=== PATIENT | male | born 1960 | race Two or more races ===

== ENCOUNTER 2022-06-19 | Inpatient (IN) | payer OTHER ==
[~2022-06-19] VITALS: Ht 172.7 cm; Wt 72.1 kg
[~2022-06-19] MED LIST: ACET650S26 GT; APIX5TAB GT; ASCO-352 GT; CHLO473M5 MM; DILT30TA14 GT; FURO10VI IV; GLYC2TAB21 GT; HYDR500C2 GT; INSU100V27 SQ; INSU100V7 SQ; IPRA3AMP23 IH; LANS30CA56 GT; LORA2VIA11 IV; METO25TA20 GT; MINE3.5O26 EACHEYE; SODI473S8 TD; ZINC56.713 TP; [UNRECOGNIZED DRUG - CODE] GT
[2022-06-21] MEDS ORDERED: LACTULOSE 10 G/15 ML UDC (PYXIS) GT PRN (07:36)
[2022-06-21] MEDS ORDERED: TUBERCULIN,PURIF.PROT.DERIV. 5 TU/0.1 ML VIAL ID SCH (07:36)
[2022-06-21] MEDS ORDERED: BISACODYL SUPP (10 MG) 10 MG/SUPP.RECT SUPP.RECT RC PRN (07:36)
[2022-06-21 07:44] VITALS: BP 159/79; TEMP 98.2; O2SAT 98
[2022-06-21] MEDS: HYDROGEN PEROXIDE 480 ML BOTTLE TP SCH ×2 (09:00→20:00)
[2022-06-21] MEDS: OMEPRAZOLE 20 MG CAPSULE.DR GT SCH (09:00)
[2022-06-21] MEDS: ASPIRIN 81 MG TAB.CHEW GT SCH (09:55)
[2022-06-21] MEDS: DOCUSATE SODIUM LIQ 100 MG/10 ML UDC GT SCH ×2 (09:55→21:26)
[2022-06-21] MEDS: FUROSEMIDE 20 MG TABLET GT SCH (09:55)
[2022-06-21] MEDS: ALPRAZOLAM 0.5 MG TABLET GT SCH ×2 (09:56→21:26)
[2022-06-21] MEDS: ASCORBIC ACID 500 MG TABLET GT SCH ×2 (09:56→21:26)
[2022-06-21] MEDS: VITAMINS A AND D 56.7 GM TUBE TP SCH ×2 (09:56→21:27)
[2022-06-21] MEDS: APIXABAN 5 MG TABLET PO SCH ×2 (09:56→21:27)
[2022-06-21] MEDS: CHLORHEXIDINE GLUCONATE 15 ML UDC MM SCH ×2 (09:56→21:26)
[2022-06-21] MEDS: PROSTAT (PYXIS) 30 ML UDC GT SCH ×2 (09:58→17:23)
[2022-06-21] MEDS: BACLOFEN (10 MG) 10 MG TABLET PEG SCH ×2 (13:00→21:26)
[2022-06-21] MEDS: METOPROLOL TARTRATE 25 MG TABLET GT SCH ×2 (13:00→21:26)
[2022-06-21] MEDS: ALBUTEROL FS 2.5 MG/0.5 ML VIAL.NEB NEB SCH ×2 (13:30→18:35)
[2022-06-21] MEDS: IPRATROPIUM NEB FS 0.5 MG/2.5 ML AMPUL.NEB NEB SCH ×2 (13:30→18:35)
[2022-06-21 13:49] VITALS: O2SAT 100
[2022-06-21 19:31] VITALS: BP 109/77; TEMP 97.8; O2SAT 100
[2022-06-21 22:37] VITALS: O2SAT 99
[2022-06-21 22:54] VITALS: O2SAT 100
[2022-06-21] MEDS: JEVITY 1.2 CAL 1,000 ML BOTTLE GT PRN (23:43)
[2022-06-22] MEDS: IPRATROPIUM NEB FS 0.5 MG/2.5 ML AMPUL.NEB NEB SCH ×4 (00:55→20:00)
[2022-06-22] MEDS: ALBUTEROL FS 2.5 MG/0.5 ML VIAL.NEB NEB SCH ×4 (00:55→20:00)
[2022-06-22] MEDS: METOPROLOL TARTRATE 25 MG TABLET GT SCH ×3 (05:29→20:57)
[2022-06-22] MEDS: BACLOFEN (10 MG) 10 MG TABLET PEG SCH ×3 (05:29→20:58)
[2022-06-22 07:28] VITALS: BP 98/67; TEMP 97.7; O2SAT 99
[2022-06-22] MEDS: DOCUSATE SODIUM LIQ 100 MG/10 ML UDC GT SCH ×2 (09:13→20:57)
[2022-06-22] MEDS: FUROSEMIDE 20 MG TABLET GT SCH (09:13)
[2022-06-22] MEDS: ASPIRIN 81 MG TAB.CHEW GT SCH (09:13)
[2022-06-22] MEDS: CHLORHEXIDINE GLUCONATE 15 ML UDC MM SCH ×2 (09:14→20:58)
[2022-06-22] MEDS: OMEPRAZOLE 20 MG CAPSULE.DR GT SCH (09:14)
[2022-06-22] MEDS: VITAMINS A AND D 56.7 GM TUBE TP SCH ×2 (09:14→20:58)
[2022-06-22] MEDS: APIXABAN 5 MG TABLET PO SCH ×2 (09:14→20:58)
[2022-06-22] MEDS: ALPRAZOLAM 0.5 MG TABLET GT SCH ×2 (09:14→20:58)
[2022-06-22] MEDS: PROSTAT (PYXIS) 30 ML UDC GT SCH ×2 (09:14→17:00)
[2022-06-22] MEDS: ASCORBIC ACID 500 MG TABLET GT SCH ×2 (09:14→20:58)
[2022-06-22] MEDS: HYDROGEN PEROXIDE 480 ML BOTTLE TP SCH ×2 (09:39→20:01)
[2022-06-22 10:10] VITALS: O2SAT 100
[2022-06-22 12:11] VITALS: BP 108/70; TEMP 97.4; O2SAT 100
[2022-06-22] MEDS: JEVITY 1.2 CAL 1,000 ML BOTTLE GT PRN (18:16)
[2022-06-22 20:28] VITALS: BP 100/59; TEMP 97.7; O2SAT 98
[2022-06-22 22:46] VITALS: O2SAT 100
[2022-06-23 00:11] VITALS: BP 103/61; TEMP 97.7; O2SAT 99
[2022-06-23] MEDS: IPRATROPIUM NEB FS 0.5 MG/2.5 ML AMPUL.NEB NEB SCH ×4 (01:42→20:06)
[2022-06-23] MEDS: ALBUTEROL FS 2.5 MG/0.5 ML VIAL.NEB NEB SCH ×4 (01:42→20:06)
[2022-06-23] MEDS: METOPROLOL TARTRATE 25 MG TABLET GT SCH ×3 (05:00→20:54)
[2022-06-23] MEDS: BACLOFEN (10 MG) 10 MG TABLET PEG SCH ×3 (05:47→20:54)
[2022-06-23 07:39] VITALS: BP 102/59; TEMP 98.4; O2SAT 100
[2022-06-23] MEDS: HYDROGEN PEROXIDE 480 ML BOTTLE TP SCH ×2 (09:00→20:06)
[2022-06-23] MEDS: ASPIRIN 81 MG TAB.CHEW GT SCH (09:43)
[2022-06-23] MEDS: DOCUSATE SODIUM LIQ 100 MG/10 ML UDC GT SCH ×2 (09:43→20:53)
[2022-06-23] MEDS: OMEPRAZOLE 20 MG CAPSULE.DR GT SCH (09:46)
[2022-06-23] MEDS: FUROSEMIDE 20 MG TABLET GT SCH (09:46)
[2022-06-23] MEDS: PROSTAT (PYXIS) 30 ML UDC GT SCH ×2 (09:46→16:47)
[2022-06-23] MEDS: ASCORBIC ACID 500 MG TABLET GT SCH ×2 (09:46→20:54)
[2022-06-23] MEDS: CHLORHEXIDINE GLUCONATE 15 ML UDC MM SCH ×2 (09:46→20:54)
[2022-06-23] MEDS: ALPRAZOLAM 0.5 MG TABLET GT SCH ×2 (09:46→20:54)
[2022-06-23] MEDS: VITAMINS A AND D 56.7 GM TUBE TP SCH ×2 (09:47→20:54)
[2022-06-23] MEDS: APIXABAN 5 MG TABLET PO SCH ×2 (09:47→20:54)
[2022-06-23 12:14] VITALS: BP 115/65; TEMP 98.1; O2SAT 98
[2022-06-23] MEDS: LANOLIN/MIN OIL/PETROLAT,WHT 3.5 GM TUBE EACHEYE PRN (13:42)
[2022-06-23 14:33] VITALS: O2SAT 100
[2022-06-23] MEDS: JEVITY 1.2 CAL 1,000 ML BOTTLE GT PRN (14:37)
[2022-06-23] MEDS: MAGNESIUM HYDROXIDE 30 ML UDC GT PRN (16:48)
[2022-06-23 19:40] VITALS: BP 123/58; TEMP 97.1; O2SAT 100
[2022-06-23 23:21] VITALS: O2SAT 100
[2022-06-24 00:09] VITALS: BP 130/65; TEMP 98.9; O2SAT 100
[2022-06-24] MEDS: ACETAMINOPHEN 650 MG/20 ML UDC- SA PATIENTS-PAIN ONLY GT PRN (01:39)
[2022-06-24] MEDS: IPRATROPIUM NEB FS 0.5 MG/2.5 ML AMPUL.NEB NEB SCH ×4 (01:53→19:07)
[2022-06-24] MEDS: ALBUTEROL FS 2.5 MG/0.5 ML VIAL.NEB NEB SCH ×4 (01:53→19:07)
[2022-06-24] MEDS: METOPROLOL TARTRATE 25 MG TABLET GT SCH ×3 (05:12→21:18)
[2022-06-24] MEDS: BACLOFEN (10 MG) 10 MG TABLET PEG SCH ×3 (05:12→21:19)
[2022-06-24 07:40] VITALS: BP 110/77; TEMP 97.8; O2SAT 100
[2022-06-24] MEDS: HYDROGEN PEROXIDE 480 ML BOTTLE TP SCH ×2 (09:00→21:16)
[2022-06-24] MEDS: ASPIRIN 81 MG TAB.CHEW GT SCH (09:39)
[2022-06-24] MEDS: DOCUSATE SODIUM LIQ 100 MG/10 ML UDC GT SCH ×2 (09:39→21:17)
[2022-06-24] MEDS: OMEPRAZOLE 20 MG CAPSULE.DR GT SCH (09:39)
[2022-06-24] MEDS: FUROSEMIDE 20 MG TABLET GT SCH (09:39)
[2022-06-24] MEDS: PROSTAT (PYXIS) 30 ML UDC GT SCH ×2 (09:40→16:55)
[2022-06-24] MEDS: CHLORHEXIDINE GLUCONATE 15 ML UDC MM SCH ×2 (09:40→21:19)
[2022-06-24] MEDS: ASCORBIC ACID 500 MG TABLET GT SCH ×2 (09:40→21:18)
[2022-06-24] MEDS: ALPRAZOLAM 0.5 MG TABLET GT SCH ×2 (09:40→21:18)
[2022-06-24] MEDS: VITAMINS A AND D 56.7 GM TUBE TP SCH ×2 (09:41→21:19)
[2022-06-24] MEDS: APIXABAN 5 MG TABLET PO SCH ×2 (09:41→21:00)
[2022-06-24] MEDS: JEVITY 1.2 CAL 1,000 ML BOTTLE GT PRN (14:20)
[2022-06-24 14:21] VITALS: O2SAT 100
[2022-06-24 19:06] VITALS: BP 133/72; TEMP 97.9; O2SAT 100
[2022-06-24 23:31] VITALS: O2SAT 100
[2022-06-24 23:50] VITALS: BP 128/65; TEMP 98; O2SAT 100
[2022-06-25] MEDS: ALBUTEROL FS 2.5 MG/0.5 ML VIAL.NEB NEB SCH ×4 (00:43→19:18)
[2022-06-25] MEDS: IPRATROPIUM NEB FS 0.5 MG/2.5 ML AMPUL.NEB NEB SCH ×4 (00:43→19:18)
[2022-06-25] MEDS: BACLOFEN (10 MG) 10 MG TABLET PEG SCH ×3 (05:43→21:04)
[2022-06-25 07:33] VITALS: BP 131/87; TEMP 97.6; O2SAT 97
[2022-06-25] MEDS: DOCUSATE SODIUM LIQ 100 MG/10 ML UDC GT SCH ×2 (08:27→21:04)
[2022-06-25] MEDS: ASPIRIN 81 MG TAB.CHEW GT SCH (08:27)
[2022-06-25] MEDS: FUROSEMIDE 20 MG TABLET GT SCH (08:28)
[2022-06-25] MEDS: METOPROLOL TARTRATE 25 MG TABLET GT SCH ×2 (08:29→21:04)
[2022-06-25] MEDS: ASCORBIC ACID 500 MG TABLET GT SCH ×2 (08:30→21:04)
[2022-06-25] MEDS: OMEPRAZOLE 20 MG CAPSULE.DR GT SCH (08:30)
[2022-06-25] MEDS: PROSTAT (PYXIS) 30 ML UDC GT SCH ×2 (08:30→17:04)
[2022-06-25] MEDS: CHLORHEXIDINE GLUCONATE 15 ML UDC MM SCH ×2 (08:31→21:04)
[2022-06-25] MEDS: ALPRAZOLAM 0.5 MG TABLET GT SCH ×2 (08:31→21:04)
[2022-06-25] MEDS: VITAMINS A AND D 56.7 GM TUBE TP SCH ×2 (09:00→21:07)
[2022-06-25] MEDS: APIXABAN 5 MG TABLET PO SCH ×2 (09:00→21:07)
[2022-06-25] MEDS: HYDROGEN PEROXIDE 480 ML BOTTLE TP SCH ×2 (09:04→20:41)
[2022-06-25 11:36] VITALS: O2SAT 100
[2022-06-25 12:13] VITALS: BP 142/79; TEMP 98; O2SAT 99
[2022-06-25] MEDS: JEVITY 1.2 CAL 1,000 ML BOTTLE GT PRN (13:21)
[2022-06-25 18:55] VITALS: BP 122/76; TEMP 97.7; O2SAT 100
[2022-06-25 23:30] VITALS: O2SAT 100
[2022-06-26 00:02] VITALS: BP 129/77; TEMP 98.6; O2SAT 100
[2022-06-26] MEDS: ACETAMINOPHEN 650 MG/20 ML UDC- SA PATIENTS-PAIN ONLY GT PRN (01:12)
[2022-06-26] MEDS: ALBUTEROL FS 2.5 MG/0.5 ML VIAL.NEB NEB SCH ×4 (01:30→18:48)
[2022-06-26] MEDS: IPRATROPIUM NEB FS 0.5 MG/2.5 ML AMPUL.NEB NEB SCH ×4 (01:30→18:48)
[2022-06-26] MEDS: BACLOFEN (10 MG) 10 MG TABLET PEG SCH ×3 (05:28→21:09)
[2022-06-26 07:41] VITALS: BP 124/70; TEMP 98.2; O2SAT 98
[2022-06-26] MEDS: FUROSEMIDE 20 MG TABLET GT SCH (08:50)
[2022-06-26] MEDS: DOCUSATE SODIUM LIQ 100 MG/10 ML UDC GT SCH ×2 (08:50→21:09)
[2022-06-26] MEDS: ASPIRIN 81 MG TAB.CHEW GT SCH (08:50)
[2022-06-26] MEDS: ASCORBIC ACID 500 MG TABLET GT SCH ×2 (08:51→21:09)
[2022-06-26] MEDS: PROSTAT (PYXIS) 30 ML UDC GT SCH ×2 (08:51→16:31)
[2022-06-26] MEDS: CHLORHEXIDINE GLUCONATE 15 ML UDC MM SCH ×2 (08:51→21:09)
[2022-06-26] MEDS: ALPRAZOLAM 0.5 MG TABLET GT SCH ×2 (08:51→21:09)
[2022-06-26] MEDS: OMEPRAZOLE 20 MG CAPSULE.DR GT SCH (08:51)
[2022-06-26] MEDS: METOPROLOL TARTRATE 25 MG TABLET GT SCH ×2 (08:51→21:00)
[2022-06-26] MEDS: VITAMINS A AND D 56.7 GM TUBE TP SCH ×2 (08:52→21:10)
[2022-06-26] MEDS: JEVITY 1.2 CAL 1,000 ML BOTTLE GT PRN (08:59)
[2022-06-26] MEDS: APIXABAN 5 MG TABLET PO SCH ×2 (09:00→21:00)
[2022-06-26] MEDS: HYDROGEN PEROXIDE 480 ML BOTTLE TP SCH ×2 (09:54→20:44)
[2022-06-26 10:26] VITALS: O2SAT 100
[2022-06-26 19:37] VITALS: BP 104/70; TEMP 98.2; O2SAT 100
[2022-06-26 22:51] VITALS: O2SAT 100
[2022-06-27] MEDS: ALBUTEROL FS 2.5 MG/0.5 ML VIAL.NEB NEB SCH ×4 (00:40→18:47)
[2022-06-27] MEDS: IPRATROPIUM NEB FS 0.5 MG/2.5 ML AMPUL.NEB NEB SCH ×4 (00:40→18:47)
[2022-06-27 01:40] VITALS: BP 115/68; TEMP 97.8; O2SAT 100
[2022-06-27] MEDS: BACLOFEN (10 MG) 10 MG TABLET PEG SCH ×3 (05:28→21:25)
[2022-06-27] MEDS: JEVITY 1.2 CAL 1,000 ML BOTTLE GT PRN ×2 (05:28→06:28)
[2022-06-27 07:06] VITALS: BP 103/71; TEMP 97.3; O2SAT 100
[2022-06-27 07:14] LABS: BASOPHILS % (AUTO) 0.3 % (0.0-2.0); EOSINOPHILS # (AUTO) 0.1 K/uL (0.0-0.7); EOSINOPHILS % (AUTO) 0.8 % (0.0-6.0); HEMATOCRIT 34 % (39-51); HEMOGLOBIN 10.4 g/dL (13.5-17.5); LYMPHOCYTES # (AUTO) 1.1 K/uL (0.8-4.8); LYMPHOCYTES % (AUTO) 11.4 % (20.0-44.0); MEAN CORPUSCULAR HEMOGLOBIN 29 PG (26.0-33.0); MEAN CORPUSCULAR HGB CONC 31 g/dl (31.0-36.0); MEAN CORPUSCULAR VOLUME 93 fL (80-96); MONOCYTES # (AUTO) 1.1 K/uL (0.1-1.30); MONOCYTES % (AUTO) 11.5 % (2.0-12.0); NEUTROPHILS # (AUTO) 7.4 K/uL (1.8-8.9); PLATELET COUNT (AUTO) 449 K/uL (150-450); RED BLOOD CELL COUNT(AUTO) 3.63 MIL/uL (4.5-6.0); RED CELL DISTRIBUTION WIDTH 17.5 % (11.5-15.0); WHITE BLOOD COUNT (AUTO) 9.8 K/uL (4.3-11.0)
[2022-06-27 07:38] LABS: CALCIUM, SERUM 8.4 mg/dL (8.5-10.1); CREATININE 0.9 mg/dL (0.6-1.3); POTASSIUM 4.2 mmol/L (3.5-5.1)
[2022-06-27] MEDS: METOPROLOL TARTRATE 25 MG TABLET GT SCH ×2 (09:00→21:20)
[2022-06-27] MEDS: HYDROGEN PEROXIDE 480 ML BOTTLE TP SCH ×2 (09:29→20:24)
[2022-06-27] MEDS: FUROSEMIDE 20 MG TABLET GT SCH (09:51)
[2022-06-27] MEDS: ASPIRIN 81 MG TAB.CHEW GT SCH (09:51)
[2022-06-27] MEDS: DOCUSATE SODIUM LIQ 100 MG/10 ML UDC GT SCH ×2 (09:51→21:20)
[2022-06-27] MEDS: PROSTAT (PYXIS) 30 ML UDC GT SCH ×2 (09:54→16:53)
[2022-06-27] MEDS: CHLORHEXIDINE GLUCONATE 15 ML UDC MM SCH ×2 (09:54→21:25)
[2022-06-27] MEDS: OMEPRAZOLE 20 MG CAPSULE.DR GT SCH (09:54)
[2022-06-27] MEDS: ASCORBIC ACID 500 MG TABLET GT SCH ×2 (09:54→21:25)
[2022-06-27] MEDS: ALPRAZOLAM 0.5 MG TABLET GT SCH ×2 (09:54→21:25)
[2022-06-27] MEDS: APIXABAN 5 MG TABLET PO SCH ×2 (09:55→21:25)
[2022-06-27] MEDS: VITAMINS A AND D 56.7 GM TUBE TP SCH ×2 (09:55→21:25)
[2022-06-27 11:26] VITALS: BP 114/71; TEMP 97.7; O2SAT 100
[2022-06-27 12:11] VITALS: O2SAT 100
[2022-06-27 20:00] VITALS: BP 141/83; TEMP 97.9; O2SAT 100
[2022-06-27 23:13] VITALS: O2SAT 100
[2022-06-28] MEDS: ALBUTEROL FS 2.5 MG/0.5 ML VIAL.NEB NEB SCH ×4 (00:39→20:20)
[2022-06-28] MEDS: IPRATROPIUM NEB FS 0.5 MG/2.5 ML AMPUL.NEB NEB SCH ×4 (00:39→20:20)
[2022-06-28] MEDS: BACLOFEN (10 MG) 10 MG TABLET PEG SCH ×3 (05:19→21:22)
[2022-06-28] MEDS: JEVITY 1.2 CAL 1,000 ML BOTTLE GT PRN ×2 (05:19→17:19)
[2022-06-28 07:08] VITALS: BP 133/85; TEMP 98.6; O2SAT 100
[2022-06-28] MEDS: PROSTAT (PYXIS) 30 ML UDC GT SCH ×2 (08:58→16:44)
[2022-06-28] MEDS: CHLORHEXIDINE GLUCONATE 15 ML UDC MM SCH ×2 (08:58→21:22)
[2022-06-28] MEDS: FUROSEMIDE 20 MG TABLET GT SCH (08:58)
[2022-06-28] MEDS: ASCORBIC ACID 500 MG TABLET GT SCH ×2 (08:58→21:22)
[2022-06-28] MEDS: ALPRAZOLAM 0.5 MG TABLET GT SCH ×2 (08:58→21:22)
[2022-06-28] MEDS: DOCUSATE SODIUM LIQ 100 MG/10 ML UDC GT SCH ×2 (08:58→21:21)
[2022-06-28] MEDS: ASPIRIN 81 MG TAB.CHEW GT SCH (08:58)
[2022-06-28] MEDS: OMEPRAZOLE 20 MG CAPSULE.DR GT SCH (08:58)
[2022-06-28] MEDS: METOPROLOL TARTRATE 25 MG TABLET GT SCH ×2 (08:58→21:00)
[2022-06-28] MEDS: APIXABAN 5 MG TABLET PO SCH ×2 (08:59→21:00)
[2022-06-28] MEDS: VITAMINS A AND D 56.7 GM TUBE TP SCH ×2 (08:59→21:23)
[2022-06-28] MEDS: HYDROGEN PEROXIDE 480 ML BOTTLE TP SCH ×2 (11:04→21:08)
[2022-06-28 11:40] VITALS: BP 129/80; TEMP 98.8; O2SAT 100
[2022-06-28 14:31] VITALS: O2SAT 100
[2022-06-28 19:41] VITALS: BP 108/77; TEMP 98.7; O2SAT 100
[2022-06-28 22:39] VITALS: O2SAT 100
[2022-06-29] MEDS: ALBUTEROL FS 2.5 MG/0.5 ML VIAL.NEB NEB SCH ×4 (01:20→19:57)
[2022-06-29] MEDS: IPRATROPIUM NEB FS 0.5 MG/2.5 ML AMPUL.NEB NEB SCH ×4 (01:20→19:57)
[2022-06-29] MEDS: BACLOFEN (10 MG) 10 MG TABLET PEG SCH ×3 (05:42→21:07)
[2022-06-29 08:00] VITALS: BP 110/70; TEMP 97.9; O2SAT 100
[2022-06-29] MEDS: HYDROGEN PEROXIDE 480 ML BOTTLE TP SCH ×2 (08:18→19:57)
[2022-06-29] MEDS: METOPROLOL TARTRATE 25 MG TABLET GT SCH ×2 (09:54→21:07)
[2022-06-29] MEDS: PROSTAT (PYXIS) 30 ML UDC GT SCH ×2 (09:54→17:00)
[2022-06-29] MEDS: OMEPRAZOLE 20 MG CAPSULE.DR GT SCH (09:54)
[2022-06-29] MEDS: ASCORBIC ACID 500 MG TABLET GT SCH ×2 (09:54→21:07)
[2022-06-29] MEDS: DOCUSATE SODIUM LIQ 100 MG/10 ML UDC GT SCH ×2 (09:54→21:07)
[2022-06-29] MEDS: ALPRAZOLAM 0.5 MG TABLET GT SCH ×2 (09:54→21:07)
[2022-06-29] MEDS: ASPIRIN 81 MG TAB.CHEW GT SCH (09:54)
[2022-06-29] MEDS: FUROSEMIDE 20 MG TABLET GT SCH (09:54)
[2022-06-29] MEDS: CHLORHEXIDINE GLUCONATE 15 ML UDC MM SCH ×2 (09:54→21:07)
[2022-06-29] MEDS: APIXABAN 5 MG TABLET PO SCH ×2 (09:55→21:08)
[2022-06-29] MEDS: VITAMINS A AND D 56.7 GM TUBE TP SCH ×2 (09:55→21:08)
[2022-06-29 10:47] VITALS: O2SAT 100
[2022-06-29 12:00] VITALS: BP_SYST 100; TEMP 98.5
[2022-06-29] MEDS: JEVITY 1.2 CAL 1,000 ML BOTTLE GT PRN (17:21)
[2022-06-29 21:36] VITALS: BP 128/59; TEMP 97.5; O2SAT 97
[2022-06-29 22:25] VITALS: O2SAT 100
[2022-06-30] VITALS: BP 97/71; TEMP 97.9; O2SAT 98
[2022-06-30] MEDS: IPRATROPIUM NEB FS 0.5 MG/2.5 ML AMPUL.NEB NEB SCH ×4 (01:40→13:10)
[2022-06-30] MEDS: ALBUTEROL FS 2.5 MG/0.5 ML VIAL.NEB NEB SCH ×4 (01:41→13:10)
[2022-06-30] MEDS: BACLOFEN (10 MG) 10 MG TABLET PEG SCH ×3 (05:05→20:01)
[2022-06-30 07:38] VITALS: BP 130/80; TEMP 97.7; O2SAT 99
[2022-06-30] MEDS: HYDROGEN PEROXIDE 480 ML BOTTLE TP SCH ×2 (08:05→08:43)
[2022-06-30] MEDS: ASPIRIN 81 MG TAB.CHEW GT SCH (09:22)
[2022-06-30] MEDS: FUROSEMIDE 20 MG TABLET GT SCH (09:22)
[2022-06-30] MEDS: DOCUSATE SODIUM LIQ 100 MG/10 ML UDC GT SCH ×2 (09:22→20:00)
[2022-06-30] MEDS: VITAMINS A AND D 56.7 GM TUBE TP SCH ×2 (09:23→20:02)
[2022-06-30] MEDS: APIXABAN 5 MG TABLET PO SCH ×2 (09:23→20:01)
[2022-06-30] MEDS: OMEPRAZOLE 20 MG CAPSULE.DR GT SCH (09:23)
[2022-06-30] MEDS: METOPROLOL TARTRATE 25 MG TABLET GT SCH ×2 (09:23→20:01)
[2022-06-30] MEDS: PROSTAT (PYXIS) 30 ML UDC GT SCH ×2 (09:23→17:00)
[2022-06-30] MEDS: ASCORBIC ACID 500 MG TABLET GT SCH ×2 (09:23→20:01)
[2022-06-30] MEDS: ALPRAZOLAM 0.5 MG TABLET GT SCH ×2 (09:23→20:01)
[2022-06-30] MEDS: CHLORHEXIDINE GLUCONATE 15 ML UDC MM SCH ×2 (09:23→20:01)
[2022-06-30 12:31] VITALS: O2SAT 100
[2022-06-30] MEDS: JEVITY 1.2 CAL 1,000 ML BOTTLE GT PRN (13:34)
[2022-06-30 14:20] VITALS: BP 112/72; TEMP 97.8; O2SAT 100
[2022-06-30 18:54] VITALS: BP 135/60; TEMP 98.6; O2SAT 95
[2022-06-30 22:15] VITALS: O2SAT 100
[2022-07-01 00:18] VITALS: BP 96/62; TEMP 98.5; O2SAT 100
[2022-07-01] MEDS: ALBUTEROL FS 2.5 MG/0.5 ML VIAL.NEB NEB SCH ×4 (01:44→19:01)
[2022-07-01] MEDS: IPRATROPIUM NEB FS 0.5 MG/2.5 ML AMPUL.NEB NEB SCH ×4 (01:44→19:01)
[2022-07-01] MEDS: BACLOFEN (10 MG) 10 MG TABLET PEG SCH ×3 (05:29→20:38)
[2022-07-01] MEDS: JEVITY 1.2 CAL 1,000 ML BOTTLE GT PRN (05:29)
[2022-07-01 07:20] VITALS: BP 133/72; TEMP 98.3; O2SAT 100
[2022-07-01] MEDS: ASPIRIN 81 MG TAB.CHEW GT SCH (08:41)
[2022-07-01] MEDS: DOCUSATE SODIUM LIQ 100 MG/10 ML UDC GT SCH ×2 (08:46→20:37)
[2022-07-01] MEDS: FUROSEMIDE 20 MG TABLET GT SCH (08:47)
[2022-07-01] MEDS: OMEPRAZOLE 20 MG CAPSULE.DR GT SCH (08:48)
[2022-07-01] MEDS: METOPROLOL TARTRATE 25 MG TABLET GT SCH ×2 (08:48→20:37)
[2022-07-01] MEDS: PROSTAT (PYXIS) 30 ML UDC GT SCH ×2 (08:48→16:18)
[2022-07-01] MEDS: ALPRAZOLAM 0.5 MG TABLET GT SCH ×2 (08:49→20:38)
[2022-07-01] MEDS: ASCORBIC ACID 500 MG TABLET GT SCH ×2 (08:49→20:38)
[2022-07-01] MEDS: CHLORHEXIDINE GLUCONATE 15 ML UDC MM SCH ×2 (08:50→20:38)
[2022-07-01] MEDS: VITAMINS A AND D 56.7 GM TUBE TP SCH ×2 (08:50→20:38)
[2022-07-01] MEDS: APIXABAN 5 MG TABLET PO SCH ×2 (08:52→20:38)
[2022-07-01] MEDS: HYDROGEN PEROXIDE 480 ML BOTTLE TP SCH ×2 (09:17→20:32)
[2022-07-01 10:16] VITALS: O2SAT 100
[2022-07-01 11:11] VITALS: BP 98/48; TEMP 98.9; O2SAT 100
[2022-07-01 19:16] VITALS: BP 95/57; TEMP 98.5; O2SAT 98
[2022-07-01 22:30] VITALS: O2SAT 100
[2022-07-02] VITALS (8 sets, daily range): BP systolic 95–120; BP diastolic 57–69; TEMP 97.8–102.6; O2SAT 94–100
[2022-07-02] MEDS: ALBUTEROL FS 2.5 MG/0.5 ML VIAL.NEB NEB SCH ×4 (00:41→20:00)
[2022-07-02] MEDS: IPRATROPIUM NEB FS 0.5 MG/2.5 ML AMPUL.NEB NEB SCH ×4 (00:41→20:00)
[2022-07-02] MEDS: JEVITY 1.2 CAL 1,000 ML BOTTLE GT PRN ×2 (05:06→18:33)
[2022-07-02] MEDS: BACLOFEN (10 MG) 10 MG TABLET PEG SCH ×3 (05:06→20:35)
[2022-07-02] MEDS: ASPIRIN 81 MG TAB.CHEW GT SCH (09:08)
[2022-07-02] MEDS: DOCUSATE SODIUM LIQ 100 MG/10 ML UDC GT SCH ×2 (09:08→20:35)
[2022-07-02] MEDS: METOPROLOL TARTRATE 25 MG TABLET GT SCH ×2 (09:09→20:35)
[2022-07-02] MEDS: FUROSEMIDE 20 MG TABLET GT SCH (09:09)
[2022-07-02] MEDS: APIXABAN 5 MG TABLET PO SCH ×2 (09:10→20:35)
[2022-07-02] MEDS: ASCORBIC ACID 500 MG TABLET GT SCH ×2 (09:11→20:35)
[2022-07-02] MEDS: PROSTAT (PYXIS) 30 ML UDC GT SCH ×2 (09:11→16:47)
[2022-07-02] MEDS: OMEPRAZOLE 20 MG CAPSULE.DR GT SCH (09:11)
[2022-07-02] MEDS: ALPRAZOLAM 0.5 MG TABLET GT SCH ×2 (09:12→20:35)
[2022-07-02] MEDS: VITAMINS A AND D 56.7 GM TUBE TP SCH ×2 (09:12→20:35)
[2022-07-02] MEDS: CHLORHEXIDINE GLUCONATE 15 ML UDC MM SCH ×2 (09:12→20:35)
[2022-07-02] MEDS: HYDROGEN PEROXIDE 480 ML BOTTLE TP SCH ×2 (09:26→20:00)
[2022-07-02] MEDS: ACETAMINOPHEN 650 MG/20 ML UDC- SA PATIENTS-FEVER ONLY GT PRN (23:24)
[2022-07-03] MEDS: IPRATROPIUM NEB FS 0.5 MG/2.5 ML AMPUL.NEB NEB SCH ×5 (01:45→19:40)
[2022-07-03] MEDS: ALBUTEROL FS 2.5 MG/0.5 ML VIAL.NEB NEB SCH ×5 (01:45→19:40)
[2022-07-03] MEDS: BACLOFEN (10 MG) 10 MG TABLET PEG SCH ×3 (05:26→20:34)
[2022-07-03 08:03] VITALS: BP 132/82; TEMP 101.6; O2SAT 96
[2022-07-03] MEDS: HYDROGEN PEROXIDE 480 ML BOTTLE TP SCH ×2 (08:06→19:33)
[2022-07-03] MEDS: METOPROLOL TARTRATE 25 MG TABLET GT SCH ×2 (09:06→20:34)
[2022-07-03] MEDS: ASPIRIN 81 MG TAB.CHEW GT SCH (09:06)
[2022-07-03] MEDS: DOCUSATE SODIUM LIQ 100 MG/10 ML UDC GT SCH ×2 (09:06→20:33)
[2022-07-03] MEDS: FUROSEMIDE 20 MG TABLET GT SCH (09:06)
[2022-07-03] MEDS: CHLORHEXIDINE GLUCONATE 15 ML UDC MM SCH ×2 (09:07→20:34)
[2022-07-03] MEDS: ASCORBIC ACID 500 MG TABLET GT SCH ×2 (09:07→20:34)
[2022-07-03] MEDS: PROSTAT (PYXIS) 30 ML UDC GT SCH ×2 (09:07→17:14)
[2022-07-03] MEDS: OMEPRAZOLE 20 MG CAPSULE.DR GT SCH (09:07)
[2022-07-03] MEDS: ALPRAZOLAM 0.5 MG TABLET GT SCH ×2 (09:07→20:34)
[2022-07-03] MEDS: VITAMINS A AND D 56.7 GM TUBE TP SCH ×2 (09:08→20:34)
[2022-07-03] MEDS: APIXABAN 5 MG TABLET PO SCH (09:08)
[2022-07-03] MEDS: ACETAMINOPHEN 650 MG/20 ML UDC- SA PATIENTS-FEVER ONLY GT PRN (09:10)
[2022-07-03 12:58] VITALS: BP 103/63; TEMP 98.9; O2SAT 98
[2022-07-03] MEDS: dexaMETHasone SOD PHOSPHATE 10 MG/ML VIAL IV SCH (14:00)
[2022-07-03] MEDS: PAXLOVID PO SCH (17:59)
[2022-07-03] MEDS: JEVITY 1.2 CAL 1,000 ML BOTTLE GT PRN (18:51)
[2022-07-03 19:15] VITALS: BP 107/66; TEMP 97.5; O2SAT 100
[2022-07-03 22:33] VITALS: O2SAT 100
[2022-07-04] MEDS: ALBUTEROL FS 2.5 MG/0.5 ML VIAL.NEB NEB SCH ×4 (01:35→19:30)
[2022-07-04] MEDS: IPRATROPIUM NEB FS 0.5 MG/2.5 ML AMPUL.NEB NEB SCH ×4 (01:35→19:30)
[2022-07-04] MEDS: BACLOFEN (10 MG) 10 MG TABLET PEG SCH ×3 (05:19→20:33)
[2022-07-04] MEDS: HYDROGEN PEROXIDE 480 ML BOTTLE TP SCH ×2 (07:32→20:20)
[2022-07-04 07:53] VITALS: BP 140/77; TEMP 97.4; O2SAT 100
[2022-07-04] MEDS: CHLORHEXIDINE GLUCONATE 15 ML UDC MM SCH ×2 (09:00→20:33)
[2022-07-04] MEDS: ASCORBIC ACID 500 MG TABLET GT SCH ×2 (09:00→20:33)
[2022-07-04] MEDS: OMEPRAZOLE 20 MG CAPSULE.DR GT SCH (09:00)
[2022-07-04] MEDS: PAXLOVID PO SCH ×2 (09:00→16:57)
[2022-07-04] MEDS: PROSTAT (PYXIS) 30 ML UDC GT SCH ×2 (09:00→16:57)
[2022-07-04] MEDS: METOPROLOL TARTRATE 25 MG TABLET GT SCH ×2 (09:00→20:33)
[2022-07-04] MEDS: ALPRAZOLAM 0.5 MG TABLET GT SCH ×2 (09:00→20:33)
[2022-07-04] MEDS: ASPIRIN 81 MG TAB.CHEW GT SCH (09:00)
[2022-07-04] MEDS: VITAMINS A AND D 56.7 GM TUBE TP SCH ×2 (09:00→20:34)
[2022-07-04] MEDS: DOCUSATE SODIUM LIQ 100 MG/10 ML UDC GT SCH ×2 (09:00→20:32)
[2022-07-04] MEDS: FUROSEMIDE 20 MG TABLET GT SCH (09:00)
[2022-07-04 11:15] VITALS: O2SAT 100
[2022-07-04 12:03] VITALS: BP 142/79; TEMP 97.7; O2SAT 100
[2022-07-04] MEDS: dexaMETHasone SOD PHOSPHATE 10 MG/ML VIAL IV SCH (14:49)
[2022-07-04] MEDS: JEVITY 1.2 CAL 1,000 ML BOTTLE GT PRN (18:58)
[2022-07-04 20:19] VITALS: BP 93/56; TEMP 95.9; O2SAT 100
[2022-07-04 23:24] VITALS: O2SAT 100
[2022-07-05] MEDS: ALBUTEROL FS 2.5 MG/0.5 ML VIAL.NEB NEB SCH ×3 (01:30→13:30)
[2022-07-05] MEDS: IPRATROPIUM NEB FS 0.5 MG/2.5 ML AMPUL.NEB NEB SCH ×4 (01:30→19:30)
[2022-07-05] MEDS: BACLOFEN (10 MG) 10 MG TABLET PEG SCH ×3 (05:20→20:31)
[2022-07-05 07:39] VITALS: BP 116/68; TEMP 97.7; O2SAT 100
[2022-07-05] MEDS: HYDROGEN PEROXIDE 480 ML BOTTLE TP SCH ×2 (08:24→19:53)
[2022-07-05] MEDS: ASPIRIN 81 MG TAB.CHEW GT SCH (09:10)
[2022-07-05] MEDS: DOCUSATE SODIUM LIQ 100 MG/10 ML UDC GT SCH ×2 (09:10→20:31)
[2022-07-05] MEDS: FUROSEMIDE 20 MG TABLET GT SCH (09:10)
[2022-07-05] MEDS: PAXLOVID GT SCH ×2 (09:10→17:20)
[2022-07-05] MEDS: ASCORBIC ACID 500 MG TABLET GT SCH ×2 (09:11→20:31)
[2022-07-05] MEDS: CHLORHEXIDINE GLUCONATE 15 ML UDC MM SCH ×2 (09:11→20:31)
[2022-07-05] MEDS: METOPROLOL TARTRATE 25 MG TABLET GT SCH ×2 (09:11→20:31)
[2022-07-05] MEDS: ALPRAZOLAM 0.5 MG TABLET GT SCH ×2 (09:11→20:31)
[2022-07-05] MEDS: VITAMINS A AND D 56.7 GM TUBE TP SCH ×2 (09:11→20:31)
[2022-07-05] MEDS: PROSTAT (PYXIS) 30 ML UDC GT SCH ×2 (09:11→17:20)
[2022-07-05] MEDS: OMEPRAZOLE 20 MG CAPSULE.DR GT SCH (09:11)
[2022-07-05 11:32] VITALS: BP 126/78; TEMP 97.8; O2SAT 100
[2022-07-05] MEDS: JEVITY 1.2 CAL 1,000 ML BOTTLE GT PRN (12:55)
[2022-07-05] MEDS: dexaMETHasone SOD PHOSPHATE 10 MG/ML VIAL IV SCH (13:06)
[2022-07-05 13:58] VITALS: O2SAT 100
[2022-07-05 20:00] VITALS: BP 132/75; TEMP 98.3; O2SAT 99
[2022-07-06 00:44] VITALS: O2SAT 100
[2022-07-06] MEDS: IPRATROPIUM NEB FS 0.5 MG/2.5 ML AMPUL.NEB NEB SCH ×4 (01:30→19:48)
[2022-07-06] MEDS: BACLOFEN (10 MG) 10 MG TABLET PEG SCH ×3 (05:27→21:08)
[2022-07-06 07:31] VITALS: BP 140/75; TEMP 97.8; O2SAT 98
[2022-07-06] MEDS: METOPROLOL TARTRATE 25 MG TABLET GT SCH ×2 (09:00→21:08)
[2022-07-06] MEDS: CHLORHEXIDINE GLUCONATE 15 ML UDC MM SCH ×2 (09:00→21:08)
[2022-07-06] MEDS: DOCUSATE SODIUM LIQ 100 MG/10 ML UDC GT SCH ×2 (09:00→21:07)
[2022-07-06] MEDS: FUROSEMIDE 20 MG TABLET GT SCH (09:00)
[2022-07-06] MEDS: PROSTAT (PYXIS) 30 ML UDC GT SCH ×2 (09:00→17:00)
[2022-07-06] MEDS: ASCORBIC ACID 500 MG TABLET GT SCH ×2 (09:00→21:08)
[2022-07-06] MEDS: ASPIRIN 81 MG TAB.CHEW GT SCH (09:00)
[2022-07-06] MEDS: ALPRAZOLAM 0.5 MG TABLET GT SCH ×2 (09:00→21:08)
[2022-07-06] MEDS: VITAMINS A AND D 56.7 GM TUBE TP SCH ×2 (09:00→21:08)
[2022-07-06] MEDS: PAXLOVID GT SCH ×2 (09:00→17:00)
[2022-07-06] MEDS: OMEPRAZOLE 20 MG CAPSULE.DR GT SCH (09:00)
[2022-07-06] MEDS: HYDROGEN PEROXIDE 480 ML BOTTLE TP SCH ×2 (09:36→19:48)
[2022-07-06 10:06] VITALS: O2SAT 100
[2022-07-06 11:47] VITALS: BP 136/75; TEMP 97.9; O2SAT 100
[2022-07-06] MEDS: dexaMETHasone SOD PHOSPHATE 10 MG/ML VIAL IV SCH (14:15)
[2022-07-06 20:00] VITALS: BP 132/68; TEMP 98.8; O2SAT 99
[2022-07-06 22:06] VITALS: O2SAT 100
[2022-07-07] MEDS: JEVITY 1.2 CAL 1,000 ML BOTTLE GT PRN ×2 (00:30→18:45)
[2022-07-07] MEDS: IPRATROPIUM NEB FS 0.5 MG/2.5 ML AMPUL.NEB NEB SCH ×4 (01:44→19:39)
[2022-07-07] MEDS: BACLOFEN (10 MG) 10 MG TABLET PEG SCH ×3 (05:30→20:40)
[2022-07-07 08:00] VITALS: BP 120/72; TEMP 98.2; O2SAT 100
[2022-07-07] MEDS: HYDROGEN PEROXIDE 480 ML BOTTLE TP SCH ×2 (09:06→19:39)
[2022-07-07] MEDS: ASPIRIN 81 MG TAB.CHEW GT SCH (09:49)
[2022-07-07] MEDS: DOCUSATE SODIUM LIQ 100 MG/10 ML UDC GT SCH ×2 (09:49→20:40)
[2022-07-07] MEDS: FUROSEMIDE 20 MG TABLET GT SCH (09:51)
[2022-07-07] MEDS: PAXLOVID GT SCH ×2 (09:51→17:54)
[2022-07-07] MEDS: METOPROLOL TARTRATE 25 MG TABLET GT SCH ×2 (09:53→20:40)
[2022-07-07] MEDS: OMEPRAZOLE 20 MG CAPSULE.DR GT SCH (09:53)
[2022-07-07] MEDS: ASCORBIC ACID 500 MG TABLET GT SCH ×2 (09:54→20:40)
[2022-07-07] MEDS: ALPRAZOLAM 0.5 MG TABLET GT SCH ×2 (09:54→20:40)
[2022-07-07] MEDS: VITAMINS A AND D 56.7 GM TUBE TP SCH ×2 (09:54→20:40)
[2022-07-07] MEDS: PROSTAT (PYXIS) 30 ML UDC GT SCH ×2 (09:54→17:54)
[2022-07-07] MEDS: CHLORHEXIDINE GLUCONATE 15 ML UDC MM SCH ×2 (09:54→20:40)
[2022-07-07 10:08] VITALS: O2SAT 100
[2022-07-07 12:00] VITALS: BP 113/57; TEMP 98.5; O2SAT 100
[2022-07-07] MEDS: dexaMETHasone SOD PHOSPHATE 10 MG/ML VIAL IV SCH (14:47)
[2022-07-07 19:28] VITALS: BP 123/74; TEMP 97.5; O2SAT 100
[2022-07-07 22:39] VITALS: O2SAT 100
[2022-07-08 00:16] VITALS: BP 110/69; TEMP 97.9; O2SAT 100
[2022-07-08] MEDS: IPRATROPIUM NEB FS 0.5 MG/2.5 ML AMPUL.NEB NEB SCH ×4 (01:25→20:01)
[2022-07-08] MEDS: ACETAMINOPHEN 650 MG/20 ML UDC- SA PATIENTS-PAIN ONLY GT PRN (05:34)
[2022-07-08] MEDS: BACLOFEN (10 MG) 10 MG TABLET PEG SCH ×3 (05:34→21:07)
[2022-07-08] MEDS: METOPROLOL TARTRATE 25 MG TABLET GT SCH ×2 (09:00→21:07)
[2022-07-08] MEDS: DOCUSATE SODIUM LIQ 100 MG/10 ML UDC GT SCH ×2 (09:00→21:07)
[2022-07-08] MEDS: PROSTAT (PYXIS) 30 ML UDC GT SCH ×2 (09:00→17:47)
[2022-07-08] MEDS: VITAMINS A AND D 56.7 GM TUBE TP SCH ×2 (09:00→21:07)
[2022-07-08] MEDS: CHLORHEXIDINE GLUCONATE 15 ML UDC MM SCH ×2 (09:00→21:07)
[2022-07-08] MEDS: FUROSEMIDE 20 MG TABLET GT SCH (09:00)
[2022-07-08] MEDS: HYDROGEN PEROXIDE 480 ML BOTTLE TP SCH ×2 (09:00→21:39)
[2022-07-08] MEDS: ASCORBIC ACID 500 MG TABLET GT SCH ×2 (09:00→21:07)
[2022-07-08] MEDS: OMEPRAZOLE 20 MG CAPSULE.DR GT SCH (09:00)
[2022-07-08] MEDS: PAXLOVID GT SCH (09:00)
[2022-07-08] MEDS: ASPIRIN 81 MG TAB.CHEW GT SCH (09:00)
[2022-07-08] MEDS: ALPRAZOLAM 0.5 MG TABLET GT SCH ×2 (10:13→21:07)
[2022-07-08 11:08] VITALS: O2SAT 100
[2022-07-08] MEDS: MAGNESIUM HYDROXIDE 30 ML UDC GT PRN (13:34)
[2022-07-08] MEDS: dexaMETHasone SOD PHOSPHATE 10 MG/ML VIAL IV SCH (14:00)
[2022-07-08] MEDS: JEVITY 1.2 CAL 1,000 ML BOTTLE GT PRN (17:48)
[2022-07-08 20:17] VITALS: BP 125/68; TEMP 97.6; O2SAT 100
[2022-07-08 22:09] VITALS: O2SAT 100
[2022-07-09 00:30] VITALS: BP 110/65; TEMP 98; O2SAT 100
[2022-07-09] MEDS: IPRATROPIUM NEB FS 0.5 MG/2.5 ML AMPUL.NEB NEB SCH ×5 (01:30→18:57)
[2022-07-09] MEDS: BACLOFEN (10 MG) 10 MG TABLET PEG SCH ×3 (05:43→21:32)
[2022-07-09] MEDS: ASPIRIN 81 MG TAB.CHEW GT SCH (08:11)
[2022-07-09] MEDS: DOCUSATE SODIUM LIQ 100 MG/10 ML UDC GT SCH ×2 (09:21→21:31)
[2022-07-09] MEDS: FUROSEMIDE 20 MG TABLET GT SCH (09:22)
[2022-07-09] MEDS: METOPROLOL TARTRATE 25 MG TABLET GT SCH ×2 (09:23→21:32)
[2022-07-09] MEDS: PROSTAT (PYXIS) 30 ML UDC GT SCH ×2 (09:25→17:00)
[2022-07-09] MEDS: OMEPRAZOLE 20 MG CAPSULE.DR GT SCH (09:25)
[2022-07-09] MEDS: CHLORHEXIDINE GLUCONATE 15 ML UDC MM SCH ×2 (09:26→21:32)
[2022-07-09] MEDS: VITAMINS A AND D 56.7 GM TUBE TP SCH ×2 (09:26→21:32)
[2022-07-09] MEDS: ALPRAZOLAM 0.5 MG TABLET GT SCH ×2 (09:26→21:32)
[2022-07-09] MEDS: ASCORBIC ACID 500 MG TABLET GT SCH ×2 (09:26→21:32)
[2022-07-09] MEDS: HYDROGEN PEROXIDE 480 ML BOTTLE TP SCH ×2 (09:52→21:05)
[2022-07-09 10:26] VITALS: O2SAT 100
[2022-07-09] MEDS: dexaMETHasone SOD PHOSPHATE 10 MG/ML VIAL IV SCH (13:36)
[2022-07-09] MEDS: JEVITY 1.2 CAL 1,000 ML BOTTLE GT PRN (18:24)
[2022-07-09 19:54] VITALS: BP 116/67; TEMP 98.2; O2SAT 99
[2022-07-09 22:28] VITALS: O2SAT 100
[2022-07-10] MEDS: IPRATROPIUM NEB FS 0.5 MG/2.5 ML AMPUL.NEB NEB SCH ×4 (01:09→19:10)
[2022-07-10] MEDS: BACLOFEN (10 MG) 10 MG TABLET PEG SCH ×3 (05:20→20:25)
[2022-07-10] MEDS: HYDROGEN PEROXIDE 480 ML BOTTLE TP SCH ×2 (08:08→21:16)
[2022-07-10] MEDS: ASPIRIN 81 MG TAB.CHEW GT SCH (09:29)
[2022-07-10] MEDS: DOCUSATE SODIUM LIQ 100 MG/10 ML UDC GT SCH ×2 (09:29→20:25)
[2022-07-10] MEDS: FUROSEMIDE 20 MG TABLET GT SCH (09:29)
[2022-07-10] MEDS: CHLORHEXIDINE GLUCONATE 15 ML UDC MM SCH ×2 (09:30→20:25)
[2022-07-10] MEDS: PROSTAT (PYXIS) 30 ML UDC GT SCH ×2 (09:30→16:53)
[2022-07-10] MEDS: ASCORBIC ACID 500 MG TABLET GT SCH ×2 (09:30→20:25)
[2022-07-10] MEDS: OMEPRAZOLE 20 MG CAPSULE.DR GT SCH (09:30)
[2022-07-10] MEDS: ALPRAZOLAM 0.5 MG TABLET GT SCH ×2 (09:30→20:25)
[2022-07-10] MEDS: METOPROLOL TARTRATE 25 MG TABLET GT SCH ×2 (09:30→20:25)
[2022-07-10] MEDS: VITAMINS A AND D 56.7 GM TUBE TP SCH ×2 (09:30→20:26)
[2022-07-10 10:32] VITALS: O2SAT 100
[2022-07-10] MEDS: dexaMETHasone SOD PHOSPHATE 10 MG/ML VIAL IV SCH (14:00)
[2022-07-10] MEDS: JEVITY 1.2 CAL 1,000 ML BOTTLE GT PRN (15:38)
[2022-07-10 19:55] VITALS: BP 111/63; TEMP 97.8; O2SAT 99
[2022-07-10 22:35] VITALS: O2SAT 100
[2022-07-11] MEDS: IPRATROPIUM NEB FS 0.5 MG/2.5 ML AMPUL.NEB NEB SCH ×4 (01:02→19:30)
[2022-07-11] MEDS: BACLOFEN (10 MG) 10 MG TABLET PEG SCH ×3 (05:41→20:23)
[2022-07-11 07:54] VITALS: BP 118/63; TEMP 97.8; O2SAT 100
[2022-07-11] MEDS: VITAMINS A AND D 56.7 GM TUBE TP SCH ×2 (09:57→20:23)
[2022-07-11] MEDS: DOCUSATE SODIUM LIQ 100 MG/10 ML UDC GT SCH ×2 (09:57→20:14)
[2022-07-11] MEDS: FUROSEMIDE 20 MG TABLET GT SCH (09:57)
[2022-07-11] MEDS: METOPROLOL TARTRATE 25 MG TABLET GT SCH ×2 (09:57→20:15)
[2022-07-11] MEDS: PROSTAT (PYXIS) 30 ML UDC GT SCH ×2 (09:57→17:39)
[2022-07-11] MEDS: ASCORBIC ACID 500 MG TABLET GT SCH ×2 (09:57→20:15)
[2022-07-11] MEDS: ALPRAZOLAM 0.5 MG TABLET GT SCH ×2 (09:57→20:15)
[2022-07-11] MEDS: CHLORHEXIDINE GLUCONATE 15 ML UDC MM SCH ×2 (09:57→20:23)
[2022-07-11] MEDS: OMEPRAZOLE 20 MG CAPSULE.DR GT SCH (09:57)
[2022-07-11] MEDS: ASPIRIN 81 MG TAB.CHEW GT SCH (09:57)
[2022-07-11] MEDS: HYDROGEN PEROXIDE 480 ML BOTTLE TP SCH ×2 (10:10→20:24)
[2022-07-11 10:53] VITALS: O2SAT 100
[2022-07-11 12:38] VITALS: BP 111/65; TEMP 97.8; O2SAT 100
[2022-07-11] MEDS: dexaMETHasone SOD PHOSPHATE 10 MG/ML VIAL IV SCH (14:00)
[2022-07-11] MEDS: JEVITY 1.2 CAL 1,000 ML BOTTLE GT PRN (14:56)
[2022-07-11 19:44] VITALS: BP 96/51; TEMP 98; O2SAT 96
[2022-07-11 23:47] VITALS: O2SAT 97
[2022-07-12] MEDS: IPRATROPIUM NEB FS 0.5 MG/2.5 ML AMPUL.NEB NEB SCH ×4 (01:30→19:30)
[2022-07-12] MEDS: BACLOFEN (10 MG) 10 MG TABLET PEG SCH ×3 (05:07→20:19)
[2022-07-12 07:28] VITALS: BP 112/72; TEMP 97.7; O2SAT 100
[2022-07-12] MEDS: FUROSEMIDE 20 MG TABLET GT SCH (09:26)
[2022-07-12] MEDS: DOCUSATE SODIUM LIQ 100 MG/10 ML UDC GT SCH ×2 (09:26→20:17)
[2022-07-12] MEDS: ASPIRIN 81 MG TAB.CHEW GT SCH (09:26)
[2022-07-12] MEDS: VITAMINS A AND D 56.7 GM TUBE TP SCH ×2 (09:27→21:38)
[2022-07-12] MEDS: CHLORHEXIDINE GLUCONATE 15 ML UDC MM SCH ×2 (09:27→20:19)
[2022-07-12] MEDS: METOPROLOL TARTRATE 25 MG TABLET GT SCH ×2 (09:27→20:18)
[2022-07-12] MEDS: PROSTAT (PYXIS) 30 ML UDC GT SCH ×2 (09:27→16:52)
[2022-07-12] MEDS: ALPRAZOLAM 0.5 MG TABLET GT SCH ×2 (09:27→20:19)
[2022-07-12] MEDS: ASCORBIC ACID 500 MG TABLET GT SCH ×2 (09:27→20:19)
[2022-07-12] MEDS: OMEPRAZOLE 20 MG CAPSULE.DR GT SCH (09:27)
[2022-07-12] MEDS: HYDROGEN PEROXIDE 480 ML BOTTLE TP SCH ×2 (09:52→20:28)
[2022-07-12 10:22] VITALS: O2SAT 100
[2022-07-12 11:56] VITALS: BP 121/76; TEMP 98
[2022-07-12] MEDS: JEVITY 1.2 CAL 1,000 ML BOTTLE GT PRN (12:56)
[2022-07-12] MEDS: dexaMETHasone SOD PHOSPHATE 10 MG/ML VIAL IV SCH (13:07)
[2022-07-12 20:11] VITALS: BP 108/58; TEMP 98.9; O2SAT 97
[2022-07-12 22:54] VITALS: O2SAT 97
[2022-07-13] MEDS: IPRATROPIUM NEB FS 0.5 MG/2.5 ML AMPUL.NEB NEB SCH ×4 (01:30→19:51)
[2022-07-13] MEDS: JEVITY 1.2 CAL 1,000 ML BOTTLE GT PRN ×2 (02:29→14:00)
[2022-07-13] MEDS: BACLOFEN (10 MG) 10 MG TABLET PEG SCH ×3 (04:42→21:34)
[2022-07-13 07:25] VITALS: BP 99/74; TEMP 98.2; O2SAT 100
[2022-07-13] MEDS: HYDROGEN PEROXIDE 480 ML BOTTLE TP SCH ×2 (09:00→19:51)
[2022-07-13] MEDS: ALPRAZOLAM 0.5 MG TABLET GT SCH ×2 (09:00→21:34)
[2022-07-13] MEDS: OMEPRAZOLE 20 MG CAPSULE.DR GT SCH (09:00)
[2022-07-13] MEDS: VITAMINS A AND D 56.7 GM TUBE TP SCH ×2 (09:00→21:34)
[2022-07-13] MEDS: ASPIRIN 81 MG TAB.CHEW GT SCH (09:00)
[2022-07-13] MEDS: PROSTAT (PYXIS) 30 ML UDC GT SCH ×2 (09:00→17:50)
[2022-07-13] MEDS: ASCORBIC ACID 500 MG TABLET GT SCH ×2 (09:00→21:34)
[2022-07-13] MEDS: DOCUSATE SODIUM LIQ 100 MG/10 ML UDC GT SCH ×2 (09:00→21:34)
[2022-07-13] MEDS: FUROSEMIDE 20 MG TABLET GT SCH (09:00)
[2022-07-13] MEDS: CHLORHEXIDINE GLUCONATE 15 ML UDC MM SCH ×2 (09:00→21:34)
[2022-07-13] MEDS: METOPROLOL TARTRATE 25 MG TABLET GT SCH ×2 (09:00→21:34)
[2022-07-13 10:01] VITALS: O2SAT 98
[2022-07-13 13:37] VITALS: BP 116/65; TEMP 98; O2SAT 100
[2022-07-13 20:00] VITALS: BP 128/67; TEMP 98; O2SAT 99
[2022-07-13 22:34] VITALS: O2SAT 100
[2022-07-14] MEDS: IPRATROPIUM NEB FS 0.5 MG/2.5 ML AMPUL.NEB NEB SCH ×4 (01:40→19:43)
[2022-07-14] MEDS: BACLOFEN (10 MG) 10 MG TABLET PEG SCH ×3 (05:27→21:19)
[2022-07-14] MEDS: JEVITY 1.2 CAL 1,000 ML BOTTLE GT PRN (05:27)
[2022-07-14 07:29] VITALS: BP 97/69; TEMP 98.7; O2SAT 97
[2022-07-14] MEDS: METOPROLOL TARTRATE 25 MG TABLET GT SCH ×2 (09:00→21:00)
[2022-07-14] MEDS: HYDROGEN PEROXIDE 480 ML BOTTLE TP SCH ×2 (09:00→19:43)
[2022-07-14] MEDS: FUROSEMIDE 20 MG TABLET GT SCH (09:00)
[2022-07-14] MEDS: ASPIRIN 81 MG TAB.CHEW GT SCH (09:55)
[2022-07-14] MEDS: DOCUSATE SODIUM LIQ 100 MG/10 ML UDC GT SCH ×2 (09:56→21:18)
[2022-07-14] MEDS: PROSTAT (PYXIS) 30 ML UDC GT SCH ×2 (09:57→17:13)
[2022-07-14] MEDS: OMEPRAZOLE 20 MG CAPSULE.DR GT SCH (09:57)
[2022-07-14] MEDS: ASCORBIC ACID 500 MG TABLET GT SCH ×2 (09:57→21:19)
[2022-07-14] MEDS: VITAMINS A AND D 56.7 GM TUBE TP SCH ×2 (09:58→21:19)
[2022-07-14] MEDS: CHLORHEXIDINE GLUCONATE 15 ML UDC MM SCH ×2 (09:58→21:19)
[2022-07-14] MEDS: ALPRAZOLAM 0.5 MG TABLET GT SCH ×2 (09:58→21:19)
[2022-07-14 12:04] VITALS: BP 105/61; TEMP 98.2; O2SAT 100; O2SAT 99
[2022-07-14] MEDS: APIXABAN 5 MG TABLET GT SCH (17:12)
[2022-07-14 19:13] VITALS: BP 96/65; TEMP 98.7; O2SAT 100
[2022-07-14 23:35] VITALS: O2SAT 100
[2022-07-14 23:50] VITALS: BP 107/62; TEMP 98.5; O2SAT 100
[2022-07-15] VITALS (7 sets, daily range): BP systolic 94–109; BP diastolic 46–57; TEMP 99.2–99.9; O2SAT 100
[2022-07-15] MEDS: IPRATROPIUM NEB FS 0.5 MG/2.5 ML AMPUL.NEB NEB SCH ×4 (01:37→18:45)
[2022-07-15] MEDS: BACLOFEN (10 MG) 10 MG TABLET PEG SCH ×3 (05:00→21:44)
[2022-07-15] MEDS: JEVITY 1.2 CAL 1,000 ML BOTTLE GT PRN ×2 (06:08→17:51)
[2022-07-15] MEDS: HYDROGEN PEROXIDE 480 ML BOTTLE TP SCH ×2 (06:50→20:49)
[2022-07-15] MEDS: FUROSEMIDE 20 MG TABLET GT SCH (09:00)
[2022-07-15] MEDS: METOPROLOL TARTRATE 25 MG TABLET GT SCH ×2 (09:00→21:00)
[2022-07-15] MEDS: DOCUSATE SODIUM LIQ 100 MG/10 ML UDC GT SCH ×2 (09:56→21:44)
[2022-07-15] MEDS: ASPIRIN 81 MG TAB.CHEW GT SCH (09:56)
[2022-07-15] MEDS: CHLORHEXIDINE GLUCONATE 15 ML UDC MM SCH ×2 (09:58→21:44)
[2022-07-15] MEDS: PROSTAT (PYXIS) 30 ML UDC GT SCH ×2 (09:58→17:51)
[2022-07-15] MEDS: ASCORBIC ACID 500 MG TABLET GT SCH ×2 (09:58→21:44)
[2022-07-15] MEDS: VITAMINS A AND D 56.7 GM TUBE TP SCH ×2 (09:58→21:44)
[2022-07-15] MEDS: APIXABAN 5 MG TABLET GT SCH ×2 (09:58→17:50)
[2022-07-15] MEDS: OMEPRAZOLE 20 MG CAPSULE.DR GT SCH (09:58)
[2022-07-15] MEDS: ALPRAZOLAM 0.5 MG TABLET GT SCH ×2 (09:58→21:44)
[2022-07-15] MEDS: LANOLIN/MIN OIL/PETROLAT,WHT 3.5 GM TUBE EACHEYE PRN (10:03)
[2022-07-15] MEDS: ACETAMINOPHEN 650 MG/20 ML UDC- SA PATIENTS-PAIN ONLY GT PRN (17:53)
[2022-07-16] MEDS: IPRATROPIUM NEB FS 0.5 MG/2.5 ML AMPUL.NEB NEB SCH ×3 (00:38→13:30)
[2022-07-16] MEDS: ACETAMINOPHEN 650 MG/20 ML UDC- SA PATIENTS-PAIN ONLY GT PRN (02:00)
[2022-07-16] MEDS: BACLOFEN (10 MG) 10 MG TABLET PEG SCH ×3 (05:24→21:36)
[2022-07-16 07:59] VITALS: BP 104/55; TEMP 97.5; O2SAT 100
[2022-07-16] MEDS: METOPROLOL TARTRATE 25 MG TABLET GT SCH ×2 (09:00→21:00)
[2022-07-16] MEDS: ASPIRIN 81 MG TAB.CHEW GT SCH (09:08)
[2022-07-16] MEDS: DOCUSATE SODIUM LIQ 100 MG/10 ML UDC GT SCH ×2 (09:08→21:35)
[2022-07-16] MEDS: APIXABAN 5 MG TABLET GT SCH ×3 (09:10→18:41)
[2022-07-16] MEDS: FUROSEMIDE 20 MG TABLET GT SCH (09:11)
[2022-07-16] MEDS: ASCORBIC ACID 500 MG TABLET GT SCH ×2 (09:17→21:36)
[2022-07-16] MEDS: PROSTAT (PYXIS) 30 ML UDC GT SCH ×2 (09:17→17:30)
[2022-07-16] MEDS: OMEPRAZOLE 20 MG CAPSULE.DR GT SCH (09:17)
[2022-07-16] MEDS: CHLORHEXIDINE GLUCONATE 15 ML UDC MM SCH ×2 (09:18→21:36)
[2022-07-16] MEDS: VITAMINS A AND D 56.7 GM TUBE TP SCH ×2 (09:18→21:36)
[2022-07-16] MEDS: ALPRAZOLAM 0.5 MG TABLET GT SCH ×2 (09:18→21:36)
[2022-07-16] MEDS: HYDROGEN PEROXIDE 480 ML BOTTLE TP SCH ×2 (09:33→19:43)
[2022-07-16 11:07] VITALS: O2SAT 96
[2022-07-16 12:02] VITALS: BP 114/61; TEMP 97.6; O2SAT 100
[2022-07-16 15:28] VITALS: O2SAT 96
[2022-07-16] MEDS: JEVITY 1.2 CAL 1,000 ML BOTTLE GT PRN (17:34)
[2022-07-16 20:05] VITALS: BP 108/75; TEMP 98.9; O2SAT 100
[2022-07-16 22:40] VITALS: O2SAT 100
[2022-07-17] MEDS: BACLOFEN (10 MG) 10 MG TABLET PEG SCH ×3 (05:11→21:13)
[2022-07-17] MEDS: APIXABAN 5 MG TABLET GT SCH ×2 (05:46→17:51)
[2022-07-17 07:19] VITALS: BP 112/68; TEMP 98.2; O2SAT 100
[2022-07-17] MEDS: DOCUSATE SODIUM LIQ 100 MG/10 ML UDC GT SCH ×2 (09:00→21:12)
[2022-07-17] MEDS: ASCORBIC ACID 500 MG TABLET GT SCH ×2 (09:00→21:13)
[2022-07-17] MEDS: METOPROLOL TARTRATE 25 MG TABLET GT SCH ×2 (09:00→21:00)
[2022-07-17] MEDS: ASPIRIN 81 MG TAB.CHEW GT SCH (09:00)
[2022-07-17] MEDS: PROSTAT (PYXIS) 30 ML UDC GT SCH ×2 (09:00→16:30)
[2022-07-17] MEDS: FUROSEMIDE 20 MG TABLET GT SCH (09:00)
[2022-07-17] MEDS: VITAMINS A AND D 56.7 GM TUBE TP SCH ×2 (09:00→21:13)
[2022-07-17] MEDS: CHLORHEXIDINE GLUCONATE 15 ML UDC MM SCH ×2 (09:00→21:13)
[2022-07-17] MEDS: OMEPRAZOLE 20 MG CAPSULE.DR GT SCH (09:00)
[2022-07-17] MEDS: ALPRAZOLAM 0.5 MG TABLET GT SCH ×2 (09:00→21:13)
[2022-07-17] MEDS: HYDROGEN PEROXIDE 480 ML BOTTLE TP SCH ×2 (09:15→19:43)
[2022-07-17 10:24] VITALS: O2SAT 99
[2022-07-17 12:12] VITALS: BP 98/63; TEMP 98.4; O2SAT 100
[2022-07-17 19:54] VITALS: BP 106/57; TEMP 98.8; O2SAT 100
[2022-07-17 21:42] VITALS: O2SAT 100
[2022-07-17 22:05] VITALS: O2SAT 100
[2022-07-18 00:35] VITALS: BP 109/60; TEMP 98.8; O2SAT 100
[2022-07-18] MEDS: BACLOFEN (10 MG) 10 MG TABLET PEG SCH ×3 (05:31→20:07)
[2022-07-18] MEDS: JEVITY 1.2 CAL 1,000 ML BOTTLE GT PRN (05:32)
[2022-07-18] MEDS: APIXABAN 5 MG TABLET GT SCH ×2 (05:32→17:42)
[2022-07-18 07:27] VITALS: BP 109/56; TEMP 98.4; O2SAT 96
[2022-07-18] MEDS: METOPROLOL TARTRATE 25 MG TABLET GT SCH ×2 (09:00→20:07)
[2022-07-18] MEDS: HYDROGEN PEROXIDE 480 ML BOTTLE TP SCH ×2 (09:20→20:22)
[2022-07-18] MEDS: ASPIRIN 81 MG TAB.CHEW GT SCH (09:55)
[2022-07-18] MEDS: FUROSEMIDE 20 MG TABLET GT SCH (09:55)
[2022-07-18] MEDS: OMEPRAZOLE 20 MG CAPSULE.DR GT SCH (09:55)
[2022-07-18] MEDS: DOCUSATE SODIUM LIQ 100 MG/10 ML UDC GT SCH ×2 (09:55→20:07)
[2022-07-18] MEDS: ASCORBIC ACID 500 MG TABLET GT SCH ×2 (09:55→20:07)
[2022-07-18] MEDS: PROSTAT (PYXIS) 30 ML UDC GT SCH ×2 (09:55→17:42)
[2022-07-18] MEDS: VITAMINS A AND D 56.7 GM TUBE TP SCH ×2 (09:56→20:08)
[2022-07-18] MEDS: CHLORHEXIDINE GLUCONATE 15 ML UDC MM SCH ×2 (09:56→20:07)
[2022-07-18] MEDS: ALPRAZOLAM 0.5 MG TABLET GT SCH ×2 (09:56→20:07)
[2022-07-18 10:38] VITALS: O2SAT 100
[2022-07-18 11:52] VITALS: BP 107/73; TEMP 98.4; O2SAT 100
[2022-07-18] MEDS: ACETAMINOPHEN 650 MG/20 ML UDC- SA PATIENTS-FEVER ONLY GT PRN (20:08)
[2022-07-18 20:21] VITALS: BP 102/71; TEMP 102.4; O2SAT 100
[2022-07-18 23:10] VITALS: O2SAT 100
[2022-07-19] MEDS: BACLOFEN (10 MG) 10 MG TABLET PEG SCH ×3 (05:40→21:39)
[2022-07-19] MEDS: APIXABAN 5 MG TABLET GT SCH ×2 (05:40→17:44)
[2022-07-19] MEDS: METOPROLOL TARTRATE 25 MG TABLET GT SCH ×2 (09:00→21:38)
[2022-07-19] MEDS: ASCORBIC ACID 500 MG TABLET GT SCH ×2 (09:13→21:38)
[2022-07-19] MEDS: DOCUSATE SODIUM LIQ 100 MG/10 ML UDC GT SCH ×2 (09:13→21:38)
[2022-07-19] MEDS: ASPIRIN 81 MG TAB.CHEW GT SCH (09:13)
[2022-07-19] MEDS: OMEPRAZOLE 20 MG CAPSULE.DR GT SCH (09:13)
[2022-07-19] MEDS: FUROSEMIDE 20 MG TABLET GT SCH (09:13)
[2022-07-19] MEDS: PROSTAT (PYXIS) 30 ML UDC GT SCH ×2 (09:13→16:04)
[2022-07-19] MEDS: CHLORHEXIDINE GLUCONATE 15 ML UDC MM SCH ×2 (09:14→21:39)
[2022-07-19] MEDS: VITAMINS A AND D 56.7 GM TUBE TP SCH ×2 (09:14→21:39)
[2022-07-19] MEDS: ALPRAZOLAM 0.5 MG TABLET GT SCH ×2 (09:14→21:38)
[2022-07-19] MEDS: HYDROGEN PEROXIDE 480 ML BOTTLE TP SCH ×2 (09:23→20:35)
[2022-07-19 10:32] VITALS: O2SAT 100
[2022-07-19] MEDS: JEVITY 1.2 CAL 1,000 ML BOTTLE GT PRN (12:44)
[2022-07-19] MEDS: LANOLIN/MIN OIL/PETROLAT,WHT 3.5 GM TUBE EACHEYE PRN (12:59)
[2022-07-19 20:00] VITALS: BP 131/68; TEMP 98; O2SAT 99
[2022-07-20 00:15] VITALS: O2SAT 99
[2022-07-20] MEDS: BACLOFEN (10 MG) 10 MG TABLET PEG SCH ×3 (05:21→21:22)
[2022-07-20] MEDS: APIXABAN 5 MG TABLET GT SCH ×2 (05:48→17:49)
[2022-07-20 07:49] VITALS: BP 135/64; TEMP 98.2; O2SAT 99
[2022-07-20] MEDS: HYDROGEN PEROXIDE 480 ML BOTTLE TP SCH ×2 (09:19→19:59)
[2022-07-20] MEDS: OMEPRAZOLE 20 MG CAPSULE.DR GT SCH (09:50)
[2022-07-20] MEDS: DOCUSATE SODIUM LIQ 100 MG/10 ML UDC GT SCH ×2 (09:50→21:20)
[2022-07-20] MEDS: METOPROLOL TARTRATE 25 MG TABLET GT SCH ×2 (09:50→21:00)
[2022-07-20] MEDS: ASCORBIC ACID 500 MG TABLET GT SCH ×2 (09:50→21:21)
[2022-07-20] MEDS: FUROSEMIDE 20 MG TABLET GT SCH (09:50)
[2022-07-20] MEDS: ASPIRIN 81 MG TAB.CHEW GT SCH (09:50)
[2022-07-20] MEDS: PROSTAT (PYXIS) 30 ML UDC GT SCH ×2 (09:50→16:32)
[2022-07-20] MEDS: VITAMINS A AND D 56.7 GM TUBE TP SCH ×2 (09:51→21:22)
[2022-07-20] MEDS: ALPRAZOLAM 0.5 MG TABLET GT SCH ×2 (09:51→21:21)
[2022-07-20] MEDS: CHLORHEXIDINE GLUCONATE 15 ML UDC MM SCH ×2 (09:51→21:21)
[2022-07-20 11:02] VITALS: O2SAT 99
[2022-07-20 12:14] VITALS: BP 137/70; TEMP 98.1; O2SAT 99
[2022-07-20] MEDS: JEVITY 1.2 CAL 1,000 ML BOTTLE GT PRN (17:49)
[2022-07-20 20:09] VITALS: BP 100/46; TEMP 98.4; O2SAT 100
[2022-07-20] MEDS: TOBRAMYCIN/DEXAMETH OPHTH DORPS 2.5 ML BOTTLE EACHEYE SCH (23:10)
[2022-07-20 23:43] VITALS: O2SAT 99
[2022-07-21] MEDS: TOBRAMYCIN/DEXAMETH OPHTH DORPS 2.5 ML BOTTLE EACHEYE SCH ×6 (01:00→20:44)
[2022-07-21] MEDS: BACLOFEN (10 MG) 10 MG TABLET PEG SCH ×3 (05:15→20:45)
[2022-07-21] MEDS: APIXABAN 5 MG TABLET GT SCH ×2 (05:56→17:39)
[2022-07-21 07:44] VITALS: BP 140/78; TEMP 98.8; O2SAT 99
[2022-07-21] MEDS: VITAMINS A AND D 56.7 GM TUBE TP SCH ×2 (09:00→20:45)
[2022-07-21] MEDS: HYDROGEN PEROXIDE 480 ML BOTTLE TP SCH ×2 (09:00→19:44)
[2022-07-21] MEDS: METOPROLOL TARTRATE 25 MG TABLET GT SCH ×2 (09:59→20:45)
[2022-07-21] MEDS: FUROSEMIDE 20 MG TABLET GT SCH (09:59)
[2022-07-21] MEDS: OMEPRAZOLE 20 MG CAPSULE.DR GT SCH (09:59)
[2022-07-21] MEDS: ASCORBIC ACID 500 MG TABLET GT SCH ×2 (09:59→20:45)
[2022-07-21] MEDS: ALPRAZOLAM 0.5 MG TABLET GT SCH ×2 (09:59→20:45)
[2022-07-21] MEDS: ASPIRIN 81 MG TAB.CHEW GT SCH (09:59)
[2022-07-21] MEDS: DOCUSATE SODIUM LIQ 100 MG/10 ML UDC GT SCH ×2 (09:59→20:44)
[2022-07-21] MEDS: PROSTAT (PYXIS) 30 ML UDC GT SCH ×2 (09:59→17:39)
[2022-07-21] MEDS: CHLORHEXIDINE GLUCONATE 15 ML UDC MM SCH ×2 (09:59→20:45)
[2022-07-21 12:12] VITALS: BP 132/76; TEMP 98.6; O2SAT 98
[2022-07-21 14:15] VITALS: O2SAT 100
[2022-07-21 20:07] VITALS: BP 114/64; TEMP 99; O2SAT 100
[2022-07-21 22:45] VITALS: O2SAT 100
[2022-07-22] MEDS: TOBRAMYCIN/DEXAMETH OPHTH DORPS 2.5 ML BOTTLE EACHEYE SCH ×6 (00:57→20:39)
[2022-07-22] MEDS: BACLOFEN (10 MG) 10 MG TABLET PEG SCH ×3 (05:21→20:41)
[2022-07-22] MEDS: APIXABAN 5 MG TABLET GT SCH ×2 (05:38→17:33)
[2022-07-22] MEDS: JEVITY 1.2 CAL 1,000 ML BOTTLE GT PRN ×2 (05:58→19:06)
[2022-07-22 08:26] VITALS: BP 106/86; TEMP 99.5; O2SAT 100
[2022-07-22] MEDS: ASPIRIN 81 MG TAB.CHEW GT SCH (09:24)
[2022-07-22] MEDS: DOCUSATE SODIUM LIQ 100 MG/10 ML UDC GT SCH ×2 (09:24→20:40)
[2022-07-22] MEDS: FUROSEMIDE 20 MG TABLET GT SCH (09:24)
[2022-07-22] MEDS: PROSTAT (PYXIS) 30 ML UDC GT SCH ×2 (09:25→17:31)
[2022-07-22] MEDS: METOPROLOL TARTRATE 25 MG TABLET GT SCH ×2 (09:25→20:40)
[2022-07-22] MEDS: ASCORBIC ACID 500 MG TABLET GT SCH ×2 (09:25→20:41)
[2022-07-22] MEDS: VITAMINS A AND D 56.7 GM TUBE TP SCH ×2 (09:25→20:41)
[2022-07-22] MEDS: ALPRAZOLAM 0.5 MG TABLET GT SCH ×2 (09:25→20:41)
[2022-07-22] MEDS: OMEPRAZOLE 20 MG CAPSULE.DR GT SCH (09:25)
[2022-07-22] MEDS: CHLORHEXIDINE GLUCONATE 15 ML UDC MM SCH ×2 (09:25→20:41)
[2022-07-22] MEDS: HYDROGEN PEROXIDE 480 ML BOTTLE TP SCH ×2 (09:43→20:14)
[2022-07-22 10:02] VITALS: O2SAT 99
[2022-07-22 11:21] VITALS: O2SAT 99
[2022-07-22] MEDS ORDERED: IPRATROPIUM NEB FS 0.5 MG/2.5 ML AMPUL.NEB NEB PRN (15:00)
[2022-07-22] MEDS ORDERED: ALBUTEROL FS 2.5 MG/3 ML VIAL.NEB NEB PRN (15:00)
[2022-07-22 15:05] LABS: BASOPHILS # (AUTO) 0.1 K/uL (0.0-0.2); BASOPHILS % (AUTO) 0.3 % (0.0-2.0); EOSINOPHILS % (AUTO) 0.1 % (0.0-6.0); HEMATOCRIT 29 % (39-51); HEMOGLOBIN 8.8 g/dL (13.5-17.5); LYMPHOCYTES # (AUTO) 1.1 K/uL (0.8-4.8); LYMPHOCYTES % (AUTO) 5.7 % (20.0-44.0); MEAN CORPUSCULAR HEMOGLOBIN 28 PG (26.0-33.0); MEAN CORPUSCULAR HGB CONC 31 g/dl (31.0-36.0); MEAN CORPUSCULAR VOLUME 90 fL (80-96); MONOCYTES # (AUTO) 1.8 K/uL (0.1-1.30); MONOCYTES % (AUTO) 9.7 % (2.0-12.0); NEUTROPHILS # (AUTO) 15.7 K/uL (1.8-8.9); NEUTROPHILS % (AUTO) 84.2 % (43.0-81.0); PLATELET COUNT (AUTO) 299 K/uL (150-450); RED BLOOD CELL COUNT(AUTO) 3.19 MIL/uL (4.5-6.0); RED CELL DISTRIBUTION WIDTH 17.1 % (11.5-15.0); WHITE BLOOD COUNT (AUTO) 18.7 K/uL (4.3-11.0)
[2022-07-22 15:22] VITALS: O2SAT 99
[2022-07-22 19:53] VITALS: BP 93/56; TEMP 99.1; O2SAT 98
[2022-07-22 19:56] LABS: APPEARANCE,URINE SLIGHTLY CLOUDY (CLEAR); BILIRUBIN,URINE 1+ (NEGATIVE); BLOOD, URINE NEGATIVE Ery/uL (NEGATIVE); COLOR,URINE YELLOW (YELLOW); KETONES,URINE NEGATIVE (NEGATIVE); LEUKOCYTE ESTERASE ,URINE 1+ (NEGATIVE); NITRITE, URINE POSITIVE (NEGATIVE); PROTEIN,URINE TRACE mg/dl (NEGATIVE); UGLUCOSE NEGATIVE (NEGATIVE); UROBILINOGEN,URINE >=8.0 EU/dL (0.2)
[2022-07-22] MEDS ORDERED: LEVOFLOXACIN (250MG) 250 MG TABLET GT SCH (20:00)
[2022-07-22 20:02] LABS: ADD URINE CULTURE YES; BACTERIA,URINE 3+ /HPF (None Seen); RBC,URINE 0-2 /HPF (0-2); SQUAMOUS EPITHELIAL CELL,UR 0-2 /HPF (None Seen)
[2022-07-22] MEDS: ALBUTEROL FS 2.5 MG/3 ML VIAL.NEB NEB SCH (20:14)
[2022-07-22] MEDS: IPRATROPIUM NEB FS 0.5 MG/2.5 ML AMPUL.NEB NEB SCH (20:14)
[2022-07-22 23:07] LABS: CALCIUM, SERUM 8.2 mg/dL (8.5-10.1); CREATININE 0.8 mg/dL (0.6-1.3); POTASSIUM 4.2 mmol/L (3.5-5.1)
[2022-07-22 23:56] VITALS: O2SAT 100
[2022-07-23] MEDS ORDERED: PIPERACILLIN /TAZOBACTAM 2.25 G VIAL IV ONE ×4 (00:10→05:48)
[2022-07-23] MEDS: TOBRAMYCIN/DEXAMETH OPHTH DORPS 2.5 ML BOTTLE EACHEYE SCH ×6 (01:00→21:12)
[2022-07-23] MEDS: ALBUTEROL FS 2.5 MG/3 ML VIAL.NEB NEB SCH ×4 (01:22→20:23)
[2022-07-23] MEDS: IPRATROPIUM NEB FS 0.5 MG/2.5 ML AMPUL.NEB NEB SCH ×4 (01:22→20:23)
[2022-07-23] MEDS: BACLOFEN (10 MG) 10 MG TABLET PEG SCH ×3 (05:06→21:13)
[2022-07-23] MEDS: APIXABAN 5 MG TABLET GT SCH ×2 (05:50→17:44)
[2022-07-23 07:41] VITALS: BP 107/67; TEMP 98.3; O2SAT 100
[2022-07-23 07:55] VITALS: BP 107/67; TEMP 98.3; O2SAT 100
[2022-07-23] MEDS: CHLORHEXIDINE GLUCONATE 15 ML UDC MM SCH ×2 (08:29→21:13)
[2022-07-23] MEDS: ASPIRIN 81 MG TAB.CHEW GT SCH (08:29)
[2022-07-23] MEDS: DOCUSATE SODIUM LIQ 100 MG/10 ML UDC GT SCH ×2 (08:29→21:13)
[2022-07-23] MEDS: FUROSEMIDE 20 MG TABLET GT SCH (08:29)
[2022-07-23] MEDS: METOPROLOL TARTRATE 25 MG TABLET GT SCH ×2 (08:29→21:13)
[2022-07-23] MEDS: PROSTAT (PYXIS) 30 ML UDC GT SCH ×2 (08:29→17:41)
[2022-07-23] MEDS: ALPRAZOLAM 0.5 MG TABLET GT SCH ×2 (08:29→21:13)
[2022-07-23] MEDS: ASCORBIC ACID 500 MG TABLET GT SCH ×2 (08:29→21:13)
[2022-07-23] MEDS: OMEPRAZOLE 20 MG CAPSULE.DR GT SCH (08:29)
[2022-07-23] MEDS: VITAMINS A AND D 56.7 GM TUBE TP SCH ×2 (08:30→21:13)
[2022-07-23] MEDS: HYDROGEN PEROXIDE 480 ML BOTTLE TP SCH ×2 (09:40→20:23)
[2022-07-23 10:11] VITALS: O2SAT 100
[2022-07-23] MEDS: ZOSYN IVPB 4.5 G in IV D5W 50ml IV SCH ×3 (12:08→23:34)
[2022-07-23 13:32] VITALS: BP 117/79; TEMP 98; O2SAT 99
[2022-07-23] MEDS: VANCOMYCIN 1 GM in IV D5W 250ml IV SCH (14:54)
[2022-07-23 19:50] VITALS: BP 118/64; TEMP 98.8; O2SAT 100
[2022-07-23 22:05] VITALS: O2SAT 100
[2022-07-24] MEDS: TOBRAMYCIN/DEXAMETH OPHTH DORPS 2.5 ML BOTTLE EACHEYE SCH ×6 (00:25→20:35)
[2022-07-24] MEDS: ALBUTEROL FS 2.5 MG/3 ML VIAL.NEB NEB SCH ×4 (01:19→20:02)
[2022-07-24] MEDS: IPRATROPIUM NEB FS 0.5 MG/2.5 ML AMPUL.NEB NEB SCH ×4 (01:19→20:02)
[2022-07-24] MEDS: VANCOMYCIN 1 GM in IV D5W 250ml IV SCH ×2 (01:21→14:00)
[2022-07-24] MEDS: HYDROCODONE/APAP 5/325MG TABLET GT PRN ×2 (02:42→17:13)
[2022-07-24] MEDS: LORAZEPAM 1 MG TABLET GT PRN (04:49)
[2022-07-24] MEDS: BACLOFEN (10 MG) 10 MG TABLET PEG SCH ×3 (05:04→20:37)
[2022-07-24] MEDS: ZOSYN IVPB 4.5 G in IV D5W 50ml IV SCH ×3 (05:32→18:35)
[2022-07-24] MEDS: APIXABAN 5 MG TABLET GT SCH ×2 (05:59→18:46)
[2022-07-24 07:51] VITALS: BP 108/62; TEMP 99.8; O2SAT 98
[2022-07-24] MEDS: HYDROGEN PEROXIDE 480 ML BOTTLE TP SCH ×2 (08:10→21:45)
[2022-07-24] MEDS: ASPIRIN 81 MG TAB.CHEW GT SCH (09:00)
[2022-07-24] MEDS: PROSTAT (PYXIS) 30 ML UDC GT SCH ×2 (09:00→17:15)
[2022-07-24] MEDS: ALPRAZOLAM 0.5 MG TABLET GT SCH ×2 (09:00→20:36)
[2022-07-24] MEDS: CHLORHEXIDINE GLUCONATE 15 ML UDC MM SCH ×2 (09:00→20:36)
[2022-07-24] MEDS: ASCORBIC ACID 500 MG TABLET GT SCH ×2 (09:00→20:36)
[2022-07-24] MEDS: OMEPRAZOLE 20 MG CAPSULE.DR GT SCH (09:00)
[2022-07-24] MEDS: METOPROLOL TARTRATE 25 MG TABLET GT SCH ×2 (09:00→20:35)
[2022-07-24] MEDS: DOCUSATE SODIUM LIQ 100 MG/10 ML UDC GT SCH ×2 (09:00→20:35)
[2022-07-24] MEDS: VITAMINS A AND D 56.7 GM TUBE TP SCH ×2 (09:00→20:37)
[2022-07-24] MEDS: FUROSEMIDE 20 MG TABLET GT SCH (09:00)
[2022-07-24 10:34] VITALS: O2SAT 100
[2022-07-24 13:13] VITALS: BP 102/68; TEMP 98.7; O2SAT 97
[2022-07-24] MEDS: JEVITY 1.2 CAL 1,000 ML BOTTLE GT PRN (16:18)
[2022-07-24 20:52] VITALS: BP 99/66; TEMP 98.1; O2SAT 98
[2022-07-24 21:12] VITALS: O2SAT 100
[2022-07-24 22:20] VITALS: O2SAT 100
[2022-07-25] MEDS: ZOSYN IVPB 4.5 G in IV D5W 50ml IV SCH ×4 (00:03→18:00)
[2022-07-25] MEDS: TOBRAMYCIN/DEXAMETH OPHTH DORPS 2.5 ML BOTTLE EACHEYE SCH ×5 (00:03→17:17)
[2022-07-25] MEDS: ALBUTEROL FS 2.5 MG/3 ML VIAL.NEB NEB SCH ×4 (01:50→20:12)
[2022-07-25] MEDS: IPRATROPIUM NEB FS 0.5 MG/2.5 ML AMPUL.NEB NEB SCH ×4 (01:50→20:12)
[2022-07-25] MEDS: VANCOMYCIN HCL 0.75 GM in IV D5W 250 ML IV SCH ×2 (02:12→14:42)
[2022-07-25] MEDS: BACLOFEN (10 MG) 10 MG TABLET PEG SCH ×3 (05:20→20:31)
[2022-07-25] MEDS: APIXABAN 5 MG TABLET GT SCH ×2 (06:19→19:27)
[2022-07-25 08:37] VITALS: BP 127/66; TEMP 98.8; O2SAT 100
[2022-07-25] MEDS: CHLORHEXIDINE GLUCONATE 15 ML UDC MM SCH ×2 (09:00→20:31)
[2022-07-25] MEDS: OMEPRAZOLE 20 MG CAPSULE.DR GT SCH (09:00)
[2022-07-25] MEDS: ASCORBIC ACID 500 MG TABLET GT SCH ×2 (09:00→20:31)
[2022-07-25] MEDS: PROSTAT (PYXIS) 30 ML UDC GT SCH ×2 (09:00→17:17)
[2022-07-25] MEDS: FUROSEMIDE 20 MG TABLET GT SCH (09:00)
[2022-07-25] MEDS: ASPIRIN 81 MG TAB.CHEW GT SCH (09:00)
[2022-07-25] MEDS: ALPRAZOLAM 0.5 MG TABLET GT SCH ×2 (09:00→20:31)
[2022-07-25] MEDS: VITAMINS A AND D 56.7 GM TUBE TP SCH ×2 (09:00→20:31)
[2022-07-25] MEDS: METOPROLOL TARTRATE 25 MG TABLET GT SCH ×2 (09:00→20:31)
[2022-07-25] MEDS: DOCUSATE SODIUM LIQ 100 MG/10 ML UDC GT SCH ×2 (09:00→20:29)
[2022-07-25] MEDS: HYDROGEN PEROXIDE 480 ML BOTTLE TP SCH ×2 (12:55→20:12)
[2022-07-25 17:26] VITALS: O2SAT 100
[2022-07-25 20:03] VITALS: BP 138/74; TEMP 98.3; O2SAT 100
[2022-07-25 20:14] VITALS: O2SAT 99
[2022-07-25 22:57] VITALS: O2SAT 100
[2022-07-26] MEDS: VANCOMYCIN HCL 0.75 GM in IV D5W 250 ML IV SCH ×2 (01:14→14:36)
[2022-07-26] MEDS: ALBUTEROL FS 2.5 MG/3 ML VIAL.NEB NEB SCH ×4 (02:02→20:01)
[2022-07-26] MEDS: IPRATROPIUM NEB FS 0.5 MG/2.5 ML AMPUL.NEB NEB SCH ×4 (02:02→20:01)
[2022-07-26] MEDS: ZOSYN IVPB 4.5 G in IV D5W 50ml IV SCH ×5 (05:41→17:38)
[2022-07-26] MEDS: BACLOFEN (10 MG) 10 MG TABLET PEG SCH ×3 (05:41→21:43)
[2022-07-26] MEDS: APIXABAN 5 MG TABLET GT SCH ×2 (05:41→17:40)
[2022-07-26] MEDS: JEVITY 1.2 CAL 1,000 ML BOTTLE GT PRN (05:46)
[2022-07-26 07:12] VITALS: BP 120/73; TEMP 99.5; O2SAT 100
[2022-07-26] MEDS: ASCORBIC ACID 500 MG TABLET GT SCH ×2 (08:55→21:43)
[2022-07-26] MEDS: DOCUSATE SODIUM LIQ 100 MG/10 ML UDC GT SCH ×2 (08:55→21:42)
[2022-07-26] MEDS: CHLORHEXIDINE GLUCONATE 15 ML UDC MM SCH ×2 (08:55→21:43)
[2022-07-26] MEDS: ALPRAZOLAM 0.5 MG TABLET GT SCH ×2 (08:55→21:43)
[2022-07-26] MEDS: VITAMINS A AND D 56.7 GM TUBE TP SCH ×2 (08:55→21:43)
[2022-07-26] MEDS: ASPIRIN 81 MG TAB.CHEW GT SCH (08:55)
[2022-07-26] MEDS: METOPROLOL TARTRATE 25 MG TABLET GT SCH ×2 (08:55→21:00)
[2022-07-26] MEDS: OMEPRAZOLE 20 MG CAPSULE.DR GT SCH (08:55)
[2022-07-26] MEDS: FUROSEMIDE 20 MG TABLET GT SCH (08:55)
[2022-07-26] MEDS: PROSTAT (PYXIS) 30 ML UDC GT SCH ×2 (08:55→17:39)
[2022-07-26] MEDS: HYDROGEN PEROXIDE 480 ML BOTTLE TP SCH ×2 (09:20→20:01)
[2022-07-26] MEDS ORDERED: FUROSEMIDE 20 MG/2 ML VIAL IV SCH (09:30)
[2022-07-26 10:15] VITALS: O2SAT 100
[2022-07-26 10:56] VITALS: BP 125/76; TEMP 99.1; O2SAT 99
[2022-07-26] MEDS ORDERED: JEVITY 1.2 CAL 1,000 ML BOTTLE GT PRN (18:11)
[2022-07-26 20:02] VITALS: O2SAT 100
[2022-07-26 20:12] VITALS: BP 104/66; TEMP 98.8; O2SAT 97
[2022-07-26 23:53] VITALS: O2SAT 100
[2022-07-27] MEDS: ZOSYN IVPB 4.5 G in IV D5W 50ml IV SCH ×4 (00:12→18:36)
[2022-07-27] MEDS: ALBUTEROL FS 2.5 MG/3 ML VIAL.NEB NEB SCH ×4 (01:55→19:43)
[2022-07-27] MEDS: IPRATROPIUM NEB FS 0.5 MG/2.5 ML AMPUL.NEB NEB SCH ×4 (01:55→19:43)
[2022-07-27] MEDS: APIXABAN 5 MG TABLET GT SCH ×2 (05:44→17:30)
[2022-07-27] MEDS: BACLOFEN (10 MG) 10 MG TABLET PEG SCH ×3 (05:44→21:31)
[2022-07-27 07:58] VITALS: BP 101/56; TEMP 98; O2SAT 100
[2022-07-27 07:59] LABS: CALCIUM, SERUM 8.2 mg/dL (8.5-10.1); CREATININE 1.3 mg/dL (0.6-1.3); POTASSIUM 4.2 mmol/L (3.5-5.1)
[2022-07-27] MEDS: DOCUSATE SODIUM LIQ 100 MG/10 ML UDC GT SCH ×2 (08:45→21:30)
[2022-07-27] MEDS: FUROSEMIDE 20 MG TABLET GT SCH (08:45)
[2022-07-27] MEDS: ASPIRIN 81 MG TAB.CHEW GT SCH (08:45)
[2022-07-27] MEDS: OMEPRAZOLE 20 MG CAPSULE.DR GT SCH (08:46)
[2022-07-27] MEDS: ALPRAZOLAM 0.5 MG TABLET GT SCH ×2 (08:46→21:30)
[2022-07-27] MEDS: METOPROLOL TARTRATE 25 MG TABLET GT SCH ×2 (08:46→21:00)
[2022-07-27] MEDS: VITAMINS A AND D 56.7 GM TUBE TP SCH ×2 (08:46→21:31)
[2022-07-27] MEDS: CHLORHEXIDINE GLUCONATE 15 ML UDC MM SCH ×2 (08:46→21:31)
[2022-07-27] MEDS: ASCORBIC ACID 500 MG TABLET GT SCH ×2 (08:46→21:30)
[2022-07-27] MEDS: PROSTAT (PYXIS) 30 ML UDC GT SCH ×2 (08:46→17:02)
[2022-07-27] MEDS: HYDROGEN PEROXIDE 480 ML BOTTLE TP SCH ×2 (09:55→19:43)
[2022-07-27 12:06] VITALS: BP 118/58; TEMP 98.1; O2SAT 99
[2022-07-27 16:16] VITALS: O2SAT 100
[2022-07-27] MEDS: JEVITY 1.2 CAL 1,000 ML BOTTLE GT PRN (16:54)
[2022-07-27 19:33] VITALS: BP 102/66; TEMP 97.4; O2SAT 100
[2022-07-27 22:37] VITALS: O2SAT 100
[2022-07-28] VITALS (8 sets, daily range): BP systolic 98–140; BP diastolic 62–76; TEMP 97.7–99; O2SAT 99–100
[2022-07-28] MEDS: ALBUTEROL FS 2.5 MG/3 ML VIAL.NEB NEB SCH ×4 (01:30→19:47)
[2022-07-28] MEDS: IPRATROPIUM NEB FS 0.5 MG/2.5 ML AMPUL.NEB NEB SCH ×4 (01:30→19:47)
[2022-07-28] MEDS: BACLOFEN (10 MG) 10 MG TABLET PEG SCH ×3 (05:28→21:15)
[2022-07-28] MEDS: APIXABAN 5 MG TABLET GT SCH ×2 (05:32→17:31)
[2022-07-28] MEDS: ZOSYN IVPB 4.5 G in IV D5W 50ml IV SCH ×5 (05:40→18:37)
[2022-07-28] MEDS: FUROSEMIDE 20 MG TABLET GT SCH (08:21)
[2022-07-28] MEDS: DOCUSATE SODIUM LIQ 100 MG/10 ML UDC GT SCH ×2 (08:21→21:14)
[2022-07-28] MEDS: ASPIRIN 81 MG TAB.CHEW GT SCH (08:21)
[2022-07-28] MEDS: PROSTAT (PYXIS) 30 ML UDC GT SCH ×2 (08:22→17:02)
[2022-07-28] MEDS: CHLORHEXIDINE GLUCONATE 15 ML UDC MM SCH ×2 (08:22→21:14)
[2022-07-28] MEDS: VITAMINS A AND D 56.7 GM TUBE TP SCH ×2 (08:22→21:15)
[2022-07-28] MEDS: METOPROLOL TARTRATE 25 MG TABLET GT SCH ×2 (08:22→21:00)
[2022-07-28] MEDS: ALPRAZOLAM 0.5 MG TABLET GT SCH ×2 (08:22→21:14)
[2022-07-28] MEDS: ASCORBIC ACID 500 MG TABLET GT SCH ×2 (08:22→21:14)
[2022-07-28] MEDS: OMEPRAZOLE 20 MG CAPSULE.DR GT SCH (08:22)
[2022-07-28] MEDS: HYDROGEN PEROXIDE 480 ML BOTTLE TP SCH ×2 (08:25→19:47)
[2022-07-28] MEDS: JEVITY 1.2 CAL 1,000 ML BOTTLE GT PRN (11:56)
[2022-07-28] MEDS: VANCOMYCIN 1 GM in IV D5W 250ml IV SCH (21:09)
[2022-07-29] VITALS (7 sets, daily range): BP systolic 84–113; BP diastolic 54–78; TEMP 98.4–99; O2SAT 97–100
[2022-07-29] MEDS: ALBUTEROL FS 2.5 MG/3 ML VIAL.NEB NEB SCH ×4 (01:46→18:58)
[2022-07-29] MEDS: IPRATROPIUM NEB FS 0.5 MG/2.5 ML AMPUL.NEB NEB SCH ×4 (01:46→18:58)
[2022-07-29] MEDS: BACLOFEN (10 MG) 10 MG TABLET PEG SCH ×3 (05:21→20:31)
[2022-07-29] MEDS: JEVITY 1.2 CAL 1,000 ML BOTTLE GT PRN (05:21)
[2022-07-29] MEDS: APIXABAN 5 MG TABLET GT SCH ×2 (05:32→18:04)
[2022-07-29] MEDS: ZOSYN IVPB 4.5 G in IV D5W 50ml IV SCH ×5 (05:41→18:04)
[2022-07-29] MEDS: HYDROGEN PEROXIDE 480 ML BOTTLE TP SCH ×2 (08:07→20:35)
[2022-07-29] MEDS: METOPROLOL TARTRATE 25 MG TABLET GT SCH ×3 (08:53→20:51)
[2022-07-29] MEDS: ASPIRIN 81 MG TAB.CHEW GT SCH (08:53)
[2022-07-29] MEDS: DOCUSATE SODIUM LIQ 100 MG/10 ML UDC GT SCH ×2 (08:53→20:30)
[2022-07-29] MEDS: FUROSEMIDE 20 MG TABLET GT SCH (08:55)
[2022-07-29] MEDS: PROSTAT (PYXIS) 30 ML UDC GT SCH ×2 (08:55→17:00)
[2022-07-29] MEDS: OMEPRAZOLE 20 MG CAPSULE.DR GT SCH (08:55)
[2022-07-29] MEDS: ASCORBIC ACID 500 MG TABLET GT SCH ×2 (08:55→20:30)
[2022-07-29] MEDS: CHLORHEXIDINE GLUCONATE 15 ML UDC MM SCH ×2 (09:00→20:31)
[2022-07-29] MEDS: VITAMINS A AND D 56.7 GM TUBE TP SCH ×2 (09:00→20:31)
[2022-07-29 09:49] LABS: ABG BASE EXCESS 4.4 mmol/L; ABG OXYGEN SATURATION 91.1 % (92.0-98.5); ABG PCO2 37.8 mmHg (35.0-45.0); ABG PH 7.488 (7.350-7.450); ABG PO2 61.8 mmHg (75.0-100.0); ABG TOTAL HEMOGLOBIN 9.5 G/dL (13.5-18.0); AaDO2 107.7 mmHg; MetHb 0.4 % (0.0-1.5); O2Hb 90.7 % (94.0-97.0); SITE, ABG Right Brachial
[2022-07-29] MEDS: ALPRAZOLAM 0.5 MG TABLET GT SCH ×2 (10:00→20:31)
[2022-07-29] MEDS: VANCOMYCIN 1 GM in IV D5W 250ml IV SCH (21:00)
[2022-07-30] VITALS (7 sets, daily range): BP systolic 104–128; BP diastolic 63–93; TEMP 97.9–99.8; O2SAT 97–100
[2022-07-30] MEDS: IPRATROPIUM NEB FS 0.5 MG/2.5 ML AMPUL.NEB NEB SCH ×4 (01:05→18:55)
[2022-07-30] MEDS: ALBUTEROL FS 2.5 MG/3 ML VIAL.NEB NEB SCH ×4 (01:05→18:55)
[2022-07-30] MEDS: BACLOFEN (10 MG) 10 MG TABLET PEG SCH ×3 (05:36→20:41)
[2022-07-30] MEDS: JEVITY 1.2 CAL 1,000 ML BOTTLE GT PRN (05:37)
[2022-07-30] MEDS: APIXABAN 5 MG TABLET GT SCH ×2 (05:37→18:30)
[2022-07-30] MEDS: ASPIRIN 81 MG TAB.CHEW GT SCH (08:51)
[2022-07-30] MEDS: DOCUSATE SODIUM LIQ 100 MG/10 ML UDC GT SCH ×2 (08:51→20:40)
[2022-07-30] MEDS: FUROSEMIDE 20 MG TABLET GT SCH (08:52)
[2022-07-30] MEDS: METOPROLOL TARTRATE 25 MG TABLET GT SCH ×2 (08:53→20:41)
[2022-07-30] MEDS: OMEPRAZOLE 20 MG CAPSULE.DR GT SCH (08:53)
[2022-07-30] MEDS: ASCORBIC ACID 500 MG TABLET GT SCH ×2 (08:54→20:41)
[2022-07-30] MEDS: PROSTAT (PYXIS) 30 ML UDC GT SCH ×2 (08:54→16:49)
[2022-07-30] MEDS: CHLORHEXIDINE GLUCONATE 15 ML UDC MM SCH ×2 (08:55→20:41)
[2022-07-30] MEDS: ALPRAZOLAM 0.5 MG TABLET GT SCH ×2 (08:55→20:41)
[2022-07-30] MEDS: VITAMINS A AND D 56.7 GM TUBE TP SCH ×2 (09:00→20:41)
[2022-07-30] MEDS: HYDROGEN PEROXIDE 480 ML BOTTLE TP SCH ×2 (09:32→21:04)
[2022-07-31] VITALS (7 sets, daily range): BP systolic 107–128; BP diastolic 59–71; TEMP 97.7–98.2; O2SAT 97–100
[2022-07-31] MEDS: IPRATROPIUM NEB FS 0.5 MG/2.5 ML AMPUL.NEB NEB SCH ×4 (00:32→19:02)
[2022-07-31] MEDS: ALBUTEROL FS 2.5 MG/3 ML VIAL.NEB NEB SCH ×4 (00:32→19:02)
[2022-07-31] MEDS: BACLOFEN (10 MG) 10 MG TABLET PEG SCH ×3 (05:26→20:49)
[2022-07-31] MEDS: JEVITY 1.2 CAL 1,000 ML BOTTLE GT PRN (05:27)
[2022-07-31] MEDS: APIXABAN 5 MG TABLET GT SCH ×2 (05:30→17:31)
[2022-07-31] MEDS: HYDROGEN PEROXIDE 480 ML BOTTLE TP SCH ×2 (08:05→19:02)
[2022-07-31] MEDS: FUROSEMIDE 20 MG TABLET GT SCH (09:34)
[2022-07-31] MEDS: DOCUSATE SODIUM LIQ 100 MG/10 ML UDC GT SCH ×2 (09:34→20:44)
[2022-07-31] MEDS: ASPIRIN 81 MG TAB.CHEW GT SCH (09:34)
[2022-07-31] MEDS: ASCORBIC ACID 500 MG TABLET GT SCH ×2 (09:35→20:47)
[2022-07-31] MEDS: OMEPRAZOLE 20 MG CAPSULE.DR GT SCH (09:35)
[2022-07-31] MEDS: ALPRAZOLAM 0.5 MG TABLET GT SCH ×2 (09:35→20:48)
[2022-07-31] MEDS: VITAMINS A AND D 56.7 GM TUBE TP SCH ×2 (09:35→20:49)
[2022-07-31] MEDS: METOPROLOL TARTRATE 25 MG TABLET GT SCH ×2 (09:35→20:47)
[2022-07-31] MEDS: PROSTAT (PYXIS) 30 ML UDC GT SCH ×2 (09:35→16:46)
[2022-07-31] MEDS: CHLORHEXIDINE GLUCONATE 15 ML UDC MM SCH ×2 (09:35→21:00)
[2022-07-31] MEDS: LORAZEPAM 1 MG TABLET GT PRN (15:30)
[2022-07-31] MEDS: HYDROCODONE/APAP 5/325MG TABLET GT PRN (18:20)
[2022-08-01] MEDS: IPRATROPIUM NEB FS 0.5 MG/2.5 ML AMPUL.NEB NEB SCH ×4 (01:49→19:00)
[2022-08-01] MEDS: ALBUTEROL FS 2.5 MG/3 ML VIAL.NEB NEB SCH ×4 (01:50→19:00)
[2022-08-01] MEDS: BACLOFEN (10 MG) 10 MG TABLET PEG SCH ×3 (05:09→21:20)
[2022-08-01] MEDS: APIXABAN 5 MG TABLET GT SCH ×2 (05:09→17:38)
[2022-08-01 07:48] VITALS: BP 100/54; TEMP 98.4; O2SAT 100; O2SAT 99
[2022-08-01] MEDS: FUROSEMIDE 20 MG TABLET GT SCH (09:00)
[2022-08-01] MEDS: METOPROLOL TARTRATE 25 MG TABLET GT SCH ×2 (09:00→21:20)
[2022-08-01] MEDS: HYDROGEN PEROXIDE 480 ML BOTTLE TP SCH ×2 (09:12→20:30)
[2022-08-01] MEDS: DOCUSATE SODIUM LIQ 100 MG/10 ML UDC GT SCH ×2 (09:22→21:19)
[2022-08-01] MEDS: ASPIRIN 81 MG TAB.CHEW GT SCH (09:22)
[2022-08-01] MEDS: PROSTAT (PYXIS) 30 ML UDC GT SCH ×2 (09:23→17:37)
[2022-08-01] MEDS: CHLORHEXIDINE GLUCONATE 15 ML UDC MM SCH ×2 (09:23→21:20)
[2022-08-01] MEDS: VITAMINS A AND D 56.7 GM TUBE TP SCH ×2 (09:23→21:20)
[2022-08-01] MEDS: ALPRAZOLAM 0.5 MG TABLET GT SCH ×2 (09:23→21:20)
[2022-08-01] MEDS: ASCORBIC ACID 500 MG TABLET GT SCH ×2 (09:23→21:20)
[2022-08-01] MEDS: OMEPRAZOLE 20 MG CAPSULE.DR GT SCH (09:23)
[2022-08-01 10:14] VITALS: O2SAT 100
[2022-08-01] MEDS: JEVITY 1.2 CAL 1,000 ML BOTTLE GT PRN (12:07)
[2022-08-01 12:58] VITALS: BP 112/67; TEMP 98.3; O2SAT 100
[2022-08-01 19:46] VITALS: BP 135/67; TEMP 97.6; O2SAT 99
[2022-08-01 23:10] VITALS: O2SAT 98
[2022-08-02] MEDS: IPRATROPIUM NEB FS 0.5 MG/2.5 ML AMPUL.NEB NEB SCH ×4 (01:23→19:51)
[2022-08-02] MEDS: ALBUTEROL FS 2.5 MG/3 ML VIAL.NEB NEB SCH ×4 (01:23→19:51)
[2022-08-02 01:55] VITALS: BP 114/64; TEMP 97.8; O2SAT 100
[2022-08-02] MEDS: BACLOFEN (10 MG) 10 MG TABLET PEG SCH ×3 (05:33→21:15)
[2022-08-02] MEDS: APIXABAN 5 MG TABLET GT SCH ×2 (05:33→18:01)
[2022-08-02 07:47] VITALS: BP 115/77; TEMP 98.2; O2SAT 100
[2022-08-02] MEDS: DOCUSATE SODIUM LIQ 100 MG/10 ML UDC GT SCH ×2 (08:59→21:15)
[2022-08-02] MEDS: FUROSEMIDE 20 MG TABLET GT SCH (08:59)
[2022-08-02] MEDS: METOPROLOL TARTRATE 25 MG TABLET GT SCH ×2 (08:59→21:15)
[2022-08-02] MEDS: ASPIRIN 81 MG TAB.CHEW GT SCH (08:59)
[2022-08-02] MEDS: PROSTAT (PYXIS) 30 ML UDC GT SCH ×2 (08:59→17:00)
[2022-08-02] MEDS: ASCORBIC ACID 500 MG TABLET GT SCH ×2 (08:59→21:15)
[2022-08-02] MEDS: OMEPRAZOLE 20 MG CAPSULE.DR GT SCH (08:59)
[2022-08-02] MEDS: CHLORHEXIDINE GLUCONATE 15 ML UDC MM SCH ×2 (09:00→21:15)
[2022-08-02] MEDS: VITAMINS A AND D 56.7 GM TUBE TP SCH ×2 (09:01→21:15)
[2022-08-02] MEDS: ALPRAZOLAM 0.5 MG TABLET GT SCH ×2 (09:01→21:15)
[2022-08-02] MEDS: HYDROGEN PEROXIDE 480 ML BOTTLE TP SCH ×2 (09:45→19:51)
[2022-08-02 10:08] VITALS: O2SAT 98
[2022-08-02] MEDS: JEVITY 1.2 CAL 1,000 ML BOTTLE GT PRN (18:04)
[2022-08-02 19:40] VITALS: BP 114/64; TEMP 98.3; O2SAT 97
[2022-08-02 22:43] VITALS: O2SAT 97
[2022-08-03] MEDS: LORAZEPAM 1 MG TABLET GT PRN ×3 (01:44→18:47)
[2022-08-03] MEDS: ALBUTEROL FS 2.5 MG/3 ML VIAL.NEB NEB SCH ×4 (02:06→20:02)
[2022-08-03] MEDS: IPRATROPIUM NEB FS 0.5 MG/2.5 ML AMPUL.NEB NEB SCH ×4 (02:06→20:02)
[2022-08-03] MEDS: BACLOFEN (10 MG) 10 MG TABLET PEG SCH ×3 (05:30→20:52)
[2022-08-03] MEDS: APIXABAN 5 MG TABLET GT SCH ×2 (05:31→17:40)
[2022-08-03] MEDS: HYDROGEN PEROXIDE 480 ML BOTTLE TP SCH ×2 (08:30→20:03)
[2022-08-03] MEDS: DOCUSATE SODIUM LIQ 100 MG/10 ML UDC GT SCH ×2 (08:56→20:51)
[2022-08-03] MEDS: ASPIRIN 81 MG TAB.CHEW GT SCH (08:56)
[2022-08-03] MEDS: OMEPRAZOLE 20 MG CAPSULE.DR GT SCH (08:57)
[2022-08-03] MEDS: ASCORBIC ACID 500 MG TABLET GT SCH ×2 (08:57→20:52)
[2022-08-03] MEDS: FUROSEMIDE 20 MG TABLET GT SCH (08:57)
[2022-08-03] MEDS: CHLORHEXIDINE GLUCONATE 15 ML UDC MM SCH ×2 (08:57→20:52)
[2022-08-03] MEDS: METOPROLOL TARTRATE 25 MG TABLET GT SCH ×2 (08:57→20:52)
[2022-08-03] MEDS: PROSTAT (PYXIS) 30 ML UDC GT SCH ×2 (08:57→17:01)
[2022-08-03] MEDS: VITAMINS A AND D 56.7 GM TUBE TP SCH ×2 (08:57→20:52)
[2022-08-03] MEDS: ALPRAZOLAM 0.5 MG TABLET GT SCH ×2 (08:57→20:52)
[2022-08-03 19:33] VITALS: BP 132/95; TEMP 98.9; O2SAT 99
[2022-08-03 20:03] VITALS: O2SAT 100
[2022-08-03 22:30] VITALS: O2SAT 99
[2022-08-04] MEDS: IPRATROPIUM NEB FS 0.5 MG/2.5 ML AMPUL.NEB NEB SCH ×4 (01:38→20:08)
[2022-08-04] MEDS: ALBUTEROL FS 2.5 MG/3 ML VIAL.NEB NEB SCH ×4 (01:38→20:08)
[2022-08-04] MEDS: LORAZEPAM 1 MG TABLET GT PRN (03:07)
[2022-08-04] MEDS: ACETAMINOPHEN 650 MG/20 ML UDC- SA PATIENTS-PAIN ONLY GT PRN ×2 (03:07→18:53)
[2022-08-04] MEDS: JEVITY 1.2 CAL 1,000 ML BOTTLE GT PRN (03:11)
[2022-08-04] MEDS: BACLOFEN (10 MG) 10 MG TABLET PEG SCH ×3 (05:30→20:24)
[2022-08-04] MEDS: APIXABAN 5 MG TABLET GT SCH ×2 (05:31→18:44)
[2022-08-04 07:46] VITALS: BP 103/61; TEMP 98.8; O2SAT 100
[2022-08-04] MEDS: HYDROGEN PEROXIDE 480 ML BOTTLE TP SCH ×2 (08:07→20:08)
[2022-08-04] MEDS: METOPROLOL TARTRATE 25 MG TABLET GT SCH ×2 (09:00→20:26)
[2022-08-04] MEDS: ASPIRIN 81 MG TAB.CHEW GT SCH (09:18)
[2022-08-04] MEDS: DOCUSATE SODIUM LIQ 100 MG/10 ML UDC GT SCH ×2 (09:18→20:24)
[2022-08-04] MEDS: FUROSEMIDE 20 MG TABLET GT SCH (09:19)
[2022-08-04] MEDS: OMEPRAZOLE 20 MG CAPSULE.DR GT SCH (09:21)
[2022-08-04] MEDS: PROSTAT (PYXIS) 30 ML UDC GT SCH ×2 (09:21→17:00)
[2022-08-04] MEDS: ASCORBIC ACID 500 MG TABLET GT SCH ×2 (09:22→20:24)
[2022-08-04] MEDS: ALPRAZOLAM 0.5 MG TABLET GT SCH ×2 (09:28→20:24)
[2022-08-04] MEDS: VITAMINS A AND D 56.7 GM TUBE TP SCH ×2 (09:28→20:24)
[2022-08-04] MEDS: CHLORHEXIDINE GLUCONATE 15 ML UDC MM SCH ×2 (09:28→20:24)
[2022-08-04 11:44] VITALS: O2SAT 100
[2022-08-04 12:02] VITALS: BP 135/74; TEMP 97.5; O2SAT 96
[2022-08-04 19:26] VITALS: BP 135/79; TEMP 97.9; O2SAT 99
[2022-08-04 22:27] VITALS: O2SAT 100
[2022-08-04] MEDS: HYDROCODONE/APAP 5/325MG TABLET GT PRN (22:56)
[2022-08-05] VITALS (8 sets, daily range): BP systolic 104–138; BP diastolic 57–96; TEMP 98–99.3; O2SAT 92–100
[2022-08-05] MEDS: IPRATROPIUM NEB FS 0.5 MG/2.5 ML AMPUL.NEB NEB SCH ×4 (02:01→19:02)
[2022-08-05] MEDS: ALBUTEROL FS 2.5 MG/3 ML VIAL.NEB NEB SCH ×4 (02:01→19:02)
[2022-08-05] MEDS: BACLOFEN (10 MG) 10 MG TABLET PEG SCH ×3 (05:13→20:45)
[2022-08-05] MEDS: JEVITY 1.2 CAL 1,000 ML BOTTLE GT PRN (06:55)
[2022-08-05] MEDS: APIXABAN 5 MG TABLET GT SCH ×2 (06:55→17:53)
[2022-08-05] MEDS: FUROSEMIDE 20 MG TABLET GT SCH (08:10)
[2022-08-05] MEDS: DOCUSATE SODIUM LIQ 100 MG/10 ML UDC GT SCH ×2 (08:10→20:45)
[2022-08-05] MEDS: ASPIRIN 81 MG TAB.CHEW GT SCH (08:10)
[2022-08-05] MEDS: METOPROLOL TARTRATE 25 MG TABLET GT SCH ×2 (08:11→20:45)
[2022-08-05] MEDS: OMEPRAZOLE 20 MG CAPSULE.DR GT SCH (08:16)
[2022-08-05] MEDS: PROSTAT (PYXIS) 30 ML UDC GT SCH ×2 (08:16→17:14)
[2022-08-05] MEDS: ASCORBIC ACID 500 MG TABLET GT SCH ×2 (08:16→20:45)
[2022-08-05] MEDS: ALPRAZOLAM 0.5 MG TABLET GT SCH ×2 (08:17→20:45)
[2022-08-05] MEDS: CHLORHEXIDINE GLUCONATE 15 ML UDC MM SCH ×2 (08:17→20:45)
[2022-08-05] MEDS: VITAMINS A AND D 56.7 GM TUBE TP SCH ×2 (08:17→20:45)
[2022-08-05] MEDS: HYDROGEN PEROXIDE 480 ML BOTTLE TP SCH ×2 (10:05→21:03)
[2022-08-05] MEDS: LORAZEPAM 1 MG TABLET GT PRN (13:42)
[2022-08-06] MEDS: ALBUTEROL FS 2.5 MG/3 ML VIAL.NEB NEB SCH ×4 (01:08→19:20)
[2022-08-06] MEDS: IPRATROPIUM NEB FS 0.5 MG/2.5 ML AMPUL.NEB NEB SCH ×4 (01:08→19:20)
[2022-08-06] MEDS: LORAZEPAM 1 MG TABLET GT PRN (02:30)
[2022-08-06] MEDS: BACLOFEN (10 MG) 10 MG TABLET PEG SCH ×3 (05:44→20:59)
[2022-08-06] MEDS: APIXABAN 5 MG TABLET GT SCH ×2 (05:45→17:53)
[2022-08-06] MEDS: HYDROGEN PEROXIDE 480 ML BOTTLE TP SCH ×2 (08:28→21:26)
[2022-08-06 08:34] VITALS: BP 140/97; TEMP 98.8; O2SAT 99
[2022-08-06] MEDS: ASPIRIN 81 MG TAB.CHEW GT SCH (08:48)
[2022-08-06] MEDS: DOCUSATE SODIUM LIQ 100 MG/10 ML UDC GT SCH ×2 (08:48→20:58)
[2022-08-06] MEDS: ASCORBIC ACID 500 MG TABLET GT SCH ×2 (08:50→20:58)
[2022-08-06] MEDS: OMEPRAZOLE 20 MG CAPSULE.DR GT SCH (08:50)
[2022-08-06] MEDS: PROSTAT (PYXIS) 30 ML UDC GT SCH ×2 (08:50→16:26)
[2022-08-06] MEDS: FUROSEMIDE 20 MG TABLET GT SCH (08:50)
[2022-08-06] MEDS: METOPROLOL TARTRATE 25 MG TABLET GT SCH ×2 (08:50→20:58)
[2022-08-06] MEDS: VITAMINS A AND D 56.7 GM TUBE TP SCH ×2 (08:52→20:59)
[2022-08-06] MEDS: CHLORHEXIDINE GLUCONATE 15 ML UDC MM SCH ×2 (08:52→20:59)
[2022-08-06] MEDS: ALPRAZOLAM 0.5 MG TABLET GT SCH ×2 (08:52→20:58)
[2022-08-06 09:44] VITALS: O2SAT 99
[2022-08-06] MEDS: JEVITY 1.2 CAL 1,000 ML BOTTLE GT PRN (14:45)
[2022-08-06 18:53] VITALS: BP 105/65; TEMP 99.9; O2SAT 99
[2022-08-06 22:21] VITALS: O2SAT 98
[2022-08-07 01:54] VITALS: BP 123/73; TEMP 98.4; O2SAT 100
[2022-08-07] MEDS: ALBUTEROL FS 2.5 MG/3 ML VIAL.NEB NEB SCH ×4 (02:10→18:56)
[2022-08-07] MEDS: IPRATROPIUM NEB FS 0.5 MG/2.5 ML AMPUL.NEB NEB SCH ×4 (02:10→18:56)
[2022-08-07] MEDS: HYDROCODONE/APAP 5/325MG TABLET GT PRN (03:26)
[2022-08-07] MEDS: BACLOFEN (10 MG) 10 MG TABLET PEG SCH ×3 (05:56→21:02)
[2022-08-07] MEDS: APIXABAN 5 MG TABLET GT SCH ×2 (05:57→17:39)
[2022-08-07] MEDS: JEVITY 1.2 CAL 1,000 ML BOTTLE GT PRN (06:17)
[2022-08-07 08:12] VITALS: BP 126/73; TEMP 98; O2SAT 99
[2022-08-07] MEDS: DOCUSATE SODIUM LIQ 100 MG/10 ML UDC GT SCH ×2 (08:49→21:01)
[2022-08-07] MEDS: OMEPRAZOLE 20 MG CAPSULE.DR GT SCH (08:49)
[2022-08-07] MEDS: METOPROLOL TARTRATE 25 MG TABLET GT SCH ×2 (08:49→21:00)
[2022-08-07] MEDS: ASCORBIC ACID 500 MG TABLET GT SCH ×2 (08:49→21:02)
[2022-08-07] MEDS: CHLORHEXIDINE GLUCONATE 15 ML UDC MM SCH ×2 (08:49→21:02)
[2022-08-07] MEDS: FUROSEMIDE 20 MG TABLET GT SCH (08:49)
[2022-08-07] MEDS: ALPRAZOLAM 0.5 MG TABLET GT SCH ×2 (08:49→21:02)
[2022-08-07] MEDS: PROSTAT (PYXIS) 30 ML UDC GT SCH ×2 (08:49→16:40)
[2022-08-07] MEDS: VITAMINS A AND D 56.7 GM TUBE TP SCH ×2 (08:49→21:02)
[2022-08-07] MEDS: ASPIRIN 81 MG TAB.CHEW GT SCH (08:49)
[2022-08-07] MEDS: HYDROGEN PEROXIDE 480 ML BOTTLE TP SCH ×2 (09:22→20:06)
[2022-08-07 10:07] VITALS: O2SAT 99
[2022-08-07 19:46] VITALS: BP 104/58; TEMP 98.4; O2SAT 100
[2022-08-07 22:23] VITALS: O2SAT 100
[2022-08-08 00:13] VITALS: BP 100/62; TEMP 97.8; O2SAT 100
[2022-08-08] MEDS: IPRATROPIUM NEB FS 0.5 MG/2.5 ML AMPUL.NEB NEB SCH ×4 (00:36→19:30)
[2022-08-08] MEDS: ALBUTEROL FS 2.5 MG/3 ML VIAL.NEB NEB SCH ×4 (00:36→19:30)
[2022-08-08] MEDS: BACLOFEN (10 MG) 10 MG TABLET PEG SCH ×3 (04:55→20:51)
[2022-08-08] MEDS: APIXABAN 5 MG TABLET GT SCH ×2 (05:10→17:34)
[2022-08-08] MEDS: JEVITY 1.2 CAL 1,000 ML BOTTLE GT PRN (05:10)
[2022-08-08 07:47] VITALS: BP 107/74; TEMP 98.2; O2SAT 99
[2022-08-08] MEDS: METOPROLOL TARTRATE 25 MG TABLET GT SCH ×2 (09:00→20:51)
[2022-08-08] MEDS: OMEPRAZOLE 20 MG CAPSULE.DR GT SCH (09:09)
[2022-08-08] MEDS: ASPIRIN 81 MG TAB.CHEW GT SCH (09:09)
[2022-08-08] MEDS: PROSTAT (PYXIS) 30 ML UDC GT SCH ×2 (09:09→16:28)
[2022-08-08] MEDS: ASCORBIC ACID 500 MG TABLET GT SCH ×2 (09:09→20:51)
[2022-08-08] MEDS: FUROSEMIDE 20 MG TABLET GT SCH (09:09)
[2022-08-08] MEDS: DOCUSATE SODIUM LIQ 100 MG/10 ML UDC GT SCH ×2 (09:09→20:51)
[2022-08-08] MEDS: CHLORHEXIDINE GLUCONATE 15 ML UDC MM SCH ×2 (09:10→20:51)
[2022-08-08] MEDS: VITAMINS A AND D 56.7 GM TUBE TP SCH ×2 (09:10→20:51)
[2022-08-08] MEDS: ALPRAZOLAM 0.5 MG TABLET GT SCH ×2 (09:10→20:51)
[2022-08-08] MEDS: HYDROGEN PEROXIDE 480 ML BOTTLE TP SCH ×2 (09:51→21:00)
[2022-08-08 10:07] VITALS: O2SAT 100
[2022-08-08 14:00] VITALS: BP 104/60; TEMP 99; O2SAT 99
[2022-08-08 19:11] VITALS: BP 128/77; TEMP 98.7; O2SAT 98
[2022-08-09 01:07] VITALS: O2SAT 100
[2022-08-09] MEDS: IPRATROPIUM NEB FS 0.5 MG/2.5 ML AMPUL.NEB NEB SCH ×4 (01:30→19:30)
[2022-08-09] MEDS: ALBUTEROL FS 2.5 MG/3 ML VIAL.NEB NEB SCH ×4 (01:30→19:30)
[2022-08-09] MEDS: BACLOFEN (10 MG) 10 MG TABLET PEG SCH ×3 (05:00→21:01)
[2022-08-09] MEDS: APIXABAN 5 MG TABLET GT SCH ×2 (06:07→17:35)
[2022-08-09] MEDS: HYDROGEN PEROXIDE 480 ML BOTTLE TP SCH ×2 (08:33→20:51)
[2022-08-09] MEDS: PROSTAT (PYXIS) 30 ML UDC GT SCH ×2 (08:46→16:18)
[2022-08-09] MEDS: ALPRAZOLAM 0.5 MG TABLET GT SCH ×2 (08:46→21:01)
[2022-08-09] MEDS: CHLORHEXIDINE GLUCONATE 15 ML UDC MM SCH ×2 (08:46→21:01)
[2022-08-09] MEDS: ASPIRIN 81 MG TAB.CHEW GT SCH (08:46)
[2022-08-09] MEDS: FUROSEMIDE 20 MG TABLET GT SCH (08:46)
[2022-08-09] MEDS: OMEPRAZOLE 20 MG CAPSULE.DR GT SCH (08:46)
[2022-08-09] MEDS: DOCUSATE SODIUM LIQ 100 MG/10 ML UDC GT SCH ×2 (08:46→21:01)
[2022-08-09] MEDS: ASCORBIC ACID 500 MG TABLET GT SCH ×2 (08:46→21:01)
[2022-08-09] MEDS: METOPROLOL TARTRATE 25 MG TABLET GT SCH ×2 (08:46→21:01)
[2022-08-09] MEDS: VITAMINS A AND D 56.7 GM TUBE TP SCH ×2 (08:47→21:01)
[2022-08-09] MEDS: JEVITY 1.2 CAL 1,000 ML BOTTLE GT PRN (11:43)
[2022-08-09] MEDS: ACETAMINOPHEN 650 MG/20 ML UDC- SA PATIENTS-PAIN ONLY GT PRN (14:29)
[2022-08-09 20:04] VITALS: BP 115/78; TEMP 98.6; O2SAT 100
[2022-08-09 22:37] VITALS: O2SAT 99
[2022-08-10] MEDS: IPRATROPIUM NEB FS 0.5 MG/2.5 ML AMPUL.NEB NEB SCH ×4 (02:01→20:15)
[2022-08-10] MEDS: ALBUTEROL FS 2.5 MG/3 ML VIAL.NEB NEB SCH ×4 (02:01→20:15)
[2022-08-10] MEDS: APIXABAN 5 MG TABLET GT SCH ×2 (05:32→18:02)
[2022-08-10] MEDS: BACLOFEN (10 MG) 10 MG TABLET PEG SCH ×3 (05:32→21:22)
[2022-08-10 07:20] VITALS: BP 98/58; TEMP 98.8; O2SAT 100
[2022-08-10] MEDS: HYDROGEN PEROXIDE 480 ML BOTTLE TP SCH ×2 (09:00→20:15)
[2022-08-10] MEDS: METOPROLOL TARTRATE 25 MG TABLET GT SCH ×2 (09:00→21:21)
[2022-08-10] MEDS: VITAMINS A AND D 56.7 GM TUBE TP SCH ×2 (09:27→21:22)
[2022-08-10] MEDS: DOCUSATE SODIUM LIQ 100 MG/10 ML UDC GT SCH ×2 (09:27→21:21)
[2022-08-10] MEDS: FUROSEMIDE 20 MG TABLET GT SCH (09:27)
[2022-08-10] MEDS: ASPIRIN 81 MG TAB.CHEW GT SCH (09:27)
[2022-08-10] MEDS: ASCORBIC ACID 500 MG TABLET GT SCH ×2 (09:27→21:21)
[2022-08-10] MEDS: PROSTAT (PYXIS) 30 ML UDC GT SCH ×2 (09:27→16:44)
[2022-08-10] MEDS: ALPRAZOLAM 0.5 MG TABLET GT SCH ×2 (09:27→21:21)
[2022-08-10] MEDS: CHLORHEXIDINE GLUCONATE 15 ML UDC MM SCH ×2 (09:27→21:21)
[2022-08-10] MEDS: OMEPRAZOLE 20 MG CAPSULE.DR GT SCH (09:27)
[2022-08-10 10:03] VITALS: O2SAT 99
[2022-08-10 11:50] VITALS: BP 107/54; TEMP 98.4; O2SAT 94
[2022-08-10] MEDS: JEVITY 1.2 CAL 1,000 ML BOTTLE GT PRN (12:13)
[2022-08-10] MEDS: ACETAMINOPHEN 650 MG/20 ML UDC- SA PATIENTS-PAIN ONLY GT PRN (16:45)
[2022-08-10 20:16] VITALS: BP 101/53; TEMP 98.6; O2SAT 100
[2022-08-10 23:38] VITALS: O2SAT 100
[2022-08-11 00:55] VITALS: BP 115/59; TEMP 97.6; O2SAT 100
[2022-08-11] MEDS: ALBUTEROL FS 2.5 MG/3 ML VIAL.NEB NEB SCH ×4 (01:52→20:00)
[2022-08-11] MEDS: IPRATROPIUM NEB FS 0.5 MG/2.5 ML AMPUL.NEB NEB SCH ×4 (01:52→20:00)
[2022-08-11] MEDS: LORAZEPAM 1 MG TABLET GT PRN (02:54)
[2022-08-11] MEDS: APIXABAN 5 MG TABLET GT SCH ×2 (05:55→19:15)
[2022-08-11] MEDS: BACLOFEN (10 MG) 10 MG TABLET PEG SCH ×3 (05:55→21:30)
[2022-08-11 07:12] VITALS: BP 144/95; TEMP 98.2; O2SAT 99
[2022-08-11] MEDS: HYDROGEN PEROXIDE 480 ML BOTTLE TP SCH ×2 (08:37→20:00)
[2022-08-11] MEDS: DOCUSATE SODIUM LIQ 100 MG/10 ML UDC GT SCH ×2 (08:48→21:30)
[2022-08-11] MEDS: ASPIRIN 81 MG TAB.CHEW GT SCH (08:48)
[2022-08-11] MEDS: OMEPRAZOLE 20 MG CAPSULE.DR GT SCH (08:48)
[2022-08-11] MEDS: FUROSEMIDE 20 MG TABLET GT SCH (08:48)
[2022-08-11] MEDS: METOPROLOL TARTRATE 25 MG TABLET GT SCH (08:48)
[2022-08-11] MEDS: ALPRAZOLAM 0.5 MG TABLET GT SCH ×2 (08:49→21:30)
[2022-08-11] MEDS: CHLORHEXIDINE GLUCONATE 15 ML UDC MM SCH ×2 (08:49→21:30)
[2022-08-11] MEDS: VITAMINS A AND D 56.7 GM TUBE TP SCH ×2 (08:49→21:30)
[2022-08-11] MEDS: ASCORBIC ACID 500 MG TABLET GT SCH ×2 (08:49→21:30)
[2022-08-11] MEDS: PROSTAT (PYXIS) 30 ML UDC GT SCH ×2 (08:49→16:48)
[2022-08-11 11:40] VITALS: O2SAT 100
[2022-08-11 13:24] VITALS: BP 91/58; TEMP 98; O2SAT 100
[2022-08-11 18:43] VITALS: BP 98/61; TEMP 98.4; O2SAT 97
[2022-08-11 23:51] VITALS: O2SAT 99
[2022-08-12] VITALS (7 sets, daily range): BP systolic 115–126; BP diastolic 60–66; TEMP 97.9–98.2; O2SAT 99–100
[2022-08-12] MEDS: IPRATROPIUM NEB FS 0.5 MG/2.5 ML AMPUL.NEB NEB SCH ×4 (01:53→20:16)
[2022-08-12] MEDS: ALBUTEROL FS 2.5 MG/3 ML VIAL.NEB NEB SCH ×4 (01:53→20:16)
[2022-08-12] MEDS: ACETAMINOPHEN 650 MG/20 ML UDC- SA PATIENTS-PAIN ONLY GT PRN (03:39)
[2022-08-12] MEDS: BACLOFEN (10 MG) 10 MG TABLET PEG SCH ×3 (05:52→21:49)
[2022-08-12] MEDS: APIXABAN 5 MG TABLET GT SCH ×2 (05:52→17:37)
[2022-08-12] MEDS: ASCORBIC ACID 500 MG TABLET GT SCH ×2 (09:10→21:49)
[2022-08-12] MEDS: DOCUSATE SODIUM LIQ 100 MG/10 ML UDC GT SCH ×2 (09:10→21:49)
[2022-08-12] MEDS: CHLORHEXIDINE GLUCONATE 15 ML UDC MM SCH ×2 (09:10→21:49)
[2022-08-12] MEDS: ASPIRIN 81 MG TAB.CHEW GT SCH (09:10)
[2022-08-12] MEDS: VITAMINS A AND D 56.7 GM TUBE TP SCH ×2 (09:10→21:49)
[2022-08-12] MEDS: PROSTAT (PYXIS) 30 ML UDC GT SCH ×2 (09:10→17:37)
[2022-08-12] MEDS: OMEPRAZOLE 20 MG CAPSULE.DR GT SCH (09:10)
[2022-08-12] MEDS: ALPRAZOLAM 0.5 MG TABLET GT SCH ×2 (09:10→21:49)
[2022-08-12] MEDS: HYDROGEN PEROXIDE 480 ML BOTTLE TP SCH ×2 (09:32→20:16)
[2022-08-12] MEDS: JEVITY 1.2 CAL 1,000 ML BOTTLE GT PRN (18:30)
[2022-08-13 01:32] VITALS: BP 130/68; TEMP 98; O2SAT 100
[2022-08-13] MEDS: IPRATROPIUM NEB FS 0.5 MG/2.5 ML AMPUL.NEB NEB SCH ×4 (01:45→19:56)
[2022-08-13] MEDS: ALBUTEROL FS 2.5 MG/3 ML VIAL.NEB NEB SCH ×4 (01:45→19:56)
[2022-08-13] MEDS: APIXABAN 5 MG TABLET GT SCH ×2 (05:36→18:15)
[2022-08-13] MEDS: BACLOFEN (10 MG) 10 MG TABLET PEG SCH ×3 (05:36→20:32)
[2022-08-13 07:10] VITALS: BP 109/79; TEMP 97.8; O2SAT 100
[2022-08-13] MEDS: VITAMINS A AND D 56.7 GM TUBE TP SCH ×2 (09:03→20:32)
[2022-08-13] MEDS: ASCORBIC ACID 500 MG TABLET GT SCH ×2 (09:03→20:32)
[2022-08-13] MEDS: CHLORHEXIDINE GLUCONATE 15 ML UDC MM SCH ×2 (09:03→20:32)
[2022-08-13] MEDS: PROSTAT (PYXIS) 30 ML UDC GT SCH ×2 (09:03→17:11)
[2022-08-13] MEDS: OMEPRAZOLE 20 MG CAPSULE.DR GT SCH (09:03)
[2022-08-13] MEDS: ALPRAZOLAM 0.5 MG TABLET GT SCH ×2 (09:03→20:32)
[2022-08-13] MEDS: ASPIRIN 81 MG TAB.CHEW GT SCH (09:03)
[2022-08-13] MEDS: DOCUSATE SODIUM LIQ 100 MG/10 ML UDC GT SCH ×2 (09:03→20:32)
[2022-08-13] MEDS: HYDROGEN PEROXIDE 480 ML BOTTLE TP SCH ×2 (09:17→19:56)
[2022-08-13 11:53] VITALS: BP 105/71; TEMP 98; O2SAT 100
[2022-08-13 19:07] VITALS: BP 105/76; TEMP 97.2; O2SAT 100
[2022-08-13 22:25] VITALS: O2SAT 100
[2022-08-14 00:03] VITALS: BP 99/74; TEMP 98.3; O2SAT 100
[2022-08-14] MEDS: IPRATROPIUM NEB FS 0.5 MG/2.5 ML AMPUL.NEB NEB SCH ×4 (01:50→19:57)
[2022-08-14] MEDS: ALBUTEROL FS 2.5 MG/3 ML VIAL.NEB NEB SCH ×4 (01:50→19:57)
[2022-08-14] MEDS: BACLOFEN (10 MG) 10 MG TABLET PEG SCH ×3 (05:24→21:08)
[2022-08-14] MEDS: APIXABAN 5 MG TABLET GT SCH ×2 (06:38→17:36)
[2022-08-14 07:15] VITALS: BP 132/89; TEMP 98.4; O2SAT 100
[2022-08-14] MEDS: HYDROGEN PEROXIDE 480 ML BOTTLE TP SCH ×2 (08:28→19:58)
[2022-08-14] MEDS: VITAMINS A AND D 56.7 GM TUBE TP SCH ×2 (09:25→21:08)
[2022-08-14] MEDS: DOCUSATE SODIUM LIQ 100 MG/10 ML UDC GT SCH ×2 (09:25→21:08)
[2022-08-14] MEDS: ASCORBIC ACID 500 MG TABLET GT SCH ×2 (09:25→21:08)
[2022-08-14] MEDS: ASPIRIN 81 MG TAB.CHEW GT SCH (09:25)
[2022-08-14] MEDS: PROSTAT (PYXIS) 30 ML UDC GT SCH ×2 (09:25→16:20)
[2022-08-14] MEDS: ALPRAZOLAM 0.5 MG TABLET GT SCH ×2 (09:25→21:08)
[2022-08-14] MEDS: CHLORHEXIDINE GLUCONATE 15 ML UDC MM SCH ×2 (09:25→21:08)
[2022-08-14] MEDS: OMEPRAZOLE 20 MG CAPSULE.DR GT SCH (09:25)
[2022-08-14 12:13] VITALS: BP 137/94; TEMP 98.6; O2SAT 100
[2022-08-14 19:30] VITALS: BP 153/73; TEMP 97.9; O2SAT 98
[2022-08-14 22:59] VITALS: O2SAT 100
[2022-08-15 00:11] VITALS: BP 173/60; TEMP 97.9; O2SAT 100
[2022-08-15] MEDS: LORAZEPAM 1 MG TABLET GT PRN (01:06)
[2022-08-15] MEDS: IPRATROPIUM NEB FS 0.5 MG/2.5 ML AMPUL.NEB NEB SCH ×4 (01:56→20:48)
[2022-08-15] MEDS: ALBUTEROL FS 2.5 MG/3 ML VIAL.NEB NEB SCH ×4 (01:56→20:48)
[2022-08-15] MEDS: JEVITY 1.2 CAL 1,000 ML BOTTLE GT PRN (04:19)
[2022-08-15] MEDS: APIXABAN 5 MG TABLET GT SCH ×2 (05:09→17:49)
[2022-08-15] MEDS: BACLOFEN (10 MG) 10 MG TABLET PEG SCH ×3 (05:09→20:54)
[2022-08-15 07:16] VITALS: BP 122/82; TEMP 98.2; O2SAT 100
[2022-08-15] MEDS: CHLORHEXIDINE GLUCONATE 15 ML UDC MM SCH ×2 (08:05→20:54)
[2022-08-15] MEDS: ALPRAZOLAM 0.5 MG TABLET GT SCH ×2 (08:05→20:54)
[2022-08-15] MEDS: DOCUSATE SODIUM LIQ 100 MG/10 ML UDC GT SCH ×2 (08:05→20:53)
[2022-08-15] MEDS: PROSTAT (PYXIS) 30 ML UDC GT SCH ×2 (08:05→17:49)
[2022-08-15] MEDS: ASCORBIC ACID 500 MG TABLET GT SCH ×2 (08:05→20:53)
[2022-08-15] MEDS: ASPIRIN 81 MG TAB.CHEW GT SCH (08:05)
[2022-08-15] MEDS: OMEPRAZOLE 20 MG CAPSULE.DR GT SCH (08:05)
[2022-08-15] MEDS: VITAMINS A AND D 56.7 GM TUBE TP SCH ×2 (08:06→20:54)
[2022-08-15] MEDS: HYDROGEN PEROXIDE 480 ML BOTTLE TP SCH ×2 (09:00→20:59)
[2022-08-15 11:39] VITALS: O2SAT 100
[2022-08-15 12:25] VITALS: BP 104/63; TEMP 97.8; O2SAT 100
[2022-08-15] MEDS: ACETAMINOPHEN 650 MG/20 ML UDC- SA PATIENTS-PAIN ONLY GT PRN (18:46)
[2022-08-15 20:00] VITALS: BP 111/67; TEMP 97.5; O2SAT 99
[2022-08-15 23:53] VITALS: O2SAT 100
[2022-08-16] MEDS: IPRATROPIUM NEB FS 0.5 MG/2.5 ML AMPUL.NEB NEB SCH ×4 (02:22→20:07)
[2022-08-16] MEDS: ALBUTEROL FS 2.5 MG/3 ML VIAL.NEB NEB SCH ×4 (02:22→20:07)
[2022-08-16] MEDS: BACLOFEN (10 MG) 10 MG TABLET PEG SCH ×3 (05:43→21:02)
[2022-08-16] MEDS: APIXABAN 5 MG TABLET GT SCH ×2 (05:43→17:58)
[2022-08-16 07:49] VITALS: BP 117/71; TEMP 98.8; O2SAT 100
[2022-08-16] MEDS: ALPRAZOLAM 0.5 MG TABLET GT SCH ×2 (08:04→21:02)
[2022-08-16] MEDS: ASPIRIN 81 MG TAB.CHEW GT SCH (08:04)
[2022-08-16] MEDS: OMEPRAZOLE 20 MG CAPSULE.DR GT SCH (08:04)
[2022-08-16] MEDS: DOCUSATE SODIUM LIQ 100 MG/10 ML UDC GT SCH ×2 (08:04→21:02)
[2022-08-16] MEDS: PROSTAT (PYXIS) 30 ML UDC GT SCH ×2 (08:04→17:58)
[2022-08-16] MEDS: VITAMINS A AND D 56.7 GM TUBE TP SCH ×2 (08:04→21:02)
[2022-08-16] MEDS: CHLORHEXIDINE GLUCONATE 15 ML UDC MM SCH ×2 (08:04→21:02)
[2022-08-16] MEDS: ASCORBIC ACID 500 MG TABLET GT SCH ×2 (08:04→21:02)
[2022-08-16] MEDS: HYDROGEN PEROXIDE 480 ML BOTTLE TP SCH ×2 (09:35→20:33)
[2022-08-16 10:23] VITALS: O2SAT 100
[2022-08-16] MEDS: JEVITY 1.2 CAL 1,000 ML BOTTLE GT PRN (14:44)
[2022-08-16 20:00] VITALS: BP 132/72; TEMP 98; O2SAT 99
[2022-08-16 22:57] VITALS: O2SAT 100
[2022-08-17] MEDS: IPRATROPIUM NEB FS 0.5 MG/2.5 ML AMPUL.NEB NEB SCH ×4 (01:14→20:07)
[2022-08-17] MEDS: ALBUTEROL FS 2.5 MG/3 ML VIAL.NEB NEB SCH ×4 (01:14→20:07)
[2022-08-17] MEDS: APIXABAN 5 MG TABLET GT SCH ×2 (05:48→18:30)
[2022-08-17] MEDS: BACLOFEN (10 MG) 10 MG TABLET PEG SCH ×3 (05:48→21:03)
[2022-08-17 08:42] VITALS: BP 91/61; TEMP 96; O2SAT 100
[2022-08-17] MEDS: ASPIRIN 81 MG TAB.CHEW GT SCH (09:00)
[2022-08-17] MEDS: CHLORHEXIDINE GLUCONATE 15 ML UDC MM SCH ×2 (09:00→21:03)
[2022-08-17] MEDS: VITAMINS A AND D 56.7 GM TUBE TP SCH ×2 (09:00→21:03)
[2022-08-17] MEDS: ALPRAZOLAM 0.5 MG TABLET GT SCH ×2 (09:00→21:03)
[2022-08-17] MEDS: ASCORBIC ACID 500 MG TABLET GT SCH ×2 (09:00→21:03)
[2022-08-17] MEDS: OMEPRAZOLE 20 MG CAPSULE.DR GT SCH (09:00)
[2022-08-17] MEDS: DOCUSATE SODIUM LIQ 100 MG/10 ML UDC GT SCH ×2 (09:00→21:03)
[2022-08-17] MEDS: PROSTAT (PYXIS) 30 ML UDC GT SCH ×2 (09:00→17:00)
[2022-08-17] MEDS: HYDROGEN PEROXIDE 480 ML BOTTLE TP SCH ×2 (09:08→20:07)
[2022-08-17 11:54] VITALS: O2SAT 100
[2022-08-17 15:29] VITALS: O2SAT 100
[2022-08-17 20:00] VITALS: BP 131/79; TEMP 98.3; O2SAT 99
[2022-08-17 23:23] VITALS: O2SAT 100
[2022-08-18] VITALS (7 sets, daily range): BP systolic 92–122; BP diastolic 52–71; TEMP 97.8–99; O2SAT 98–100
[2022-08-18] MEDS: JEVITY 1.2 CAL 1,000 ML BOTTLE GT PRN (00:19)
[2022-08-18] MEDS: ALBUTEROL FS 2.5 MG/3 ML VIAL.NEB NEB SCH ×4 (01:50→19:21)
[2022-08-18] MEDS: IPRATROPIUM NEB FS 0.5 MG/2.5 ML AMPUL.NEB NEB SCH ×4 (01:50→19:21)
[2022-08-18] MEDS: APIXABAN 5 MG TABLET GT SCH ×2 (05:33→17:31)
[2022-08-18] MEDS: BACLOFEN (10 MG) 10 MG TABLET PEG SCH ×3 (05:33→21:16)
[2022-08-18] MEDS: HYDROGEN PEROXIDE 480 ML BOTTLE TP SCH ×2 (09:24→21:42)
[2022-08-18] MEDS: ALPRAZOLAM 0.5 MG TABLET GT SCH ×2 (09:30→21:16)
[2022-08-18] MEDS: CHLORHEXIDINE GLUCONATE 15 ML UDC MM SCH ×2 (09:30→21:16)
[2022-08-18] MEDS: DOCUSATE SODIUM LIQ 100 MG/10 ML UDC GT SCH ×2 (09:30→21:16)
[2022-08-18] MEDS: OMEPRAZOLE 20 MG CAPSULE.DR GT SCH (09:30)
[2022-08-18] MEDS: ASPIRIN 81 MG TAB.CHEW GT SCH (09:30)
[2022-08-18] MEDS: PROSTAT (PYXIS) 30 ML UDC GT SCH ×2 (09:30→16:33)
[2022-08-18] MEDS: ASCORBIC ACID 500 MG TABLET GT SCH ×2 (09:30→21:16)
[2022-08-18] MEDS: VITAMINS A AND D 56.7 GM TUBE TP SCH ×2 (09:30→21:16)
[2022-08-19] VITALS (8 sets, daily range): BP systolic 109–128; BP diastolic 67–93; TEMP 98.3–98.7; O2SAT 93–100
[2022-08-19] MEDS: IPRATROPIUM NEB FS 0.5 MG/2.5 ML AMPUL.NEB NEB SCH ×4 (01:17→20:10)
[2022-08-19] MEDS: ALBUTEROL FS 2.5 MG/3 ML VIAL.NEB NEB SCH ×4 (01:17→20:10)
[2022-08-19] MEDS: BACLOFEN (10 MG) 10 MG TABLET PEG SCH ×3 (05:56→21:04)
[2022-08-19] MEDS: APIXABAN 5 MG TABLET GT SCH ×2 (05:57→17:31)
[2022-08-19] MEDS: JEVITY 1.2 CAL 1,000 ML BOTTLE GT PRN (05:58)
[2022-08-19] MEDS: VITAMINS A AND D 56.7 GM TUBE TP SCH ×2 (08:04→21:04)
[2022-08-19] MEDS: DOCUSATE SODIUM LIQ 100 MG/10 ML UDC GT SCH ×2 (08:04→21:03)
[2022-08-19] MEDS: PROSTAT (PYXIS) 30 ML UDC GT SCH ×2 (08:04→17:30)
[2022-08-19] MEDS: ASCORBIC ACID 500 MG TABLET GT SCH ×2 (08:04→21:03)
[2022-08-19] MEDS: ALPRAZOLAM 0.5 MG TABLET GT SCH ×2 (08:04→21:03)
[2022-08-19] MEDS: OMEPRAZOLE 20 MG CAPSULE.DR GT SCH (08:04)
[2022-08-19] MEDS: CHLORHEXIDINE GLUCONATE 15 ML UDC MM SCH ×2 (08:04→21:04)
[2022-08-19] MEDS: ASPIRIN 81 MG TAB.CHEW GT SCH (08:04)
[2022-08-19] MEDS: HYDROGEN PEROXIDE 480 ML BOTTLE TP SCH ×2 (09:08→20:10)
[2022-08-20] VITALS (7 sets, daily range): BP systolic 89–142; BP diastolic 52–93; TEMP 98–98.4; O2SAT 97–100
[2022-08-20] MEDS: ALBUTEROL FS 2.5 MG/3 ML VIAL.NEB NEB SCH ×4 (01:14→19:59)
[2022-08-20] MEDS: IPRATROPIUM NEB FS 0.5 MG/2.5 ML AMPUL.NEB NEB SCH ×4 (01:14→19:59)
[2022-08-20] MEDS: BACLOFEN (10 MG) 10 MG TABLET PEG SCH ×3 (05:30→20:12)
[2022-08-20] MEDS: APIXABAN 5 MG TABLET GT SCH ×2 (05:31→18:18)
[2022-08-20] MEDS: ASCORBIC ACID 500 MG TABLET GT SCH ×2 (08:02→20:12)
[2022-08-20] MEDS: PROSTAT (PYXIS) 30 ML UDC GT SCH ×2 (08:02→16:46)
[2022-08-20] MEDS: VITAMINS A AND D 56.7 GM TUBE TP SCH ×2 (08:02→20:12)
[2022-08-20] MEDS: DOCUSATE SODIUM LIQ 100 MG/10 ML UDC GT SCH ×2 (08:02→20:12)
[2022-08-20] MEDS: OMEPRAZOLE 20 MG CAPSULE.DR GT SCH (08:02)
[2022-08-20] MEDS: CHLORHEXIDINE GLUCONATE 15 ML UDC MM SCH ×2 (08:02→20:12)
[2022-08-20] MEDS: ASPIRIN 81 MG TAB.CHEW GT SCH (08:02)
[2022-08-20] MEDS: ALPRAZOLAM 0.5 MG TABLET GT SCH ×2 (08:02→20:12)
[2022-08-20] MEDS: HYDROGEN PEROXIDE 480 ML BOTTLE TP SCH ×2 (09:19→21:05)
[2022-08-20] MEDS: JEVITY 1.2 CAL 1,000 ML BOTTLE GT PRN (12:21)
[2022-08-21] MEDS: ALBUTEROL FS 2.5 MG/3 ML VIAL.NEB NEB SCH ×2 (01:49→07:46)
[2022-08-21] MEDS: IPRATROPIUM NEB FS 0.5 MG/2.5 ML AMPUL.NEB NEB SCH ×2 (01:49→07:46)
[2022-08-21] MEDS: BACLOFEN (10 MG) 10 MG TABLET PEG SCH (05:06)
[2022-08-21] MEDS: APIXABAN 5 MG TABLET GT SCH (06:53)
[2022-08-21 07:25] VITALS: BP 131/72; TEMP 98.8; O2SAT 97
[2022-08-21] MEDS: LORAZEPAM 1 MG TABLET GT PRN (08:23)
[2022-08-21] MEDS: ASCORBIC ACID 500 MG TABLET GT SCH (08:59)
[2022-08-21] MEDS: PROSTAT (PYXIS) 30 ML UDC GT SCH (08:59)
[2022-08-21] MEDS: ALPRAZOLAM 0.5 MG TABLET GT SCH (08:59)
[2022-08-21] MEDS: DOCUSATE SODIUM LIQ 100 MG/10 ML UDC GT SCH (08:59)
[2022-08-21] MEDS: OMEPRAZOLE 20 MG CAPSULE.DR GT SCH (08:59)
[2022-08-21] MEDS: VITAMINS A AND D 56.7 GM TUBE TP SCH (08:59)
[2022-08-21] MEDS: CHLORHEXIDINE GLUCONATE 15 ML UDC MM SCH (08:59)
[2022-08-21] MEDS: ASPIRIN 81 MG TAB.CHEW GT SCH (08:59)
[2022-08-21] MEDS: ACETAMINOPHEN 650 MG/20 ML UDC- SA PATIENTS-PAIN ONLY GT PRN (09:00)
[2022-08-21] MEDS: HYDROGEN PEROXIDE 480 ML BOTTLE TP SCH (09:16)
[2022-08-21] MEDS ORDERED: LORAZEPAM INJ 2 MG/ML VIAL IM ONE (10:30)
[2022-08-21] MEDS ORDERED: HYDR-4303 GT (11:01)
[2022-08-21] MEDS ORDERED: PETR113O TP (11:01)
[2022-08-21] MEDS ORDERED: DOCU-141 GT (11:01)
[2022-08-21] MEDS ORDERED: MAGN400O6 GT (11:01)
[2022-08-21] MEDS ORDERED: IPRA3AMP23 IH (11:01)
[2022-08-21] MEDS ORDERED: OMEP20CA15 GT (11:01)
[2022-08-21] MEDS ORDERED: LACT10SO3 GT (11:01)
[2022-08-21] MEDS ORDERED: BISA10SU11 RC (11:01)
[2022-08-21] MEDS ORDERED: AMIN30LI2 GT (11:01)
[2022-08-21] MEDS ORDERED: LORA-259 GT (11:01)
[2022-08-21] MEDS ORDERED: ASPI-1169 GT (11:01)
[2022-08-21] MEDS ORDERED: HYDR1SOL TD (11:01)
[2022-08-21] MEDS ORDERED: LANO3.5O3 EACHEYE (11:01)
[2022-08-21] MEDS ORDERED: ALPR0.5T8 GT (11:01)
[2022-08-21] MEDS ORDERED: LACT-209 GT (11:01)
[2022-08-21] MEDS ORDERED: BACL20TA GT (11:01)
[2022-08-21 11:17] LABS: ABG BASE EXCESS -3.2 mmol/L; ABG PCO2 38.6 mmHg (35.0-45.0); ABG PH 7.369 (7.350-7.450); ABG PO2 50.8 mmHg (75.0-100.0); ABG TOTAL HEMOGLOBIN 11.9 G/dL (13.5-18.0); COHb 0.7 % (0.5-1.5); MetHb 0.3 % (0.0-1.5); O2Hb 80.7 % (94.0-97.0); SITE, ABG Right Brachial; VENT MODE, BG AC 18 500 +5 100%
[2022-08-24] MEDS ORDERED: MERO500V23 IV (11:21)
[2022-08-24] MEDS: APIXABAN 5 MG TABLET GT SCH (17:57)
[2022-08-24 18:11] VITALS: BP 129/84; TEMP 97.6; O2SAT 99
[2022-08-24] MEDS: ALBUTEROL FS 2.5 MG/3 ML VIAL.NEB NEB SCH (19:55)
[2022-08-24] MEDS: IPRATROPIUM NEB FS 0.5 MG/2.5 ML AMPUL.NEB NEB SCH (19:55)
[2022-08-24 19:56] VITALS: O2SAT 100
[2022-08-24] MEDS: HYDROGEN PEROXIDE 480 ML BOTTLE TP SCH (19:56)
[2022-08-24 20:00] VITALS: BP 107/75; TEMP 97.7; O2SAT 99
[2022-08-24] MEDS: MEROPENEM 500 MG in IV NS 0.9% 50 ML IV SCH (21:00)
[2022-08-24] MEDS: ALPRAZOLAM 0.5 MG TABLET GT SCH (21:05)
[2022-08-24] MEDS: BACLOFEN (10 MG) 10 MG TABLET PEG SCH (21:05)
[2022-08-24] MEDS: ASCORBIC ACID 500 MG TABLET GT SCH (21:05)
[2022-08-24] MEDS: DOCUSATE SODIUM LIQ 100 MG/10 ML UDC GT SCH (21:05)
[2022-08-24] MEDS: CHLORHEXIDINE GLUCONATE 15 ML UDC MM SCH (21:05)
[2022-08-24 22:44] VITALS: O2SAT 98
[2022-08-25] VITALS (9 sets, daily range): BP systolic 98–129; BP diastolic 65–84; TEMP 97.6–98.1; O2SAT 97–100
[2022-08-25] MEDS: IPRATROPIUM NEB FS 0.5 MG/2.5 ML AMPUL.NEB NEB SCH ×4 (01:35→19:55)
[2022-08-25] MEDS: ALBUTEROL FS 2.5 MG/3 ML VIAL.NEB NEB SCH ×4 (01:35→19:55)
[2022-08-25] MEDS: MEROPENEM 500 MG in IV NS 0.9% 50 ML IV SCH ×3 (05:22→21:00)
[2022-08-25] MEDS: BACLOFEN (10 MG) 10 MG TABLET PEG SCH ×3 (05:43→21:07)
[2022-08-25] MEDS: APIXABAN 5 MG TABLET GT SCH ×2 (05:44→17:32)
[2022-08-25] MEDS: ASCORBIC ACID 500 MG TABLET GT SCH ×2 (08:30→21:07)
[2022-08-25] MEDS: ALPRAZOLAM 0.5 MG TABLET GT SCH ×2 (08:30→21:07)
[2022-08-25] MEDS: CHLORHEXIDINE GLUCONATE 15 ML UDC MM SCH ×2 (08:30→21:07)
[2022-08-25] MEDS: DOCUSATE SODIUM LIQ 100 MG/10 ML UDC GT SCH ×2 (08:30→21:07)
[2022-08-25] MEDS: OMEPRAZOLE 20 MG CAPSULE.DR GT SCH (08:30)
[2022-08-25] MEDS: ASPIRIN 81 MG TAB.CHEW GT SCH (08:30)
[2022-08-25] MEDS: PROSTAT (PYXIS) 30 ML UDC GT SCH ×2 (08:30→16:33)
[2022-08-25] MEDS: HYDROGEN PEROXIDE 480 ML BOTTLE TP SCH ×2 (09:05→19:55)
[2022-08-25] MEDS: JEVITY 1.2 CAL 1,000 ML BOTTLE GT PRN (12:54)
[2022-08-25] MEDS: ACETAMINOPHEN 650 MG/20 ML UDC- SA PATIENTS-PAIN ONLY GT PRN (21:18)
[2022-08-26] VITALS (8 sets, daily range): BP systolic 109–124; BP diastolic 58–76; TEMP 97.5–99; O2SAT 95–100
[2022-08-26] MEDS: LORAZEPAM 1 MG TABLET GT PRN ×2 (00:20→23:43)
[2022-08-26] MEDS: ALBUTEROL FS 2.5 MG/3 ML VIAL.NEB NEB SCH ×4 (01:42→19:36)
[2022-08-26] MEDS: IPRATROPIUM NEB FS 0.5 MG/2.5 ML AMPUL.NEB NEB SCH ×4 (01:42→19:36)
[2022-08-26] MEDS: HYDROCODONE/APAP 5/325MG TABLET GT PRN (03:06)
[2022-08-26] MEDS: BACLOFEN (10 MG) 10 MG TABLET PEG SCH ×3 (05:06→20:17)
[2022-08-26] MEDS: MEROPENEM 500 MG in IV NS 0.9% 50 ML IV SCH ×3 (05:27→21:00)
[2022-08-26] MEDS: APIXABAN 5 MG TABLET GT SCH ×2 (05:32→17:30)
[2022-08-26] MEDS: HYDROGEN PEROXIDE 480 ML BOTTLE TP SCH ×2 (08:14→19:36)
[2022-08-26] MEDS: ALPRAZOLAM 0.5 MG TABLET GT SCH ×2 (09:18→20:17)
[2022-08-26] MEDS: OMEPRAZOLE 20 MG CAPSULE.DR GT SCH (09:18)
[2022-08-26] MEDS: ASPIRIN 81 MG TAB.CHEW GT SCH (09:18)
[2022-08-26] MEDS: DOCUSATE SODIUM LIQ 100 MG/10 ML UDC GT SCH ×2 (09:18→20:17)
[2022-08-26] MEDS: PROSTAT (PYXIS) 30 ML UDC GT SCH ×2 (09:18→17:19)
[2022-08-26] MEDS: ASCORBIC ACID 500 MG TABLET GT SCH ×2 (09:18→20:17)
[2022-08-26] MEDS: CHLORHEXIDINE GLUCONATE 15 ML UDC MM SCH ×2 (09:18→20:17)
[2022-08-26] MEDS ORDERED: DOSING PER PHARMACY-TOBRA INHALATION 1 EA XX PRN (15:30)
[2022-08-26] MEDS: JEVITY 1.2 CAL 1,000 ML BOTTLE GT PRN (17:30)
[2022-08-27] VITALS (7 sets, daily range): BP systolic 97–139; BP diastolic 56–81; TEMP 97.8–99; O2SAT 97–100
[2022-08-27] MEDS: IPRATROPIUM NEB FS 0.5 MG/2.5 ML AMPUL.NEB NEB SCH ×4 (01:36→19:24)
[2022-08-27] MEDS: ALBUTEROL FS 2.5 MG/3 ML VIAL.NEB NEB SCH ×4 (01:36→19:24)
[2022-08-27] MEDS: BACLOFEN (10 MG) 10 MG TABLET PEG SCH ×3 (04:10→20:35)
[2022-08-27] MEDS: HYDROCODONE/APAP 5/325MG TABLET GT PRN ×2 (04:11→18:06)
[2022-08-27] MEDS: MEROPENEM 500 MG in IV NS 0.9% 50 ML IV SCH ×3 (05:26→20:42)
[2022-08-27] MEDS: APIXABAN 5 MG TABLET GT SCH ×2 (05:37→17:49)
[2022-08-27] MEDS: DOCUSATE SODIUM LIQ 100 MG/10 ML UDC GT SCH ×2 (08:49→20:35)
[2022-08-27] MEDS: ASCORBIC ACID 500 MG TABLET GT SCH ×2 (08:49→20:35)
[2022-08-27] MEDS: CHLORHEXIDINE GLUCONATE 15 ML UDC MM SCH ×2 (08:49→20:35)
[2022-08-27] MEDS: OMEPRAZOLE 20 MG CAPSULE.DR GT SCH (08:49)
[2022-08-27] MEDS: PROSTAT (PYXIS) 30 ML UDC GT SCH ×2 (08:49→17:03)
[2022-08-27] MEDS: ALPRAZOLAM 0.5 MG TABLET GT SCH ×2 (08:49→20:35)
[2022-08-27] MEDS: ASPIRIN 81 MG TAB.CHEW GT SCH (08:49)
[2022-08-27] MEDS: HYDROGEN PEROXIDE 480 ML BOTTLE TP SCH ×2 (09:04→19:24)
[2022-08-27] MEDS ORDERED: TOBRAMYCIN 80 MG/2 ML VIAL INH SCH (11:00)
[2022-08-27] MEDS: TOBRAMYCIN 80 MG/2 ML VIAL INH SCH ×2 (12:10→20:30)
[2022-08-27] MEDS: LORAZEPAM 1 MG TABLET GT PRN (13:41)
[2022-08-28] MEDS: ALBUTEROL FS 2.5 MG/3 ML VIAL.NEB NEB SCH ×4 (01:40→19:58)
[2022-08-28] MEDS: IPRATROPIUM NEB FS 0.5 MG/2.5 ML AMPUL.NEB NEB SCH ×4 (01:40→19:58)
[2022-08-28] MEDS: BACLOFEN (10 MG) 10 MG TABLET PEG SCH ×3 (05:38→20:02)
[2022-08-28] MEDS: APIXABAN 5 MG TABLET GT SCH ×2 (05:39→19:04)
[2022-08-28] MEDS: MEROPENEM 500 MG in IV NS 0.9% 50 ML IV SCH ×3 (05:52→21:07)
[2022-08-28 07:54] VITALS: BP 126/65; TEMP 97.7; O2SAT 94
[2022-08-28] MEDS: HYDROGEN PEROXIDE 480 ML BOTTLE TP SCH ×2 (08:49→19:58)
[2022-08-28] MEDS: TOBRAMYCIN 80 MG/2 ML VIAL INH SCH ×3 (08:49→20:15)
[2022-08-28] MEDS: ASPIRIN 81 MG TAB.CHEW GT SCH (09:07)
[2022-08-28] MEDS: DOCUSATE SODIUM LIQ 100 MG/10 ML UDC GT SCH ×2 (09:07→20:02)
[2022-08-28] MEDS: ASCORBIC ACID 500 MG TABLET GT SCH ×2 (09:07→20:02)
[2022-08-28] MEDS: CHLORHEXIDINE GLUCONATE 15 ML UDC MM SCH ×2 (09:07→20:02)
[2022-08-28] MEDS: ALPRAZOLAM 0.5 MG TABLET GT SCH ×2 (09:07→20:02)
[2022-08-28] MEDS: OMEPRAZOLE 20 MG CAPSULE.DR GT SCH (09:07)
[2022-08-28] MEDS: PROSTAT (PYXIS) 30 ML UDC GT SCH ×2 (09:07→17:11)
[2022-08-28] MEDS: JEVITY 1.2 CAL 1,000 ML BOTTLE GT PRN (10:25)
[2022-08-28 16:11] VITALS: O2SAT 97
[2022-08-28 19:07] VITALS: BP 99/55; TEMP 99; O2SAT 94
[2022-08-28 22:07] VITALS: O2SAT 98
[2022-08-28 23:40] VITALS: BP 132/82; TEMP 97.8; O2SAT 96
[2022-08-29] MEDS: HYDROCODONE/APAP 5/325MG TABLET GT PRN (00:09)
[2022-08-29] MEDS: ALBUTEROL FS 2.5 MG/3 ML VIAL.NEB NEB SCH ×4 (02:06→20:12)
[2022-08-29] MEDS: IPRATROPIUM NEB FS 0.5 MG/2.5 ML AMPUL.NEB NEB SCH ×4 (02:06→20:12)
[2022-08-29] MEDS: BACLOFEN (10 MG) 10 MG TABLET PEG SCH ×3 (05:11→20:55)
[2022-08-29] MEDS: MEROPENEM 500 MG in IV NS 0.9% 50 ML IV SCH ×3 (05:27→21:01)
[2022-08-29] MEDS: APIXABAN 5 MG TABLET GT SCH ×2 (06:01→18:31)
[2022-08-29 07:54] VITALS: BP 123/75; TEMP 98.7; O2SAT 98
[2022-08-29] MEDS: TOBRAMYCIN 80 MG/2 ML VIAL INH SCH ×2 (09:00→21:43)
[2022-08-29] MEDS: HYDROGEN PEROXIDE 480 ML BOTTLE TP SCH ×2 (09:00→20:12)
[2022-08-29] MEDS: ASCORBIC ACID 500 MG TABLET GT SCH ×2 (09:06→20:54)
[2022-08-29] MEDS: ASPIRIN 81 MG TAB.CHEW GT SCH (09:06)
[2022-08-29] MEDS: PROSTAT (PYXIS) 30 ML UDC GT SCH ×2 (09:06→17:39)
[2022-08-29] MEDS: OMEPRAZOLE 20 MG CAPSULE.DR GT SCH (09:06)
[2022-08-29] MEDS: DOCUSATE SODIUM LIQ 100 MG/10 ML UDC GT SCH ×2 (09:06→20:54)
[2022-08-29] MEDS: ALPRAZOLAM 0.5 MG TABLET GT SCH ×2 (09:06→20:54)
[2022-08-29] MEDS: CHLORHEXIDINE GLUCONATE 15 ML UDC MM SCH ×2 (09:07→20:55)
[2022-08-29 11:06] VITALS: O2SAT 98
[2022-08-29 11:35] VITALS: BP 106/59; TEMP 97.7; O2SAT 98
[2022-08-29 19:59] VITALS: BP 153/97; TEMP 97.7; O2SAT 99
[2022-08-29 23:19] VITALS: O2SAT 98
[2022-08-30] MEDS: IPRATROPIUM NEB FS 0.5 MG/2.5 ML AMPUL.NEB NEB SCH ×4 (02:24→20:28)
[2022-08-30] MEDS: ALBUTEROL FS 2.5 MG/3 ML VIAL.NEB NEB SCH ×4 (02:24→20:28)
[2022-08-30] MEDS: APIXABAN 5 MG TABLET GT SCH ×2 (05:20→18:40)
[2022-08-30] MEDS: BACLOFEN (10 MG) 10 MG TABLET PEG SCH ×3 (05:20→21:38)
[2022-08-30] MEDS: MEROPENEM 500 MG in IV NS 0.9% 50 ML IV SCH ×3 (05:20→21:38)
[2022-08-30 07:34] VITALS: BP 128/93; TEMP 98; O2SAT 100
[2022-08-30 09:09] VITALS: O2SAT 99
[2022-08-30] MEDS: TOBRAMYCIN 80 MG/2 ML VIAL INH SCH ×2 (09:25→20:28)
[2022-08-30] MEDS: HYDROGEN PEROXIDE 480 ML BOTTLE TP SCH ×2 (09:40→21:00)
[2022-08-30] MEDS: OMEPRAZOLE 20 MG CAPSULE.DR GT SCH (09:49)
[2022-08-30] MEDS: CHLORHEXIDINE GLUCONATE 15 ML UDC MM SCH ×2 (09:49→21:38)
[2022-08-30] MEDS: ASPIRIN 81 MG TAB.CHEW GT SCH (09:49)
[2022-08-30] MEDS: ASCORBIC ACID 500 MG TABLET GT SCH ×2 (09:49→21:38)
[2022-08-30] MEDS: DOCUSATE SODIUM LIQ 100 MG/10 ML UDC GT SCH ×2 (09:49→21:38)
[2022-08-30] MEDS: PROSTAT (PYXIS) 30 ML UDC GT SCH ×2 (09:49→17:06)
[2022-08-30] MEDS: ALPRAZOLAM 0.5 MG TABLET GT SCH ×2 (09:49→21:38)
[2022-08-30 10:33] VITALS: O2SAT 99
[2022-08-30] MEDS: JEVITY 1.2 CAL 1,000 ML BOTTLE GT PRN (18:41)
[2022-08-30 19:01] VITALS: BP 131/87; TEMP 99.1; O2SAT 100
[2022-08-31] MEDS: ALBUTEROL FS 2.5 MG/3 ML VIAL.NEB NEB SCH ×4 (01:22→20:00)
[2022-08-31] MEDS: IPRATROPIUM NEB FS 0.5 MG/2.5 ML AMPUL.NEB NEB SCH ×4 (01:22→20:00)
[2022-08-31] MEDS: MEROPENEM 500 MG in IV NS 0.9% 50 ML IV SCH ×3 (05:00→21:00)
[2022-08-31] MEDS: BACLOFEN (10 MG) 10 MG TABLET PEG SCH ×3 (05:00→21:03)
[2022-08-31] MEDS: APIXABAN 5 MG TABLET GT SCH ×2 (06:05→17:43)
[2022-08-31 06:49] VITALS: O2SAT 98
[2022-08-31 08:00] VITALS: BP 124/71; TEMP 97.6; O2SAT 96
[2022-08-31] MEDS: TOBRAMYCIN 80 MG/2 ML VIAL INH SCH ×2 (09:05→20:00)
[2022-08-31] MEDS: HYDROGEN PEROXIDE 480 ML BOTTLE TP SCH ×2 (09:06→20:00)
[2022-08-31] MEDS: OMEPRAZOLE 20 MG CAPSULE.DR GT SCH (09:12)
[2022-08-31] MEDS: DOCUSATE SODIUM LIQ 100 MG/10 ML UDC GT SCH ×2 (09:12→21:03)
[2022-08-31] MEDS: ALPRAZOLAM 0.5 MG TABLET GT SCH ×2 (09:12→21:03)
[2022-08-31] MEDS: ASCORBIC ACID 500 MG TABLET GT SCH ×2 (09:12→21:03)
[2022-08-31] MEDS: PROSTAT (PYXIS) 30 ML UDC GT SCH ×2 (09:12→16:45)
[2022-08-31] MEDS: ASPIRIN 81 MG TAB.CHEW GT SCH (09:12)
[2022-08-31] MEDS: CHLORHEXIDINE GLUCONATE 15 ML UDC MM SCH ×2 (09:12→21:03)
[2022-08-31 10:43] VITALS: O2SAT 99
[2022-08-31 12:00] VITALS: BP 124/76; TEMP 98.4; O2SAT 98
[2022-08-31 19:13] VITALS: BP 131/77; TEMP 99; O2SAT 97
[2022-08-31 21:03] LABS: HIV-1 p24 ANTIGEN NON REACTIVE (NONREACTIVE); HIV-1/2 ANTIBODY NON REACTIVE (NONREACTIVE)
[2022-08-31 23:42] VITALS: O2SAT 99
[2022-09-01] MEDS: ACETAMINOPHEN 650 MG/20 ML UDC- SA PATIENTS-PAIN ONLY GT PRN ×2 (01:42→11:09)
[2022-09-01] MEDS: IPRATROPIUM NEB FS 0.5 MG/2.5 ML AMPUL.NEB NEB SCH ×4 (01:58→19:01)
[2022-09-01] MEDS: ALBUTEROL FS 2.5 MG/3 ML VIAL.NEB NEB SCH ×4 (01:58→19:01)
[2022-09-01] MEDS: MEROPENEM 500 MG in IV NS 0.9% 50 ML IV SCH ×3 (05:00→21:00)
[2022-09-01] MEDS: BACLOFEN (10 MG) 10 MG TABLET PEG SCH ×3 (05:42→21:15)
[2022-09-01] MEDS: APIXABAN 5 MG TABLET GT SCH ×2 (05:43→17:37)
[2022-09-01 07:05] VITALS: BP 148/93; TEMP 97.8; O2SAT 95
[2022-09-01] MEDS: TOBRAMYCIN 80 MG/2 ML VIAL INH SCH ×2 (08:43→21:25)
[2022-09-01] MEDS: DOCUSATE SODIUM LIQ 100 MG/10 ML UDC GT SCH ×2 (08:44→21:14)
[2022-09-01] MEDS: ASCORBIC ACID 500 MG TABLET GT SCH ×2 (08:44→21:14)
[2022-09-01] MEDS: ASPIRIN 81 MG TAB.CHEW GT SCH (08:44)
[2022-09-01] MEDS: ALPRAZOLAM 0.5 MG TABLET GT SCH ×2 (08:44→21:14)
[2022-09-01] MEDS: PROSTAT (PYXIS) 30 ML UDC GT SCH ×2 (08:44→16:34)
[2022-09-01] MEDS: OMEPRAZOLE 20 MG CAPSULE.DR GT SCH (08:44)
[2022-09-01] MEDS: CHLORHEXIDINE GLUCONATE 15 ML UDC MM SCH ×2 (08:45→21:15)
[2022-09-01] MEDS: HYDROGEN PEROXIDE 480 ML BOTTLE TP SCH ×2 (08:55→20:57)
[2022-09-01 11:51] VITALS: BP 132/97; TEMP 97.9; O2SAT 97
[2022-09-01 13:07] LABS: HEPATITIS B SURFACE AB Reactive (.)
[2022-09-01] MEDS: JEVITY 1.2 CAL 1,000 ML BOTTLE GT PRN (17:36)
[2022-09-01 19:51] VITALS: BP 127/68; TEMP 99.1; O2SAT 98
[2022-09-01 22:37] VITALS: O2SAT 99
[2022-09-02] MEDS: HYDROCODONE/APAP 5/325MG TABLET GT PRN (01:12)
[2022-09-02] MEDS: IPRATROPIUM NEB FS 0.5 MG/2.5 ML AMPUL.NEB NEB SCH ×4 (02:05→18:48)
[2022-09-02] MEDS: ALBUTEROL FS 2.5 MG/3 ML VIAL.NEB NEB SCH ×4 (02:05→18:48)
[2022-09-02] MEDS: MEROPENEM 500 MG in IV NS 0.9% 50 ML IV SCH ×3 (05:00→21:00)
[2022-09-02] MEDS: BACLOFEN (10 MG) 10 MG TABLET PEG SCH ×3 (05:44→20:27)
[2022-09-02] MEDS: APIXABAN 5 MG TABLET GT SCH ×2 (05:44→17:33)
[2022-09-02 07:17] VITALS: BP 121/76; TEMP 98.5; O2SAT 96
[2022-09-02] MEDS: PROSTAT (PYXIS) 30 ML UDC GT SCH ×2 (08:37→16:12)
[2022-09-02] MEDS: ALPRAZOLAM 0.5 MG TABLET GT SCH ×2 (08:37→20:26)
[2022-09-02] MEDS: ASPIRIN 81 MG TAB.CHEW GT SCH (08:37)
[2022-09-02] MEDS: CHLORHEXIDINE GLUCONATE 15 ML UDC MM SCH ×2 (08:37→20:27)
[2022-09-02] MEDS: OMEPRAZOLE 20 MG CAPSULE.DR GT SCH (08:37)
[2022-09-02] MEDS: DOCUSATE SODIUM LIQ 100 MG/10 ML UDC GT SCH ×2 (08:37→20:26)
[2022-09-02] MEDS: ASCORBIC ACID 500 MG TABLET GT SCH ×2 (08:37→20:26)
[2022-09-02] MEDS: TOBRAMYCIN 80 MG/2 ML VIAL INH SCH ×2 (08:52→22:02)
[2022-09-02] MEDS: HYDROGEN PEROXIDE 480 ML BOTTLE TP SCH ×2 (08:53→20:30)
[2022-09-02 11:05] VITALS: BP 132/86; TEMP 97.8; O2SAT 98
[2022-09-02 11:06] VITALS: O2SAT 99
[2022-09-02] MEDS: ACETAMINOPHEN 650 MG/20 ML UDC- SA PATIENTS-PAIN ONLY GT PRN (12:09)
[2022-09-02 19:29] VITALS: BP 128/81; TEMP 98.3; O2SAT 97
[2022-09-02 23:07] VITALS: O2SAT 100
[2022-09-03 01:00] VITALS: BP 130/80; TEMP 98.2; O2SAT 99
[2022-09-03] MEDS: IPRATROPIUM NEB FS 0.5 MG/2.5 ML AMPUL.NEB NEB SCH ×4 (01:26→18:32)
[2022-09-03] MEDS: ALBUTEROL FS 2.5 MG/3 ML VIAL.NEB NEB SCH ×4 (01:26→18:32)
[2022-09-03] MEDS: BACLOFEN (10 MG) 10 MG TABLET PEG SCH ×3 (05:26→20:16)
[2022-09-03] MEDS: JEVITY 1.2 CAL 1,000 ML BOTTLE GT PRN (05:26)
[2022-09-03] MEDS: APIXABAN 5 MG TABLET GT SCH ×2 (05:36→17:41)
[2022-09-03] MEDS: MEROPENEM 500 MG in IV NS 0.9% 50 ML IV SCH ×3 (05:48→20:01)
[2022-09-03 07:26] VITALS: BP 125/96; TEMP 98.8; O2SAT 98
[2022-09-03] MEDS: DOCUSATE SODIUM LIQ 100 MG/10 ML UDC GT SCH ×2 (08:42→20:16)
[2022-09-03] MEDS: CHLORHEXIDINE GLUCONATE 15 ML UDC MM SCH ×2 (08:42→20:16)
[2022-09-03] MEDS: PROSTAT (PYXIS) 30 ML UDC GT SCH ×2 (08:42→17:40)
[2022-09-03] MEDS: ALPRAZOLAM 0.5 MG TABLET GT SCH ×2 (08:42→21:04)
[2022-09-03] MEDS: ASPIRIN 81 MG TAB.CHEW GT SCH (08:42)
[2022-09-03] MEDS: ASCORBIC ACID 500 MG TABLET GT SCH ×2 (08:42→20:16)
[2022-09-03] MEDS: OMEPRAZOLE 20 MG CAPSULE.DR GT SCH (08:42)
[2022-09-03] MEDS: HYDROGEN PEROXIDE 480 ML BOTTLE TP SCH ×2 (09:48→20:21)
[2022-09-03] MEDS: TOBRAMYCIN 80 MG/2 ML VIAL INH SCH ×2 (09:48→20:33)
[2022-09-03 10:14] VITALS: O2SAT 98
[2022-09-03] MEDS: LORAZEPAM 1 MG TABLET GT PRN ×3 (10:47→18:01)
[2022-09-03 12:12] VITALS: BP 129/78; TEMP 98; O2SAT 98
[2022-09-03] MEDS: ACETAMINOPHEN 650 MG/20 ML UDC- SA PATIENTS-PAIN ONLY GT PRN (17:41)
[2022-09-03] MEDS: HYDROCODONE/APAP 5/325MG TABLET GT PRN (19:00)
[2022-09-03 19:34] VITALS: BP 135/71; TEMP 98.6; O2SAT 94
[2022-09-03 22:07] VITALS: O2SAT 100
[2022-09-04] MEDS: IPRATROPIUM NEB FS 0.5 MG/2.5 ML AMPUL.NEB NEB SCH ×4 (00:37→18:40)
[2022-09-04] MEDS: ALBUTEROL FS 2.5 MG/3 ML VIAL.NEB NEB SCH ×4 (00:37→18:40)
[2022-09-04] MEDS: BACLOFEN (10 MG) 10 MG TABLET PEG SCH ×3 (05:10→20:58)
[2022-09-04] MEDS: MEROPENEM 500 MG in IV NS 0.9% 50 ML IV SCH (05:19)
[2022-09-04] MEDS: APIXABAN 5 MG TABLET GT SCH ×2 (05:31→17:51)
[2022-09-04 07:02] VITALS: BP 119/78; TEMP 97.6; O2SAT 99
[2022-09-04] MEDS: ALPRAZOLAM 0.5 MG TABLET GT SCH ×2 (08:23→20:50)
[2022-09-04] MEDS: ASPIRIN 81 MG TAB.CHEW GT SCH (08:23)
[2022-09-04] MEDS: DOCUSATE SODIUM LIQ 100 MG/10 ML UDC GT SCH ×2 (08:23→20:50)
[2022-09-04] MEDS: CHLORHEXIDINE GLUCONATE 15 ML UDC MM SCH ×2 (08:23→20:58)
[2022-09-04] MEDS: OMEPRAZOLE 20 MG CAPSULE.DR GT SCH (08:23)
[2022-09-04] MEDS: PROSTAT (PYXIS) 30 ML UDC GT SCH ×2 (08:23→16:20)
[2022-09-04] MEDS: ASCORBIC ACID 500 MG TABLET GT SCH ×2 (08:23→20:50)
[2022-09-04] MEDS: ACETAMINOPHEN 650 MG/20 ML UDC- SA PATIENTS-PAIN ONLY GT PRN ×2 (08:24→16:58)
[2022-09-04] MEDS: TOBRAMYCIN 80 MG/2 ML VIAL INH SCH ×2 (09:28→20:23)
[2022-09-04] MEDS: HYDROGEN PEROXIDE 480 ML BOTTLE TP SCH ×2 (09:29→20:17)
[2022-09-04 10:41] VITALS: O2SAT 95
[2022-09-04 11:57] VITALS: BP 138/96; TEMP 97.5; O2SAT 95
[2022-09-04] MEDS: LORAZEPAM 1 MG TABLET GT PRN (12:54)
[2022-09-04] MEDS: JEVITY 1.2 CAL 1,000 ML BOTTLE GT PRN (16:57)
[2022-09-04 19:48] VITALS: BP 148/91; TEMP 97.6; O2SAT 95
[2022-09-04 23:42] VITALS: O2SAT 100
[2022-09-05] MEDS: ALBUTEROL FS 2.5 MG/3 ML VIAL.NEB NEB SCH ×4 (00:45→20:21)
[2022-09-05] MEDS: IPRATROPIUM NEB FS 0.5 MG/2.5 ML AMPUL.NEB NEB SCH ×4 (00:45→20:21)
[2022-09-05] MEDS: BACLOFEN (10 MG) 10 MG TABLET PEG SCH ×3 (05:00→21:48)
[2022-09-05] MEDS: APIXABAN 5 MG TABLET GT SCH ×2 (06:18→17:11)
[2022-09-05 08:17] VITALS: BP 136/83; TEMP 97.6; O2SAT 98
[2022-09-05] MEDS: ASPIRIN 81 MG TAB.CHEW GT SCH (08:21)
[2022-09-05] MEDS: OMEPRAZOLE 20 MG CAPSULE.DR GT SCH (08:22)
[2022-09-05] MEDS: CHLORHEXIDINE GLUCONATE 15 ML UDC MM SCH ×2 (08:22→21:48)
[2022-09-05] MEDS: ALPRAZOLAM 0.5 MG TABLET GT SCH ×2 (08:22→21:48)
[2022-09-05] MEDS: PROSTAT (PYXIS) 30 ML UDC GT SCH ×2 (08:22→17:11)
[2022-09-05] MEDS: DOCUSATE SODIUM LIQ 100 MG/10 ML UDC GT SCH ×2 (08:22→21:48)
[2022-09-05] MEDS: ASCORBIC ACID 500 MG TABLET GT SCH ×2 (08:22→21:48)
[2022-09-05] MEDS: TOBRAMYCIN 80 MG/2 ML VIAL INH SCH ×2 (09:08→21:48)
[2022-09-05] MEDS: HYDROGEN PEROXIDE 480 ML BOTTLE TP SCH ×2 (09:08→20:21)
[2022-09-05 10:07] VITALS: O2SAT 95
[2022-09-05 19:47] VITALS: BP 125/83; TEMP 98.3; O2SAT 98
[2022-09-05 23:31] VITALS: O2SAT 100
[2022-09-06] MEDS: ALBUTEROL FS 2.5 MG/3 ML VIAL.NEB NEB SCH ×4 (01:56→19:47)
[2022-09-06] MEDS: IPRATROPIUM NEB FS 0.5 MG/2.5 ML AMPUL.NEB NEB SCH ×4 (01:56→19:47)
[2022-09-06] MEDS: APIXABAN 5 MG TABLET GT SCH ×2 (05:56→18:33)
[2022-09-06] MEDS: BACLOFEN (10 MG) 10 MG TABLET PEG SCH ×3 (05:56→20:51)
[2022-09-06] MEDS: HYDROCODONE/APAP 5/325MG TABLET GT PRN (07:59)
[2022-09-06 08:03] VITALS: BP 160/97; TEMP 98.9; O2SAT 100
[2022-09-06] MEDS: ASPIRIN 81 MG TAB.CHEW GT SCH (08:14)
[2022-09-06] MEDS: DOCUSATE SODIUM LIQ 100 MG/10 ML UDC GT SCH ×2 (08:14→20:51)
[2022-09-06] MEDS: PROSTAT (PYXIS) 30 ML UDC GT SCH ×2 (08:14→16:43)
[2022-09-06] MEDS: OMEPRAZOLE 20 MG CAPSULE.DR GT SCH (08:14)
[2022-09-06] MEDS: CHLORHEXIDINE GLUCONATE 15 ML UDC MM SCH ×2 (08:15→20:51)
[2022-09-06] MEDS: ALPRAZOLAM 0.5 MG TABLET GT SCH ×2 (08:15→20:51)
[2022-09-06] MEDS: ASCORBIC ACID 500 MG TABLET GT SCH ×2 (08:15→20:51)
[2022-09-06] MEDS: TOBRAMYCIN 80 MG/2 ML VIAL INH SCH ×2 (08:15→20:51)
[2022-09-06] MEDS: HYDROGEN PEROXIDE 480 ML BOTTLE TP SCH ×2 (09:25→19:48)
[2022-09-06] MEDS: JEVITY 1.2 CAL 1,000 ML BOTTLE GT PRN (11:00)
[2022-09-06 11:27] VITALS: O2SAT 100
[2022-09-06 19:00] VITALS: BP 127/80; TEMP 98; O2SAT 100
[2022-09-06 22:28] VITALS: O2SAT 100
[2022-09-07] MEDS: IPRATROPIUM NEB FS 0.5 MG/2.5 ML AMPUL.NEB NEB SCH ×4 (02:05→19:50)
[2022-09-07] MEDS: ALBUTEROL FS 2.5 MG/3 ML VIAL.NEB NEB SCH ×4 (02:05→19:50)
[2022-09-07] MEDS: APIXABAN 5 MG TABLET GT SCH ×2 (05:44→17:37)
[2022-09-07] MEDS: BACLOFEN (10 MG) 10 MG TABLET PEG SCH ×3 (05:44→21:13)
[2022-09-07 07:06] VITALS: BP 128/70; TEMP 97.7; O2SAT 98
[2022-09-07] MEDS: DOCUSATE SODIUM LIQ 100 MG/10 ML UDC GT SCH ×2 (08:44→21:13)
[2022-09-07] MEDS: ASCORBIC ACID 500 MG TABLET GT SCH ×2 (08:44→21:13)
[2022-09-07] MEDS: CHLORHEXIDINE GLUCONATE 15 ML UDC MM SCH ×2 (08:44→21:13)
[2022-09-07] MEDS: PROSTAT (PYXIS) 30 ML UDC GT SCH ×2 (08:44→16:37)
[2022-09-07] MEDS: ASPIRIN 81 MG TAB.CHEW GT SCH (08:44)
[2022-09-07] MEDS: ALPRAZOLAM 0.5 MG TABLET GT SCH ×2 (08:44→21:13)
[2022-09-07] MEDS: OMEPRAZOLE 20 MG CAPSULE.DR GT SCH (08:44)
[2022-09-07] MEDS: TOBRAMYCIN 80 MG/2 ML VIAL INH SCH ×2 (09:21→20:09)
[2022-09-07] MEDS: HYDROGEN PEROXIDE 480 ML BOTTLE TP SCH ×2 (09:21→19:50)
[2022-09-07] MEDS: JEVITY 1.2 CAL 1,000 ML BOTTLE GT PRN (12:32)
[2022-09-07 16:51] VITALS: O2SAT 98
[2022-09-07 19:33] VITALS: BP 106/72; TEMP 97.7; O2SAT 98
[2022-09-07 22:39] VITALS: O2SAT 99
[2022-09-08 00:22] VITALS: BP 132/78; TEMP 97.8; O2SAT 100
[2022-09-08] MEDS: ALBUTEROL FS 2.5 MG/3 ML VIAL.NEB NEB SCH ×4 (02:02→20:28)
[2022-09-08] MEDS: IPRATROPIUM NEB FS 0.5 MG/2.5 ML AMPUL.NEB NEB SCH ×4 (02:02→20:28)
[2022-09-08] MEDS: BACLOFEN (10 MG) 10 MG TABLET PEG SCH ×3 (05:36→20:21)
[2022-09-08] MEDS: APIXABAN 5 MG TABLET GT SCH ×2 (05:36→17:59)
[2022-09-08 07:17] VITALS: BP 134/75; TEMP 98.2; O2SAT 96
[2022-09-08] MEDS: HYDROGEN PEROXIDE 480 ML BOTTLE TP SCH ×2 (08:34→20:28)
[2022-09-08] MEDS: TOBRAMYCIN 80 MG/2 ML VIAL INH SCH ×2 (08:53→20:28)
[2022-09-08] MEDS: PROSTAT (PYXIS) 30 ML UDC GT SCH ×2 (08:59→17:59)
[2022-09-08] MEDS: OMEPRAZOLE 20 MG CAPSULE.DR GT SCH (08:59)
[2022-09-08] MEDS: ASPIRIN 81 MG TAB.CHEW GT SCH (08:59)
[2022-09-08] MEDS: DOCUSATE SODIUM LIQ 100 MG/10 ML UDC GT SCH ×2 (08:59→20:21)
[2022-09-08] MEDS: ALPRAZOLAM 0.5 MG TABLET GT SCH ×2 (08:59→20:21)
[2022-09-08] MEDS: ASCORBIC ACID 500 MG TABLET GT SCH ×2 (08:59→20:21)
[2022-09-08] MEDS: CHLORHEXIDINE GLUCONATE 15 ML UDC MM SCH ×2 (08:59→20:21)
[2022-09-08 12:18] VITALS: BP 104/71; TEMP 97.6; O2SAT 97
[2022-09-08 19:34] VITALS: BP 104/75; TEMP 97.5; O2SAT 97
[2022-09-08 23:37] VITALS: BP 120/75; TEMP 97.8; O2SAT 95
[2022-09-09] VITALS (7 sets, daily range): BP systolic 92–128; BP diastolic 55–100; TEMP 97.9–98.7; O2SAT 96–100
[2022-09-09] MEDS: LORAZEPAM 1 MG TABLET GT PRN (00:30)
[2022-09-09] MEDS: IPRATROPIUM NEB FS 0.5 MG/2.5 ML AMPUL.NEB NEB SCH ×4 (02:12→18:51)
[2022-09-09] MEDS: ALBUTEROL FS 2.5 MG/3 ML VIAL.NEB NEB SCH ×4 (02:12→18:51)
[2022-09-09] MEDS: BACLOFEN (10 MG) 10 MG TABLET PEG SCH ×3 (05:26→21:08)
[2022-09-09] MEDS: APIXABAN 5 MG TABLET GT SCH ×2 (06:34→17:47)
[2022-09-09] MEDS: ASPIRIN 81 MG TAB.CHEW GT SCH (08:23)
[2022-09-09] MEDS: DOCUSATE SODIUM LIQ 100 MG/10 ML UDC GT SCH ×2 (08:24→21:08)
[2022-09-09] MEDS: PROSTAT (PYXIS) 30 ML UDC GT SCH ×2 (08:25→17:47)
[2022-09-09] MEDS: OMEPRAZOLE 20 MG CAPSULE.DR GT SCH (08:25)
[2022-09-09] MEDS: ASCORBIC ACID 500 MG TABLET GT SCH ×2 (08:25→21:08)
[2022-09-09] MEDS: ALPRAZOLAM 0.5 MG TABLET GT SCH ×2 (08:26→21:08)
[2022-09-09] MEDS: CHLORHEXIDINE GLUCONATE 15 ML UDC MM SCH ×2 (08:26→21:08)
[2022-09-09] MEDS: TOBRAMYCIN 80 MG/2 ML VIAL INH SCH (09:13)
[2022-09-09] MEDS: HYDROGEN PEROXIDE 480 ML BOTTLE TP SCH ×2 (09:28→20:23)
[2022-09-09] MEDS: HYDROCODONE/APAP 5/325MG TABLET GT PRN (16:10)
[2022-09-10] MEDS: ALBUTEROL FS 2.5 MG/3 ML VIAL.NEB NEB SCH ×4 (00:45→20:00)
[2022-09-10] MEDS: IPRATROPIUM NEB FS 0.5 MG/2.5 ML AMPUL.NEB NEB SCH ×4 (00:45→20:00)
[2022-09-10] MEDS: APIXABAN 5 MG TABLET GT SCH ×2 (05:43→17:34)
[2022-09-10] MEDS: BACLOFEN (10 MG) 10 MG TABLET PEG SCH ×3 (05:43→20:29)
[2022-09-10] MEDS: JEVITY 1.2 CAL 1,000 ML BOTTLE GT PRN (05:44)
[2022-09-10] MEDS: ACETAMINOPHEN 650 MG/20 ML UDC- SA PATIENTS-PAIN ONLY GT PRN (06:53)
[2022-09-10 07:30] VITALS: BP 126/61; TEMP 98.6; O2SAT 98
[2022-09-10] MEDS: OMEPRAZOLE 20 MG CAPSULE.DR GT SCH (08:16)
[2022-09-10] MEDS: PROSTAT (PYXIS) 30 ML UDC GT SCH ×2 (08:16→16:43)
[2022-09-10] MEDS: ASPIRIN 81 MG TAB.CHEW GT SCH (08:16)
[2022-09-10] MEDS: DOCUSATE SODIUM LIQ 100 MG/10 ML UDC GT SCH ×2 (08:16→20:29)
[2022-09-10] MEDS: CHLORHEXIDINE GLUCONATE 15 ML UDC MM SCH ×2 (08:17→20:29)
[2022-09-10] MEDS: ALPRAZOLAM 0.5 MG TABLET GT SCH ×2 (08:17→20:29)
[2022-09-10] MEDS: ASCORBIC ACID 500 MG TABLET GT SCH ×2 (08:17→20:29)
[2022-09-10] MEDS: HYDROGEN PEROXIDE 480 ML BOTTLE TP SCH ×2 (09:05→20:00)
[2022-09-10 11:49] VITALS: BP 116/92; TEMP 98.4; O2SAT 99
[2022-09-10 12:05] VITALS: O2SAT 96
[2022-09-10] MEDS: LORAZEPAM 1 MG TABLET GT PRN (15:07)
[2022-09-10 19:18] VITALS: BP 140/76; TEMP 99; O2SAT 100
[2022-09-10 22:23] VITALS: O2SAT 97
[2022-09-11 00:12] VITALS: BP 128/82; TEMP 92; O2SAT 100
[2022-09-11] MEDS: HYDROCODONE/APAP 5/325MG TABLET GT PRN (01:43)
[2022-09-11] MEDS: IPRATROPIUM NEB FS 0.5 MG/2.5 ML AMPUL.NEB NEB SCH ×4 (01:57→19:37)
[2022-09-11] MEDS: ALBUTEROL FS 2.5 MG/3 ML VIAL.NEB NEB SCH ×4 (01:57→19:37)
[2022-09-11] MEDS: BACLOFEN (10 MG) 10 MG TABLET PEG SCH ×3 (05:46→20:22)
[2022-09-11] MEDS: JEVITY 1.2 CAL 1,000 ML BOTTLE GT PRN (05:46)
[2022-09-11] MEDS: APIXABAN 5 MG TABLET GT SCH ×2 (05:46→17:48)
[2022-09-11 08:08] VITALS: BP 127/74; TEMP 97.7; O2SAT 98
[2022-09-11] MEDS: HYDROGEN PEROXIDE 480 ML BOTTLE TP SCH ×2 (09:09→19:37)
[2022-09-11] MEDS: PROSTAT (PYXIS) 30 ML UDC GT SCH ×2 (09:52→17:47)
[2022-09-11] MEDS: CHLORHEXIDINE GLUCONATE 15 ML UDC MM SCH ×2 (09:52→20:22)
[2022-09-11] MEDS: ASPIRIN 81 MG TAB.CHEW GT SCH (09:52)
[2022-09-11] MEDS: ALPRAZOLAM 0.5 MG TABLET GT SCH ×2 (09:52→20:22)
[2022-09-11] MEDS: DOCUSATE SODIUM LIQ 100 MG/10 ML UDC GT SCH ×2 (09:52→20:21)
[2022-09-11] MEDS: OMEPRAZOLE 20 MG CAPSULE.DR GT SCH (09:52)
[2022-09-11] MEDS: ASCORBIC ACID 500 MG TABLET GT SCH ×2 (09:52→20:22)
[2022-09-11 10:35] VITALS: O2SAT 98
[2022-09-11 11:58] VITALS: BP 136/82; TEMP 98.2; O2SAT 98
[2022-09-11 19:49] VITALS: BP 129/86; TEMP 97.8; O2SAT 99
[2022-09-11 22:18] VITALS: O2SAT 99
[2022-09-12 00:49] VITALS: BP 116/73; TEMP 97.6; O2SAT 98
[2022-09-12] MEDS: IPRATROPIUM NEB FS 0.5 MG/2.5 ML AMPUL.NEB NEB SCH ×4 (01:59→18:40)
[2022-09-12] MEDS: ALBUTEROL FS 2.5 MG/3 ML VIAL.NEB NEB SCH ×4 (01:59→18:40)
[2022-09-12] MEDS: JEVITY 1.2 CAL 1,000 ML BOTTLE GT PRN (04:16)
[2022-09-12] MEDS: BACLOFEN (10 MG) 10 MG TABLET PEG SCH ×3 (04:17→20:24)
[2022-09-12] MEDS: APIXABAN 5 MG TABLET GT SCH ×2 (05:15→17:47)
[2022-09-12 07:12] VITALS: BP 136/80; TEMP 98.6; O2SAT 98
[2022-09-12] MEDS: OMEPRAZOLE 20 MG CAPSULE.DR GT SCH (09:12)
[2022-09-12] MEDS: DOCUSATE SODIUM LIQ 100 MG/10 ML UDC GT SCH ×2 (09:12→20:24)
[2022-09-12] MEDS: ASPIRIN 81 MG TAB.CHEW GT SCH (09:12)
[2022-09-12] MEDS: CHLORHEXIDINE GLUCONATE 15 ML UDC MM SCH ×2 (09:12→20:24)
[2022-09-12] MEDS: ALPRAZOLAM 0.5 MG TABLET GT SCH ×2 (09:12→20:24)
[2022-09-12] MEDS: ASCORBIC ACID 500 MG TABLET GT SCH ×2 (09:12→20:24)
[2022-09-12] MEDS: PROSTAT (PYXIS) 30 ML UDC GT SCH ×2 (09:12→17:47)
[2022-09-12] MEDS: HYDROGEN PEROXIDE 480 ML BOTTLE TP SCH ×2 (09:36→20:36)
[2022-09-12 10:56] VITALS: BP 131/71; TEMP 98.1; O2SAT 98
[2022-09-12 11:01] VITALS: O2SAT 98
[2022-09-12 20:04] VITALS: BP 117/80; TEMP 98.4; O2SAT 98
[2022-09-12 23:34] VITALS: O2SAT 96
[2022-09-13] MEDS: ALBUTEROL FS 2.5 MG/3 ML VIAL.NEB NEB SCH ×4 (00:41→18:47)
[2022-09-13] MEDS: IPRATROPIUM NEB FS 0.5 MG/2.5 ML AMPUL.NEB NEB SCH ×4 (00:41→18:47)
[2022-09-13 01:16] VITALS: BP 138/73; TEMP 98.1; O2SAT 97
[2022-09-13] MEDS: JEVITY 1.2 CAL 1,000 ML BOTTLE GT PRN (03:29)
[2022-09-13] MEDS: LORAZEPAM 1 MG TABLET GT PRN (03:30)
[2022-09-13] MEDS: APIXABAN 5 MG TABLET GT SCH ×2 (05:27→17:41)
[2022-09-13] MEDS: BACLOFEN (10 MG) 10 MG TABLET PEG SCH ×3 (05:27→21:12)
[2022-09-13 08:00] VITALS: BP 129/86; TEMP 98.3; O2SAT 100
[2022-09-13] MEDS: CHLORHEXIDINE GLUCONATE 15 ML UDC MM SCH ×2 (09:30→21:12)
[2022-09-13] MEDS: ASPIRIN 81 MG TAB.CHEW GT SCH (09:30)
[2022-09-13] MEDS: DOCUSATE SODIUM LIQ 100 MG/10 ML UDC GT SCH ×2 (09:30→21:12)
[2022-09-13] MEDS: ASCORBIC ACID 500 MG TABLET GT SCH ×2 (09:30→21:12)
[2022-09-13] MEDS: PROSTAT (PYXIS) 30 ML UDC GT SCH ×2 (09:30→17:41)
[2022-09-13] MEDS: ALPRAZOLAM 0.5 MG TABLET GT SCH ×2 (09:30→21:12)
[2022-09-13] MEDS: OMEPRAZOLE 20 MG CAPSULE.DR GT SCH (09:30)
[2022-09-13] MEDS: HYDROGEN PEROXIDE 480 ML BOTTLE TP SCH ×2 (09:54→20:26)
[2022-09-13 11:56] VITALS: O2SAT 98
[2022-09-13 19:54] VITALS: BP 137/76; TEMP 98; O2SAT 97
[2022-09-13 23:57] VITALS: O2SAT 98
[2022-09-14] MEDS: ALBUTEROL FS 2.5 MG/3 ML VIAL.NEB NEB SCH ×4 (01:49→20:05)
[2022-09-14] MEDS: IPRATROPIUM NEB FS 0.5 MG/2.5 ML AMPUL.NEB NEB SCH ×4 (01:49→20:05)
[2022-09-14] MEDS: BACLOFEN (10 MG) 10 MG TABLET PEG SCH ×3 (05:32→21:10)
[2022-09-14] MEDS: JEVITY 1.2 CAL 1,000 ML BOTTLE GT PRN (05:33)
[2022-09-14] MEDS: APIXABAN 5 MG TABLET GT SCH ×2 (05:33→17:58)
[2022-09-14 07:27] VITALS: BP 108/64; TEMP 98.8; O2SAT 96
[2022-09-14] MEDS: OMEPRAZOLE 20 MG CAPSULE.DR GT SCH (08:45)
[2022-09-14] MEDS: ASPIRIN 81 MG TAB.CHEW GT SCH (08:45)
[2022-09-14] MEDS: ASCORBIC ACID 500 MG TABLET GT SCH ×2 (08:45→21:10)
[2022-09-14] MEDS: PROSTAT (PYXIS) 30 ML UDC GT SCH ×2 (08:45→16:32)
[2022-09-14] MEDS: DOCUSATE SODIUM LIQ 100 MG/10 ML UDC GT SCH ×2 (08:45→21:10)
[2022-09-14] MEDS: ALPRAZOLAM 0.5 MG TABLET GT SCH ×2 (08:46→21:10)
[2022-09-14] MEDS: CHLORHEXIDINE GLUCONATE 15 ML UDC MM SCH ×2 (08:46→21:10)
[2022-09-14] MEDS: HYDROGEN PEROXIDE 480 ML BOTTLE TP SCH ×2 (09:19→20:05)
[2022-09-14 11:15] VITALS: O2SAT 97
[2022-09-14 11:27] VITALS: BP 131/79; TEMP 98; O2SAT 96
[2022-09-14] MEDS: ACETAMINOPHEN 650 MG/20 ML UDC- SA PATIENTS-PAIN ONLY GT PRN (16:43)
[2022-09-14 19:49] VITALS: BP 99/66; TEMP 98.2; O2SAT 100
[2022-09-14 22:13] VITALS: O2SAT 99
[2022-09-15] MEDS: LORAZEPAM 1 MG TABLET GT PRN (01:57)
[2022-09-15] MEDS: ALBUTEROL FS 2.5 MG/3 ML VIAL.NEB NEB SCH ×4 (02:02→20:00)
[2022-09-15] MEDS: IPRATROPIUM NEB FS 0.5 MG/2.5 ML AMPUL.NEB NEB SCH ×4 (02:02→20:00)
[2022-09-15] MEDS: APIXABAN 5 MG TABLET GT SCH ×2 (05:45→17:42)
[2022-09-15] MEDS: BACLOFEN (10 MG) 10 MG TABLET PEG SCH ×3 (05:45→20:51)
[2022-09-15 07:32] VITALS: BP 118/80; TEMP 97.7; O2SAT 98
[2022-09-15] MEDS: HYDROGEN PEROXIDE 480 ML BOTTLE TP SCH ×2 (08:03→20:00)
[2022-09-15] MEDS: ASPIRIN 81 MG TAB.CHEW GT SCH (09:07)
[2022-09-15] MEDS: PROSTAT (PYXIS) 30 ML UDC GT SCH ×2 (09:07→16:22)
[2022-09-15] MEDS: ASCORBIC ACID 500 MG TABLET GT SCH ×2 (09:07→20:51)
[2022-09-15] MEDS: DOCUSATE SODIUM LIQ 100 MG/10 ML UDC GT SCH ×2 (09:07→20:51)
[2022-09-15] MEDS: OMEPRAZOLE 20 MG CAPSULE.DR GT SCH (09:07)
[2022-09-15] MEDS: ALPRAZOLAM 0.5 MG TABLET GT SCH ×2 (09:08→20:51)
[2022-09-15] MEDS: CHLORHEXIDINE GLUCONATE 15 ML UDC MM SCH ×2 (09:08→20:51)
[2022-09-15 11:21] VITALS: BP 106/58; TEMP 97.7; O2SAT 98
[2022-09-15 11:54] VITALS: O2SAT 97
[2022-09-15 18:51] VITALS: BP 123/93; TEMP 99.2; O2SAT 98
[2022-09-15] MEDS: JEVITY 1.2 CAL 1,000 ML BOTTLE GT PRN (21:22)
[2022-09-15 22:04] VITALS: O2SAT 98
[2022-09-15] MEDS: ACETAMINOPHEN 650 MG/20 ML UDC- SA PATIENTS-PAIN ONLY GT PRN (22:37)
[2022-09-15 23:14] VITALS: BP 119/67; TEMP 99.5; O2SAT 95
[2022-09-16] MEDS: ALBUTEROL FS 2.5 MG/3 ML VIAL.NEB NEB SCH ×4 (01:55→20:29)
[2022-09-16] MEDS: IPRATROPIUM NEB FS 0.5 MG/2.5 ML AMPUL.NEB NEB SCH ×4 (01:55→20:29)
[2022-09-16] MEDS: APIXABAN 5 MG TABLET GT SCH ×2 (05:37→19:05)
[2022-09-16] MEDS: BACLOFEN (10 MG) 10 MG TABLET PEG SCH ×3 (05:37→21:17)
[2022-09-16 07:25] VITALS: BP 115/69; TEMP 98; O2SAT 100
[2022-09-16] MEDS: HYDROGEN PEROXIDE 480 ML BOTTLE TP SCH ×2 (09:25→21:32)
[2022-09-16] MEDS: PROSTAT (PYXIS) 30 ML UDC GT SCH ×2 (09:34→16:41)
[2022-09-16] MEDS: ASPIRIN 81 MG TAB.CHEW GT SCH (09:34)
[2022-09-16] MEDS: CHLORHEXIDINE GLUCONATE 15 ML UDC MM SCH ×2 (09:34→21:18)
[2022-09-16] MEDS: ALPRAZOLAM 0.5 MG TABLET GT SCH ×2 (09:34→21:17)
[2022-09-16] MEDS: DOCUSATE SODIUM LIQ 100 MG/10 ML UDC GT SCH ×2 (09:34→21:17)
[2022-09-16] MEDS: ASCORBIC ACID 500 MG TABLET GT SCH ×2 (09:34→21:17)
[2022-09-16] MEDS: OMEPRAZOLE 20 MG CAPSULE.DR GT SCH (09:34)
[2022-09-16 11:09] VITALS: BP 142/91; TEMP 98; O2SAT 99
[2022-09-16 11:16] VITALS: O2SAT 98
[2022-09-16] MEDS: JEVITY 1.2 CAL 1,000 ML BOTTLE GT PRN (16:39)
[2022-09-16 19:44] VITALS: BP 126/85; TEMP 97.6; O2SAT 97
[2022-09-16 22:13] VITALS: O2SAT 96
[2022-09-17 01:14] VITALS: BP 118/72; TEMP 98; O2SAT 97
[2022-09-17] MEDS: ALBUTEROL FS 2.5 MG/3 ML VIAL.NEB NEB SCH ×4 (02:21→19:30)
[2022-09-17] MEDS: IPRATROPIUM NEB FS 0.5 MG/2.5 ML AMPUL.NEB NEB SCH ×4 (02:21→19:30)
[2022-09-17] MEDS: BACLOFEN (10 MG) 10 MG TABLET PEG SCH ×3 (05:06→21:22)
[2022-09-17] MEDS: APIXABAN 5 MG TABLET GT SCH ×2 (05:36→17:36)
[2022-09-17] MEDS: ACETAMINOPHEN 650 MG/20 ML UDC- SA PATIENTS-PAIN ONLY GT PRN (06:51)
[2022-09-17 07:41] VITALS: BP 159/93; TEMP 98.1; O2SAT 98
[2022-09-17] MEDS: CHLORHEXIDINE GLUCONATE 15 ML UDC MM SCH ×2 (08:59→21:21)
[2022-09-17] MEDS: DOCUSATE SODIUM LIQ 100 MG/10 ML UDC GT SCH ×2 (08:59→21:21)
[2022-09-17] MEDS: PROSTAT (PYXIS) 30 ML UDC GT SCH ×2 (08:59→17:16)
[2022-09-17] MEDS: ASCORBIC ACID 500 MG TABLET GT SCH ×2 (08:59→21:21)
[2022-09-17] MEDS: ALPRAZOLAM 0.5 MG TABLET GT SCH ×2 (08:59→21:21)
[2022-09-17] MEDS: ASPIRIN 81 MG TAB.CHEW GT SCH (08:59)
[2022-09-17] MEDS: OMEPRAZOLE 20 MG CAPSULE.DR GT SCH (08:59)
[2022-09-17] MEDS: HYDROGEN PEROXIDE 480 ML BOTTLE TP SCH ×2 (09:38→21:03)
[2022-09-17 10:10] VITALS: O2SAT 98
[2022-09-17 12:17] VITALS: BP 145/74; TEMP 98.2; O2SAT 98
[2022-09-17] MEDS: JEVITY 1.2 CAL 1,000 ML BOTTLE GT PRN (13:20)
[2022-09-17] MEDS: LORAZEPAM 1 MG TABLET GT PRN (17:16)
[2022-09-17 20:43] VITALS: BP 123/75; TEMP 97.9; O2SAT 97
[2022-09-17 22:55] VITALS: O2SAT 96
[2022-09-18] MEDS: ALBUTEROL FS 2.5 MG/3 ML VIAL.NEB NEB SCH ×4 (01:57→20:00)
[2022-09-18] MEDS: IPRATROPIUM NEB FS 0.5 MG/2.5 ML AMPUL.NEB NEB SCH ×4 (01:57→20:00)
[2022-09-18] MEDS: BACLOFEN (10 MG) 10 MG TABLET PEG SCH ×3 (05:09→21:41)
[2022-09-18] MEDS: APIXABAN 5 MG TABLET GT SCH ×2 (05:52→17:39)
[2022-09-18] MEDS: JEVITY 1.2 CAL 1,000 ML BOTTLE GT PRN (06:01)
[2022-09-18 07:31] VITALS: BP 139/95; TEMP 98.3; O2SAT 98
[2022-09-18] MEDS: OMEPRAZOLE 20 MG CAPSULE.DR GT SCH (08:59)
[2022-09-18] MEDS: ASCORBIC ACID 500 MG TABLET GT SCH ×2 (08:59→21:41)
[2022-09-18] MEDS: DOCUSATE SODIUM LIQ 100 MG/10 ML UDC GT SCH ×2 (08:59→21:41)
[2022-09-18] MEDS: ALPRAZOLAM 0.5 MG TABLET GT SCH ×2 (08:59→21:41)
[2022-09-18] MEDS: PROSTAT (PYXIS) 30 ML UDC GT SCH ×2 (08:59→17:38)
[2022-09-18] MEDS: ASPIRIN 81 MG TAB.CHEW GT SCH (08:59)
[2022-09-18] MEDS: CHLORHEXIDINE GLUCONATE 15 ML UDC MM SCH ×2 (09:01→21:41)
[2022-09-18] MEDS: HYDROGEN PEROXIDE 480 ML BOTTLE TP SCH ×2 (09:46→20:09)
[2022-09-18 10:31] VITALS: O2SAT 98
[2022-09-18 14:46] VITALS: BP 132/82; TEMP 98; O2SAT 98
[2022-09-18 19:51] VITALS: BP 119/89; TEMP 98.8; O2SAT 99
[2022-09-18 22:49] VITALS: O2SAT 96
[2022-09-19] MEDS: IPRATROPIUM NEB FS 0.5 MG/2.5 ML AMPUL.NEB NEB SCH ×4 (00:44→18:36)
[2022-09-19] MEDS: ALBUTEROL FS 2.5 MG/3 ML VIAL.NEB NEB SCH ×4 (00:44→18:36)
[2022-09-19] MEDS: JEVITY 1.2 CAL 1,000 ML BOTTLE GT PRN ×2 (01:00→23:47)
[2022-09-19] MEDS: BACLOFEN (10 MG) 10 MG TABLET PEG SCH ×3 (05:23→21:07)
[2022-09-19] MEDS: APIXABAN 5 MG TABLET GT SCH ×2 (06:44→18:17)
[2022-09-19] MEDS: DOCUSATE SODIUM LIQ 100 MG/10 ML UDC GT SCH ×2 (09:00→21:06)
[2022-09-19] MEDS: CHLORHEXIDINE GLUCONATE 15 ML UDC MM SCH ×2 (09:00→21:07)
[2022-09-19] MEDS: ASCORBIC ACID 500 MG TABLET GT SCH ×2 (09:00→21:06)
[2022-09-19] MEDS: ASPIRIN 81 MG TAB.CHEW GT SCH (09:00)
[2022-09-19] MEDS: PROSTAT (PYXIS) 30 ML UDC GT SCH ×2 (09:00→17:00)
[2022-09-19] MEDS: OMEPRAZOLE 20 MG CAPSULE.DR GT SCH (09:00)
[2022-09-19] MEDS: HYDROGEN PEROXIDE 480 ML BOTTLE TP SCH ×2 (09:38→20:22)
[2022-09-19] MEDS: ALPRAZOLAM 0.5 MG TABLET GT SCH ×2 (10:14→21:07)
[2022-09-19 10:21] VITALS: O2SAT 98
[2022-09-19 12:53] VITALS: BP 93/53; TEMP 98; O2SAT 96
[2022-09-19 17:46] VITALS: O2SAT 99
[2022-09-19 20:05] VITALS: BP 131/92; TEMP 98.7; O2SAT 95
[2022-09-19 22:11] VITALS: O2SAT 96
[2022-09-20] MEDS: IPRATROPIUM NEB FS 0.5 MG/2.5 ML AMPUL.NEB NEB SCH ×4 (00:53→18:58)
[2022-09-20] MEDS: ALBUTEROL FS 2.5 MG/3 ML VIAL.NEB NEB SCH ×4 (00:53→18:58)
[2022-09-20] MEDS: APIXABAN 5 MG TABLET GT SCH ×2 (05:50→17:53)
[2022-09-20] MEDS: BACLOFEN (10 MG) 10 MG TABLET PEG SCH ×3 (05:50→21:10)
[2022-09-20] MEDS: HYDROGEN PEROXIDE 480 ML BOTTLE TP SCH ×2 (08:45→20:25)
[2022-09-20] MEDS: OMEPRAZOLE 20 MG CAPSULE.DR GT SCH (09:38)
[2022-09-20] MEDS: ASCORBIC ACID 500 MG TABLET GT SCH ×2 (09:38→21:09)
[2022-09-20] MEDS: PROSTAT (PYXIS) 30 ML UDC GT SCH ×2 (09:38→16:58)
[2022-09-20] MEDS: DOCUSATE SODIUM LIQ 100 MG/10 ML UDC GT SCH ×2 (09:38→21:09)
[2022-09-20] MEDS: ALPRAZOLAM 0.5 MG TABLET GT SCH ×2 (09:39→21:09)
[2022-09-20] MEDS: CHLORHEXIDINE GLUCONATE 15 ML UDC MM SCH ×2 (09:39→21:09)
[2022-09-20] MEDS: ASPIRIN 81 MG TAB.CHEW GT SCH (09:47)
[2022-09-20 15:14] VITALS: O2SAT 98
[2022-09-20 22:00] VITALS: BP 126/62; TEMP 98; O2SAT 100
[2022-09-20 22:11] VITALS: O2SAT 95
[2022-09-21] MEDS: ALBUTEROL FS 2.5 MG/3 ML VIAL.NEB NEB SCH ×4 (01:29→19:55)
[2022-09-21] MEDS: IPRATROPIUM NEB FS 0.5 MG/2.5 ML AMPUL.NEB NEB SCH ×4 (01:29→19:55)
[2022-09-21] MEDS: LORAZEPAM 1 MG TABLET GT PRN ×2 (04:23→16:20)
[2022-09-21] MEDS: BACLOFEN (10 MG) 10 MG TABLET PEG SCH ×3 (05:31→20:19)
[2022-09-21] MEDS: APIXABAN 5 MG TABLET GT SCH ×2 (05:32→18:09)
[2022-09-21 07:19] VITALS: BP 127/73; TEMP 98.7; O2SAT 100
[2022-09-21] MEDS: ASPIRIN 81 MG TAB.CHEW GT SCH (08:42)
[2022-09-21] MEDS: ALPRAZOLAM 0.5 MG TABLET GT SCH ×2 (08:42→20:19)
[2022-09-21] MEDS: ASCORBIC ACID 500 MG TABLET GT SCH ×2 (08:42→20:19)
[2022-09-21] MEDS: DOCUSATE SODIUM LIQ 100 MG/10 ML UDC GT SCH ×2 (08:42→20:19)
[2022-09-21] MEDS: OMEPRAZOLE 20 MG CAPSULE.DR GT SCH (08:42)
[2022-09-21] MEDS: PROSTAT (PYXIS) 30 ML UDC GT SCH ×2 (08:42→16:20)
[2022-09-21] MEDS: CHLORHEXIDINE GLUCONATE 15 ML UDC MM SCH ×2 (08:42→20:19)
[2022-09-21] MEDS: HYDROGEN PEROXIDE 480 ML BOTTLE TP SCH ×2 (09:16→19:55)
[2022-09-21 10:39] VITALS: O2SAT 97
[2022-09-21 13:33] VITALS: BP 139/69; TEMP 98.3; O2SAT 97
[2022-09-21] MEDS: JEVITY 1.2 CAL 1,000 ML BOTTLE GT PRN (13:42)
[2022-09-21 19:38] VITALS: BP 129/70; TEMP 99.2; O2SAT 98
[2022-09-21] MEDS: ACETAMINOPHEN 650 MG/20 ML UDC- SA PATIENTS-PAIN ONLY GT PRN (20:20)
[2022-09-21 23:17] VITALS: O2SAT 97
[2022-09-22] MEDS: ALBUTEROL FS 2.5 MG/3 ML VIAL.NEB NEB SCH ×4 (01:49→19:58)
[2022-09-22] MEDS: IPRATROPIUM NEB FS 0.5 MG/2.5 ML AMPUL.NEB NEB SCH ×4 (01:49→19:58)
[2022-09-22] MEDS: HYDROCODONE/APAP 5/325MG TABLET GT PRN (02:15)
[2022-09-22] MEDS: BACLOFEN (10 MG) 10 MG TABLET PEG SCH ×3 (05:36→20:46)
[2022-09-22] MEDS: APIXABAN 5 MG TABLET GT SCH ×2 (05:36→17:46)
[2022-09-22 06:57] VITALS: BP 114/66; TEMP 97.9; O2SAT 97
[2022-09-22] MEDS: OMEPRAZOLE 20 MG CAPSULE.DR GT SCH (08:48)
[2022-09-22] MEDS: ALPRAZOLAM 0.5 MG TABLET GT SCH ×2 (08:48→20:46)
[2022-09-22] MEDS: PROSTAT (PYXIS) 30 ML UDC GT SCH ×2 (08:48→17:20)
[2022-09-22] MEDS: ASPIRIN 81 MG TAB.CHEW GT SCH (08:48)
[2022-09-22] MEDS: DOCUSATE SODIUM LIQ 100 MG/10 ML UDC GT SCH ×2 (08:48→20:46)
[2022-09-22] MEDS: CHLORHEXIDINE GLUCONATE 15 ML UDC MM SCH ×2 (08:48→20:46)
[2022-09-22] MEDS: ASCORBIC ACID 500 MG TABLET GT SCH ×2 (08:48→20:46)
[2022-09-22] MEDS: HYDROGEN PEROXIDE 480 ML BOTTLE TP SCH ×2 (09:07→19:58)
[2022-09-22 10:08] VITALS: O2SAT 98
[2022-09-22 11:36] VITALS: BP 105/53; TEMP 98.4; O2SAT 100
[2022-09-22] MEDS: JEVITY 1.2 CAL 1,000 ML BOTTLE GT PRN (12:57)
[2022-09-22 20:35] VITALS: BP 105/73; TEMP 98.4; O2SAT 98
[2022-09-22 22:27] VITALS: O2SAT 98
[2022-09-23] VITALS (7 sets, daily range): BP systolic 90–117; BP diastolic 43–68; TEMP 98.2–102.2; O2SAT 97–100
[2022-09-23] MEDS: IPRATROPIUM NEB FS 0.5 MG/2.5 ML AMPUL.NEB NEB SCH ×4 (02:13→18:42)
[2022-09-23] MEDS: ALBUTEROL FS 2.5 MG/3 ML VIAL.NEB NEB SCH ×4 (02:13→18:42)
[2022-09-23] MEDS: BACLOFEN (10 MG) 10 MG TABLET PEG SCH ×3 (05:13→21:28)
[2022-09-23] MEDS: APIXABAN 5 MG TABLET GT SCH ×2 (05:37→18:00)
[2022-09-23] MEDS: JEVITY 1.2 CAL 1,000 ML BOTTLE GT PRN (07:14)
[2022-09-23] MEDS: ALPRAZOLAM 0.5 MG TABLET GT SCH ×2 (08:11→21:28)
[2022-09-23] MEDS: ASPIRIN 81 MG TAB.CHEW GT SCH (08:11)
[2022-09-23] MEDS: OMEPRAZOLE 20 MG CAPSULE.DR GT SCH (08:11)
[2022-09-23] MEDS: DOCUSATE SODIUM LIQ 100 MG/10 ML UDC GT SCH ×2 (08:11→21:28)
[2022-09-23] MEDS: ASCORBIC ACID 500 MG TABLET GT SCH ×2 (08:11→21:28)
[2022-09-23] MEDS: CHLORHEXIDINE GLUCONATE 15 ML UDC MM SCH ×2 (08:11→21:28)
[2022-09-23] MEDS: PROSTAT (PYXIS) 30 ML UDC GT SCH ×2 (08:11→16:53)
[2022-09-23] MEDS: ACETAMINOPHEN 650 MG/20 ML UDC- SA PATIENTS-PAIN ONLY GT PRN ×2 (08:12→16:56)
[2022-09-23 09:14] LABS: BASOPHILS % (AUTO) 0.2 % (0.0-2.0); EOSINOPHILS % (AUTO) 0.1 % (0.0-6.0); HEMATOCRIT 26 % (39-51); HEMOGLOBIN 7.9 g/dL (13.5-17.5); LYMPHOCYTES # (AUTO) 0.6 K/uL (0.8-4.8); LYMPHOCYTES % (AUTO) 3.2 % (20.0-44.0); MEAN CORPUSCULAR HEMOGLOBIN 27 PG (26.0-33.0); MEAN CORPUSCULAR HGB CONC 30 g/dl (31.0-36.0); MEAN CORPUSCULAR VOLUME 89 fL (80-96); MONOCYTES # (AUTO) 2.2 K/uL (0.1-1.30); MONOCYTES % (AUTO) 11.8 % (2.0-12.0); NEUTROPHILS # (AUTO) 15.8 K/uL (1.8-8.9); NEUTROPHILS % (AUTO) 84.7 % (43.0-81.0); PLATELET COUNT (AUTO) 501 K/uL (150-450); RED BLOOD CELL COUNT(AUTO) 2.95 MIL/uL (4.5-6.0); RED CELL DISTRIBUTION WIDTH 19.4 % (11.5-15.0); WHITE BLOOD COUNT (AUTO) 18.7 K/uL (4.3-11.0)
[2022-09-23] MEDS: HYDROGEN PEROXIDE 480 ML BOTTLE TP SCH ×2 (09:14→21:09)
[2022-09-23 09:32] LABS: ALBUMIN 1.8 g/dL (3.4-5.0); BILIRUBIN,TOTAL 1.7 mg/dL (0.2-1.0); CALCIUM, SERUM 7.9 mg/dL (8.5-10.1); CREATININE 0.9 mg/dL (0.6-1.3); POTASSIUM 4.2 mmol/L (3.5-5.1)
[2022-09-23] MEDS ORDERED: ZOSYN IVPB 4.5 G in IV D5W 50ml IV SCH (13:00)
[2022-09-23] MEDS: PIPERACILLIN /TAZOBACTAM 4.5 G in IV D5W 100 ML IV SCH ×2 (14:00→20:44)
[2022-09-23 14:51] LABS: APPEARANCE,URINE SLIGHTLY CLOUDY (CLEAR); BILIRUBIN,URINE 1+ (NEGATIVE); BLOOD, URINE NEGATIVE Ery/uL (NEGATIVE); COLOR,URINE YELLOW (YELLOW); KETONES,URINE NEGATIVE (NEGATIVE); LEUKOCYTE ESTERASE ,URINE 1+ (NEGATIVE); NITRITE, URINE POSITIVE (NEGATIVE); PROTEIN,URINE 1+ mg/dl (NEGATIVE); UGLUCOSE NEGATIVE (NEGATIVE)
[2022-09-23] MEDS: LORAZEPAM 1 MG TABLET GT PRN (16:00)
[2022-09-23 16:14] LABS: ADD URINE CULTURE YES; BACTERIA,URINE Many /HPF (None Seen); SQUAMOUS EPITHELIAL CELL,UR Few /HPF (None Seen)
[2022-09-23 16:15] LABS: RBC,URINE NONE SEEN /HPF (0-2)
[2022-09-23] MEDS ORDERED: PIPERACILLIN /TAZOBACTAM 2.25 G VIAL IV ONE ×2 (21:44→21:45)
[2022-09-24 00:14] VITALS: BP 103/54; TEMP 98.5; O2SAT 98
[2022-09-24] MEDS: IPRATROPIUM NEB FS 0.5 MG/2.5 ML AMPUL.NEB NEB SCH ×4 (02:19→19:57)
[2022-09-24] MEDS: ALBUTEROL FS 2.5 MG/3 ML VIAL.NEB NEB SCH ×4 (02:19→19:57)
[2022-09-24] MEDS: BACLOFEN (10 MG) 10 MG TABLET PEG SCH ×3 (05:29→20:34)
[2022-09-24] MEDS: APIXABAN 5 MG TABLET GT SCH ×2 (05:29→18:44)
[2022-09-24] MEDS: LORAZEPAM 1 MG TABLET GT PRN (05:30)
[2022-09-24] MEDS: ACETAMINOPHEN 650 MG/20 ML UDC- SA PATIENTS-PAIN ONLY GT PRN (05:31)
[2022-09-24] MEDS: PIPERACILLIN /TAZOBACTAM 4.5 G in IV D5W 100 ML IV SCH ×3 (05:39→20:38)
[2022-09-24] MEDS: JEVITY 1.2 CAL 1,000 ML BOTTLE GT PRN (06:48)
[2022-09-24 07:55] VITALS: BP 105/64; TEMP 99.5; O2SAT 95
[2022-09-24] MEDS: PROSTAT (PYXIS) 30 ML UDC GT SCH ×2 (09:16→16:56)
[2022-09-24] MEDS: ASCORBIC ACID 500 MG TABLET GT SCH ×2 (09:16→20:34)
[2022-09-24] MEDS: CHLORHEXIDINE GLUCONATE 15 ML UDC MM SCH ×2 (09:16→20:34)
[2022-09-24] MEDS: ALPRAZOLAM 0.5 MG TABLET GT SCH ×2 (09:16→20:34)
[2022-09-24] MEDS: ASPIRIN 81 MG TAB.CHEW GT SCH (09:16)
[2022-09-24] MEDS: DOCUSATE SODIUM LIQ 100 MG/10 ML UDC GT SCH ×2 (09:16→20:34)
[2022-09-24] MEDS: OMEPRAZOLE 20 MG CAPSULE.DR GT SCH (09:16)
[2022-09-24] MEDS: HYDROGEN PEROXIDE 480 ML BOTTLE TP SCH ×2 (09:55→19:57)
[2022-09-24 19:45] VITALS: BP 107/60; TEMP 97.9; O2SAT 100
[2022-09-24 22:18] VITALS: O2SAT 100
[2022-09-24 23:49] VITALS: BP 110/63; TEMP 97.9; O2SAT 98
[2022-09-25] MEDS: ALBUTEROL FS 2.5 MG/3 ML VIAL.NEB NEB SCH ×4 (02:02→20:02)
[2022-09-25] MEDS: IPRATROPIUM NEB FS 0.5 MG/2.5 ML AMPUL.NEB NEB SCH ×4 (02:02→20:02)
[2022-09-25] MEDS: PIPERACILLIN /TAZOBACTAM 4.5 G in IV D5W 100 ML IV SCH ×3 (04:38→21:48)
[2022-09-25] MEDS: BACLOFEN (10 MG) 10 MG TABLET PEG SCH ×3 (05:17→20:57)
[2022-09-25] MEDS: JEVITY 1.2 CAL 1,000 ML BOTTLE GT PRN (05:18)
[2022-09-25] MEDS: APIXABAN 5 MG TABLET GT SCH ×2 (05:48→17:43)
[2022-09-25 07:50] VITALS: BP 104/60; TEMP 97.6; O2SAT 100
[2022-09-25] MEDS: DOCUSATE SODIUM LIQ 100 MG/10 ML UDC GT SCH ×2 (09:14→20:56)
[2022-09-25] MEDS: CHLORHEXIDINE GLUCONATE 15 ML UDC MM SCH ×2 (09:14→20:56)
[2022-09-25] MEDS: ASPIRIN 81 MG TAB.CHEW GT SCH (09:14)
[2022-09-25] MEDS: ASCORBIC ACID 500 MG TABLET GT SCH ×2 (09:14→20:56)
[2022-09-25] MEDS: ALPRAZOLAM 0.5 MG TABLET GT SCH ×2 (09:14→20:56)
[2022-09-25] MEDS: PROSTAT (PYXIS) 30 ML UDC GT SCH ×2 (09:14→17:43)
[2022-09-25] MEDS: OMEPRAZOLE 20 MG CAPSULE.DR GT SCH (09:14)
[2022-09-25] MEDS: HYDROGEN PEROXIDE 480 ML BOTTLE TP SCH ×2 (09:28→20:02)
[2022-09-25 10:18] VITALS: O2SAT 100
[2022-09-25 19:25] VITALS: BP 130/70; TEMP 98.1; O2SAT 98
[2022-09-25 22:08] VITALS: O2SAT 99
[2022-09-26] MEDS: JEVITY 1.2 CAL 1,000 ML BOTTLE GT PRN ×2 (00:30→18:16)
[2022-09-26] MEDS: IPRATROPIUM NEB FS 0.5 MG/2.5 ML AMPUL.NEB NEB SCH ×4 (02:01→19:56)
[2022-09-26] MEDS: ALBUTEROL FS 2.5 MG/3 ML VIAL.NEB NEB SCH ×4 (02:01→19:56)
[2022-09-26] MEDS: PIPERACILLIN /TAZOBACTAM 4.5 G in IV D5W 100 ML IV SCH ×2 (05:00→12:20)
[2022-09-26] MEDS: APIXABAN 5 MG TABLET GT SCH ×2 (05:20→18:37)
[2022-09-26] MEDS: BACLOFEN (10 MG) 10 MG TABLET PEG SCH ×3 (05:20→20:52)
[2022-09-26 07:29] VITALS: BP 115/79; TEMP 98.8; O2SAT 100
[2022-09-26] MEDS: PROSTAT (PYXIS) 30 ML UDC GT SCH ×2 (09:20→17:20)
[2022-09-26] MEDS: OMEPRAZOLE 20 MG CAPSULE.DR GT SCH (09:20)
[2022-09-26] MEDS: ALPRAZOLAM 0.5 MG TABLET GT SCH ×2 (09:20→20:51)
[2022-09-26] MEDS: ASCORBIC ACID 500 MG TABLET GT SCH ×2 (09:20→20:51)
[2022-09-26] MEDS: CHLORHEXIDINE GLUCONATE 15 ML UDC MM SCH ×2 (09:20→20:51)
[2022-09-26] MEDS: ASPIRIN 81 MG TAB.CHEW GT SCH (09:20)
[2022-09-26] MEDS: DOCUSATE SODIUM LIQ 100 MG/10 ML UDC GT SCH ×2 (09:20→20:51)
[2022-09-26] MEDS: HYDROGEN PEROXIDE 480 ML BOTTLE TP SCH ×2 (09:23→21:04)
[2022-09-26 11:56] VITALS: BP 109/66; TEMP 97.8; O2SAT 100
[2022-09-26 12:37] VITALS: O2SAT 100
[2022-09-26 17:39] LABS: BASOPHILS # (AUTO) 0.1 K/uL (0.0-0.2); BASOPHILS % (AUTO) 0.3 % (0.0-2.0); EOSINOPHILS # (AUTO) 0.1 K/uL (0.0-0.7); EOSINOPHILS % (AUTO) 0.7 % (0.0-6.0); HEMATOCRIT 24 % (39-51); HEMOGLOBIN 7.3 g/dL (13.5-17.5); LYMPHOCYTES # (AUTO) 0.6 K/uL (0.8-4.8); MEAN CORPUSCULAR HEMOGLOBIN 27 PG (26.0-33.0); MEAN CORPUSCULAR HGB CONC 30 g/dl (31.0-36.0); MEAN CORPUSCULAR VOLUME 89 fL (80-96); MONOCYTES # (AUTO) 1.7 K/uL (0.1-1.30); MONOCYTES % (AUTO) 10.7 % (2.0-12.0); NEUTROPHILS # (AUTO) 13.5 K/uL (1.8-8.9); NEUTROPHILS % (AUTO) 84.3 % (43.0-81.0); PLATELET COUNT (AUTO) 511 K/uL (150-450); RED BLOOD CELL COUNT(AUTO) 2.69 MIL/uL (4.5-6.0); RED CELL DISTRIBUTION WIDTH 19.3 % (11.5-15.0)
[2022-09-26 20:00] VITALS: BP 133/71; TEMP 98.1; O2SAT 99
[2022-09-26 20:25] LABS: ANISOCYTOSIS 1+; BAND % (MANUAL) 2 % (0.0-5.0); EOSINOPHILS % (MANUAL) 1 % (0-4); LYMPHOCYTES % (MANUAL) 3 % (16-48); MONOCYTES % (MANUAL) 8 % (0-11.0); NEUTROPHILS % (MANUAL) 86 (42-76); PLATELET ESTIMATE INCREASED
[2022-09-26 22:47] VITALS: O2SAT 99
[2022-09-27] MEDS: ALBUTEROL FS 2.5 MG/3 ML VIAL.NEB NEB SCH ×4 (01:45→20:04)
[2022-09-27] MEDS: IPRATROPIUM NEB FS 0.5 MG/2.5 ML AMPUL.NEB NEB SCH ×4 (01:45→20:04)
[2022-09-27] MEDS: BACLOFEN (10 MG) 10 MG TABLET PEG SCH ×3 (05:34→20:34)
[2022-09-27] MEDS: APIXABAN 5 MG TABLET GT SCH ×2 (05:35→17:39)
[2022-09-27 07:17] VITALS: BP 130/93; TEMP 99.3; O2SAT 96
[2022-09-27] MEDS: ASPIRIN 81 MG TAB.CHEW GT SCH (08:09)
[2022-09-27] MEDS: DOCUSATE SODIUM LIQ 100 MG/10 ML UDC GT SCH ×2 (08:09→20:32)
[2022-09-27] MEDS: ASCORBIC ACID 500 MG TABLET GT SCH ×2 (08:10→20:33)
[2022-09-27] MEDS: CHLORHEXIDINE GLUCONATE 15 ML UDC MM SCH ×2 (08:10→20:33)
[2022-09-27] MEDS: ALPRAZOLAM 0.5 MG TABLET GT SCH ×2 (08:10→20:33)
[2022-09-27] MEDS: OMEPRAZOLE 20 MG CAPSULE.DR GT SCH (08:10)
[2022-09-27] MEDS: PROSTAT (PYXIS) 30 ML UDC GT SCH ×2 (08:10→17:07)
[2022-09-27] MEDS: HYDROGEN PEROXIDE 480 ML BOTTLE TP SCH ×2 (09:04→21:08)
[2022-09-27 10:50] LABS: CREATININE 0.8 mg/dL (0.6-1.3); POTASSIUM 4.1 mmol/L (3.5-5.1)
[2022-09-27 11:12] VITALS: O2SAT 99
[2022-09-27 11:51] VITALS: BP 92/50; TEMP 97.7; O2SAT 98
[2022-09-27] MEDS: MEROPENEM 500 MG in IV NS 0.9% 50 ML IV SCH (17:00)
[2022-09-27 17:23] LABS: ABG BASE EXCESS 0.5 mmol/L; ABG OXYGEN SATURATION 98.2 % (92.0-98.5); ABG PCO2 32.3 mmHg (35.0-45.0); ABG PH 7.485 (7.350-7.450); ABG PO2 111.5 mmHg (75.0-100.0); ABG TOTAL HEMOGLOBIN 7.9 G/dL (13.5-18.0); AaDO2 136.6 mmHg; COHb 0.7 % (0.5-1.5); MetHb 0.2 % (0.0-1.5); O2Hb 97.3 % (94.0-97.0); SITE, ABG Left Radial; VENT MODE, BG AC 40 %
[2022-09-27] MEDS: JEVITY 1.2 CAL 1,000 ML BOTTLE GT PRN (17:38)
[2022-09-27] MEDS ORDERED: IV D5/ 0.9% NACL 1,000 ML IV PRN (18:00)
[2022-09-27] MEDS: IV D5/ 0.9% NACL 1,000 ML IV PRN (18:13)
[2022-09-27 20:00] VITALS: BP 98/65; TEMP 97.5; O2SAT 99
[2022-09-27 22:22] VITALS: O2SAT 99
[2022-09-28] MEDS: MEROPENEM 500 MG in IV NS 0.9% 50 ML IV SCH ×3 (01:00→17:00)
[2022-09-28] MEDS: IPRATROPIUM NEB FS 0.5 MG/2.5 ML AMPUL.NEB NEB SCH ×4 (01:44→19:39)
[2022-09-28] MEDS: ALBUTEROL FS 2.5 MG/3 ML VIAL.NEB NEB SCH ×4 (01:44→19:39)
[2022-09-28] MEDS: IV D5/ 0.9% NACL 1,000 ML IV PRN ×2 (05:00→18:42)
[2022-09-28] MEDS: APIXABAN 5 MG TABLET GT SCH ×2 (05:35→17:59)
[2022-09-28] MEDS: BACLOFEN (10 MG) 10 MG TABLET PEG SCH ×3 (05:35→21:21)
[2022-09-28 07:42] VITALS: BP 103/67; TEMP 98.6; O2SAT 98
[2022-09-28 07:46] LABS: CREATININE 0.6 mg/dL (0.6-1.3); MAGNESIUM 2.1 mg/dL (1.8-2.4); PHOSPHORUS 3.6 mg/dL (2.5-4.9); POTASSIUM 4.4 mmol/L (3.5-5.1)
[2022-09-28 08:02] LABS: BASOPHILS # (AUTO) 0.1 K/uL (0.0-0.2); BASOPHILS % (AUTO) 0.5 % (0.0-2.0); EOSINOPHILS # (AUTO) 0.2 K/uL (0.0-0.7); EOSINOPHILS % (AUTO) 1.6 % (0.0-6.0); HEMATOCRIT 28 % (39-51); HEMOGLOBIN 8.2 g/dL (13.5-17.5); LYMPHOCYTES # (AUTO) 0.9 K/uL (0.8-4.8); LYMPHOCYTES % (AUTO) 7.1 % (20.0-44.0); MEAN CORPUSCULAR HEMOGLOBIN 27 PG (26.0-33.0); MEAN CORPUSCULAR HGB CONC 30 g/dl (31.0-36.0); MEAN CORPUSCULAR VOLUME 91 fL (80-96); MONOCYTES # (AUTO) 1.7 K/uL (0.1-1.30); MONOCYTES % (AUTO) 13.3 % (2.0-12.0); NEUTROPHILS # (AUTO) 10.1 K/uL (1.8-8.9); NEUTROPHILS % (AUTO) 77.5 % (43.0-81.0); PLATELET COUNT (AUTO) 540 K/uL (150-450); RED BLOOD CELL COUNT(AUTO) 3.07 MIL/uL (4.5-6.0); RED CELL DISTRIBUTION WIDTH 19.2 % (11.5-15.0)
[2022-09-28] MEDS: DOCUSATE SODIUM LIQ 100 MG/10 ML UDC GT SCH ×2 (09:16→21:21)
[2022-09-28] MEDS: OMEPRAZOLE 20 MG CAPSULE.DR GT SCH (09:16)
[2022-09-28] MEDS: ASCORBIC ACID 500 MG TABLET GT SCH ×2 (09:16→21:21)
[2022-09-28] MEDS: CHLORHEXIDINE GLUCONATE 15 ML UDC MM SCH ×2 (09:16→21:21)
[2022-09-28] MEDS: ASPIRIN 81 MG TAB.CHEW GT SCH (09:16)
[2022-09-28] MEDS: PROSTAT (PYXIS) 30 ML UDC GT SCH ×2 (09:16→17:56)
[2022-09-28] MEDS: ALPRAZOLAM 0.5 MG TABLET GT SCH ×2 (09:16→21:21)
[2022-09-28] MEDS: HYDROGEN PEROXIDE 480 ML BOTTLE TP SCH ×2 (09:21→19:39)
[2022-09-28 11:01] VITALS: O2SAT 100
[2022-09-28 12:18] VITALS: BP 118/66; TEMP 98.2; O2SAT 100
[2022-09-28] MEDS: JEVITY 1.2 CAL 1,000 ML BOTTLE GT PRN (13:14)
[2022-09-28 22:04] VITALS: O2SAT 99
[2022-09-29] MEDS: MEROPENEM 500 MG in IV NS 0.9% 50 ML IV SCH ×3 (01:00→16:28)
[2022-09-29] MEDS: ALBUTEROL FS 2.5 MG/3 ML VIAL.NEB NEB SCH ×4 (01:02→20:00)
[2022-09-29] MEDS: IPRATROPIUM NEB FS 0.5 MG/2.5 ML AMPUL.NEB NEB SCH ×4 (01:02→20:00)
[2022-09-29] MEDS: BACLOFEN (10 MG) 10 MG TABLET PEG SCH ×3 (05:34→20:20)
[2022-09-29] MEDS: APIXABAN 5 MG TABLET GT SCH ×2 (05:34→17:33)
[2022-09-29 07:54] VITALS: BP 115/84; TEMP 97.7; O2SAT 100
[2022-09-29] MEDS: HYDROGEN PEROXIDE 480 ML BOTTLE TP SCH ×2 (08:13→20:00)
[2022-09-29] MEDS: ALPRAZOLAM 0.5 MG TABLET GT SCH ×2 (09:11→20:20)
[2022-09-29] MEDS: ASPIRIN 81 MG TAB.CHEW GT SCH (09:11)
[2022-09-29] MEDS: PROSTAT (PYXIS) 30 ML UDC GT SCH ×2 (09:11→17:33)
[2022-09-29] MEDS: OMEPRAZOLE 20 MG CAPSULE.DR GT SCH (09:11)
[2022-09-29] MEDS: ASCORBIC ACID 500 MG TABLET GT SCH ×2 (09:11→20:20)
[2022-09-29] MEDS: DOCUSATE SODIUM LIQ 100 MG/10 ML UDC GT SCH ×2 (09:11→20:20)
[2022-09-29] MEDS: CHLORHEXIDINE GLUCONATE 15 ML UDC MM SCH ×2 (09:12→20:20)
[2022-09-29 10:08] VITALS: O2SAT 100
[2022-09-29] MEDS: JEVITY 1.2 CAL 1,000 ML BOTTLE GT PRN (10:52)
[2022-09-29 19:39] VITALS: BP 133/88; TEMP 99.5; O2SAT 98
[2022-09-29 22:07] VITALS: O2SAT 97
[2022-09-30] MEDS: MEROPENEM 500 MG in IV NS 0.9% 50 ML IV SCH ×3 (01:00→17:00)
[2022-09-30 01:14] VITALS: TEMP 99; O2SAT 99
[2022-09-30] MEDS: IPRATROPIUM NEB FS 0.5 MG/2.5 ML AMPUL.NEB NEB SCH ×4 (01:22→18:41)
[2022-09-30] MEDS: ALBUTEROL FS 2.5 MG/3 ML VIAL.NEB NEB SCH ×4 (01:22→18:41)
[2022-09-30] MEDS: BACLOFEN (10 MG) 10 MG TABLET PEG SCH ×3 (05:17→20:15)
[2022-09-30] MEDS: JEVITY 1.2 CAL 1,000 ML BOTTLE GT PRN ×2 (05:17→23:12)
[2022-09-30] MEDS: APIXABAN 5 MG TABLET GT SCH ×2 (05:33→17:31)
[2022-09-30 07:54] VITALS: BP 107/66; TEMP 97.6; O2SAT 100
[2022-09-30] MEDS: DOCUSATE SODIUM LIQ 100 MG/10 ML UDC GT SCH ×2 (09:00→20:15)
[2022-09-30] MEDS: OMEPRAZOLE 20 MG CAPSULE.DR GT SCH (09:00)
[2022-09-30] MEDS: ASCORBIC ACID 500 MG TABLET GT SCH ×2 (09:00→20:15)
[2022-09-30] MEDS: ASPIRIN 81 MG TAB.CHEW GT SCH (09:00)
[2022-09-30] MEDS: PROSTAT (PYXIS) 30 ML UDC GT SCH ×2 (09:00→17:31)
[2022-09-30] MEDS: ALPRAZOLAM 0.5 MG TABLET GT SCH ×2 (09:00→20:15)
[2022-09-30] MEDS: CHLORHEXIDINE GLUCONATE 15 ML UDC MM SCH ×2 (09:00→20:15)
[2022-09-30] MEDS: HYDROGEN PEROXIDE 480 ML BOTTLE TP SCH ×2 (09:07→20:11)
[2022-09-30 10:08] VITALS: O2SAT 97
[2022-09-30 11:32] VITALS: BP 145/64; TEMP 99.8; O2SAT 100
[2022-09-30] MEDS: HYDROCODONE/APAP 5/325MG TABLET GT PRN (17:35)
[2022-09-30 19:20] VITALS: BP 102/57; TEMP 97.7; O2SAT 99
[2022-09-30 23:16] VITALS: O2SAT 100
[2022-10-01 00:18] VITALS: BP 106/67; TEMP 99.3; O2SAT 100
[2022-10-01] MEDS: ALBUTEROL FS 2.5 MG/3 ML VIAL.NEB NEB SCH ×4 (00:55→18:33)
[2022-10-01] MEDS: IPRATROPIUM NEB FS 0.5 MG/2.5 ML AMPUL.NEB NEB SCH ×4 (00:55→18:33)
[2022-10-01] MEDS: MEROPENEM 500 MG in IV NS 0.9% 50 ML IV SCH ×3 (01:00→17:00)
[2022-10-01] MEDS: BACLOFEN (10 MG) 10 MG TABLET PEG SCH ×3 (05:14→20:57)
[2022-10-01] MEDS: APIXABAN 5 MG TABLET GT SCH ×2 (05:31→18:38)
[2022-10-01 07:39] VITALS: BP 125/85; TEMP 99.3; O2SAT 100
[2022-10-01] MEDS: HYDROGEN PEROXIDE 480 ML BOTTLE TP SCH ×2 (09:07→21:00)
[2022-10-01] MEDS: DOCUSATE SODIUM LIQ 100 MG/10 ML UDC GT SCH ×2 (09:34→20:56)
[2022-10-01] MEDS: PROSTAT (PYXIS) 30 ML UDC GT SCH ×2 (09:34→16:59)
[2022-10-01] MEDS: OMEPRAZOLE 20 MG CAPSULE.DR GT SCH (09:34)
[2022-10-01] MEDS: ASPIRIN 81 MG TAB.CHEW GT SCH (09:34)
[2022-10-01] MEDS: ALPRAZOLAM 0.5 MG TABLET GT SCH ×2 (09:35→20:56)
[2022-10-01] MEDS: ASCORBIC ACID 500 MG TABLET GT SCH ×2 (09:35→20:56)
[2022-10-01] MEDS: CHLORHEXIDINE GLUCONATE 15 ML UDC MM SCH ×2 (09:36→20:56)
[2022-10-01 11:52] VITALS: O2SAT 100
[2022-10-01 14:56] VITALS: BP 116/67; TEMP 98.9; O2SAT 100
[2022-10-01] MEDS: JEVITY 1.2 CAL 1,000 ML BOTTLE GT PRN (18:48)
[2022-10-01 20:06] VITALS: BP 135/69; TEMP 97.5; O2SAT 100
[2022-10-01 22:35] VITALS: O2SAT 100
[2022-10-02] MEDS: MEROPENEM 500 MG in IV NS 0.9% 50 ML IV SCH ×3 (00:19→17:08)
[2022-10-02] MEDS: ALBUTEROL FS 2.5 MG/3 ML VIAL.NEB NEB SCH ×4 (01:24→19:11)
[2022-10-02] MEDS: IPRATROPIUM NEB FS 0.5 MG/2.5 ML AMPUL.NEB NEB SCH ×4 (01:24→19:11)
[2022-10-02] MEDS: BACLOFEN (10 MG) 10 MG TABLET PEG SCH ×3 (05:04→20:27)
[2022-10-02] MEDS: APIXABAN 5 MG TABLET GT SCH ×2 (06:31→18:32)
[2022-10-02 08:04] VITALS: BP 111/72; TEMP 98.8; O2SAT 100
[2022-10-02] MEDS: OMEPRAZOLE 20 MG CAPSULE.DR GT SCH (09:00)
[2022-10-02] MEDS: ASCORBIC ACID 500 MG TABLET GT SCH ×2 (09:00→20:27)
[2022-10-02] MEDS: DOCUSATE SODIUM LIQ 100 MG/10 ML UDC GT SCH ×2 (09:00→20:27)
[2022-10-02] MEDS: PROSTAT (PYXIS) 30 ML UDC GT SCH ×2 (09:00→17:03)
[2022-10-02] MEDS: CHLORHEXIDINE GLUCONATE 15 ML UDC MM SCH ×2 (09:00→20:27)
[2022-10-02] MEDS: ASPIRIN 81 MG TAB.CHEW GT SCH (09:00)
[2022-10-02] MEDS: HYDROGEN PEROXIDE 480 ML BOTTLE TP SCH ×2 (09:31→20:19)
[2022-10-02 10:16] VITALS: O2SAT 100
[2022-10-02] MEDS: ALPRAZOLAM 0.5 MG TABLET GT SCH ×2 (10:26→20:27)
[2022-10-02 20:32] VITALS: BP 121/79; TEMP 98.5; O2SAT 98
[2022-10-02 22:41] VITALS: O2SAT 98
[2022-10-03] MEDS: MEROPENEM 500 MG in IV NS 0.9% 50 ML IV SCH ×3 (01:00→17:00)
[2022-10-03] MEDS: ALBUTEROL FS 2.5 MG/3 ML VIAL.NEB NEB SCH ×4 (01:57→19:50)
[2022-10-03] MEDS: IPRATROPIUM NEB FS 0.5 MG/2.5 ML AMPUL.NEB NEB SCH ×4 (01:57→19:50)
[2022-10-03] MEDS: BACLOFEN (10 MG) 10 MG TABLET PEG SCH ×3 (04:53→20:32)
[2022-10-03] MEDS: APIXABAN 5 MG TABLET GT SCH ×2 (05:32→17:37)
[2022-10-03 07:56] VITALS: BP 111/66; TEMP 99; O2SAT 99
[2022-10-03] MEDS: HYDROGEN PEROXIDE 480 ML BOTTLE TP SCH ×2 (08:15→19:50)
[2022-10-03] MEDS: OMEPRAZOLE 20 MG CAPSULE.DR GT SCH (08:40)
[2022-10-03] MEDS: ALPRAZOLAM 0.5 MG TABLET GT SCH ×2 (08:40→20:31)
[2022-10-03] MEDS: ASCORBIC ACID 500 MG TABLET GT SCH ×2 (08:40→20:31)
[2022-10-03] MEDS: PROSTAT (PYXIS) 30 ML UDC GT SCH ×2 (08:40→16:48)
[2022-10-03] MEDS: ASPIRIN 81 MG TAB.CHEW GT SCH (08:40)
[2022-10-03] MEDS: CHLORHEXIDINE GLUCONATE 15 ML UDC MM SCH ×2 (08:40→20:32)
[2022-10-03] MEDS: DOCUSATE SODIUM LIQ 100 MG/10 ML UDC GT SCH ×2 (08:40→20:31)
[2022-10-03 10:11] VITALS: O2SAT 100
[2022-10-03] MEDS: ACETAMINOPHEN 650 MG/20 ML UDC- SA PATIENTS-PAIN ONLY GT PRN (12:01)
[2022-10-03] MEDS: JEVITY 1.2 CAL 1,000 ML BOTTLE GT PRN (13:22)
[2022-10-03 19:45] VITALS: BP 133/71; TEMP 98.2; O2SAT 100
[2022-10-03 22:57] VITALS: O2SAT 98
[2022-10-04] MEDS: MEROPENEM 500 MG in IV NS 0.9% 50 ML IV SCH ×3 (01:00→17:05)
[2022-10-04] MEDS: ALBUTEROL FS 2.5 MG/3 ML VIAL.NEB NEB SCH ×4 (02:09→19:28)
[2022-10-04] MEDS: IPRATROPIUM NEB FS 0.5 MG/2.5 ML AMPUL.NEB NEB SCH ×4 (02:09→19:28)
[2022-10-04] MEDS: BACLOFEN (10 MG) 10 MG TABLET PEG SCH ×3 (05:23→20:42)
[2022-10-04] MEDS: APIXABAN 5 MG TABLET GT SCH ×2 (05:23→18:33)
[2022-10-04] MEDS: JEVITY 1.2 CAL 1,000 ML BOTTLE GT PRN (05:38)
[2022-10-04 07:17] VITALS: BP 124/87; TEMP 97.8; O2SAT 100
[2022-10-04] MEDS: HYDROGEN PEROXIDE 480 ML BOTTLE TP SCH ×2 (09:28→21:53)
[2022-10-04] MEDS: ALPRAZOLAM 0.5 MG TABLET GT SCH ×2 (09:57→20:42)
[2022-10-04] MEDS: PROSTAT (PYXIS) 30 ML UDC GT SCH ×2 (09:57→17:48)
[2022-10-04] MEDS: ASPIRIN 81 MG TAB.CHEW GT SCH (09:57)
[2022-10-04] MEDS: DOCUSATE SODIUM LIQ 100 MG/10 ML UDC GT SCH ×2 (09:57→20:42)
[2022-10-04] MEDS: OMEPRAZOLE 20 MG CAPSULE.DR GT SCH (09:57)
[2022-10-04] MEDS: CHLORHEXIDINE GLUCONATE 15 ML UDC MM SCH ×2 (09:57→20:42)
[2022-10-04] MEDS: ASCORBIC ACID 500 MG TABLET GT SCH ×2 (09:57→20:42)
[2022-10-04 11:01] VITALS: O2SAT 100
[2022-10-04 20:17] VITALS: BP 114/70; TEMP 98.8; O2SAT 100
[2022-10-04 22:30] VITALS: O2SAT 98
[2022-10-05] MEDS: MEROPENEM 500 MG in IV NS 0.9% 50 ML IV SCH (00:36)
[2022-10-05] MEDS: ALBUTEROL FS 2.5 MG/3 ML VIAL.NEB NEB SCH ×4 (01:30→19:55)
[2022-10-05] MEDS: IPRATROPIUM NEB FS 0.5 MG/2.5 ML AMPUL.NEB NEB SCH ×4 (01:30→19:55)
[2022-10-05] MEDS: APIXABAN 5 MG TABLET GT SCH ×2 (05:34→19:14)
[2022-10-05] MEDS: JEVITY 1.2 CAL 1,000 ML BOTTLE GT PRN (05:34)
[2022-10-05] MEDS: BACLOFEN (10 MG) 10 MG TABLET PEG SCH ×3 (05:34→21:36)
[2022-10-05 07:27] VITALS: BP 137/62; TEMP 97.8; O2SAT 99
[2022-10-05] MEDS: HYDROGEN PEROXIDE 480 ML BOTTLE TP SCH ×2 (09:18→19:56)
[2022-10-05] MEDS: DOCUSATE SODIUM LIQ 100 MG/10 ML UDC GT SCH ×2 (09:53→21:36)
[2022-10-05] MEDS: OMEPRAZOLE 20 MG CAPSULE.DR GT SCH (09:53)
[2022-10-05] MEDS: ASPIRIN 81 MG TAB.CHEW GT SCH (09:53)
[2022-10-05] MEDS: PROSTAT (PYXIS) 30 ML UDC GT SCH ×2 (09:53→17:00)
[2022-10-05] MEDS: ASCORBIC ACID 500 MG TABLET GT SCH ×2 (09:54→21:36)
[2022-10-05] MEDS: ALPRAZOLAM 0.5 MG TABLET GT SCH ×2 (09:54→21:36)
[2022-10-05] MEDS: CHLORHEXIDINE GLUCONATE 15 ML UDC MM SCH ×2 (09:54→21:36)
[2022-10-05 10:28] VITALS: O2SAT 98
[2022-10-05 15:32] VITALS: BP 129/71; TEMP 97.6; O2SAT 100
[2022-10-05 20:00] VITALS: BP 113/73; TEMP 98.1; O2SAT 99
[2022-10-05 22:40] VITALS: O2SAT 100
[2022-10-06] MEDS: ALBUTEROL FS 2.5 MG/3 ML VIAL.NEB NEB SCH ×4 (01:57→20:29)
[2022-10-06] MEDS: IPRATROPIUM NEB FS 0.5 MG/2.5 ML AMPUL.NEB NEB SCH ×4 (01:57→20:29)
[2022-10-06] MEDS: BACLOFEN (10 MG) 10 MG TABLET PEG SCH ×3 (05:37→20:55)
[2022-10-06] MEDS: APIXABAN 5 MG TABLET GT SCH ×2 (05:43→17:39)
[2022-10-06] MEDS: JEVITY 1.2 CAL 1,000 ML BOTTLE GT PRN ×2 (05:43→19:15)
[2022-10-06 07:39] VITALS: BP 120/74; TEMP 98.2; O2SAT 98
[2022-10-06] MEDS: HYDROGEN PEROXIDE 480 ML BOTTLE TP SCH ×2 (08:12→20:29)
[2022-10-06] MEDS: ASPIRIN 81 MG TAB.CHEW GT SCH (09:16)
[2022-10-06] MEDS: DOCUSATE SODIUM LIQ 100 MG/10 ML UDC GT SCH ×2 (09:16→20:55)
[2022-10-06] MEDS: PROSTAT (PYXIS) 30 ML UDC GT SCH ×2 (09:17→17:39)
[2022-10-06] MEDS: OMEPRAZOLE 20 MG CAPSULE.DR GT SCH (09:17)
[2022-10-06] MEDS: ASCORBIC ACID 500 MG TABLET GT SCH ×2 (09:17→20:55)
[2022-10-06] MEDS: ALPRAZOLAM 0.5 MG TABLET GT SCH ×2 (09:18→20:55)
[2022-10-06] MEDS: CHLORHEXIDINE GLUCONATE 15 ML UDC MM SCH ×2 (09:20→20:55)
[2022-10-06 10:07] VITALS: O2SAT 100
[2022-10-06 20:03] VITALS: BP 125/87; TEMP 98.5; O2SAT 93
[2022-10-07] MEDS: IPRATROPIUM NEB FS 0.5 MG/2.5 ML AMPUL.NEB NEB SCH ×4 (01:57→18:47)
[2022-10-07] MEDS: ALBUTEROL FS 2.5 MG/3 ML VIAL.NEB NEB SCH ×4 (01:57→18:47)
[2022-10-07 03:44] VITALS: O2SAT 96
[2022-10-07] MEDS: BACLOFEN (10 MG) 10 MG TABLET PEG SCH ×3 (05:31→20:24)
[2022-10-07] MEDS: APIXABAN 5 MG TABLET GT SCH ×2 (06:37→17:39)
[2022-10-07 08:37] VITALS: BP 108/69; TEMP 100.1; O2SAT 97
[2022-10-07] MEDS: ASPIRIN 81 MG TAB.CHEW GT SCH (09:05)
[2022-10-07] MEDS: DOCUSATE SODIUM LIQ 100 MG/10 ML UDC GT SCH ×2 (09:05→20:24)
[2022-10-07] MEDS: OMEPRAZOLE 20 MG CAPSULE.DR GT SCH (09:06)
[2022-10-07] MEDS: ASCORBIC ACID 500 MG TABLET GT SCH ×2 (09:06→20:24)
[2022-10-07] MEDS: PROSTAT (PYXIS) 30 ML UDC GT SCH ×2 (09:06→17:39)
[2022-10-07] MEDS: ALPRAZOLAM 0.5 MG TABLET GT SCH ×2 (09:07→20:24)
[2022-10-07] MEDS: CHLORHEXIDINE GLUCONATE 15 ML UDC MM SCH ×2 (09:08→20:24)
[2022-10-07] MEDS: HYDROGEN PEROXIDE 480 ML BOTTLE TP SCH ×2 (09:24→20:42)
[2022-10-07 10:20] VITALS: O2SAT 97
[2022-10-07] MEDS: JEVITY 1.2 CAL 1,000 ML BOTTLE GT PRN (19:09)
[2022-10-07 19:21] VITALS: BP 97/59; TEMP 98.9; O2SAT 98
[2022-10-07 23:09] VITALS: O2SAT 98
[2022-10-08 00:40] VITALS: BP 119/80; TEMP 98.7; O2SAT 99
[2022-10-08] MEDS: ALBUTEROL FS 2.5 MG/3 ML VIAL.NEB NEB SCH ×4 (00:47→19:51)
[2022-10-08] MEDS: IPRATROPIUM NEB FS 0.5 MG/2.5 ML AMPUL.NEB NEB SCH ×4 (00:47→19:51)
[2022-10-08] MEDS: BACLOFEN (10 MG) 10 MG TABLET PEG SCH ×4 (05:28→21:45)
[2022-10-08] MEDS: APIXABAN 5 MG TABLET GT SCH ×2 (05:39→17:31)
[2022-10-08 07:50] VITALS: BP 134/69; TEMP 98.8; O2SAT 97
[2022-10-08] MEDS: HYDROGEN PEROXIDE 480 ML BOTTLE TP SCH ×2 (09:13→19:51)
[2022-10-08] MEDS: DOCUSATE SODIUM LIQ 100 MG/10 ML UDC GT SCH ×2 (09:16→20:23)
[2022-10-08] MEDS: ASPIRIN 81 MG TAB.CHEW GT SCH (09:16)
[2022-10-08] MEDS: OMEPRAZOLE 20 MG CAPSULE.DR GT SCH (09:17)
[2022-10-08] MEDS: PROSTAT (PYXIS) 30 ML UDC GT SCH ×2 (09:17→17:31)
[2022-10-08] MEDS: ASCORBIC ACID 500 MG TABLET GT SCH ×3 (09:17→21:45)
[2022-10-08] MEDS: CHLORHEXIDINE GLUCONATE 15 ML UDC MM SCH ×3 (09:18→21:45)
[2022-10-08] MEDS: ALPRAZOLAM 0.5 MG TABLET GT SCH ×2 (09:18→20:23)
[2022-10-08] MEDS: LORAZEPAM 1 MG TABLET GT PRN ×2 (09:28→17:51)
[2022-10-08 12:19] VITALS: BP 130/72; TEMP 98.5; O2SAT 98
[2022-10-08 12:46] VITALS: O2SAT 98
[2022-10-08] MEDS: JEVITY 1.2 CAL 1,000 ML BOTTLE GT PRN (17:29)
[2022-10-08 19:00] VITALS: BP 104/62; TEMP 99.1; O2SAT 98
[2022-10-08 22:23] VITALS: O2SAT 99
[2022-10-09 00:42] VITALS: BP 115/68; TEMP 99.3; O2SAT 98
[2022-10-09] MEDS: ALBUTEROL FS 2.5 MG/3 ML VIAL.NEB NEB SCH ×4 (01:49→20:05)
[2022-10-09] MEDS: IPRATROPIUM NEB FS 0.5 MG/2.5 ML AMPUL.NEB NEB SCH ×4 (01:49→20:05)
[2022-10-09] MEDS: HYDROCODONE/APAP 5/325MG TABLET GT PRN (02:11)
[2022-10-09] MEDS: BACLOFEN (10 MG) 10 MG TABLET PEG SCH ×3 (05:11→21:00)
[2022-10-09] MEDS: APIXABAN 5 MG TABLET GT SCH ×2 (05:53→17:43)
[2022-10-09 07:30] VITALS: BP 89/55; TEMP 97.6; O2SAT 99
[2022-10-09] MEDS: ASPIRIN 81 MG TAB.CHEW GT SCH (08:23)
[2022-10-09] MEDS: DOCUSATE SODIUM LIQ 100 MG/10 ML UDC GT SCH ×2 (08:24→20:59)
[2022-10-09] MEDS: OMEPRAZOLE 20 MG CAPSULE.DR GT SCH (08:25)
[2022-10-09] MEDS: ASCORBIC ACID 500 MG TABLET GT SCH ×2 (08:26→20:59)
[2022-10-09] MEDS: PROSTAT (PYXIS) 30 ML UDC GT SCH ×2 (08:26→16:21)
[2022-10-09] MEDS: ALPRAZOLAM 0.5 MG TABLET GT SCH ×2 (08:28→20:59)
[2022-10-09] MEDS: HYDROGEN PEROXIDE 480 ML BOTTLE TP SCH ×2 (08:28→20:05)
[2022-10-09] MEDS: CHLORHEXIDINE GLUCONATE 15 ML UDC MM SCH ×2 (08:28→20:59)
[2022-10-09 12:18] VITALS: BP 114/64; TEMP 98.6; O2SAT 98
[2022-10-09] MEDS: JEVITY 1.2 CAL 1,000 ML BOTTLE GT PRN (12:35)
[2022-10-09 19:11] VITALS: BP 129/69; TEMP 98.9; O2SAT 98
[2022-10-09 22:22] VITALS: O2SAT 97
[2022-10-09 23:55] VITALS: BP 99/65; TEMP 97.5; O2SAT 100
[2022-10-10] MEDS: JEVITY 1.2 CAL 1,000 ML BOTTLE GT PRN (00:26)
[2022-10-10] MEDS: IPRATROPIUM NEB FS 0.5 MG/2.5 ML AMPUL.NEB NEB SCH ×4 (01:35→18:49)
[2022-10-10] MEDS: ALBUTEROL FS 2.5 MG/3 ML VIAL.NEB NEB SCH ×4 (01:35→18:49)
[2022-10-10] MEDS: BACLOFEN (10 MG) 10 MG TABLET PEG SCH ×3 (05:17→21:08)
[2022-10-10] MEDS: APIXABAN 5 MG TABLET GT SCH ×2 (05:17→17:54)
[2022-10-10 07:32] VITALS: BP 93/66; TEMP 97.5; O2SAT 98
[2022-10-10] MEDS: HYDROGEN PEROXIDE 480 ML BOTTLE TP SCH ×2 (08:17→20:17)
[2022-10-10] MEDS: ASCORBIC ACID 500 MG TABLET GT SCH ×2 (09:23→21:08)
[2022-10-10] MEDS: ASPIRIN 81 MG TAB.CHEW GT SCH (09:23)
[2022-10-10] MEDS: DOCUSATE SODIUM LIQ 100 MG/10 ML UDC GT SCH ×2 (09:23→21:09)
[2022-10-10] MEDS: CHLORHEXIDINE GLUCONATE 15 ML UDC MM SCH ×2 (09:23→21:08)
[2022-10-10] MEDS: PROSTAT (PYXIS) 30 ML UDC GT SCH ×2 (09:23→17:09)
[2022-10-10] MEDS: OMEPRAZOLE 20 MG CAPSULE.DR GT SCH (09:23)
[2022-10-10] MEDS: ALPRAZOLAM 0.5 MG TABLET GT SCH ×2 (09:23→21:08)
[2022-10-10 11:53] VITALS: BP 103/69; TEMP 98; O2SAT 100
[2022-10-10 14:31] VITALS: O2SAT 100
[2022-10-10 20:20] VITALS: BP 118/82; TEMP 99; O2SAT 100
[2022-10-10 23:43] VITALS: O2SAT 98
[2022-10-11] MEDS: ALBUTEROL FS 2.5 MG/3 ML VIAL.NEB NEB SCH ×4 (00:52→19:17)
[2022-10-11] MEDS: IPRATROPIUM NEB FS 0.5 MG/2.5 ML AMPUL.NEB NEB SCH ×4 (00:52→19:17)
[2022-10-11] MEDS: BACLOFEN (10 MG) 10 MG TABLET PEG SCH ×3 (05:41→20:49)
[2022-10-11] MEDS: JEVITY 1.2 CAL 1,000 ML BOTTLE GT PRN ×2 (05:42→16:53)
[2022-10-11] MEDS: APIXABAN 5 MG TABLET GT SCH ×2 (05:42→17:58)
[2022-10-11 07:22] VITALS: BP 103/64; TEMP 97.7; O2SAT 97
[2022-10-11] MEDS: HYDROGEN PEROXIDE 480 ML BOTTLE TP SCH ×2 (08:25→20:34)
[2022-10-11] MEDS: ASCORBIC ACID 500 MG TABLET GT SCH ×2 (09:36→20:49)
[2022-10-11] MEDS: PROSTAT (PYXIS) 30 ML UDC GT SCH ×2 (09:36→16:23)
[2022-10-11] MEDS: OMEPRAZOLE 20 MG CAPSULE.DR GT SCH (09:36)
[2022-10-11] MEDS: ASPIRIN 81 MG TAB.CHEW GT SCH (09:36)
[2022-10-11] MEDS: DOCUSATE SODIUM LIQ 100 MG/10 ML UDC GT SCH ×2 (09:36→20:49)
[2022-10-11] MEDS: ALPRAZOLAM 0.5 MG TABLET GT SCH ×2 (09:37→21:00)
[2022-10-11] MEDS: CHLORHEXIDINE GLUCONATE 15 ML UDC MM SCH ×2 (09:38→20:49)
[2022-10-11 12:40] VITALS: O2SAT 100
[2022-10-11 19:20] VITALS: BP 103/59; TEMP 98.6; O2SAT 100
[2022-10-11 22:31] VITALS: O2SAT 98
[2022-10-12] MEDS: ALBUTEROL FS 2.5 MG/3 ML VIAL.NEB NEB SCH ×4 (01:56→20:07)
[2022-10-12] MEDS: IPRATROPIUM NEB FS 0.5 MG/2.5 ML AMPUL.NEB NEB SCH ×4 (01:56→20:07)
[2022-10-12] MEDS: BACLOFEN (10 MG) 10 MG TABLET PEG SCH ×3 (05:44→21:13)
[2022-10-12] MEDS: APIXABAN 5 MG TABLET GT SCH ×2 (05:46→17:42)
[2022-10-12 07:44] VITALS: BP 100/65; TEMP 98.7; O2SAT 100
[2022-10-12] MEDS: CHLORHEXIDINE GLUCONATE 15 ML UDC MM SCH ×2 (09:05→21:13)
[2022-10-12] MEDS: DOCUSATE SODIUM LIQ 100 MG/10 ML UDC GT SCH ×2 (09:05→21:13)
[2022-10-12] MEDS: PROSTAT (PYXIS) 30 ML UDC GT SCH ×2 (09:05→16:09)
[2022-10-12] MEDS: OMEPRAZOLE 20 MG CAPSULE.DR GT SCH (09:05)
[2022-10-12] MEDS: ALPRAZOLAM 0.5 MG TABLET GT SCH ×2 (09:05→21:13)
[2022-10-12] MEDS: ASCORBIC ACID 500 MG TABLET GT SCH ×2 (09:05→21:13)
[2022-10-12] MEDS: ASPIRIN 81 MG TAB.CHEW GT SCH (09:05)
[2022-10-12] MEDS: HYDROGEN PEROXIDE 480 ML BOTTLE TP SCH ×2 (09:42→20:07)
[2022-10-12] MEDS: JEVITY 1.2 CAL 1,000 ML BOTTLE GT PRN (12:16)
[2022-10-12] MEDS: ACETAMINOPHEN 650 MG/20 ML UDC- SA PATIENTS-PAIN ONLY GT PRN (12:24)
[2022-10-12 13:32] VITALS: O2SAT 98
[2022-10-12 19:27] VITALS: BP 124/79; TEMP 99.3; O2SAT 100
[2022-10-12 22:39] VITALS: O2SAT 99
[2022-10-13] MEDS: ALBUTEROL FS 2.5 MG/3 ML VIAL.NEB NEB SCH ×4 (01:56→20:09)
[2022-10-13] MEDS: IPRATROPIUM NEB FS 0.5 MG/2.5 ML AMPUL.NEB NEB SCH ×4 (01:56→20:09)
[2022-10-13] MEDS: HYDROCODONE/APAP 5/325MG TABLET GT PRN (04:38)
[2022-10-13] MEDS: BACLOFEN (10 MG) 10 MG TABLET PEG SCH ×3 (05:00→20:03)
[2022-10-13] MEDS: APIXABAN 5 MG TABLET GT SCH ×2 (06:03→17:34)
[2022-10-13] MEDS: JEVITY 1.2 CAL 1,000 ML BOTTLE GT PRN (06:03)
[2022-10-13 07:32] VITALS: BP 90/63; TEMP 97.8; O2SAT 98
[2022-10-13] MEDS: DOCUSATE SODIUM LIQ 100 MG/10 ML UDC GT SCH ×2 (08:51→20:03)
[2022-10-13] MEDS: ASCORBIC ACID 500 MG TABLET GT SCH ×2 (08:51→20:03)
[2022-10-13] MEDS: PROSTAT (PYXIS) 30 ML UDC GT SCH ×2 (08:51→16:34)
[2022-10-13] MEDS: CHLORHEXIDINE GLUCONATE 15 ML UDC MM SCH ×2 (08:51→20:03)
[2022-10-13] MEDS: OMEPRAZOLE 20 MG CAPSULE.DR GT SCH (08:51)
[2022-10-13] MEDS: ASPIRIN 81 MG TAB.CHEW GT SCH (08:51)
[2022-10-13] MEDS: ALPRAZOLAM 0.5 MG TABLET GT SCH ×2 (08:51→20:03)
[2022-10-13] MEDS: HYDROGEN PEROXIDE 480 ML BOTTLE TP SCH ×2 (09:39→20:09)
[2022-10-13 10:07] VITALS: O2SAT 100
[2022-10-13 11:37] VITALS: BP 111/57; TEMP 97.9; O2SAT 98
[2022-10-13 19:57] VITALS: BP 106/64; TEMP 97.6; O2SAT 100
[2022-10-13 22:56] VITALS: O2SAT 99
[2022-10-14 00:21] VITALS: BP 105/54; TEMP 98.3; O2SAT 100
[2022-10-14] MEDS: ALBUTEROL FS 2.5 MG/3 ML VIAL.NEB NEB SCH ×4 (01:40→19:36)
[2022-10-14] MEDS: IPRATROPIUM NEB FS 0.5 MG/2.5 ML AMPUL.NEB NEB SCH ×4 (01:40→19:36)
[2022-10-14] MEDS: HYDROCODONE/APAP 5/325MG TABLET GT PRN (03:23)
[2022-10-14] MEDS: BACLOFEN (10 MG) 10 MG TABLET PEG SCH ×3 (04:52→20:46)
[2022-10-14] MEDS: APIXABAN 5 MG TABLET GT SCH ×2 (05:38→17:46)
[2022-10-14] MEDS: JEVITY 1.2 CAL 1,000 ML BOTTLE GT PRN (05:57)
[2022-10-14 07:38] VITALS: BP 111/51; TEMP 99.5; O2SAT 100
[2022-10-14] MEDS: HYDROGEN PEROXIDE 480 ML BOTTLE TP SCH ×2 (09:13→20:34)
[2022-10-14] MEDS: ALPRAZOLAM 0.5 MG TABLET GT SCH ×2 (09:40→20:46)
[2022-10-14] MEDS: PROSTAT (PYXIS) 30 ML UDC GT SCH ×2 (09:40→17:45)
[2022-10-14] MEDS: DOCUSATE SODIUM LIQ 100 MG/10 ML UDC GT SCH ×2 (09:40→20:46)
[2022-10-14] MEDS: ASCORBIC ACID 500 MG TABLET GT SCH ×2 (09:40→20:46)
[2022-10-14] MEDS: OMEPRAZOLE 20 MG CAPSULE.DR GT SCH (09:40)
[2022-10-14] MEDS: CHLORHEXIDINE GLUCONATE 15 ML UDC MM SCH ×2 (09:40→20:46)
[2022-10-14] MEDS: ASPIRIN 81 MG TAB.CHEW GT SCH (09:40)
[2022-10-14 10:47] VITALS: O2SAT 100
[2022-10-14 11:39] VITALS: BP 101/56; TEMP 98.7; O2SAT 98
[2022-10-14 19:39] VITALS: BP 96/68; TEMP 98.4; O2SAT 99
[2022-10-14 22:52] VITALS: O2SAT 99
[2022-10-15] MEDS: ALBUTEROL FS 2.5 MG/3 ML VIAL.NEB NEB SCH ×4 (01:41→18:49)
[2022-10-15] MEDS: IPRATROPIUM NEB FS 0.5 MG/2.5 ML AMPUL.NEB NEB SCH ×4 (01:41→18:49)
[2022-10-15] MEDS: APIXABAN 5 MG TABLET GT SCH ×2 (05:45→17:32)
[2022-10-15] MEDS: BACLOFEN (10 MG) 10 MG TABLET PEG SCH ×3 (05:45→20:08)
[2022-10-15 08:21] VITALS: BP 129/74; TEMP 97.6; O2SAT 98
[2022-10-15] MEDS: HYDROGEN PEROXIDE 480 ML BOTTLE TP SCH ×2 (09:00→20:31)
[2022-10-15] MEDS: ASCORBIC ACID 500 MG TABLET GT SCH ×2 (09:59→20:08)
[2022-10-15] MEDS: ALPRAZOLAM 0.5 MG TABLET GT SCH ×2 (09:59→20:08)
[2022-10-15] MEDS: OMEPRAZOLE 20 MG CAPSULE.DR GT SCH (09:59)
[2022-10-15] MEDS: ASPIRIN 81 MG TAB.CHEW GT SCH (09:59)
[2022-10-15] MEDS: DOCUSATE SODIUM LIQ 100 MG/10 ML UDC GT SCH ×2 (09:59→20:08)
[2022-10-15] MEDS: CHLORHEXIDINE GLUCONATE 15 ML UDC MM SCH ×2 (09:59→20:08)
[2022-10-15] MEDS: PROSTAT (PYXIS) 30 ML UDC GT SCH ×2 (09:59→17:32)
[2022-10-15 10:06] VITALS: O2SAT 100
[2022-10-15 12:49] VITALS: BP 114/75; TEMP 99.4; O2SAT 99
[2022-10-15] MEDS: JEVITY 1.2 CAL 1,000 ML BOTTLE GT PRN ×2 (18:27)
[2022-10-15 20:14] VITALS: BP 122/69; TEMP 99.1; O2SAT 100
[2022-10-15 22:20] VITALS: O2SAT 99
[2022-10-16] MEDS: IPRATROPIUM NEB FS 0.5 MG/2.5 ML AMPUL.NEB NEB SCH ×4 (02:03→18:37)
[2022-10-16] MEDS: ALBUTEROL FS 2.5 MG/3 ML VIAL.NEB NEB SCH ×4 (02:03→18:37)
[2022-10-16] MEDS: BACLOFEN (10 MG) 10 MG TABLET PEG SCH ×3 (05:31→21:18)
[2022-10-16] MEDS: APIXABAN 5 MG TABLET GT SCH ×2 (05:55→18:32)
[2022-10-16 07:54] VITALS: BP 112/58; TEMP 99.5; O2SAT 99
[2022-10-16] MEDS: OMEPRAZOLE 20 MG CAPSULE.DR GT SCH (08:45)
[2022-10-16] MEDS: ASPIRIN 81 MG TAB.CHEW GT SCH (08:45)
[2022-10-16] MEDS: DOCUSATE SODIUM LIQ 100 MG/10 ML UDC GT SCH ×2 (08:45→21:18)
[2022-10-16] MEDS: CHLORHEXIDINE GLUCONATE 15 ML UDC MM SCH ×2 (08:46→21:18)
[2022-10-16] MEDS: ALPRAZOLAM 0.5 MG TABLET GT SCH ×2 (08:46→21:31)
[2022-10-16] MEDS: PROSTAT (PYXIS) 30 ML UDC GT SCH ×2 (08:46→16:32)
[2022-10-16] MEDS: ASCORBIC ACID 500 MG TABLET GT SCH ×2 (08:46→21:18)
[2022-10-16] MEDS: HYDROGEN PEROXIDE 480 ML BOTTLE TP SCH ×2 (09:49→20:06)
[2022-10-16 10:15] VITALS: O2SAT 100
[2022-10-16] MEDS: JEVITY 1.2 CAL 1,000 ML BOTTLE GT PRN (11:45)
[2022-10-16 20:00] VITALS: BP 115/67; TEMP 98.3; O2SAT 99
[2022-10-16 23:14] VITALS: O2SAT 98
[2022-10-17] MEDS: IPRATROPIUM NEB FS 0.5 MG/2.5 ML AMPUL.NEB NEB SCH ×4 (01:30→20:19)
[2022-10-17] MEDS: ALBUTEROL FS 2.5 MG/3 ML VIAL.NEB NEB SCH ×4 (01:30→20:19)
[2022-10-17] MEDS: BACLOFEN (10 MG) 10 MG TABLET PEG SCH ×3 (05:00→21:03)
[2022-10-17] MEDS: APIXABAN 5 MG TABLET GT SCH ×2 (06:04→17:26)
[2022-10-17] MEDS: PROSTAT (PYXIS) 30 ML UDC GT SCH ×2 (08:43→17:22)
[2022-10-17] MEDS: ALPRAZOLAM 0.5 MG TABLET GT SCH ×2 (08:43→21:03)
[2022-10-17] MEDS: ASCORBIC ACID 500 MG TABLET GT SCH ×2 (08:43→21:02)
[2022-10-17] MEDS: ASPIRIN 81 MG TAB.CHEW GT SCH (08:43)
[2022-10-17] MEDS: DOCUSATE SODIUM LIQ 100 MG/10 ML UDC GT SCH ×2 (08:43→21:02)
[2022-10-17] MEDS: OMEPRAZOLE 20 MG CAPSULE.DR GT SCH (08:43)
[2022-10-17] MEDS: CHLORHEXIDINE GLUCONATE 15 ML UDC MM SCH ×2 (08:44→21:03)
[2022-10-17] MEDS: JEVITY 1.2 CAL 1,000 ML BOTTLE GT PRN (08:44)
[2022-10-17] MEDS: HYDROGEN PEROXIDE 480 ML BOTTLE TP SCH ×2 (09:42→20:20)
[2022-10-17 09:43] VITALS: BP 131/89; TEMP 100.8; O2SAT 99
[2022-10-17 10:51] VITALS: O2SAT 98
[2022-10-17] MEDS: LORAZEPAM 1 MG TABLET GT PRN (18:17)
[2022-10-17] MEDS: ACETAMINOPHEN 650 MG/20 ML UDC- SA PATIENTS-PAIN ONLY GT PRN (18:17)
[2022-10-17 19:37] VITALS: BP 136/76; TEMP 100.2; O2SAT 100
[2022-10-17 23:23] VITALS: O2SAT 98
[2022-10-18] MEDS: IPRATROPIUM NEB FS 0.5 MG/2.5 ML AMPUL.NEB NEB SCH ×4 (02:10→20:25)
[2022-10-18] MEDS: ALBUTEROL FS 2.5 MG/3 ML VIAL.NEB NEB SCH ×4 (02:10→20:25)
[2022-10-18] MEDS: JEVITY 1.2 CAL 1,000 ML BOTTLE GT PRN ×2 (05:29→22:13)
[2022-10-18] MEDS: BACLOFEN (10 MG) 10 MG TABLET PEG SCH ×3 (05:29→21:17)
[2022-10-18] MEDS: APIXABAN 5 MG TABLET GT SCH ×2 (05:30→17:30)
[2022-10-18 07:44] VITALS: BP 123/71; TEMP 97.7; O2SAT 99
[2022-10-18] MEDS: OMEPRAZOLE 20 MG CAPSULE.DR GT SCH (08:27)
[2022-10-18] MEDS: CHLORHEXIDINE GLUCONATE 15 ML UDC MM SCH ×2 (08:27→21:17)
[2022-10-18] MEDS: ALPRAZOLAM 0.5 MG TABLET GT SCH ×2 (08:27→21:17)
[2022-10-18] MEDS: ASPIRIN 81 MG TAB.CHEW GT SCH (08:27)
[2022-10-18] MEDS: PROSTAT (PYXIS) 30 ML UDC GT SCH ×2 (08:27→17:10)
[2022-10-18] MEDS: ASCORBIC ACID 500 MG TABLET GT SCH ×2 (08:27→21:17)
[2022-10-18] MEDS: DOCUSATE SODIUM LIQ 100 MG/10 ML UDC GT SCH ×2 (08:27→21:17)
[2022-10-18] MEDS: HYDROGEN PEROXIDE 480 ML BOTTLE TP SCH ×2 (09:09→20:25)
[2022-10-18 10:30] VITALS: O2SAT 98
[2022-10-18 20:17] VITALS: BP 128/61; TEMP 99.3; O2SAT 100
[2022-10-18 22:29] VITALS: O2SAT 98
[2022-10-19] MEDS: ALBUTEROL FS 2.5 MG/3 ML VIAL.NEB NEB SCH ×4 (02:20→19:59)
[2022-10-19] MEDS: IPRATROPIUM NEB FS 0.5 MG/2.5 ML AMPUL.NEB NEB SCH ×4 (02:20→19:59)
[2022-10-19] MEDS: BACLOFEN (10 MG) 10 MG TABLET PEG SCH ×3 (05:12→21:03)
[2022-10-19] MEDS: APIXABAN 5 MG TABLET GT SCH ×2 (06:39→18:16)
[2022-10-19 07:26] VITALS: BP 99/68; TEMP 97.8; O2SAT 100
[2022-10-19] MEDS: HYDROGEN PEROXIDE 480 ML BOTTLE TP SCH ×2 (08:35→19:59)
[2022-10-19] MEDS: ALPRAZOLAM 0.5 MG TABLET GT SCH ×2 (09:46→21:03)
[2022-10-19] MEDS: ASPIRIN 81 MG TAB.CHEW GT SCH (09:46)
[2022-10-19] MEDS: PROSTAT (PYXIS) 30 ML UDC GT SCH ×2 (09:46→16:17)
[2022-10-19] MEDS: DOCUSATE SODIUM LIQ 100 MG/10 ML UDC GT SCH ×2 (09:46→21:03)
[2022-10-19] MEDS: OMEPRAZOLE 20 MG CAPSULE.DR GT SCH (09:46)
[2022-10-19] MEDS: CHLORHEXIDINE GLUCONATE 15 ML UDC MM SCH ×2 (09:46→21:03)
[2022-10-19] MEDS: ASCORBIC ACID 500 MG TABLET GT SCH ×2 (09:46→21:03)
[2022-10-19 12:25] VITALS: BP 96/63; TEMP 98.7; O2SAT 99
[2022-10-19 14:55] VITALS: O2SAT 98
[2022-10-19 15:56] VITALS: O2SAT 98
[2022-10-19 20:04] VITALS: BP 96/51; TEMP 97.7; O2SAT 98
[2022-10-19] MEDS: JEVITY 1.2 CAL 1,000 ML BOTTLE GT PRN (21:03)
[2022-10-19 22:08] VITALS: O2SAT 99
[2022-10-20] MEDS: LORAZEPAM 1 MG TABLET GT PRN (00:58)
[2022-10-20 01:00] VITALS: BP 138/76; TEMP 98; O2SAT 98
[2022-10-20] MEDS: IPRATROPIUM NEB FS 0.5 MG/2.5 ML AMPUL.NEB NEB SCH ×4 (01:15→19:51)
[2022-10-20] MEDS: ALBUTEROL FS 2.5 MG/3 ML VIAL.NEB NEB SCH ×4 (01:15→19:51)
[2022-10-20] MEDS: HYDROCODONE/APAP 5/325MG TABLET GT PRN (05:08)
[2022-10-20] MEDS: BACLOFEN (10 MG) 10 MG TABLET PEG SCH ×3 (05:45→21:16)
[2022-10-20] MEDS: APIXABAN 5 MG TABLET GT SCH ×2 (05:45→17:58)
[2022-10-20 08:03] VITALS: BP 104/67; TEMP 97.7; O2SAT 100
[2022-10-20] MEDS: ASPIRIN 81 MG TAB.CHEW GT SCH (08:47)
[2022-10-20] MEDS: OMEPRAZOLE 20 MG CAPSULE.DR GT SCH (08:48)
[2022-10-20] MEDS: ALPRAZOLAM 0.5 MG TABLET GT SCH ×2 (08:48→21:16)
[2022-10-20] MEDS: ASCORBIC ACID 500 MG TABLET GT SCH ×2 (08:48→21:16)
[2022-10-20] MEDS: PROSTAT (PYXIS) 30 ML UDC GT SCH ×2 (08:48→17:22)
[2022-10-20] MEDS: DOCUSATE SODIUM LIQ 100 MG/10 ML UDC GT SCH ×2 (08:48→21:16)
[2022-10-20] MEDS: CHLORHEXIDINE GLUCONATE 15 ML UDC MM SCH ×2 (08:49→21:16)
[2022-10-20] MEDS: HYDROGEN PEROXIDE 480 ML BOTTLE TP SCH ×2 (09:20→19:51)
[2022-10-20 10:18] VITALS: O2SAT 98
[2022-10-20 12:05] VITALS: BP 114/59; TEMP 98.2; O2SAT 97
[2022-10-20] MEDS: JEVITY 1.2 CAL 1,000 ML BOTTLE GT PRN (18:01)
[2022-10-20 19:46] VITALS: BP 95/64; TEMP 99.1; O2SAT 99
[2022-10-20 22:09] VITALS: O2SAT 100
[2022-10-21] MEDS: IPRATROPIUM NEB FS 0.5 MG/2.5 ML AMPUL.NEB NEB SCH ×4 (01:38→20:26)
[2022-10-21] MEDS: ALBUTEROL FS 2.5 MG/3 ML VIAL.NEB NEB SCH ×4 (01:38→20:26)
[2022-10-21] MEDS: APIXABAN 5 MG TABLET GT SCH ×2 (05:32→18:52)
[2022-10-21] MEDS: BACLOFEN (10 MG) 10 MG TABLET PEG SCH ×3 (05:32→21:17)
[2022-10-21] MEDS: HYDROGEN PEROXIDE 480 ML BOTTLE TP SCH ×2 (08:08→20:26)
[2022-10-21 08:25] VITALS: BP 122/81; TEMP 98.9; O2SAT 100
[2022-10-21] MEDS: ASPIRIN 81 MG TAB.CHEW GT SCH (09:27)
[2022-10-21] MEDS: ASCORBIC ACID 500 MG TABLET GT SCH ×2 (09:27→21:16)
[2022-10-21] MEDS: DOCUSATE SODIUM LIQ 100 MG/10 ML UDC GT SCH ×2 (09:27→21:16)
[2022-10-21] MEDS: PROSTAT (PYXIS) 30 ML UDC GT SCH ×2 (09:27→16:53)
[2022-10-21] MEDS: OMEPRAZOLE 20 MG CAPSULE.DR GT SCH (09:27)
[2022-10-21] MEDS: ALPRAZOLAM 0.5 MG TABLET GT SCH ×2 (09:28→21:17)
[2022-10-21] MEDS: CHLORHEXIDINE GLUCONATE 15 ML UDC MM SCH ×2 (09:28→21:17)
[2022-10-21 10:19] VITALS: O2SAT 100
[2022-10-21 15:07] VITALS: BP 134/80; TEMP 98.6; O2SAT 98
[2022-10-21] MEDS: JEVITY 1.2 CAL 1,000 ML BOTTLE GT PRN (17:00)
[2022-10-21 19:57] VITALS: BP 120/82; TEMP 99.1; O2SAT 99
[2022-10-22] VITALS (8 sets, daily range): BP systolic 101–156; BP diastolic 56–85; TEMP 97.4–100.8; O2SAT 97–100
[2022-10-22] MEDS: LORAZEPAM 1 MG TABLET GT PRN ×2 (01:38→23:07)
[2022-10-22] MEDS: ALBUTEROL FS 2.5 MG/3 ML VIAL.NEB NEB SCH ×4 (01:50→19:56)
[2022-10-22] MEDS: IPRATROPIUM NEB FS 0.5 MG/2.5 ML AMPUL.NEB NEB SCH ×4 (01:50→19:56)
[2022-10-22] MEDS: BACLOFEN (10 MG) 10 MG TABLET PEG SCH ×3 (05:52→20:17)
[2022-10-22] MEDS: APIXABAN 5 MG TABLET GT SCH ×2 (05:53→18:34)
[2022-10-22] MEDS: PROSTAT (PYXIS) 30 ML UDC GT SCH ×2 (08:45→16:05)
[2022-10-22] MEDS: DOCUSATE SODIUM LIQ 100 MG/10 ML UDC GT SCH ×2 (08:45→20:17)
[2022-10-22] MEDS: OMEPRAZOLE 20 MG CAPSULE.DR GT SCH (08:45)
[2022-10-22] MEDS: ALPRAZOLAM 0.5 MG TABLET GT SCH ×2 (08:45→20:17)
[2022-10-22] MEDS: CHLORHEXIDINE GLUCONATE 15 ML UDC MM SCH ×2 (08:45→20:17)
[2022-10-22] MEDS: ASPIRIN 81 MG TAB.CHEW GT SCH (08:45)
[2022-10-22] MEDS: ASCORBIC ACID 500 MG TABLET GT SCH ×2 (08:45→20:17)
[2022-10-22] MEDS: HYDROGEN PEROXIDE 480 ML BOTTLE TP SCH ×2 (09:30→19:56)
[2022-10-22] MEDS: JEVITY 1.2 CAL 1,000 ML BOTTLE GT PRN (14:04)
[2022-10-23 00:16] VITALS: BP 127/84; TEMP 98.2; O2SAT 99
[2022-10-23] MEDS: ALBUTEROL FS 2.5 MG/3 ML VIAL.NEB NEB SCH ×4 (01:21→19:51)
[2022-10-23] MEDS: IPRATROPIUM NEB FS 0.5 MG/2.5 ML AMPUL.NEB NEB SCH ×4 (01:21→19:51)
[2022-10-23] MEDS: BACLOFEN (10 MG) 10 MG TABLET PEG SCH ×3 (05:05→20:37)
[2022-10-23] MEDS: APIXABAN 5 MG TABLET GT SCH ×2 (05:31→18:35)
[2022-10-23 07:36] VITALS: BP 95/62; TEMP 98.4; O2SAT 96
[2022-10-23] MEDS: HYDROGEN PEROXIDE 480 ML BOTTLE TP SCH ×2 (08:03→19:51)
[2022-10-23] MEDS: DOCUSATE SODIUM LIQ 100 MG/10 ML UDC GT SCH ×2 (08:56→20:37)
[2022-10-23] MEDS: OMEPRAZOLE 20 MG CAPSULE.DR GT SCH (08:56)
[2022-10-23] MEDS: ASPIRIN 81 MG TAB.CHEW GT SCH (08:56)
[2022-10-23] MEDS: PROSTAT (PYXIS) 30 ML UDC GT SCH ×2 (08:57→17:54)
[2022-10-23] MEDS: ASCORBIC ACID 500 MG TABLET GT SCH ×2 (08:57→20:37)
[2022-10-23] MEDS: ALPRAZOLAM 0.5 MG TABLET GT SCH ×2 (08:57→20:37)
[2022-10-23] MEDS: CHLORHEXIDINE GLUCONATE 15 ML UDC MM SCH ×2 (08:58→20:37)
[2022-10-23] MEDS: JEVITY 1.2 CAL 1,000 ML BOTTLE GT PRN (10:09)
[2022-10-23 11:09] VITALS: O2SAT 95
[2022-10-23 12:42] VITALS: BP 112/64; TEMP 98; O2SAT 99
[2022-10-23 19:48] VITALS: BP 126/77; TEMP 97.5; O2SAT 97
[2022-10-23 22:08] VITALS: O2SAT 97
[2022-10-24] MEDS: ALBUTEROL FS 2.5 MG/3 ML VIAL.NEB NEB SCH ×4 (01:24→18:53)
[2022-10-24] MEDS: IPRATROPIUM NEB FS 0.5 MG/2.5 ML AMPUL.NEB NEB SCH ×4 (01:24→18:53)
[2022-10-24] MEDS: BACLOFEN (10 MG) 10 MG TABLET PEG SCH ×3 (05:08→20:32)
[2022-10-24] MEDS: APIXABAN 5 MG TABLET GT SCH ×2 (06:31→17:44)
[2022-10-24] MEDS: JEVITY 1.2 CAL 1,000 ML BOTTLE GT PRN (06:31)
[2022-10-24 07:11] LABS: BASOPHILS % (AUTO) 0.4 % (0.0-2.0); EOSINOPHILS # (AUTO) 0.5 K/uL (0.0-0.7); EOSINOPHILS % (AUTO) 3.4 % (0.0-6.0); HEMATOCRIT 27 % (39-51); HEMOGLOBIN 8.1 g/dL (13.5-17.5); LYMPHOCYTES # (AUTO) 0.9 K/uL (0.8-4.8); LYMPHOCYTES % (AUTO) 6.4 % (20.0-44.0); MEAN CORPUSCULAR HEMOGLOBIN 26 PG (26.0-33.0); MEAN CORPUSCULAR HGB CONC 30 g/dl (31.0-36.0); MEAN CORPUSCULAR VOLUME 87 fL (80-96); MONOCYTES # (AUTO) 1.7 K/uL (0.1-1.30); MONOCYTES % (AUTO) 12.5 % (2.0-12.0); NEUTROPHILS # (AUTO) 10.4 K/uL (1.8-8.9); NEUTROPHILS % (AUTO) 77.3 % (43.0-81.0); PLATELET COUNT (AUTO) 439 K/uL (150-450); RED BLOOD CELL COUNT(AUTO) 3.06 MIL/uL (4.5-6.0); WHITE BLOOD COUNT (AUTO) 13.5 K/uL (4.3-11.0)
[2022-10-24 07:32] VITALS: BP 124/62; TEMP 98.5; O2SAT 100
[2022-10-24] MEDS: HYDROGEN PEROXIDE 480 ML BOTTLE TP SCH ×2 (08:08→20:05)
[2022-10-24] MEDS: DOCUSATE SODIUM LIQ 100 MG/10 ML UDC GT SCH ×2 (08:46→20:31)
[2022-10-24] MEDS: ASPIRIN 81 MG TAB.CHEW GT SCH (08:46)
[2022-10-24] MEDS: PROSTAT (PYXIS) 30 ML UDC GT SCH ×2 (08:47→17:42)
[2022-10-24] MEDS: OMEPRAZOLE 20 MG CAPSULE.DR GT SCH (08:47)
[2022-10-24] MEDS: ASCORBIC ACID 500 MG TABLET GT SCH ×2 (08:47→20:31)
[2022-10-24] MEDS: ALPRAZOLAM 0.5 MG TABLET GT SCH ×2 (08:48→20:31)
[2022-10-24] MEDS: CHLORHEXIDINE GLUCONATE 15 ML UDC MM SCH ×2 (08:48→20:32)
[2022-10-24 10:08] VITALS: O2SAT 97
[2022-10-24 11:34] VITALS: BP 126/68; TEMP 98.2; O2SAT 100
[2022-10-24] MEDS: LORAZEPAM 1 MG TABLET GT PRN (18:43)
[2022-10-24] MEDS: HYDROCODONE/APAP 5/325MG TABLET GT PRN (18:53)
[2022-10-24 20:00] VITALS: BP 114/86; TEMP 97.5; O2SAT 99
[2022-10-24 22:22] VITALS: O2SAT 97
[2022-10-25] MEDS: ALBUTEROL FS 2.5 MG/3 ML VIAL.NEB NEB SCH ×4 (00:39→20:29)
[2022-10-25] MEDS: IPRATROPIUM NEB FS 0.5 MG/2.5 ML AMPUL.NEB NEB SCH ×4 (00:39→20:29)
[2022-10-25] MEDS: JEVITY 1.2 CAL 1,000 ML BOTTLE GT PRN (04:03)
[2022-10-25] MEDS: BACLOFEN (10 MG) 10 MG TABLET PEG SCH ×3 (05:16→21:48)
[2022-10-25] MEDS: APIXABAN 5 MG TABLET GT SCH ×3 (05:17→18:07)
[2022-10-25 07:48] VITALS: BP 111/65; TEMP 98.5; O2SAT 99
[2022-10-25] MEDS: ALPRAZOLAM 0.5 MG TABLET GT SCH ×2 (08:52→21:48)
[2022-10-25] MEDS: PROSTAT (PYXIS) 30 ML UDC GT SCH ×2 (09:05→16:40)
[2022-10-25] MEDS: ASCORBIC ACID 500 MG TABLET GT SCH ×2 (09:05→21:48)
[2022-10-25] MEDS: ASPIRIN 81 MG TAB.CHEW GT SCH (09:05)
[2022-10-25] MEDS: CHLORHEXIDINE GLUCONATE 15 ML UDC MM SCH ×2 (09:05→21:48)
[2022-10-25] MEDS: OMEPRAZOLE 20 MG CAPSULE.DR GT SCH (09:05)
[2022-10-25] MEDS: DOCUSATE SODIUM LIQ 100 MG/10 ML UDC GT SCH ×2 (09:05→21:48)
[2022-10-25] MEDS: HYDROGEN PEROXIDE 480 ML BOTTLE TP SCH ×2 (09:22→20:29)
[2022-10-25 10:33] VITALS: O2SAT 97
[2022-10-25] MEDS: HYDROCODONE/APAP 5/325MG TABLET GT PRN (11:50)
[2022-10-25 14:37] VITALS: BP 151/82; TEMP 98.7; O2SAT 99
[2022-10-25 20:00] VITALS: BP 107/75; TEMP 98; O2SAT 99
[2022-10-26] VITALS (7 sets, daily range): BP systolic 98–108; BP diastolic 52–56; TEMP 98.1–100.9; O2SAT 96–100
[2022-10-26] MEDS: IPRATROPIUM NEB FS 0.5 MG/2.5 ML AMPUL.NEB NEB SCH ×4 (01:30→19:52)
[2022-10-26] MEDS: ALBUTEROL FS 2.5 MG/3 ML VIAL.NEB NEB SCH ×4 (01:30→19:52)
[2022-10-26] MEDS: BACLOFEN (10 MG) 10 MG TABLET PEG SCH ×3 (05:53→21:26)
[2022-10-26] MEDS: APIXABAN 5 MG TABLET GT SCH ×2 (05:53→18:10)
[2022-10-26] MEDS: HYDROGEN PEROXIDE 480 ML BOTTLE TP SCH ×2 (09:07→19:52)
[2022-10-26] MEDS: CHLORHEXIDINE GLUCONATE 15 ML UDC MM SCH ×2 (09:30→21:26)
[2022-10-26] MEDS: OMEPRAZOLE 20 MG CAPSULE.DR GT SCH (09:30)
[2022-10-26] MEDS: DOCUSATE SODIUM LIQ 100 MG/10 ML UDC GT SCH ×2 (09:30→21:26)
[2022-10-26] MEDS: PROSTAT (PYXIS) 30 ML UDC GT SCH ×2 (09:30→17:00)
[2022-10-26] MEDS: ALPRAZOLAM 0.5 MG TABLET GT SCH ×2 (09:30→21:26)
[2022-10-26] MEDS: ASPIRIN 81 MG TAB.CHEW GT SCH (09:30)
[2022-10-26] MEDS: ASCORBIC ACID 500 MG TABLET GT SCH ×2 (09:30→21:26)
[2022-10-26] MEDS: ACETAMINOPHEN 650 MG/20 ML UDC- SA PATIENTS-PAIN ONLY GT PRN (21:27)
[2022-10-27] VITALS (7 sets, daily range): BP systolic 90–122; BP diastolic 55–75; TEMP 97.7–99.3; O2SAT 99–100
[2022-10-27] MEDS: IPRATROPIUM NEB FS 0.5 MG/2.5 ML AMPUL.NEB NEB SCH ×4 (01:43→19:45)
[2022-10-27] MEDS: ALBUTEROL FS 2.5 MG/3 ML VIAL.NEB NEB SCH ×4 (01:43→19:45)
[2022-10-27] MEDS: JEVITY 1.2 CAL 1,000 ML BOTTLE GT PRN ×2 (01:51→21:03)
[2022-10-27] MEDS: APIXABAN 5 MG TABLET GT SCH ×2 (05:51→17:39)
[2022-10-27] MEDS: BACLOFEN (10 MG) 10 MG TABLET PEG SCH ×3 (05:51→20:06)
[2022-10-27] MEDS: HYDROGEN PEROXIDE 480 ML BOTTLE TP SCH ×2 (07:55→19:45)
[2022-10-27] MEDS: ASPIRIN 81 MG TAB.CHEW GT SCH (09:43)
[2022-10-27] MEDS: OMEPRAZOLE 20 MG CAPSULE.DR GT SCH (09:49)
[2022-10-27] MEDS: DOCUSATE SODIUM LIQ 100 MG/10 ML UDC GT SCH ×2 (09:49→20:05)
[2022-10-27] MEDS: PROSTAT (PYXIS) 30 ML UDC GT SCH ×2 (09:50→17:39)
[2022-10-27] MEDS: ASCORBIC ACID 500 MG TABLET GT SCH ×2 (09:50→20:05)
[2022-10-27] MEDS: ALPRAZOLAM 0.5 MG TABLET GT SCH ×2 (09:50→21:03)
[2022-10-27] MEDS: CHLORHEXIDINE GLUCONATE 15 ML UDC MM SCH ×2 (09:50→20:06)
[2022-10-27] MEDS: HYDROCODONE/APAP 5/325MG TABLET GT PRN (18:22)
[2022-10-28] MEDS: IPRATROPIUM NEB FS 0.5 MG/2.5 ML AMPUL.NEB NEB SCH ×4 (01:24→19:50)
[2022-10-28] MEDS: ALBUTEROL FS 2.5 MG/3 ML VIAL.NEB NEB SCH ×4 (01:24→19:50)
[2022-10-28] MEDS: BACLOFEN (10 MG) 10 MG TABLET PEG SCH ×3 (05:23→20:04)
[2022-10-28] MEDS: APIXABAN 5 MG TABLET GT SCH ×2 (05:32→18:36)
[2022-10-28 08:02] VITALS: BP 121/65; TEMP 98.3; O2SAT 98
[2022-10-28] MEDS: HYDROGEN PEROXIDE 480 ML BOTTLE TP SCH ×2 (09:00→20:05)
[2022-10-28] MEDS: ASPIRIN 81 MG TAB.CHEW GT SCH (09:35)
[2022-10-28] MEDS: DOCUSATE SODIUM LIQ 100 MG/10 ML UDC GT SCH ×2 (09:36→20:04)
[2022-10-28] MEDS: ALPRAZOLAM 0.5 MG TABLET GT SCH ×2 (09:36→20:32)
[2022-10-28] MEDS: ASCORBIC ACID 500 MG TABLET GT SCH ×2 (09:36→20:04)
[2022-10-28] MEDS: PROSTAT (PYXIS) 30 ML UDC GT SCH ×2 (09:36→17:28)
[2022-10-28] MEDS: OMEPRAZOLE 20 MG CAPSULE.DR GT SCH (09:36)
[2022-10-28] MEDS: CHLORHEXIDINE GLUCONATE 15 ML UDC MM SCH ×2 (09:37→20:04)
[2022-10-28 11:20] VITALS: O2SAT 99
[2022-10-28] MEDS: JEVITY 1.2 CAL 1,000 ML BOTTLE GT PRN (17:28)
[2022-10-28] MEDS: ACETAMINOPHEN 650 MG/20 ML UDC- SA PATIENTS-PAIN ONLY GT PRN (18:17)
[2022-10-28 20:10] VITALS: BP 99/63; TEMP 98.7; O2SAT 99
[2022-10-28 22:06] VITALS: O2SAT 99
[2022-10-28] MEDS: HYDROCODONE/APAP 5/325MG TABLET GT PRN (23:01)
[2022-10-29] MEDS: IPRATROPIUM NEB FS 0.5 MG/2.5 ML AMPUL.NEB NEB SCH ×4 (00:32→18:46)
[2022-10-29] MEDS: ALBUTEROL FS 2.5 MG/3 ML VIAL.NEB NEB SCH ×4 (00:32→18:46)
[2022-10-29 00:37] VITALS: BP 105/60; TEMP 98.2; O2SAT 99
[2022-10-29] MEDS: BACLOFEN (10 MG) 10 MG TABLET PEG SCH ×3 (05:16→20:26)
[2022-10-29] MEDS: APIXABAN 5 MG TABLET GT SCH ×2 (05:48→18:01)
[2022-10-29 08:00] VITALS: BP 124/56; TEMP 100; O2SAT 97
[2022-10-29] MEDS: PROSTAT (PYXIS) 30 ML UDC GT SCH ×2 (08:55→16:44)
[2022-10-29] MEDS: ASCORBIC ACID 500 MG TABLET GT SCH ×2 (08:55→20:26)
[2022-10-29] MEDS: ALPRAZOLAM 0.5 MG TABLET GT SCH ×2 (08:55→20:26)
[2022-10-29] MEDS: DOCUSATE SODIUM LIQ 100 MG/10 ML UDC GT SCH ×2 (08:55→20:26)
[2022-10-29] MEDS: ASPIRIN 81 MG TAB.CHEW GT SCH (08:55)
[2022-10-29] MEDS: CHLORHEXIDINE GLUCONATE 15 ML UDC MM SCH ×2 (08:55→20:26)
[2022-10-29] MEDS: OMEPRAZOLE 20 MG CAPSULE.DR GT SCH (08:55)
[2022-10-29 09:07] VITALS: TEMP 98.4
[2022-10-29] MEDS: HYDROGEN PEROXIDE 480 ML BOTTLE TP SCH ×2 (09:34→20:05)
[2022-10-29 11:14] VITALS: O2SAT 99
[2022-10-29] MEDS: HYDROCODONE/APAP 5/325MG TABLET GT PRN ×3 (15:03→23:53)
[2022-10-29] MEDS: JEVITY 1.2 CAL 1,000 ML BOTTLE GT PRN (15:13)
[2022-10-29 19:50] VITALS: BP 102/63; TEMP 99; O2SAT 98
[2022-10-29 22:06] VITALS: O2SAT 97
[2022-10-29] MEDS: LORAZEPAM 1 MG TABLET GT PRN (22:22)
[2022-10-30] MEDS: IPRATROPIUM NEB FS 0.5 MG/2.5 ML AMPUL.NEB NEB SCH ×4 (00:33→20:06)
[2022-10-30] MEDS: ALBUTEROL FS 2.5 MG/3 ML VIAL.NEB NEB SCH ×4 (00:33→20:06)
[2022-10-30] MEDS: BACLOFEN (10 MG) 10 MG TABLET PEG SCH ×3 (05:00→20:32)
[2022-10-30] MEDS: APIXABAN 5 MG TABLET GT SCH ×2 (06:13→18:36)
[2022-10-30 07:53] VITALS: BP 117/64; TEMP 98.8; O2SAT 95
[2022-10-30] MEDS: HYDROGEN PEROXIDE 480 ML BOTTLE TP SCH ×2 (08:55→20:06)
[2022-10-30] MEDS: PROSTAT (PYXIS) 30 ML UDC GT SCH ×2 (09:44→17:21)
[2022-10-30] MEDS: OMEPRAZOLE 20 MG CAPSULE.DR GT SCH (09:44)
[2022-10-30] MEDS: CHLORHEXIDINE GLUCONATE 15 ML UDC MM SCH ×2 (09:44→20:32)
[2022-10-30] MEDS: ASCORBIC ACID 500 MG TABLET GT SCH ×2 (09:44→20:31)
[2022-10-30] MEDS: ASPIRIN 81 MG TAB.CHEW GT SCH (09:44)
[2022-10-30] MEDS: DOCUSATE SODIUM LIQ 100 MG/10 ML UDC GT SCH ×2 (09:44→20:30)
[2022-10-30] MEDS: ALPRAZOLAM 0.5 MG TABLET GT SCH ×2 (09:44→20:31)
[2022-10-30 10:29] VITALS: O2SAT 96
[2022-10-30] MEDS: LORAZEPAM 1 MG TABLET GT PRN (12:15)
[2022-10-30] MEDS: JEVITY 1.2 CAL 1,000 ML BOTTLE GT PRN (12:52)
[2022-10-30 20:00] VITALS: BP 124/91; TEMP 98.3; O2SAT 99
[2022-10-30 22:24] VITALS: O2SAT 98
[2022-10-31] MEDS: ALBUTEROL FS 2.5 MG/3 ML VIAL.NEB NEB SCH ×4 (02:15→18:42)
[2022-10-31] MEDS: IPRATROPIUM NEB FS 0.5 MG/2.5 ML AMPUL.NEB NEB SCH ×4 (02:15→18:42)
[2022-10-31] MEDS: BACLOFEN (10 MG) 10 MG TABLET PEG SCH ×3 (05:26→21:05)
[2022-10-31] MEDS: APIXABAN 5 MG TABLET GT SCH ×2 (05:26→18:04)
[2022-10-31] MEDS: JEVITY 1.2 CAL 1,000 ML BOTTLE GT PRN (05:53)
[2022-10-31] MEDS: HYDROCODONE/APAP 5/325MG TABLET GT PRN (07:46)
[2022-10-31 08:41] VITALS: BP 154/94; TEMP 100.5; O2SAT 99
[2022-10-31] MEDS: HYDROGEN PEROXIDE 480 ML BOTTLE TP SCH ×2 (09:27→20:28)
[2022-10-31 09:39] VITALS: O2SAT 99
[2022-10-31] MEDS: ASPIRIN 81 MG TAB.CHEW GT SCH (09:53)
[2022-10-31] MEDS: DOCUSATE SODIUM LIQ 100 MG/10 ML UDC GT SCH ×2 (09:53→21:05)
[2022-10-31] MEDS: OMEPRAZOLE 20 MG CAPSULE.DR GT SCH (09:59)
[2022-10-31] MEDS: ASCORBIC ACID 500 MG TABLET GT SCH ×2 (09:59→21:05)
[2022-10-31] MEDS: ALPRAZOLAM 0.5 MG TABLET GT SCH ×2 (09:59→21:05)
[2022-10-31] MEDS: CHLORHEXIDINE GLUCONATE 15 ML UDC MM SCH ×2 (09:59→21:05)
[2022-10-31] MEDS: PROSTAT (PYXIS) 30 ML UDC GT SCH ×2 (09:59→17:00)
[2022-10-31 13:50] VITALS: BP 112/69; TEMP 97.9; O2SAT 100
[2022-10-31 13:52] VITALS: O2SAT 99
[2022-10-31] MEDS: ACETAMINOPHEN 650 MG/20 ML UDC- SA PATIENTS-PAIN ONLY GT PRN (18:05)
[2022-10-31 20:18] VITALS: BP 124/67; TEMP 99; O2SAT 99
[2022-10-31 22:55] VITALS: O2SAT 98
[2022-11-01] MEDS: ALBUTEROL FS 2.5 MG/3 ML VIAL.NEB NEB SCH ×4 (00:37→20:22)
[2022-11-01] MEDS: IPRATROPIUM NEB FS 0.5 MG/2.5 ML AMPUL.NEB NEB SCH ×4 (00:37→20:22)
[2022-11-01] MEDS: LORAZEPAM 1 MG TABLET GT PRN ×2 (02:18→12:56)
[2022-11-01] MEDS: BACLOFEN (10 MG) 10 MG TABLET PEG SCH ×3 (05:41→20:16)
[2022-11-01] MEDS: APIXABAN 5 MG TABLET GT SCH ×2 (05:42→18:06)
[2022-11-01 07:36] VITALS: BP 106/69; TEMP 97.7; O2SAT 98
[2022-11-01] MEDS: ASPIRIN 81 MG TAB.CHEW GT SCH (09:01)
[2022-11-01] MEDS: OMEPRAZOLE 20 MG CAPSULE.DR GT SCH (09:01)
[2022-11-01] MEDS: ALPRAZOLAM 0.5 MG TABLET GT SCH ×2 (09:01→20:16)
[2022-11-01] MEDS: CHLORHEXIDINE GLUCONATE 15 ML UDC MM SCH ×2 (09:01→20:16)
[2022-11-01] MEDS: PROSTAT (PYXIS) 30 ML UDC GT SCH ×2 (09:01→16:04)
[2022-11-01] MEDS: ASCORBIC ACID 500 MG TABLET GT SCH ×2 (09:01→20:16)
[2022-11-01] MEDS: DOCUSATE SODIUM LIQ 100 MG/10 ML UDC GT SCH ×2 (09:01→20:16)
[2022-11-01] MEDS: HYDROGEN PEROXIDE 480 ML BOTTLE TP SCH ×2 (09:49→20:22)
[2022-11-01] MEDS: JEVITY 1.2 CAL 1,000 ML BOTTLE GT PRN (11:19)
[2022-11-01 11:36] VITALS: O2SAT 98
[2022-11-01 12:40] VITALS: BP 140/89; TEMP 98.9; O2SAT 98
[2022-11-01 20:33] VITALS: BP 130/94; TEMP 98.3; O2SAT 99
[2022-11-02] VITALS (7 sets, daily range): BP systolic 124–131; BP diastolic 72–89; TEMP 98.2–99.1; O2SAT 98–100
[2022-11-02] MEDS: IPRATROPIUM NEB FS 0.5 MG/2.5 ML AMPUL.NEB NEB SCH ×4 (02:09→19:48)
[2022-11-02] MEDS: ALBUTEROL FS 2.5 MG/3 ML VIAL.NEB NEB SCH ×4 (02:09→19:48)
[2022-11-02] MEDS: BACLOFEN (10 MG) 10 MG TABLET PEG SCH ×3 (05:38→20:21)
[2022-11-02] MEDS: APIXABAN 5 MG TABLET GT SCH ×2 (05:38→18:33)
[2022-11-02] MEDS: HYDROGEN PEROXIDE 480 ML BOTTLE TP SCH ×2 (09:29→19:48)
[2022-11-02] MEDS: CHLORHEXIDINE GLUCONATE 15 ML UDC MM SCH ×2 (09:58→20:21)
[2022-11-02] MEDS: ALPRAZOLAM 0.5 MG TABLET GT SCH ×2 (09:58→20:21)
[2022-11-02] MEDS: ASCORBIC ACID 500 MG TABLET GT SCH ×2 (09:58→20:21)
[2022-11-02] MEDS: DOCUSATE SODIUM LIQ 100 MG/10 ML UDC GT SCH ×2 (09:58→20:21)
[2022-11-02] MEDS: ASPIRIN 81 MG TAB.CHEW GT SCH (09:58)
[2022-11-02] MEDS: PROSTAT (PYXIS) 30 ML UDC GT SCH ×2 (09:58→17:00)
[2022-11-02] MEDS: OMEPRAZOLE 20 MG CAPSULE.DR GT SCH (09:58)
[2022-11-02] MEDS: JEVITY 1.2 CAL 1,000 ML BOTTLE GT PRN (12:28)
[2022-11-02] MEDS: LORAZEPAM 1 MG TABLET GT PRN (15:06)
[2022-11-03 00:07] VITALS: BP 101/59; TEMP 98.1; O2SAT 100
[2022-11-03] MEDS: ALBUTEROL FS 2.5 MG/3 ML VIAL.NEB NEB SCH ×4 (01:22→20:05)
[2022-11-03] MEDS: IPRATROPIUM NEB FS 0.5 MG/2.5 ML AMPUL.NEB NEB SCH ×4 (01:22→20:05)
[2022-11-03] MEDS: APIXABAN 5 MG TABLET GT SCH ×2 (05:54→17:47)
[2022-11-03] MEDS: BACLOFEN (10 MG) 10 MG TABLET PEG SCH ×3 (05:54→20:09)
[2022-11-03] MEDS: JEVITY 1.2 CAL 1,000 ML BOTTLE GT PRN (05:56)
[2022-11-03 07:38] VITALS: BP 101/68; TEMP 98.9; O2SAT 100
[2022-11-03] MEDS: HYDROGEN PEROXIDE 480 ML BOTTLE TP SCH ×2 (09:00→20:05)
[2022-11-03] MEDS: ALPRAZOLAM 0.5 MG TABLET GT SCH ×2 (09:47→20:09)
[2022-11-03] MEDS: OMEPRAZOLE 20 MG CAPSULE.DR GT SCH (09:47)
[2022-11-03] MEDS: PROSTAT (PYXIS) 30 ML UDC GT SCH ×2 (09:47→17:45)
[2022-11-03] MEDS: ASPIRIN 81 MG TAB.CHEW GT SCH (09:47)
[2022-11-03] MEDS: ASCORBIC ACID 500 MG TABLET GT SCH ×2 (09:47→20:09)
[2022-11-03] MEDS: DOCUSATE SODIUM LIQ 100 MG/10 ML UDC GT SCH ×2 (09:47→20:09)
[2022-11-03] MEDS: CHLORHEXIDINE GLUCONATE 15 ML UDC MM SCH ×2 (09:48→20:09)
[2022-11-03 12:32] VITALS: BP 114/72; TEMP 98; O2SAT 99
[2022-11-03 15:20] VITALS: O2SAT 98
[2022-11-03] MEDS: ACETAMINOPHEN 650 MG/20 ML UDC- SA PATIENTS-PAIN ONLY GT PRN (17:48)
[2022-11-03 19:12] VITALS: BP 97/62; TEMP 97.6; O2SAT 100
[2022-11-03 22:43] VITALS: O2SAT 98
[2022-11-04 00:22] VITALS: BP 98/58; TEMP 98.4; O2SAT 97
[2022-11-04] MEDS: IPRATROPIUM NEB FS 0.5 MG/2.5 ML AMPUL.NEB NEB SCH ×4 (00:58→18:41)
[2022-11-04] MEDS: ALBUTEROL FS 2.5 MG/3 ML VIAL.NEB NEB SCH ×4 (00:58→18:41)
[2022-11-04] MEDS: JEVITY 1.2 CAL 1,000 ML BOTTLE GT PRN ×2 (01:11→17:17)
[2022-11-04] MEDS: BACLOFEN (10 MG) 10 MG TABLET PEG SCH ×3 (04:42→21:13)
[2022-11-04] MEDS: HYDROCODONE/APAP 5/325MG TABLET GT PRN (04:42)
[2022-11-04] MEDS: APIXABAN 5 MG TABLET GT SCH ×2 (05:37→17:36)
[2022-11-04] MEDS: HYDROGEN PEROXIDE 480 ML BOTTLE TP SCH ×2 (08:25→20:23)
[2022-11-04] MEDS: ASCORBIC ACID 500 MG TABLET GT SCH ×2 (09:04→21:13)
[2022-11-04] MEDS: PROSTAT (PYXIS) 30 ML UDC GT SCH ×2 (09:04→16:22)
[2022-11-04] MEDS: OMEPRAZOLE 20 MG CAPSULE.DR GT SCH (09:04)
[2022-11-04] MEDS: DOCUSATE SODIUM LIQ 100 MG/10 ML UDC GT SCH ×2 (09:04→21:13)
[2022-11-04] MEDS: ASPIRIN 81 MG TAB.CHEW GT SCH (09:04)
[2022-11-04] MEDS: CHLORHEXIDINE GLUCONATE 15 ML UDC MM SCH ×2 (09:04→21:13)
[2022-11-04] MEDS: ALPRAZOLAM 0.5 MG TABLET GT SCH ×2 (09:04→21:13)
[2022-11-04 10:24] VITALS: O2SAT 99
[2022-11-04] MEDS: ACETAMINOPHEN 650 MG/20 ML UDC- SA PATIENTS-PAIN ONLY GT PRN (16:31)
[2022-11-04 19:43] VITALS: BP 115/58; TEMP 98.4; O2SAT 99
[2022-11-04 22:13] VITALS: O2SAT 99
[2022-11-05 00:11] VITALS: BP 103/67; TEMP 98.2; O2SAT 100
[2022-11-05] MEDS: ALBUTEROL FS 2.5 MG/3 ML VIAL.NEB NEB SCH ×4 (00:35→19:34)
[2022-11-05] MEDS: IPRATROPIUM NEB FS 0.5 MG/2.5 ML AMPUL.NEB NEB SCH ×4 (00:35→19:34)
[2022-11-05] MEDS: BACLOFEN (10 MG) 10 MG TABLET PEG SCH ×3 (05:48→21:39)
[2022-11-05] MEDS: APIXABAN 5 MG TABLET GT SCH ×2 (05:48→18:07)
[2022-11-05 07:26] VITALS: BP 132/68; TEMP 98; O2SAT 100
[2022-11-05] MEDS: HYDROGEN PEROXIDE 480 ML BOTTLE TP SCH ×2 (07:50→19:34)
[2022-11-05] MEDS: ASCORBIC ACID 500 MG TABLET GT SCH ×2 (09:55→21:39)
[2022-11-05] MEDS: DOCUSATE SODIUM LIQ 100 MG/10 ML UDC GT SCH ×2 (09:55→21:39)
[2022-11-05] MEDS: CHLORHEXIDINE GLUCONATE 15 ML UDC MM SCH ×2 (09:55→21:39)
[2022-11-05] MEDS: ASPIRIN 81 MG TAB.CHEW GT SCH (09:55)
[2022-11-05] MEDS: OMEPRAZOLE 20 MG CAPSULE.DR GT SCH (09:55)
[2022-11-05] MEDS: PROSTAT (PYXIS) 30 ML UDC GT SCH ×2 (09:55→17:10)
[2022-11-05] MEDS: ALPRAZOLAM 0.5 MG TABLET GT SCH ×2 (09:55→21:39)
[2022-11-05 12:01] VITALS: BP 131/72; TEMP 98.2; O2SAT 100
[2022-11-05 13:56] VITALS: O2SAT 99
[2022-11-05] MEDS: JEVITY 1.2 CAL 1,000 ML BOTTLE GT PRN (17:10)
[2022-11-05] MEDS: ACETAMINOPHEN 650 MG/20 ML UDC- SA PATIENTS-PAIN ONLY GT PRN (17:11)
[2022-11-05] MEDS: LORAZEPAM 1 MG TABLET GT PRN (18:08)
[2022-11-05 20:08] VITALS: BP 139/75; TEMP 99.3; O2SAT 100
[2022-11-05 23:14] VITALS: O2SAT 100
[2022-11-06] VITALS (7 sets, daily range): BP systolic 103–131; BP diastolic 66–97; TEMP 97.4–99.3; O2SAT 96–100
[2022-11-06] MEDS: ALBUTEROL FS 2.5 MG/3 ML VIAL.NEB NEB SCH ×4 (01:49→19:49)
[2022-11-06] MEDS: IPRATROPIUM NEB FS 0.5 MG/2.5 ML AMPUL.NEB NEB SCH ×4 (01:49→19:49)
[2022-11-06] MEDS: BACLOFEN (10 MG) 10 MG TABLET PEG SCH ×3 (05:47→20:38)
[2022-11-06] MEDS: APIXABAN 5 MG TABLET GT SCH ×2 (05:48→18:07)
[2022-11-06] MEDS: ALPRAZOLAM 0.5 MG TABLET GT SCH ×2 (09:00→20:38)
[2022-11-06] MEDS: PROSTAT (PYXIS) 30 ML UDC GT SCH ×2 (09:00→17:00)
[2022-11-06] MEDS: ASPIRIN 81 MG TAB.CHEW GT SCH (09:00)
[2022-11-06] MEDS: CHLORHEXIDINE GLUCONATE 15 ML UDC MM SCH ×2 (09:00→20:38)
[2022-11-06] MEDS: DOCUSATE SODIUM LIQ 100 MG/10 ML UDC GT SCH ×2 (09:00→20:38)
[2022-11-06] MEDS: OMEPRAZOLE 20 MG CAPSULE.DR GT SCH (09:00)
[2022-11-06] MEDS: ASCORBIC ACID 500 MG TABLET GT SCH ×2 (09:00→20:38)
[2022-11-06] MEDS: HYDROGEN PEROXIDE 480 ML BOTTLE TP SCH ×2 (09:20→19:49)
[2022-11-06] MEDS: JEVITY 1.2 CAL 1,000 ML BOTTLE GT PRN (15:57)
[2022-11-06] MEDS: LORAZEPAM 1 MG TABLET GT PRN (15:58)
[2022-11-07] MEDS: IPRATROPIUM NEB FS 0.5 MG/2.5 ML AMPUL.NEB NEB SCH ×4 (01:27→20:00)
[2022-11-07] MEDS: ALBUTEROL FS 2.5 MG/3 ML VIAL.NEB NEB SCH ×4 (01:27→20:00)
[2022-11-07] MEDS: BACLOFEN (10 MG) 10 MG TABLET PEG SCH ×3 (05:26→21:50)
[2022-11-07] MEDS: APIXABAN 5 MG TABLET GT SCH ×2 (06:43→17:47)
[2022-11-07] MEDS: LORAZEPAM 1 MG TABLET GT PRN (06:44)
[2022-11-07] MEDS: JEVITY 1.2 CAL 1,000 ML BOTTLE GT PRN ×2 (06:44→13:59)
[2022-11-07 07:45] VITALS: BP 139/86; TEMP 98.9; O2SAT 98
[2022-11-07] MEDS: OMEPRAZOLE 20 MG CAPSULE.DR GT SCH (08:56)
[2022-11-07] MEDS: ASPIRIN 81 MG TAB.CHEW GT SCH (08:56)
[2022-11-07] MEDS: ASCORBIC ACID 500 MG TABLET GT SCH ×2 (08:56→21:30)
[2022-11-07] MEDS: DOCUSATE SODIUM LIQ 100 MG/10 ML UDC GT SCH ×2 (08:56→21:30)
[2022-11-07] MEDS: PROSTAT (PYXIS) 30 ML UDC GT SCH ×2 (08:56→17:21)
[2022-11-07] MEDS: ALPRAZOLAM 0.5 MG TABLET GT SCH ×2 (08:56→21:45)
[2022-11-07] MEDS: CHLORHEXIDINE GLUCONATE 15 ML UDC MM SCH ×2 (08:56→21:30)
[2022-11-07] MEDS: HYDROGEN PEROXIDE 480 ML BOTTLE TP SCH ×2 (09:07→20:00)
[2022-11-07 11:24] VITALS: O2SAT 96
[2022-11-07 11:46] VITALS: BP 151/89; TEMP 98.5; O2SAT 100
[2022-11-07] MEDS: HYDROCODONE/APAP 5/325MG TABLET GT PRN (12:48)
[2022-11-07 19:42] VITALS: BP 119/82; TEMP 97.4; O2SAT 100
[2022-11-07 22:00] VITALS: BP 119/82; TEMP 97.4; O2SAT 100
[2022-11-07 22:56] VITALS: O2SAT 97
[2022-11-08] MEDS: IPRATROPIUM NEB FS 0.5 MG/2.5 ML AMPUL.NEB NEB SCH ×4 (01:52→20:14)
[2022-11-08] MEDS: ALBUTEROL FS 2.5 MG/3 ML VIAL.NEB NEB SCH ×4 (01:52→20:14)
[2022-11-08] MEDS: BACLOFEN (10 MG) 10 MG TABLET PEG SCH ×3 (05:20→20:23)
[2022-11-08] MEDS: APIXABAN 5 MG TABLET GT SCH ×2 (05:49→17:31)
[2022-11-08 07:25] VITALS: BP 105/59; TEMP 98.5; O2SAT 100
[2022-11-08] MEDS: HYDROGEN PEROXIDE 480 ML BOTTLE TP SCH ×2 (09:22→20:15)
[2022-11-08] MEDS: DOCUSATE SODIUM LIQ 100 MG/10 ML UDC GT SCH ×2 (09:34→20:22)
[2022-11-08] MEDS: CHLORHEXIDINE GLUCONATE 15 ML UDC MM SCH ×2 (09:34→20:22)
[2022-11-08] MEDS: PROSTAT (PYXIS) 30 ML UDC GT SCH ×2 (09:34→16:30)
[2022-11-08] MEDS: ASPIRIN 81 MG TAB.CHEW GT SCH (09:34)
[2022-11-08] MEDS: ALPRAZOLAM 0.5 MG TABLET GT SCH ×2 (09:34→21:00)
[2022-11-08] MEDS: OMEPRAZOLE 20 MG CAPSULE.DR GT SCH (09:34)
[2022-11-08] MEDS: ASCORBIC ACID 500 MG TABLET GT SCH ×2 (09:34→20:22)
[2022-11-08] MEDS: JEVITY 1.2 CAL 1,000 ML BOTTLE GT PRN (11:07)
[2022-11-08 12:12] VITALS: O2SAT 98
[2022-11-08 12:25] VITALS: BP 118/57; TEMP 98.6; O2SAT 99
[2022-11-08] MEDS: ACETAMINOPHEN 650 MG/20 ML UDC- SA PATIENTS-PAIN ONLY GT PRN (12:34)
[2022-11-08] MEDS: LORAZEPAM 1 MG TABLET GT PRN (14:03)
[2022-11-08] MEDS: HYDROCODONE/APAP 5/325MG TABLET GT PRN (18:34)
[2022-11-08 20:43] VITALS: BP 115/68; TEMP 98.7; O2SAT 100
[2022-11-08 22:29] VITALS: O2SAT 99
[2022-11-09] MEDS: ALBUTEROL FS 2.5 MG/3 ML VIAL.NEB NEB SCH ×4 (01:36→20:11)
[2022-11-09] MEDS: IPRATROPIUM NEB FS 0.5 MG/2.5 ML AMPUL.NEB NEB SCH ×4 (01:36→20:11)
[2022-11-09] MEDS: APIXABAN 5 MG TABLET GT SCH ×2 (05:36→18:54)
[2022-11-09] MEDS: BACLOFEN (10 MG) 10 MG TABLET PEG SCH ×3 (05:36→21:10)
[2022-11-09 07:38] VITALS: BP 140/91; TEMP 98.8; O2SAT 95
[2022-11-09] MEDS: HYDROGEN PEROXIDE 480 ML BOTTLE TP SCH ×2 (07:38→20:11)
[2022-11-09] MEDS: OMEPRAZOLE 20 MG CAPSULE.DR GT SCH (09:00)
[2022-11-09] MEDS: DOCUSATE SODIUM LIQ 100 MG/10 ML UDC GT SCH ×2 (09:00→21:10)
[2022-11-09] MEDS: CHLORHEXIDINE GLUCONATE 15 ML UDC MM SCH ×2 (09:00→21:10)
[2022-11-09] MEDS: ASPIRIN 81 MG TAB.CHEW GT SCH (09:00)
[2022-11-09] MEDS: PROSTAT (PYXIS) 30 ML UDC GT SCH ×2 (09:00→17:00)
[2022-11-09] MEDS: ASCORBIC ACID 500 MG TABLET GT SCH ×2 (09:00→21:10)
[2022-11-09] MEDS: ALPRAZOLAM 0.5 MG TABLET GT SCH ×2 (09:00→21:10)
[2022-11-09 11:50] VITALS: O2SAT 98
[2022-11-09] MEDS: JEVITY 1.2 CAL 1,000 ML BOTTLE GT PRN (12:43)
[2022-11-09 14:35] VITALS: BP 115/76; TEMP 97.6; O2SAT 98
[2022-11-09] MEDS: LORAZEPAM 1 MG TABLET GT PRN (15:10)
[2022-11-09 20:00] VITALS: BP 103/57; TEMP 98.4; O2SAT 99
[2022-11-09] MEDS: ACETAMINOPHEN 650 MG/20 ML UDC- SA PATIENTS-PAIN ONLY GT PRN (22:00)
[2022-11-10] MEDS: LORAZEPAM 1 MG TABLET GT PRN ×2 (00:13→16:04)
[2022-11-10] MEDS: ALBUTEROL FS 2.5 MG/3 ML VIAL.NEB NEB SCH ×4 (01:27→19:46)
[2022-11-10] MEDS: IPRATROPIUM NEB FS 0.5 MG/2.5 ML AMPUL.NEB NEB SCH ×4 (01:27→19:46)
[2022-11-10] MEDS: HYDROCODONE/APAP 5/325MG TABLET GT PRN (03:56)
[2022-11-10 04:55] VITALS: O2SAT 98
[2022-11-10] MEDS: BACLOFEN (10 MG) 10 MG TABLET PEG SCH ×3 (05:40→21:03)
[2022-11-10] MEDS: APIXABAN 5 MG TABLET GT SCH ×2 (05:54→17:30)
[2022-11-10] MEDS: JEVITY 1.2 CAL 1,000 ML BOTTLE GT PRN (05:54)
[2022-11-10 07:17] VITALS: BP 118/70; TEMP 98.8; O2SAT 100
[2022-11-10] MEDS: ASPIRIN 81 MG TAB.CHEW GT SCH (09:13)
[2022-11-10] MEDS: DOCUSATE SODIUM LIQ 100 MG/10 ML UDC GT SCH ×2 (09:14→21:03)
[2022-11-10] MEDS: OMEPRAZOLE 20 MG CAPSULE.DR GT SCH (09:15)
[2022-11-10] MEDS: ALPRAZOLAM 0.5 MG TABLET GT SCH ×2 (09:16→21:03)
[2022-11-10] MEDS: ASCORBIC ACID 500 MG TABLET GT SCH ×2 (09:16→21:03)
[2022-11-10] MEDS: PROSTAT (PYXIS) 30 ML UDC GT SCH ×2 (09:16→16:03)
[2022-11-10] MEDS: CHLORHEXIDINE GLUCONATE 15 ML UDC MM SCH ×2 (09:17→21:03)
[2022-11-10] MEDS: HYDROGEN PEROXIDE 480 ML BOTTLE TP SCH ×2 (09:20→19:46)
[2022-11-10 10:20] VITALS: O2SAT 100
[2022-11-10 11:42] VITALS: BP 114/70; TEMP 97.5; O2SAT 98
[2022-11-10 19:49] VITALS: BP 137/91; TEMP 98.9; O2SAT 98
[2022-11-10 22:41] VITALS: O2SAT 98
[2022-11-11] MEDS: JEVITY 1.2 CAL 1,000 ML BOTTLE GT PRN ×2 (00:30→21:05)
[2022-11-11 00:36] VITALS: BP 121/87; TEMP 98.5; O2SAT 100
[2022-11-11] MEDS: IPRATROPIUM NEB FS 0.5 MG/2.5 ML AMPUL.NEB NEB SCH ×4 (01:31→19:19)
[2022-11-11] MEDS: ALBUTEROL FS 2.5 MG/3 ML VIAL.NEB NEB SCH ×4 (01:31→19:19)
[2022-11-11] MEDS: BACLOFEN (10 MG) 10 MG TABLET PEG SCH ×3 (05:40→21:03)
[2022-11-11] MEDS: APIXABAN 5 MG TABLET GT SCH ×2 (05:41→18:36)
[2022-11-11 07:31] VITALS: BP 121/81; TEMP 98.9; O2SAT 100
[2022-11-11] MEDS: HYDROGEN PEROXIDE 480 ML BOTTLE TP SCH ×2 (09:33→23:27)
[2022-11-11] MEDS: ALPRAZOLAM 0.5 MG TABLET GT SCH ×2 (09:41→21:03)
[2022-11-11] MEDS: DOCUSATE SODIUM LIQ 100 MG/10 ML UDC GT SCH ×2 (09:44→21:03)
[2022-11-11] MEDS: ASPIRIN 81 MG TAB.CHEW GT SCH (09:44)
[2022-11-11] MEDS: PROSTAT (PYXIS) 30 ML UDC GT SCH ×2 (09:46→17:35)
[2022-11-11] MEDS: ASCORBIC ACID 500 MG TABLET GT SCH ×2 (09:46→21:03)
[2022-11-11] MEDS: OMEPRAZOLE 20 MG CAPSULE.DR GT SCH (09:46)
[2022-11-11] MEDS: CHLORHEXIDINE GLUCONATE 15 ML UDC MM SCH ×2 (09:46→21:03)
[2022-11-11 10:51] VITALS: O2SAT 98
[2022-11-11 19:05] VITALS: BP 123/78; TEMP 98.9; O2SAT 100
[2022-11-11] MEDS: HYDROCODONE/APAP 5/325MG TABLET GT PRN (22:37)
[2022-11-11 23:25] VITALS: O2SAT 100
[2022-11-11 23:48] VITALS: BP 100/74; TEMP 99.1; O2SAT 100
[2022-11-12] MEDS: IPRATROPIUM NEB FS 0.5 MG/2.5 ML AMPUL.NEB NEB SCH ×4 (01:33→18:33)
[2022-11-12] MEDS: ALBUTEROL FS 2.5 MG/3 ML VIAL.NEB NEB SCH ×4 (01:33→18:33)
[2022-11-12] MEDS: BACLOFEN (10 MG) 10 MG TABLET PEG SCH ×3 (05:36→21:18)
[2022-11-12] MEDS: APIXABAN 5 MG TABLET GT SCH ×2 (05:37→18:42)
[2022-11-12 07:28] VITALS: BP 103/66; TEMP 97.7; O2SAT 100
[2022-11-12] MEDS: PROSTAT (PYXIS) 30 ML UDC GT SCH ×2 (08:47→16:42)
[2022-11-12] MEDS: ASCORBIC ACID 500 MG TABLET GT SCH ×2 (08:47→21:18)
[2022-11-12] MEDS: DOCUSATE SODIUM LIQ 100 MG/10 ML UDC GT SCH ×2 (08:47→21:18)
[2022-11-12] MEDS: ASPIRIN 81 MG TAB.CHEW GT SCH (08:47)
[2022-11-12] MEDS: OMEPRAZOLE 20 MG CAPSULE.DR GT SCH (08:47)
[2022-11-12] MEDS: CHLORHEXIDINE GLUCONATE 15 ML UDC MM SCH ×2 (08:48→21:18)
[2022-11-12] MEDS: ALPRAZOLAM 0.5 MG TABLET GT SCH ×2 (08:48→21:18)
[2022-11-12] MEDS: HYDROGEN PEROXIDE 480 ML BOTTLE TP SCH ×2 (09:46→20:21)
[2022-11-12 10:07] VITALS: O2SAT 100
[2022-11-12 14:50] VITALS: BP 115/93; TEMP 98.6; O2SAT 100
[2022-11-12] MEDS: LORAZEPAM 1 MG TABLET GT PRN (16:42)
[2022-11-12] MEDS: JEVITY 1.2 CAL 1,000 ML BOTTLE GT PRN (18:46)
[2022-11-12] MEDS: HYDROCODONE/APAP 5/325MG TABLET GT PRN (19:11)
[2022-11-12 20:25] VITALS: BP 145/78; TEMP 99.1; O2SAT 100
[2022-11-12 22:29] VITALS: O2SAT 98
[2022-11-13] MEDS: IPRATROPIUM NEB FS 0.5 MG/2.5 ML AMPUL.NEB NEB SCH ×4 (00:36→19:02)
[2022-11-13] MEDS: ALBUTEROL FS 2.5 MG/3 ML VIAL.NEB NEB SCH ×4 (00:36→19:02)
[2022-11-13] MEDS: APIXABAN 5 MG TABLET GT SCH ×2 (05:36→18:51)
[2022-11-13] MEDS: BACLOFEN (10 MG) 10 MG TABLET PEG SCH ×3 (05:36→21:26)
[2022-11-13 07:23] VITALS: BP 114/66; TEMP 98.3; O2SAT 97
[2022-11-13] MEDS: HYDROGEN PEROXIDE 480 ML BOTTLE TP SCH ×2 (09:29→20:05)
[2022-11-13] MEDS: OMEPRAZOLE 20 MG CAPSULE.DR GT SCH (09:46)
[2022-11-13] MEDS: ASPIRIN 81 MG TAB.CHEW GT SCH (09:46)
[2022-11-13] MEDS: CHLORHEXIDINE GLUCONATE 15 ML UDC MM SCH ×2 (09:46→21:26)
[2022-11-13] MEDS: ASCORBIC ACID 500 MG TABLET GT SCH ×2 (09:46→21:25)
[2022-11-13] MEDS: ALPRAZOLAM 0.5 MG TABLET GT SCH ×2 (09:46→21:26)
[2022-11-13] MEDS: DOCUSATE SODIUM LIQ 100 MG/10 ML UDC GT SCH ×2 (09:46→21:25)
[2022-11-13] MEDS: PROSTAT (PYXIS) 30 ML UDC GT SCH ×2 (09:46→16:50)
[2022-11-13 12:22] VITALS: BP 98/66; TEMP 98.8; O2SAT 98
[2022-11-13 12:29] VITALS: O2SAT 100
[2022-11-13] MEDS: JEVITY 1.2 CAL 1,000 ML BOTTLE GT PRN (15:13)
[2022-11-13] MEDS: LORAZEPAM 1 MG TABLET GT PRN (16:49)
[2022-11-13 19:47] VITALS: BP 148/90; TEMP 99.1; O2SAT 99
[2022-11-13 22:40] VITALS: O2SAT 100
[2022-11-14] MEDS: IPRATROPIUM NEB FS 0.5 MG/2.5 ML AMPUL.NEB NEB SCH ×4 (02:04→20:11)
[2022-11-14] MEDS: ALBUTEROL FS 2.5 MG/3 ML VIAL.NEB NEB SCH ×4 (02:04→20:11)
[2022-11-14] MEDS: APIXABAN 5 MG TABLET GT SCH ×2 (05:03→18:02)
[2022-11-14] MEDS: BACLOFEN (10 MG) 10 MG TABLET PEG SCH ×3 (05:03→21:07)
[2022-11-14] MEDS: OMEPRAZOLE 20 MG CAPSULE.DR GT SCH (09:00)
[2022-11-14] MEDS: ASCORBIC ACID 500 MG TABLET GT SCH ×2 (09:00→21:07)
[2022-11-14] MEDS: CHLORHEXIDINE GLUCONATE 15 ML UDC MM SCH ×2 (09:00→21:07)
[2022-11-14] MEDS: PROSTAT (PYXIS) 30 ML UDC GT SCH ×2 (09:00→17:14)
[2022-11-14] MEDS: DOCUSATE SODIUM LIQ 100 MG/10 ML UDC GT SCH ×2 (09:00→21:07)
[2022-11-14] MEDS: ASPIRIN 81 MG TAB.CHEW GT SCH (09:00)
[2022-11-14 09:10] VITALS: BP 149/89; TEMP 98.5; O2SAT 100
[2022-11-14] MEDS: HYDROGEN PEROXIDE 480 ML BOTTLE TP SCH ×2 (09:22→20:11)
[2022-11-14] MEDS: ALPRAZOLAM 0.5 MG TABLET GT SCH ×2 (09:44→21:07)
[2022-11-14 10:21] VITALS: O2SAT 99
[2022-11-14 19:51] VITALS: BP 113/67; TEMP 99.1; O2SAT 98
[2022-11-14] MEDS: METOPROLOL TARTRATE 25 MG TABLET GT SCH (21:36)
[2022-11-15 00:14] VITALS: O2SAT 100
[2022-11-15] MEDS: IPRATROPIUM NEB FS 0.5 MG/2.5 ML AMPUL.NEB NEB SCH ×4 (02:06→19:52)
[2022-11-15] MEDS: ALBUTEROL FS 2.5 MG/3 ML VIAL.NEB NEB SCH ×4 (02:06→19:52)
[2022-11-15] MEDS: APIXABAN 5 MG TABLET GT SCH ×2 (05:33→18:33)
[2022-11-15] MEDS: BACLOFEN (10 MG) 10 MG TABLET PEG SCH ×3 (05:33→20:34)
[2022-11-15 08:32] VITALS: BP 101/68; TEMP 97.7; O2SAT 100
[2022-11-15] MEDS: ASCORBIC ACID 500 MG TABLET GT SCH ×2 (09:00→20:34)
[2022-11-15] MEDS: METOPROLOL TARTRATE 25 MG TABLET GT SCH ×2 (09:00→20:34)
[2022-11-15] MEDS: CHLORHEXIDINE GLUCONATE 15 ML UDC MM SCH ×2 (09:00→20:34)
[2022-11-15] MEDS: PROSTAT (PYXIS) 30 ML UDC GT SCH ×2 (09:00→17:38)
[2022-11-15] MEDS: ASPIRIN 81 MG TAB.CHEW GT SCH (09:00)
[2022-11-15] MEDS: DOCUSATE SODIUM LIQ 100 MG/10 ML UDC GT SCH ×2 (09:00→20:34)
[2022-11-15] MEDS: OMEPRAZOLE 20 MG CAPSULE.DR GT SCH (09:00)
[2022-11-15] MEDS: ALPRAZOLAM 0.5 MG TABLET GT SCH ×2 (09:30→20:34)
[2022-11-15] MEDS: HYDROGEN PEROXIDE 480 ML BOTTLE TP SCH ×2 (09:50→21:04)
[2022-11-15 10:43] VITALS: O2SAT 100
[2022-11-15 12:11] VITALS: BP 127/75; TEMP 97.5; O2SAT 100
[2022-11-15] MEDS: JEVITY 1.2 CAL 1,000 ML BOTTLE GT PRN (14:07)
[2022-11-15 19:59] VITALS: BP 103/70; TEMP 97.6; O2SAT 98
[2022-11-15] MEDS: ACETAMINOPHEN 650 MG/20 ML UDC- SA PATIENTS-PAIN ONLY GT PRN (20:35)
[2022-11-15 22:15] VITALS: O2SAT 100
[2022-11-16] MEDS: IPRATROPIUM NEB FS 0.5 MG/2.5 ML AMPUL.NEB NEB SCH ×4 (01:40→19:43)
[2022-11-16] MEDS: ALBUTEROL FS 2.5 MG/3 ML VIAL.NEB NEB SCH ×4 (01:40→19:43)
[2022-11-16] MEDS: BACLOFEN (10 MG) 10 MG TABLET PEG SCH ×3 (05:53→20:25)
[2022-11-16] MEDS: APIXABAN 5 MG TABLET GT SCH ×2 (05:54→17:28)
[2022-11-16 07:15] VITALS: BP 109/71; TEMP 99; O2SAT 100
[2022-11-16] MEDS: METOPROLOL TARTRATE 25 MG TABLET GT SCH ×2 (09:00→20:25)
[2022-11-16] MEDS: ASCORBIC ACID 500 MG TABLET GT SCH ×2 (09:00→20:25)
[2022-11-16] MEDS: DOCUSATE SODIUM LIQ 100 MG/10 ML UDC GT SCH ×2 (09:00→20:23)
[2022-11-16] MEDS: CHLORHEXIDINE GLUCONATE 15 ML UDC MM SCH ×2 (09:00→20:25)
[2022-11-16] MEDS: ALPRAZOLAM 0.5 MG TABLET GT SCH ×2 (09:00→20:25)
[2022-11-16] MEDS: ASPIRIN 81 MG TAB.CHEW GT SCH (09:00)
[2022-11-16] MEDS: PROSTAT (PYXIS) 30 ML UDC GT SCH ×2 (09:00→16:46)
[2022-11-16] MEDS: OMEPRAZOLE 20 MG CAPSULE.DR GT SCH (09:00)
[2022-11-16] MEDS: HYDROGEN PEROXIDE 480 ML BOTTLE TP SCH ×2 (09:22→19:43)
[2022-11-16 10:49] VITALS: O2SAT 100
[2022-11-16 12:40] VITALS: BP 116/74; TEMP 98.7; O2SAT 99
[2022-11-16] MEDS: JEVITY 1.2 CAL 1,000 ML BOTTLE GT PRN ×2 (16:46→16:54)
[2022-11-16 19:56] VITALS: BP 93/50; TEMP 98.1; O2SAT 100
[2022-11-16 22:00] VITALS: BP 93/50; TEMP 98.1; O2SAT 100
[2022-11-16 22:03] VITALS: O2SAT 100
[2022-11-17] MEDS: ALBUTEROL FS 2.5 MG/3 ML VIAL.NEB NEB SCH ×4 (01:21→19:53)
[2022-11-17] MEDS: IPRATROPIUM NEB FS 0.5 MG/2.5 ML AMPUL.NEB NEB SCH ×4 (01:21→19:53)
[2022-11-17] MEDS: BACLOFEN (10 MG) 10 MG TABLET PEG SCH ×3 (05:01→20:45)
[2022-11-17] MEDS: APIXABAN 5 MG TABLET GT SCH ×2 (05:41→17:44)
[2022-11-17 07:44] VITALS: BP 122/64; TEMP 97.5; O2SAT 98
[2022-11-17] MEDS: HYDROGEN PEROXIDE 480 ML BOTTLE TP SCH ×2 (07:59→19:53)
[2022-11-17] MEDS: ASPIRIN 81 MG TAB.CHEW GT SCH (08:57)
[2022-11-17] MEDS: DOCUSATE SODIUM LIQ 100 MG/10 ML UDC GT SCH ×2 (08:57→20:45)
[2022-11-17] MEDS: OMEPRAZOLE 20 MG CAPSULE.DR GT SCH (08:58)
[2022-11-17] MEDS: ASCORBIC ACID 500 MG TABLET GT SCH ×2 (08:58→20:44)
[2022-11-17] MEDS: ALPRAZOLAM 0.5 MG TABLET GT SCH ×2 (08:58→20:45)
[2022-11-17] MEDS: PROSTAT (PYXIS) 30 ML UDC GT SCH ×2 (08:58→17:44)
[2022-11-17] MEDS: CHLORHEXIDINE GLUCONATE 15 ML UDC MM SCH ×2 (08:58→20:45)
[2022-11-17] MEDS: METOPROLOL TARTRATE 25 MG TABLET GT SCH ×2 (08:58→20:44)
[2022-11-17 11:06] VITALS: O2SAT 97
[2022-11-17 12:40] VITALS: BP 126/67; TEMP 97.6; O2SAT 99
[2022-11-17 19:50] VITALS: BP 92/55; TEMP 97.7; O2SAT 100
[2022-11-17 22:07] VITALS: O2SAT 100
[2022-11-18 00:02] VITALS: BP 105/54; TEMP 97.5; O2SAT 100
[2022-11-18] MEDS: IPRATROPIUM NEB FS 0.5 MG/2.5 ML AMPUL.NEB NEB SCH ×4 (01:46→20:27)
[2022-11-18] MEDS: ALBUTEROL FS 2.5 MG/3 ML VIAL.NEB NEB SCH ×4 (01:46→20:28)
[2022-11-18] MEDS: BACLOFEN (10 MG) 10 MG TABLET PEG SCH ×3 (05:15→20:04)
[2022-11-18] MEDS: APIXABAN 5 MG TABLET GT SCH ×2 (05:37→17:34)
[2022-11-18] MEDS: DOCUSATE SODIUM LIQ 100 MG/10 ML UDC GT SCH ×2 (09:42→20:04)
[2022-11-18] MEDS: ASPIRIN 81 MG TAB.CHEW GT SCH (09:42)
[2022-11-18] MEDS: OMEPRAZOLE 20 MG CAPSULE.DR GT SCH (09:44)
[2022-11-18] MEDS: ASCORBIC ACID 500 MG TABLET GT SCH ×2 (09:44→20:04)
[2022-11-18] MEDS: CHLORHEXIDINE GLUCONATE 15 ML UDC MM SCH ×2 (09:44→20:04)
[2022-11-18] MEDS: ALPRAZOLAM 0.5 MG TABLET GT SCH ×2 (09:44→20:04)
[2022-11-18] MEDS: PROSTAT (PYXIS) 30 ML UDC GT SCH ×2 (09:44→17:02)
[2022-11-18] MEDS: METOPROLOL TARTRATE 25 MG TABLET GT SCH ×2 (09:49→20:04)
[2022-11-18] MEDS: HYDROGEN PEROXIDE 480 ML BOTTLE TP SCH ×2 (10:00→20:28)
[2022-11-18 10:42] VITALS: O2SAT 100
[2022-11-18] MEDS: JEVITY 1.2 CAL 1,000 ML BOTTLE GT PRN (17:07)
[2022-11-18 19:36] VITALS: BP 132/81; TEMP 98.2; O2SAT 99
[2022-11-18 23:52] VITALS: O2SAT 100
[2022-11-19 01:42] VITALS: BP 123/72; TEMP 98.3; O2SAT 97
[2022-11-19] MEDS: IPRATROPIUM NEB FS 0.5 MG/2.5 ML AMPUL.NEB NEB SCH ×4 (02:13→20:08)
[2022-11-19] MEDS: ALBUTEROL FS 2.5 MG/3 ML VIAL.NEB NEB SCH ×4 (02:13→20:08)
[2022-11-19] MEDS: BACLOFEN (10 MG) 10 MG TABLET PEG SCH ×3 (05:10→20:45)
[2022-11-19] MEDS: APIXABAN 5 MG TABLET GT SCH ×2 (06:36→17:33)
[2022-11-19] MEDS: HYDROGEN PEROXIDE 480 ML BOTTLE TP SCH ×2 (07:48→20:08)
[2022-11-19 08:00] VITALS: BP 123/62; TEMP 98.3; O2SAT 100
[2022-11-19] MEDS: CHLORHEXIDINE GLUCONATE 15 ML UDC MM SCH ×2 (08:36→20:45)
[2022-11-19] MEDS: ALPRAZOLAM 0.5 MG TABLET GT SCH ×2 (08:36→20:45)
[2022-11-19] MEDS: ASCORBIC ACID 500 MG TABLET GT SCH ×2 (08:36→20:45)
[2022-11-19] MEDS: DOCUSATE SODIUM LIQ 100 MG/10 ML UDC GT SCH ×2 (08:36→20:44)
[2022-11-19] MEDS: OMEPRAZOLE 20 MG CAPSULE.DR GT SCH (08:36)
[2022-11-19] MEDS: ASPIRIN 81 MG TAB.CHEW GT SCH (08:36)
[2022-11-19] MEDS: PROSTAT (PYXIS) 30 ML UDC GT SCH ×2 (08:36→17:20)
[2022-11-19] MEDS: METOPROLOL TARTRATE 25 MG TABLET GT SCH ×2 (08:36→20:45)
[2022-11-19 08:51] VITALS: O2SAT 100
[2022-11-19] MEDS: HYDROCODONE/APAP 5/325MG TABLET GT PRN (09:51)
[2022-11-19] MEDS: JEVITY 1.2 CAL 1,000 ML BOTTLE GT PRN (13:03)
[2022-11-19 13:53] VITALS: O2SAT 99
[2022-11-19 19:49] VITALS: BP 114/70; TEMP 97.6; O2SAT 98
[2022-11-19 22:04] VITALS: O2SAT 100
[2022-11-20 00:13] VITALS: BP 122/73; TEMP 98; O2SAT 99
[2022-11-20] MEDS: ALBUTEROL FS 2.5 MG/3 ML VIAL.NEB NEB SCH ×4 (01:39→20:02)
[2022-11-20] MEDS: IPRATROPIUM NEB FS 0.5 MG/2.5 ML AMPUL.NEB NEB SCH ×4 (01:39→20:02)
[2022-11-20] MEDS: APIXABAN 5 MG TABLET GT SCH ×2 (05:34→19:09)
[2022-11-20] MEDS: BACLOFEN (10 MG) 10 MG TABLET PEG SCH ×3 (05:34→21:05)
[2022-11-20 07:54] VITALS: BP 128/71; TEMP 98.8; O2SAT 100
[2022-11-20] MEDS: HYDROGEN PEROXIDE 480 ML BOTTLE TP SCH ×2 (08:10→20:02)
[2022-11-20] MEDS: OMEPRAZOLE 20 MG CAPSULE.DR GT SCH (09:49)
[2022-11-20] MEDS: METOPROLOL TARTRATE 25 MG TABLET GT SCH ×2 (09:49→21:03)
[2022-11-20] MEDS: DOCUSATE SODIUM LIQ 100 MG/10 ML UDC GT SCH ×2 (09:49→21:03)
[2022-11-20] MEDS: ASPIRIN 81 MG TAB.CHEW GT SCH (09:49)
[2022-11-20] MEDS: PROSTAT (PYXIS) 30 ML UDC GT SCH ×2 (09:50→17:03)
[2022-11-20] MEDS: ALPRAZOLAM 0.5 MG TABLET GT SCH ×2 (09:50→21:04)
[2022-11-20] MEDS: ASCORBIC ACID 500 MG TABLET GT SCH ×2 (09:50→21:04)
[2022-11-20] MEDS: CHLORHEXIDINE GLUCONATE 15 ML UDC MM SCH ×2 (09:50→21:05)
[2022-11-20 10:15] VITALS: O2SAT 100
[2022-11-20] MEDS: JEVITY 1.2 CAL 1,000 ML BOTTLE GT PRN (11:58)
[2022-11-20] MEDS: LORAZEPAM 1 MG TABLET GT PRN (17:04)
[2022-11-20 20:14] VITALS: BP 110/58; TEMP 99; O2SAT 100
[2022-11-20 22:12] VITALS: O2SAT 100
[2022-11-21] MEDS: IPRATROPIUM NEB FS 0.5 MG/2.5 ML AMPUL.NEB NEB SCH ×4 (01:53→20:19)
[2022-11-21] MEDS: ALBUTEROL FS 2.5 MG/3 ML VIAL.NEB NEB SCH ×4 (01:53→20:19)
[2022-11-21] MEDS: BACLOFEN (10 MG) 10 MG TABLET PEG SCH ×3 (05:26→20:47)
[2022-11-21] MEDS: JEVITY 1.2 CAL 1,000 ML BOTTLE GT PRN (05:28)
[2022-11-21] MEDS: APIXABAN 5 MG TABLET GT SCH ×2 (06:40→18:45)
[2022-11-21 07:49] VITALS: BP 142/90; TEMP 97; O2SAT 92
[2022-11-21] MEDS: HYDROGEN PEROXIDE 480 ML BOTTLE TP SCH ×2 (08:10→20:20)
[2022-11-21] MEDS: OMEPRAZOLE 20 MG CAPSULE.DR GT SCH (09:00)
[2022-11-21] MEDS: ALPRAZOLAM 0.5 MG TABLET GT SCH ×2 (09:00→20:47)
[2022-11-21] MEDS: ASPIRIN 81 MG TAB.CHEW GT SCH (09:00)
[2022-11-21] MEDS: METOPROLOL TARTRATE 25 MG TABLET GT SCH ×2 (09:00→20:46)
[2022-11-21] MEDS: DOCUSATE SODIUM LIQ 100 MG/10 ML UDC GT SCH ×2 (09:00→20:45)
[2022-11-21] MEDS: CHLORHEXIDINE GLUCONATE 15 ML UDC MM SCH ×2 (09:00→20:47)
[2022-11-21] MEDS: PROSTAT (PYXIS) 30 ML UDC GT SCH ×2 (09:00→17:46)
[2022-11-21] MEDS: ASCORBIC ACID 500 MG TABLET GT SCH ×2 (09:00→20:47)
[2022-11-21 10:14] VITALS: O2SAT 100
[2022-11-21 12:07] VITALS: BP 119/76; TEMP 97.7; O2SAT 100
[2022-11-21 20:04] VITALS: BP 131/94; TEMP 97.7; O2SAT 95
[2022-11-22 00:17] VITALS: O2SAT 100
[2022-11-22] MEDS: IPRATROPIUM NEB FS 0.5 MG/2.5 ML AMPUL.NEB NEB SCH ×4 (02:19→20:27)
[2022-11-22] MEDS: ALBUTEROL FS 2.5 MG/3 ML VIAL.NEB NEB SCH ×4 (02:19→20:27)
[2022-11-22] MEDS: JEVITY 1.2 CAL 1,000 ML BOTTLE GT PRN (05:22)
[2022-11-22] MEDS: APIXABAN 5 MG TABLET GT SCH ×2 (05:25→19:11)
[2022-11-22] MEDS: BACLOFEN (10 MG) 10 MG TABLET PEG SCH ×3 (05:25→20:50)
[2022-11-22] MEDS: HYDROGEN PEROXIDE 480 ML BOTTLE TP SCH ×2 (07:45→20:27)
[2022-11-22 07:47] VITALS: BP 118/80; TEMP 98.5; O2SAT 97
[2022-11-22] MEDS: ASPIRIN 81 MG TAB.CHEW GT SCH (09:56)
[2022-11-22] MEDS: DOCUSATE SODIUM LIQ 100 MG/10 ML UDC GT SCH ×2 (09:56→20:48)
[2022-11-22] MEDS: ASCORBIC ACID 500 MG TABLET GT SCH ×2 (09:57→20:49)
[2022-11-22] MEDS: OMEPRAZOLE 20 MG CAPSULE.DR GT SCH (09:57)
[2022-11-22] MEDS: METOPROLOL TARTRATE 25 MG TABLET GT SCH ×2 (09:57→20:49)
[2022-11-22] MEDS: PROSTAT (PYXIS) 30 ML UDC GT SCH ×2 (09:57→17:20)
[2022-11-22] MEDS: CHLORHEXIDINE GLUCONATE 15 ML UDC MM SCH ×2 (09:57→20:50)
[2022-11-22] MEDS: ALPRAZOLAM 0.5 MG TABLET GT SCH ×2 (09:57→20:49)
[2022-11-22 10:59] VITALS: O2SAT 96
[2022-11-22 14:00] VITALS: BP 116/78; TEMP 99; O2SAT 98
[2022-11-22 20:26] VITALS: BP 128/72; TEMP 98.7; O2SAT 97
[2022-11-22 22:24] VITALS: O2SAT 100
[2022-11-23] MEDS: ALBUTEROL FS 2.5 MG/3 ML VIAL.NEB NEB SCH ×4 (02:21→19:49)
[2022-11-23] MEDS: IPRATROPIUM NEB FS 0.5 MG/2.5 ML AMPUL.NEB NEB SCH ×4 (02:21→19:49)
[2022-11-23] MEDS: JEVITY 1.2 CAL 1,000 ML BOTTLE GT PRN ×2 (02:46→21:44)
[2022-11-23] MEDS: BACLOFEN (10 MG) 10 MG TABLET PEG SCH ×3 (05:39→21:42)
[2022-11-23] MEDS: APIXABAN 5 MG TABLET GT SCH ×2 (05:39→18:26)
[2022-11-23 07:37] VITALS: BP 137/98; TEMP 98.9; O2SAT 100
[2022-11-23] MEDS: ASPIRIN 81 MG TAB.CHEW GT SCH (09:36)
[2022-11-23] MEDS: DOCUSATE SODIUM LIQ 100 MG/10 ML UDC GT SCH ×2 (09:36→21:41)
[2022-11-23] MEDS: ASCORBIC ACID 500 MG TABLET GT SCH ×2 (09:37→21:42)
[2022-11-23] MEDS: CHLORHEXIDINE GLUCONATE 15 ML UDC MM SCH ×2 (09:37→21:42)
[2022-11-23] MEDS: PROSTAT (PYXIS) 30 ML UDC GT SCH ×2 (09:37→17:00)
[2022-11-23] MEDS: OMEPRAZOLE 20 MG CAPSULE.DR GT SCH (09:37)
[2022-11-23] MEDS: ALPRAZOLAM 0.5 MG TABLET GT SCH ×2 (09:37→21:42)
[2022-11-23] MEDS: METOPROLOL TARTRATE 25 MG TABLET GT SCH ×2 (09:37→21:42)
[2022-11-23] MEDS: HYDROGEN PEROXIDE 480 ML BOTTLE TP SCH ×2 (09:41→19:49)
[2022-11-23 11:32] VITALS: O2SAT 100
[2022-11-23 20:04] VITALS: BP 133/72; TEMP 98.9; O2SAT 100
[2022-11-23 22:04] VITALS: O2SAT 100
[2022-11-24] MEDS: IPRATROPIUM NEB FS 0.5 MG/2.5 ML AMPUL.NEB NEB SCH ×4 (01:43→20:05)
[2022-11-24] MEDS: ALBUTEROL FS 2.5 MG/3 ML VIAL.NEB NEB SCH ×4 (01:43→20:05)
[2022-11-24] MEDS: BACLOFEN (10 MG) 10 MG TABLET PEG SCH ×3 (05:44→20:46)
[2022-11-24] MEDS: APIXABAN 5 MG TABLET GT SCH ×2 (05:44→17:45)
[2022-11-24] MEDS: OMEPRAZOLE 20 MG CAPSULE.DR GT SCH (09:00)
[2022-11-24] MEDS: DOCUSATE SODIUM LIQ 100 MG/10 ML UDC GT SCH ×2 (09:00→20:45)
[2022-11-24] MEDS: ASPIRIN 81 MG TAB.CHEW GT SCH (09:00)
[2022-11-24] MEDS: PROSTAT (PYXIS) 30 ML UDC GT SCH ×2 (09:00→17:44)
[2022-11-24] MEDS: ALPRAZOLAM 0.5 MG TABLET GT SCH ×2 (09:00→20:46)
[2022-11-24] MEDS: METOPROLOL TARTRATE 25 MG TABLET GT SCH ×2 (09:00→20:45)
[2022-11-24] MEDS: CHLORHEXIDINE GLUCONATE 15 ML UDC MM SCH ×2 (09:00→20:46)
[2022-11-24] MEDS: ASCORBIC ACID 500 MG TABLET GT SCH ×2 (09:00→20:46)
[2022-11-24] MEDS: HYDROGEN PEROXIDE 480 ML BOTTLE TP SCH ×2 (09:42→20:05)
[2022-11-24 11:34] VITALS: O2SAT 100
[2022-11-24] MEDS: JEVITY 1.2 CAL 1,000 ML BOTTLE GT PRN (17:45)
[2022-11-24 19:45] VITALS: BP 112/84; TEMP 97.7; O2SAT 100
[2022-11-24 23:33] VITALS: O2SAT 100
[2022-11-25 01:47] VITALS: BP 107/85; TEMP 98.6; O2SAT 99
[2022-11-25] MEDS: ALBUTEROL FS 2.5 MG/3 ML VIAL.NEB NEB SCH ×4 (01:56→18:54)
[2022-11-25] MEDS: IPRATROPIUM NEB FS 0.5 MG/2.5 ML AMPUL.NEB NEB SCH ×4 (01:56→18:54)
[2022-11-25] MEDS: BACLOFEN (10 MG) 10 MG TABLET PEG SCH ×3 (05:07→20:42)
[2022-11-25] MEDS: APIXABAN 5 MG TABLET GT SCH ×2 (05:44→17:39)
[2022-11-25 08:02] VITALS: BP 113/76; TEMP 98.5; O2SAT 100
[2022-11-25] MEDS: OMEPRAZOLE 20 MG CAPSULE.DR GT SCH (09:00)
[2022-11-25] MEDS: ASCORBIC ACID 500 MG TABLET GT SCH ×2 (09:00→20:42)
[2022-11-25] MEDS: METOPROLOL TARTRATE 25 MG TABLET GT SCH ×2 (09:00→20:42)
[2022-11-25] MEDS: PROSTAT (PYXIS) 30 ML UDC GT SCH ×2 (09:00→17:39)
[2022-11-25] MEDS: ASPIRIN 81 MG TAB.CHEW GT SCH (09:00)
[2022-11-25] MEDS: CHLORHEXIDINE GLUCONATE 15 ML UDC MM SCH ×2 (09:00→20:42)
[2022-11-25] MEDS: DOCUSATE SODIUM LIQ 100 MG/10 ML UDC GT SCH ×2 (09:00→20:42)
[2022-11-25] MEDS: ALPRAZOLAM 0.5 MG TABLET GT SCH ×2 (09:00→20:42)
[2022-11-25 09:10] VITALS: O2SAT 100
[2022-11-25] MEDS: HYDROGEN PEROXIDE 480 ML BOTTLE TP SCH ×2 (09:10→20:48)
[2022-11-25] MEDS: JEVITY 1.2 CAL 1,000 ML BOTTLE GT PRN (13:47)
[2022-11-25 20:04] VITALS: BP 117/70; TEMP 98.4; O2SAT 98
[2022-11-25] MEDS: ACETAMINOPHEN 650 MG/20 ML UDC- SA PATIENTS-PAIN ONLY GT PRN (22:32)
[2022-11-25 23:20] VITALS: O2SAT 100
[2022-11-26] MEDS: IPRATROPIUM NEB FS 0.5 MG/2.5 ML AMPUL.NEB NEB SCH ×4 (01:17→19:04)
[2022-11-26] MEDS: ALBUTEROL FS 2.5 MG/3 ML VIAL.NEB NEB SCH ×4 (01:17→19:04)
[2022-11-26 01:24] VITALS: BP 102/58; TEMP 97.4; O2SAT 100
[2022-11-26] MEDS: LORAZEPAM 1 MG TABLET GT PRN (01:57)
[2022-11-26] MEDS: BACLOFEN (10 MG) 10 MG TABLET PEG SCH ×3 (05:10→20:45)
[2022-11-26] MEDS: APIXABAN 5 MG TABLET GT SCH ×2 (05:41→17:57)
[2022-11-26 07:40] VITALS: BP 131/69; TEMP 97.6; O2SAT 97
[2022-11-26] MEDS: ASPIRIN 81 MG TAB.CHEW GT SCH (08:41)
[2022-11-26] MEDS: ALPRAZOLAM 0.5 MG TABLET GT SCH ×2 (08:41→20:45)
[2022-11-26] MEDS: PROSTAT (PYXIS) 30 ML UDC GT SCH ×2 (08:41→17:08)
[2022-11-26] MEDS: METOPROLOL TARTRATE 25 MG TABLET GT SCH ×2 (08:41→20:45)
[2022-11-26] MEDS: OMEPRAZOLE 20 MG CAPSULE.DR GT SCH (08:41)
[2022-11-26] MEDS: ASCORBIC ACID 500 MG TABLET GT SCH ×2 (08:41→20:45)
[2022-11-26] MEDS: DOCUSATE SODIUM LIQ 100 MG/10 ML UDC GT SCH ×2 (08:41→20:44)
[2022-11-26] MEDS: CHLORHEXIDINE GLUCONATE 15 ML UDC MM SCH ×2 (08:42→20:45)
[2022-11-26] MEDS: HYDROGEN PEROXIDE 480 ML BOTTLE TP SCH ×2 (09:22→21:00)
[2022-11-26 11:58] VITALS: O2SAT 99
[2022-11-26] MEDS: JEVITY 1.2 CAL 1,000 ML BOTTLE GT PRN (13:00)
[2022-11-26 19:55] VITALS: BP 129/71; TEMP 97.4; O2SAT 92
[2022-11-26 22:15] VITALS: O2SAT 97
[2022-11-27] MEDS: HYDROCODONE/APAP 5/325MG TABLET GT PRN (00:37)
[2022-11-27 00:48] VITALS: BP 145/90; TEMP 98.6; O2SAT 99
[2022-11-27] MEDS: IPRATROPIUM NEB FS 0.5 MG/2.5 ML AMPUL.NEB NEB SCH ×4 (01:43→19:07)
[2022-11-27] MEDS: ALBUTEROL FS 2.5 MG/3 ML VIAL.NEB NEB SCH ×4 (01:43→19:07)
[2022-11-27] MEDS: BACLOFEN (10 MG) 10 MG TABLET PEG SCH ×3 (05:36→20:37)
[2022-11-27] MEDS: APIXABAN 5 MG TABLET GT SCH ×2 (05:36→18:37)
[2022-11-27] MEDS: JEVITY 1.2 CAL 1,000 ML BOTTLE GT PRN (06:07)
[2022-11-27 08:10] VITALS: BP 123/76; TEMP 97.7; O2SAT 96
[2022-11-27] MEDS: HYDROGEN PEROXIDE 480 ML BOTTLE TP SCH ×2 (09:16→20:04)
[2022-11-27] MEDS: LORAZEPAM 1 MG TABLET GT PRN (09:30)
[2022-11-27] MEDS: DOCUSATE SODIUM LIQ 100 MG/10 ML UDC GT SCH ×2 (09:49→20:34)
[2022-11-27] MEDS: ASPIRIN 81 MG TAB.CHEW GT SCH (09:49)
[2022-11-27] MEDS: ALPRAZOLAM 0.5 MG TABLET GT SCH ×2 (09:50→20:37)
[2022-11-27] MEDS: PROSTAT (PYXIS) 30 ML UDC GT SCH ×2 (09:50→17:29)
[2022-11-27] MEDS: ASCORBIC ACID 500 MG TABLET GT SCH ×2 (09:50→20:35)
[2022-11-27] MEDS: METOPROLOL TARTRATE 25 MG TABLET GT SCH ×2 (09:50→20:35)
[2022-11-27] MEDS: CHLORHEXIDINE GLUCONATE 15 ML UDC MM SCH ×2 (09:50→20:37)
[2022-11-27] MEDS: OMEPRAZOLE 20 MG CAPSULE.DR GT SCH (09:50)
[2022-11-27 10:16] VITALS: O2SAT 96
[2022-11-27 20:36] VITALS: BP 124/86; TEMP 98.6; O2SAT 93
[2022-11-27 22:39] VITALS: O2SAT 98
[2022-11-28] MEDS: LORAZEPAM 1 MG TABLET GT PRN (00:08)
[2022-11-28] MEDS: IPRATROPIUM NEB FS 0.5 MG/2.5 ML AMPUL.NEB NEB SCH ×4 (01:49→19:54)
[2022-11-28] MEDS: ALBUTEROL FS 2.5 MG/3 ML VIAL.NEB NEB SCH ×4 (01:49→19:54)
[2022-11-28] MEDS: JEVITY 1.2 CAL 1,000 ML BOTTLE GT PRN (03:42)
[2022-11-28] MEDS: BACLOFEN (10 MG) 10 MG TABLET PEG SCH ×3 (05:35→20:35)
[2022-11-28] MEDS: APIXABAN 5 MG TABLET GT SCH ×2 (05:36→18:06)
[2022-11-28 08:00] VITALS: BP 125/67; TEMP 97.6; O2SAT 96
[2022-11-28] MEDS: HYDROGEN PEROXIDE 480 ML BOTTLE TP SCH ×2 (08:15→19:54)
[2022-11-28] MEDS: DOCUSATE SODIUM LIQ 100 MG/10 ML UDC GT SCH ×2 (09:56→20:32)
[2022-11-28] MEDS: ASPIRIN 81 MG TAB.CHEW GT SCH (09:56)
[2022-11-28] MEDS: PROSTAT (PYXIS) 30 ML UDC GT SCH ×2 (09:57→17:24)
[2022-11-28] MEDS: OMEPRAZOLE 20 MG CAPSULE.DR GT SCH (09:57)
[2022-11-28] MEDS: METOPROLOL TARTRATE 25 MG TABLET GT SCH ×2 (09:57→20:33)
[2022-11-28] MEDS: CHLORHEXIDINE GLUCONATE 15 ML UDC MM SCH ×2 (09:57→20:35)
[2022-11-28] MEDS: ASCORBIC ACID 500 MG TABLET GT SCH ×2 (09:57→20:34)
[2022-11-28] MEDS: ALPRAZOLAM 0.5 MG TABLET GT SCH ×2 (09:57→20:35)
[2022-11-28 10:04] VITALS: O2SAT 100
[2022-11-28 20:16] VITALS: BP 114/74; TEMP 98.8; O2SAT 91
[2022-11-28 23:21] VITALS: O2SAT 98
[2022-11-29] MEDS: LORAZEPAM 1 MG TABLET GT PRN ×2 (00:20→16:21)
[2022-11-29] MEDS: ALBUTEROL FS 2.5 MG/3 ML VIAL.NEB NEB SCH ×4 (01:55→19:43)
[2022-11-29] MEDS: IPRATROPIUM NEB FS 0.5 MG/2.5 ML AMPUL.NEB NEB SCH ×4 (01:55→19:43)
[2022-11-29] MEDS: HYDROCODONE/APAP 5/325MG TABLET GT PRN (03:40)
[2022-11-29] MEDS: BACLOFEN (10 MG) 10 MG TABLET PEG SCH ×3 (05:16→20:45)
[2022-11-29] MEDS: APIXABAN 5 MG TABLET GT SCH ×2 (05:16→18:07)
[2022-11-29] MEDS: JEVITY 1.2 CAL 1,000 ML BOTTLE GT PRN (05:24)
[2022-11-29 08:40] VITALS: BP 128/79; TEMP 99.2; O2SAT 98
[2022-11-29] MEDS: HYDROGEN PEROXIDE 480 ML BOTTLE TP SCH ×2 (09:13→19:20)
[2022-11-29] MEDS: ASPIRIN 81 MG TAB.CHEW GT SCH (09:26)
[2022-11-29] MEDS: DOCUSATE SODIUM LIQ 100 MG/10 ML UDC GT SCH ×2 (09:26→20:44)
[2022-11-29] MEDS: ALPRAZOLAM 0.5 MG TABLET GT SCH ×2 (09:26→20:45)
[2022-11-29] MEDS: PROSTAT (PYXIS) 30 ML UDC GT SCH ×2 (09:27→16:22)
[2022-11-29] MEDS: ASCORBIC ACID 500 MG TABLET GT SCH ×2 (09:27→20:45)
[2022-11-29] MEDS: METOPROLOL TARTRATE 25 MG TABLET GT SCH ×2 (09:27→20:45)
[2022-11-29] MEDS: OMEPRAZOLE 20 MG CAPSULE.DR GT SCH (09:27)
[2022-11-29] MEDS: CHLORHEXIDINE GLUCONATE 15 ML UDC MM SCH ×2 (09:27→20:45)
[2022-11-29] MEDS ORDERED: LORAZEPAM 1 MG TABLET PO PRN (12:30)
[2022-11-29 13:43] VITALS: O2SAT 99
[2022-11-29 13:48] VITALS: O2SAT 100
[2022-11-29 20:00] VITALS: BP 130/89; TEMP 98.9; O2SAT 96
[2022-11-29 22:56] VITALS: O2SAT 98
[2022-11-30] MEDS: IPRATROPIUM NEB FS 0.5 MG/2.5 ML AMPUL.NEB NEB SCH ×4 (02:02→19:55)
[2022-11-30] MEDS: ALBUTEROL FS 2.5 MG/3 ML VIAL.NEB NEB SCH ×4 (02:02→19:55)
[2022-11-30] MEDS: LORAZEPAM 1 MG TABLET GT PRN (03:27)
[2022-11-30] MEDS: BACLOFEN (10 MG) 10 MG TABLET PEG SCH ×3 (05:13→21:25)
[2022-11-30] MEDS: APIXABAN 5 MG TABLET GT SCH ×2 (05:13→19:09)
[2022-11-30] MEDS: JEVITY 1.2 CAL 1,000 ML BOTTLE GT PRN ×2 (05:15→23:31)
[2022-11-30 07:44] VITALS: BP 126/90; TEMP 97.4; O2SAT 94
[2022-11-30] MEDS: ASPIRIN 81 MG TAB.CHEW GT SCH (09:00)
[2022-11-30] MEDS: DOCUSATE SODIUM LIQ 100 MG/10 ML UDC GT SCH ×2 (09:00→21:24)
[2022-11-30] MEDS: ASCORBIC ACID 500 MG TABLET GT SCH ×2 (09:00→21:25)
[2022-11-30] MEDS: OMEPRAZOLE 20 MG CAPSULE.DR GT SCH (09:00)
[2022-11-30] MEDS: PROSTAT (PYXIS) 30 ML UDC GT SCH ×2 (09:00→17:18)
[2022-11-30] MEDS: METOPROLOL TARTRATE 25 MG TABLET GT SCH ×2 (09:00→21:24)
[2022-11-30] MEDS: CHLORHEXIDINE GLUCONATE 15 ML UDC MM SCH ×2 (09:00→21:25)
[2022-11-30] MEDS: ALPRAZOLAM 0.5 MG TABLET GT SCH ×2 (09:00→21:25)
[2022-11-30] MEDS: HYDROGEN PEROXIDE 480 ML BOTTLE TP SCH ×2 (09:20→19:55)
[2022-11-30 10:42] VITALS: O2SAT 99
[2022-11-30 20:00] VITALS: BP 112/68; TEMP 97.3; O2SAT 99
[2022-11-30] MEDS: VITAMINS A AND D 56.7 GM TUBE TP SCH (21:25)
[2022-11-30] MEDS: HYDROCODONE/APAP 5/325MG TABLET GT PRN (23:31)
[2022-12-01 00:29] VITALS: O2SAT 98
[2022-12-01 01:02] VITALS: BP 116/70; TEMP 97.2; O2SAT 99
[2022-12-01] MEDS: IPRATROPIUM NEB FS 0.5 MG/2.5 ML AMPUL.NEB NEB SCH ×4 (01:36→19:53)
[2022-12-01] MEDS: ALBUTEROL FS 2.5 MG/3 ML VIAL.NEB NEB SCH ×4 (01:36→19:53)
[2022-12-01] MEDS: APIXABAN 5 MG TABLET GT SCH ×2 (05:40→17:57)
[2022-12-01] MEDS: BACLOFEN (10 MG) 10 MG TABLET PEG SCH ×3 (05:40→21:23)
[2022-12-01] MEDS: JEVITY 1.2 CAL 1,000 ML BOTTLE GT PRN (06:00)
[2022-12-01 08:04] VITALS: BP 118/63; TEMP 97.6; O2SAT 99
[2022-12-01] MEDS: ALPRAZOLAM 0.5 MG TABLET GT SCH ×2 (08:40→21:23)
[2022-12-01] MEDS: METOPROLOL TARTRATE 25 MG TABLET GT SCH ×2 (08:40→21:23)
[2022-12-01] MEDS: ASCORBIC ACID 500 MG TABLET GT SCH ×2 (08:40→21:23)
[2022-12-01] MEDS: OMEPRAZOLE 20 MG CAPSULE.DR GT SCH (08:40)
[2022-12-01] MEDS: DOCUSATE SODIUM LIQ 100 MG/10 ML UDC GT SCH ×2 (08:40→21:23)
[2022-12-01] MEDS: ASPIRIN 81 MG TAB.CHEW GT SCH (08:40)
[2022-12-01] MEDS: PROSTAT (PYXIS) 30 ML UDC GT SCH ×2 (08:40→16:25)
[2022-12-01] MEDS: VITAMINS A AND D 56.7 GM TUBE TP SCH ×2 (08:41→21:24)
[2022-12-01] MEDS: CHLORHEXIDINE GLUCONATE 15 ML UDC MM SCH ×2 (08:41→21:23)
[2022-12-01] MEDS: HYDROGEN PEROXIDE 480 ML BOTTLE TP SCH ×2 (09:50→19:53)
[2022-12-01 10:05] VITALS: O2SAT 99
[2022-12-01] MEDS: LORAZEPAM 1 MG TABLET GT PRN (16:25)
[2022-12-01 19:59] VITALS: BP 117/87; TEMP 97.4; O2SAT 100
[2022-12-01 23:28] VITALS: O2SAT 99
[2022-12-02 00:03] VITALS: BP 120/79; TEMP 97.8; O2SAT 100
[2022-12-02] MEDS: ALBUTEROL FS 2.5 MG/3 ML VIAL.NEB NEB SCH ×4 (02:04→20:09)
[2022-12-02] MEDS: IPRATROPIUM NEB FS 0.5 MG/2.5 ML AMPUL.NEB NEB SCH ×4 (02:04→20:09)
[2022-12-02] MEDS: BACLOFEN (10 MG) 10 MG TABLET PEG SCH ×3 (05:55→21:33)
[2022-12-02] MEDS: APIXABAN 5 MG TABLET GT SCH ×2 (06:02→18:49)
[2022-12-02] MEDS: HYDROGEN PEROXIDE 480 ML BOTTLE TP SCH ×2 (08:26→19:37)
[2022-12-02 08:49] VITALS: BP 103/75; TEMP 98.4; O2SAT 99
[2022-12-02] MEDS: DOCUSATE SODIUM LIQ 100 MG/10 ML UDC GT SCH ×2 (09:40→21:32)
[2022-12-02] MEDS: ASPIRIN 81 MG TAB.CHEW GT SCH (09:40)
[2022-12-02] MEDS: VITAMINS A AND D 56.7 GM TUBE TP SCH ×2 (09:41→21:33)
[2022-12-02] MEDS: METOPROLOL TARTRATE 25 MG TABLET GT SCH ×2 (09:41→21:33)
[2022-12-02] MEDS: ALPRAZOLAM 0.5 MG TABLET GT SCH ×2 (09:41→21:33)
[2022-12-02] MEDS: PROSTAT (PYXIS) 30 ML UDC GT SCH ×2 (09:41→17:14)
[2022-12-02] MEDS: ASCORBIC ACID 500 MG TABLET GT SCH ×2 (09:41→21:33)
[2022-12-02] MEDS: CHLORHEXIDINE GLUCONATE 15 ML UDC MM SCH ×2 (09:41→21:33)
[2022-12-02] MEDS: OMEPRAZOLE 20 MG CAPSULE.DR GT SCH (09:41)
[2022-12-02 10:32] VITALS: O2SAT 99
[2022-12-02] MEDS: ACETAMINOPHEN 650 MG/20 ML UDC- SA PATIENTS-PAIN ONLY GT PRN (17:24)
[2022-12-02] MEDS: LORAZEPAM 1 MG TABLET GT PRN (18:49)
[2022-12-02 20:00] VITALS: BP 136/89; TEMP 97.9; O2SAT 98
[2022-12-02] MEDS: JEVITY 1.2 CAL 1,000 ML BOTTLE GT PRN ×2 (21:33)
[2022-12-03 00:02] VITALS: O2SAT 98
[2022-12-03] MEDS: ALBUTEROL FS 2.5 MG/3 ML VIAL.NEB NEB SCH ×4 (01:35→19:38)
[2022-12-03] MEDS: IPRATROPIUM NEB FS 0.5 MG/2.5 ML AMPUL.NEB NEB SCH ×4 (01:35→19:38)
[2022-12-03] MEDS: APIXABAN 5 MG TABLET GT SCH ×2 (05:32→17:36)
[2022-12-03] MEDS: BACLOFEN (10 MG) 10 MG TABLET PEG SCH ×3 (05:32→20:40)
[2022-12-03 07:29] VITALS: BP 132/84; TEMP 98.4; O2SAT 100
[2022-12-03] MEDS: HYDROGEN PEROXIDE 480 ML BOTTLE TP SCH ×2 (08:08→19:38)
[2022-12-03] MEDS: ALPRAZOLAM 0.5 MG TABLET GT SCH ×2 (09:08→20:40)
[2022-12-03] MEDS: DOCUSATE SODIUM LIQ 100 MG/10 ML UDC GT SCH ×2 (09:08→20:39)
[2022-12-03] MEDS: OMEPRAZOLE 20 MG CAPSULE.DR GT SCH (09:08)
[2022-12-03] MEDS: METOPROLOL TARTRATE 25 MG TABLET GT SCH ×2 (09:08→20:40)
[2022-12-03] MEDS: ASPIRIN 81 MG TAB.CHEW GT SCH (09:08)
[2022-12-03] MEDS: PROSTAT (PYXIS) 30 ML UDC GT SCH ×2 (09:08→17:36)
[2022-12-03] MEDS: CHLORHEXIDINE GLUCONATE 15 ML UDC MM SCH ×2 (09:08→20:40)
[2022-12-03] MEDS: ASCORBIC ACID 500 MG TABLET GT SCH ×2 (09:08→20:40)
[2022-12-03] MEDS: VITAMINS A AND D 56.7 GM TUBE TP SCH ×2 (09:08→20:40)
[2022-12-03 10:10] VITALS: O2SAT 100
[2022-12-03] MEDS: HYDROCODONE/APAP 5/325MG TABLET GT PRN (16:19)
[2022-12-03 19:25] VITALS: BP 105/61; TEMP 99.2; O2SAT 98
[2022-12-03] MEDS: JEVITY 1.2 CAL 1,000 ML BOTTLE GT PRN (23:16)
[2022-12-03 23:33] VITALS: O2SAT 100
[2022-12-04] MEDS: IPRATROPIUM NEB FS 0.5 MG/2.5 ML AMPUL.NEB NEB SCH ×4 (01:39→19:33)
[2022-12-04] MEDS: ALBUTEROL FS 2.5 MG/3 ML VIAL.NEB NEB SCH ×4 (01:39→19:33)
[2022-12-04] MEDS: HYDROCODONE/APAP 5/325MG TABLET GT PRN (02:25)
[2022-12-04] MEDS: BACLOFEN (10 MG) 10 MG TABLET PEG SCH ×3 (05:19→20:30)
[2022-12-04] MEDS: APIXABAN 5 MG TABLET GT SCH ×2 (06:35→18:28)
[2022-12-04 07:51] VITALS: BP 115/76; TEMP 97.6; O2SAT 100
[2022-12-04] MEDS: HYDROGEN PEROXIDE 480 ML BOTTLE TP SCH ×2 (08:05→19:33)
[2022-12-04] MEDS: PROSTAT (PYXIS) 30 ML UDC GT SCH ×2 (10:06→16:16)
[2022-12-04] MEDS: OMEPRAZOLE 20 MG CAPSULE.DR GT SCH (10:06)
[2022-12-04] MEDS: VITAMINS A AND D 56.7 GM TUBE TP SCH ×2 (10:06→20:31)
[2022-12-04] MEDS: ASCORBIC ACID 500 MG TABLET GT SCH ×2 (10:06→20:30)
[2022-12-04] MEDS: CHLORHEXIDINE GLUCONATE 15 ML UDC MM SCH ×2 (10:06→20:30)
[2022-12-04] MEDS: METOPROLOL TARTRATE 25 MG TABLET GT SCH ×2 (10:07→20:30)
[2022-12-04] MEDS: DOCUSATE SODIUM LIQ 100 MG/10 ML UDC GT SCH ×2 (10:08→20:30)
[2022-12-04] MEDS: ASPIRIN 81 MG TAB.CHEW GT SCH (10:08)
[2022-12-04] MEDS: ALPRAZOLAM 0.5 MG TABLET GT SCH ×2 (10:12→20:30)
[2022-12-04 11:45] VITALS: O2SAT 100
[2022-12-04 20:08] VITALS: BP 109/63; TEMP 97.9; O2SAT 100
[2022-12-04 22:15] VITALS: O2SAT 100
[2022-12-04] MEDS: JEVITY 1.2 CAL 1,000 ML BOTTLE GT PRN (22:47)
[2022-12-05] MEDS: ALBUTEROL FS 2.5 MG/3 ML VIAL.NEB NEB SCH ×4 (01:45→19:06)
[2022-12-05] MEDS: IPRATROPIUM NEB FS 0.5 MG/2.5 ML AMPUL.NEB NEB SCH ×4 (01:45→19:06)
[2022-12-05] MEDS: BACLOFEN (10 MG) 10 MG TABLET PEG SCH ×3 (05:21→20:50)
[2022-12-05] MEDS: APIXABAN 5 MG TABLET GT SCH ×2 (06:22→18:32)
[2022-12-05 08:09] VITALS: BP 116/79; TEMP 99.4; O2SAT 100
[2022-12-05] MEDS: HYDROGEN PEROXIDE 480 ML BOTTLE TP SCH ×2 (08:09→21:03)
[2022-12-05] MEDS: DOCUSATE SODIUM LIQ 100 MG/10 ML UDC GT SCH ×2 (09:04→20:49)
[2022-12-05] MEDS: ASPIRIN 81 MG TAB.CHEW GT SCH (09:04)
[2022-12-05] MEDS: METOPROLOL TARTRATE 25 MG TABLET GT SCH ×2 (09:04→20:49)
[2022-12-05] MEDS: CHLORHEXIDINE GLUCONATE 15 ML UDC MM SCH ×2 (09:05→20:50)
[2022-12-05] MEDS: ASCORBIC ACID 500 MG TABLET GT SCH ×2 (09:05→20:49)
[2022-12-05] MEDS: VITAMINS A AND D 56.7 GM TUBE TP SCH ×2 (09:05→20:50)
[2022-12-05] MEDS: OMEPRAZOLE 20 MG CAPSULE.DR GT SCH (09:05)
[2022-12-05] MEDS: ALPRAZOLAM 0.5 MG TABLET GT SCH ×2 (09:05→20:50)
[2022-12-05] MEDS: PROSTAT (PYXIS) 30 ML UDC GT SCH ×2 (09:05→16:39)
[2022-12-05 10:06] VITALS: O2SAT 100
[2022-12-05 10:20] VITALS: O2SAT 100
[2022-12-05 20:00] VITALS: BP_SYST 123; BP_SYST 128; BP_DIAS 71; TEMP 98.3; O2SAT 99
[2022-12-05] MEDS: JEVITY 1.2 CAL 1,000 ML BOTTLE GT PRN (21:59)
[2022-12-05 22:33] VITALS: O2SAT 98
[2022-12-06] MEDS: IPRATROPIUM NEB FS 0.5 MG/2.5 ML AMPUL.NEB NEB SCH ×4 (01:11→20:09)
[2022-12-06] MEDS: ALBUTEROL FS 2.5 MG/3 ML VIAL.NEB NEB SCH ×4 (01:11→20:09)
[2022-12-06] MEDS: BACLOFEN (10 MG) 10 MG TABLET PEG SCH ×3 (05:42→21:25)
[2022-12-06] MEDS: APIXABAN 5 MG TABLET GT SCH ×2 (05:43→17:31)
[2022-12-06 07:17] VITALS: BP 142/82; TEMP 98.7; O2SAT 97
[2022-12-06] MEDS: DOCUSATE SODIUM LIQ 100 MG/10 ML UDC GT SCH ×2 (08:38→21:24)
[2022-12-06] MEDS: ASPIRIN 81 MG TAB.CHEW GT SCH (08:38)
[2022-12-06] MEDS: METOPROLOL TARTRATE 25 MG TABLET GT SCH ×2 (08:39→21:25)
[2022-12-06] MEDS: ASCORBIC ACID 500 MG TABLET GT SCH ×2 (08:39→21:25)
[2022-12-06] MEDS: PROSTAT (PYXIS) 30 ML UDC GT SCH ×2 (08:39→16:38)
[2022-12-06] MEDS: OMEPRAZOLE 20 MG CAPSULE.DR GT SCH (08:39)
[2022-12-06] MEDS: ALPRAZOLAM 0.5 MG TABLET GT SCH ×2 (08:40→21:25)
[2022-12-06] MEDS: CHLORHEXIDINE GLUCONATE 15 ML UDC MM SCH ×2 (08:41→21:25)
[2022-12-06] MEDS: VITAMINS A AND D 56.7 GM TUBE TP SCH ×2 (08:41→21:25)
[2022-12-06] MEDS: HYDROGEN PEROXIDE 480 ML BOTTLE TP SCH ×2 (09:45→20:09)
[2022-12-06 10:19] VITALS: O2SAT 100
[2022-12-06] MEDS: JEVITY 1.2 CAL 1,000 ML BOTTLE GT PRN (16:41)
[2022-12-06 20:00] VITALS: BP 121/76; TEMP 97.5; O2SAT 99
[2022-12-06 22:59] VITALS: O2SAT 99
[2022-12-07] MEDS: ALBUTEROL FS 2.5 MG/3 ML VIAL.NEB NEB SCH ×4 (01:44→19:48)
[2022-12-07] MEDS: IPRATROPIUM NEB FS 0.5 MG/2.5 ML AMPUL.NEB NEB SCH ×4 (01:44→19:48)
[2022-12-07] MEDS: BACLOFEN (10 MG) 10 MG TABLET PEG SCH ×3 (05:45→21:43)
[2022-12-07] MEDS: APIXABAN 5 MG TABLET GT SCH ×2 (05:45→18:11)
[2022-12-07 07:27] VITALS: BP 125/93; TEMP 98.4; O2SAT 99
[2022-12-07] MEDS: HYDROGEN PEROXIDE 480 ML BOTTLE TP SCH ×2 (08:02→19:49)
[2022-12-07] MEDS: METOPROLOL TARTRATE 25 MG TABLET GT SCH ×2 (08:23→21:43)
[2022-12-07] MEDS: DOCUSATE SODIUM LIQ 100 MG/10 ML UDC GT SCH ×2 (08:23→21:42)
[2022-12-07] MEDS: ASPIRIN 81 MG TAB.CHEW GT SCH (08:23)
[2022-12-07] MEDS: PROSTAT (PYXIS) 30 ML UDC GT SCH ×2 (08:24→17:00)
[2022-12-07] MEDS: OMEPRAZOLE 20 MG CAPSULE.DR GT SCH (08:24)
[2022-12-07] MEDS: ASCORBIC ACID 500 MG TABLET GT SCH ×2 (08:24→21:43)
[2022-12-07] MEDS: ALPRAZOLAM 0.5 MG TABLET GT SCH ×2 (08:27→21:43)
[2022-12-07] MEDS: CHLORHEXIDINE GLUCONATE 15 ML UDC MM SCH ×2 (08:27→21:43)
[2022-12-07] MEDS: VITAMINS A AND D 56.7 GM TUBE TP SCH ×2 (08:27→21:43)
[2022-12-07 12:10] VITALS: O2SAT 99
[2022-12-07] MEDS: JEVITY 1.2 CAL 1,000 ML BOTTLE GT PRN (12:31)
[2022-12-07] MEDS: LORAZEPAM 1 MG TABLET GT PRN (18:55)
[2022-12-07 19:51] VITALS: BP 136/80; TEMP 97.7; O2SAT 94
[2022-12-07 22:40] VITALS: O2SAT 98
[2022-12-08] MEDS: ALBUTEROL FS 2.5 MG/3 ML VIAL.NEB NEB SCH ×4 (01:31→19:47)
[2022-12-08] MEDS: IPRATROPIUM NEB FS 0.5 MG/2.5 ML AMPUL.NEB NEB SCH ×4 (01:31→19:46)
[2022-12-08] MEDS: APIXABAN 5 MG TABLET GT SCH ×2 (05:46→18:07)
[2022-12-08] MEDS: BACLOFEN (10 MG) 10 MG TABLET PEG SCH ×3 (05:46→20:28)
[2022-12-08] MEDS: JEVITY 1.2 CAL 1,000 ML BOTTLE GT PRN (06:02)
[2022-12-08 07:00] VITALS: BP 111/62; TEMP 98.7; O2SAT 100
[2022-12-08] MEDS: ASPIRIN 81 MG TAB.CHEW GT SCH (08:40)
[2022-12-08] MEDS: DOCUSATE SODIUM LIQ 100 MG/10 ML UDC GT SCH ×2 (08:40→20:28)
[2022-12-08] MEDS: METOPROLOL TARTRATE 25 MG TABLET GT SCH ×2 (08:41→20:28)
[2022-12-08] MEDS: PROSTAT (PYXIS) 30 ML UDC GT SCH ×2 (08:41→16:47)
[2022-12-08] MEDS: OMEPRAZOLE 20 MG CAPSULE.DR GT SCH (08:41)
[2022-12-08] MEDS: VITAMINS A AND D 56.7 GM TUBE TP SCH ×2 (08:41→20:28)
[2022-12-08] MEDS: ASCORBIC ACID 500 MG TABLET GT SCH ×2 (08:41→20:28)
[2022-12-08] MEDS: CHLORHEXIDINE GLUCONATE 15 ML UDC MM SCH ×2 (08:41→20:28)
[2022-12-08] MEDS: ALPRAZOLAM 0.5 MG TABLET GT SCH ×2 (08:41→20:28)
[2022-12-08] MEDS: HYDROGEN PEROXIDE 480 ML BOTTLE TP SCH ×2 (09:22→19:47)
[2022-12-08 11:19] VITALS: O2SAT 100
[2022-12-08 19:26] VITALS: BP 115/76; TEMP 98.1; O2SAT 100
[2022-12-08 22:48] VITALS: O2SAT 100
[2022-12-09] MEDS: JEVITY 1.2 CAL 1,000 ML BOTTLE GT PRN ×2 (00:33→21:21)
[2022-12-09 01:13] VITALS: BP 136/79; TEMP 98.3; O2SAT 99
[2022-12-09] MEDS: ALBUTEROL FS 2.5 MG/3 ML VIAL.NEB NEB SCH ×4 (01:27→19:02)
[2022-12-09] MEDS: IPRATROPIUM NEB FS 0.5 MG/2.5 ML AMPUL.NEB NEB SCH ×4 (01:27→19:02)
[2022-12-09] MEDS: HYDROCODONE/APAP 5/325MG TABLET GT PRN (02:27)
[2022-12-09] MEDS: BACLOFEN (10 MG) 10 MG TABLET PEG SCH ×3 (05:08→20:17)
[2022-12-09] MEDS: APIXABAN 5 MG TABLET GT SCH ×2 (06:22→18:02)
[2022-12-09 08:24] VITALS: BP 100/59; TEMP 98.2; O2SAT 100
[2022-12-09] MEDS: DOCUSATE SODIUM LIQ 100 MG/10 ML UDC GT SCH ×2 (09:37→20:16)
[2022-12-09] MEDS: ASPIRIN 81 MG TAB.CHEW GT SCH (09:37)
[2022-12-09] MEDS: METOPROLOL TARTRATE 25 MG TABLET GT SCH ×2 (09:37→20:16)
[2022-12-09] MEDS: ALPRAZOLAM 0.5 MG TABLET GT SCH ×2 (09:37→20:56)
[2022-12-09] MEDS: PROSTAT (PYXIS) 30 ML UDC GT SCH ×2 (09:37→16:51)
[2022-12-09] MEDS: ASCORBIC ACID 500 MG TABLET GT SCH ×2 (09:37→20:17)
[2022-12-09] MEDS: CHLORHEXIDINE GLUCONATE 15 ML UDC MM SCH ×2 (09:37→20:17)
[2022-12-09] MEDS: VITAMINS A AND D 56.7 GM TUBE TP SCH ×2 (09:37→20:17)
[2022-12-09] MEDS: OMEPRAZOLE 20 MG CAPSULE.DR GT SCH (09:37)
[2022-12-09] MEDS: HYDROGEN PEROXIDE 480 ML BOTTLE TP SCH ×2 (09:38→20:11)
[2022-12-09 12:50] VITALS: O2SAT 100
[2022-12-09 19:30] VITALS: BP 98/64; TEMP 97.5; O2SAT 100
[2022-12-09 22:44] VITALS: O2SAT 100
[2022-12-10 00:27] VITALS: BP 98/65; TEMP 99.4; O2SAT 100
[2022-12-10] MEDS: ALBUTEROL FS 2.5 MG/3 ML VIAL.NEB NEB SCH ×4 (00:34→18:55)
[2022-12-10] MEDS: IPRATROPIUM NEB FS 0.5 MG/2.5 ML AMPUL.NEB NEB SCH ×4 (00:34→18:55)
[2022-12-10] MEDS: ACETAMINOPHEN 650 MG/20 ML UDC- SA PATIENTS-PAIN ONLY GT PRN (01:54)
[2022-12-10] MEDS: HYDROCODONE/APAP 5/325MG TABLET GT PRN ×2 (03:52→23:20)
[2022-12-10] MEDS: BACLOFEN (10 MG) 10 MG TABLET PEG SCH ×3 (05:08→20:12)
[2022-12-10] MEDS: APIXABAN 5 MG TABLET GT SCH ×2 (05:30→17:43)
[2022-12-10 08:29] VITALS: BP 109/73; TEMP 97.5; O2SAT 100
[2022-12-10] MEDS: DOCUSATE SODIUM LIQ 100 MG/10 ML UDC GT SCH ×2 (08:47→20:11)
[2022-12-10] MEDS: ASPIRIN 81 MG TAB.CHEW GT SCH (08:47)
[2022-12-10] MEDS: OMEPRAZOLE 20 MG CAPSULE.DR GT SCH (08:49)
[2022-12-10] MEDS: ASCORBIC ACID 500 MG TABLET GT SCH ×2 (08:49→20:12)
[2022-12-10] MEDS: PROSTAT (PYXIS) 30 ML UDC GT SCH ×2 (08:49→17:17)
[2022-12-10] MEDS: METOPROLOL TARTRATE 25 MG TABLET GT SCH ×2 (08:49→20:11)
[2022-12-10] MEDS: ALPRAZOLAM 0.5 MG TABLET GT SCH ×2 (08:52→21:07)
[2022-12-10] MEDS: CHLORHEXIDINE GLUCONATE 15 ML UDC MM SCH ×2 (08:53→20:12)
[2022-12-10] MEDS: VITAMINS A AND D 56.7 GM TUBE TP SCH ×2 (08:53→20:12)
[2022-12-10] MEDS: HYDROGEN PEROXIDE 480 ML BOTTLE TP SCH ×2 (09:52→20:02)
[2022-12-10 11:54] VITALS: O2SAT 100
[2022-12-10 20:00] VITALS: BP_SYST 147; BP_SYST 98; BP_DIAS 55; BP_DIAS 91; TEMP 97.5; TEMP 97.7; O2SAT 100
[2022-12-10] MEDS: NYSTATIN TOP POWDER 15 GM BOTTLE TP SCH (20:12)
[2022-12-10 22:44] VITALS: O2SAT 98
[2022-12-11] VITALS: BP 99/58; TEMP 97.8; O2SAT 100
[2022-12-11] MEDS: JEVITY 1.2 CAL 1,000 ML BOTTLE GT PRN ×2 (00:26→22:38)
[2022-12-11] MEDS: IPRATROPIUM NEB FS 0.5 MG/2.5 ML AMPUL.NEB NEB SCH ×4 (01:35→19:05)
[2022-12-11] MEDS: ALBUTEROL FS 2.5 MG/3 ML VIAL.NEB NEB SCH ×4 (01:35→19:05)
[2022-12-11] MEDS: BACLOFEN (10 MG) 10 MG TABLET PEG SCH ×3 (05:22→20:44)
[2022-12-11] MEDS: APIXABAN 5 MG TABLET GT SCH ×2 (05:39→18:53)
[2022-12-11 08:00] VITALS: BP 117/78; TEMP 99; O2SAT 99
[2022-12-11] MEDS: ASPIRIN 81 MG TAB.CHEW GT SCH (09:14)
[2022-12-11] MEDS: DOCUSATE SODIUM LIQ 100 MG/10 ML UDC GT SCH ×2 (09:14→20:43)
[2022-12-11] MEDS: ALPRAZOLAM 0.5 MG TABLET GT SCH ×2 (09:15→20:44)
[2022-12-11] MEDS: NYSTATIN TOP POWDER 15 GM BOTTLE TP SCH ×2 (09:15→20:44)
[2022-12-11] MEDS: PROSTAT (PYXIS) 30 ML UDC GT SCH ×2 (09:15→16:47)
[2022-12-11] MEDS: METOPROLOL TARTRATE 25 MG TABLET GT SCH ×2 (09:15→20:44)
[2022-12-11] MEDS: CHLORHEXIDINE GLUCONATE 15 ML UDC MM SCH ×2 (09:15→20:44)
[2022-12-11] MEDS: VITAMINS A AND D 56.7 GM TUBE TP SCH ×2 (09:15→20:44)
[2022-12-11] MEDS: OMEPRAZOLE 20 MG CAPSULE.DR GT SCH (09:15)
[2022-12-11] MEDS: ASCORBIC ACID 500 MG TABLET GT SCH ×2 (09:15→20:44)
[2022-12-11] MEDS: HYDROGEN PEROXIDE 480 ML BOTTLE TP SCH ×2 (09:41→20:02)
[2022-12-11 11:55] VITALS: O2SAT 100
[2022-12-11] MEDS: LORAZEPAM 1 MG TABLET GT PRN (15:30)
[2022-12-11 20:00] VITALS: BP 108/66; TEMP 98.7; O2SAT 99
[2022-12-11 23:01] VITALS: O2SAT 98
[2022-12-12] MEDS: IPRATROPIUM NEB FS 0.5 MG/2.5 ML AMPUL.NEB NEB SCH ×4 (01:01→20:13)
[2022-12-12] MEDS: ALBUTEROL FS 2.5 MG/3 ML VIAL.NEB NEB SCH ×4 (01:01→20:13)
[2022-12-12] MEDS: HYDROCODONE/APAP 5/325MG TABLET GT PRN (03:45)
[2022-12-12] MEDS: BACLOFEN (10 MG) 10 MG TABLET PEG SCH ×3 (05:03→21:54)
[2022-12-12] MEDS: APIXABAN 5 MG TABLET GT SCH ×2 (05:43→18:37)
[2022-12-12] MEDS: HYDROGEN PEROXIDE 480 ML BOTTLE TP SCH ×2 (08:08→20:13)
[2022-12-12 08:43] VITALS: BP 82/52; TEMP 99.7; O2SAT 99
[2022-12-12] MEDS: NYSTATIN TOP POWDER 15 GM BOTTLE TP SCH ×2 (09:00→21:55)
[2022-12-12] MEDS: VITAMINS A AND D 56.7 GM TUBE TP SCH ×2 (09:00→21:55)
[2022-12-12] MEDS: DOCUSATE SODIUM LIQ 100 MG/10 ML UDC GT SCH ×2 (09:00→21:49)
[2022-12-12] MEDS: PROSTAT (PYXIS) 30 ML UDC GT SCH ×2 (09:00→17:26)
[2022-12-12] MEDS: CHLORHEXIDINE GLUCONATE 15 ML UDC MM SCH ×2 (09:00→21:54)
[2022-12-12] MEDS: METOPROLOL TARTRATE 25 MG TABLET GT SCH ×2 (09:00→21:50)
[2022-12-12] MEDS: ASCORBIC ACID 500 MG TABLET GT SCH ×2 (09:00→21:50)
[2022-12-12] MEDS: ASPIRIN 81 MG TAB.CHEW GT SCH (10:33)
[2022-12-12] MEDS: OMEPRAZOLE 20 MG CAPSULE.DR GT SCH (10:45)
[2022-12-12] MEDS: ALPRAZOLAM 0.5 MG TABLET GT SCH ×2 (10:46→21:54)
[2022-12-12 11:30] VITALS: O2SAT 100
[2022-12-12 19:50] VITALS: BP 147/86; TEMP 97.9; O2SAT 99
[2022-12-12] MEDS: JEVITY 1.2 CAL 1,000 ML BOTTLE GT PRN (20:43)
[2022-12-12 23:00] VITALS: O2SAT 100
[2022-12-13] MEDS: ALBUTEROL FS 2.5 MG/3 ML VIAL.NEB NEB SCH ×4 (01:28→20:12)
[2022-12-13] MEDS: IPRATROPIUM NEB FS 0.5 MG/2.5 ML AMPUL.NEB NEB SCH ×4 (01:28→20:12)
[2022-12-13] MEDS: BACLOFEN (10 MG) 10 MG TABLET PEG SCH ×3 (04:46→21:00)
[2022-12-13] MEDS: APIXABAN 5 MG TABLET GT SCH ×2 (06:31→17:31)
[2022-12-13 08:00] VITALS: BP 104/65; TEMP 98.9; O2SAT 100
[2022-12-13] MEDS: HYDROGEN PEROXIDE 480 ML BOTTLE TP SCH ×2 (08:31→20:12)
[2022-12-13] MEDS: ASPIRIN 81 MG TAB.CHEW GT SCH (08:57)
[2022-12-13] MEDS: DOCUSATE SODIUM LIQ 100 MG/10 ML UDC GT SCH ×2 (08:57→20:59)
[2022-12-13] MEDS: METOPROLOL TARTRATE 25 MG TABLET GT SCH ×2 (08:58→20:59)
[2022-12-13] MEDS: OMEPRAZOLE 20 MG CAPSULE.DR GT SCH (08:58)
[2022-12-13] MEDS: PROSTAT (PYXIS) 30 ML UDC GT SCH ×2 (08:59→16:28)
[2022-12-13] MEDS: ASCORBIC ACID 500 MG TABLET GT SCH ×2 (08:59→20:59)
[2022-12-13] MEDS: ALPRAZOLAM 0.5 MG TABLET GT SCH ×2 (08:59→21:00)
[2022-12-13] MEDS: NYSTATIN TOP POWDER 15 GM BOTTLE TP SCH ×2 (09:00→21:00)
[2022-12-13] MEDS: VITAMINS A AND D 56.7 GM TUBE TP SCH ×2 (09:00→21:00)
[2022-12-13] MEDS: CHLORHEXIDINE GLUCONATE 15 ML UDC MM SCH ×2 (09:00→21:00)
[2022-12-13 10:24] VITALS: O2SAT 100
[2022-12-13] MEDS: JEVITY 1.2 CAL 1,000 ML BOTTLE GT PRN (16:31)
[2022-12-13 19:26] VITALS: BP 140/76; TEMP 99.5; O2SAT 98
[2022-12-13 23:45] VITALS: O2SAT 100
[2022-12-14] MEDS: IPRATROPIUM NEB FS 0.5 MG/2.5 ML AMPUL.NEB NEB SCH ×4 (01:42→19:55)
[2022-12-14] MEDS: ALBUTEROL FS 2.5 MG/3 ML VIAL.NEB NEB SCH ×4 (01:42→19:55)
[2022-12-14] MEDS: APIXABAN 5 MG TABLET GT SCH ×2 (05:20→18:06)
[2022-12-14] MEDS: BACLOFEN (10 MG) 10 MG TABLET PEG SCH ×3 (05:20→21:21)
[2022-12-14 07:14] VITALS: BP 132/87; TEMP 97.8; O2SAT 98
[2022-12-14] MEDS: NYSTATIN TOP POWDER 15 GM BOTTLE TP SCH ×2 (09:00→21:21)
[2022-12-14] MEDS: ASCORBIC ACID 500 MG TABLET GT SCH ×2 (09:00→21:21)
[2022-12-14] MEDS: VITAMINS A AND D 56.7 GM TUBE TP SCH ×2 (09:00→21:21)
[2022-12-14] MEDS: METOPROLOL TARTRATE 25 MG TABLET GT SCH ×2 (09:00→21:21)
[2022-12-14] MEDS: PROSTAT (PYXIS) 30 ML UDC GT SCH ×2 (09:00→17:00)
[2022-12-14] MEDS: ALPRAZOLAM 0.5 MG TABLET GT SCH ×2 (09:00→21:21)
[2022-12-14] MEDS: DOCUSATE SODIUM LIQ 100 MG/10 ML UDC GT SCH ×2 (09:00→21:20)
[2022-12-14] MEDS: CHLORHEXIDINE GLUCONATE 15 ML UDC MM SCH ×2 (09:00→21:21)
[2022-12-14] MEDS: OMEPRAZOLE 20 MG CAPSULE.DR GT SCH (09:00)
[2022-12-14] MEDS: ASPIRIN 81 MG TAB.CHEW GT SCH (09:00)
[2022-12-14] MEDS: HYDROGEN PEROXIDE 480 ML BOTTLE TP SCH ×2 (09:19→20:23)
[2022-12-14 11:24] VITALS: O2SAT 100
[2022-12-14] MEDS: JEVITY 1.2 CAL 1,000 ML BOTTLE GT PRN (13:30)
[2022-12-14 20:00] VITALS: BP 124/61; TEMP 97.5; O2SAT 100
[2022-12-15] MEDS: ALBUTEROL FS 2.5 MG/3 ML VIAL.NEB NEB SCH ×4 (01:20→19:46)
[2022-12-15] MEDS: IPRATROPIUM NEB FS 0.5 MG/2.5 ML AMPUL.NEB NEB SCH ×4 (01:20→19:46)
[2022-12-15 03:44] VITALS: O2SAT 97
[2022-12-15] MEDS: BACLOFEN (10 MG) 10 MG TABLET PEG SCH ×3 (05:16→21:11)
[2022-12-15] MEDS: APIXABAN 5 MG TABLET GT SCH ×2 (06:08→18:19)
[2022-12-15 08:37] VITALS: BP 116/77; TEMP 99.3; O2SAT 99
[2022-12-15] MEDS: ASPIRIN 81 MG TAB.CHEW GT SCH (08:41)
[2022-12-15] MEDS: DOCUSATE SODIUM LIQ 100 MG/10 ML UDC GT SCH ×2 (08:41→21:10)
[2022-12-15] MEDS: METOPROLOL TARTRATE 25 MG TABLET GT SCH ×2 (08:43→21:11)
[2022-12-15] MEDS: OMEPRAZOLE 20 MG CAPSULE.DR GT SCH (08:48)
[2022-12-15] MEDS: PROSTAT (PYXIS) 30 ML UDC GT SCH ×2 (08:48→17:00)
[2022-12-15] MEDS: ASCORBIC ACID 500 MG TABLET GT SCH ×2 (08:48→21:11)
[2022-12-15] MEDS: ALPRAZOLAM 0.5 MG TABLET GT SCH ×2 (08:50→21:11)
[2022-12-15] MEDS: CHLORHEXIDINE GLUCONATE 15 ML UDC MM SCH ×2 (08:50→21:11)
[2022-12-15] MEDS: NYSTATIN TOP POWDER 15 GM BOTTLE TP SCH ×2 (08:51→21:11)
[2022-12-15] MEDS: VITAMINS A AND D 56.7 GM TUBE TP SCH ×2 (08:51→21:11)
[2022-12-15] MEDS: HYDROGEN PEROXIDE 480 ML BOTTLE TP SCH ×2 (09:16→19:46)
[2022-12-15 10:14] VITALS: O2SAT 99
[2022-12-15] MEDS: JEVITY 1.2 CAL 1,000 ML BOTTLE GT PRN (12:32)
[2022-12-15 18:58] VITALS: BP 103/59; TEMP 97.4; O2SAT 100
[2022-12-15 22:08] VITALS: O2SAT 100
[2022-12-15 23:43] VITALS: BP 103/59; TEMP 97.4; O2SAT 100
[2022-12-16] MEDS: ALBUTEROL FS 2.5 MG/3 ML VIAL.NEB NEB SCH ×4 (01:22→19:02)
[2022-12-16] MEDS: IPRATROPIUM NEB FS 0.5 MG/2.5 ML AMPUL.NEB NEB SCH ×4 (01:22→19:02)
[2022-12-16] MEDS: BACLOFEN (10 MG) 10 MG TABLET PEG SCH ×3 (05:17→20:54)
[2022-12-16] MEDS: APIXABAN 5 MG TABLET GT SCH ×2 (06:34→17:36)
[2022-12-16] MEDS: HYDROGEN PEROXIDE 480 ML BOTTLE TP SCH ×2 (08:11→20:24)
[2022-12-16] MEDS: ALPRAZOLAM 0.5 MG TABLET GT SCH ×2 (09:00→20:54)
[2022-12-16] MEDS: ASCORBIC ACID 500 MG TABLET GT SCH ×2 (09:00→20:54)
[2022-12-16] MEDS: DOCUSATE SODIUM LIQ 100 MG/10 ML UDC GT SCH ×2 (09:17→20:54)
[2022-12-16] MEDS: ASPIRIN 81 MG TAB.CHEW GT SCH (09:17)
[2022-12-16] MEDS: METOPROLOL TARTRATE 25 MG TABLET GT SCH ×2 (09:18→20:54)
[2022-12-16] MEDS: PROSTAT (PYXIS) 30 ML UDC GT SCH ×2 (09:19→17:35)
[2022-12-16] MEDS: OMEPRAZOLE 20 MG CAPSULE.DR GT SCH (09:19)
[2022-12-16] MEDS: CHLORHEXIDINE GLUCONATE 15 ML UDC MM SCH ×2 (09:19→20:54)
[2022-12-16] MEDS: NYSTATIN TOP POWDER 15 GM BOTTLE TP SCH ×2 (09:20→20:54)
[2022-12-16] MEDS: VITAMINS A AND D 56.7 GM TUBE TP SCH ×2 (09:20→20:54)
[2022-12-16] MEDS ORDERED: ALPRAZOLAM 0.5 MG TABLET GT ONE (09:30)
[2022-12-16 10:12] VITALS: O2SAT 98
[2022-12-16] MEDS: JEVITY 1.2 CAL 1,000 ML BOTTLE GT PRN (11:23)
[2022-12-16 12:56] VITALS: BP 147/51; TEMP 98.9; O2SAT 99
[2022-12-16] MEDS: HYDROCODONE/APAP 5/325MG TABLET GT PRN (15:57)
[2022-12-16 19:03] VITALS: BP 111/69; TEMP 98.9; O2SAT 100
[2022-12-16 22:44] VITALS: O2SAT 100
[2022-12-17 00:29] VITALS: BP 103/67; TEMP 98.4; O2SAT 100
[2022-12-17] MEDS: ALBUTEROL FS 2.5 MG/3 ML VIAL.NEB NEB SCH ×4 (00:52→19:47)
[2022-12-17] MEDS: IPRATROPIUM NEB FS 0.5 MG/2.5 ML AMPUL.NEB NEB SCH ×4 (00:52→19:47)
[2022-12-17] MEDS: APIXABAN 5 MG TABLET GT SCH ×2 (05:32→17:33)
[2022-12-17] MEDS: BACLOFEN (10 MG) 10 MG TABLET PEG SCH ×3 (05:32→21:34)
[2022-12-17 07:36] VITALS: BP 108/67; TEMP 99; O2SAT 99
[2022-12-17] MEDS: METOPROLOL TARTRATE 25 MG TABLET GT SCH ×2 (08:06→21:34)
[2022-12-17] MEDS: PROSTAT (PYXIS) 30 ML UDC GT SCH ×2 (08:06→16:42)
[2022-12-17] MEDS: DOCUSATE SODIUM LIQ 100 MG/10 ML UDC GT SCH ×2 (08:06→21:33)
[2022-12-17] MEDS: ASPIRIN 81 MG TAB.CHEW GT SCH (08:06)
[2022-12-17] MEDS: OMEPRAZOLE 20 MG CAPSULE.DR GT SCH (08:06)
[2022-12-17] MEDS: ASCORBIC ACID 500 MG TABLET GT SCH ×2 (08:06→21:34)
[2022-12-17] MEDS: CHLORHEXIDINE GLUCONATE 15 ML UDC MM SCH ×2 (08:07→21:34)
[2022-12-17] MEDS: NYSTATIN TOP POWDER 15 GM BOTTLE TP SCH ×2 (08:07→21:34)
[2022-12-17] MEDS: VITAMINS A AND D 56.7 GM TUBE TP SCH ×2 (08:07→21:34)
[2022-12-17] MEDS: HYDROGEN PEROXIDE 480 ML BOTTLE TP SCH ×2 (08:12→19:47)
[2022-12-17] MEDS: ALPRAZOLAM 0.5 MG TABLET GT SCH ×2 (09:20→21:34)
[2022-12-17] MEDS: JEVITY 1.2 CAL 1,000 ML BOTTLE GT PRN (09:54)
[2022-12-17 10:06] VITALS: O2SAT 100
[2022-12-17 18:52] VITALS: BP 113/73; TEMP 99.8; O2SAT 100
[2022-12-17 22:51] VITALS: O2SAT 97
[2022-12-18] VITALS: BP 112/65; TEMP 98.7; O2SAT 98
[2022-12-18] MEDS: IPRATROPIUM NEB FS 0.5 MG/2.5 ML AMPUL.NEB NEB SCH ×4 (01:14→19:55)
[2022-12-18] MEDS: ALBUTEROL FS 2.5 MG/3 ML VIAL.NEB NEB SCH ×4 (01:14→19:55)
[2022-12-18] MEDS: APIXABAN 5 MG TABLET GT SCH ×2 (05:52→17:38)
[2022-12-18] MEDS: BACLOFEN (10 MG) 10 MG TABLET PEG SCH ×3 (05:52→20:35)
[2022-12-18] MEDS: JEVITY 1.2 CAL 1,000 ML BOTTLE GT PRN (05:55)
[2022-12-18 07:46] VITALS: BP 104/65; TEMP 98.9; O2SAT 100
[2022-12-18] MEDS: HYDROGEN PEROXIDE 480 ML BOTTLE TP SCH ×2 (08:12→19:55)
[2022-12-18] MEDS: DOCUSATE SODIUM LIQ 100 MG/10 ML UDC GT SCH ×2 (09:03→20:34)
[2022-12-18] MEDS: ASPIRIN 81 MG TAB.CHEW GT SCH (09:03)
[2022-12-18] MEDS: ALPRAZOLAM 0.5 MG TABLET GT SCH ×2 (09:04→20:35)
[2022-12-18] MEDS: VITAMINS A AND D 56.7 GM TUBE TP SCH ×2 (09:04→20:35)
[2022-12-18] MEDS: CHLORHEXIDINE GLUCONATE 15 ML UDC MM SCH ×2 (09:04→20:35)
[2022-12-18] MEDS: PROSTAT (PYXIS) 30 ML UDC GT SCH ×2 (09:04→17:13)
[2022-12-18] MEDS: ASCORBIC ACID 500 MG TABLET GT SCH ×2 (09:04→20:34)
[2022-12-18] MEDS: METOPROLOL TARTRATE 25 MG TABLET GT SCH ×2 (09:04→20:34)
[2022-12-18] MEDS: OMEPRAZOLE 20 MG CAPSULE.DR GT SCH (09:04)
[2022-12-18] MEDS: NYSTATIN TOP POWDER 15 GM BOTTLE TP SCH ×2 (09:04→20:35)
[2022-12-18 10:09] VITALS: O2SAT 100
[2022-12-18 19:00] VITALS: BP 119/76; TEMP 99.5; O2SAT 99
[2022-12-18 22:38] VITALS: O2SAT 100
[2022-12-19] MEDS: LORAZEPAM 1 MG TABLET GT PRN (00:16)
[2022-12-19 00:20] VITALS: BP 156/94; TEMP 99.8; O2SAT 99
[2022-12-19] MEDS: IPRATROPIUM NEB FS 0.5 MG/2.5 ML AMPUL.NEB NEB SCH ×4 (01:53→20:02)
[2022-12-19] MEDS: ALBUTEROL FS 2.5 MG/3 ML VIAL.NEB NEB SCH ×4 (01:53→20:02)
[2022-12-19] MEDS: HYDROCODONE/APAP 5/325MG TABLET GT PRN (02:26)
[2022-12-19] MEDS: BACLOFEN (10 MG) 10 MG TABLET PEG SCH ×3 (05:05→21:00)
[2022-12-19] MEDS: APIXABAN 5 MG TABLET GT SCH ×2 (05:06→18:10)
[2022-12-19] MEDS: HYDROGEN PEROXIDE 480 ML BOTTLE TP SCH ×2 (08:13→20:02)
[2022-12-19 08:45] VITALS: BP 137/86; TEMP 98.8; O2SAT 100
[2022-12-19] MEDS: DOCUSATE SODIUM LIQ 100 MG/10 ML UDC GT SCH ×2 (09:05→20:56)
[2022-12-19] MEDS: ASPIRIN 81 MG TAB.CHEW GT SCH (09:05)
[2022-12-19] MEDS: OMEPRAZOLE 20 MG CAPSULE.DR GT SCH (09:06)
[2022-12-19] MEDS: ASCORBIC ACID 500 MG TABLET GT SCH ×2 (09:06→20:59)
[2022-12-19] MEDS: ALPRAZOLAM 0.5 MG TABLET GT SCH ×2 (09:06→21:00)
[2022-12-19] MEDS: CHLORHEXIDINE GLUCONATE 15 ML UDC MM SCH ×2 (09:06→21:00)
[2022-12-19] MEDS: PROSTAT (PYXIS) 30 ML UDC GT SCH ×2 (09:06→17:44)
[2022-12-19] MEDS: METOPROLOL TARTRATE 25 MG TABLET GT SCH ×2 (09:06→20:57)
[2022-12-19] MEDS: VITAMINS A AND D 56.7 GM TUBE TP SCH ×2 (09:07→21:00)
[2022-12-19] MEDS: NYSTATIN TOP POWDER 15 GM BOTTLE TP SCH ×2 (09:07→21:00)
[2022-12-19 10:29] VITALS: O2SAT 100
[2022-12-19 11:40] VITALS: O2SAT 100
[2022-12-19 12:25] VITALS: BP 120/74; TEMP 98.8; O2SAT 100
[2022-12-19 20:00] VITALS: BP 99/70; TEMP 97.5; O2SAT 99
[2022-12-20] MEDS: ALBUTEROL FS 2.5 MG/3 ML VIAL.NEB NEB SCH ×4 (01:10→20:09)
[2022-12-20] MEDS: IPRATROPIUM NEB FS 0.5 MG/2.5 ML AMPUL.NEB NEB SCH ×4 (01:10→20:09)
[2022-12-20] MEDS: BACLOFEN (10 MG) 10 MG TABLET PEG SCH ×3 (05:38→20:36)
[2022-12-20] MEDS: APIXABAN 5 MG TABLET GT SCH ×2 (05:40→18:24)
[2022-12-20] MEDS: JEVITY 1.2 CAL 1,000 ML BOTTLE GT PRN (05:56)
[2022-12-20 06:15] VITALS: O2SAT 98
[2022-12-20 08:53] VITALS: BP 150/96; TEMP 99.3; O2SAT 99
[2022-12-20] MEDS: HYDROGEN PEROXIDE 480 ML BOTTLE TP SCH ×2 (09:18→20:09)
[2022-12-20] MEDS: ASPIRIN 81 MG TAB.CHEW GT SCH (09:40)
[2022-12-20] MEDS: DOCUSATE SODIUM LIQ 100 MG/10 ML UDC GT SCH ×2 (09:40→20:34)
[2022-12-20] MEDS: NYSTATIN TOP POWDER 15 GM BOTTLE TP SCH ×2 (09:42→20:36)
[2022-12-20] MEDS: CHLORHEXIDINE GLUCONATE 15 ML UDC MM SCH ×2 (09:42→20:36)
[2022-12-20] MEDS: VITAMINS A AND D 56.7 GM TUBE TP SCH ×2 (09:42→20:36)
[2022-12-20] MEDS: ASCORBIC ACID 500 MG TABLET GT SCH ×2 (09:42→20:35)
[2022-12-20] MEDS: PROSTAT (PYXIS) 30 ML UDC GT SCH ×2 (09:42→17:03)
[2022-12-20] MEDS: OMEPRAZOLE 20 MG CAPSULE.DR GT SCH (09:42)
[2022-12-20] MEDS: ALPRAZOLAM 0.5 MG TABLET GT SCH ×2 (09:42→20:36)
[2022-12-20] MEDS: METOPROLOL TARTRATE 25 MG TABLET GT SCH ×2 (09:42→20:35)
[2022-12-20 10:03] VITALS: O2SAT 99
[2022-12-20] MEDS: LORAZEPAM 1 MG TABLET GT PRN (15:37)
[2022-12-20] MEDS: HYDROCODONE/APAP 5/325MG TABLET GT PRN (17:09)
[2022-12-20 20:00] VITALS: BP 111/70; TEMP 98.3; O2SAT 99
[2022-12-20 23:50] VITALS: O2SAT 98
[2022-12-21] MEDS: ALBUTEROL FS 2.5 MG/3 ML VIAL.NEB NEB SCH ×4 (02:05→19:42)
[2022-12-21] MEDS: IPRATROPIUM NEB FS 0.5 MG/2.5 ML AMPUL.NEB NEB SCH ×4 (02:05→19:42)
[2022-12-21] MEDS: JEVITY 1.2 CAL 1,000 ML BOTTLE GT PRN (03:49)
[2022-12-21] MEDS: BACLOFEN (10 MG) 10 MG TABLET PEG SCH ×3 (05:27→21:29)
[2022-12-21] MEDS: APIXABAN 5 MG TABLET GT SCH ×2 (05:27→18:57)
[2022-12-21 07:37] VITALS: BP 104/58; TEMP 99.2; O2SAT 100
[2022-12-21] MEDS: ASPIRIN 81 MG TAB.CHEW GT SCH (09:00)
[2022-12-21] MEDS: CHLORHEXIDINE GLUCONATE 15 ML UDC MM SCH ×2 (09:00→21:29)
[2022-12-21] MEDS: VITAMINS A AND D 56.7 GM TUBE TP SCH ×2 (09:00→21:29)
[2022-12-21] MEDS: DOCUSATE SODIUM LIQ 100 MG/10 ML UDC GT SCH ×2 (09:00→21:27)
[2022-12-21] MEDS: HYDROGEN PEROXIDE 480 ML BOTTLE TP SCH ×2 (09:00→19:42)
[2022-12-21] MEDS: PROSTAT (PYXIS) 30 ML UDC GT SCH ×2 (09:00→17:19)
[2022-12-21] MEDS: ASCORBIC ACID 500 MG TABLET GT SCH ×2 (09:00→21:28)
[2022-12-21] MEDS: OMEPRAZOLE 20 MG CAPSULE.DR GT SCH (09:00)
[2022-12-21] MEDS: ALPRAZOLAM 0.5 MG TABLET GT SCH ×2 (09:00→21:28)
[2022-12-21] MEDS: METOPROLOL TARTRATE 25 MG TABLET GT SCH ×2 (09:00→21:27)
[2022-12-21] MEDS: NYSTATIN TOP POWDER 15 GM BOTTLE TP SCH ×2 (09:00→21:29)
[2022-12-21 10:11] VITALS: O2SAT 100
[2022-12-21 20:00] VITALS: BP 99/63; TEMP 97.5; O2SAT 99
[2022-12-21 23:11] VITALS: O2SAT 100
[2022-12-22] MEDS: IPRATROPIUM NEB FS 0.5 MG/2.5 ML AMPUL.NEB NEB SCH ×4 (00:59→19:49)
[2022-12-22] MEDS: ALBUTEROL FS 2.5 MG/3 ML VIAL.NEB NEB SCH ×4 (00:59→19:49)
[2022-12-22] MEDS: JEVITY 1.2 CAL 1,000 ML BOTTLE GT PRN ×2 (03:00→23:33)
[2022-12-22] MEDS: BACLOFEN (10 MG) 10 MG TABLET PEG SCH ×3 (04:49→20:49)
[2022-12-22] MEDS: APIXABAN 5 MG TABLET GT SCH ×2 (05:33→17:52)
[2022-12-22 07:48] VITALS: BP 110/73; TEMP 98.4; O2SAT 99
[2022-12-22] MEDS: ALPRAZOLAM 0.5 MG TABLET GT SCH ×2 (09:01→20:49)
[2022-12-22] MEDS: ASPIRIN 81 MG TAB.CHEW GT SCH (09:02)
[2022-12-22] MEDS: ASCORBIC ACID 500 MG TABLET GT SCH ×2 (09:02→20:49)
[2022-12-22] MEDS: OMEPRAZOLE 20 MG CAPSULE.DR GT SCH (09:02)
[2022-12-22] MEDS: CHLORHEXIDINE GLUCONATE 15 ML UDC MM SCH ×2 (09:02→20:49)
[2022-12-22] MEDS: VITAMINS A AND D 56.7 GM TUBE TP SCH ×2 (09:02→20:49)
[2022-12-22] MEDS: DOCUSATE SODIUM LIQ 100 MG/10 ML UDC GT SCH ×2 (09:02→20:47)
[2022-12-22] MEDS: METOPROLOL TARTRATE 25 MG TABLET GT SCH ×2 (09:02→20:49)
[2022-12-22] MEDS: NYSTATIN TOP POWDER 15 GM BOTTLE TP SCH ×2 (09:02→20:49)
[2022-12-22] MEDS: PROSTAT (PYXIS) 30 ML UDC GT SCH ×2 (09:02→16:25)
[2022-12-22] MEDS: HYDROGEN PEROXIDE 480 ML BOTTLE TP SCH ×2 (12:07→19:49)
[2022-12-22 20:25] VITALS: BP 94/56; TEMP 97.9; O2SAT 100
[2022-12-22 22:41] VITALS: O2SAT 99
[2022-12-23] MEDS: IPRATROPIUM NEB FS 0.5 MG/2.5 ML AMPUL.NEB NEB SCH ×4 (01:31→19:18)
[2022-12-23] MEDS: ALBUTEROL FS 2.5 MG/3 ML VIAL.NEB NEB SCH ×4 (01:31→19:18)
[2022-12-23] MEDS: BACLOFEN (10 MG) 10 MG TABLET PEG SCH ×3 (04:42→20:31)
[2022-12-23] MEDS: APIXABAN 5 MG TABLET GT SCH ×2 (05:32→17:55)
[2022-12-23 08:27] VITALS: BP 116/67; TEMP 99.6; O2SAT 96
[2022-12-23] MEDS: OMEPRAZOLE 20 MG CAPSULE.DR GT SCH (09:00)
[2022-12-23] MEDS: HYDROGEN PEROXIDE 480 ML BOTTLE TP SCH ×2 (09:12→19:18)
[2022-12-23] MEDS: METOPROLOL TARTRATE 25 MG TABLET GT SCH ×2 (09:42→20:31)
[2022-12-23] MEDS: ASPIRIN 81 MG TAB.CHEW GT SCH (09:42)
[2022-12-23] MEDS: DOCUSATE SODIUM LIQ 100 MG/10 ML UDC GT SCH ×2 (09:42→20:31)
[2022-12-23] MEDS: ASCORBIC ACID 500 MG TABLET GT SCH ×2 (09:43→20:31)
[2022-12-23] MEDS: PROSTAT (PYXIS) 30 ML UDC GT SCH ×2 (09:43→17:54)
[2022-12-23] MEDS: NYSTATIN TOP POWDER 15 GM BOTTLE TP SCH ×2 (09:43→20:31)
[2022-12-23] MEDS: VITAMINS A AND D 56.7 GM TUBE TP SCH ×2 (09:43→20:31)
[2022-12-23] MEDS: ALPRAZOLAM 0.5 MG TABLET GT SCH ×2 (09:43→20:52)
[2022-12-23] MEDS: CHLORHEXIDINE GLUCONATE 15 ML UDC MM SCH ×2 (09:43→20:31)
[2022-12-23 11:05] VITALS: O2SAT 96
[2022-12-23 20:02] VITALS: BP 93/54; TEMP 98.4; O2SAT 100
[2022-12-23 22:15] VITALS: O2SAT 98
[2022-12-23] MEDS: JEVITY 1.2 CAL 1,000 ML BOTTLE GT PRN (23:33)
[2022-12-24] MEDS: ALBUTEROL FS 2.5 MG/3 ML VIAL.NEB NEB SCH ×4 (01:53→20:17)
[2022-12-24] MEDS: IPRATROPIUM NEB FS 0.5 MG/2.5 ML AMPUL.NEB NEB SCH ×4 (01:53→20:17)
[2022-12-24] MEDS: BACLOFEN (10 MG) 10 MG TABLET PEG SCH ×3 (04:08→20:39)
[2022-12-24] MEDS: APIXABAN 5 MG TABLET GT SCH ×2 (05:43→18:39)
[2022-12-24 07:24] VITALS: BP 136/89; TEMP 98.5; O2SAT 99
[2022-12-24] MEDS: HYDROGEN PEROXIDE 480 ML BOTTLE TP SCH ×2 (08:22→20:18)
[2022-12-24] MEDS: DOCUSATE SODIUM LIQ 100 MG/10 ML UDC GT SCH ×2 (09:19→20:39)
[2022-12-24] MEDS: ASPIRIN 81 MG TAB.CHEW GT SCH (09:19)
[2022-12-24] MEDS: METOPROLOL TARTRATE 25 MG TABLET GT SCH ×2 (09:19→20:39)
[2022-12-24] MEDS: VITAMINS A AND D 56.7 GM TUBE TP SCH ×2 (09:20→20:39)
[2022-12-24] MEDS: ASCORBIC ACID 500 MG TABLET GT SCH ×2 (09:20→20:39)
[2022-12-24] MEDS: ALPRAZOLAM 0.5 MG TABLET GT SCH ×2 (09:20→20:39)
[2022-12-24] MEDS: OMEPRAZOLE 20 MG CAPSULE.DR GT SCH (09:20)
[2022-12-24] MEDS: NYSTATIN TOP POWDER 15 GM BOTTLE TP SCH (09:20)
[2022-12-24] MEDS: PROSTAT (PYXIS) 30 ML UDC GT SCH ×2 (09:20→17:10)
[2022-12-24] MEDS: CHLORHEXIDINE GLUCONATE 15 ML UDC MM SCH ×2 (09:20→20:39)
[2022-12-24 11:07] VITALS: O2SAT 97
[2022-12-24] MEDS: JEVITY 1.2 CAL 1,000 ML BOTTLE GT PRN (18:39)
[2022-12-24 20:53] VITALS: BP_SYST 108; BP_SYST 132; BP_DIAS 50; BP_DIAS 93; TEMP 98.7; O2SAT 97
[2022-12-24 22:59] VITALS: O2SAT 96
[2022-12-25] MEDS: IPRATROPIUM NEB FS 0.5 MG/2.5 ML AMPUL.NEB NEB SCH ×4 (02:03→18:51)
[2022-12-25] MEDS: ALBUTEROL FS 2.5 MG/3 ML VIAL.NEB NEB SCH ×4 (02:03→18:51)
[2022-12-25 03:27] VITALS: BP 110/58; TEMP 97.9; O2SAT 99
[2022-12-25] MEDS: BACLOFEN (10 MG) 10 MG TABLET PEG SCH ×3 (05:02→20:30)
[2022-12-25] MEDS: APIXABAN 5 MG TABLET GT SCH ×2 (06:28→17:43)
[2022-12-25 07:56] VITALS: BP 106/76; TEMP 98.5; O2SAT 97
[2022-12-25] MEDS: ASPIRIN 81 MG TAB.CHEW GT SCH (09:15)
[2022-12-25] MEDS: METOPROLOL TARTRATE 25 MG TABLET GT SCH ×2 (09:15→20:28)
[2022-12-25] MEDS: DOCUSATE SODIUM LIQ 100 MG/10 ML UDC GT SCH ×2 (09:15→20:28)
[2022-12-25] MEDS: PROSTAT (PYXIS) 30 ML UDC GT SCH ×2 (09:16→17:36)
[2022-12-25] MEDS: OMEPRAZOLE 20 MG CAPSULE.DR GT SCH (09:16)
[2022-12-25] MEDS: CHLORHEXIDINE GLUCONATE 15 ML UDC MM SCH ×2 (09:16→20:30)
[2022-12-25] MEDS: VITAMINS A AND D 56.7 GM TUBE TP SCH ×2 (09:16→20:30)
[2022-12-25] MEDS: ASCORBIC ACID 500 MG TABLET GT SCH ×2 (09:16→20:30)
[2022-12-25] MEDS: ALPRAZOLAM 0.5 MG TABLET GT SCH ×2 (09:16→20:30)
[2022-12-25] MEDS: HYDROGEN PEROXIDE 480 ML BOTTLE TP SCH ×2 (09:43→20:03)
[2022-12-25] MEDS: JEVITY 1.2 CAL 1,000 ML BOTTLE GT PRN (14:26)
[2022-12-25 15:14] VITALS: O2SAT 99
[2022-12-25 20:23] VITALS: BP 96/63; TEMP 98.5; O2SAT 100
[2022-12-25 22:51] VITALS: O2SAT 100
[2022-12-26] MEDS: ALBUTEROL FS 2.5 MG/3 ML VIAL.NEB NEB SCH ×4 (00:35→20:16)
[2022-12-26] MEDS: IPRATROPIUM NEB FS 0.5 MG/2.5 ML AMPUL.NEB NEB SCH ×4 (00:35→20:16)
[2022-12-26] MEDS: BACLOFEN (10 MG) 10 MG TABLET PEG SCH ×3 (05:26→20:27)
[2022-12-26] MEDS: APIXABAN 5 MG TABLET GT SCH ×2 (05:26→18:02)
[2022-12-26 08:00] VITALS: BP 111/78; TEMP 98.3; O2SAT 100
[2022-12-26] MEDS: HYDROGEN PEROXIDE 480 ML BOTTLE TP SCH ×2 (08:12→20:16)
[2022-12-26] MEDS: ASPIRIN 81 MG TAB.CHEW GT SCH (09:43)
[2022-12-26] MEDS: DOCUSATE SODIUM LIQ 100 MG/10 ML UDC GT SCH ×2 (09:43→20:25)
[2022-12-26] MEDS: METOPROLOL TARTRATE 25 MG TABLET GT SCH ×2 (09:44→20:26)
[2022-12-26] MEDS: OMEPRAZOLE 20 MG CAPSULE.DR GT SCH (09:44)
[2022-12-26] MEDS: ALPRAZOLAM 0.5 MG TABLET GT SCH ×2 (09:44→20:27)
[2022-12-26] MEDS: CHLORHEXIDINE GLUCONATE 15 ML UDC MM SCH ×2 (09:44→20:27)
[2022-12-26] MEDS: PROSTAT (PYXIS) 30 ML UDC GT SCH ×2 (09:44→17:00)
[2022-12-26] MEDS: VITAMINS A AND D 56.7 GM TUBE TP SCH ×2 (09:44→20:28)
[2022-12-26] MEDS: ASCORBIC ACID 500 MG TABLET GT SCH ×2 (09:44→20:27)
[2022-12-26 10:22] VITALS: O2SAT 98
[2022-12-26] MEDS: JEVITY 1.2 CAL 1,000 ML BOTTLE GT PRN (11:21)
[2022-12-26 12:00] VITALS: BP 115/65; TEMP 98.2; O2SAT 100
[2022-12-26 19:52] VITALS: BP 108/77; TEMP 98.4; O2SAT 100
[2022-12-26 23:05] VITALS: O2SAT 100
[2022-12-27] MEDS: IPRATROPIUM NEB FS 0.5 MG/2.5 ML AMPUL.NEB NEB SCH ×4 (01:59→20:19)
[2022-12-27] MEDS: ALBUTEROL FS 2.5 MG/3 ML VIAL.NEB NEB SCH ×4 (01:59→20:19)
[2022-12-27] MEDS: BACLOFEN (10 MG) 10 MG TABLET PEG SCH ×3 (05:53→20:22)
[2022-12-27] MEDS: APIXABAN 5 MG TABLET GT SCH ×2 (05:53→19:07)
[2022-12-27] MEDS: JEVITY 1.2 CAL 1,000 ML BOTTLE GT PRN (05:54)
[2022-12-27 07:41] VITALS: BP 141/81; TEMP 99.3; O2SAT 100
[2022-12-27] MEDS: HYDROGEN PEROXIDE 480 ML BOTTLE TP SCH ×2 (08:08→20:19)
[2022-12-27] MEDS: DOCUSATE SODIUM LIQ 100 MG/10 ML UDC GT SCH ×2 (09:44→20:21)
[2022-12-27] MEDS: ASPIRIN 81 MG TAB.CHEW GT SCH (09:44)
[2022-12-27] MEDS: PROSTAT (PYXIS) 30 ML UDC GT SCH ×2 (09:45→17:06)
[2022-12-27] MEDS: OMEPRAZOLE 20 MG CAPSULE.DR GT SCH (09:45)
[2022-12-27] MEDS: ASCORBIC ACID 500 MG TABLET GT SCH ×2 (09:45→20:22)
[2022-12-27] MEDS: ALPRAZOLAM 0.5 MG TABLET GT SCH ×2 (09:45→20:22)
[2022-12-27] MEDS: CHLORHEXIDINE GLUCONATE 15 ML UDC MM SCH ×2 (09:45→20:22)
[2022-12-27] MEDS: VITAMINS A AND D 56.7 GM TUBE TP SCH ×2 (09:45→20:22)
[2022-12-27] MEDS: METOPROLOL TARTRATE 25 MG TABLET GT SCH ×2 (09:45→20:21)
[2022-12-27 11:18] VITALS: O2SAT 95
[2022-12-27 14:36] VITALS: BP 144/93; TEMP 99.6; O2SAT 97
[2022-12-27 20:03] VITALS: BP 130/67; TEMP 99.1; O2SAT 100
[2022-12-27 23:08] VITALS: O2SAT 100
[2022-12-28] MEDS: ALBUTEROL FS 2.5 MG/3 ML VIAL.NEB NEB SCH ×4 (02:02→20:24)
[2022-12-28] MEDS: IPRATROPIUM NEB FS 0.5 MG/2.5 ML AMPUL.NEB NEB SCH ×4 (02:02→20:24)
[2022-12-28] MEDS: BACLOFEN (10 MG) 10 MG TABLET PEG SCH ×3 (04:38→21:31)
[2022-12-28] MEDS: JEVITY 1.2 CAL 1,000 ML BOTTLE GT PRN (04:39)
[2022-12-28] MEDS: APIXABAN 5 MG TABLET GT SCH ×2 (06:33→17:28)
[2022-12-28 07:39] VITALS: BP 122/70; TEMP 99.6; O2SAT 99
[2022-12-28] MEDS: ASPIRIN 81 MG TAB.CHEW GT SCH (09:00)
[2022-12-28] MEDS: METOPROLOL TARTRATE 25 MG TABLET GT SCH ×2 (09:00→21:31)
[2022-12-28] MEDS: PROSTAT (PYXIS) 30 ML UDC GT SCH ×2 (09:00→17:28)
[2022-12-28] MEDS: ALPRAZOLAM 0.5 MG TABLET GT SCH ×2 (09:00→21:31)
[2022-12-28] MEDS: HYDROGEN PEROXIDE 480 ML BOTTLE TP SCH ×2 (09:00→20:24)
[2022-12-28] MEDS: ASCORBIC ACID 500 MG TABLET GT SCH ×2 (09:00→21:31)
[2022-12-28] MEDS: VITAMINS A AND D 56.7 GM TUBE TP SCH ×2 (09:00→21:31)
[2022-12-28] MEDS: DOCUSATE SODIUM LIQ 100 MG/10 ML UDC GT SCH ×2 (09:00→21:30)
[2022-12-28] MEDS: OMEPRAZOLE 20 MG CAPSULE.DR GT SCH (09:00)
[2022-12-28] MEDS: CHLORHEXIDINE GLUCONATE 15 ML UDC MM SCH ×2 (09:00→21:31)
[2022-12-28 10:08] VITALS: O2SAT 97
[2022-12-28 12:21] VITALS: BP 100/53; TEMP 99.3; O2SAT 95
[2022-12-28 20:00] VITALS: BP 98/59; TEMP 98.3; O2SAT 99
[2022-12-28 23:58] VITALS: O2SAT 100
[2022-12-29] MEDS: IPRATROPIUM NEB FS 0.5 MG/2.5 ML AMPUL.NEB NEB SCH ×4 (01:55→19:47)
[2022-12-29] MEDS: ALBUTEROL FS 2.5 MG/3 ML VIAL.NEB NEB SCH ×4 (01:55→19:47)
[2022-12-29] MEDS: BACLOFEN (10 MG) 10 MG TABLET PEG SCH ×3 (04:31→21:32)
[2022-12-29] MEDS: JEVITY 1.2 CAL 1,000 ML BOTTLE GT PRN (06:00)
[2022-12-29] MEDS: APIXABAN 5 MG TABLET GT SCH ×2 (06:38→18:00)
[2022-12-29 07:30] VITALS: BP 117/61; TEMP 98.2; O2SAT 97
[2022-12-29] MEDS: HYDROGEN PEROXIDE 480 ML BOTTLE TP SCH ×2 (07:49→19:47)
[2022-12-29] MEDS: ASPIRIN 81 MG TAB.CHEW GT SCH (08:39)
[2022-12-29] MEDS: DOCUSATE SODIUM LIQ 100 MG/10 ML UDC GT SCH ×2 (08:39→21:33)
[2022-12-29] MEDS: METOPROLOL TARTRATE 25 MG TABLET GT SCH ×2 (08:40→21:00)
[2022-12-29] MEDS: PROSTAT (PYXIS) 30 ML UDC GT SCH ×2 (08:41→17:59)
[2022-12-29] MEDS: ASCORBIC ACID 500 MG TABLET GT SCH ×2 (08:41→21:33)
[2022-12-29] MEDS: OMEPRAZOLE 20 MG CAPSULE.DR GT SCH (08:41)
[2022-12-29] MEDS: ALPRAZOLAM 0.5 MG TABLET GT SCH ×2 (08:42→21:33)
[2022-12-29] MEDS: VITAMINS A AND D 56.7 GM TUBE TP SCH ×2 (08:43→21:32)
[2022-12-29] MEDS: CHLORHEXIDINE GLUCONATE 15 ML UDC MM SCH ×2 (08:43→21:32)
[2022-12-29 11:36] VITALS: O2SAT 98
[2022-12-29 19:46] VITALS: BP 90/60; TEMP 98; O2SAT 99
[2022-12-29 22:00] VITALS: BP 89/58; TEMP 98; O2SAT 98
[2022-12-29 22:41] VITALS: O2SAT 98
[2022-12-30] MEDS: IPRATROPIUM NEB FS 0.5 MG/2.5 ML AMPUL.NEB NEB SCH ×4 (00:40→20:05)
[2022-12-30] MEDS: ALBUTEROL FS 2.5 MG/3 ML VIAL.NEB NEB SCH ×4 (00:40→20:05)
[2022-12-30] MEDS: JEVITY 1.2 CAL 1,000 ML BOTTLE GT PRN ×2 (00:54→23:00)
[2022-12-30] MEDS: BACLOFEN (10 MG) 10 MG TABLET PEG SCH ×3 (05:40→21:13)
[2022-12-30] MEDS: APIXABAN 5 MG TABLET GT SCH ×2 (05:41→17:59)
[2022-12-30 07:42] VITALS: BP 106/66; TEMP 97.4; O2SAT 100
[2022-12-30] MEDS: HYDROGEN PEROXIDE 480 ML BOTTLE TP SCH ×2 (09:16→20:05)
[2022-12-30] MEDS: ASPIRIN 81 MG TAB.CHEW GT SCH (09:21)
[2022-12-30] MEDS: DOCUSATE SODIUM LIQ 100 MG/10 ML UDC GT SCH ×2 (09:21→21:12)
[2022-12-30] MEDS: OMEPRAZOLE 20 MG CAPSULE.DR GT SCH (09:22)
[2022-12-30] MEDS: METOPROLOL TARTRATE 25 MG TABLET GT SCH ×2 (09:22→21:13)
[2022-12-30] MEDS: ASCORBIC ACID 500 MG TABLET GT SCH ×2 (09:22→21:13)
[2022-12-30] MEDS: PROSTAT (PYXIS) 30 ML UDC GT SCH ×2 (09:22→17:58)
[2022-12-30] MEDS: ALPRAZOLAM 0.5 MG TABLET GT SCH ×2 (09:23→21:13)
[2022-12-30] MEDS: CHLORHEXIDINE GLUCONATE 15 ML UDC MM SCH ×2 (09:24→21:13)
[2022-12-30] MEDS: VITAMINS A AND D 56.7 GM TUBE TP SCH ×2 (09:24→21:13)
[2022-12-30 12:27] VITALS: BP 98/55; TEMP 98.6; O2SAT 97
[2022-12-30 13:25] VITALS: O2SAT 97
[2022-12-30 19:38] VITALS: BP 99/47; TEMP 98.9; O2SAT 99
[2022-12-30 22:58] VITALS: O2SAT 98
[2022-12-30 23:51] VITALS: BP 104/58; TEMP 97.3; O2SAT 98
[2022-12-31] MEDS: ALBUTEROL FS 2.5 MG/3 ML VIAL.NEB NEB SCH ×4 (01:30→19:55)
[2022-12-31] MEDS: IPRATROPIUM NEB FS 0.5 MG/2.5 ML AMPUL.NEB NEB SCH ×4 (01:30→19:55)
[2022-12-31] MEDS: BACLOFEN (10 MG) 10 MG TABLET PEG SCH ×3 (05:10→21:07)
[2022-12-31] MEDS: APIXABAN 5 MG TABLET GT SCH ×2 (06:31→17:32)
[2022-12-31 07:25] VITALS: BP 93/63; TEMP 99.4; O2SAT 96
[2022-12-31] MEDS: METOPROLOL TARTRATE 25 MG TABLET GT SCH ×2 (08:01→21:07)
[2022-12-31] MEDS: DOCUSATE SODIUM LIQ 100 MG/10 ML UDC GT SCH ×2 (08:01→21:07)
[2022-12-31] MEDS: ASPIRIN 81 MG TAB.CHEW GT SCH (08:01)
[2022-12-31] MEDS: ASCORBIC ACID 500 MG TABLET GT SCH ×2 (08:01→21:07)
[2022-12-31] MEDS: OMEPRAZOLE 20 MG CAPSULE.DR GT SCH (08:01)
[2022-12-31] MEDS: CHLORHEXIDINE GLUCONATE 15 ML UDC MM SCH ×2 (08:01→21:07)
[2022-12-31] MEDS: PROSTAT (PYXIS) 30 ML UDC GT SCH ×2 (08:01→17:07)
[2022-12-31] MEDS: ALPRAZOLAM 0.5 MG TABLET GT SCH ×2 (08:01→21:07)
[2022-12-31] MEDS: VITAMINS A AND D 56.7 GM TUBE TP SCH ×2 (08:02→21:07)
[2022-12-31] MEDS: HYDROGEN PEROXIDE 480 ML BOTTLE TP SCH ×2 (09:36→19:55)
[2022-12-31 11:53] VITALS: O2SAT 97
[2022-12-31] MEDS: JEVITY 1.2 CAL 1,000 ML BOTTLE GT PRN (17:07)
[2022-12-31 19:02] VITALS: BP 103/61; TEMP 100.4; O2SAT 99
[2022-12-31] MEDS: ACETAMINOPHEN 650 MG/20 ML UDC- SA PATIENTS-PAIN ONLY GT PRN (21:09)
[2022-12-31 23:03] VITALS: O2SAT 100
[2023-01-01 00:05] VITALS: BP 103/61; TEMP 99; O2SAT 99
[2023-01-01] MEDS: ALBUTEROL FS 2.5 MG/3 ML VIAL.NEB NEB SCH ×4 (01:44→19:53)
[2023-01-01] MEDS: IPRATROPIUM NEB FS 0.5 MG/2.5 ML AMPUL.NEB NEB SCH ×4 (01:44→19:53)
[2023-01-01] MEDS: BACLOFEN (10 MG) 10 MG TABLET PEG SCH ×3 (05:09→20:44)
[2023-01-01] MEDS: APIXABAN 5 MG TABLET GT SCH ×2 (05:31→18:36)
[2023-01-01 07:25] VITALS: BP 128/80; TEMP 98.4; O2SAT 100
[2023-01-01] MEDS: OMEPRAZOLE 20 MG CAPSULE.DR GT SCH (09:00)
[2023-01-01] MEDS: VITAMINS A AND D 56.7 GM TUBE TP SCH ×2 (09:00→20:44)
[2023-01-01] MEDS: ASPIRIN 81 MG TAB.CHEW GT SCH (09:00)
[2023-01-01] MEDS: METOPROLOL TARTRATE 25 MG TABLET GT SCH ×2 (09:00→20:43)
[2023-01-01] MEDS: ALPRAZOLAM 0.5 MG TABLET GT SCH ×2 (09:00→20:43)
[2023-01-01] MEDS: CHLORHEXIDINE GLUCONATE 15 ML UDC MM SCH ×2 (09:00→20:43)
[2023-01-01] MEDS: DOCUSATE SODIUM LIQ 100 MG/10 ML UDC GT SCH ×2 (09:00→20:42)
[2023-01-01] MEDS: PROSTAT (PYXIS) 30 ML UDC GT SCH ×2 (09:00→17:37)
[2023-01-01] MEDS: ASCORBIC ACID 500 MG TABLET GT SCH ×2 (09:00→20:43)
[2023-01-01] MEDS: HYDROGEN PEROXIDE 480 ML BOTTLE TP SCH ×2 (09:08→19:53)
[2023-01-01 14:39] VITALS: O2SAT 100
[2023-01-01 18:59] VITALS: BP 98/63; TEMP 100.7; O2SAT 99
[2023-01-01 19:00] VITALS: BP 101/64; TEMP 100.7; O2SAT 99
[2023-01-01 22:40] VITALS: O2SAT 100
[2023-01-02] MEDS: IPRATROPIUM NEB FS 0.5 MG/2.5 ML AMPUL.NEB NEB SCH ×4 (01:24→18:57)
[2023-01-02] MEDS: ALBUTEROL FS 2.5 MG/3 ML VIAL.NEB NEB SCH ×4 (01:24→18:57)
[2023-01-02] MEDS: BACLOFEN (10 MG) 10 MG TABLET PEG SCH ×3 (05:13→20:33)
[2023-01-02] MEDS: APIXABAN 5 MG TABLET GT SCH ×2 (05:13→18:59)
[2023-01-02] MEDS: HYDROCODONE/APAP 5/325MG TABLET GT PRN (05:28)
[2023-01-02 07:48] VITALS: BP 89/56; TEMP 98.8; O2SAT 99
[2023-01-02] MEDS: ASPIRIN 81 MG TAB.CHEW GT SCH (09:00)
[2023-01-02] MEDS: METOPROLOL TARTRATE 25 MG TABLET GT SCH ×2 (09:00→20:33)
[2023-01-02] MEDS: CHLORHEXIDINE GLUCONATE 15 ML UDC MM SCH ×2 (09:00→20:33)
[2023-01-02] MEDS: DOCUSATE SODIUM LIQ 100 MG/10 ML UDC GT SCH ×2 (09:00→20:32)
[2023-01-02] MEDS: PROSTAT (PYXIS) 30 ML UDC GT SCH ×2 (09:00→17:51)
[2023-01-02] MEDS: ALPRAZOLAM 0.5 MG TABLET GT SCH ×2 (09:00→21:00)
[2023-01-02] MEDS: OMEPRAZOLE 20 MG CAPSULE.DR GT SCH (09:00)
[2023-01-02] MEDS: ASCORBIC ACID 500 MG TABLET GT SCH ×2 (09:00→20:33)
[2023-01-02] MEDS: VITAMINS A AND D 56.7 GM TUBE TP SCH ×2 (09:00→20:33)
[2023-01-02] MEDS: HYDROGEN PEROXIDE 480 ML BOTTLE TP SCH ×2 (09:19→20:17)
[2023-01-02 10:28] VITALS: O2SAT 100
[2023-01-02] MEDS: JEVITY 1.2 CAL 1,000 ML BOTTLE GT PRN (12:56)
[2023-01-02 14:26] VITALS: BP 110/62; TEMP 98.8; O2SAT 99
[2023-01-02 22:32] VITALS: O2SAT 100
[2023-01-03] MEDS: IPRATROPIUM NEB FS 0.5 MG/2.5 ML AMPUL.NEB NEB SCH ×4 (01:23→19:49)
[2023-01-03] MEDS: ALBUTEROL FS 2.5 MG/3 ML VIAL.NEB NEB SCH ×4 (01:23→19:49)
[2023-01-03] MEDS: APIXABAN 5 MG TABLET GT SCH ×2 (05:16→18:42)
[2023-01-03] MEDS: BACLOFEN (10 MG) 10 MG TABLET PEG SCH ×3 (05:16→21:28)
[2023-01-03] MEDS: JEVITY 1.2 CAL 1,000 ML BOTTLE GT PRN (06:16)
[2023-01-03 07:26] VITALS: BP 107/69; TEMP 98.3; O2SAT 100
[2023-01-03] MEDS: HYDROGEN PEROXIDE 480 ML BOTTLE TP SCH ×2 (09:05→20:38)
[2023-01-03] MEDS: DOCUSATE SODIUM LIQ 100 MG/10 ML UDC GT SCH ×2 (09:19→21:27)
[2023-01-03] MEDS: ASPIRIN 81 MG TAB.CHEW GT SCH (09:19)
[2023-01-03] MEDS: PROSTAT (PYXIS) 30 ML UDC GT SCH ×2 (09:20→17:05)
[2023-01-03] MEDS: OMEPRAZOLE 20 MG CAPSULE.DR GT SCH (09:20)
[2023-01-03] MEDS: ASCORBIC ACID 500 MG TABLET GT SCH ×2 (09:20→21:28)
[2023-01-03] MEDS: CHLORHEXIDINE GLUCONATE 15 ML UDC MM SCH ×2 (09:20→21:28)
[2023-01-03] MEDS: ALPRAZOLAM 0.5 MG TABLET GT SCH ×2 (09:20→21:28)
[2023-01-03] MEDS: METOPROLOL TARTRATE 25 MG TABLET GT SCH ×2 (09:20→21:27)
[2023-01-03] MEDS: VITAMINS A AND D 56.7 GM TUBE TP SCH ×2 (09:20→21:28)
[2023-01-03 14:42] VITALS: O2SAT 100
[2023-01-03] MEDS: HYDROCODONE/APAP 5/325MG TABLET GT PRN (16:01)
[2023-01-03 20:00] VITALS: BP 99/67; TEMP 98.7; O2SAT 99
[2023-01-03 22:43] VITALS: O2SAT 100
[2023-01-04] MEDS: ALBUTEROL FS 2.5 MG/3 ML VIAL.NEB NEB SCH ×4 (02:10→19:54)
[2023-01-04] MEDS: IPRATROPIUM NEB FS 0.5 MG/2.5 ML AMPUL.NEB NEB SCH ×4 (02:10→19:54)
[2023-01-04] MEDS: BACLOFEN (10 MG) 10 MG TABLET PEG SCH ×3 (05:39→20:45)
[2023-01-04] MEDS: APIXABAN 5 MG TABLET GT SCH ×2 (05:39→18:36)
[2023-01-04] MEDS: JEVITY 1.2 CAL 1,000 ML BOTTLE GT PRN ×2 (06:18→22:40)
[2023-01-04 07:21] VITALS: BP 106/70; TEMP 98.7; O2SAT 100
[2023-01-04] MEDS: HYDROGEN PEROXIDE 480 ML BOTTLE TP SCH ×2 (09:20→19:54)
[2023-01-04] MEDS: METOPROLOL TARTRATE 25 MG TABLET GT SCH ×2 (09:51→20:45)
[2023-01-04] MEDS: OMEPRAZOLE 20 MG CAPSULE.DR GT SCH (09:51)
[2023-01-04] MEDS: DOCUSATE SODIUM LIQ 100 MG/10 ML UDC GT SCH ×2 (09:51→20:45)
[2023-01-04] MEDS: ASCORBIC ACID 500 MG TABLET GT SCH ×2 (09:51→20:45)
[2023-01-04] MEDS: ASPIRIN 81 MG TAB.CHEW GT SCH (09:51)
[2023-01-04] MEDS: CHLORHEXIDINE GLUCONATE 15 ML UDC MM SCH ×2 (09:51→20:45)
[2023-01-04] MEDS: PROSTAT (PYXIS) 30 ML UDC GT SCH ×2 (09:51→17:44)
[2023-01-04] MEDS: ALPRAZOLAM 0.5 MG TABLET GT SCH ×2 (09:51→20:45)
[2023-01-04] MEDS: VITAMINS A AND D 56.7 GM TUBE TP SCH ×2 (09:52→20:45)
[2023-01-04 12:25] VITALS: O2SAT 100
[2023-01-04 20:00] VITALS: BP 139/69; TEMP 98; O2SAT 99
[2023-01-04 23:05] VITALS: O2SAT 98
[2023-01-05] MEDS: ALBUTEROL FS 2.5 MG/3 ML VIAL.NEB NEB SCH ×4 (01:22→19:47)
[2023-01-05] MEDS: IPRATROPIUM NEB FS 0.5 MG/2.5 ML AMPUL.NEB NEB SCH ×4 (01:22→19:47)
[2023-01-05] MEDS: BACLOFEN (10 MG) 10 MG TABLET PEG SCH ×3 (05:40→21:16)
[2023-01-05] MEDS: APIXABAN 5 MG TABLET GT SCH ×2 (05:40→17:38)
[2023-01-05 07:42] VITALS: BP 118/71; TEMP 98.9; O2SAT 100
[2023-01-05] MEDS: ASPIRIN 81 MG TAB.CHEW GT SCH (08:01)
[2023-01-05] MEDS: DOCUSATE SODIUM LIQ 100 MG/10 ML UDC GT SCH ×2 (08:01→21:15)
[2023-01-05] MEDS: METOPROLOL TARTRATE 25 MG TABLET GT SCH ×2 (08:02→21:15)
[2023-01-05] MEDS: PROSTAT (PYXIS) 30 ML UDC GT SCH ×2 (08:03→16:32)
[2023-01-05] MEDS: ALPRAZOLAM 0.5 MG TABLET GT SCH ×2 (08:03→21:15)
[2023-01-05] MEDS: OMEPRAZOLE 20 MG CAPSULE.DR GT SCH (08:03)
[2023-01-05] MEDS: ASCORBIC ACID 500 MG TABLET GT SCH ×2 (08:03→21:15)
[2023-01-05] MEDS: VITAMINS A AND D 56.7 GM TUBE TP SCH ×2 (08:04→21:16)
[2023-01-05] MEDS: CHLORHEXIDINE GLUCONATE 15 ML UDC MM SCH ×2 (08:04→21:16)
[2023-01-05] MEDS: HYDROGEN PEROXIDE 480 ML BOTTLE TP SCH ×2 (09:13→19:47)
[2023-01-05 09:35] VITALS: O2SAT 98
[2023-01-05] MEDS: HYDROCODONE/APAP 5/325MG TABLET GT PRN (16:38)
[2023-01-05 19:27] VITALS: BP 103/73; TEMP 98.2; O2SAT 100
[2023-01-05 23:02] VITALS: O2SAT 100
[2023-01-06 00:35] VITALS: BP 117/67; TEMP 98.4; O2SAT 100
[2023-01-06] MEDS: ALBUTEROL FS 2.5 MG/3 ML VIAL.NEB NEB SCH ×4 (00:55→18:47)
[2023-01-06] MEDS: IPRATROPIUM NEB FS 0.5 MG/2.5 ML AMPUL.NEB NEB SCH ×4 (00:55→18:47)
[2023-01-06] MEDS: BACLOFEN (10 MG) 10 MG TABLET PEG SCH ×3 (05:12→21:17)
[2023-01-06] MEDS: JEVITY 1.2 CAL 1,000 ML BOTTLE GT PRN ×2 (06:00→22:17)
[2023-01-06] MEDS: APIXABAN 5 MG TABLET GT SCH ×2 (06:33→17:37)
[2023-01-06] MEDS: CHLORHEXIDINE GLUCONATE 15 ML UDC MM SCH ×2 (09:01→21:17)
[2023-01-06] MEDS: ALPRAZOLAM 0.5 MG TABLET GT SCH ×2 (09:01→21:17)
[2023-01-06] MEDS: DOCUSATE SODIUM LIQ 100 MG/10 ML UDC GT SCH ×2 (09:01→21:16)
[2023-01-06] MEDS: METOPROLOL TARTRATE 25 MG TABLET GT SCH ×2 (09:01→21:17)
[2023-01-06] MEDS: OMEPRAZOLE 20 MG CAPSULE.DR GT SCH (09:01)
[2023-01-06] MEDS: PROSTAT (PYXIS) 30 ML UDC GT SCH ×2 (09:01→17:37)
[2023-01-06] MEDS: ASPIRIN 81 MG TAB.CHEW GT SCH (09:01)
[2023-01-06] MEDS: ASCORBIC ACID 500 MG TABLET GT SCH ×2 (09:01→21:17)
[2023-01-06] MEDS: VITAMINS A AND D 56.7 GM TUBE TP SCH ×2 (09:02→21:17)
[2023-01-06] MEDS: HYDROGEN PEROXIDE 480 ML BOTTLE TP SCH ×2 (09:10→20:07)
[2023-01-06 11:47] VITALS: O2SAT 100
[2023-01-06 19:06] VITALS: BP 103/54; TEMP 99.3; O2SAT 99
[2023-01-06 22:42] VITALS: O2SAT 100
[2023-01-06] MEDS: LORAZEPAM 1 MG TABLET GT PRN (23:05)
[2023-01-07 00:06] VITALS: BP 134/97; TEMP 98.9; O2SAT 100
[2023-01-07] MEDS: ALBUTEROL FS 2.5 MG/3 ML VIAL.NEB NEB SCH ×4 (00:37→18:37)
[2023-01-07] MEDS: IPRATROPIUM NEB FS 0.5 MG/2.5 ML AMPUL.NEB NEB SCH ×4 (00:37→18:36)
[2023-01-07] MEDS: BACLOFEN (10 MG) 10 MG TABLET PEG SCH ×3 (05:36→20:26)
[2023-01-07] MEDS: JEVITY 1.2 CAL 1,000 ML BOTTLE GT PRN ×2 (05:36→18:06)
[2023-01-07] MEDS: APIXABAN 5 MG TABLET GT SCH ×2 (05:36→17:54)
[2023-01-07] MEDS: MAGNESIUM HYDROXIDE 30 ML UDC GT PRN (06:51)
[2023-01-07 07:50] VITALS: BP 149/82; TEMP 98.8; O2SAT 99
[2023-01-07] MEDS: OMEPRAZOLE 20 MG CAPSULE.DR GT SCH (08:22)
[2023-01-07] MEDS: ALPRAZOLAM 0.5 MG TABLET GT SCH ×2 (08:26→20:26)
[2023-01-07] MEDS: DOCUSATE SODIUM LIQ 100 MG/10 ML UDC GT SCH ×2 (08:28→20:25)
[2023-01-07] MEDS: ASPIRIN 81 MG TAB.CHEW GT SCH (08:28)
[2023-01-07] MEDS: ASCORBIC ACID 500 MG TABLET GT SCH ×2 (08:29→20:26)
[2023-01-07] MEDS: PROSTAT (PYXIS) 30 ML UDC GT SCH ×2 (08:29→17:53)
[2023-01-07] MEDS: METOPROLOL TARTRATE 25 MG TABLET GT SCH ×2 (08:29→20:26)
[2023-01-07] MEDS: CHLORHEXIDINE GLUCONATE 15 ML UDC MM SCH ×2 (08:29→20:26)
[2023-01-07] MEDS: HYDROGEN PEROXIDE 480 ML BOTTLE TP SCH ×2 (08:30→20:14)
[2023-01-07] MEDS: VITAMINS A AND D 56.7 GM TUBE TP SCH ×2 (08:30→20:26)
[2023-01-07 11:32] VITALS: O2SAT 99
[2023-01-07 14:41] VITALS: BP 138/80; TEMP 98.8; O2SAT 100
[2023-01-07 19:35] VITALS: BP 111/68; TEMP 98.9; O2SAT 99
[2023-01-07 22:32] VITALS: O2SAT 98
[2023-01-08] MEDS: IPRATROPIUM NEB FS 0.5 MG/2.5 ML AMPUL.NEB NEB SCH ×4 (00:49→18:37)
[2023-01-08] MEDS: ALBUTEROL FS 2.5 MG/3 ML VIAL.NEB NEB SCH ×4 (00:49→18:37)
[2023-01-08] MEDS: BACLOFEN (10 MG) 10 MG TABLET PEG SCH ×3 (05:06→20:36)
[2023-01-08] MEDS: APIXABAN 5 MG TABLET GT SCH ×2 (06:26→17:36)
[2023-01-08 07:33] VITALS: BP 149/99; TEMP 98.7; O2SAT 100
[2023-01-08] MEDS: ASPIRIN 81 MG TAB.CHEW GT SCH (09:19)
[2023-01-08] MEDS: DOCUSATE SODIUM LIQ 100 MG/10 ML UDC GT SCH ×2 (09:19→20:35)
[2023-01-08] MEDS: OMEPRAZOLE 20 MG CAPSULE.DR GT SCH (09:20)
[2023-01-08] MEDS: PROSTAT (PYXIS) 30 ML UDC GT SCH ×2 (09:20→16:11)
[2023-01-08] MEDS: CHLORHEXIDINE GLUCONATE 15 ML UDC MM SCH ×2 (09:21→20:36)
[2023-01-08] MEDS: ASCORBIC ACID 500 MG TABLET GT SCH ×2 (09:21→20:36)
[2023-01-08] MEDS: HYDROGEN PEROXIDE 480 ML BOTTLE TP SCH ×2 (09:21→20:05)
[2023-01-08] MEDS: VITAMINS A AND D 56.7 GM TUBE TP SCH ×2 (09:21→20:36)
[2023-01-08] MEDS: METOPROLOL TARTRATE 25 MG TABLET GT SCH ×2 (09:23→20:36)
[2023-01-08] MEDS: ALPRAZOLAM 0.5 MG TABLET GT SCH ×2 (09:24→20:36)
[2023-01-08 11:30] VITALS: O2SAT 100
[2023-01-08] MEDS: ACETAMINOPHEN 650 MG/20 ML UDC- SA PATIENTS-PAIN ONLY GT PRN (16:15)
[2023-01-08 19:33] VITALS: BP 107/72; TEMP 97.6; O2SAT 100
[2023-01-08 23:24] VITALS: O2SAT 99
[2023-01-09] MEDS: ALBUTEROL FS 2.5 MG/3 ML VIAL.NEB NEB SCH ×5 (00:36→20:04)
[2023-01-09] MEDS: IPRATROPIUM NEB FS 0.5 MG/2.5 ML AMPUL.NEB NEB SCH ×5 (00:36→20:04)
[2023-01-09] MEDS: LORAZEPAM 1 MG TABLET GT PRN (03:21)
[2023-01-09] MEDS: BACLOFEN (10 MG) 10 MG TABLET PEG SCH ×3 (05:34→21:18)
[2023-01-09] MEDS: APIXABAN 5 MG TABLET GT SCH ×2 (05:34→17:36)
[2023-01-09] MEDS: ASPIRIN 81 MG TAB.CHEW GT SCH (08:17)
[2023-01-09] MEDS: DOCUSATE SODIUM LIQ 100 MG/10 ML UDC GT SCH ×2 (08:22→21:18)
[2023-01-09] MEDS: METOPROLOL TARTRATE 25 MG TABLET GT SCH ×2 (08:23→21:18)
[2023-01-09] MEDS: PROSTAT (PYXIS) 30 ML UDC GT SCH ×2 (08:23→17:35)
[2023-01-09] MEDS: OMEPRAZOLE 20 MG CAPSULE.DR GT SCH (08:23)
[2023-01-09] MEDS: ASCORBIC ACID 500 MG TABLET GT SCH ×2 (08:24→21:18)
[2023-01-09] MEDS: CHLORHEXIDINE GLUCONATE 15 ML UDC MM SCH ×2 (08:25→21:18)
[2023-01-09] MEDS: ALPRAZOLAM 0.5 MG TABLET GT SCH ×2 (08:25→21:18)
[2023-01-09] MEDS: VITAMINS A AND D 56.7 GM TUBE TP SCH ×2 (08:25→21:18)
[2023-01-09] MEDS: HYDROGEN PEROXIDE 480 ML BOTTLE TP SCH ×2 (09:00→20:26)
[2023-01-09 09:40] VITALS: BP 142/74; TEMP 98.6; O2SAT 100
[2023-01-09] MEDS: LANOLIN/MIN OIL/PETROLAT,WHT 3.5 GM TUBE EACHEYE PRN (12:14)
[2023-01-09 12:50] VITALS: O2SAT 100
[2023-01-09] MEDS: JEVITY 1.2 CAL 1,000 ML BOTTLE GT PRN (15:32)
[2023-01-09] MEDS: HYDROCODONE/APAP 5/325MG TABLET GT PRN (19:25)
[2023-01-09 20:27] VITALS: BP 130/91; TEMP 98.2; O2SAT 97
[2023-01-09 22:56] VITALS: O2SAT 98
[2023-01-10] MEDS: IPRATROPIUM NEB FS 0.5 MG/2.5 ML AMPUL.NEB NEB SCH ×4 (01:59→19:48)
[2023-01-10] MEDS: ALBUTEROL FS 2.5 MG/3 ML VIAL.NEB NEB SCH ×4 (01:59→19:48)
[2023-01-10] MEDS: BACLOFEN (10 MG) 10 MG TABLET PEG SCH ×3 (05:37→20:50)
[2023-01-10] MEDS: APIXABAN 5 MG TABLET GT SCH ×2 (05:37→17:31)
[2023-01-10 07:23] VITALS: BP 113/66; TEMP 98.2; O2SAT 100
[2023-01-10] MEDS: DOCUSATE SODIUM LIQ 100 MG/10 ML UDC GT SCH ×2 (08:06→20:49)
[2023-01-10] MEDS: ASPIRIN 81 MG TAB.CHEW GT SCH (08:06)
[2023-01-10] MEDS: ASCORBIC ACID 500 MG TABLET GT SCH ×2 (08:07→20:50)
[2023-01-10] MEDS: ALPRAZOLAM 0.5 MG TABLET GT SCH ×2 (08:07→20:50)
[2023-01-10] MEDS: OMEPRAZOLE 20 MG CAPSULE.DR GT SCH (08:07)
[2023-01-10] MEDS: METOPROLOL TARTRATE 25 MG TABLET GT SCH ×2 (08:07→20:50)
[2023-01-10] MEDS: PROSTAT (PYXIS) 30 ML UDC GT SCH ×2 (08:07→16:08)
[2023-01-10] MEDS: CHLORHEXIDINE GLUCONATE 15 ML UDC MM SCH ×2 (08:08→20:50)
[2023-01-10] MEDS: VITAMINS A AND D 56.7 GM TUBE TP SCH ×2 (08:09→20:50)
[2023-01-10] MEDS: JEVITY 1.2 CAL 1,000 ML BOTTLE GT PRN (09:28)
[2023-01-10] MEDS: HYDROGEN PEROXIDE 480 ML BOTTLE TP SCH ×2 (09:50→21:00)
[2023-01-10 12:04] VITALS: O2SAT 100
[2023-01-10 19:57] VITALS: BP 115/71; TEMP 98.1; O2SAT 95
[2023-01-10 23:57] VITALS: O2SAT 98
[2023-01-11] MEDS: ALBUTEROL FS 2.5 MG/3 ML VIAL.NEB NEB SCH ×4 (02:02→19:50)
[2023-01-11] MEDS: IPRATROPIUM NEB FS 0.5 MG/2.5 ML AMPUL.NEB NEB SCH ×4 (02:02→19:50)
[2023-01-11] MEDS: JEVITY 1.2 CAL 1,000 ML BOTTLE GT PRN (05:43)
[2023-01-11] MEDS: BACLOFEN (10 MG) 10 MG TABLET PEG SCH ×3 (05:43→20:52)
[2023-01-11] MEDS: APIXABAN 5 MG TABLET GT SCH ×2 (05:43→17:30)
[2023-01-11 07:37] VITALS: BP 104/79; TEMP 97.4; O2SAT 100
[2023-01-11] MEDS: ASCORBIC ACID 500 MG TABLET GT SCH ×2 (08:02→20:52)
[2023-01-11] MEDS: ALPRAZOLAM 0.5 MG TABLET GT SCH ×2 (08:02→20:52)
[2023-01-11] MEDS: METOPROLOL TARTRATE 25 MG TABLET GT SCH ×2 (08:02→20:52)
[2023-01-11] MEDS: OMEPRAZOLE 20 MG CAPSULE.DR GT SCH (08:02)
[2023-01-11] MEDS: CHLORHEXIDINE GLUCONATE 15 ML UDC MM SCH ×2 (08:02→20:52)
[2023-01-11] MEDS: DOCUSATE SODIUM LIQ 100 MG/10 ML UDC GT SCH ×2 (08:02→20:51)
[2023-01-11] MEDS: ASPIRIN 81 MG TAB.CHEW GT SCH (08:02)
[2023-01-11] MEDS: PROSTAT (PYXIS) 30 ML UDC GT SCH ×2 (08:02→16:14)
[2023-01-11] MEDS: VITAMINS A AND D 56.7 GM TUBE TP SCH ×2 (08:03→20:52)
[2023-01-11] MEDS: HYDROGEN PEROXIDE 480 ML BOTTLE TP SCH ×2 (09:10→19:50)
[2023-01-11 11:45] VITALS: O2SAT 100
[2023-01-11 20:00] VITALS: BP 132/75; TEMP 98.4; O2SAT 99
[2023-01-11 23:15] VITALS: O2SAT 97
[2023-01-12] MEDS: IPRATROPIUM NEB FS 0.5 MG/2.5 ML AMPUL.NEB NEB SCH ×4 (01:50→19:50)
[2023-01-12] MEDS: ALBUTEROL FS 2.5 MG/3 ML VIAL.NEB NEB SCH ×4 (01:50→19:50)
[2023-01-12] MEDS: JEVITY 1.2 CAL 1,000 ML BOTTLE GT PRN (02:00)
[2023-01-12] MEDS: BACLOFEN (10 MG) 10 MG TABLET PEG SCH ×3 (05:37→20:55)
[2023-01-12] MEDS: APIXABAN 5 MG TABLET GT SCH ×2 (05:37→19:01)
[2023-01-12 07:22] VITALS: BP 110/74; TEMP 98.6; O2SAT 99
[2023-01-12] MEDS: DOCUSATE SODIUM LIQ 100 MG/10 ML UDC GT SCH ×2 (08:34→20:55)
[2023-01-12] MEDS: ASPIRIN 81 MG TAB.CHEW GT SCH (08:34)
[2023-01-12] MEDS: METOPROLOL TARTRATE 25 MG TABLET GT SCH ×2 (08:35→20:55)
[2023-01-12] MEDS: PROSTAT (PYXIS) 30 ML UDC GT SCH ×2 (08:36→17:28)
[2023-01-12] MEDS: ALPRAZOLAM 0.5 MG TABLET GT SCH ×2 (08:36→20:55)
[2023-01-12] MEDS: ASCORBIC ACID 500 MG TABLET GT SCH ×2 (08:36→20:55)
[2023-01-12] MEDS: OMEPRAZOLE 20 MG CAPSULE.DR GT SCH (08:36)
[2023-01-12] MEDS: VITAMINS A AND D 56.7 GM TUBE TP SCH ×2 (08:37→20:55)
[2023-01-12] MEDS: CHLORHEXIDINE GLUCONATE 15 ML UDC MM SCH ×2 (08:37→20:55)
[2023-01-12] MEDS: HYDROGEN PEROXIDE 480 ML BOTTLE TP SCH ×2 (09:20→19:50)
[2023-01-12] MEDS ORDERED: LORAZEPAM 1 MG TABLET GT PRN (09:30)
[2023-01-12 10:16] VITALS: O2SAT 99
[2023-01-12 19:02] VITALS: BP 116/73; TEMP 98.4; O2SAT 100
[2023-01-12 23:17] VITALS: O2SAT 100
[2023-01-13 00:29] VITALS: BP 104/69; TEMP 98.4; O2SAT 100
[2023-01-13] MEDS: ALBUTEROL FS 2.5 MG/3 ML VIAL.NEB NEB SCH ×4 (01:54→18:44)
[2023-01-13] MEDS: IPRATROPIUM NEB FS 0.5 MG/2.5 ML AMPUL.NEB NEB SCH ×4 (01:54→18:44)
[2023-01-13] MEDS: BACLOFEN (10 MG) 10 MG TABLET PEG SCH ×3 (05:17→20:37)
[2023-01-13] MEDS: JEVITY 1.2 CAL 1,000 ML BOTTLE GT PRN ×2 (05:17→23:01)
[2023-01-13] MEDS: APIXABAN 5 MG TABLET GT SCH ×2 (05:31→17:37)
[2023-01-13 08:15] VITALS: BP 135/60; TEMP 98.6; O2SAT 98
[2023-01-13] MEDS: HYDROGEN PEROXIDE 480 ML BOTTLE TP SCH ×2 (09:25→20:17)
[2023-01-13] MEDS: ASPIRIN 81 MG TAB.CHEW GT SCH (09:27)
[2023-01-13] MEDS: DOCUSATE SODIUM LIQ 100 MG/10 ML UDC GT SCH ×2 (09:27→20:37)
[2023-01-13] MEDS: METOPROLOL TARTRATE 25 MG TABLET GT SCH ×2 (09:28→20:37)
[2023-01-13] MEDS: VITAMINS A AND D 56.7 GM TUBE TP SCH ×2 (09:28→20:37)
[2023-01-13] MEDS: CHLORHEXIDINE GLUCONATE 15 ML UDC MM SCH ×2 (09:28→20:37)
[2023-01-13] MEDS: PROSTAT (PYXIS) 30 ML UDC GT SCH ×2 (09:28→17:37)
[2023-01-13] MEDS: OMEPRAZOLE 20 MG CAPSULE.DR GT SCH (09:28)
[2023-01-13] MEDS: ALPRAZOLAM 0.5 MG TABLET GT SCH ×2 (09:28→20:37)
[2023-01-13] MEDS: ASCORBIC ACID 500 MG TABLET GT SCH ×2 (09:28→20:37)
[2023-01-13 11:35] VITALS: O2SAT 100
[2023-01-13 19:00] VITALS: BP 101/53; TEMP 98.1; O2SAT 99
[2023-01-13 22:32] VITALS: O2SAT 100
[2023-01-14 00:24] VITALS: BP 102/51; TEMP 99; O2SAT 99
[2023-01-14] MEDS: ALBUTEROL FS 2.5 MG/3 ML VIAL.NEB NEB SCH ×4 (00:55→19:53)
[2023-01-14] MEDS: IPRATROPIUM NEB FS 0.5 MG/2.5 ML AMPUL.NEB NEB SCH ×4 (00:55→19:53)
[2023-01-14] MEDS: BACLOFEN (10 MG) 10 MG TABLET PEG SCH ×3 (05:17→20:25)
[2023-01-14] MEDS: APIXABAN 5 MG TABLET GT SCH ×2 (05:33→18:34)
[2023-01-14 07:19] VITALS: BP 106/58; TEMP 98.2; O2SAT 100
[2023-01-14] MEDS: HYDROGEN PEROXIDE 480 ML BOTTLE TP SCH ×2 (08:11→19:53)
[2023-01-14] MEDS: ALPRAZOLAM 0.5 MG TABLET GT SCH ×2 (09:04→20:25)
[2023-01-14] MEDS: VITAMINS A AND D 56.7 GM TUBE TP SCH ×2 (09:04→20:25)
[2023-01-14] MEDS: PROSTAT (PYXIS) 30 ML UDC GT SCH ×2 (09:04→16:37)
[2023-01-14] MEDS: DOCUSATE SODIUM LIQ 100 MG/10 ML UDC GT SCH ×2 (09:04→20:25)
[2023-01-14] MEDS: ASPIRIN 81 MG TAB.CHEW GT SCH (09:04)
[2023-01-14] MEDS: METOPROLOL TARTRATE 25 MG TABLET GT SCH ×2 (09:04→20:25)
[2023-01-14] MEDS: ASCORBIC ACID 500 MG TABLET GT SCH ×2 (09:04→20:25)
[2023-01-14] MEDS: OMEPRAZOLE 20 MG CAPSULE.DR GT SCH (09:04)
[2023-01-14] MEDS: CHLORHEXIDINE GLUCONATE 15 ML UDC MM SCH ×2 (09:04→20:25)
[2023-01-14 10:06] VITALS: O2SAT 100
[2023-01-14 20:48] VITALS: BP 106/72; TEMP 99; O2SAT 98
[2023-01-14] MEDS: JEVITY 1.2 CAL 1,000 ML BOTTLE GT PRN (22:35)
[2023-01-14 23:13] VITALS: O2SAT 99
[2023-01-15] MEDS: IPRATROPIUM NEB FS 0.5 MG/2.5 ML AMPUL.NEB NEB SCH ×4 (01:09→20:04)
[2023-01-15] MEDS: ALBUTEROL FS 2.5 MG/3 ML VIAL.NEB NEB SCH ×4 (01:09→20:04)
[2023-01-15 01:11] VITALS: BP 128/84; TEMP 99.2; O2SAT 99
[2023-01-15] MEDS: BACLOFEN (10 MG) 10 MG TABLET PEG SCH ×3 (05:11→20:39)
[2023-01-15] MEDS: APIXABAN 5 MG TABLET GT SCH ×2 (05:39→17:33)
[2023-01-15 07:28] VITALS: BP 97/60; TEMP 97.9; O2SAT 99
[2023-01-15] MEDS: HYDROGEN PEROXIDE 480 ML BOTTLE TP SCH ×2 (08:10→20:04)
[2023-01-15] MEDS: OMEPRAZOLE 20 MG CAPSULE.DR GT SCH (09:33)
[2023-01-15] MEDS: METOPROLOL TARTRATE 25 MG TABLET GT SCH ×2 (09:33→20:39)
[2023-01-15] MEDS: ASPIRIN 81 MG TAB.CHEW GT SCH (09:33)
[2023-01-15] MEDS: DOCUSATE SODIUM LIQ 100 MG/10 ML UDC GT SCH ×2 (09:33→20:39)
[2023-01-15] MEDS: PROSTAT (PYXIS) 30 ML UDC GT SCH ×2 (09:33→17:33)
[2023-01-15] MEDS: ALPRAZOLAM 0.5 MG TABLET GT SCH ×2 (09:34→20:39)
[2023-01-15] MEDS: VITAMINS A AND D 56.7 GM TUBE TP SCH ×2 (09:34→20:39)
[2023-01-15] MEDS: ASCORBIC ACID 500 MG TABLET GT SCH ×2 (09:34→20:39)
[2023-01-15] MEDS: CHLORHEXIDINE GLUCONATE 15 ML UDC MM SCH ×2 (09:34→20:39)
[2023-01-15 10:26] VITALS: O2SAT 100
[2023-01-15] MEDS: JEVITY 1.2 CAL 1,000 ML BOTTLE GT PRN (17:33)
[2023-01-15 20:50] VITALS: BP 122/80; TEMP 97.9; O2SAT 100
[2023-01-15 23:52] VITALS: O2SAT 98
[2023-01-16 00:30] VITALS: BP 130/62; TEMP 99.2; O2SAT 99
[2023-01-16] MEDS: ALBUTEROL FS 2.5 MG/3 ML VIAL.NEB NEB SCH ×4 (01:40→19:08)
[2023-01-16] MEDS: IPRATROPIUM NEB FS 0.5 MG/2.5 ML AMPUL.NEB NEB SCH ×4 (01:40→19:08)
[2023-01-16] MEDS: BACLOFEN (10 MG) 10 MG TABLET PEG SCH ×3 (05:02→21:57)
[2023-01-16] MEDS: HYDROGEN PEROXIDE 480 ML BOTTLE TP SCH ×2 (08:20→20:17)
[2023-01-16] MEDS: METOPROLOL TARTRATE 25 MG TABLET GT SCH ×2 (09:21→21:56)
[2023-01-16] MEDS: PROSTAT (PYXIS) 30 ML UDC GT SCH ×2 (09:21→17:35)
[2023-01-16] MEDS: ASCORBIC ACID 500 MG TABLET GT SCH ×2 (09:21→21:56)
[2023-01-16] MEDS: VITAMINS A AND D 56.7 GM TUBE TP SCH ×2 (09:21→21:57)
[2023-01-16] MEDS: DOCUSATE SODIUM LIQ 100 MG/10 ML UDC GT SCH ×2 (09:21→21:53)
[2023-01-16] MEDS: ALPRAZOLAM 0.5 MG TABLET GT SCH ×2 (09:21→21:56)
[2023-01-16] MEDS: CHLORHEXIDINE GLUCONATE 15 ML UDC MM SCH ×2 (09:21→21:57)
[2023-01-16] MEDS: OMEPRAZOLE 20 MG CAPSULE.DR GT SCH (09:21)
[2023-01-16] MEDS: ASPIRIN 81 MG TAB.CHEW GT SCH (09:21)
[2023-01-16 10:07] VITALS: O2SAT 100
[2023-01-16 12:38] VITALS: BP 122/73; TEMP 98.8; O2SAT 100
[2023-01-16] MEDS: JEVITY 1.2 CAL 1,000 ML BOTTLE GT PRN (16:18)
[2023-01-16] MEDS: APIXABAN 5 MG TABLET GT SCH (17:35)
[2023-01-16 20:00] VITALS: BP 125/92; TEMP 97.8; O2SAT 99
[2023-01-17] VITALS: O2SAT 98
[2023-01-17] MEDS: IPRATROPIUM NEB FS 0.5 MG/2.5 ML AMPUL.NEB NEB SCH ×4 (01:37→19:59)
[2023-01-17] MEDS: ALBUTEROL FS 2.5 MG/3 ML VIAL.NEB NEB SCH ×4 (01:37→19:59)
[2023-01-17] MEDS: BACLOFEN (10 MG) 10 MG TABLET PEG SCH ×3 (05:00→20:59)
[2023-01-17] MEDS: APIXABAN 5 MG TABLET GT SCH ×2 (06:39→18:05)
[2023-01-17 07:07] VITALS: BP 126/87; TEMP 99; O2SAT 98
[2023-01-17] MEDS: CHLORHEXIDINE GLUCONATE 15 ML UDC MM SCH ×2 (09:00→20:59)
[2023-01-17] MEDS: ASPIRIN 81 MG TAB.CHEW GT SCH (09:00)
[2023-01-17] MEDS: METOPROLOL TARTRATE 25 MG TABLET GT SCH ×2 (09:00→20:58)
[2023-01-17] MEDS: ASCORBIC ACID 500 MG TABLET GT SCH ×2 (09:00→20:59)
[2023-01-17] MEDS: VITAMINS A AND D 56.7 GM TUBE TP SCH ×2 (09:00→20:59)
[2023-01-17] MEDS: PROSTAT (PYXIS) 30 ML UDC GT SCH ×2 (09:00→16:50)
[2023-01-17] MEDS: OMEPRAZOLE 20 MG CAPSULE.DR GT SCH (09:00)
[2023-01-17] MEDS: DOCUSATE SODIUM LIQ 100 MG/10 ML UDC GT SCH ×2 (09:00→20:58)
[2023-01-17] MEDS: HYDROGEN PEROXIDE 480 ML BOTTLE TP SCH ×2 (09:29→21:00)
[2023-01-17] MEDS: ALPRAZOLAM 0.5 MG TABLET GT SCH ×2 (10:45→21:01)
[2023-01-17 11:43] VITALS: O2SAT 100
[2023-01-17] MEDS: JEVITY 1.2 CAL 1,000 ML BOTTLE GT PRN (16:13)
[2023-01-17 20:00] VITALS: BP 137/98; TEMP 98.3; O2SAT 99
[2023-01-18] MEDS: ALBUTEROL FS 2.5 MG/3 ML VIAL.NEB NEB SCH ×4 (01:30→20:10)
[2023-01-18] MEDS: IPRATROPIUM NEB FS 0.5 MG/2.5 ML AMPUL.NEB NEB SCH ×4 (01:30→20:10)
[2023-01-18 02:41] VITALS: O2SAT 100
[2023-01-18] MEDS: APIXABAN 5 MG TABLET GT SCH ×2 (05:59→18:30)
[2023-01-18] MEDS: BACLOFEN (10 MG) 10 MG TABLET PEG SCH ×3 (05:59→21:33)
[2023-01-18 07:16] VITALS: BP 128/82; TEMP 98.2; O2SAT 98
[2023-01-18] MEDS: DOCUSATE SODIUM LIQ 100 MG/10 ML UDC GT SCH ×2 (09:10→21:33)
[2023-01-18] MEDS: OMEPRAZOLE 20 MG CAPSULE.DR GT SCH (09:10)
[2023-01-18] MEDS: PROSTAT (PYXIS) 30 ML UDC GT SCH ×2 (09:10→17:01)
[2023-01-18] MEDS: ASCORBIC ACID 500 MG TABLET GT SCH ×2 (09:10→21:33)
[2023-01-18] MEDS: METOPROLOL TARTRATE 25 MG TABLET GT SCH ×2 (09:10→21:33)
[2023-01-18] MEDS: CHLORHEXIDINE GLUCONATE 15 ML UDC MM SCH ×2 (09:10→21:33)
[2023-01-18] MEDS: ASPIRIN 81 MG TAB.CHEW GT SCH (09:10)
[2023-01-18] MEDS: VITAMINS A AND D 56.7 GM TUBE TP SCH ×2 (09:10→21:33)
[2023-01-18] MEDS: ALPRAZOLAM 0.5 MG TABLET GT SCH ×2 (09:10→21:33)
[2023-01-18] MEDS: HYDROGEN PEROXIDE 480 ML BOTTLE TP SCH ×2 (09:20→20:30)
[2023-01-18 10:15] VITALS: O2SAT 98
[2023-01-18] MEDS: JEVITY 1.2 CAL 1,000 ML BOTTLE GT PRN (17:02)
[2023-01-19 01:14] VITALS: O2SAT 100
[2023-01-19] MEDS: ALBUTEROL FS 2.5 MG/3 ML VIAL.NEB NEB SCH ×4 (01:48→19:40)
[2023-01-19] MEDS: IPRATROPIUM NEB FS 0.5 MG/2.5 ML AMPUL.NEB NEB SCH ×4 (01:48→19:40)
[2023-01-19] MEDS: BACLOFEN (10 MG) 10 MG TABLET PEG SCH ×3 (05:22→20:59)
[2023-01-19] MEDS: APIXABAN 5 MG TABLET GT SCH ×2 (05:45→18:31)
[2023-01-19 07:31] VITALS: BP 106/78; TEMP 97.7; O2SAT 100
[2023-01-19] MEDS: ASPIRIN 81 MG TAB.CHEW GT SCH (09:02)
[2023-01-19] MEDS: DOCUSATE SODIUM LIQ 100 MG/10 ML UDC GT SCH ×2 (09:02→20:59)
[2023-01-19] MEDS: METOPROLOL TARTRATE 25 MG TABLET GT SCH ×2 (09:03→20:59)
[2023-01-19] MEDS: PROSTAT (PYXIS) 30 ML UDC GT SCH ×2 (09:03→17:03)
[2023-01-19] MEDS: OMEPRAZOLE 20 MG CAPSULE.DR GT SCH (09:03)
[2023-01-19] MEDS: ASCORBIC ACID 500 MG TABLET GT SCH ×2 (09:03→20:59)
[2023-01-19] MEDS: VITAMINS A AND D 56.7 GM TUBE TP SCH ×2 (09:03→20:59)
[2023-01-19] MEDS: ALPRAZOLAM 0.5 MG TABLET GT SCH ×2 (09:03→21:00)
[2023-01-19] MEDS: CHLORHEXIDINE GLUCONATE 15 ML UDC MM SCH ×2 (09:03→20:59)
[2023-01-19] MEDS: HYDROGEN PEROXIDE 480 ML BOTTLE TP SCH ×2 (09:30→19:40)
[2023-01-19 11:20] VITALS: O2SAT 100
[2023-01-19 11:42] VITALS: O2SAT 100
[2023-01-19] MEDS: JEVITY 1.2 CAL 1,000 ML BOTTLE GT PRN (12:22)
[2023-01-19 20:00] VITALS: BP 115/69; TEMP 97.6; O2SAT 100
[2023-01-19 22:44] VITALS: O2SAT 99
[2023-01-20] VITALS: BP 111/52; TEMP 97.4; O2SAT 100
[2023-01-20] MEDS: ALBUTEROL FS 2.5 MG/3 ML VIAL.NEB NEB SCH ×4 (00:53→18:50)
[2023-01-20] MEDS: IPRATROPIUM NEB FS 0.5 MG/2.5 ML AMPUL.NEB NEB SCH ×4 (00:53→18:50)
[2023-01-20] MEDS: BACLOFEN (10 MG) 10 MG TABLET PEG SCH ×3 (05:03→21:54)
[2023-01-20] MEDS: JEVITY 1.2 CAL 1,000 ML BOTTLE GT PRN ×2 (06:00→22:52)
[2023-01-20] MEDS: APIXABAN 5 MG TABLET GT SCH ×2 (06:21→18:32)
[2023-01-20] MEDS: HYDROGEN PEROXIDE 480 ML BOTTLE TP SCH ×2 (08:12→20:15)
[2023-01-20 08:26] VITALS: BP 131/85; TEMP 97.4; O2SAT 100
[2023-01-20] MEDS: PROSTAT (PYXIS) 30 ML UDC GT SCH ×2 (09:06→16:36)
[2023-01-20] MEDS: ASPIRIN 81 MG TAB.CHEW GT SCH (09:06)
[2023-01-20] MEDS: VITAMINS A AND D 56.7 GM TUBE TP SCH ×2 (09:06→21:54)
[2023-01-20] MEDS: ASCORBIC ACID 500 MG TABLET GT SCH ×2 (09:06→21:52)
[2023-01-20] MEDS: OMEPRAZOLE 20 MG CAPSULE.DR GT SCH (09:06)
[2023-01-20] MEDS: CHLORHEXIDINE GLUCONATE 15 ML UDC MM SCH ×2 (09:06→21:52)
[2023-01-20] MEDS: METOPROLOL TARTRATE 25 MG TABLET GT SCH ×2 (09:06→21:52)
[2023-01-20] MEDS: DOCUSATE SODIUM LIQ 100 MG/10 ML UDC GT SCH ×2 (09:06→21:51)
[2023-01-20] MEDS: ALPRAZOLAM 0.5 MG TABLET GT SCH ×2 (09:06→21:55)
[2023-01-20 10:06] VITALS: O2SAT 100
[2023-01-20 20:19] VITALS: BP 103/59; TEMP 98.7; O2SAT 100
[2023-01-20 22:00] VITALS: BP 103/59; TEMP 98.7; O2SAT 97
[2023-01-20 22:04] VITALS: O2SAT 97
[2023-01-21] MEDS: IPRATROPIUM NEB FS 0.5 MG/2.5 ML AMPUL.NEB NEB SCH ×4 (01:19→18:49)
[2023-01-21] MEDS: ALBUTEROL FS 2.5 MG/3 ML VIAL.NEB NEB SCH ×4 (01:19→18:49)
[2023-01-21] MEDS: ACETAMINOPHEN 650 MG/20 ML UDC- SA PATIENTS-PAIN ONLY GT PRN (04:01)
[2023-01-21] MEDS: BACLOFEN (10 MG) 10 MG TABLET PEG SCH ×3 (05:51→21:34)
[2023-01-21] MEDS: APIXABAN 5 MG TABLET GT SCH ×2 (06:37→18:40)
[2023-01-21] MEDS: HYDROGEN PEROXIDE 480 ML BOTTLE TP SCH ×2 (07:54→20:13)
[2023-01-21 08:21] VITALS: BP 109/65; TEMP 98.2; O2SAT 100
[2023-01-21] MEDS: OMEPRAZOLE 20 MG CAPSULE.DR GT SCH (09:26)
[2023-01-21] MEDS: METOPROLOL TARTRATE 25 MG TABLET GT SCH ×2 (09:26→21:33)
[2023-01-21] MEDS: ALPRAZOLAM 0.5 MG TABLET GT SCH ×2 (09:26→21:34)
[2023-01-21] MEDS: PROSTAT (PYXIS) 30 ML UDC GT SCH ×2 (09:26→17:15)
[2023-01-21] MEDS: VITAMINS A AND D 56.7 GM TUBE TP SCH ×2 (09:26→21:34)
[2023-01-21] MEDS: ASPIRIN 81 MG TAB.CHEW GT SCH (09:26)
[2023-01-21] MEDS: DOCUSATE SODIUM LIQ 100 MG/10 ML UDC GT SCH ×2 (09:26→21:33)
[2023-01-21] MEDS: CHLORHEXIDINE GLUCONATE 15 ML UDC MM SCH ×2 (09:26→21:34)
[2023-01-21] MEDS: ASCORBIC ACID 500 MG TABLET GT SCH ×2 (09:26→21:34)
[2023-01-21 11:57] VITALS: O2SAT 100
[2023-01-21 20:04] VITALS: BP 119/66; TEMP 99.2; O2SAT 99
[2023-01-21 22:50] VITALS: O2SAT 99
[2023-01-22] MEDS: JEVITY 1.2 CAL 1,000 ML BOTTLE GT PRN ×3 (00:27→19:11)
[2023-01-22] MEDS: IPRATROPIUM NEB FS 0.5 MG/2.5 ML AMPUL.NEB NEB SCH ×4 (01:04→19:41)
[2023-01-22] MEDS: ALBUTEROL FS 2.5 MG/3 ML VIAL.NEB NEB SCH ×4 (01:04→19:41)
[2023-01-22] MEDS: HYDROCODONE/APAP 5/325MG TABLET GT PRN (04:00)
[2023-01-22] MEDS: BACLOFEN (10 MG) 10 MG TABLET PEG SCH ×3 (05:43→20:48)
[2023-01-22] MEDS: APIXABAN 5 MG TABLET GT SCH ×2 (05:44→18:23)
[2023-01-22 08:13] VITALS: BP 104/53; TEMP 98.2; O2SAT 96
[2023-01-22] MEDS: HYDROGEN PEROXIDE 480 ML BOTTLE TP SCH ×2 (09:09→21:20)
[2023-01-22] MEDS: DOCUSATE SODIUM LIQ 100 MG/10 ML UDC GT SCH ×2 (09:34→20:47)
[2023-01-22] MEDS: ASPIRIN 81 MG TAB.CHEW GT SCH (09:34)
[2023-01-22] MEDS: VITAMINS A AND D 56.7 GM TUBE TP SCH ×2 (09:35→20:48)
[2023-01-22] MEDS: PROSTAT (PYXIS) 30 ML UDC GT SCH ×2 (09:35→17:00)
[2023-01-22] MEDS: ASCORBIC ACID 500 MG TABLET GT SCH ×2 (09:35→20:48)
[2023-01-22] MEDS: ALPRAZOLAM 0.5 MG TABLET GT SCH ×2 (09:35→21:01)
[2023-01-22] MEDS: OMEPRAZOLE 20 MG CAPSULE.DR GT SCH (09:35)
[2023-01-22] MEDS: METOPROLOL TARTRATE 25 MG TABLET GT SCH ×2 (09:35→20:48)
[2023-01-22] MEDS: CHLORHEXIDINE GLUCONATE 15 ML UDC MM SCH ×2 (09:35→20:48)
[2023-01-22 15:10] VITALS: O2SAT 99
[2023-01-22 20:00] VITALS: BP 106/58; TEMP 98.3; O2SAT 99
[2023-01-22 23:50] VITALS: O2SAT 99
[2023-01-23] MEDS: IPRATROPIUM NEB FS 0.5 MG/2.5 ML AMPUL.NEB NEB SCH ×4 (01:53→19:57)
[2023-01-23] MEDS: ALBUTEROL FS 2.5 MG/3 ML VIAL.NEB NEB SCH ×4 (01:53→19:57)
[2023-01-23] MEDS: BACLOFEN (10 MG) 10 MG TABLET PEG SCH ×3 (05:07→21:16)
[2023-01-23] MEDS: APIXABAN 5 MG TABLET GT SCH ×2 (06:32→17:37)
[2023-01-23 07:14] LABS: ALBUMIN 1.7 g/dL (3.4-5.0); BILIRUBIN,TOTAL 1.2 mg/dL (0.2-1.0); CALCIUM, SERUM 8.4 mg/dL (8.5-10.1); CREATININE 0.8 mg/dL (0.6-1.3); POTASSIUM 4.6 mmol/L (3.5-5.1); TOTAL PROTEIN, SERUM 9.4 g/dL (6.4-8.2)
[2023-01-23 08:23] VITALS: BP 79/66; TEMP 98.4; O2SAT 97
[2023-01-23] MEDS: HYDROGEN PEROXIDE 480 ML BOTTLE TP SCH ×2 (08:23→20:30)
[2023-01-23] MEDS: METOPROLOL TARTRATE 25 MG TABLET GT SCH ×2 (09:00→21:16)
[2023-01-23] MEDS: DOCUSATE SODIUM LIQ 100 MG/10 ML UDC GT SCH ×2 (09:32→21:16)
[2023-01-23] MEDS: ASPIRIN 81 MG TAB.CHEW GT SCH (09:32)
[2023-01-23] MEDS: OMEPRAZOLE 20 MG CAPSULE.DR GT SCH (09:33)
[2023-01-23] MEDS: ASCORBIC ACID 500 MG TABLET GT SCH ×2 (09:33→21:16)
[2023-01-23] MEDS: CHLORHEXIDINE GLUCONATE 15 ML UDC MM SCH ×2 (09:33→21:16)
[2023-01-23] MEDS: VITAMINS A AND D 56.7 GM TUBE TP SCH ×2 (09:33→21:16)
[2023-01-23] MEDS: PROSTAT (PYXIS) 30 ML UDC GT SCH ×2 (09:33→17:36)
[2023-01-23] MEDS: ALPRAZOLAM 0.5 MG TABLET GT SCH ×2 (09:33→21:16)
[2023-01-23 11:13] VITALS: O2SAT 96
[2023-01-23] MEDS: JEVITY 1.2 CAL 1,000 ML BOTTLE GT PRN (14:12)
[2023-01-23 20:00] VITALS: BP 115/68; TEMP 99.1; O2SAT 99
[2023-01-23 23:45] VITALS: O2SAT 100
[2023-01-24] MEDS: ALBUTEROL FS 2.5 MG/3 ML VIAL.NEB NEB SCH ×4 (01:31→20:13)
[2023-01-24] MEDS: IPRATROPIUM NEB FS 0.5 MG/2.5 ML AMPUL.NEB NEB SCH ×4 (01:31→20:13)
[2023-01-24] MEDS: BACLOFEN (10 MG) 10 MG TABLET PEG SCH ×3 (05:36→20:27)
[2023-01-24] MEDS: APIXABAN 5 MG TABLET GT SCH ×2 (05:36→18:32)
[2023-01-24] MEDS: JEVITY 1.2 CAL 1,000 ML BOTTLE GT PRN ×2 (05:37→21:24)
[2023-01-24 07:24] VITALS: BP 119/73; TEMP 97.7; O2SAT 100
[2023-01-24] MEDS: DOCUSATE SODIUM LIQ 100 MG/10 ML UDC GT SCH ×2 (09:16→20:26)
[2023-01-24] MEDS: METOPROLOL TARTRATE 25 MG TABLET GT SCH ×2 (09:16→20:27)
[2023-01-24] MEDS: ASPIRIN 81 MG TAB.CHEW GT SCH (09:16)
[2023-01-24] MEDS: ASCORBIC ACID 500 MG TABLET GT SCH ×2 (09:17→20:27)
[2023-01-24] MEDS: OMEPRAZOLE 20 MG CAPSULE.DR GT SCH (09:17)
[2023-01-24] MEDS: CHLORHEXIDINE GLUCONATE 15 ML UDC MM SCH ×2 (09:17→20:27)
[2023-01-24] MEDS: VITAMINS A AND D 56.7 GM TUBE TP SCH ×2 (09:17→20:27)
[2023-01-24] MEDS: ALPRAZOLAM 0.5 MG TABLET GT SCH ×2 (09:17→21:11)
[2023-01-24] MEDS: PROSTAT (PYXIS) 30 ML UDC GT SCH ×2 (09:17→17:11)
[2023-01-24] MEDS: HYDROGEN PEROXIDE 480 ML BOTTLE TP SCH ×2 (09:54→20:14)
[2023-01-24 10:20] VITALS: O2SAT 100
[2023-01-24 19:56] VITALS: BP 105/73; TEMP 98.5; O2SAT 100
[2023-01-24 23:54] VITALS: O2SAT 100
[2023-01-25] MEDS: IPRATROPIUM NEB FS 0.5 MG/2.5 ML AMPUL.NEB NEB SCH ×4 (01:56→19:46)
[2023-01-25] MEDS: ALBUTEROL FS 2.5 MG/3 ML VIAL.NEB NEB SCH ×3 (01:56→19:46)
[2023-01-25] MEDS: BACLOFEN (10 MG) 10 MG TABLET PEG SCH ×3 (05:34→21:07)
[2023-01-25] MEDS: APIXABAN 5 MG TABLET GT SCH ×2 (05:37→17:51)
[2023-01-25 07:46] VITALS: BP 107/75; TEMP 98.8; O2SAT 100
[2023-01-25] MEDS: DOCUSATE SODIUM LIQ 100 MG/10 ML UDC GT SCH ×2 (09:02→21:07)
[2023-01-25] MEDS: VITAMINS A AND D 56.7 GM TUBE TP SCH ×2 (09:02→21:08)
[2023-01-25] MEDS: PROSTAT (PYXIS) 30 ML UDC GT SCH ×2 (09:02→17:10)
[2023-01-25] MEDS: METOPROLOL TARTRATE 25 MG TABLET GT SCH ×2 (09:02→21:07)
[2023-01-25] MEDS: ALPRAZOLAM 0.5 MG TABLET GT SCH ×2 (09:02→21:07)
[2023-01-25] MEDS: CHLORHEXIDINE GLUCONATE 15 ML UDC MM SCH ×2 (09:02→21:07)
[2023-01-25] MEDS: ASCORBIC ACID 500 MG TABLET GT SCH ×2 (09:02→21:07)
[2023-01-25] MEDS: OMEPRAZOLE 20 MG CAPSULE.DR GT SCH (09:02)
[2023-01-25] MEDS: ASPIRIN 81 MG TAB.CHEW GT SCH (09:02)
[2023-01-25] MEDS: HYDROGEN PEROXIDE 480 ML BOTTLE TP SCH ×2 (09:03→19:46)
[2023-01-25 10:11] VITALS: O2SAT 100
[2023-01-25] MEDS: JEVITY 1.2 CAL 1,000 ML BOTTLE GT PRN (15:23)
[2023-01-25 20:06] VITALS: BP 117/64; TEMP 97.9; O2SAT 100
[2023-01-25 23:06] VITALS: O2SAT 100
[2023-01-26] MEDS: IPRATROPIUM NEB FS 0.5 MG/2.5 ML AMPUL.NEB NEB SCH ×4 (01:47→19:34)
[2023-01-26] MEDS: ALBUTEROL FS 2.5 MG/3 ML VIAL.NEB NEB SCH ×4 (01:47→19:34)
[2023-01-26] MEDS: BACLOFEN (10 MG) 10 MG TABLET PEG SCH ×3 (05:35→21:28)
[2023-01-26] MEDS: APIXABAN 5 MG TABLET GT SCH ×2 (06:31→18:35)
[2023-01-26] MEDS: HYDROGEN PEROXIDE 480 ML BOTTLE TP SCH ×2 (07:53→19:34)
[2023-01-26] MEDS: ALPRAZOLAM 0.5 MG TABLET GT SCH ×2 (09:06→21:28)
[2023-01-26] MEDS: PROSTAT (PYXIS) 30 ML UDC GT SCH ×2 (09:06→17:20)
[2023-01-26] MEDS: VITAMINS A AND D 56.7 GM TUBE TP SCH ×2 (09:06→21:28)
[2023-01-26] MEDS: CHLORHEXIDINE GLUCONATE 15 ML UDC MM SCH ×2 (09:06→21:28)
[2023-01-26] MEDS: DOCUSATE SODIUM LIQ 100 MG/10 ML UDC GT SCH ×2 (09:06→21:27)
[2023-01-26] MEDS: ASPIRIN 81 MG TAB.CHEW GT SCH (09:06)
[2023-01-26] MEDS: ASCORBIC ACID 500 MG TABLET GT SCH ×2 (09:06→21:27)
[2023-01-26] MEDS: METOPROLOL TARTRATE 25 MG TABLET GT SCH ×2 (09:06→21:27)
[2023-01-26] MEDS: OMEPRAZOLE 20 MG CAPSULE.DR GT SCH (09:06)
[2023-01-26] MEDS: JEVITY 1.2 CAL 1,000 ML BOTTLE GT PRN (09:14)
[2023-01-26 11:09] VITALS: O2SAT 99
[2023-01-26 20:21] VITALS: BP 100/65; TEMP 97.5; O2SAT 100
[2023-01-26 23:36] VITALS: O2SAT 100
[2023-01-27] MEDS: JEVITY 1.2 CAL 1,000 ML BOTTLE GT PRN (01:00)
[2023-01-27] MEDS: IPRATROPIUM NEB FS 0.5 MG/2.5 ML AMPUL.NEB NEB SCH ×4 (01:37→19:46)
[2023-01-27] MEDS: ALBUTEROL FS 2.5 MG/3 ML VIAL.NEB NEB SCH ×4 (01:37→19:46)
[2023-01-27] MEDS: BACLOFEN (10 MG) 10 MG TABLET PEG SCH ×3 (05:37→21:23)
[2023-01-27] MEDS: APIXABAN 5 MG TABLET GT SCH ×2 (06:49→18:34)
[2023-01-27] MEDS: HYDROGEN PEROXIDE 480 ML BOTTLE TP SCH ×2 (08:20→19:47)
[2023-01-27] MEDS: CHLORHEXIDINE GLUCONATE 15 ML UDC MM SCH ×2 (09:03→21:23)
[2023-01-27] MEDS: ASCORBIC ACID 500 MG TABLET GT SCH ×2 (09:03→21:22)
[2023-01-27] MEDS: METOPROLOL TARTRATE 25 MG TABLET GT SCH ×2 (09:03→21:22)
[2023-01-27] MEDS: OMEPRAZOLE 20 MG CAPSULE.DR GT SCH (09:03)
[2023-01-27] MEDS: ASPIRIN 81 MG TAB.CHEW GT SCH (09:03)
[2023-01-27] MEDS: PROSTAT (PYXIS) 30 ML UDC GT SCH ×2 (09:03→17:10)
[2023-01-27] MEDS: ALPRAZOLAM 0.5 MG TABLET GT SCH ×2 (09:03→21:22)
[2023-01-27] MEDS: DOCUSATE SODIUM LIQ 100 MG/10 ML UDC GT SCH ×2 (09:03→21:22)
[2023-01-27] MEDS: VITAMINS A AND D 56.7 GM TUBE TP SCH ×2 (09:04→21:23)
[2023-01-27 10:06] VITALS: O2SAT 100
[2023-01-27 19:29] VITALS: BP 106/71; TEMP 98.7; O2SAT 100
[2023-01-27 22:40] VITALS: O2SAT 100
[2023-01-28 00:20] VITALS: BP 120/68; TEMP 97.6; O2SAT 98
[2023-01-28] MEDS: ALBUTEROL FS 2.5 MG/3 ML VIAL.NEB NEB SCH ×4 (01:33→19:37)
[2023-01-28] MEDS: IPRATROPIUM NEB FS 0.5 MG/2.5 ML AMPUL.NEB NEB SCH ×4 (01:33→19:37)
[2023-01-28] MEDS: BACLOFEN (10 MG) 10 MG TABLET PEG SCH ×3 (05:33→20:16)
[2023-01-28] MEDS: APIXABAN 5 MG TABLET GT SCH ×2 (05:33→18:20)
[2023-01-28 07:31] VITALS: BP 126/69; TEMP 98.8; O2SAT 100
[2023-01-28] MEDS: DOCUSATE SODIUM LIQ 100 MG/10 ML UDC GT SCH ×2 (08:59→20:15)
[2023-01-28] MEDS: ASPIRIN 81 MG TAB.CHEW GT SCH (08:59)
[2023-01-28] MEDS: OMEPRAZOLE 20 MG CAPSULE.DR GT SCH (09:01)
[2023-01-28] MEDS: METOPROLOL TARTRATE 25 MG TABLET GT SCH ×2 (09:01→20:16)
[2023-01-28] MEDS: CHLORHEXIDINE GLUCONATE 15 ML UDC MM SCH ×2 (09:01→20:16)
[2023-01-28] MEDS: PROSTAT (PYXIS) 30 ML UDC GT SCH ×2 (09:01→16:59)
[2023-01-28] MEDS: ALPRAZOLAM 0.5 MG TABLET GT SCH ×2 (09:01→20:16)
[2023-01-28] MEDS: ASCORBIC ACID 500 MG TABLET GT SCH ×2 (09:01→20:16)
[2023-01-28] MEDS: VITAMINS A AND D 56.7 GM TUBE TP SCH ×2 (09:01→20:16)
[2023-01-28] MEDS: HYDROGEN PEROXIDE 480 ML BOTTLE TP SCH ×2 (09:22→20:06)
[2023-01-28 11:28] VITALS: O2SAT 100
[2023-01-28] MEDS: JEVITY 1.2 CAL 1,000 ML BOTTLE GT PRN (13:17)
[2023-01-28 21:09] VITALS: BP 123/94; TEMP 99; O2SAT 100
[2023-01-28 22:41] VITALS: O2SAT 100
[2023-01-29] MEDS: IPRATROPIUM NEB FS 0.5 MG/2.5 ML AMPUL.NEB NEB SCH ×4 (00:33→20:00)
[2023-01-29] MEDS: ALBUTEROL FS 2.5 MG/3 ML VIAL.NEB NEB SCH ×4 (00:33→20:00)
[2023-01-29] MEDS: BACLOFEN (10 MG) 10 MG TABLET PEG SCH ×3 (05:16→20:31)
[2023-01-29] MEDS: JEVITY 1.2 CAL 1,000 ML BOTTLE GT PRN ×2 (05:17→17:58)
[2023-01-29] MEDS: APIXABAN 5 MG TABLET GT SCH ×2 (05:31→17:33)
[2023-01-29 07:40] VITALS: BP 91/51; TEMP 98.1; O2SAT 98
[2023-01-29] MEDS: HYDROGEN PEROXIDE 480 ML BOTTLE TP SCH ×2 (08:04→20:00)
[2023-01-29] MEDS: DOCUSATE SODIUM LIQ 100 MG/10 ML UDC GT SCH ×2 (08:29→20:30)
[2023-01-29] MEDS: ASPIRIN 81 MG TAB.CHEW GT SCH (08:29)
[2023-01-29] MEDS: CHLORHEXIDINE GLUCONATE 15 ML UDC MM SCH ×2 (08:30→20:31)
[2023-01-29] MEDS: OMEPRAZOLE 20 MG CAPSULE.DR GT SCH (08:30)
[2023-01-29] MEDS: ASCORBIC ACID 500 MG TABLET GT SCH ×2 (08:30→20:31)
[2023-01-29] MEDS: PROSTAT (PYXIS) 30 ML UDC GT SCH ×2 (08:30→17:33)
[2023-01-29] MEDS: METOPROLOL TARTRATE 25 MG TABLET GT SCH ×2 (08:30→20:31)
[2023-01-29] MEDS: VITAMINS A AND D 56.7 GM TUBE TP SCH ×2 (08:30→20:31)
[2023-01-29] MEDS: ALPRAZOLAM 0.5 MG TABLET GT SCH ×2 (08:30→20:31)
[2023-01-29 10:11] VITALS: O2SAT 98
[2023-01-29] MEDS: HYDROCODONE/APAP 5/325MG TABLET GT PRN (15:44)
[2023-01-29 19:37] VITALS: BP 129/68; TEMP 97.5; O2SAT 99
[2023-01-29 22:55] VITALS: O2SAT 100
[2023-01-30] MEDS: IPRATROPIUM NEB FS 0.5 MG/2.5 ML AMPUL.NEB NEB SCH ×4 (01:51→20:08)
[2023-01-30] MEDS: ALBUTEROL FS 2.5 MG/3 ML VIAL.NEB NEB SCH ×4 (01:51→20:08)
[2023-01-30] MEDS: ACETAMINOPHEN 650 MG/20 ML UDC- SA PATIENTS-PAIN ONLY GT PRN (02:48)
[2023-01-30] MEDS: APIXABAN 5 MG TABLET GT SCH ×2 (05:38→19:24)
[2023-01-30] MEDS: BACLOFEN (10 MG) 10 MG TABLET PEG SCH ×3 (05:38→20:52)
[2023-01-30] MEDS: HYDROGEN PEROXIDE 480 ML BOTTLE TP SCH ×2 (08:10→20:08)
[2023-01-30] MEDS: ASCORBIC ACID 500 MG TABLET GT SCH ×2 (08:21→20:50)
[2023-01-30] MEDS: METOPROLOL TARTRATE 25 MG TABLET GT SCH ×2 (08:21→20:50)
[2023-01-30] MEDS: OMEPRAZOLE 20 MG CAPSULE.DR GT SCH (08:21)
[2023-01-30] MEDS: PROSTAT (PYXIS) 30 ML UDC GT SCH ×2 (08:21→16:38)
[2023-01-30] MEDS: ASPIRIN 81 MG TAB.CHEW GT SCH (08:21)
[2023-01-30] MEDS: DOCUSATE SODIUM LIQ 100 MG/10 ML UDC GT SCH ×2 (08:21→20:49)
[2023-01-30] MEDS: ALPRAZOLAM 0.5 MG TABLET GT SCH ×2 (08:22→20:52)
[2023-01-30] MEDS: CHLORHEXIDINE GLUCONATE 15 ML UDC MM SCH ×2 (08:22→20:52)
[2023-01-30] MEDS: VITAMINS A AND D 56.7 GM TUBE TP SCH ×2 (08:22→20:52)
[2023-01-30 10:07] VITALS: O2SAT 100
[2023-01-30 12:26] VITALS: BP 136/87; TEMP 98.8; O2SAT 98
[2023-01-30 19:43] VITALS: BP 110/73; TEMP 98.9; O2SAT 100
[2023-01-30 22:18] VITALS: O2SAT 100
[2023-01-31] MEDS: ALBUTEROL FS 2.5 MG/3 ML VIAL.NEB NEB SCH ×4 (02:18→20:04)
[2023-01-31] MEDS: IPRATROPIUM NEB FS 0.5 MG/2.5 ML AMPUL.NEB NEB SCH ×4 (02:18→20:04)
[2023-01-31] MEDS: BACLOFEN (10 MG) 10 MG TABLET PEG SCH ×3 (05:20→21:08)
[2023-01-31] MEDS: APIXABAN 5 MG TABLET GT SCH ×2 (05:20→17:59)
[2023-01-31] MEDS: JEVITY 1.2 CAL 1,000 ML BOTTLE GT PRN (05:22)
[2023-01-31 07:24] VITALS: BP 108/72; TEMP 97.8; O2SAT 100
[2023-01-31] MEDS: PROSTAT (PYXIS) 30 ML UDC GT SCH ×2 (08:43→16:28)
[2023-01-31] MEDS: OMEPRAZOLE 20 MG CAPSULE.DR GT SCH (08:43)
[2023-01-31] MEDS: ASCORBIC ACID 500 MG TABLET GT SCH ×2 (08:43→21:08)
[2023-01-31] MEDS: DOCUSATE SODIUM LIQ 100 MG/10 ML UDC GT SCH ×2 (08:43→21:07)
[2023-01-31] MEDS: ASPIRIN 81 MG TAB.CHEW GT SCH (08:43)
[2023-01-31] MEDS: METOPROLOL TARTRATE 25 MG TABLET GT SCH ×2 (08:43→21:08)
[2023-01-31] MEDS: ALPRAZOLAM 0.5 MG TABLET GT SCH ×2 (08:45→21:08)
[2023-01-31] MEDS: CHLORHEXIDINE GLUCONATE 15 ML UDC MM SCH ×2 (08:45→21:08)
[2023-01-31] MEDS: VITAMINS A AND D 56.7 GM TUBE TP SCH ×2 (08:45→21:08)
[2023-01-31] MEDS: HYDROGEN PEROXIDE 480 ML BOTTLE TP SCH ×2 (09:49→20:04)
[2023-01-31 12:04] VITALS: O2SAT 99
[2023-01-31 12:05] VITALS: BP 99/69; TEMP 97.6; O2SAT 100
[2023-01-31 20:12] VITALS: BP 107/64; TEMP 98.2; O2SAT 100
[2023-02-01 00:14] VITALS: O2SAT 100
[2023-02-01] MEDS: JEVITY 1.2 CAL 1,000 ML BOTTLE GT PRN ×2 (00:37→17:32)
[2023-02-01] MEDS: IPRATROPIUM NEB FS 0.5 MG/2.5 ML AMPUL.NEB NEB SCH ×4 (02:04→20:11)
[2023-02-01] MEDS: ALBUTEROL FS 2.5 MG/3 ML VIAL.NEB NEB SCH ×4 (02:04→20:11)
[2023-02-01] MEDS: APIXABAN 5 MG TABLET GT SCH ×2 (05:39→17:33)
[2023-02-01] MEDS: BACLOFEN (10 MG) 10 MG TABLET PEG SCH ×3 (05:39→21:03)
[2023-02-01 07:36] VITALS: BP 140/83; TEMP 98.1; O2SAT 100
[2023-02-01] MEDS: METOPROLOL TARTRATE 25 MG TABLET GT SCH ×2 (08:54→21:03)
[2023-02-01] MEDS: PROSTAT (PYXIS) 30 ML UDC GT SCH ×2 (08:54→16:55)
[2023-02-01] MEDS: OMEPRAZOLE 20 MG CAPSULE.DR GT SCH (08:54)
[2023-02-01] MEDS: ASCORBIC ACID 500 MG TABLET GT SCH ×2 (08:54→21:03)
[2023-02-01] MEDS: DOCUSATE SODIUM LIQ 100 MG/10 ML UDC GT SCH ×2 (08:54→21:02)
[2023-02-01] MEDS: ASPIRIN 81 MG TAB.CHEW GT SCH (08:54)
[2023-02-01] MEDS: ALPRAZOLAM 0.5 MG TABLET GT SCH ×2 (08:55→21:03)
[2023-02-01] MEDS: CHLORHEXIDINE GLUCONATE 15 ML UDC MM SCH ×2 (08:55→21:03)
[2023-02-01] MEDS: VITAMINS A AND D 56.7 GM TUBE TP SCH ×2 (08:55→21:03)
[2023-02-01] MEDS: HYDROGEN PEROXIDE 480 ML BOTTLE TP SCH ×2 (09:53→20:11)
[2023-02-01 10:52] VITALS: O2SAT 100
[2023-02-01 19:42] VITALS: BP 106/61; TEMP 99; O2SAT 100
[2023-02-02 01:09] VITALS: O2SAT 99
[2023-02-02] MEDS: ALBUTEROL FS 2.5 MG/3 ML VIAL.NEB NEB SCH ×4 (01:36→19:46)
[2023-02-02] MEDS: IPRATROPIUM NEB FS 0.5 MG/2.5 ML AMPUL.NEB NEB SCH ×4 (01:36→19:46)
[2023-02-02] MEDS: BACLOFEN (10 MG) 10 MG TABLET PEG SCH ×3 (05:45→20:38)
[2023-02-02] MEDS: APIXABAN 5 MG TABLET GT SCH ×2 (05:46→17:30)
[2023-02-02 07:41] VITALS: BP 103/58; TEMP 98.6; O2SAT 100
[2023-02-02] MEDS: ASPIRIN 81 MG TAB.CHEW GT SCH (08:37)
[2023-02-02] MEDS: DOCUSATE SODIUM LIQ 100 MG/10 ML UDC GT SCH ×2 (08:37→20:38)
[2023-02-02] MEDS: ASCORBIC ACID 500 MG TABLET GT SCH ×2 (08:38→20:38)
[2023-02-02] MEDS: METOPROLOL TARTRATE 25 MG TABLET GT SCH ×2 (08:38→20:38)
[2023-02-02] MEDS: PROSTAT (PYXIS) 30 ML UDC GT SCH ×2 (08:38→17:15)
[2023-02-02] MEDS: VITAMINS A AND D 56.7 GM TUBE TP SCH ×2 (08:38→20:38)
[2023-02-02] MEDS: ALPRAZOLAM 0.5 MG TABLET GT SCH ×2 (08:38→20:38)
[2023-02-02] MEDS: CHLORHEXIDINE GLUCONATE 15 ML UDC MM SCH ×2 (08:38→20:38)
[2023-02-02] MEDS: OMEPRAZOLE 20 MG CAPSULE.DR GT SCH (08:38)
[2023-02-02] MEDS: HYDROGEN PEROXIDE 480 ML BOTTLE TP SCH ×2 (09:49→20:21)
[2023-02-02] MEDS: JEVITY 1.2 CAL 1,000 ML BOTTLE GT PRN (10:01)
[2023-02-02 15:39] VITALS: O2SAT 100
[2023-02-02 19:41] VITALS: BP 107/77; TEMP 97.9; O2SAT 100
[2023-02-02 23:23] VITALS: O2SAT 99
[2023-02-03] MEDS: ALBUTEROL FS 2.5 MG/3 ML VIAL.NEB NEB SCH ×4 (01:34→19:15)
[2023-02-03] MEDS: IPRATROPIUM NEB FS 0.5 MG/2.5 ML AMPUL.NEB NEB SCH ×4 (01:34→19:15)
[2023-02-03 01:52] VITALS: BP 129/76; TEMP 98.1; O2SAT 99
[2023-02-03] MEDS: JEVITY 1.2 CAL 1,000 ML BOTTLE GT PRN ×2 (02:08→19:28)
[2023-02-03] MEDS: BACLOFEN (10 MG) 10 MG TABLET PEG SCH ×3 (05:19→20:12)
[2023-02-03] MEDS: APIXABAN 5 MG TABLET GT SCH ×2 (05:35→18:45)
[2023-02-03 08:00] VITALS: BP 123/89; TEMP 98; O2SAT 97
[2023-02-03] MEDS: ASPIRIN 81 MG TAB.CHEW GT SCH (08:19)
[2023-02-03] MEDS: DOCUSATE SODIUM LIQ 100 MG/10 ML UDC GT SCH ×2 (08:24→20:12)
[2023-02-03] MEDS: METOPROLOL TARTRATE 25 MG TABLET GT SCH ×2 (08:25→20:12)
[2023-02-03] MEDS: ASCORBIC ACID 500 MG TABLET GT SCH ×2 (08:26→20:12)
[2023-02-03] MEDS: OMEPRAZOLE 20 MG CAPSULE.DR GT SCH (08:26)
[2023-02-03] MEDS: PROSTAT (PYXIS) 30 ML UDC GT SCH ×2 (08:26→17:06)
[2023-02-03] MEDS: ALPRAZOLAM 0.5 MG TABLET GT SCH ×2 (08:27→20:12)
[2023-02-03] MEDS: CHLORHEXIDINE GLUCONATE 15 ML UDC MM SCH ×2 (08:28→20:12)
[2023-02-03] MEDS: VITAMINS A AND D 56.7 GM TUBE TP SCH ×2 (08:28→20:12)
[2023-02-03] MEDS: ACETAMINOPHEN 650 MG/20 ML UDC- SA PATIENTS-PAIN ONLY GT PRN (08:31)
[2023-02-03] MEDS: HYDROGEN PEROXIDE 480 ML BOTTLE TP SCH ×2 (09:06→20:35)
[2023-02-03 10:12] VITALS: O2SAT 99
[2023-02-03 12:00] VITALS: BP 98/50; TEMP 96.2; O2SAT 99
[2023-02-03 20:42] VITALS: BP 132/65; TEMP 98; O2SAT 99
[2023-02-03 23:15] VITALS: O2SAT 99
[2023-02-04 01:12] VITALS: BP 120/72; TEMP 98.2; O2SAT 100
[2023-02-04] MEDS: IPRATROPIUM NEB FS 0.5 MG/2.5 ML AMPUL.NEB NEB SCH ×4 (01:30→18:49)
[2023-02-04] MEDS: ALBUTEROL FS 2.5 MG/3 ML VIAL.NEB NEB SCH ×4 (01:30→18:49)
[2023-02-04] MEDS: BACLOFEN (10 MG) 10 MG TABLET PEG SCH ×3 (05:19→20:44)
[2023-02-04] MEDS: APIXABAN 5 MG TABLET GT SCH ×2 (05:33→18:38)
[2023-02-04 07:31] VITALS: BP 115/84; TEMP 98.4; O2SAT 100
[2023-02-04] MEDS: ASPIRIN 81 MG TAB.CHEW GT SCH (08:15)
[2023-02-04] MEDS: DOCUSATE SODIUM LIQ 100 MG/10 ML UDC GT SCH ×2 (08:15→20:43)
[2023-02-04] MEDS: OMEPRAZOLE 20 MG CAPSULE.DR GT SCH (08:16)
[2023-02-04] MEDS: METOPROLOL TARTRATE 25 MG TABLET GT SCH ×2 (08:16→20:44)
[2023-02-04] MEDS: ASCORBIC ACID 500 MG TABLET GT SCH ×2 (08:16→20:44)
[2023-02-04] MEDS: PROSTAT (PYXIS) 30 ML UDC GT SCH ×2 (08:16→17:03)
[2023-02-04] MEDS: ALPRAZOLAM 0.5 MG TABLET GT SCH ×2 (08:17→20:44)
[2023-02-04] MEDS: CHLORHEXIDINE GLUCONATE 15 ML UDC MM SCH ×2 (08:18→20:44)
[2023-02-04] MEDS: VITAMINS A AND D 56.7 GM TUBE TP SCH ×2 (08:18→20:44)
[2023-02-04] MEDS: HYDROGEN PEROXIDE 480 ML BOTTLE TP SCH ×2 (09:20→21:00)
[2023-02-04 10:12] VITALS: O2SAT 100
[2023-02-04] MEDS: JEVITY 1.2 CAL 1,000 ML BOTTLE GT PRN (14:43)
[2023-02-04 21:06] VITALS: BP 107/77; TEMP 98.5; O2SAT 100
[2023-02-04 22:54] VITALS: O2SAT 99
[2023-02-05] MEDS: IPRATROPIUM NEB FS 0.5 MG/2.5 ML AMPUL.NEB NEB SCH ×4 (00:46→18:50)
[2023-02-05] MEDS: ALBUTEROL FS 2.5 MG/3 ML VIAL.NEB NEB SCH ×4 (00:46→18:50)
[2023-02-05 01:06] VITALS: BP 101/59; TEMP 98.2; O2SAT 100
[2023-02-05] MEDS: BACLOFEN (10 MG) 10 MG TABLET PEG SCH ×3 (05:41→20:13)
[2023-02-05] MEDS: APIXABAN 5 MG TABLET GT SCH ×2 (05:42→19:02)
[2023-02-05] MEDS: HYDROGEN PEROXIDE 480 ML BOTTLE TP SCH ×2 (08:40→20:04)
[2023-02-05] MEDS: DOCUSATE SODIUM LIQ 100 MG/10 ML UDC GT SCH ×2 (09:25→20:12)
[2023-02-05] MEDS: ASPIRIN 81 MG TAB.CHEW GT SCH (09:25)
[2023-02-05] MEDS: CHLORHEXIDINE GLUCONATE 15 ML UDC MM SCH ×2 (09:27→20:13)
[2023-02-05] MEDS: PROSTAT (PYXIS) 30 ML UDC GT SCH ×2 (09:27→17:29)
[2023-02-05] MEDS: ASCORBIC ACID 500 MG TABLET GT SCH ×2 (09:27→20:13)
[2023-02-05] MEDS: OMEPRAZOLE 20 MG CAPSULE.DR GT SCH (09:27)
[2023-02-05] MEDS: ALPRAZOLAM 0.5 MG TABLET GT SCH ×2 (09:27→20:13)
[2023-02-05] MEDS: METOPROLOL TARTRATE 25 MG TABLET GT SCH ×2 (09:27→20:13)
[2023-02-05] MEDS: VITAMINS A AND D 56.7 GM TUBE TP SCH ×2 (09:28→20:13)
[2023-02-05 11:59] VITALS: O2SAT 100
[2023-02-05 12:37] VITALS: BP 132/81; TEMP 98.3; O2SAT 99
[2023-02-05 20:20] VITALS: BP 135/73; TEMP 99; O2SAT 100
[2023-02-05 22:31] VITALS: O2SAT 99
[2023-02-06] MEDS: JEVITY 1.2 CAL 1,000 ML BOTTLE GT PRN ×2 (00:19→18:14)
[2023-02-06] MEDS: IPRATROPIUM NEB FS 0.5 MG/2.5 ML AMPUL.NEB NEB SCH ×4 (00:38→18:52)
[2023-02-06] MEDS: ALBUTEROL FS 2.5 MG/3 ML VIAL.NEB NEB SCH ×4 (00:38→18:52)
[2023-02-06] MEDS: BACLOFEN (10 MG) 10 MG TABLET PEG SCH ×3 (04:43→21:01)
[2023-02-06] MEDS: APIXABAN 5 MG TABLET GT SCH ×2 (05:24→18:13)
[2023-02-06] MEDS: HYDROGEN PEROXIDE 480 ML BOTTLE TP SCH ×2 (08:16→20:14)
[2023-02-06] MEDS: ASPIRIN 81 MG TAB.CHEW GT SCH (09:12)
[2023-02-06] MEDS: DOCUSATE SODIUM LIQ 100 MG/10 ML UDC GT SCH ×2 (09:12→21:00)
[2023-02-06] MEDS: ALPRAZOLAM 0.5 MG TABLET GT SCH ×2 (09:13→21:01)
[2023-02-06] MEDS: METOPROLOL TARTRATE 25 MG TABLET GT SCH ×2 (09:13→21:01)
[2023-02-06] MEDS: CHLORHEXIDINE GLUCONATE 15 ML UDC MM SCH ×2 (09:13→21:01)
[2023-02-06] MEDS: VITAMINS A AND D 56.7 GM TUBE TP SCH ×2 (09:13→21:01)
[2023-02-06] MEDS: ASCORBIC ACID 500 MG TABLET GT SCH ×2 (09:13→21:01)
[2023-02-06] MEDS: OMEPRAZOLE 20 MG CAPSULE.DR GT SCH (09:13)
[2023-02-06] MEDS: PROSTAT (PYXIS) 30 ML UDC GT SCH ×2 (09:13→17:02)
[2023-02-06 09:42] VITALS: BP 108/76; TEMP 99.5; O2SAT 99
[2023-02-06 10:05] VITALS: O2SAT 100
[2023-02-06 19:38] VITALS: BP 136/86; TEMP 97.9; O2SAT 100
[2023-02-06] MEDS: BACI/NEOM/POLY B OINT PKT 1 UDPKT PACKET TP SCH (21:01)
[2023-02-06 22:04] VITALS: O2SAT 99
[2023-02-07] MEDS: IPRATROPIUM NEB FS 0.5 MG/2.5 ML AMPUL.NEB NEB SCH ×4 (01:29→19:00)
[2023-02-07] MEDS: ALBUTEROL FS 2.5 MG/3 ML VIAL.NEB NEB SCH ×4 (01:29→19:00)
[2023-02-07] MEDS: BACLOFEN (10 MG) 10 MG TABLET PEG SCH ×3 (05:09→20:30)
[2023-02-07] MEDS: APIXABAN 5 MG TABLET GT SCH ×2 (05:59→17:52)
[2023-02-07 08:00] VITALS: BP 125/94; TEMP 99.4; O2SAT 100
[2023-02-07] MEDS: ASPIRIN 81 MG TAB.CHEW GT SCH (08:36)
[2023-02-07] MEDS: DOCUSATE SODIUM LIQ 100 MG/10 ML UDC GT SCH ×2 (08:36→20:29)
[2023-02-07] MEDS: PROSTAT (PYXIS) 30 ML UDC GT SCH ×2 (08:37→16:45)
[2023-02-07] MEDS: METOPROLOL TARTRATE 25 MG TABLET GT SCH ×2 (08:37→20:30)
[2023-02-07] MEDS: ASCORBIC ACID 500 MG TABLET GT SCH ×2 (08:37→20:30)
[2023-02-07] MEDS: ALPRAZOLAM 0.5 MG TABLET GT SCH ×2 (08:37→20:30)
[2023-02-07] MEDS: OMEPRAZOLE 20 MG CAPSULE.DR GT SCH (08:37)
[2023-02-07] MEDS: BACI/NEOM/POLY B OINT PKT 1 UDPKT PACKET TP SCH ×2 (08:38→20:30)
[2023-02-07] MEDS: CHLORHEXIDINE GLUCONATE 15 ML UDC MM SCH ×2 (08:38→20:30)
[2023-02-07] MEDS: VITAMINS A AND D 56.7 GM TUBE TP SCH ×2 (08:38→20:30)
[2023-02-07] MEDS: HYDROGEN PEROXIDE 480 ML BOTTLE TP SCH ×2 (09:26→19:01)
[2023-02-07 10:04] VITALS: O2SAT 100
[2023-02-07] MEDS: JEVITY 1.2 CAL 1,000 ML BOTTLE GT PRN (13:15)
[2023-02-07 19:55] VITALS: BP 120/76; TEMP 99.2; O2SAT 100
[2023-02-07 22:17] VITALS: O2SAT 100
[2023-02-08] MEDS: ALBUTEROL FS 2.5 MG/3 ML VIAL.NEB NEB SCH ×4 (01:30→20:01)
[2023-02-08] MEDS: IPRATROPIUM NEB FS 0.5 MG/2.5 ML AMPUL.NEB NEB SCH ×4 (01:30→20:01)
[2023-02-08] MEDS: JEVITY 1.2 CAL 1,000 ML BOTTLE GT PRN (04:14)
[2023-02-08] MEDS: BACLOFEN (10 MG) 10 MG TABLET PEG SCH ×3 (04:31→20:54)
[2023-02-08] MEDS: APIXABAN 5 MG TABLET GT SCH ×2 (05:13→18:29)
[2023-02-08 07:44] VITALS: BP 126/70; TEMP 98.4; O2SAT 100
[2023-02-08] MEDS: HYDROGEN PEROXIDE 480 ML BOTTLE TP SCH ×2 (08:19→20:03)
[2023-02-08] MEDS: PROSTAT (PYXIS) 30 ML UDC GT SCH ×2 (09:21→17:26)
[2023-02-08] MEDS: ASCORBIC ACID 500 MG TABLET GT SCH ×2 (09:21→20:54)
[2023-02-08] MEDS: BACI/NEOM/POLY B OINT PKT 1 UDPKT PACKET TP SCH ×2 (09:21→20:54)
[2023-02-08] MEDS: METOPROLOL TARTRATE 25 MG TABLET GT SCH ×2 (09:21→21:08)
[2023-02-08] MEDS: CHLORHEXIDINE GLUCONATE 15 ML UDC MM SCH ×2 (09:21→20:54)
[2023-02-08] MEDS: DOCUSATE SODIUM LIQ 100 MG/10 ML UDC GT SCH ×2 (09:21→20:47)
[2023-02-08] MEDS: ASPIRIN 81 MG TAB.CHEW GT SCH (09:21)
[2023-02-08] MEDS: ALPRAZOLAM 0.5 MG TABLET GT SCH ×2 (09:21→20:54)
[2023-02-08] MEDS: OMEPRAZOLE 20 MG CAPSULE.DR GT SCH (09:21)
[2023-02-08] MEDS: VITAMINS A AND D 56.7 GM TUBE TP SCH ×2 (09:22→20:54)
[2023-02-08 10:28] VITALS: O2SAT 100
[2023-02-08] MEDS: LORAZEPAM 1 MG TABLET GT PRN ×2 (15:00→21:50)
[2023-02-08 20:12] VITALS: BP 168/98; TEMP 99.9; O2SAT 95
[2023-02-08] MEDS: ACETAMINOPHEN 650 MG/20 ML UDC- SA PATIENTS-FEVER ONLY GT PRN (20:55)
[2023-02-08 21:08] VITALS: BP 156/102
[2023-02-08 21:44] LABS: BASOPHILS # (AUTO) 0.1 K/uL (0.0-0.2); BASOPHILS % (AUTO) 0.5 % (0.0-2.0); EOSINOPHILS # (AUTO) 0.2 K/uL (0.0-0.7); EOSINOPHILS % (AUTO) 1.7 % (0.0-6.0); HEMATOCRIT 34 % (39-51); HEMOGLOBIN 10.4 g/dL (13.5-17.5); LYMPHOCYTES # (AUTO) 3.1 K/uL (0.8-4.8); LYMPHOCYTES % (AUTO) 23.8 % (20.0-44.0); MEAN CORPUSCULAR HEMOGLOBIN 30 PG (26.0-33.0); MEAN CORPUSCULAR HGB CONC 31 g/dl (31.0-36.0); MEAN CORPUSCULAR VOLUME 97 fL (80-96); MONOCYTES # (AUTO) 1.2 K/uL (0.1-1.30); MONOCYTES % (AUTO) 9.6 % (2.0-12.0); NEUTROPHILS # (AUTO) 8.4 K/uL (1.8-8.9); NEUTROPHILS % (AUTO) 64.4 % (43.0-81.0); PLATELET COUNT (AUTO) 374 K/uL (150-450); RED BLOOD CELL COUNT(AUTO) 3.47 MIL/uL (4.5-6.0); RED CELL DISTRIBUTION WIDTH 19.8 % (11.5-15.0)
[2023-02-08 21:47] LABS: APPEARANCE,URINE CLOUDY (CLEAR); BILIRUBIN,URINE 1+ (NEGATIVE); BLOOD, URINE 2+ Ery/uL (NEGATIVE); COLOR,URINE YELLOW (YELLOW); KETONES,URINE NEGATIVE (NEGATIVE); LEUKOCYTE ESTERASE ,URINE 2+ (NEGATIVE); NITRITE, URINE NEGATIVE (NEGATIVE); PH,URINE 5.5 (5.0-8.0); PROTEIN,URINE 2+ mg/dl (NEGATIVE); UGLUCOSE NEGATIVE (NEGATIVE)
[2023-02-08 21:52] LABS: CALCIUM, SERUM 8.9 mg/dL (8.5-10.1); POTASSIUM 5.2 mmol/L (3.5-5.1)
[2023-02-08 21:55] VITALS: TEMP 101
[2023-02-08 21:58] LABS: BILIRUBIN,TOTAL 1.6 mg/dL (0.2-1.0); TOTAL PROTEIN, SERUM 10.9 g/dL (6.4-8.2)
[2023-02-08 22:17] LABS: ADD URINE CULTURE YES; BACTERIA,URINE Many /HPF (None Seen); RBC,URINE 21-50 /HPF (0-2); WBC,URINE 21-50 /HPF (0-3)
[2023-02-08 22:18] LABS: SQUAMOUS EPITHELIAL CELL,UR Few /HPF (None Seen)
[2023-02-09] MEDS ORDERED: LORA-259 GT (08:42)
[2023-02-09] MEDS ORDERED: METO25TA20 GT (08:42)
[2023-02-09] MEDS ORDERED: NEOM28.37 TP (08:42)
[2023-02-15] MEDS ORDERED: FURO40TA5 PO (12:53)
[2023-02-15] MEDS ORDERED: IPRA0.2S9 NEB (12:53)
[2023-02-15] MEDS ORDERED: CEFT1VIA55 IV (12:53)
[2023-02-15] MEDS ORDERED: Quetiapine Fumarate GT (12:53)
[2023-02-15] MEDS ORDERED: DIGO50SO2 GT (12:53)
[2023-02-15] MEDS ORDERED: ALBU1.25 NEB (12:53)
[2023-02-15] MEDS ORDERED: DOCU50LI NG (12:53)
[2023-02-15] MEDS ORDERED: Nepro GT (12:53)
[2023-02-16] MEDS ORDERED: ALLA266C2 TP (09:03)
[2023-02-16] MEDS ORDERED: ALBU1.257 IH (09:03)
[2023-02-16] MEDS ORDERED: PANT40SU2 GT (09:03)
[2023-02-16] MEDS ORDERED: POLY15DR40 EACHEYE (09:03)
[2023-02-16] MEDS ORDERED: LORA2VIA6 IV (09:03)
[2023-02-16] MEDS ORDERED: ZOLP5TAB8 GT (09:03)
[2023-02-16] MEDS ORDERED: MAG30ORA GT (09:03)
[2023-02-16] MEDS ORDERED: ONDA4VIA52 IV (09:03)
[2023-02-16] MEDS ORDERED: DEXT50DI8 IV (09:03)
[2023-02-19] MEDS ORDERED: TUBERCULIN,PURIF.PROT.DERIV. 5 TU/0.1 ML VIAL ID SCH (09:00)
== END 2023-02-09 19:00 | disposition short-term general hospital (02) | DRG 130 ==
LOC: SA → ICU 08-21 10:22
PROVIDERS: ADMIT Internal Medicine; ATTEND Internal Medicine
PROC: 5A1955Z Respiratory Ventilation, Greater than 96 Consecutive Hours (ICD-10-PCS; principal; 2022-06-19)
PROC: 05H933Z Insertion of Infusion Device into Right Brachial Vein, Percutaneous Approach (ICD-10-PCS; 2022-07-23)
PROC: 05HY33Z Insertion of Infusion Device into Upper Vein, Percutaneous Approach (ICD-10-PCS; 2022-10-02)
DX: J96.21 Acute and chronic respiratory failure with hypoxia (principal); R40.3 Persistent vegetative state; G93.49 Other encephalopathy; G93.1 Anoxic brain damage, not elsewhere classified; D68.59 Other primary thrombophilia; G93.89 Other specified disorders of brain; J44.9 Chronic obstructive pulmonary disease, unspecified; E11.9 Type 2 diabetes mellitus without complications; Z20.822 Contact with and (suspected) exposure to COVID-19; Z99.11 Dependence on respirator [ventilator] status; I69.391 Dysphagia following cerebral infarction; R13.10 Dysphagia, unspecified; I48.91 Unspecified atrial fibrillation; I69.291 Dysphagia following other nontraumatic intracranial hemorrhage; I69.298 Other sequelae of other nontraumatic intracranial hemorrhage
CPT/HCPCS: 31720; 36410; 36415; 36600; 71045-TC; 76700-TC; 80048-TC; 80053-TC; 80202-TC; 81001; 82565-TC; 82803-TC; 82962-TC; 83735-TC; 83880; 84100-TC; 84520-TC; 85025-TC; 85652-TC; 86580-TC; 86706; 86803; 87040-TC; 87086-TC; 87806; 94003-TC; 94760-TC; 94762-TC; 94799-TC; 99082-TC; A4223; A4623; A7526; J1100; J2060; J2185; J2543; J3260; J3370; J7040; J7042; J7060; U0003

== ENCOUNTER 2022-08-21 10:48 | Inpatient (IN) | payer OTHER ==
[~2022-08-21] VITALS: Ht 172.7 cm; Wt 64.9 kg
[2022-08-21] VITALS (55 sets, daily range): BP systolic 73–165; BP diastolic 33–115
[2022-08-21] MEDS ORDERED: IPRA3AMP23 IH (11:01)
[2022-08-21] MEDS ORDERED: BACL20TA GT (11:01)
[2022-08-21] MEDS ORDERED: HYDR1SOL TD (11:01)
[2022-08-21] MEDS ORDERED: PETR113O TP (11:01)
[2022-08-21] MEDS ORDERED: ALPR0.5T8 GT (11:01)
[2022-08-21] MEDS ORDERED: DOCU-141 GT (11:01)
[2022-08-21] MEDS ORDERED: OMEP20CA15 GT (11:01)
[2022-08-21] MEDS ORDERED: LORA-259 GT (11:01)
[2022-08-21] MEDS ORDERED: LANO3.5O3 EACHEYE (11:01)
[2022-08-21] MEDS ORDERED: LACT10SO3 GT (11:01)
[2022-08-21] MEDS ORDERED: LACT-209 GT (11:01)
[2022-08-21] MEDS ORDERED: ASPI-1169 GT (11:01)
[2022-08-21] MEDS ORDERED: AMIN30LI2 GT (11:01)
[2022-08-21] MEDS ORDERED: HYDR-4303 GT (11:01)
[2022-08-21] MEDS ORDERED: BISA10SU11 RC (11:01)
[2022-08-21] MEDS ORDERED: MAGN400O6 GT (11:01)
[2022-08-21] MEDS ORDERED: VANCOMYCIN 1 GM in IV D5W 250 ML IV ONE (11:30)
[2022-08-21 11:54] LABS: BASOPHILS # (AUTO) 0.1 K/uL (0.0-0.2); BASOPHILS % (AUTO) 0.6 % (0.0-2.0); EOSINOPHILS % (AUTO) 0.5 % (0.0-6.0); HEMATOCRIT 29 % (39-51); HEMOGLOBIN 8.8 g/dL (13.5-17.5); LYMPHOCYTES # (AUTO) 0.4 K/uL (0.8-4.8); MEAN CORPUSCULAR HGB CONC 31 g/dl (31.0-36.0); MEAN CORPUSCULAR VOLUME 94 fL (80-96); MONOCYTES # (AUTO) 1.3 K/uL (0.1-1.30); MONOCYTES % (AUTO) 7.5 % (2.0-12.0); NEUTROPHILS # (AUTO) 15.6 K/uL (1.8-8.9); NEUTROPHILS % (AUTO) 89.4 % (43.0-81.0); PLATELET COUNT (AUTO) 451 K/uL (150-450); RED BLOOD CELL COUNT(AUTO) 3.04 MIL/uL (4.5-6.0); WHITE BLOOD COUNT (AUTO) 17.5 K/uL (4.3-11.0)
[2022-08-21 12:07] LABS: ALBUMIN 1.9 g/dL (3.4-5.0); BILIRUBIN,TOTAL 1.9 mg/dL (0.2-1.0); CALCIUM, SERUM 8.3 mg/dL (8.5-10.1); POTASSIUM 5.1 mmol/L (3.5-5.1); TOTAL PROTEIN, SERUM 8.4 g/dL (6.4-8.2)
[2022-08-21] MEDS: PROPOFOL 100 ML IV PRN ×3 (12:30→23:18)
[2022-08-21] MEDS ORDERED: PHENYLEPHRINE 50 MG in IV NS 0.9% 245 ML IV PRN (12:30)
[2022-08-21] MEDS: IV D5/ 0.9% NACL 1,000 ML IV SCH (12:31)
[2022-08-21] MEDS: MEROPENEM 500 MG in IV NS 0.9% 50 ML IV SCH ×2 (13:05→20:57)
[2022-08-21] MEDS: DEXAMETHASONE SOD PHOSPHATE 10 MG/ML VIAL IV SCH (13:06)
[2022-08-21] MEDS ORDERED: ONDANSETRON HCL/PF 4 MG/2 ML VIAL IVP PRN (14:00)
[2022-08-21] MEDS ORDERED: MAGNESIUM HYDROXIDE 30 ML UDC PO PRN (14:00)
[2022-08-21] MEDS ORDERED: Z GUARD REMEDY 4 OZ OINT TP PRN (14:00)
[2022-08-21] MEDS ORDERED: ZOLPIDEM TARTRATE 5 MG TABLET PO PRN (14:00)
[2022-08-21] MEDS ORDERED: MAG HYDROX/AL HYDROX/SIMETH 30 ML UDC PO PRN (14:00)
[2022-08-21] MEDS ORDERED: ACETAMINOPHEN 325 MG TABLET PO PRN (14:00)
[2022-08-21] MEDS: APIXABAN 5 MG TABLET PO SCH ×2 (14:23→18:04)
[2022-08-21] MEDS ORDERED: IPRATROPIUM NEB FS 0.5 MG/2.5 ML AMPUL.NEB NEB PRN (14:30)
[2022-08-21] MEDS ORDERED: BISACODYL SUPP (10 MG) 10 MG/SUPP.RECT SUPP.RECT RC PRN (14:30)
[2022-08-21] MEDS ORDERED: HYDROCODONE/APAP 5/325MG TABLET GT PRN (14:30)
[2022-08-21] MEDS ORDERED: ALBUTEROL FS 2.5 MG/3 ML VIAL.NEB NEB PRN (14:30)
[2022-08-21] MEDS ORDERED: MAGNESIUM HYDROXIDE 30 ML UDC GT PRN (14:30)
[2022-08-21] MEDS ORDERED: LACTULOSE 10 G/15 ML UDC (PYXIS) GT PRN (15:00)
[2022-08-21] MEDS: PROSOURCE / PROSTAT (PYXIS) 30 ML UDC GT SCH (18:03)
[2022-08-21] MEDS: JEVITY 1.2 CAL 1,000 ML BOTTLE GT SCH (18:52)
[2022-08-21 19:25] LABS: BILIRUBIN,URINE NEGATIVE (NEGATIVE); COLOR,URINE YELLOW (YELLOW); LEUKOCYTE ESTERASE ,URINE NEGATIVE (NEGATIVE); NITRITE, URINE NEGATIVE (NEGATIVE); PROTEIN,URINE 1+ mg/dl (NEGATIVE); UGLUCOSE NEGATIVE (NEGATIVE)
[2022-08-21 19:30] LABS: BACTERIA,URINE RARE /HPF (None Seen); HYALINE CASTS, URINE Few /LPF (None Seen); WBC,URINE 0-2 /HPF (0-3)
[2022-08-21 19:31] LABS: COARSE GRANULAR CASTS,URINE Many /LPF (None Seen); MUCUS,URINE Few /LPF (None Seen)
[2022-08-21 19:32] LABS: SQUAMOUS EPITHELIAL CELL,UR 0-2 /HPF (None Seen)
[2022-08-21] MEDS: ASCORBIC ACID 500 MG TABLET GT SCH (20:57)
[2022-08-21] MEDS: CHLORHEXIDINE GLUCONATE 15 ML UDC MM SCH (20:57)
[2022-08-21] MEDS: DOCUSATE SODIUM 100 MG CAPSULE PO SCH (20:57)
[2022-08-21] MEDS: BACLOFEN (10 MG) 10 MG TABLET GT SCH (20:57)
[2022-08-21] MEDS: ALPRAZOLAM 0.5 MG TABLET GT SCH (20:57)
[2022-08-22] VITALS (92 sets, daily range): BP systolic 88–151; BP diastolic 29–106
[2022-08-22] MEDS: VANCOMYCIN 1 GM in IV D5W 250ml IV SCH ×2 (01:38→13:55)
[2022-08-22] MEDS: IV D5/ 0.9% NACL 1,000 ML IV SCH ×2 (01:46→17:50)
[2022-08-22] MEDS: MEROPENEM 500 MG in IV NS 0.9% 50 ML IV SCH ×3 (04:33→20:46)
[2022-08-22] MEDS: BACLOFEN (10 MG) 10 MG TABLET GT SCH ×3 (04:33→20:47)
[2022-08-22 05:20] LABS: BASOPHILS % (AUTO) 0.1 % (0.0-2.0); HEMATOCRIT 29 % (39-51); HEMOGLOBIN 9.1 g/dL (13.5-17.5); LYMPHOCYTES # (AUTO) 0.6 K/uL (0.8-4.8); LYMPHOCYTES % (AUTO) 3.4 % (20.0-44.0); MEAN CORPUSCULAR HGB CONC 31 g/dl (31.0-36.0); MEAN CORPUSCULAR VOLUME 93 fL (80-96); MONOCYTES # (AUTO) 0.4 K/uL (0.1-1.30); MONOCYTES % (AUTO) 2.4 % (2.0-12.0); NEUTROPHILS # (AUTO) 17.2 K/uL (1.8-8.9); NEUTROPHILS % (AUTO) 94.1 % (43.0-81.0); PLATELET COUNT (AUTO) 448 K/uL (150-450); RED BLOOD CELL COUNT(AUTO) 3.16 MIL/uL (4.5-6.0); WHITE BLOOD COUNT (AUTO) 18.2 K/uL (4.3-11.0)
[2022-08-22 05:27] LABS: CALCIUM, SERUM 8.3 mg/dL (8.5-10.1); CREATININE 0.9 mg/dL (0.6-1.3); POTASSIUM 4.2 mmol/L (3.5-5.1)
[2022-08-22 05:32] LABS: MAGNESIUM 2.4 mg/dL (1.8-2.4); PHOSPHORUS 4.6 mg/dL (2.5-4.9)
[2022-08-22] MEDS: PROPOFOL 100 ML IV PRN ×2 (05:40→15:17)
[2022-08-22 06:38] LABS: THYROID STIMULATING HORMONE 0.253 uIU/mL (0.358-3.74)
[2022-08-22 07:17] LABS: ABG BASE EXCESS -2.2 mmol/L; ABG PCO2 37.3 mmHg (35.0-45.0); ABG PH 7.395 (7.350-7.450); ABG PO2 79.3 mmHg (75.0-100.0); COHb 0.3 % (0.5-1.5); MetHb 0.4 % (0.0-1.5); O2Hb 93.8 % (94.0-97.0); SITE, ABG Right Brachial
[2022-08-22 07:17] LABS: ABG BASE EXCESS -0.8 mmol/L; ABG OXYGEN SATURATION 99.2 % (92.0-98.5); ABG PCO2 43.3 mmHg (35.0-45.0); ABG PH 7.371 (7.350-7.450); ABG PO2 158.1 mmHg (75.0-100.0); AaDO2 222.1 mmHg; COHb 1.3 % (0.5-1.5); MetHb 0.3 % (0.0-1.5); O2Hb 97.6 % (94.0-97.0); PEEP,BG 10 cm H2O; SITE, ABG Right Radial; VT, ABG 475 mL
[2022-08-22] MEDS: HYDROCORTISONE SOD SUCCINATE 100 MG/2 ML VIAL IV SCH ×3 (08:11→20:46)
[2022-08-22] MEDS: DEXAMETHASONE SOD PHOSPHATE 10 MG/ML VIAL IV SCH (08:16)
[2022-08-22] MEDS: ASCORBIC ACID 500 MG TABLET GT SCH ×2 (08:17→20:47)
[2022-08-22] MEDS: DOCUSATE SODIUM 100 MG CAPSULE PO SCH ×2 (08:18→20:46)
[2022-08-22] MEDS: CHLORHEXIDINE GLUCONATE 15 ML UDC MM SCH ×2 (08:18→20:46)
[2022-08-22] MEDS: APIXABAN 5 MG TABLET PO SCH ×2 (08:18→16:42)
[2022-08-22] MEDS: PANTOPRAZOLE 40 MG VIAL IV SCH (08:18)
[2022-08-22] MEDS: PROSOURCE / PROSTAT (PYXIS) 30 ML UDC GT SCH ×2 (08:23→16:42)
[2022-08-22] MEDS: ALPRAZOLAM 0.5 MG TABLET GT SCH ×2 (08:24→20:46)
[2022-08-22] MEDS ORDERED: ASPIRIN 81 MG TAB.CHEW GT SCH (09:00)
[2022-08-22] MEDS: LORAZEPAM INJ 2 MG/ML VIAL IV PRN (11:33)
[2022-08-23] VITALS (45 sets, daily range): BP systolic 87–140; BP diastolic 56–90
[2022-08-23] MEDS: JEVITY 1.2 CAL 1,000 ML BOTTLE GT SCH (00:37)
[2022-08-23] MEDS: PROPOFOL 100 ML IV PRN (04:02)
[2022-08-23 04:06] LABS: HEMATOCRIT 27 % (39-51); HEMOGLOBIN 8.3 g/dL (13.5-17.5); LYMPHOCYTES # (AUTO) 0.3 K/uL (0.8-4.8); LYMPHOCYTES % (AUTO) 2.7 % (20.0-44.0); MEAN CORPUSCULAR HGB CONC 31 g/dl (31.0-36.0); MEAN CORPUSCULAR VOLUME 93 fL (80-96); MONOCYTES # (AUTO) 0.6 K/uL (0.1-1.30); NEUTROPHILS # (AUTO) 11.3 K/uL (1.8-8.9); NEUTROPHILS % (AUTO) 92.3 % (43.0-81.0); PLATELET COUNT (AUTO) 355 K/uL (150-450); RED BLOOD CELL COUNT(AUTO) 2.89 MIL/uL (4.5-6.0); WHITE BLOOD COUNT (AUTO) 12.2 K/uL (4.3-11.0)
[2022-08-23 04:38] LABS: CREATININE 0.9 mg/dL (0.6-1.3); MAGNESIUM 2.1 mg/dL (1.8-2.4); PHOSPHORUS 3.5 mg/dL (2.5-4.9); POTASSIUM 4.5 mmol/L (3.5-5.1)
[2022-08-23] MEDS: HYDROCORTISONE SOD SUCCINATE 100 MG/2 ML VIAL IV SCH (04:41)
[2022-08-23] MEDS: BACLOFEN (10 MG) 10 MG TABLET GT SCH ×3 (04:41→20:33)
[2022-08-23] MEDS: MEROPENEM 500 MG in IV NS 0.9% 50 ML IV SCH ×3 (04:41→20:34)
[2022-08-23] MEDS: IV D5/ 0.9% NACL 1,000 ML IV SCH ×2 (04:42→16:30)
[2022-08-23] MEDS: PANTOPRAZOLE 40 MG VIAL IV SCH (08:47)
[2022-08-23] MEDS: CHLORHEXIDINE GLUCONATE 15 ML UDC MM SCH ×2 (08:47→20:33)
[2022-08-23] MEDS: DEXAMETHASONE SOD PHOSPHATE 10 MG/ML VIAL IV SCH (08:47)
[2022-08-23] MEDS: ASCORBIC ACID 500 MG TABLET GT SCH ×2 (08:47→20:33)
[2022-08-23] MEDS: DOCUSATE SODIUM 100 MG CAPSULE PO SCH ×2 (08:47→20:33)
[2022-08-23] MEDS: PROSOURCE / PROSTAT (PYXIS) 30 ML UDC GT SCH ×2 (08:47→16:24)
[2022-08-23] MEDS: APIXABAN 5 MG TABLET PO SCH ×2 (08:48→16:24)
[2022-08-23] MEDS: ALPRAZOLAM 1 MG TABLET GT SCH ×2 (08:50→20:33)
[2022-08-23] MEDS: LORAZEPAM INJ 2 MG/ML VIAL IV PRN (16:24)
[2022-08-24] VITALS (23 sets, daily range): BP systolic 100–146; BP diastolic 66–106
[2022-08-24 05:20] LABS: BASOPHILS % (AUTO) 0.3 % (0.0-2.0); HEMATOCRIT 29 % (39-51); HEMOGLOBIN 8.8 g/dL (13.5-17.5); LYMPHOCYTES # (AUTO) 0.3 K/uL (0.8-4.8); MEAN CORPUSCULAR HGB CONC 31 g/dl (31.0-36.0); MEAN CORPUSCULAR VOLUME 94 fL (80-96); MONOCYTES # (AUTO) 0.4 K/uL (0.1-1.30); MONOCYTES % (AUTO) 5.3 % (2.0-12.0); NEUTROPHILS # (AUTO) 7.4 K/uL (1.8-8.9); NEUTROPHILS % (AUTO) 90.4 % (43.0-81.0); PLATELET COUNT (AUTO) 343 K/uL (150-450); RED BLOOD CELL COUNT(AUTO) 3.03 MIL/uL (4.5-6.0); WHITE BLOOD COUNT (AUTO) 8.2 K/uL (4.3-11.0)
[2022-08-24 05:39] LABS: CALCIUM, SERUM 7.8 mg/dL (8.5-10.1); CREATININE 0.8 mg/dL (0.6-1.3); MAGNESIUM 2.1 mg/dL (1.8-2.4); PHOSPHORUS 3.1 mg/dL (2.5-4.9); POTASSIUM 4.5 mmol/L (3.5-5.1)
[2022-08-24] MEDS: BACLOFEN (10 MG) 10 MG TABLET GT SCH ×2 (06:02→13:18)
[2022-08-24] MEDS: MEROPENEM 500 MG in IV NS 0.9% 50 ML IV SCH ×2 (06:02→13:18)
[2022-08-24] MEDS: JEVITY 1.2 CAL 1,000 ML BOTTLE GT SCH (06:03)
[2022-08-24] MEDS: IV D5/ 0.9% NACL 1,000 ML IV SCH (06:11)
[2022-08-24] MEDS: PROSOURCE / PROSTAT (PYXIS) 30 ML UDC GT SCH (08:53)
[2022-08-24] MEDS: ALPRAZOLAM 1 MG TABLET GT SCH (08:54)
[2022-08-24] MEDS: ASCORBIC ACID 500 MG TABLET GT SCH (08:54)
[2022-08-24] MEDS: CHLORHEXIDINE GLUCONATE 15 ML UDC MM SCH (08:54)
[2022-08-24] MEDS: PANTOPRAZOLE 40 MG VIAL IV SCH (08:54)
[2022-08-24] MEDS: DEXAMETHASONE SOD PHOSPHATE 10 MG/ML VIAL IV SCH (08:55)
[2022-08-24] MEDS: DOCUSATE SODIUM 100 MG CAPSULE PO SCH (08:55)
[2022-08-24] MEDS: APIXABAN 5 MG TABLET PO SCH (08:57)
[2022-08-24] MEDS ORDERED: MERO500V23 IV (11:21)
[2022-08-25] MEDS ORDERED: PANTOPRAZOLE 40 MG TABLET.DR PO SCH (07:30)
== END 2022-08-24 16:02 | DRG 720 ==
LOC: ICU 10:48
PROVIDERS: ADMIT Nurse Practitioner Acute Care; ATTEND Internal Medicine
PROC: 5A1945Z Respiratory Ventilation, 24-96 Consecutive Hours (ICD-10-PCS; principal; 2022-08-21)
PROC: 02HV33Z Insertion of Infusion Device into Superior Vena Cava, Percutaneous Approach (ICD-10-PCS; 2022-08-21)
PROC: B548ZZA Ultrasonography of Superior Vena Cava, Guidance (ICD-10-PCS; 2022-08-21)
DX: A41.9 Sepsis, unspecified organism (principal); J96.21 Acute and chronic respiratory failure with hypoxia; R65.21 Severe sepsis with septic shock; G93.41 Metabolic encephalopathy; J15.6 Pneumonia due to other Gram-negative bacteria; J44.0 Chronic obstructive pulmonary disease with (acute) lower respiratory infection; J90 Pleural effusion, not elsewhere classified; I27.20 Pulmonary hypertension, unspecified; Z93.0 Tracheostomy status; Z99.11 Dependence on respirator [ventilator] status; D63.8 Anemia in other chronic diseases classified elsewhere; D75.839 Thrombocytosis, unspecified; K21.9 Gastro-esophageal reflux disease without esophagitis; R13.10 Dysphagia, unspecified; Z20.822 Contact with and (suspected) exposure to COVID-19; Z79.01 Long term (current) use of anticoagulants; Z86.16 Personal history of COVID-19; Z86.73 Personal history of transient ischemic attack (TIA), and cerebral infarction without residual deficits; Z87.01 Personal history of pneumonia (recurrent); Z93.1 Gastrostomy status; E86.0 Dehydration; R74.01 Elevation of levels of liver transaminase levels; I48.20 Chronic atrial fibrillation, unspecified; D50.9 Iron deficiency anemia, unspecified; E87.1 Hypo-osmolality and hyponatremia
CPT/HCPCS: 31720; 36415; 36600; 71045-TC; 80048-TC; 80053-TC; 80061-TC; 81001; 82533; 82728-TC; 82803-TC; 83540-TC; 83605-TC; 83735-TC; 84100-TC; 84443-TC; 84478-TC; 85025-TC; 87040-TC; 87081-TC; 87086-TC; 93307-TC; 93970-TC; 94002-TC; 94003-TC; 94760-TC; 94799-TC; A4223; A6253; C9113; G0378; J1100; J1720; J2060; J2185; J2370; J3370; J3490; J7042; J7050; J7060

== ENCOUNTER 2023-02-08 22:25 | Inpatient (IN) | payer OTHER ==
[~2023-02-08] VITALS: Ht 147.3 cm; Wt 77.1 kg
[~2023-02-08 22:25] MED LIST changes: +ALPR0.5T8 GT; +AMIN30LI2 GT; +ASPI-1169 GT; +BACL20TA GT; +BISA10SU11 RC; -DILT30TA14 GT; +DOCU-141 GT; -FURO10VI IV; -GLYC2TAB21 GT; +HYDR-4303 GT; +HYDR1SOL TD; -HYDR500C2 GT; -INSU100V27 SQ; -INSU100V7 SQ; +LACT-209 GT; +LACT10SO3 GT; +LANO3.5O3 EACHEYE; -LANS30CA56 GT; -LORA2VIA11 IV; +MAGN400O6 GT; +MERO500V23 IV; -METO25TA20 GT; -MINE3.5O26 EACHEYE; +OMEP20CA15 GT; +PETR113O TP; -SODI473S8 TD; -ZINC56.713 TP; -[UNRECOGNIZED DRUG - CODE] GT
[2023-02-08] MEDS ORDERED: VANCOMYCIN 1 GM /D5W 250 ML PB IV ONE (22:41)
[2023-02-08] MEDS ORDERED: CEFEPIME 1 GM VIAL ONE (22:41)
[2023-02-08] MEDS ORDERED: IBUPROFEN 400 MG TABLET GT ONE (23:00)
[2023-02-08] MEDS ORDERED: IV NS 0.9% 1,000 ML BAG IV ONE (23:00)
[2023-02-08] MEDS ORDERED: CEFEPIME 1 GM in IV D5W 50 ML IV ONE (23:00)
[2023-02-08] MEDS ORDERED: VANCOMYCIN 1 GM in IV D5W 250 ML IV ONE (23:00)
[2023-02-08] MEDS ORDERED: IBUPROFEN 400 MG TABLET ONE (23:03)
[2023-02-08] MEDS ORDERED: ZOLPIDEM TARTRATE 5 MG TABLET PO PRN (23:30)
[2023-02-08] MEDS ORDERED: ENOXAPARIN SODIUM 40 MG/0.4 ML DISP.SYRIN SQ SCH (23:30)
[2023-02-08] MEDS ORDERED: MAGNESIUM HYDROXIDE 30 ML UDC PO PRN (23:30)
[2023-02-08] MEDS ORDERED: ONDANSETRON HCL/PF 4 MG/2 ML VIAL IVP PRN (23:30)
[2023-02-08] MEDS ORDERED: ACETAMINOPHEN 325 MG TABLET PO PRN (23:30)
[2023-02-08] MEDS ORDERED: MAG HYDROX/AL HYDROX/SIMETH 30 ML UDC PO PRN (23:30)
[2023-02-08] MEDS ORDERED: Z GUARD REMEDY 4 OZ OINT TP PRN (23:30)
[2023-02-09] VITALS (42 sets, daily range): BP systolic 72–171; BP diastolic 56–146; TEMP 97.1–98.3; O2SAT 90–100
[2023-02-09] MEDS: IV NS 0.9% 1,000 ML IV PRN ×2 (01:25→14:04)
[2023-02-09] MEDS ORDERED: IV NS 0.9% 500 ML IV ONE ×4 (03:30→05:00)
[2023-02-09] MEDS ORDERED: NOREPINEPHRINE 8MG/250ML RTU 250 ML IV ONE (05:01)
[2023-02-09] MEDS: NOREPINEPHRINE 8 MG in IV NS 0.9% 242 ML IV PRN ×3 (05:10→06:00)
[2023-02-09 05:55] LABS: BASOPHILS # (AUTO) 0.1 K/uL (0.0-0.2); BASOPHILS % (AUTO) 0.5 % (0.0-2.0); EOSINOPHILS % (AUTO) 0.3 % (0.0-6.0); HEMATOCRIT 27 % (39-51); HEMOGLOBIN 8.2 g/dL (13.5-17.5); LYMPHOCYTES % (AUTO) 14.6 % (20.0-44.0); MEAN CORPUSCULAR HEMOGLOBIN 30 PG (26.0-33.0); MEAN CORPUSCULAR HGB CONC 31 g/dl (31.0-36.0); MEAN CORPUSCULAR VOLUME 97 fL (80-96); MONOCYTES # (AUTO) 1.4 K/uL (0.1-1.30); MONOCYTES % (AUTO) 10.1 % (2.0-12.0); NEUTROPHILS % (AUTO) 74.5 % (43.0-81.0); PLATELET COUNT (AUTO) 302 K/uL (150-450); RED BLOOD CELL COUNT(AUTO) 2.76 MIL/uL (4.5-6.0); RED CELL DISTRIBUTION WIDTH 18.8 % (11.5-15.0); WHITE BLOOD COUNT (AUTO) 13.4 K/uL (4.3-11.0)
[2023-02-09 06:16] LABS: CALCIUM, SERUM 7.8 mg/dL (8.5-10.1); CREATININE 0.9 mg/dL (0.6-1.3); PHOSPHORUS 5.3 mg/dL (2.5-4.9); POTASSIUM 5.8 mmol/L (3.5-5.1)
[2023-02-09] MEDS ORDERED: PANTOPRAZOLE 40 MG TABLET.DR PO SCH (07:30)
[2023-02-09] MEDS ORDERED: NOREPINEPHRINE 8 MG in IV NS 0.9% 242 ML IV PRN (08:30)
[2023-02-09] MEDS ORDERED: PHARMACY TO CHANGE PO MEDS TO GT/NG XX PRN (08:30)
[2023-02-09] MEDS ORDERED: LORA-259 GT (08:42)
[2023-02-09] MEDS ORDERED: METO25TA20 GT (08:42)
[2023-02-09] MEDS ORDERED: NEOM28.37 TP (08:42)
[2023-02-09] MEDS ORDERED: MAGNESIUM HYDROXIDE 30 ML UDC GT PRN ×2 (08:49→15:00)
[2023-02-09] MEDS ORDERED: MAG HYDROX/AL HYDROX/SIMETH 30 ML UDC GT PRN (08:49)
[2023-02-09] MEDS ORDERED: ZOLPIDEM TARTRATE 5 MG TABLET GT PRN (08:50)
[2023-02-09] MEDS ORDERED: ACETAMINOPHEN 650 MG/20.3 ML UDC GT PRN ×2 (09:00→15:00)
[2023-02-09] MEDS ORDERED: PANTOPRAZOLE 40 MG/PACK PACK NG SCH (10:00)
[2023-02-09] MEDS: CEFEPIME 2 GM in IV D5W 100 ML IV SCH ×2 (11:03→23:00)
[2023-02-09] MEDS: VANCOMYCIN 1 GM in IV D5W 250ml IV SCH ×2 (11:38→23:01)
[2023-02-09] MEDS ORDERED: LORAZEPAM INJ 2 MG/ML VIAL IV PRN (15:00)
[2023-02-09] MEDS ORDERED: BISACODYL SUPP (10 MG) 10 MG/SUPP.RECT SUPP.RECT RC PRN (15:00)
[2023-02-09] MEDS ORDERED: LANOLIN/MIN OIL/PETROLAT,WHT 3.5 GM TUBE EACHEYE PRN (15:00)
[2023-02-09] MEDS ORDERED: HYDROCODONE/APAP 5/325MG TABLET GT PRN (15:00)
[2023-02-09] MEDS ORDERED: LORAZEPAM 1 MG TABLET GT PRN (15:00)
[2023-02-09] MEDS ORDERED: JEVITY 1.2 CAL 1,000 ML BOTTLE GT SCH (15:00)
[2023-02-09] MEDS ORDERED: Medication Not On Formulary EA (Ipratropium/Albuterol Sulfate (Duoneb 2.5-0.5 Mg/3 Ml So IH PRN (15:00)
[2023-02-09] MEDS: PHENYLEPHRINE 50 MG in IV NS 0.9% 245 ML IV PRN ×2 (15:41→21:33)
[2023-02-09] MEDS ORDERED: LACTULOSE 10 G/15 ML UDC (PYXIS) GT PRN (16:00)
[2023-02-09] MEDS ORDERED: ALBUTEROL FS 2.5 MG/0.5 ML VIAL.NEB NEB PRN (16:00)
[2023-02-09] MEDS ORDERED: IPRATROPIUM NEB FS 0.5 MG/2.5 ML AMPUL.NEB NEB PRN (16:00)
[2023-02-09] MEDS: PROSOURCE / PROSTAT (PYXIS) 30 ML UDC GT SCH (17:43)
[2023-02-09] MEDS ORDERED: Medication Not On Formulary EA (Ipratropium/Albuterol Sulfate (Duoneb 2.5-0.5 Mg/3 Ml So IH SCH (18:00)
[2023-02-09] MEDS ORDERED: POLYVINYL ALCOHOL 15 ML BOTTLE EACHEYE PRN (18:30)
[2023-02-09] MEDS ORDERED: AMIODARONE 150 MG in IV D5W 100 ML IV ONE (19:00)
[2023-02-09] MEDS: AMIODARONE 450 MG in IV D5W 241 ML IV PRN (19:04)
[2023-02-09] MEDS ORDERED: DEXTROSE 50%-WATER 50 ML DISP.SYRIN IVP STA (19:47)
[2023-02-09] MEDS ORDERED: DEXTROSE 50%-WATER 50 ML DISP.SYRIN ONE (19:47)
[2023-02-09] MEDS: IPRATROPIUM NEB FS 0.5 MG/2.5 ML AMPUL.NEB NEB SCH (19:51)
[2023-02-09] MEDS: ALBUTEROL FS 2.5 MG/0.5 ML VIAL.NEB NEB SCH (19:51)
[2023-02-09] MEDS ORDERED: DEXTROSE 50%-WATER 50 ML DISP.SYRIN IVP PRN (20:00)
[2023-02-09] MEDS: LORAZEPAM INJ 2 MG/ML VIAL IV PRN ×2 (20:03→23:39)
[2023-02-09] MEDS ORDERED: METOPROLOL TARTRATE 25 MG TABLET GT SCH (21:00)
[2023-02-09] MEDS: CHLORHEXIDINE GLUCONATE 15 ML UDC MM SCH (21:04)
[2023-02-09] MEDS: DOCUSATE SODIUM 100 MG CAPSULE PO SCH (21:04)
[2023-02-09] MEDS: ALPRAZOLAM 0.5 MG TABLET GT SCH (21:05)
[2023-02-09] MEDS: APIXABAN 5 MG TABLET GT SCH (21:05)
[2023-02-09] MEDS: BACLOFEN (10 MG) 10 MG TABLET GT SCH (21:05)
[2023-02-09] MEDS: ASCORBIC ACID 500 MG TABLET GT SCH (21:05)
[2023-02-09] MEDS ORDERED: Sodium Chloride 154 MEQ in IV 10% DEXTROSE 1,000 ML IV SCH (21:30)
[2023-02-09] MEDS: BLOOD SUGAR DIAGNOSTIC 1 EACH STRIP IN SCH (23:30)
[2023-02-09] MEDS ORDERED: IV D5/ 0.9% NACL 1,000 ML IV SCH (23:30)
[2023-02-10] VITALS (92 sets, daily range): BP systolic 74–155; BP diastolic 47–103; TEMP 97.7–98.5; O2SAT 90–100
[2023-02-10] MEDS: AMIODARONE 450 MG in IV D5W 241 ML IV PRN ×3 (00:06→17:44)
[2023-02-10] MEDS: IPRATROPIUM NEB FS 0.5 MG/2.5 ML AMPUL.NEB NEB SCH ×4 (01:21→19:59)
[2023-02-10] MEDS: ALBUTEROL FS 2.5 MG/0.5 ML VIAL.NEB NEB SCH ×4 (01:21→19:59)
[2023-02-10] MEDS: BLOOD SUGAR DIAGNOSTIC 1 EACH STRIP IN SCH ×6 (01:23→21:12)
[2023-02-10] MEDS: LORAZEPAM INJ 2 MG/ML VIAL IV PRN (03:39)
[2023-02-10] MEDS: PROPOFOL 100 ML IV PRN ×4 (04:32→23:25)
[2023-02-10 04:34] LABS: BASOPHILS % (AUTO) 0.2 % (0.0-2.0); EOSINOPHILS % (AUTO) 0.1 % (0.0-6.0); HEMATOCRIT 31 % (39-51); HEMOGLOBIN 9.4 g/dL (13.5-17.5); LYMPHOCYTES % (AUTO) 5.2 % (20.0-44.0); MEAN CORPUSCULAR HEMOGLOBIN 30 PG (26.0-33.0); MEAN CORPUSCULAR HGB CONC 30 g/dl (31.0-36.0); MEAN CORPUSCULAR VOLUME 100 fL (80-96); MONOCYTES # (AUTO) 1.5 K/uL (0.1-1.30); MONOCYTES % (AUTO) 8.1 % (2.0-12.0); NEUTROPHILS # (AUTO) 16.2 K/uL (1.8-8.9); NEUTROPHILS % (AUTO) 86.4 % (43.0-81.0); PLATELET COUNT (AUTO) 367 K/uL (150-450); RED BLOOD CELL COUNT(AUTO) 3.11 MIL/uL (4.5-6.0); RED CELL DISTRIBUTION WIDTH 19.4 % (11.5-15.0); WHITE BLOOD COUNT (AUTO) 18.8 K/uL (4.3-11.0)
[2023-02-10 04:43] LABS: ABG BASE EXCESS -15.7 mmol/L; ABG OXYGEN SATURATION 88.8 % (92.0-98.5); ABG PCO2 34.3 mmHg (35.0-45.0); ABG PH 7.157 (7.350-7.450); ABG TOTAL HEMOGLOBIN 10.6 G/dL (13.5-18.0); AaDO2 315.1 mmHg; COHb 1.1 % (0.5-1.5); O2Hb 87.8 % (94.0-97.0); SITE, ABG Right Brachial
[2023-02-10 04:52] LABS: CALCIUM, SERUM 7.9 mg/dL (8.5-10.1); CREATININE 1.3 mg/dL (0.6-1.3); MAGNESIUM 2.2 mg/dL (1.8-2.4); PHOSPHORUS 6.7 mg/dL (2.5-4.9)
[2023-02-10] MEDS: BACLOFEN (10 MG) 10 MG TABLET GT SCH ×3 (04:59→21:11)
[2023-02-10] MEDS ORDERED: SODIUM BICARBONATE SYR 50 MEQ/50 ML DISP.SYRIN IV ONE (05:00)
[2023-02-10] MEDS: PHENYLEPHRINE 50 MG in IV NS 0.9% 245 ML IV PRN ×3 (05:35→22:47)
[2023-02-10] MEDS ORDERED: SODIUM POLYSTYRENE SULFONATE 15 G/60 ML BOTTLE PO ONE ×2 (06:00→08:00)
[2023-02-10] MEDS ORDERED: PANTOPRAZOLE 40 MG/PACK PACK NG SCH (07:30)
[2023-02-10] MEDS: APIXABAN 5 MG TABLET GT SCH ×2 (08:10→21:12)
[2023-02-10] MEDS: ALPRAZOLAM 0.5 MG TABLET GT SCH ×2 (08:10→21:11)
[2023-02-10] MEDS: ASPIRIN 81 MG TAB.CHEW GT SCH (08:11)
[2023-02-10] MEDS: CHLORHEXIDINE GLUCONATE 15 ML UDC MM SCH ×2 (08:11→21:11)
[2023-02-10] MEDS: DOCUSATE SODIUM 100 MG CAPSULE PO SCH ×2 (08:11→21:11)
[2023-02-10] MEDS: PANTOPRAZOLE 40 MG/PACK PACK GT SCH (08:11)
[2023-02-10] MEDS: ASCORBIC ACID 500 MG TABLET GT SCH ×2 (08:11→21:11)
[2023-02-10] MEDS: PROSOURCE / PROSTAT (PYXIS) 30 ML UDC GT SCH ×2 (08:12→16:18)
[2023-02-10] MEDS: Sodium Bicarbonate 100 MEQ in IV D5/0.45 NACL 1,000 ML IV SCH ×2 (08:48→23:20)
[2023-02-10] MEDS ORDERED: MIDAZOLAM HCL 100 MG in IV NS 0.9% 80 ML IV PRN (10:00)
[2023-02-10] MEDS: CEFEPIME 2 GM in IV D5W 100 ML IV SCH ×2 (10:24→23:26)
[2023-02-10] MEDS: NEPRO 1,000 ML BOTTLE GT PRN (10:34)
[2023-02-10 11:33] LABS: LACTIC ACID 4.7 mmol/L (0.4-2.0)
[2023-02-10 11:51] LABS: ABG BASE EXCESS -5.2 mmol/L; ABG OXYGEN SATURATION 97.3 % (92.0-98.5); ABG PCO2 33.3 mmHg (35.0-45.0); ABG TOTAL HEMOGLOBIN 9.1 G/dL (13.5-18.0); AaDO2 360.3 mmHg; COHb 0.7 % (0.5-1.5); MetHb 0.3 % (0.0-1.5); O2Hb 96.3 % (94.0-97.0); SITE, ABG Left Radial; VENT MODE, BG AC 25 525
[2023-02-10 13:24] LABS: CALCIUM, SERUM 7.7 mg/dL (8.5-10.1); CREATININE 1.4 mg/dL (0.6-1.3); POTASSIUM 4.1 mmol/L (3.5-5.1)
[2023-02-10 13:31] LABS: BILIRUBIN,DIRECT 1.8 mg/dL (0.0-0.2); BILIRUBIN,TOTAL 2.3 mg/dL (0.2-1.0)
[2023-02-10 13:35] LABS: LACTIC ACID REFLEX 4.2 mmol/L (0.4-1.9)
[2023-02-10 16:29] LABS: APPEARANCE,URINE CLOUDY (CLEAR); BILIRUBIN,URINE NEGATIVE (NEGATIVE); BLOOD, URINE 3+ Ery/uL (NEGATIVE); COLOR,URINE YELLOW (YELLOW); KETONES,URINE TRACE mg/dL (NEGATIVE); LEUKOCYTE ESTERASE ,URINE 1+ (NEGATIVE); NITRITE, URINE NEGATIVE (NEGATIVE); PH,URINE 5.5 (5.0-8.0); PROTEIN,URINE 2+ mg/dl (NEGATIVE); UGLUCOSE NEGATIVE (NEGATIVE); UROBILINOGEN,URINE 0.2 EU/dL (0.2)
[2023-02-10 16:55] LABS: RBC,URINE 51-80 /HPF (0-2)
[2023-02-10 16:56] LABS: ADD URINE CULTURE YES; BACTERIA,URINE 3+ /HPF (None Seen); SQUAMOUS EPITHELIAL CELL,UR 0-2 /HPF (None Seen)
[2023-02-10] MEDS: FUROSEMIDE 20 MG/2 ML VIAL IV SCH (19:54)
[2023-02-11] VITALS (81 sets, daily range): BP systolic 84–133; BP diastolic 55–99; TEMP 98.2–98.7; O2SAT 87–100
[2023-02-11] MEDS: BLOOD SUGAR DIAGNOSTIC 1 EACH STRIP IN SCH ×6 (01:23→21:33)
[2023-02-11] MEDS: ALBUTEROL FS 2.5 MG/0.5 ML VIAL.NEB NEB SCH ×4 (01:24→19:52)
[2023-02-11] MEDS: IPRATROPIUM NEB FS 0.5 MG/2.5 ML AMPUL.NEB NEB SCH ×4 (01:24→19:52)
[2023-02-11 04:55] LABS: BASOPHILS # (AUTO) 0.1 K/uL (0.0-0.2); BASOPHILS % (AUTO) 0.8 % (0.0-2.0); EOSINOPHILS # (AUTO) 0.2 K/uL (0.0-0.7); EOSINOPHILS % (AUTO) 1.4 % (0.0-6.0); HEMATOCRIT 28 % (39-51); HEMOGLOBIN 8.6 g/dL (13.5-17.5); LYMPHOCYTES # (AUTO) 0.6 K/uL (0.8-4.8); LYMPHOCYTES % (AUTO) 4.5 % (20.0-44.0); MEAN CORPUSCULAR HEMOGLOBIN 30 PG (26.0-33.0); MEAN CORPUSCULAR HGB CONC 31 g/dl (31.0-36.0); MEAN CORPUSCULAR VOLUME 96 fL (80-96); MONOCYTES # (AUTO) 1.4 K/uL (0.1-1.30); MONOCYTES % (AUTO) 10.3 % (2.0-12.0); NEUTROPHILS # (AUTO) 10.8 K/uL (1.8-8.9); PLATELET COUNT (AUTO) 300 K/uL (150-450); RED BLOOD CELL COUNT(AUTO) 2.91 MIL/uL (4.5-6.0); RED CELL DISTRIBUTION WIDTH 18.8 % (11.5-15.0); WHITE BLOOD COUNT (AUTO) 13.1 K/uL (4.3-11.0)
[2023-02-11 05:19] LABS: CALCIUM, SERUM 7.8 mg/dL (8.5-10.1); CREATININE 1.2 mg/dL (0.6-1.3); POTASSIUM 2.9 mmol/L (3.5-5.1)
[2023-02-11] MEDS: BACLOFEN (10 MG) 10 MG TABLET GT SCH ×3 (05:21→20:34)
[2023-02-11] MEDS: PROPOFOL 100 ML IV PRN ×3 (08:00→23:01)
[2023-02-11] MEDS: POTASSIUM CHLORIDE 20 MEQ POWDER PACKET GT SCH ×3 (08:10→10:20)
[2023-02-11] MEDS: ASCORBIC ACID 500 MG TABLET GT SCH ×2 (08:10→20:34)
[2023-02-11] MEDS: FUROSEMIDE 20 MG/2 ML VIAL IV SCH ×2 (08:11→17:18)
[2023-02-11] MEDS: ALPRAZOLAM 0.5 MG TABLET GT SCH ×2 (08:11→20:34)
[2023-02-11] MEDS: APIXABAN 5 MG TABLET GT SCH ×2 (08:11→20:35)
[2023-02-11] MEDS: ASPIRIN 81 MG TAB.CHEW GT SCH (08:11)
[2023-02-11] MEDS: PANTOPRAZOLE 40 MG/PACK PACK GT SCH (08:11)
[2023-02-11] MEDS: CHLORHEXIDINE GLUCONATE 15 ML UDC MM SCH ×2 (08:11→20:34)
[2023-02-11] MEDS: PROSOURCE / PROSTAT (PYXIS) 30 ML UDC GT SCH ×2 (08:13→16:24)
[2023-02-11] MEDS: DOCUSATE SODIUM 100 MG CAPSULE PO SCH ×2 (08:16→20:34)
[2023-02-11] MEDS: PHENYLEPHRINE 50 MG in IV NS 0.9% 245 ML IV PRN ×2 (08:57→20:00)
[2023-02-11] MEDS ORDERED: IV 1/2NS 1000 ML 1,000 ML IV PRN (09:00)
[2023-02-11] MEDS: AMIODARONE 450 MG in IV D5W 241 ML IV PRN (09:20)
[2023-02-11] MEDS: NEPRO 1,000 ML BOTTLE GT PRN (10:23)
[2023-02-11] MEDS: VANCOMYCIN 1.25 GM in IV D5W 250 ML IV SCH (11:34)
[2023-02-11] MEDS: MEROPENEM 1 G in IV NS 0.9% 100 ML IV SCH ×2 (13:13→20:00)
[2023-02-11 15:14] LABS: ABG BASE EXCESS 3.2 mmol/L; ABG OXYGEN SATURATION 92.7 % (92.0-98.5); ABG PH 7.524 (7.350-7.450); ABG PO2 65.3 mmHg (75.0-100.0); ABG TOTAL HEMOGLOBIN 10.1 G/dL (13.5-18.0); AaDO2 255.2 mmHg; COHb 0.7 % (0.5-1.5); MetHb 0.1 % (0.0-1.5); PEEP,BG 0 cm H2O; VT, ABG 525 mL
[2023-02-11] MEDS: ALBUMIN 25% 25 GM in PREMIX 1 EA IV SCH ×2 (16:03→21:00)
[2023-02-12] VITALS (47 sets, daily range): BP systolic 89–127; BP diastolic 54–102; TEMP 97.6–98.7; O2SAT 93–100
[2023-02-12] MEDS: ALBUTEROL FS 2.5 MG/0.5 ML VIAL.NEB NEB SCH ×4 (01:09→19:55)
[2023-02-12] MEDS: IPRATROPIUM NEB FS 0.5 MG/2.5 ML AMPUL.NEB NEB SCH ×4 (01:09→19:55)
[2023-02-12] MEDS: BLOOD SUGAR DIAGNOSTIC 1 EACH STRIP IN SCH ×4 (01:47→17:35)
[2023-02-12 04:59] LABS: BASOPHILS # (AUTO) 0.1 K/uL (0.0-0.2); BASOPHILS % (AUTO) 0.6 % (0.0-2.0); EOSINOPHILS # (AUTO) 0.3 K/uL (0.0-0.7); EOSINOPHILS % (AUTO) 2.4 % (0.0-6.0); HEMATOCRIT 28 % (39-51); HEMOGLOBIN 8.3 g/dL (13.5-17.5); LYMPHOCYTES # (AUTO) 0.5 K/uL (0.8-4.8); LYMPHOCYTES % (AUTO) 4.2 % (20.0-44.0); MEAN CORPUSCULAR HEMOGLOBIN 29 PG (26.0-33.0); MEAN CORPUSCULAR HGB CONC 30 g/dl (31.0-36.0); MEAN CORPUSCULAR VOLUME 98 fL (80-96); MONOCYTES # (AUTO) 0.9 K/uL (0.1-1.30); MONOCYTES % (AUTO) 7.7 % (2.0-12.0); NEUTROPHILS # (AUTO) 9.9 K/uL (1.8-8.9); NEUTROPHILS % (AUTO) 85.1 % (43.0-81.0); PLATELET COUNT (AUTO) 249 K/uL (150-450); RED BLOOD CELL COUNT(AUTO) 2.86 MIL/uL (4.5-6.0); RED CELL DISTRIBUTION WIDTH 19.8 % (11.5-15.0); WHITE BLOOD COUNT (AUTO) 11.7 K/uL (4.3-11.0)
[2023-02-12] MEDS: NEPRO 1,000 ML BOTTLE GT PRN (05:09)
[2023-02-12 05:11] LABS: CALCIUM, SERUM 8.6 mg/dL (8.5-10.1); CREATININE 1.1 mg/dL (0.6-1.3); POTASSIUM 3.4 mmol/L (3.5-5.1)
[2023-02-12] MEDS: BACLOFEN (10 MG) 10 MG TABLET GT SCH ×3 (05:11→21:07)
[2023-02-12] MEDS: MEROPENEM 1 G in IV NS 0.9% 100 ML IV SCH ×3 (05:11→21:00)
[2023-02-12] MEDS: PHENYLEPHRINE 50 MG in IV NS 0.9% 245 ML IV PRN ×2 (06:19→17:35)
[2023-02-12] MEDS: PROPOFOL 100 ML IV PRN ×3 (06:19→22:00)
[2023-02-12] MEDS: CHLORHEXIDINE GLUCONATE 15 ML UDC MM SCH ×2 (09:45→21:07)
[2023-02-12] MEDS: FUROSEMIDE 20 MG/2 ML VIAL IV SCH ×2 (09:52→17:35)
[2023-02-12] MEDS: PANTOPRAZOLE 40 MG/PACK PACK GT SCH (09:52)
[2023-02-12] MEDS: ALPRAZOLAM 0.5 MG TABLET GT SCH ×2 (09:53→21:07)
[2023-02-12] MEDS: DOCUSATE SODIUM LIQ 100 MG/10 ML UDC NG SCH ×2 (09:53→21:07)
[2023-02-12] MEDS: ASPIRIN 81 MG TAB.CHEW GT SCH (09:53)
[2023-02-12] MEDS: PROSOURCE / PROSTAT (PYXIS) 30 ML UDC GT SCH ×2 (09:53→17:33)
[2023-02-12] MEDS: ASCORBIC ACID 500 MG TABLET GT SCH ×2 (09:53→21:07)
[2023-02-12] MEDS: APIXABAN 5 MG TABLET GT SCH ×2 (09:56→21:13)
[2023-02-12] MEDS: VANCOMYCIN 1.25 GM in IV D5W 250 ML IV SCH (10:00)
[2023-02-12] MEDS: QUETIAPINE FUMARATE 25 MG TABLET GT SCH ×2 (11:17→17:33)
[2023-02-12] MEDS: POTASSIUM CL. PREMIX PERIPHER. 50 ML IV SCH ×2 (11:18→12:33)
[2023-02-12] MEDS ORDERED: DEXTROSE 50%-WATER 50 ML DISP.SYRIN IVP PRN (13:00)
[2023-02-12] MEDS: ALBUTEROL HALF STRENGTH 1.25 MG/3 ML VIAL.NEB NEB SCH ×2 (13:41→19:30)
[2023-02-12] MEDS: AMIODARONE 450 MG in IV D5W 241 ML IV PRN ×3 (16:00)
[2023-02-12] MEDS ORDERED: VANCOMYCIN 1 GM in IV D5W 250 ML IV SCH (23:00)
[2023-02-13] VITALS (31 sets, daily range): BP systolic 90–118; BP diastolic 51–92; TEMP 97.8–98.2; O2SAT 96–100
[2023-02-13] MEDS: BLOOD SUGAR DIAGNOSTIC 1 EACH STRIP IN SCH ×5 (00:16→23:00)
[2023-02-13] MEDS: IPRATROPIUM NEB FS 0.5 MG/2.5 ML AMPUL.NEB NEB SCH ×4 (01:26→19:54)
[2023-02-13] MEDS: ALBUTEROL FS 2.5 MG/0.5 ML VIAL.NEB NEB SCH ×3 (01:26→13:16)
[2023-02-13] MEDS: ALBUTEROL HALF STRENGTH 1.25 MG/3 ML VIAL.NEB NEB SCH ×4 (01:28→19:54)
[2023-02-13] MEDS: NEPRO 1,000 ML BOTTLE GT PRN (03:41)
[2023-02-13] MEDS: PROPOFOL 100 ML IV PRN (05:00)
[2023-02-13] MEDS: PHENYLEPHRINE 50 MG in IV NS 0.9% 245 ML IV PRN (05:00)
[2023-02-13] MEDS: AMIODARONE 450 MG in IV D5W 241 ML IV PRN (05:00)
[2023-02-13 05:16] LABS: BASOPHILS % (AUTO) 0.4 % (0.0-2.0); EOSINOPHILS # (AUTO) 0.4 K/uL (0.0-0.7); EOSINOPHILS % (AUTO) 3.9 % (0.0-6.0); HEMATOCRIT 28 % (39-51); HEMOGLOBIN 8.9 g/dL (13.5-17.5); LYMPHOCYTES # (AUTO) 0.8 K/uL (0.8-4.8); LYMPHOCYTES % (AUTO) 7.6 % (20.0-44.0); MEAN CORPUSCULAR HEMOGLOBIN 31 PG (26.0-33.0); MEAN CORPUSCULAR HGB CONC 32 g/dl (31.0-36.0); MEAN CORPUSCULAR VOLUME 97 fL (80-96); MONOCYTES % (AUTO) 9.3 % (2.0-12.0); NEUTROPHILS # (AUTO) 8.6 K/uL (1.8-8.9); NEUTROPHILS % (AUTO) 78.8 % (43.0-81.0); PLATELET COUNT (AUTO) 254 K/uL (150-450); RED CELL DISTRIBUTION WIDTH 19.5 % (11.5-15.0); WHITE BLOOD COUNT (AUTO) 10.9 K/uL (4.3-11.0)
[2023-02-13 05:25] LABS: CALCIUM, SERUM 9.3 mg/dL (8.5-10.1); POTASSIUM 3.7 mmol/L (3.5-5.1)
[2023-02-13] MEDS: MEROPENEM 1 G in IV NS 0.9% 100 ML IV SCH (05:48)
[2023-02-13] MEDS: BACLOFEN (10 MG) 10 MG TABLET GT SCH ×3 (05:48→20:35)
[2023-02-13] MEDS: PANTOPRAZOLE 40 MG/PACK PACK GT SCH (08:42)
[2023-02-13] MEDS: DOCUSATE SODIUM LIQ 100 MG/10 ML UDC NG SCH ×2 (08:42→20:36)
[2023-02-13] MEDS: QUETIAPINE FUMARATE 25 MG TABLET GT SCH ×2 (08:42→20:36)
[2023-02-13] MEDS: ASCORBIC ACID 500 MG TABLET GT SCH ×2 (08:42→20:35)
[2023-02-13] MEDS: CHLORHEXIDINE GLUCONATE 15 ML UDC MM SCH ×2 (08:42→20:36)
[2023-02-13] MEDS: ALPRAZOLAM 0.5 MG TABLET GT SCH ×2 (08:42→20:35)
[2023-02-13] MEDS: ASPIRIN 81 MG TAB.CHEW GT SCH (08:42)
[2023-02-13] MEDS: PROSOURCE / PROSTAT (PYXIS) 30 ML UDC GT SCH ×2 (08:43→17:38)
[2023-02-13] MEDS: FUROSEMIDE 20 MG/2 ML VIAL IV SCH (08:43)
[2023-02-13] MEDS: APIXABAN 5 MG TABLET GT SCH ×2 (08:44→20:36)
[2023-02-13] MEDS ORDERED: CEFTAZIDIME 2 G in IV D5W 100 ML IV SCH (11:00)
[2023-02-13] MEDS: CEFTAZIDIME 1 G in IV D5W 50 ML IV SCH ×2 (12:58→23:00)
[2023-02-13] MEDS ORDERED: DIGOXIN INJ 0.5 MG/2 ML AMPUL IV ONE ×2 (14:30→20:00)
[2023-02-13 14:54] LABS: ABG BASE EXCESS 9.6 mmol/L; ABG OXYGEN SATURATION 95.1 % (92.0-98.5); ABG PCO2 47.3 mmHg (35.0-45.0); ABG PH 7.478 (7.350-7.450); ABG PO2 75.9 mmHg (75.0-100.0); ABG TOTAL HEMOGLOBIN 10.3 G/dL (13.5-18.0); AaDO2 154.9 mmHg; COHb 0.7 % (0.5-1.5); O2Hb 94.4 % (94.0-97.0); SITE, ABG Right Brachial
[2023-02-13] MEDS ORDERED: QUETIAPINE FUMARATE 25 MG TABLET GT SCH (17:00)
[2023-02-13] MEDS ORDERED: FUROSEMIDE 20 MG/2 ML VIAL IV SCH (21:00)
[2023-02-14] VITALS (24 sets, daily range): BP systolic 90–122; BP diastolic 54–76; TEMP 98–98.3; O2SAT 96–100
[2023-02-14] MEDS: PROPOFOL 100 ML IV PRN (00:18)
[2023-02-14] MEDS: ALBUTEROL HALF STRENGTH 1.25 MG/3 ML VIAL.NEB NEB SCH ×4 (02:12→19:54)
[2023-02-14] MEDS: IPRATROPIUM NEB FS 0.5 MG/2.5 ML AMPUL.NEB NEB SCH ×4 (02:12→19:54)
[2023-02-14] MEDS: NEPRO 1,000 ML BOTTLE GT PRN (03:34)
[2023-02-14 03:56] LABS: CALCIUM, SERUM 9.1 mg/dL (8.5-10.1); POTASSIUM 3.8 mmol/L (3.5-5.1)
[2023-02-14 04:18] LABS: BASOPHILS % (AUTO) 0.5 % (0.0-2.0); EOSINOPHILS # (AUTO) 0.2 K/uL (0.0-0.7); EOSINOPHILS % (AUTO) 3.2 % (0.0-6.0); HEMATOCRIT 28 % (39-51); HEMOGLOBIN 8.8 g/dL (13.5-17.5); LYMPHOCYTES # (AUTO) 0.7 K/uL (0.8-4.8); LYMPHOCYTES % (AUTO) 9.5 % (20.0-44.0); MEAN CORPUSCULAR HEMOGLOBIN 30 PG (26.0-33.0); MEAN CORPUSCULAR HGB CONC 31 g/dl (31.0-36.0); MEAN CORPUSCULAR VOLUME 97 fL (80-96); MONOCYTES # (AUTO) 0.6 K/uL (0.1-1.30); MONOCYTES % (AUTO) 7.2 % (2.0-12.0); NEUTROPHILS # (AUTO) 6.2 K/uL (1.8-8.9); NEUTROPHILS % (AUTO) 79.6 % (43.0-81.0); PLATELET COUNT (AUTO) 226 K/uL (150-450); RED BLOOD CELL COUNT(AUTO) 2.89 MIL/uL (4.5-6.0); RED CELL DISTRIBUTION WIDTH 19.9 % (11.5-15.0); WHITE BLOOD COUNT (AUTO) 7.8 K/uL (4.3-11.0)
[2023-02-14] MEDS: BLOOD SUGAR DIAGNOSTIC 1 EACH STRIP IN SCH ×4 (05:10→23:57)
[2023-02-14] MEDS: BACLOFEN (10 MG) 10 MG TABLET GT SCH ×3 (05:10→21:16)
[2023-02-14] MEDS: ASCORBIC ACID 500 MG TABLET GT SCH ×2 (08:32→21:16)
[2023-02-14] MEDS: QUETIAPINE FUMARATE 25 MG TABLET GT SCH ×2 (08:32→21:16)
[2023-02-14] MEDS: ALPRAZOLAM 0.5 MG TABLET GT SCH ×2 (08:32→21:16)
[2023-02-14] MEDS: PANTOPRAZOLE 40 MG/PACK PACK GT SCH (08:32)
[2023-02-14] MEDS: FUROSEMIDE 40 MG TABLET PO SCH (08:32)
[2023-02-14] MEDS: ASPIRIN 81 MG TAB.CHEW GT SCH (08:32)
[2023-02-14] MEDS: PROSOURCE / PROSTAT (PYXIS) 30 ML UDC GT SCH ×2 (08:34→17:24)
[2023-02-14] MEDS: APIXABAN 5 MG TABLET GT SCH ×2 (08:34→21:17)
[2023-02-14] MEDS: DOCUSATE SODIUM LIQ 100 MG/10 ML UDC NG SCH ×2 (08:35→21:18)
[2023-02-14] MEDS: CHLORHEXIDINE GLUCONATE 15 ML UDC MM SCH ×2 (08:35→21:16)
[2023-02-14] MEDS: CEFTAZIDIME 1 G in IV D5W 50 ML IV SCH ×2 (12:20→22:32)
[2023-02-14] MEDS: DIGOXIN INJ 0.5 MG/2 ML AMPUL IV SCH (12:29)
[2023-02-15] VITALS (13 sets, daily range): BP systolic 91–117; BP diastolic 53–76; TEMP 98–98.8; O2SAT 95–99
[2023-02-15] MEDS: ALBUTEROL HALF STRENGTH 1.25 MG/3 ML VIAL.NEB NEB SCH ×3 (01:52→13:24)
[2023-02-15] MEDS: IPRATROPIUM NEB FS 0.5 MG/2.5 ML AMPUL.NEB NEB SCH ×3 (01:52→13:24)
[2023-02-15] MEDS: NEPRO 1,000 ML BOTTLE GT PRN (03:57)
[2023-02-15 04:33] LABS: BASOPHILS % (AUTO) 0.4 % (0.0-2.0); EOSINOPHILS # (AUTO) 0.3 K/uL (0.0-0.7); EOSINOPHILS % (AUTO) 3.3 % (0.0-6.0); HEMATOCRIT 29 % (39-51); HEMOGLOBIN 9.3 g/dL (13.5-17.5); LYMPHOCYTES % (AUTO) 11.5 % (20.0-44.0); MEAN CORPUSCULAR HEMOGLOBIN 30 PG (26.0-33.0); MEAN CORPUSCULAR HGB CONC 32 g/dl (31.0-36.0); MEAN CORPUSCULAR VOLUME 95 fL (80-96); MONOCYTES # (AUTO) 0.6 K/uL (0.1-1.30); MONOCYTES % (AUTO) 6.6 % (2.0-12.0); NEUTROPHILS # (AUTO) 6.6 K/uL (1.8-8.9); NEUTROPHILS % (AUTO) 78.2 % (43.0-81.0); PLATELET COUNT (AUTO) 240 K/uL (150-450); RED BLOOD CELL COUNT(AUTO) 3.05 MIL/uL (4.5-6.0); RED CELL DISTRIBUTION WIDTH 19.6 % (11.5-15.0); WHITE BLOOD COUNT (AUTO) 8.4 K/uL (4.3-11.0)
[2023-02-15 04:44] LABS: CALCIUM, SERUM 9.1 mg/dL (8.5-10.1); POTASSIUM 3.7 mmol/L (3.5-5.1)
[2023-02-15] MEDS: BACLOFEN (10 MG) 10 MG TABLET GT SCH ×2 (05:09→12:27)
[2023-02-15] MEDS: BLOOD SUGAR DIAGNOSTIC 1 EACH STRIP IN SCH ×2 (06:13→12:16)
[2023-02-15] MEDS: ALPRAZOLAM 0.5 MG TABLET GT SCH (08:35)
[2023-02-15] MEDS: FUROSEMIDE 40 MG TABLET PO SCH (08:35)
[2023-02-15] MEDS: ASPIRIN 81 MG TAB.CHEW GT SCH (08:35)
[2023-02-15] MEDS: ASCORBIC ACID 500 MG TABLET GT SCH (08:35)
[2023-02-15] MEDS: PROSOURCE / PROSTAT (PYXIS) 30 ML UDC GT SCH (08:36)
[2023-02-15] MEDS: PANTOPRAZOLE 40 MG/PACK PACK GT SCH (08:36)
[2023-02-15] MEDS: DOCUSATE SODIUM LIQ 100 MG/10 ML UDC NG SCH (08:36)
[2023-02-15] MEDS: QUETIAPINE FUMARATE 25 MG TABLET GT SCH (08:36)
[2023-02-15] MEDS: CHLORHEXIDINE GLUCONATE 15 ML UDC MM SCH (08:36)
[2023-02-15] MEDS: APIXABAN 5 MG TABLET GT SCH (08:38)
[2023-02-15] MEDS: CEFTAZIDIME 1 G in IV D5W 50 ML IV SCH (12:15)
[2023-02-15] MEDS: DIGOXIN INJ 0.5 MG/2 ML AMPUL IV SCH (12:27)
[2023-02-15] MEDS ORDERED: FURO40TA5 PO (12:53)
[2023-02-15] MEDS ORDERED: IPRA0.2S9 NEB (12:53)
[2023-02-15] MEDS ORDERED: ALBU1.25 NEB (12:53)
[2023-02-15] MEDS ORDERED: CEFT1VIA55 IV (12:53)
[2023-02-15] MEDS ORDERED: DIGO50SO2 GT (12:53)
[2023-02-15] MEDS ORDERED: DOCU50LI NG (12:53)
[2023-02-15] MEDS ORDERED: Nepro GT (12:53)
[2023-02-15] MEDS ORDERED: Quetiapine Fumarate GT (12:53)
[2023-02-15] MEDS ORDERED: DIGOXIN ELIX UDC 0.25 MG/5 ML UDC GT SCH (13:00)
[2023-02-16] MEDS ORDERED: ONDA4VIA52 IV (09:03)
[2023-02-16] MEDS ORDERED: ALLA266C2 TP (09:03)
[2023-02-16] MEDS ORDERED: LORA2VIA6 IV (09:03)
[2023-02-16] MEDS ORDERED: ALBU1.257 IH (09:03)
[2023-02-16] MEDS ORDERED: POLY15DR40 EACHEYE (09:03)
[2023-02-16] MEDS ORDERED: MAG30ORA GT (09:03)
[2023-02-16] MEDS ORDERED: ZOLP5TAB8 GT (09:03)
[2023-02-16] MEDS ORDERED: DEXT50DI8 IV (09:03)
[2023-02-16] MEDS ORDERED: PANT40SU2 GT (09:03)
== END 2023-02-15 16:32 | DRG 720 ==
LOC: ER 22:34 → ICU 02-09 06:52
PROVIDERS: ADMIT Student in an Organized Health Care Education/Training Program; ATTEND Nurse Practitioner Acute Care
PROC: 5A1955Z Respiratory Ventilation, Greater than 96 Consecutive Hours (ICD-10-PCS; principal; 2023-02-09)
PROC: 02HV33Z Insertion of Infusion Device into Superior Vena Cava, Percutaneous Approach (ICD-10-PCS; 2023-02-09)
PROC: B548ZZA Ultrasonography of Superior Vena Cava, Guidance (ICD-10-PCS; 2023-02-09)
DX: A41.9 Sepsis, unspecified organism (principal); N17.0 Acute kidney failure with tubular necrosis; R65.21 Severe sepsis with septic shock; J95.851 Ventilator associated pneumonia; J15.1 Pneumonia due to Pseudomonas; E87.20 Acidosis, unspecified; J15.9 Unspecified bacterial pneumonia; D68.59 Other primary thrombophilia; I48.92 Unspecified atrial flutter; J44.0 Chronic obstructive pulmonary disease with (acute) lower respiratory infection; J81.1 Chronic pulmonary edema; J96.11 Chronic respiratory failure with hypoxia; Z93.0 Tracheostomy status; Z99.11 Dependence on respirator [ventilator] status; Z98.890 Other specified postprocedural states; Z93.1 Gastrostomy status; R13.10 Dysphagia, unspecified; I48.91 Unspecified atrial fibrillation; Z79.01 Long term (current) use of anticoagulants; E11.9 Type 2 diabetes mellitus without complications; K21.9 Gastro-esophageal reflux disease without esophagitis; Z79.82 Long term (current) use of aspirin; Z79.899 Other long term (current) drug therapy; Z86.73 Personal history of transient ischemic attack (TIA), and cerebral infarction without residual deficits; Z86.16 Personal history of COVID-19; D64.9 Anemia, unspecified; E87.5 Hyperkalemia; E87.70 Fluid overload, unspecified; J90 Pleural effusion, not elsewhere classified; Y95 Nosocomial condition; J98.11 Atelectasis; N39.0 Urinary tract infection, site not specified; B96.89 Other specified bacterial agents as the cause of diseases classified elsewhere; Y84.8 Other medical procedures as the cause of abnormal reaction of the patient, or of later complication, without mention of misadventure at the time of the procedure; Y92.199 Unspecified place in other specified residential institution as the place of occurrence of the external cause
CPT/HCPCS: 31720; 36415; 36569; 36600; 71045-TC; 80048-TC; 80202-TC; 81001; 82247-TC; 82248-TC; 82962-TC; 83605-TC; 83735-TC; 83880; 84100-TC; 84132-TC; 84478-TC; 85025-TC; 87040-TC; 87081-TC; 87086-TC; 93307-TC; 94003-TC; 94799-TC; A4216; A4223; A7526; C9803; G0378; J0282; J0692; J0713; J1160; J1940; J2060; J2185; J2250; J2370; J3370; J3480; J3490; J7030; J7040; J7042; J7050; J7060; P9047

== ENCOUNTER 2023-06-19 | Inpatient (IN) | payer MEDICARE, OTHER ==
[~2023-06-19] VITALS: Ht 172.7 cm; Wt 76.2 kg
[~2023-06-19] MED LIST changes: +ALBU1.257 IH; +ALLA266C2 TP; +CEFT1VIA55 IV; +DEXT50DI8 IV; +DIGO50SO2 GT; -DOCU-141 GT; +DOCU50LI NG; +FURO40TA5 PO; -HYDR1SOL TD; +IPRA0.2S9 NEB; -IPRA3AMP23 IH; -LACT-209 GT; -LANO3.5O3 EACHEYE; +LORA-259 GT; +LORA2VIA6 IV; +MAG30ORA GT; -MERO500V23 IV; +Nepro GT; -OMEP20CA15 GT; +ONDA4VIA52 IV; +PANT40SU2 GT; -PETR113O TP; +POLY15DR40 EACHEYE; +Quetiapine Fumarate GT; +ZOLP5TAB8 GT
[2023-06-20 08:59] VITALS: BP 124/63; TEMP 98.7; O2SAT 100
[2023-06-20] MEDS ORDERED: POLYVINYL ALCOHOL 15 ML BOTTLE EACHEYE PRN (10:00)
[2023-06-20] MEDS ORDERED: BISACODYL SUPP (10 MG) 10 MG/SUPP.RECT SUPP.RECT RC PRN (10:00)
[2023-06-20] MEDS: DIGOXIN 0.125 MG TABLET PO SCH (10:00)
[2023-06-20] MEDS ORDERED: HYDROCODONE/APAP 5/325MG TABLET GT PRN (10:00)
[2023-06-20] MEDS ORDERED: ONDANSETRON 4 MG TAB.RAPDIS GT PRN (10:00)
[2023-06-20] MEDS: DOCUSATE SODIUM LIQ 100 MG/10 ML UDC GT SCH (10:00)
[2023-06-20] MEDS ORDERED: MAG HYDROX/AL HYDROX/SIMETH 30 ML UDC GT PRN (10:00)
[2023-06-20] MEDS ORDERED: MAGNESIUM HYDROXIDE 30 ML UDC GT PRN (10:00)
[2023-06-20] MEDS ORDERED: IPRATROPIUM NEB FS 0.5 MG/2.5 ML AMPUL.NEB NEB PRN (10:00)
[2023-06-20 10:06] VITALS: O2SAT 100
[2023-06-20] MEDS: ALBUTEROL HALF STRENGTH 1.25 MG/3 ML VIAL.NEB NEB SCH (12:49)
[2023-06-20] MEDS: IPRATROPIUM NEB FS 0.5 MG/2.5 ML AMPUL.NEB NEB SCH (12:49)
[2023-06-20] MEDS: BACLOFEN (10 MG) 10 MG TABLET GT SCH (13:00)
[2023-06-20] MEDS: APIXABAN 5 MG TABLET GT SCH (17:23)
[2023-06-20 19:56] VITALS: BP 103/58; TEMP 97.9; O2SAT 100
[2023-06-20] MEDS: ALPRAZOLAM 0.5 MG TABLET GT SCH (20:19)
[2023-06-20] MEDS: ASCORBIC ACID 500 MG TABLET GT SCH (20:19)
[2023-06-20] MEDS: HYDROGEN PEROXIDE 480 ML BOTTLE TP SCH (20:20)
[2023-06-20] MEDS: CHLORHEXIDINE GLUCONATE 15 ML UDC MM SCH (20:20)
[2023-06-20] MEDS: VITAMINS A AND D 56.7 GM TUBE TP SCH (20:20)
[2023-06-20] MEDS: JEVITY 1.2 CAL 1,000 ML BOTTLE GT PRN (21:18)
[2023-06-21 02:51] VITALS: O2SAT 99
[2023-06-21 08:05] VITALS: BP 120/77; TEMP 98.8; O2SAT 92
[2023-06-21] MEDS: FUROSEMIDE 40 MG TABLET GT SCH (09:17)
[2023-06-21] MEDS: OMEPRAZOLE 20 MG CAPSULE.DR GT SCH (09:18)
[2023-06-21 11:53] VITALS: O2SAT 99
[2023-06-21 19:49] VITALS: O2SAT 97
[2023-06-21 20:31] VITALS: BP 108/61; TEMP 98.6; O2SAT 97
[2023-06-21 23:15] VITALS: O2SAT 100
[2023-06-22 07:35] VITALS: BP 107/80; TEMP 97.6; O2SAT 99
[2023-06-22 09:33] VITALS: O2SAT 99
[2023-06-22 13:11] VITALS: O2SAT 100
[2023-06-22] MEDS: DIGOXIN ELIX UDC 0.25 MG/5 ML UDC GT SCH (13:30)
[2023-06-22 19:29] VITALS: BP 101/63; TEMP 97.9; O2SAT 100
[2023-06-22 19:36] VITALS: O2SAT 100
[2023-06-22 23:12] VITALS: O2SAT 99
[2023-06-23 06:31] VITALS: BP 120/77; TEMP 100.6; O2SAT 98
[2023-06-23 07:32] VITALS: BP 160/88; TEMP 99.1; O2SAT 95
[2023-06-23 10:10] VITALS: O2SAT 99
[2023-06-23 21:18] VITALS: BP 105/51; TEMP 97.5; O2SAT 100
[2023-06-23 22:50] VITALS: O2SAT 100
[2023-06-23 22:51] VITALS: O2SAT 99
[2023-06-24 07:34] VITALS: BP 109/66; TEMP 98.8; O2SAT 100
[2023-06-24 10:20] VITALS: O2SAT 99
[2023-06-24 10:21] VITALS: O2SAT 99
[2023-06-24 19:44] VITALS: BP 125/90; TEMP 98.5; O2SAT 100
[2023-06-24 23:04] VITALS: O2SAT 100
[2023-06-25 07:48] VITALS: BP 128/84; TEMP 99.1; O2SAT 95
[2023-06-25 10:03] VITALS: O2SAT 100
[2023-06-25 11:21] VITALS: O2SAT 100
[2023-06-25 20:00] VITALS: BP 104/67; TEMP 97.9; O2SAT 100
[2023-06-25 23:01] VITALS: O2SAT 100
[2023-06-26 08:38] VITALS: BP 123/77; TEMP 98.1; O2SAT 97
[2023-06-26 10:08] VITALS: O2SAT 100
[2023-06-26 10:10] VITALS: O2SAT 100
[2023-06-26 20:00] VITALS: BP 101/58; TEMP 98; O2SAT 99
[2023-06-27 00:25] VITALS: O2SAT 100
[2023-06-27 00:26] VITALS: O2SAT 100
[2023-06-27 10:16] VITALS: O2SAT 98
[2023-06-27 11:17] VITALS: BP 126/67; TEMP 97.9; O2SAT 99
[2023-06-27 19:56] VITALS: BP 101/59; TEMP 98.1; O2SAT 100
[2023-06-27 23:10] VITALS: O2SAT 99
[2023-06-28 08:00] VITALS: BP 132/91; TEMP 98.2; O2SAT 97
[2023-06-28 10:56] VITALS: O2SAT 91
[2023-06-28 10:58] VITALS: O2SAT 97
[2023-06-28 20:00] VITALS: BP 109/77; TEMP 98.1; O2SAT 99
[2023-06-28 23:07] VITALS: O2SAT 100
[2023-06-29 07:36] VITALS: BP 142/107; TEMP 97.9; O2SAT 97
[2023-06-29 10:01] VITALS: O2SAT 98
[2023-06-29 12:27] VITALS: O2SAT 97
[2023-06-29 19:30] VITALS: BP 99/67; TEMP 99.3; O2SAT 100
[2023-06-29 23:11] VITALS: O2SAT 100
[2023-06-30 07:40] VITALS: BP 143/108; TEMP 99.5; O2SAT 100
[2023-06-30 10:14] VITALS: O2SAT 100
[2023-06-30] MEDS: LACTULOSE 10 G/15 ML UDC (PYXIS) GT PRN (13:41)
[2023-06-30 19:49] VITALS: BP 102/77; TEMP 97.9; O2SAT 99
[2023-06-30 22:39] VITALS: O2SAT 100
[2023-07-01 08:03] VITALS: BP 107/65; TEMP 98.1; O2SAT 98
[2023-07-01 10:50] VITALS: O2SAT 98
[2023-07-01 10:51] VITALS: O2SAT 98
[2023-07-01] MEDS: ACETAMINOPHEN 650 MG/20.3 ML UDC GT PRN ×2 (18:15→20:00)
[2023-07-01 19:40] VITALS: BP 110/93; TEMP 100.9; O2SAT 96
[2023-07-01 23:33] VITALS: O2SAT 100
[2023-07-02 07:40] VITALS: BP 144/76; TEMP 98.5; O2SAT 100
[2023-07-02 10:45] VITALS: O2SAT 100
[2023-07-02 10:46] VITALS: O2SAT 100
[2023-07-02 19:13] VITALS: BP 129/93; TEMP 98.4; O2SAT 100
[2023-07-02 23:15] VITALS: O2SAT 100
[2023-07-03 07:16] VITALS: BP 130/62; TEMP 98; O2SAT 99
[2023-07-03 10:41] VITALS: O2SAT 98
[2023-07-03 10:42] VITALS: O2SAT 98
[2023-07-03 20:00] VITALS: BP 128/61; TEMP 98.3; O2SAT 99
[2023-07-03 22:37] VITALS: O2SAT 99
[2023-07-03 22:38] VITALS: O2SAT 99
[2023-07-04 10:55] VITALS: O2SAT 99
[2023-07-04 10:56] VITALS: O2SAT 99
[2023-07-04 23:20] VITALS: O2SAT 96
[2023-07-05 07:07] VITALS: BP 118/91; TEMP 97.7; O2SAT 99
[2023-07-05 10:00] VITALS: O2SAT 99
[2023-07-05 10:06] VITALS: O2SAT 99
[2023-07-05 20:00] VITALS: BP 131/79; TEMP 98.6; O2SAT 99
[2023-07-05 23:32] VITALS: O2SAT 99
[2023-07-06 07:13] VITALS: BP 106/62; TEMP 97.9; O2SAT 100
[2023-07-06 12:41] VITALS: O2SAT 99
[2023-07-06 19:57] VITALS: BP 107/61; TEMP 98.2; O2SAT 99
[2023-07-06 22:59] VITALS: O2SAT 100
[2023-07-07 07:46] VITALS: BP 89/57; TEMP 99.1; O2SAT 99
[2023-07-07 10:00] VITALS: O2SAT 99
[2023-07-07 19:49] VITALS: BP 99/64; TEMP 98.1; O2SAT 100
[2023-07-07 22:59] VITALS: O2SAT 100
[2023-07-08 07:48] VITALS: BP 96/64; TEMP 98.2; O2SAT 100
[2023-07-08] MEDS ORDERED: ALPRAZOLAM 0.25 MG TABLET PO ONE (09:39)
[2023-07-08 10:01] VITALS: O2SAT 100
[2023-07-08 20:58] VITALS: BP 127/88; TEMP 98.2; O2SAT 100
[2023-07-08 23:03] VITALS: O2SAT 98
[2023-07-09 07:50] VITALS: BP 154/92; TEMP 99; O2SAT 99
[2023-07-09 10:43] VITALS: O2SAT 99
[2023-07-09 22:01] VITALS: BP 112/64; TEMP 98.8; O2SAT 100
[2023-07-09 22:02] VITALS: BP 142/67; TEMP 98.1; O2SAT 99
[2023-07-09 23:24] VITALS: O2SAT 99
[2023-07-10 07:37] VITALS: BP 113/88; TEMP 98.1; O2SAT 99
[2023-07-10 10:00] VITALS: O2SAT 99
[2023-07-10 20:00] VITALS: BP 128/61; TEMP 98.4; O2SAT 99
[2023-07-10 22:03] VITALS: O2SAT 100
[2023-07-11 08:04] VITALS: BP 132/78; TEMP 97.5; O2SAT 100
[2023-07-11 10:40] VITALS: O2SAT 100
[2023-07-11 10:41] VITALS: O2SAT 100
[2023-07-11 21:46] VITALS: BP 129/64; TEMP 98.2; O2SAT 100
[2023-07-11 23:44] VITALS: O2SAT 100
[2023-07-12 10:22] VITALS: O2SAT 98
[2023-07-12 10:23] VITALS: O2SAT 100
[2023-07-12 20:00] VITALS: BP 128/71; TEMP 98.1; O2SAT 99
[2023-07-12 23:02] VITALS: O2SAT 100
[2023-07-13 07:29] VITALS: BP 124/84; TEMP 98.6; O2SAT 100
[2023-07-13 10:52] VITALS: O2SAT 100
[2023-07-13 19:34] VITALS: BP 118/76; TEMP 97.7; O2SAT 100
[2023-07-13 22:14] VITALS: O2SAT 100
[2023-07-14 07:16] VITALS: BP 132/82; TEMP 98.4; O2SAT 100
[2023-07-14 10:21] VITALS: O2SAT 100
[2023-07-14 19:34] VITALS: BP 99/82; TEMP 99.3; O2SAT 100
[2023-07-14 22:49] VITALS: O2SAT 98
[2023-07-14 22:50] VITALS: O2SAT 98
[2023-07-15 07:34] VITALS: BP 142/87; TEMP 98.6; O2SAT 100
[2023-07-15 10:44] VITALS: O2SAT 98
[2023-07-15 10:45] VITALS: O2SAT 100
[2023-07-15 19:58] VITALS: BP 111/73; TEMP 99.5; O2SAT 100
[2023-07-15 22:37] VITALS: O2SAT 100
[2023-07-16] MEDS: LORAZEPAM 1 MG TABLET GT PRN (06:47)
[2023-07-16 07:46] VITALS: BP 154/82; TEMP 98.1; O2SAT 98
[2023-07-16 10:10] VITALS: O2SAT 100
[2023-07-16 20:08] VITALS: BP 121/69; TEMP 98.1; O2SAT 98
[2023-07-16 22:47] VITALS: O2SAT 99
[2023-07-17 07:44] VITALS: BP 104/64; TEMP 97.7; O2SAT 100
[2023-07-17 10:01] VITALS: O2SAT 100
[2023-07-17 20:00] VITALS: BP 128/74; TEMP 98.3; O2SAT 99
[2023-07-17] MEDS: POVIDONE-IODINE OINT 28.4 GM TUBE TP SCH (21:29)
[2023-07-17 22:39] VITALS: O2SAT 100
[2023-07-18 07:20] VITALS: BP 138/78; TEMP 97.3; O2SAT 98
[2023-07-18 11:09] VITALS: O2SAT 98
[2023-07-18 11:10] VITALS: O2SAT 98
[2023-07-18 20:00] VITALS: BP 117/81; TEMP 98; O2SAT 99
[2023-07-18 22:03] VITALS: O2SAT 100
[2023-07-19 07:24] VITALS: BP 104/73; TEMP 98.1; O2SAT 100
[2023-07-19 10:13] VITALS: O2SAT 99
[2023-07-19 10:14] VITALS: O2SAT 99
[2023-07-19 20:00] VITALS: BP 102/70; TEMP 98.1; O2SAT 99
[2023-07-19 22:59] VITALS: O2SAT 100
[2023-07-20 10:23] VITALS: O2SAT 99
[2023-07-20 10:24] VITALS: O2SAT 99
[2023-07-20 15:05] VITALS: BP 125/95; TEMP 97.9; O2SAT 100
[2023-07-20 19:04] VITALS: BP 105/75; TEMP 98.4; O2SAT 100
[2023-07-20 23:08] VITALS: O2SAT 100
[2023-07-21 08:01] VITALS: BP 101/72; TEMP 99; O2SAT 100
[2023-07-21 10:02] VITALS: O2SAT 99
[2023-07-21 18:59] VITALS: BP 101/81; TEMP 98.1; O2SAT 99
[2023-07-21 22:43] VITALS: O2SAT 100
[2023-07-21 22:44] VITALS: O2SAT 99
[2023-07-22 07:35] VITALS: BP 113/79; TEMP 97.9; O2SAT 99
[2023-07-22 10:05] VITALS: O2SAT 100
[2023-07-22 19:43] VITALS: BP 119/72; TEMP 98.2; O2SAT 97
[2023-07-22 23:28] VITALS: O2SAT 98
[2023-07-22 23:29] VITALS: O2SAT 99
[2023-07-23 08:15] VITALS: BP 94/72; TEMP 98.1; O2SAT 100
[2023-07-23 10:38] VITALS: O2SAT 100
[2023-07-23 20:04] VITALS: BP 98/61; TEMP 98.2; O2SAT 100
[2023-07-23 23:18] VITALS: O2SAT 96
[2023-07-24 08:05] VITALS: BP 129/96; TEMP 98; O2SAT 100
[2023-07-24 08:06] LABS: BASOPHILS % (AUTO) 0.2 % (0.0-2.0); EOSINOPHILS # (AUTO) 0.3 K/uL (0.0-0.7); EOSINOPHILS % (AUTO) 3.5 % (0.0-6.0); HEMATOCRIT 34 % (39-51); LYMPHOCYTES # (AUTO) 1.3 K/uL (0.8-4.8); MEAN CORPUSCULAR HEMOGLOBIN 31 PG (26.0-33.0); MEAN CORPUSCULAR HGB CONC 33 g/dl (31.0-36.0); MEAN CORPUSCULAR VOLUME 95 fL (80-96); MONOCYTES # (AUTO) 0.7 K/uL (0.1-1.30); MONOCYTES % (AUTO) 7.3 % (2.0-12.0); NEUTROPHILS # (AUTO) 7.4 K/uL (1.8-8.9); PLATELET COUNT (AUTO) 314 K/uL (150-450); RED BLOOD CELL COUNT(AUTO) 3.56 MIL/uL (4.5-6.0); RED CELL DISTRIBUTION WIDTH 16.5 % (11.5-15.0); WHITE BLOOD COUNT (AUTO) 9.7 K/uL (4.3-11.0)
[2023-07-24 08:36] LABS: CALCIUM, SERUM 8.7 mg/dL (8.5-10.1); CREATININE 0.7 mg/dL (0.6-1.3); POTASSIUM 4.3 mmol/L (3.5-5.1)
[2023-07-24 10:04] VITALS: O2SAT 95
[2023-07-24] MEDS: PNEUMOC 20-VAL CONJ-DIP CRM/PF 0.5 ML SYRINGE IM ONE (17:47)
[2023-07-24 20:00] VITALS: BP 131/67; TEMP 98.3; O2SAT 99
[2023-07-24 22:36] VITALS: O2SAT 98
[2023-07-24 22:37] VITALS: O2SAT 98
[2023-07-25 07:27] VITALS: BP 106/54; TEMP 98.2; O2SAT 97
[2023-07-25 11:04] VITALS: O2SAT 99
[2023-07-25 11:05] VITALS: O2SAT 99
[2023-07-25 20:53] VITALS: BP 121/75; TEMP 98.4; O2SAT 97
[2023-07-26] VITALS (7 sets, daily range): BP systolic 114–140; BP diastolic 75–88; TEMP 97.9; O2SAT 99–100
[2023-07-27 07:16] VITALS: BP 152/94; TEMP 98.2; O2SAT 100
[2023-07-27 10:08] VITALS: O2SAT 100
[2023-07-27 19:28] VITALS: BP 143/91; TEMP 97.7; O2SAT 99
[2023-07-27 23:00] VITALS: O2SAT 100
[2023-07-28 07:23] VITALS: BP 145/95; TEMP 98.8; O2SAT 100
[2023-07-28 10:43] VITALS: O2SAT 100
[2023-07-28 19:05] VITALS: BP 145/97; TEMP 98.1; O2SAT 98
[2023-07-28 23:14] VITALS: O2SAT 99
[2023-07-29 07:45] VITALS: BP 106/57; TEMP 97.9; O2SAT 99
[2023-07-29 10:10] VITALS: O2SAT 99
[2023-07-29 19:10] VITALS: BP 97/61; TEMP 98.6; O2SAT 100
[2023-07-29 23:50] VITALS: O2SAT 100
[2023-07-29 23:52] VITALS: O2SAT 99
[2023-07-30 07:38] VITALS: BP 103/63; TEMP 98.1; O2SAT 100
[2023-07-30 10:03] VITALS: O2SAT 100
[2023-07-30 10:04] VITALS: O2SAT 100
[2023-07-30 20:01] VITALS: BP 141/93; TEMP 97.9; O2SAT 100
[2023-07-30 23:14] VITALS: O2SAT 98
[2023-07-31 08:39] VITALS: BP 108/83; TEMP 98.6; O2SAT 100
[2023-07-31 10:02] VITALS: O2SAT 99
[2023-07-31 21:15] VITALS: BP 128/89; TEMP 97.9; O2SAT 99
[2023-08-01 10:45] VITALS: BP 104/61; TEMP 97.9; O2SAT 100
[2023-08-01 10:53] VITALS: O2SAT 100
[2023-08-01 20:03] VITALS: BP 111/70; TEMP 97.9; O2SAT 100
[2023-08-01 23:28] VITALS: O2SAT 100
[2023-08-02 10:45] VITALS: O2SAT 99
[2023-08-02 20:17] VITALS: BP 103/62; TEMP 98.1; O2SAT 98
[2023-08-02 23:32] VITALS: O2SAT 100
[2023-08-03 07:47] VITALS: BP 130/89; TEMP 97.7; O2SAT 98
[2023-08-03] MEDS: BACI/NEOM/POLY B OINT PKT 1 UDPKT PACKET TP SCH (09:40)
[2023-08-03 10:04] VITALS: O2SAT 98
[2023-08-03 20:10] VITALS: BP 105/75; TEMP 98.9; O2SAT 98
[2023-08-03 23:39] VITALS: O2SAT 100
[2023-08-03 23:40] VITALS: O2SAT 100
[2023-08-04 07:22] VITALS: BP 119/86; TEMP 99; O2SAT 93
[2023-08-04 10:04] VITALS: O2SAT 96
[2023-08-04 10:05] VITALS: O2SAT 97
[2023-08-04 19:52] VITALS: BP 108/59; TEMP 98.1; O2SAT 100
[2023-08-04 23:32] VITALS: O2SAT 100
[2023-08-04 23:33] VITALS: O2SAT 100
[2023-08-05 07:56] VITALS: BP 98/52; TEMP 98.6; O2SAT 100
[2023-08-05] MEDS: BACI/NEOM/POLY B OINT PKT 1 UDPKT PACKET TP SCH (09:00)
[2023-08-05 10:01] VITALS: O2SAT 98
[2023-08-05 19:34] VITALS: BP 123/70; TEMP 98.1; O2SAT 98
[2023-08-05 22:47] VITALS: O2SAT 100
[2023-08-06 08:04] VITALS: BP 116/67; TEMP 99.1; O2SAT 99
[2023-08-06 10:04] VITALS: O2SAT 98
[2023-08-06 20:00] VITALS: BP 128/81; TEMP 98.2; O2SAT 99
[2023-08-06 23:00] VITALS: O2SAT 100
[2023-08-06 23:01] VITALS: O2SAT 100
[2023-08-07 07:39] VITALS: BP 111/71; TEMP 98.2; O2SAT 100
[2023-08-07 10:03] VITALS: O2SAT 98
[2023-08-07] MEDS: Z GUARD REMEDY 4 OZ OINT TP SCH (20:34)
[2023-08-07 20:54] VITALS: BP 129/89; TEMP 98.3; O2SAT 99
[2023-08-07 23:13] VITALS: O2SAT 100
[2023-08-08 07:44] VITALS: BP 95/57; TEMP 97.7; O2SAT 100
[2023-08-08 10:13] VITALS: O2SAT 98
[2023-08-08 10:14] VITALS: O2SAT 98
[2023-08-08 20:00] VITALS: BP 97/58; TEMP 97.9; O2SAT 100
[2023-08-09 02:41] VITALS: O2SAT 100
[2023-08-09 08:13] VITALS: BP 105/64; TEMP 98.1; O2SAT 100
[2023-08-09 11:18] VITALS: O2SAT 99
[2023-08-09 20:00] VITALS: BP 119/75; TEMP 98; O2SAT 99
[2023-08-09 23:01] VITALS: O2SAT 98
[2023-08-10 10:39] VITALS: O2SAT 99
[2023-08-10 15:17] VITALS: BP 104/63; TEMP 98.6; O2SAT 100
[2023-08-10 23:19] VITALS: O2SAT 98
[2023-08-11 07:16] VITALS: BP 134/77; TEMP 98.1; O2SAT 99
[2023-08-11 10:30] VITALS: O2SAT 99
[2023-08-11 10:31] VITALS: O2SAT 99
[2023-08-11 19:13] VITALS: BP 109/79; TEMP 98.6; O2SAT 99
[2023-08-11 20:18] VITALS: BP 109/79; TEMP 98.6; O2SAT 99
[2023-08-11 23:09] VITALS: O2SAT 100
[2023-08-12 07:41] VITALS: BP 130/91; TEMP 99; O2SAT 98
[2023-08-12 09:13] VITALS: O2SAT 98
[2023-08-12 12:18] VITALS: O2SAT 100
[2023-08-12 21:15] VITALS: BP 115/64; TEMP 98.2; O2SAT 97
[2023-08-12 23:03] VITALS: O2SAT 99
[2023-08-13 07:41] VITALS: BP 111/81; TEMP 99; O2SAT 100
[2023-08-13 09:54] VITALS: O2SAT 98
[2023-08-13 11:56] VITALS: O2SAT 98
[2023-08-13 22:26] VITALS: BP 128/78; TEMP 98.2; O2SAT 96
[2023-08-13 22:54] VITALS: O2SAT 99
[2023-08-14 10:02] VITALS: O2SAT 98
[2023-08-14 10:03] VITALS: O2SAT 98
[2023-08-14 21:18] VITALS: BP 106/55; TEMP 98.2; O2SAT 100
[2023-08-15 00:22] VITALS: O2SAT 99
[2023-08-15 09:44] VITALS: O2SAT 100
[2023-08-15 10:00] VITALS: BP 103/68; TEMP 97.2; O2SAT 100
[2023-08-15 10:01] VITALS: O2SAT 100
[2023-08-15 19:22] VITALS: BP 96/58; TEMP 98.6; O2SAT 99
[2023-08-15 23:48] VITALS: O2SAT 97
[2023-08-16 07:28] VITALS: BP 127/60; TEMP 97.7; O2SAT 100
[2023-08-16 10:52] VITALS: O2SAT 100
[2023-08-16 19:46] VITALS: BP 102/64; TEMP 98.7; O2SAT 100
[2023-08-16 22:50] VITALS: O2SAT 100
[2023-08-17 08:06] VITALS: BP 112/63; TEMP 97; O2SAT 100
[2023-08-17 10:42] VITALS: O2SAT 100
[2023-08-17 19:36] VITALS: BP 100/72; TEMP 97.5; O2SAT 98
[2023-08-17 23:27] VITALS: O2SAT 100
[2023-08-18] VITALS (7 sets, daily range): BP systolic 100–116; BP diastolic 69–85; TEMP 97.9–100.2; O2SAT 98–100
[2023-08-19 07:06] VITALS: BP 98/62; TEMP 97.7; O2SAT 100
[2023-08-19 07:40] VITALS: O2SAT 100
[2023-08-19 11:34] VITALS: O2SAT 100
[2023-08-19 20:19] VITALS: BP 113/68; TEMP 98.2; O2SAT 98
[2023-08-19 22:17] VITALS: O2SAT 100
[2023-08-19 22:18] VITALS: O2SAT 100
[2023-08-20 07:32] VITALS: BP 143/81; TEMP 98.2; O2SAT 97
[2023-08-20 10:54] VITALS: O2SAT 97
[2023-08-20 10:55] VITALS: O2SAT 97
[2023-08-20 20:00] VITALS: BP 137/68; TEMP 98.4; O2SAT 99
[2023-08-20 22:35] VITALS: O2SAT 100; O2SAT 99
[2023-08-21 07:58] VITALS: BP 101/52; TEMP 97.7; O2SAT 100
[2023-08-21 10:06] VITALS: O2SAT 100; O2SAT 98
[2023-08-21 20:00] VITALS: BP 130/86; TEMP 98.6; O2SAT 99
[2023-08-21 23:28] VITALS: BP 167/94; TEMP 98.2; O2SAT 99
[2023-08-22 00:07] VITALS: O2SAT 99
[2023-08-22 00:09] VITALS: O2SAT 99
[2023-08-22 07:39] VITALS: BP 111/59; TEMP 98.2; O2SAT 100
[2023-08-22 10:11] VITALS: O2SAT 98; O2SAT 99
[2023-08-22 19:57] VITALS: BP 104/53; TEMP 97.9; O2SAT 100
[2023-08-22 23:28] VITALS: O2SAT 100
[2023-08-23 07:46] VITALS: BP 99/63; TEMP 97.7; O2SAT 100
[2023-08-23 10:59] VITALS: O2SAT 99
[2023-08-23 11:00] VITALS: O2SAT 99
[2023-08-23 20:06] VITALS: BP 108/78; TEMP 97.7; O2SAT 99
[2023-08-23 23:24] VITALS: O2SAT 99
[2023-08-24 07:47] VITALS: BP 114/68; TEMP 98.6; O2SAT 99
[2023-08-24] MEDS ORDERED: LORAZEPAM 1 MG TABLET GT PRN (13:00)
[2023-08-24 16:57] VITALS: O2SAT 99
[2023-08-24 20:08] VITALS: BP 96/51; TEMP 98.1; O2SAT 99
[2023-08-24 23:02] VITALS: O2SAT 97
[2023-08-25 08:21] VITALS: BP 104/54; TEMP 98.2; O2SAT 99
[2023-08-25 10:17] VITALS: O2SAT 97
[2023-08-25 19:42] VITALS: BP 96/64; TEMP 98.3; O2SAT 96
[2023-08-25 22:22] VITALS: O2SAT 98
[2023-08-25 22:23] VITALS: O2SAT 96
[2023-08-26 07:14] LABS: BASOPHILS % (AUTO) 0.1 % (0.0-2.0); EOSINOPHILS # (AUTO) 0.4 K/uL (0.0-0.7); EOSINOPHILS % (AUTO) 4.4 % (0.0-6.0); HEMATOCRIT 36 % (39-51); LYMPHOCYTES # (AUTO) 0.7 K/uL (0.8-4.8); LYMPHOCYTES % (AUTO) 8.3 % (20.0-44.0); MEAN CORPUSCULAR HEMOGLOBIN 32 PG (26.0-33.0); MEAN CORPUSCULAR HGB CONC 33 g/dl (31.0-36.0); MEAN CORPUSCULAR VOLUME 95 fL (80-96); MONOCYTES # (AUTO) 0.5 K/uL (0.1-1.30); MONOCYTES % (AUTO) 6.1 % (2.0-12.0); NEUTROPHILS # (AUTO) 6.7 K/uL (1.8-8.9); NEUTROPHILS % (AUTO) 81.1 % (43.0-81.0); PLATELET COUNT (AUTO) 309 K/uL (150-450); RED BLOOD CELL COUNT(AUTO) 3.79 MIL/uL (4.5-6.0); RED CELL DISTRIBUTION WIDTH 16.1 % (11.5-15.0); WHITE BLOOD COUNT (AUTO) 8.3 K/uL (4.3-11.0)
[2023-08-26 07:26] LABS: INR 1.13 (0.91-1.10); PROTHROMBIN TIME 11.9 SECS (9.2-11.1)
[2023-08-26 08:03] LABS: CALCIUM, SERUM 8.7 mg/dL (8.5-10.1); CREATININE 0.7 mg/dL (0.6-1.3); POTASSIUM 4.5 mmol/L (3.5-5.1)
[2023-08-26 10:05] VITALS: O2SAT 100
[2023-08-26 10:06] VITALS: O2SAT 100
[2023-08-26 20:03] VITALS: BP 107/65; TEMP 98.8; O2SAT 100
[2023-08-26 22:53] VITALS: O2SAT 99
[2023-08-27 08:06] VITALS: BP 117/70; TEMP 98.2; O2SAT 100
[2023-08-27 09:42] VITALS: O2SAT 100
[2023-08-27 12:17] VITALS: O2SAT 100
[2023-08-27 19:38] VITALS: BP 105/70; TEMP 99.1; O2SAT 100
[2023-08-27 22:50] VITALS: O2SAT 100
[2023-08-28 08:14] VITALS: BP 132/92; TEMP 99; O2SAT 99
[2023-08-28 10:00] VITALS: TEMP 97.6
[2023-08-28 10:15] VITALS: O2SAT 100
[2023-08-28 20:00] VITALS: BP 128/61; TEMP 98.4; O2SAT 99
[2023-08-28 23:21] VITALS: O2SAT 98
[2023-08-28 23:22] VITALS: O2SAT 98
[2023-08-29 08:16] VITALS: BP 95/66; TEMP 97.9; O2SAT 100
[2023-08-29 08:33] VITALS: O2SAT 100
[2023-08-29 11:53] VITALS: O2SAT 100
[2023-08-29 14:29] VITALS: O2SAT 100
[2023-08-29 20:00] VITALS: BP 128/71; TEMP 98.3; O2SAT 99
[2023-08-30 01:52] VITALS: O2SAT 100
[2023-08-30 07:14] VITALS: BP 151/88; TEMP 98.8; O2SAT 99
[2023-08-30 10:54] VITALS: O2SAT 98
[2023-08-30 10:55] VITALS: O2SAT 98
[2023-08-30 20:38] VITALS: BP 107/64; TEMP 98.1; O2SAT 99
[2023-08-30 23:17] VITALS: O2SAT 99
[2023-08-31 07:35] VITALS: BP 135/81; TEMP 98.1; O2SAT 100
[2023-08-31 10:11] VITALS: O2SAT 100; O2SAT 99
[2023-08-31 20:31] VITALS: BP 97/53; TEMP 98.6; O2SAT 100
[2023-08-31 23:15] VITALS: O2SAT 99
[2023-09-01 08:51] VITALS: BP 127/81; TEMP 99.1; O2SAT 100
[2023-09-01 10:41] VITALS: O2SAT 100
[2023-09-01 15:59] VITALS: O2SAT 100
[2023-09-01 19:22] VITALS: BP 118/67; TEMP 97.7; O2SAT 97
[2023-09-01] MEDS: POVIDONE-IODINE OINT 28.4 GM TUBE TP SCH (21:27)
[2023-09-01 22:54] VITALS: O2SAT 99
[2023-09-01 22:55] VITALS: O2SAT 99
[2023-09-02 07:43] VITALS: BP 128/98; TEMP 98.1; O2SAT 98
[2023-09-02 10:49] VITALS: O2SAT 98
[2023-09-02 10:50] VITALS: O2SAT 98
[2023-09-02 20:10] VITALS: BP 126/85; TEMP 97.6; O2SAT 99
[2023-09-02 22:35] VITALS: O2SAT 10; O2SAT 100
[2023-09-03 08:00] VITALS: BP 147/104; TEMP 97.9; O2SAT 100
[2023-09-03 10:06] VITALS: O2SAT 100
[2023-09-03 20:17] VITALS: BP 113/80; TEMP 97.9; O2SAT 100
[2023-09-03 22:45] VITALS: O2SAT 100
[2023-09-04 11:07] VITALS: BP 93/60; TEMP 97.7; O2SAT 99
[2023-09-04 11:32] VITALS: O2SAT 100
[2023-09-04 11:33] VITALS: O2SAT 100
[2023-09-04 19:58] VITALS: BP 97/62; TEMP 98.6; O2SAT 98
[2023-09-04 22:35] VITALS: O2SAT 100
[2023-09-05 08:18] VITALS: BP 106/82; TEMP 97.7; O2SAT 99
[2023-09-05 11:16] VITALS: O2SAT 98
[2023-09-05 11:17] VITALS: O2SAT 98
[2023-09-05 20:03] VITALS: BP 100/66; TEMP 98.1; O2SAT 99
[2023-09-05 22:41] VITALS: O2SAT 99
[2023-09-05 22:42] VITALS: O2SAT 99
[2023-09-06] VITALS (8 sets, daily range): BP systolic 95–128; BP diastolic 68–73; TEMP 98.1–99.1; O2SAT 96–100
[2023-09-07 07:22] VITALS: BP 128/86; TEMP 97.9; O2SAT 99
[2023-09-07 14:21] VITALS: O2SAT 99
[2023-09-07 14:22] VITALS: O2SAT 99
[2023-09-07 19:10] VITALS: BP 111/83; TEMP 99.5; O2SAT 98
[2023-09-07] MEDS: POVIDONE-IODINE OINT 28.4 GM TUBE TP SCH (21:45)
[2023-09-07 22:54] VITALS: O2SAT 100
[2023-09-08 07:07] VITALS: BP 90/54; TEMP 98.6; O2SAT 100
[2023-09-08 10:02] VITALS: O2SAT 100
[2023-09-08 19:16] VITALS: BP 109/80; TEMP 99; O2SAT 99
[2023-09-08 23:27] VITALS: O2SAT 100
[2023-09-09 07:56] VITALS: BP 122/97; TEMP 97.9; O2SAT 99
[2023-09-09 10:27] VITALS: O2SAT 99
[2023-09-09 10:28] VITALS: O2SAT 99
[2023-09-09 19:22] VITALS: BP 110/75; TEMP 99.3; O2SAT 99
[2023-09-09 23:54] VITALS: O2SAT 100
[2023-09-10 07:32] VITALS: BP 147/63; TEMP 97.9; O2SAT 99
[2023-09-10 10:09] VITALS: O2SAT 100
[2023-09-10 10:10] VITALS: O2SAT 100
[2023-09-10 20:02] VITALS: BP 109/75; TEMP 98.2; O2SAT 99
[2023-09-10 23:24] VITALS: O2SAT 99
[2023-09-11 11:14] VITALS: O2SAT 99
[2023-09-11 14:00] VITALS: BP 123/79; TEMP 97.4; O2SAT 99
[2023-09-11 20:05] VITALS: BP 114/86; TEMP 98.1; O2SAT 100
[2023-09-11 22:41] VITALS: O2SAT 99
[2023-09-12 07:35] VITALS: BP 117/83; TEMP 98.6; O2SAT 97
[2023-09-12 10:29] VITALS: O2SAT 98
[2023-09-12 10:31] VITALS: O2SAT 98
[2023-09-12] MEDS: COVID-19 VACC, SPIKEVAX /PF 50 MCG/0.5 ML VIAL/SYR IM ONE (17:01)
[2023-09-12 19:54] VITALS: BP 96/74; TEMP 97.5; O2SAT 100
[2023-09-12 23:05] VITALS: O2SAT 100
[2023-09-12 23:11] VITALS: O2SAT 100
[2023-09-13 07:59] VITALS: BP 121/88; TEMP 98.7; O2SAT 99
[2023-09-13 08:01] VITALS: BP 139/63; TEMP 97.4; O2SAT 99
[2023-09-13 10:09] VITALS: O2SAT 99
[2023-09-13 10:19] VITALS: O2SAT 99
[2023-09-13 20:00] VITALS: BP 95/66; TEMP 97.9; O2SAT 99
[2023-09-13 23:46] VITALS: O2SAT 100
[2023-09-14 08:48] VITALS: BP 133/98; TEMP 99.1; O2SAT 99
[2023-09-14 10:07] VITALS: O2SAT 100
[2023-09-14 10:08] VITALS: O2SAT 100
[2023-09-14 19:41] VITALS: BP 109/75; TEMP 98.9; O2SAT 99
[2023-09-14 23:37] VITALS: O2SAT 100
[2023-09-14 23:38] VITALS: O2SAT 100
[2023-09-15 08:06] VITALS: BP 120/93; TEMP 98.6; O2SAT 100
[2023-09-15 10:14] VITALS: O2SAT 100
[2023-09-15 19:39] VITALS: BP 99/74; TEMP 98.2; O2SAT 99
[2023-09-15 23:01] VITALS: O2SAT 99
[2023-09-16 07:37] VITALS: BP 108/85; TEMP 97.9; O2SAT 99
[2023-09-16 09:55] VITALS: O2SAT 100
[2023-09-16 09:56] VITALS: O2SAT 100
[2023-09-16 21:27] VITALS: BP 105/72; TEMP 98.7; O2SAT 95
[2023-09-16 22:47] VITALS: O2SAT 99
[2023-09-17 08:50] VITALS: O2SAT 99
[2023-09-17 08:59] VITALS: O2SAT 99
[2023-09-17 11:08] VITALS: O2SAT 99
[2023-09-17 15:52] VITALS: BP 101/67; TEMP 98.8; O2SAT 96
[2023-09-17 20:00] VITALS: BP 128/71; TEMP 98.3; O2SAT 99
[2023-09-17 22:37] VITALS: O2SAT 100
[2023-09-18 08:28] VITALS: BP 95/56
[2023-09-18 09:07] VITALS: O2SAT 100
[2023-09-18 11:20] VITALS: O2SAT 100
[2023-09-18 20:00] VITALS: BP 128/60; TEMP 98.3; O2SAT 99
[2023-09-18 22:25] VITALS: O2SAT 100
[2023-09-19 08:02] VITALS: BP 120/73; TEMP 98.2; O2SAT 100
[2023-09-19 10:07] VITALS: O2SAT 100
[2023-09-19 20:06] VITALS: BP 112/85; TEMP 97.7; O2SAT 100
[2023-09-19 22:50] VITALS: O2SAT 100
[2023-09-20 07:34] VITALS: BP 137/81; TEMP 97.2; O2SAT 100
[2023-09-20 10:38] VITALS: O2SAT 100
[2023-09-20 10:39] VITALS: O2SAT 100
[2023-09-20 19:36] VITALS: O2SAT 99
[2023-09-20 20:00] VITALS: BP 98/68; TEMP 98.2; O2SAT 100
[2023-09-20 23:21] VITALS: O2SAT 99
[2023-09-21 07:40] VITALS: BP 102/51; TEMP 98.8; O2SAT 98
[2023-09-21 10:06] VITALS: O2SAT 100
[2023-09-21 16:02] VITALS: O2SAT 99
[2023-09-21 19:24] VITALS: BP 119/82; TEMP 97.7; O2SAT 100
[2023-09-21 23:17] VITALS: O2SAT 100
[2023-09-22 08:15] VITALS: BP 131/82; TEMP 98.8; O2SAT 99
[2023-09-22 11:09] VITALS: O2SAT 100
[2023-09-22 12:01] VITALS: O2SAT 98
[2023-09-22 23:14] VITALS: O2SAT 100
[2023-09-23 07:38] VITALS: BP 130/89; TEMP 98.1; O2SAT 96
[2023-09-23 11:06] VITALS: O2SAT 99
[2023-09-23 19:22] VITALS: BP 126/85; TEMP 99.5; O2SAT 100
[2023-09-23 23:32] VITALS: O2SAT 100
[2023-09-24 07:41] VITALS: BP 136/90; TEMP 97.5; O2SAT 98
[2023-09-24 11:00] VITALS: O2SAT 100
[2023-09-24 19:08] VITALS: BP 125/72; TEMP 99.5; O2SAT 97
[2023-09-24 23:06] VITALS: O2SAT 98
[2023-09-25 08:44] VITALS: BP 117/55; TEMP 97.9; O2SAT 100
[2023-09-25 10:02] VITALS: O2SAT 100
[2023-09-25 21:45] VITALS: BP 135/64; TEMP 98.4; O2SAT 97
[2023-09-26 00:26] VITALS: O2SAT 100
[2023-09-26 07:55] VITALS: BP 130/81; TEMP 97.9; O2SAT 100
[2023-09-26 10:51] VITALS: O2SAT 100
[2023-09-26 10:52] VITALS: O2SAT 100
[2023-09-26 19:42] VITALS: BP 107/73; TEMP 99.1; O2SAT 99
[2023-09-27 00:12] VITALS: O2SAT 100
[2023-09-27 07:09] VITALS: BP 97/71; TEMP 98.1; O2SAT 100
[2023-09-27 10:04] VITALS: O2SAT 99
[2023-09-27 10:05] VITALS: O2SAT 100
[2023-09-27 20:00] VITALS: BP 104/68; TEMP 99.1; O2SAT 99
[2023-09-27 23:41] VITALS: O2SAT 100
[2023-09-28 07:10] VITALS: BP 96/63; TEMP 98.2; O2SAT 95
[2023-09-28 10:27] VITALS: O2SAT 99
[2023-09-28 10:28] VITALS: O2SAT 100
[2023-09-28 19:45] VITALS: BP 108/67; TEMP 98.3; O2SAT 98
[2023-09-28 23:08] VITALS: O2SAT 100
[2023-09-29 07:48] VITALS: BP 111/56; TEMP 97.8; O2SAT 98
[2023-09-29 10:05] VITALS: O2SAT 99
[2023-09-29 19:58] VITALS: BP 109/63; TEMP 98.1; O2SAT 100
[2023-09-29 23:30] VITALS: O2SAT 99
[2023-09-30 08:00] VITALS: BP 112/75; TEMP 98.2; O2SAT 100
[2023-09-30 10:09] VITALS: O2SAT 99
[2023-09-30 21:14] VITALS: BP 101/57; TEMP 97.7; O2SAT 100
[2023-09-30 23:00] VITALS: O2SAT 100
[2023-10-01 10:02] VITALS: O2SAT 99
[2023-10-01 20:00] VITALS: BP 129/81; TEMP 97.5; O2SAT 99
[2023-10-01 22:52] VITALS: O2SAT 100
[2023-10-02 07:45] VITALS: BP 111/76; TEMP 98.2; O2SAT 98
[2023-10-02 10:02] VITALS: O2SAT 100
[2023-10-02 10:03] VITALS: O2SAT 100
[2023-10-02 20:00] VITALS: BP 117/68; TEMP 98.3; O2SAT 99
[2023-10-02 22:09] VITALS: O2SAT 100
[2023-10-03 07:35] VITALS: BP 131/72; TEMP 98; O2SAT 98
[2023-10-03 10:02] VITALS: O2SAT 100
[2023-10-03 10:03] VITALS: O2SAT 100
[2023-10-03 20:02] VITALS: BP 99/66; TEMP 98.9; O2SAT 98
[2023-10-03 23:07] VITALS: O2SAT 100
[2023-10-04 07:32] VITALS: BP 107/80; TEMP 97.2; O2SAT 99
[2023-10-04 10:16] VITALS: O2SAT 99
[2023-10-04 10:59] VITALS: O2SAT 99
[2023-10-04 20:00] VITALS: BP 112/76; TEMP 97.5; O2SAT 99
[2023-10-04 23:26] VITALS: O2SAT 100
[2023-10-05 07:33] VITALS: BP 98/59; TEMP 97.3; O2SAT 100
[2023-10-05 10:04] VITALS: O2SAT 100
[2023-10-05 10:46] VITALS: O2SAT 100
[2023-10-05 19:20] VITALS: BP 112/60; TEMP 98.4; O2SAT 98
[2023-10-05 23:15] VITALS: O2SAT 100
[2023-10-06 07:48] VITALS: BP 125/89; TEMP 98.2; O2SAT 100
[2023-10-06 15:03] VITALS: O2SAT 98
[2023-10-06 15:04] VITALS: O2SAT 98
[2023-10-06 19:04] VITALS: BP 105/70; TEMP 98.8; O2SAT 100
[2023-10-06 23:40] VITALS: O2SAT 100
[2023-10-07 10:32] VITALS: O2SAT 100
[2023-10-07 10:33] VITALS: O2SAT 100
[2023-10-07 16:01] VITALS: BP 108/90; TEMP 98.1; O2SAT 100
[2023-10-07 19:06] VITALS: BP 118/70; TEMP 99.1; O2SAT 99
[2023-10-07 22:38] VITALS: O2SAT 100
[2023-10-08 07:48] VITALS: BP 97/69; TEMP 97.9; O2SAT 100
[2023-10-08 11:49] VITALS: O2SAT 100
[2023-10-08 11:50] VITALS: O2SAT 100
[2023-10-08 19:10] VITALS: BP 117/87; TEMP 98.2; O2SAT 100
[2023-10-08 22:55] VITALS: O2SAT 100
[2023-10-09 07:41] VITALS: BP 133/77; TEMP 98.4; O2SAT 98
[2023-10-09 10:03] VITALS: O2SAT 100
[2023-10-09 20:00] VITALS: BP 126/71; TEMP 97.5; O2SAT 100
[2023-10-09 22:22] VITALS: O2SAT 100
[2023-10-10 07:37] VITALS: BP 129/81; TEMP 98.1; O2SAT 95
[2023-10-10 10:25] VITALS: O2SAT 100
[2023-10-10 19:47] VITALS: BP 131/83; TEMP 98.8; O2SAT 100
[2023-10-10 23:24] VITALS: O2SAT 100
[2023-10-11 08:12] VITALS: BP 121/88; TEMP 97.6; O2SAT 100
[2023-10-11 10:48] VITALS: O2SAT 99
[2023-10-11 10:49] VITALS: O2SAT 100
[2023-10-11 20:00] VITALS: BP 91/63; TEMP 97.8; O2SAT 100
[2023-10-11 23:35] VITALS: O2SAT 100
[2023-10-11 23:36] VITALS: O2SAT 100
[2023-10-12 07:34] VITALS: BP 100/65; TEMP 99.3; O2SAT 98
[2023-10-12 11:22] VITALS: O2SAT 99
[2023-10-12 11:23] VITALS: O2SAT 99
[2023-10-12 21:14] VITALS: BP 132/91; TEMP 97.5; O2SAT 100
[2023-10-12 23:29] VITALS: O2SAT 100
[2023-10-12 23:30] VITALS: O2SAT 99
[2023-10-13 07:53] VITALS: BP 127/93; TEMP 98; O2SAT 100
[2023-10-13 10:00] VITALS: O2SAT 99
[2023-10-13 10:49] VITALS: O2SAT 100
[2023-10-13 19:12] VITALS: BP 98/66; TEMP 97.7; O2SAT 98
[2023-10-13 22:59] VITALS: O2SAT 99
[2023-10-14 07:33] VITALS: BP 107/65; TEMP 98.4; O2SAT 100
[2023-10-14 12:03] VITALS: O2SAT 99
[2023-10-14 19:59] VITALS: BP 94/76; TEMP 97.5; O2SAT 99
[2023-10-14 22:20] VITALS: O2SAT 100
[2023-10-14 22:21] VITALS: O2SAT 100
[2023-10-15 11:12] VITALS: O2SAT 96
[2023-10-15 11:13] VITALS: O2SAT 96
[2023-10-15 20:00] VITALS: BP 101/57; TEMP 98; O2SAT 99
[2023-10-15 23:12] VITALS: O2SAT 99
[2023-10-15 23:13] VITALS: O2SAT 99
[2023-10-16 10:07] VITALS: O2SAT 100
[2023-10-16 19:42] VITALS: BP 98/56; TEMP 97.7; O2SAT 100
[2023-10-16 22:54] VITALS: O2SAT 100
[2023-10-16 22:55] VITALS: O2SAT 100
[2023-10-17 07:55] VITALS: BP 101/70; TEMP 98.4; O2SAT 100
[2023-10-17 10:58] VITALS: O2SAT 100
[2023-10-17 11:30] VITALS: O2SAT 100
[2023-10-17 20:59] VITALS: BP 95/58; TEMP 97.5; O2SAT 100
[2023-10-17 23:07] VITALS: O2SAT 100
[2023-10-18 07:20] VITALS: BP 134/82; TEMP 99.3; O2SAT 97
[2023-10-18 10:34] VITALS: O2SAT 98
[2023-10-18 20:00] VITALS: BP 117/78; TEMP 98.1; O2SAT 99
[2023-10-19] VITALS (7 sets, daily range): BP systolic 99–124; BP diastolic 65–82; TEMP 97.5–98.8; O2SAT 97–100
[2023-10-20 01:10] VITALS: O2SAT 100
[2023-10-20 07:51] VITALS: BP 101/67; TEMP 99.1; O2SAT 98
[2023-10-20 10:56] VITALS: O2SAT 97
[2023-10-20 19:48] VITALS: BP 114/75; TEMP 98; O2SAT 98
[2023-10-20 23:33] VITALS: O2SAT 100
[2023-10-21 07:57] VITALS: BP 116/59; TEMP 99; O2SAT 97
[2023-10-21 10:08] VITALS: O2SAT 99
[2023-10-21 12:32] VITALS: O2SAT 97
[2023-10-21 19:29] VITALS: BP 104/73; TEMP 98.2; O2SAT 100
[2023-10-21 22:47] VITALS: O2SAT 98
[2023-10-22 07:48] VITALS: BP 101/67; TEMP 97.7; O2SAT 99
[2023-10-22 10:04] VITALS: O2SAT 100
[2023-10-22 20:04] VITALS: BP 106/82; TEMP 98.8; O2SAT 97
[2023-10-22 23:29] VITALS: O2SAT 100
[2023-10-23 07:45] VITALS: BP 107/75; TEMP 98.4; O2SAT 100
[2023-10-23 10:15] VITALS: O2SAT 99
[2023-10-23 22:05] VITALS: O2SAT 100
[2023-10-24 08:13] VITALS: BP 106/62; TEMP 97.3; O2SAT 100
[2023-10-24 12:04] VITALS: O2SAT 100; O2SAT 99
[2023-10-24 20:00] VITALS: BP 128/79; TEMP 98.6; O2SAT 99
[2023-10-25 00:15] VITALS: O2SAT 97
[2023-10-25 08:48] VITALS: BP 116/97; TEMP 99; O2SAT 100
[2023-10-25 10:40] VITALS: O2SAT 100
[2023-10-25 16:17] VITALS: O2SAT 100
[2023-10-25 20:57] VITALS: BP 96/65; TEMP 98.2; O2SAT 100
[2023-10-25 23:11] VITALS: O2SAT 100
[2023-10-26 08:12] VITALS: BP 128/53; TEMP 97.9; O2SAT 100
[2023-10-26 10:02] VITALS: O2SAT 99
[2023-10-26 10:03] VITALS: O2SAT 99
[2023-10-26 19:31] VITALS: BP 121/77; TEMP 98.6; O2SAT 100
[2023-10-26 23:13] VITALS: O2SAT 100
[2023-10-27] VITALS (7 sets, daily range): BP systolic 127–128; BP diastolic 73–76; TEMP 97–97.6; O2SAT 100
[2023-10-28 08:26] VITALS: BP 102/56; TEMP 98.8; O2SAT 93
[2023-10-28 10:10] VITALS: O2SAT 97
[2023-10-28 18:05] VITALS: BP 102/56; O2SAT 93
[2023-10-28 20:05] VITALS: BP 102/63; TEMP 97.8; O2SAT 100
[2023-10-28 23:03] VITALS: O2SAT 100
[2023-10-28 23:04] VITALS: O2SAT 100
[2023-10-29 07:22] VITALS: BP 131/94; TEMP 96.7; O2SAT 99
[2023-10-29 11:22] VITALS: O2SAT 100
[2023-10-29 11:23] VITALS: O2SAT 100
[2023-10-29 20:00] VITALS: BP 121/67; TEMP 98.3; O2SAT 99
[2023-10-29 22:16] VITALS: O2SAT 100
[2023-10-29 22:17] VITALS: O2SAT 100
[2023-10-30 07:39] VITALS: BP 127/95; TEMP 98.2; O2SAT 98
[2023-10-30 10:22] VITALS: O2SAT 98
[2023-10-30 20:00] VITALS: BP 128/62; TEMP 98.1; O2SAT 99
[2023-10-30 22:10] VITALS: O2SAT 99
[2023-10-31 07:35] VITALS: BP 100/86; TEMP 98.1; O2SAT 98
[2023-10-31 08:00] LABS: ALBUMIN 2.6 g/dL (3.4-5.0); BILIRUBIN,DIRECT 0.5 mg/dL (0.0-0.2); BILIRUBIN,TOTAL 0.8 mg/dL (0.2-1.0); TOTAL PROTEIN, SERUM 8.8 g/dL (6.4-8.2)
[2023-10-31 10:02] VITALS: O2SAT 98
[2023-10-31 20:04] VITALS: BP 101/59; TEMP 97.3; O2SAT 100
[2023-11-01] VITALS (7 sets, daily range): BP systolic 96–103; BP diastolic 55–65; TEMP 97.4–97.7; O2SAT 98–100
[2023-11-02 07:35] VITALS: BP 92/60; TEMP 98.2; O2SAT 98
[2023-11-02 10:17] VITALS: O2SAT 100; O2SAT 99
[2023-11-02 20:27] VITALS: BP 99/69; TEMP 97.3; O2SAT 100
[2023-11-02 23:14] VITALS: O2SAT 100
[2023-11-03 07:30] VITALS: BP 122/80; TEMP 98.4; O2SAT 98
[2023-11-03 10:05] VITALS: O2SAT 99
[2023-11-03] MEDS: JEVITY 1.2 CAL 1,000 ML BOTTLE GT PRN (17:12)
[2023-11-03 19:24] VITALS: BP 101/63; TEMP 98.1; O2SAT 100
[2023-11-03 22:37] VITALS: O2SAT 100
[2023-11-04 08:00] VITALS: BP 110/57; TEMP 97.7; O2SAT 96
[2023-11-04 11:22] VITALS: O2SAT 99
[2023-11-04 19:23] VITALS: BP 115/77; TEMP 97.7; O2SAT 100
[2023-11-04 23:14] VITALS: O2SAT 100
[2023-11-05 07:39] VITALS: BP 117/80; TEMP 98.6; O2SAT 98
[2023-11-05 10:05] VITALS: O2SAT 98
[2023-11-05 10:09] VITALS: O2SAT 99
[2023-11-05 20:43] VITALS: BP 128/70; TEMP 97.7; O2SAT 100
[2023-11-05 23:10] VITALS: O2SAT 100
[2023-11-06 07:33] VITALS: BP 113/67; TEMP 97.7; O2SAT 99
[2023-11-06 10:20] VITALS: O2SAT 100
[2023-11-06 20:00] VITALS: BP 128/73; TEMP 98.1; O2SAT 99
[2023-11-06 23:20] VITALS: O2SAT 96
[2023-11-07 07:33] VITALS: BP 101/62; TEMP 98.4; O2SAT 98
[2023-11-07 11:18] VITALS: O2SAT 99
[2023-11-07 20:00] VITALS: BP 128/73; TEMP 98.1; O2SAT 99
[2023-11-07 21:25] VITALS: O2SAT 100
[2023-11-07 22:08] VITALS: O2SAT 100
[2023-11-08 07:41] VITALS: BP 117/95; TEMP 98.1; O2SAT 100
[2023-11-08 10:09] VITALS: O2SAT 99
[2023-11-08 11:55] VITALS: O2SAT 100
[2023-11-08 19:58] VITALS: BP 93/80; TEMP 97.9; O2SAT 100
[2023-11-08 23:47] VITALS: O2SAT 100
[2023-11-09 07:41] VITALS: BP 118/87; TEMP 96.7; O2SAT 99
[2023-11-09 10:23] VITALS: O2SAT 100
[2023-11-09 19:28] VITALS: BP 132/88; TEMP 97.9; O2SAT 100
[2023-11-09 23:22] VITALS: O2SAT 100
[2023-11-09 23:23] VITALS: O2SAT 100
[2023-11-10 08:43] VITALS: BP 121/75; TEMP 98.4; O2SAT 100
[2023-11-10 10:33] VITALS: O2SAT 98
[2023-11-10 10:34] VITALS: O2SAT 98
[2023-11-10 19:58] VITALS: BP 100/63; TEMP 98; O2SAT 99
[2023-11-10 23:26] VITALS: O2SAT 99
[2023-11-10 23:27] VITALS: O2SAT 99
[2023-11-11 07:58] VITALS: BP 112/82; TEMP 97.3; O2SAT 99
[2023-11-11 14:20] VITALS: O2SAT 98
[2023-11-11 19:34] VITALS: BP 115/89; TEMP 98.8; O2SAT 99
[2023-11-11 22:02] VITALS: O2SAT 98
[2023-11-12 08:09] VITALS: BP 116/55; TEMP 97.8; O2SAT 99
[2023-11-12 15:34] VITALS: O2SAT 99
[2023-11-12 20:17] VITALS: BP 111/61; TEMP 98.2; O2SAT 100
[2023-11-12 22:42] VITALS: O2SAT 98
[2023-11-12 22:44] VITALS: O2SAT 99
[2023-11-13 08:25] VITALS: BP 100/50; TEMP 99; O2SAT 100
[2023-11-13 10:25] VITALS: O2SAT 97; O2SAT 98
[2023-11-13 20:13] VITALS: BP 120/59; TEMP 98.6; O2SAT 99
[2023-11-13 22:12] VITALS: O2SAT 100
[2023-11-14 08:58] VITALS: BP 134/88; TEMP 97.9; O2SAT 100
[2023-11-14 11:01] VITALS: O2SAT 99
[2023-11-14 20:33] VITALS: BP 104/62; TEMP 97.9; O2SAT 100
[2023-11-14 23:15] VITALS: O2SAT 100
[2023-11-15 07:42] VITALS: BP 96/68; TEMP 97.9; O2SAT 98
[2023-11-15 08:31] VITALS: O2SAT 99
[2023-11-15 11:23] VITALS: O2SAT 99
[2023-11-15] MEDS ORDERED: BISACODYL SUPP (10 MG) 10 MG/SUPP.RECT SUPP.RECT RC PRN (19:00)
[2023-11-15 20:00] VITALS: BP 98/75; TEMP 98.1; O2SAT 97
[2023-11-15 23:28] VITALS: O2SAT 96
[2023-11-16 07:31] VITALS: BP 133/96; TEMP 98.3; O2SAT 99
[2023-11-16] MEDS: OMEPRAZOLE 20 MG CAPSULE.DR GT SCH (09:23)
[2023-11-16 10:10] VITALS: O2SAT 99
[2023-11-16 11:39] VITALS: O2SAT 98
[2023-11-16 19:34] VITALS: BP 118/85; TEMP 98.9; O2SAT 97
[2023-11-16 23:36] VITALS: O2SAT 95
[2023-11-16 23:38] VITALS: O2SAT 95
[2023-11-17 07:44] VITALS: BP 129/74; TEMP 98.2; O2SAT 98
[2023-11-17 10:45] VITALS: O2SAT 98
[2023-11-17 20:11] VITALS: BP 116/58; TEMP 98.5; O2SAT 98
[2023-11-17 20:16] VITALS: O2SAT 98
[2023-11-18 00:27] VITALS: O2SAT 98
[2023-11-18 00:28] VITALS: O2SAT 99
[2023-11-18 07:55] VITALS: BP 155/61; TEMP 98.6; O2SAT 99
[2023-11-18 10:51] VITALS: O2SAT 99
[2023-11-18 11:41] VITALS: O2SAT 100
[2023-11-18 23:26] VITALS: O2SAT 100
[2023-11-19 07:56] VITALS: BP 103/61; TEMP 98.6; O2SAT 100
[2023-11-19 10:39] VITALS: O2SAT 100
[2023-11-19 19:32] VITALS: BP 127/75; TEMP 98.1; O2SAT 100
[2023-11-19 23:17] VITALS: O2SAT 100
[2023-11-20 08:16] VITALS: BP 107/62; TEMP 97.5; O2SAT 100
[2023-11-20 10:13] VITALS: O2SAT 100
[2023-11-20 20:03] VITALS: BP 108/56; TEMP 98.2; O2SAT 97
[2023-11-21 03:12] VITALS: O2SAT 100
[2023-11-21 08:00] VITALS: BP 130/73; TEMP 97.7; O2SAT 66
[2023-11-21 10:07] VITALS: O2SAT 99
[2023-11-21 10:08] VITALS: O2SAT 100
[2023-11-21 20:00] VITALS: BP 108/66; TEMP 98.1; O2SAT 99
[2023-11-21 23:03] VITALS: O2SAT 98
[2023-11-22 08:00] VITALS: BP 122/77; TEMP 98.2; O2SAT 99
[2023-11-22 10:01] VITALS: O2SAT 99
[2023-11-22 11:40] VITALS: O2SAT 99
[2023-11-22 20:09] VITALS: BP 101/64; TEMP 97.7; O2SAT 97
[2023-11-22 23:48] VITALS: O2SAT 100
[2023-11-23 07:38] VITALS: BP 99/58; TEMP 98.2; O2SAT 100
[2023-11-23 10:14] VITALS: O2SAT 98; O2SAT 99
[2023-11-23 23:43] VITALS: O2SAT 100
[2023-11-23 23:44] VITALS: O2SAT 100
[2023-11-24 07:30] VITALS: BP 79/48; TEMP 97.9; O2SAT 99
[2023-11-24 10:01] VITALS: O2SAT 98
[2023-11-24 10:02] VITALS: O2SAT 98
[2023-11-24 21:15] VITALS: BP 99/63; TEMP 98.2; O2SAT 100
[2023-11-24 23:03] VITALS: O2SAT 96
[2023-11-24 23:12] VITALS: O2SAT 98
[2023-11-25 00:08] VITALS: BP 88/45; TEMP 98.1; O2SAT 97
[2023-11-25] MEDS ORDERED: ONDA-97 GT (08:12)
[2023-11-25] MEDS ORDERED: LACT-209 GT (08:12)
[2023-11-25] MEDS ORDERED: OMEP20CA15 GT (08:12)
[2024-02-20] MEDS ORDERED: TUBERCULIN,PURIF.PROT.DERIV. 5 TU/0.1 ML VIAL ID SCH (09:00)
== END 2023-12-01 08:00 | disposition short-term general hospital (02) | DRG 207 ==
LOC: UNDOADMIN → SA
PROVIDERS: ADMIT Internal Medicine; ATTEND Internal Medicine
PROC: 5A1955Z Respiratory Ventilation, Greater than 96 Consecutive Hours (ICD-10-PCS; principal; 2023-06-19)
DX: J96.10 Chronic respiratory failure, unspecified whether with hypoxia or hypercapnia (principal); R53.2 Functional quadriplegia; Z99.11 Dependence on respirator [ventilator] status; R40.3 Persistent vegetative state; D68.59 Other primary thrombophilia; G93.1 Anoxic brain damage, not elsewhere classified; K80.21 Calculus of gallbladder without cholecystitis with obstruction; Z43.1 Encounter for attention to gastrostomy; J44.9 Chronic obstructive pulmonary disease, unspecified; I48.91 Unspecified atrial fibrillation; R13.10 Dysphagia, unspecified; K21.9 Gastro-esophageal reflux disease without esophagitis; Z79.01 Long term (current) use of anticoagulants; I69.398 Other sequelae of cerebral infarction; D63.8 Anemia in other chronic diseases classified elsewhere; M24.572 Contracture, left ankle; M24.571 Contracture, right ankle; Z93.0 Tracheostomy status; L89.899 Pressure ulcer of other site, unspecified stage; E11.9 Type 2 diabetes mellitus without complications; K56.41 Fecal impaction; N21.0 Calculus in bladder
CPT/HCPCS: 31720; 36415; 36600; 74018; 80048-TC; 80076-TC; 80162-TC; 82803-TC; 85025-TC; 85610-TC; 94003-TC; 94640-TC; 94760-TC; 94762-TC; 94799-TC; 99082-TC; A4623; A7526

== ENCOUNTER 2023-08-27 07:25 | Day surgery (SDC) | payer MEDICARE, OTHER | END 2023-08-27 11:30 | LOC: SURGERY 07:25 | PROVIDERS: ATTEND Internal Medicine Gastroenterology | DX: K94.23 Gastrostomy malfunction (principal) ==

== ENCOUNTER 2023-11-25 00:23 | Inpatient (IN) | payer MEDICARE, OTHER ==
[~2023-11-25] VITALS: Ht 170.2 cm; Wt 67.1 kg
[2023-11-25] VITALS (36 sets, daily range): BP systolic 87–114; BP diastolic 53–77; TEMP 98.5–99.1; O2SAT 95–100
[2023-11-25] MEDS: IV NS 0.9% 1,000 ML IV ONE ×2 (00:50→14:19)
[2023-11-25 00:58] LABS: BASOPHILS % (AUTO) 0.4 % (0.0-2.0); EOSINOPHILS # (AUTO) 0.3 K/uL (0.0-0.7); EOSINOPHILS % (AUTO) 3.3 % (0.0-6.0); HEMATOCRIT 37 % (39-51); HEMOGLOBIN 12.2 g/dL (13.5-17.5); LYMPHOCYTES % (AUTO) 12.2 % (20.0-44.0); MEAN CORPUSCULAR HEMOGLOBIN 31 PG (26.0-33.0); MEAN CORPUSCULAR HGB CONC 33 g/dl (31.0-36.0); MEAN CORPUSCULAR VOLUME 94 fL (80-96); MONOCYTES # (AUTO) 0.8 K/uL (0.1-1.30); MONOCYTES % (AUTO) 9.1 % (2.0-12.0); NEUTROPHILS # (AUTO) 6.3 K/uL (1.8-8.9); PLATELET COUNT (AUTO) 306 K/uL (150-450); RED BLOOD CELL COUNT(AUTO) 3.91 MIL/uL (4.5-6.0); RED CELL DISTRIBUTION WIDTH 15.6 % (11.5-15.0); WHITE BLOOD COUNT (AUTO) 8.4 K/uL (4.3-11.0)
[2023-11-25 01:12] LABS: INR 1.14 (0.91-1.10); PARTIAL THROMBOPLASTIN TIME 31.3 SEC (24.3-34.3)
[2023-11-25 01:30] LABS: CALCIUM, SERUM 8.7 mg/dL (8.5-10.1); POTASSIUM 4.2 mmol/L (3.5-5.1)
[2023-11-25 01:35] LABS: ALBUMIN 2.5 g/dL (3.4-5.0); BILIRUBIN,TOTAL 1.2 mg/dL (0.2-1.0); TOTAL PROTEIN, SERUM 8.6 g/dL (6.4-8.2)
[2023-11-25] MEDS ORDERED: CT SWABBABLE VALVE TRANS SET 1 EA INFUS.SET MC ONE (02:32)
[2023-11-25] MEDS ORDERED: IOHEXOL-350 100 ML VIAL IV ONE ×2 (02:32→02:34)
[2023-11-25] MEDS ORDERED: IV NS 0.9% 250 ML IV ONE (02:33)
[2023-11-25] MEDS ORDERED: Z GUARD REMEDY 4 OZ OINT TP PRN (06:30)
[2023-11-25] MEDS ORDERED: ZOLPIDEM TARTRATE 5 MG TABLET PO PRN (06:30)
[2023-11-25] MEDS ORDERED: MAG HYDROX/AL HYDROX/SIMETH 30 ML UDC PO PRN (06:30)
[2023-11-25] MEDS ORDERED: MAGNESIUM HYDROXIDE 30 ML UDC PO PRN (06:30)
[2023-11-25] MEDS ORDERED: ACETAMINOPHEN 325 MG TABLET PO PRN (06:30)
[2023-11-25] MEDS: IPRATROPIUM NEB FS 0.5 MG/2.5 ML AMPUL.NEB NEB SCH ×2 (07:58→12:53)
[2023-11-25] MEDS: ALBUTEROL FS 2.5 MG/3 ML VIAL.NEB NEB SCH (07:58)
[2023-11-25] MEDS ORDERED: ONDA-97 GT (08:12)
[2023-11-25] MEDS ORDERED: LACT-209 GT (08:12)
[2023-11-25] MEDS ORDERED: OMEP20CA15 GT (08:12)
[2023-11-25] MEDS: ENOXAPARIN SODIUM 40 MG/0.4 ML DISP.SYRIN SQ SCH (09:00)
[2023-11-25] MEDS: PANTOPRAZOLE 40 MG VIAL IV SCH (09:12)
[2023-11-25] MEDS: LEVOFLOXACIN 500 MG /D5W 100ML 500 MG in PREMIX 1 EA IV SCH (09:12)
[2023-11-25 09:55] LABS: BASOPHILS % (AUTO) 0.4 % (0.0-2.0); EOSINOPHILS # (AUTO) 0.2 K/uL (0.0-0.7); EOSINOPHILS % (AUTO) 2.1 % (0.0-6.0); HEMATOCRIT 36 % (39-51); HEMOGLOBIN 11.6 g/dL (13.5-17.5); LYMPHOCYTES # (AUTO) 0.8 K/uL (0.8-4.8); LYMPHOCYTES % (AUTO) 6.7 % (20.0-44.0); MEAN CORPUSCULAR HEMOGLOBIN 31 PG (26.0-33.0); MEAN CORPUSCULAR HGB CONC 33 g/dl (31.0-36.0); MEAN CORPUSCULAR VOLUME 94 fL (80-96); MONOCYTES # (AUTO) 0.9 K/uL (0.1-1.30); MONOCYTES % (AUTO) 7.2 % (2.0-12.0); NEUTROPHILS % (AUTO) 83.6 % (43.0-81.0); PLATELET COUNT (AUTO) 287 K/uL (150-450); RED BLOOD CELL COUNT(AUTO) 3.81 MIL/uL (4.5-6.0); RED CELL DISTRIBUTION WIDTH 16.1 % (11.5-15.0); WHITE BLOOD COUNT (AUTO) 11.9 K/uL (4.3-11.0)
[2023-11-25 10:13] LABS: LACTIC ACID 1.5 mmol/L (0.4-2.0)
[2023-11-25 10:21] LABS: ALBUMIN 2.4 g/dL (3.4-5.0); BILIRUBIN,DIRECT 0.8 mg/dL (0.0-0.2); BILIRUBIN,TOTAL 1.7 mg/dL (0.2-1.0); CREATININE 0.9 mg/dL (0.6-1.3); MAGNESIUM 2.2 mg/dL (1.8-2.4); PHOSPHORUS 3.7 mg/dL (2.5-4.9); POTASSIUM 4.4 mmol/L (3.5-5.1); TOTAL PROTEIN, SERUM 7.9 g/dL (6.4-8.2)
[2023-11-25] MEDS: ALPRAZOLAM 0.5 MG TABLET GT SCH (10:57)
[2023-11-25] MEDS ORDERED: MAG HYDROX/AL HYDROX/SIMETH 30 ML UDC GT PRN (11:00)
[2023-11-25] MEDS ORDERED: LACTULOSE 10 G/15 ML UDC (PYXIS) GT PRN (11:00)
[2023-11-25] MEDS ORDERED: BISACODYL SUPP (10 MG) 10 MG/SUPP.RECT SUPP.RECT RC PRN (11:00)
[2023-11-25] MEDS ORDERED: IPRATROPIUM NEB FS 0.5 MG/2.5 ML AMPUL.NEB NEB PRN (11:00)
[2023-11-25] MEDS ORDERED: POLYVINYL ALCOHOL 15 ML BOTTLE EACHEYE PRN (11:00)
[2023-11-25] MEDS ORDERED: MAGNESIUM HYDROXIDE 30 ML UDC GT PRN (11:00)
[2023-11-25 11:08] LABS: THYROID STIMULATING HORMONE 0.934 uIU/mL (0.358-3.74)
[2023-11-25] MEDS: FUROSEMIDE 40 MG TABLET PO SCH (11:16)
[2023-11-25] MEDS: ASCORBIC ACID 500 MG TABLET GT SCH (11:16)
[2023-11-25] MEDS: DOCUSATE SODIUM LIQ 100 MG/10 ML UDC NG SCH (11:16)
[2023-11-25] MEDS: ALBUTEROL HALF STRENGTH 1.25 MG/3 ML VIAL.NEB IH SCH (12:52)
[2023-11-25] MEDS: CEFEPIME 2 GM in IV D5W 100 ML IV SCH (12:54)
[2023-11-25] MEDS ORDERED: DIGOXIN ELIX UDC 0.25 MG/5 ML UDC GT SCH (13:00)
[2023-11-25] MEDS ORDERED: NOREPINEPHRINE 8 MG in IV D5W 242 ML IV PRN ×2 (14:00→14:30)
[2023-11-25 14:42] LABS: BASOPHILS % (AUTO) 0.3 % (0.0-2.0); EOSINOPHILS # (AUTO) 0.2 K/uL (0.0-0.7); EOSINOPHILS % (AUTO) 1.5 % (0.0-6.0); HEMATOCRIT 35 % (39-51); HEMOGLOBIN 11.1 g/dL (13.5-17.5); LYMPHOCYTES % (AUTO) 8.2 % (20.0-44.0); MEAN CORPUSCULAR HEMOGLOBIN 31 PG (26.0-33.0); MEAN CORPUSCULAR HGB CONC 32 g/dl (31.0-36.0); MEAN CORPUSCULAR VOLUME 94 fL (80-96); MONOCYTES % (AUTO) 8.2 % (2.0-12.0); NEUTROPHILS # (AUTO) 9.7 K/uL (1.8-8.9); NEUTROPHILS % (AUTO) 81.8 % (43.0-81.0); PLATELET COUNT (AUTO) 293 K/uL (150-450); RED BLOOD CELL COUNT(AUTO) 3.66 MIL/uL (4.5-6.0); WHITE BLOOD COUNT (AUTO) 11.9 K/uL (4.3-11.0)
[2023-11-25] MEDS: HUM PROTHROMBIN CPLX LANS IV ONE (15:32)
[2023-11-25] MEDS: WATER FOR INJECTION STERILE IV ONE (15:32)
[2023-11-25] MEDS: DIGOXIN 0.125 MG TABLET GT SCH (16:34)
[2023-11-25 18:25] LABS: HEMATOCRIT 35 % (39-51); HEMOGLOBIN 11.3 g/dL (13.5-17.5); MEAN CORPUSCULAR HEMOGLOBIN 31 PG (26.0-33.0); MEAN CORPUSCULAR HGB CONC 33 g/dl (31.0-36.0); MEAN CORPUSCULAR VOLUME 94 fL (80-96); PLATELET COUNT (AUTO) 267 K/uL (150-450); RED BLOOD CELL COUNT(AUTO) 3.69 MIL/uL (4.5-6.0); RED CELL DISTRIBUTION WIDTH 15.9 % (11.5-15.0); WHITE BLOOD COUNT (AUTO) 13.1 K/uL (4.3-11.0)
[2023-11-25] MEDS: CHLORHEXIDINE GLUCONATE 15 ML UDC MM SCH (20:50)
[2023-11-26] VITALS (30 sets, daily range): BP systolic 81–132; BP diastolic 55–109; TEMP 97.7–98.8; O2SAT 95–100
[2023-11-26 04:51] LABS: BASOPHILS % (AUTO) 0.3 % (0.0-2.0); EOSINOPHILS # (AUTO) 0.1 K/uL (0.0-0.7); EOSINOPHILS % (AUTO) 1.5 % (0.0-6.0); HEMATOCRIT 30 % (39-51); HEMOGLOBIN 9.9 g/dL (13.5-17.5); LYMPHOCYTES % (AUTO) 10.3 % (20.0-44.0); MEAN CORPUSCULAR HEMOGLOBIN 31 PG (26.0-33.0); MEAN CORPUSCULAR HGB CONC 33 g/dl (31.0-36.0); MEAN CORPUSCULAR VOLUME 94 fL (80-96); MONOCYTES # (AUTO) 0.9 K/uL (0.1-1.30); MONOCYTES % (AUTO) 9.1 % (2.0-12.0); NEUTROPHILS # (AUTO) 7.5 K/uL (1.8-8.9); NEUTROPHILS % (AUTO) 78.8 % (43.0-81.0); PLATELET COUNT (AUTO) 264 K/uL (150-450); RED BLOOD CELL COUNT(AUTO) 3.16 MIL/uL (4.5-6.0); RED CELL DISTRIBUTION WIDTH 15.8 % (11.5-15.0); WHITE BLOOD COUNT (AUTO) 9.5 K/uL (4.3-11.0)
[2023-11-26 05:09] LABS: D-DIMER 0.69 mg/L(FEU (0.17-0.50); INR 1.15 (0.91-1.10); PARTIAL THROMBOPLASTIN TIME 29.5 SEC (24.3-34.3); PROTHROMBIN TIME 12.1 SECS (9.2-11.1)
[2023-11-26 05:16] LABS: CALCIUM, SERUM 8.9 mg/dL (8.5-10.1)
[2023-11-26 06:37] LABS: ABG BASE EXCESS 6.2 mmol/L; ABG OXYGEN SATURATION 94.8 % (92.0-98.5); ABG PH 7.429 (7.350-7.450); ABG PO2 75.9 mmHg (75.0-100.0); ABG TOTAL HEMOGLOBIN 13.7 G/dL (13.5-18.0); COHb 0.6 % (0.5-1.5); MetHb 0.3 % (0.0-1.5); O2Hb 93.9 % (94.0-97.0); SITE, ABG Left Radial
[2023-11-26] MEDS ORDERED: ZOLPIDEM TARTRATE 5 MG TABLET GT PRN (09:49)
[2023-11-26 11:04] LABS: THYROID STIMULATING HORMONE 0.717 uIU/mL (0.358-3.74)
[2023-11-26] MEDS ORDERED: DIGOXIN 0.125 MG TABLET GT SCH (13:00)
[2023-11-26] MEDS: JEVITY 1.2 CAL 1,000 ML BOTTLE GT SCH (18:06)
[2023-11-27] VITALS (7 sets, daily range): BP systolic 104–123; BP diastolic 68–82; TEMP 97.8–98.6; O2SAT 98–100
[2023-11-27 07:04] LABS: BASOPHILS % (AUTO) 0.2 % (0.0-2.0); EOSINOPHILS # (AUTO) 0.3 K/uL (0.0-0.7); EOSINOPHILS % (AUTO) 2.7 % (0.0-6.0); HEMATOCRIT 32 % (39-51); HEMOGLOBIN 10.3 g/dL (13.5-17.5); LYMPHOCYTES # (AUTO) 0.7 K/uL (0.8-4.8); LYMPHOCYTES % (AUTO) 6.6 % (20.0-44.0); MEAN CORPUSCULAR HEMOGLOBIN 31 PG (26.0-33.0); MEAN CORPUSCULAR HGB CONC 33 g/dl (31.0-36.0); MEAN CORPUSCULAR VOLUME 94 fL (80-96); MONOCYTES # (AUTO) 0.9 K/uL (0.1-1.30); MONOCYTES % (AUTO) 8.7 % (2.0-12.0); NEUTROPHILS # (AUTO) 8.5 K/uL (1.8-8.9); NEUTROPHILS % (AUTO) 81.8 % (43.0-81.0); PLATELET COUNT (AUTO) 279 K/uL (150-450); RED BLOOD CELL COUNT(AUTO) 3.37 MIL/uL (4.5-6.0); RED CELL DISTRIBUTION WIDTH 15.8 % (11.5-15.0); WHITE BLOOD COUNT (AUTO) 10.4 K/uL (4.3-11.0)
[2023-11-27 07:38] LABS: ALBUMIN 2.4 g/dL (3.4-5.0); BILIRUBIN,TOTAL 1.6 mg/dL (0.2-1.0); CALCIUM, SERUM 8.9 mg/dL (8.5-10.1); CREATININE 1.1 mg/dL (0.6-1.3); MAGNESIUM 2.2 mg/dL (1.8-2.4); PHOSPHORUS 3.4 mg/dL (2.5-4.9); POTASSIUM 3.8 mmol/L (3.5-5.1); TOTAL PROTEIN, SERUM 8.2 g/dL (6.4-8.2)
[2023-11-27] MEDS: FUROSEMIDE 40 MG TABLET GT SCH (08:47)
[2023-11-27] MEDS: APIXABAN 5 MG TABLET GT SCH (10:00)
[2023-11-28] VITALS (7 sets, daily range): BP systolic 90–122; BP diastolic 59–89; TEMP 97.8–99.1; O2SAT 95–100
[2023-11-28 06:44] LABS: CALCIUM, SERUM 8.6 mg/dL (8.5-10.1); CREATININE 0.9 mg/dL (0.6-1.3); POTASSIUM 3.7 mmol/L (3.5-5.1)
[2023-11-28] MEDS: PANTOPRAZOLE 40 MG/PACK PACK NG SCH (08:57)
[2023-11-28] MEDS: ONDANSETRON HCL/PF 4 MG/2 ML VIAL IVP PRN (21:44)
[2023-11-29] VITALS (7 sets, daily range): BP systolic 92–125; BP diastolic 55–84; TEMP 97.9–98.8; O2SAT 100
[2023-11-29 07:02] LABS: BASOPHILS % (AUTO) 0.2 % (0.0-2.0); EOSINOPHILS % (AUTO) 0.2 % (0.0-6.0); HEMATOCRIT 35 % (39-51); HEMOGLOBIN 11.3 g/dL (13.5-17.5); LYMPHOCYTES # (AUTO) 0.8 K/uL (0.8-4.8); LYMPHOCYTES % (AUTO) 5.8 % (20.0-44.0); MEAN CORPUSCULAR HEMOGLOBIN 31 PG (26.0-33.0); MEAN CORPUSCULAR HGB CONC 33 g/dl (31.0-36.0); MEAN CORPUSCULAR VOLUME 95 fL (80-96); MONOCYTES # (AUTO) 1.2 K/uL (0.1-1.30); MONOCYTES % (AUTO) 8.6 % (2.0-12.0); NEUTROPHILS % (AUTO) 85.2 % (43.0-81.0); PLATELET COUNT (AUTO) 312 K/uL (150-450); RED BLOOD CELL COUNT(AUTO) 3.64 MIL/uL (4.5-6.0); WHITE BLOOD COUNT (AUTO) 14.1 K/uL (4.3-11.0)
[2023-11-29 07:04] LABS: CALCIUM, SERUM 9.2 mg/dL (8.5-10.1); CREATININE 1.1 mg/dL (0.6-1.3); POTASSIUM 4.2 mmol/L (3.5-5.1)
[2023-11-29] MEDS: APIXABAN 2.5 MG TABLET PO SCH (11:51)
[2023-11-30] VITALS (8 sets, daily range): BP systolic 86–119; BP diastolic 58–81; TEMP 98.1–99.9; O2SAT 92–100
[2023-11-30 06:54] LABS: BASOPHILS % (AUTO) 0.1 % (0.0-2.0); EOSINOPHILS # (AUTO) 0.1 K/uL (0.0-0.7); HEMATOCRIT 33 % (39-51); HEMOGLOBIN 10.9 g/dL (13.5-17.5); LYMPHOCYTES # (AUTO) 0.7 K/uL (0.8-4.8); LYMPHOCYTES % (AUTO) 4.4 % (20.0-44.0); MEAN CORPUSCULAR HEMOGLOBIN 31 PG (26.0-33.0); MEAN CORPUSCULAR HGB CONC 33 g/dl (31.0-36.0); MEAN CORPUSCULAR VOLUME 94 fL (80-96); MONOCYTES % (AUTO) 6.8 % (2.0-12.0); NEUTROPHILS # (AUTO) 13.2 K/uL (1.8-8.9); NEUTROPHILS % (AUTO) 87.7 % (43.0-81.0); PLATELET COUNT (AUTO) 318 K/uL (150-450); RED BLOOD CELL COUNT(AUTO) 3.54 MIL/uL (4.5-6.0); RED CELL DISTRIBUTION WIDTH 16.2 % (11.5-15.0); WHITE BLOOD COUNT (AUTO) 15.1 K/uL (4.3-11.0)
[2023-11-30 07:06] LABS: CALCIUM, SERUM 8.5 mg/dL (8.5-10.1); CREATININE 1.1 mg/dL (0.6-1.3); POTASSIUM 3.8 mmol/L (3.5-5.1)
[2023-11-30 07:45] LABS: DIGOXIN 0.72 ng/mL (0.90-2.00)
[2023-11-30] MEDS: ACETAMINOPHEN 650 MG/20.3 ML UDC GT PRN (21:43)
[2023-12-01] VITALS: BP 91/66; TEMP 98.3; O2SAT 100
[2023-12-01 04:00] VITALS: BP 100/65; TEMP 98.4; O2SAT 100
[2023-12-01 06:44] LABS: CALCIUM, SERUM 9.6 mg/dL (8.5-10.1); POTASSIUM 3.6 mmol/L (3.5-5.1)
[2023-12-01 06:49] LABS: BASOPHILS % (AUTO) 0.2 % (0.0-2.0); EOSINOPHILS # (AUTO) 0.2 K/uL (0.0-0.7); EOSINOPHILS % (AUTO) 1.9 % (0.0-6.0); HEMATOCRIT 33 % (39-51); HEMOGLOBIN 10.8 g/dL (13.5-17.5); LYMPHOCYTES # (AUTO) 1.1 K/uL (0.8-4.8); LYMPHOCYTES % (AUTO) 9.9 % (20.0-44.0); MEAN CORPUSCULAR HEMOGLOBIN 31 PG (26.0-33.0); MEAN CORPUSCULAR HGB CONC 33 g/dl (31.0-36.0); MEAN CORPUSCULAR VOLUME 95 fL (80-96); MONOCYTES # (AUTO) 0.9 K/uL (0.1-1.30); MONOCYTES % (AUTO) 8.2 % (2.0-12.0); NEUTROPHILS # (AUTO) 9.2 K/uL (1.8-8.9); NEUTROPHILS % (AUTO) 79.8 % (43.0-81.0); PLATELET COUNT (AUTO) 321 K/uL (150-450); RED BLOOD CELL COUNT(AUTO) 3.46 MIL/uL (4.5-6.0); RED CELL DISTRIBUTION WIDTH 16.1 % (11.5-15.0); WHITE BLOOD COUNT (AUTO) 11.5 K/uL (4.3-11.0)
[2023-12-01 08:00] VITALS: BP 148/90; TEMP 97.4; O2SAT 99
[2023-12-01 12:00] VITALS: BP 145/82; TEMP 96.9; O2SAT 100
[2023-12-01 16:00] VITALS: BP 138/74; TEMP 97.9; O2SAT 100
[2023-12-01 20:00] VITALS: BP 96/70; TEMP 98.3; O2SAT 97
[2023-12-02] VITALS (8 sets, daily range): BP systolic 106–142; BP diastolic 70–98; TEMP 97.4–98.7; O2SAT 98–100
[2023-12-02 06:43] LABS: BASOPHILS % (AUTO) 0.4 % (0.0-2.0); EOSINOPHILS # (AUTO) 0.3 K/uL (0.0-0.7); EOSINOPHILS % (AUTO) 2.5 % (0.0-6.0); HEMATOCRIT 34 % (39-51); HEMOGLOBIN 11.1 g/dL (13.5-17.5); LYMPHOCYTES # (AUTO) 0.9 K/uL (0.8-4.8); LYMPHOCYTES % (AUTO) 8.9 % (20.0-44.0); MEAN CORPUSCULAR HEMOGLOBIN 31 PG (26.0-33.0); MEAN CORPUSCULAR HGB CONC 33 g/dl (31.0-36.0); MEAN CORPUSCULAR VOLUME 95 fL (80-96); MONOCYTES # (AUTO) 0.8 K/uL (0.1-1.30); MONOCYTES % (AUTO) 7.9 % (2.0-12.0); NEUTROPHILS # (AUTO) 8.5 K/uL (1.8-8.9); NEUTROPHILS % (AUTO) 80.3 % (43.0-81.0); PLATELET COUNT (AUTO) 343 K/uL (150-450); RED BLOOD CELL COUNT(AUTO) 3.58 MIL/uL (4.5-6.0); WHITE BLOOD COUNT (AUTO) 10.6 K/uL (4.3-11.0)
[2023-12-02 06:52] LABS: CALCIUM, SERUM 8.4 mg/dL (8.5-10.1); CREATININE 0.9 mg/dL (0.6-1.3)
[2023-12-03] VITALS (7 sets, daily range): BP systolic 99–158; BP diastolic 63–91; TEMP 97.2–99.3; O2SAT 100
[2023-12-03 07:11] LABS: BASOPHILS % (AUTO) 0.4 % (0.0-2.0); EOSINOPHILS # (AUTO) 0.3 K/uL (0.0-0.7); HEMATOCRIT 35 % (39-51); HEMOGLOBIN 11.6 g/dL (13.5-17.5); LYMPHOCYTES # (AUTO) 1.1 K/uL (0.8-4.8); LYMPHOCYTES % (AUTO) 11.4 % (20.0-44.0); MEAN CORPUSCULAR HEMOGLOBIN 31 PG (26.0-33.0); MEAN CORPUSCULAR HGB CONC 33 g/dl (31.0-36.0); MEAN CORPUSCULAR VOLUME 94 fL (80-96); MONOCYTES # (AUTO) 0.7 K/uL (0.1-1.30); MONOCYTES % (AUTO) 6.7 % (2.0-12.0); NEUTROPHILS # (AUTO) 7.8 K/uL (1.8-8.9); NEUTROPHILS % (AUTO) 78.5 % (43.0-81.0); PLATELET COUNT (AUTO) 369 K/uL (150-450); RED BLOOD CELL COUNT(AUTO) 3.69 MIL/uL (4.5-6.0); RED CELL DISTRIBUTION WIDTH 15.8 % (11.5-15.0); WHITE BLOOD COUNT (AUTO) 9.9 K/uL (4.3-11.0)
[2023-12-03 07:43] LABS: CALCIUM, SERUM 9.6 mg/dL (8.5-10.1); CREATININE 0.9 mg/dL (0.6-1.3); POTASSIUM 4.3 mmol/L (3.5-5.1)
[2023-12-04] VITALS (7 sets, daily range): BP systolic 90–142; BP diastolic 56–90; TEMP 98–98.4; O2SAT 99–100
[2023-12-04 07:00] LABS: BASOPHILS % (AUTO) 0.3 % (0.0-2.0); EOSINOPHILS # (AUTO) 0.3 K/uL (0.0-0.7); EOSINOPHILS % (AUTO) 2.4 % (0.0-6.0); HEMATOCRIT 34 % (39-51); HEMOGLOBIN 11.2 g/dL (13.5-17.5); LYMPHOCYTES # (AUTO) 1.1 K/uL (0.8-4.8); LYMPHOCYTES % (AUTO) 10.2 % (20.0-44.0); MEAN CORPUSCULAR HEMOGLOBIN 31 PG (26.0-33.0); MEAN CORPUSCULAR HGB CONC 33 g/dl (31.0-36.0); MEAN CORPUSCULAR VOLUME 95 fL (80-96); MONOCYTES # (AUTO) 0.8 K/uL (0.1-1.30); MONOCYTES % (AUTO) 7.7 % (2.0-12.0); NEUTROPHILS # (AUTO) 8.4 K/uL (1.8-8.9); NEUTROPHILS % (AUTO) 79.4 % (43.0-81.0); PLATELET COUNT (AUTO) 373 K/uL (150-450); RED BLOOD CELL COUNT(AUTO) 3.63 MIL/uL (4.5-6.0); WHITE BLOOD COUNT (AUTO) 10.6 K/uL (4.3-11.0)
[2023-12-04 07:19] LABS: CALCIUM, SERUM 8.6 mg/dL (8.5-10.1); CREATININE 0.8 mg/dL (0.6-1.3)
[2023-12-05] VITALS (7 sets, daily range): BP systolic 101–112; BP diastolic 49–87; TEMP 97.1–99; O2SAT 100
[2023-12-05 06:47] LABS: BASOPHILS # (AUTO) 0.1 K/uL (0.0-0.2); BASOPHILS % (AUTO) 0.5 % (0.0-2.0); EOSINOPHILS # (AUTO) 0.2 K/uL (0.0-0.7); EOSINOPHILS % (AUTO) 2.6 % (0.0-6.0); HEMATOCRIT 36 % (39-51); HEMOGLOBIN 11.5 g/dL (13.5-17.5); LYMPHOCYTES % (AUTO) 10.4 % (20.0-44.0); MEAN CORPUSCULAR HEMOGLOBIN 31 PG (26.0-33.0); MEAN CORPUSCULAR HGB CONC 33 g/dl (31.0-36.0); MEAN CORPUSCULAR VOLUME 94 fL (80-96); MONOCYTES # (AUTO) 0.8 K/uL (0.1-1.30); MONOCYTES % (AUTO) 8.6 % (2.0-12.0); NEUTROPHILS # (AUTO) 7.3 K/uL (1.8-8.9); NEUTROPHILS % (AUTO) 77.9 % (43.0-81.0); PLATELET COUNT (AUTO) 349 K/uL (150-450); RED BLOOD CELL COUNT(AUTO) 3.78 MIL/uL (4.5-6.0); RED CELL DISTRIBUTION WIDTH 15.9 % (11.5-15.0); WHITE BLOOD COUNT (AUTO) 9.4 K/uL (4.3-11.0)
[2023-12-05 07:05] LABS: CREATININE 0.8 mg/dL (0.6-1.3)
[2023-12-05] MEDS: JEVITY 1.2 CAL 1,000 ML BOTTLE GT PRN (18:54)
[2023-12-05] MEDS ORDERED: JEVITY 1.2 CAL 1,000 ML BOTTLE GT PRN (19:00)
[2023-12-06] VITALS (7 sets, daily range): BP systolic 97–128; BP diastolic 63–81; TEMP 97.7–98.6; O2SAT 100
[2023-12-07] VITALS (7 sets, daily range): BP systolic 104–131; BP diastolic 72–87; TEMP 97.7–99; O2SAT 95–100
[2023-12-08] VITALS: BP 116/70; TEMP 98.1; O2SAT 100
[2023-12-08 04:00] VITALS: BP 118/74; TEMP 98.5; O2SAT 99
[2023-12-08 07:31] VITALS: O2SAT 100
[2023-12-08 08:00] VITALS: BP 107/75; TEMP 98.2; O2SAT 100
[2023-12-08 12:05] VITALS: BP 108/66; TEMP 97.9; O2SAT 100
== END 2023-12-08 17:14 | DRG 207 ==
LOC: ER 00:32 → TELE1 06:19 → ICU 13:58 → TELE-TD 11-26 17:30 → TELE1 11-27 10:27
PROVIDERS: ADMIT Nurse Practitioner Acute Care
PROC: 5A1955Z Respiratory Ventilation, Greater than 96 Consecutive Hours (ICD-10-PCS; principal; 2023-11-25)
PROC: 05HC33Z Insertion of Infusion Device into Left Basilic Vein, Percutaneous Approach (ICD-10-PCS; 2023-11-25)
PROC: 30233K1 Transfusion of Nonautologous Frozen Plasma into Peripheral Vein, Percutaneous Approach (ICD-10-PCS; 2023-11-25)
DX: J95.01 Hemorrhage from tracheostomy stoma (principal); G93.41 Metabolic encephalopathy; J15.69 Pneumonia due to other Gram-negative bacteria; J15.9 Unspecified bacterial pneumonia; J69.0 Pneumonitis due to inhalation of food and vomit; J96.20 Acute and chronic respiratory failure, unspecified whether with hypoxia or hypercapnia; Z99.11 Dependence on respirator [ventilator] status; D68.59 Other primary thrombophilia; I48.20 Chronic atrial fibrillation, unspecified; G93.1 Anoxic brain damage, not elsewhere classified; R47.01 Aphasia; Y84.8 Other medical procedures as the cause of abnormal reaction of the patient, or of later complication, without mention of misadventure at the time of the procedure; Y92.129 Unspecified place in nursing home as the place of occurrence of the external cause; I11.0 Hypertensive heart disease with heart failure; I50.9 Heart failure, unspecified; R13.10 Dysphagia, unspecified; K21.9 Gastro-esophageal reflux disease without esophagitis; E11.9 Type 2 diabetes mellitus without complications; J45.909 Unspecified asthma, uncomplicated; G35 Multiple sclerosis; Z98.890 Other specified postprocedural states; Z79.51 Long term (current) use of inhaled steroids; Z79.01 Long term (current) use of anticoagulants; Z79.899 Other long term (current) drug therapy; Z79.82 Long term (current) use of aspirin; D63.8 Anemia in other chronic diseases classified elsewhere; I27.20 Pulmonary hypertension, unspecified; K80.20 Calculus of gallbladder without cholecystitis without obstruction; R26.9 Unspecified abnormalities of gait and mobility; Y95 Nosocomial condition; Z74.01 Bed confinement status; Z86.73 Personal history of transient ischemic attack (TIA), and cerebral infarction without residual deficits; E80.6 Other disorders of bilirubin metabolism
CPT/HCPCS: 31720; 36410; 36415; 36600; 71045-TC; 80048-TC; 80053-TC; 80061-TC; 80076-TC; 80162-TC; 82728-TC; 82803-TC; 83540-TC; 83605-TC; 83735-TC; 83880; 84100-TC; 84439-TC; 84443-TC; 84484-TC; 85025-TC; 85027-TC; 85396; 85610-TC; 85730-TC; 86850-TC; 87081-TC; 93307-TC; 94003-TC; 94760-TC; 94761-TC; 94762-TC; 94799-TC; 99082-TC; A4216; A4223; A4623; A7526; C9113; G0378; J0692; J1956; J2405; J7030; J7040; J7050; J7060; J7209; P9017; Q9967

== ENCOUNTER 2024-06-18 12:53 | Inpatient (IN) | payer MEDICARE, OTHER ==
[~2024-06-18] VITALS: Ht 167.6 cm; Wt 78.2 kg
[2024-06-18] VITALS (10 sets, daily range): BP systolic 96–119; BP diastolic 51–79; TEMP 98–98.5; O2SAT 98–100
[~2024-06-18 12:53] MED LIST changes: -ALLA266C2 TP; -AMIN30LI2 GT; -ASPI-1169 GT; -CEFT1VIA55 IV; -DEXT50DI8 IV; -HYDR-4303 GT; +LACT-209 GT; -LORA-259 GT; -LORA2VIA6 IV; -Nepro GT; +OMEP20CA15 GT; +ONDA-97 GT; -ONDA4VIA52 IV; -PANT40SU2 GT; -Quetiapine Fumarate GT; -ZOLP5TAB8 GT
[2024-06-18] MEDS ORDERED: APIX2.5T GT (13:54)
[2024-06-18] MEDS ORDERED: FURO10SO GT (13:54)
[2024-06-18] MEDS ORDERED: THERA HONEY TP (13:54)
[2024-06-18] MEDS ORDERED: DOCU50LI GT (13:54)
[2024-06-18] MEDS ORDERED: IPRA0.2S49 IH (13:54)
[2024-06-18] MEDS ORDERED: ALBU2.5V38 IH (13:54)
[2024-06-18] MEDS ORDERED: ALLA266C2 TP (13:54)
[2024-06-18] MEDS ORDERED: NYST15PO4 TP (13:54)
[2024-06-18] MEDS ORDERED: DIGO125T GT (13:54)
[2024-06-18] MEDS ORDERED: PETR113O TP (13:54)
[2024-06-18] MEDS: IPRATROPIUM NEB FS 0.5 MG/2.5 ML AMPUL.NEB NEB SCH (14:00)
[2024-06-18] MEDS ORDERED: MAGNESIUM HYDROXIDE 30 ML UDC PO PRN (14:30)
[2024-06-18] MEDS ORDERED: JEVITY 1.2 CAL 1,000 ML BOTTLE GT SCH (14:30)
[2024-06-18] MEDS ORDERED: ACETAMINOPHEN 650 MG/SUPP.RECT RC PRN (14:30)
[2024-06-18] MEDS ORDERED: LACTULOSE 10 G/15 ML UDC (PYXIS) GT PRN (14:30)
[2024-06-18] MEDS ORDERED: ONDANSETRON HCL/PF 4 MG/2 ML VIAL IVP PRN (14:30)
[2024-06-18] MEDS ORDERED: MAG HYDROX/AL HYDROX/SIMETH 30 ML UDC PO PRN (14:30)
[2024-06-18] MEDS ORDERED: Z GUARD REMEDY 4 OZ OINT TP PRN (14:30)
[2024-06-18] MEDS ORDERED: HOME MED MISCELLANEOUS XX SCH ×4 (14:30)
[2024-06-18] MEDS ORDERED: IPRATROPIUM NEB FS 0.5 MG/2.5 ML AMPUL.NEB IH PRN (14:30)
[2024-06-18] MEDS ORDERED: BISACODYL SUPP (10 MG) 10 MG/SUPP.RECT SUPP.RECT RC PRN (14:30)
[2024-06-18] MEDS ORDERED: ACETAMINOPHEN 650 MG/20.3 ML UDC GT PRN (14:30)
[2024-06-18] MEDS ORDERED: ALBUTEROL FS 2.5 MG/3 ML VIAL.NEB IH PRN (14:30)
[2024-06-18] MEDS ORDERED: DEXTROSE 50%-WATER 50 ML DISP.SYRIN IV PRN (15:00)
[2024-06-18] MEDS: IV D5/ 0.9% NACL 1,000 ML IV ONE (15:10)
[2024-06-18] MEDS: IV NS 0.9% 250 ML IV PRN (15:39)
[2024-06-18] MEDS: PIPERACILLIN /TAZOBACTAM 3.375 G in IV D5W 50 ML IV SCH (15:59)
[2024-06-18] MEDS: VANCOMYCIN 1 GM in IV D5W 250 ML IV ONE (15:59)
[2024-06-18] MEDS ORDERED: POLYVINYL ALCOHOL 15 ML BOTTLE OP PRN (16:00)
[2024-06-18] MEDS: APIXABAN 2.5 MG TABLET GT SCH (16:24)
[2024-06-18] MEDS: FUROSEMIDE 40 MG TABLET GT SCH (16:24)
[2024-06-18 16:33] LABS: ABG PCO2 42.9 mmHg (35.0-48.0); ABG PH 7.442 (7.350-7.450); ABG PO2 156.6 mmHg (83.0-108.0); ABG TOTAL HEMOGLOBIN 12.3 G/dL (13.5-17.5); COHb 0.4 % (0.5-1.5); MetHb 0.2 % (0.0-1.5); O2Hb 98.4 % (94.0-97.0); PEEP,BG 5 cm H2O; SITE, ABG RIGHT BRACHIAL; VT, ABG 400 mL
[2024-06-18] MEDS: VANCOMYCIN 1 GM in IV D5W 250ml IV ONE (17:16)
[2024-06-18] MEDS: BLOOD SUGAR DIAGNOSTIC 1 EACH STRIP IN SCH (17:16)
[2024-06-18 17:35] LABS: APPEARANCE,URINE CLEAR (CLEAR); BILIRUBIN,URINE NEGATIVE (NEGATIVE); BLOOD, URINE NEGATIVE Ery/uL (NEGATIVE); COLOR,URINE YELLOW (YELLOW); KETONES,URINE NEGATIVE (NEGATIVE); LEUKOCYTE ESTERASE ,URINE NEGATIVE (NEGATIVE); NITRITE, URINE NEGATIVE (NEGATIVE); PROTEIN,URINE NEGATIVE (NEGATIVE); UGLUCOSE NEGATIVE (NEGATIVE); UROBILINOGEN,URINE 0.2 EU/dL (0.2)
[2024-06-18] MEDS ORDERED: IPRATROPIUM NEB FS 0.5 MG/2.5 ML AMPUL.NEB IH SCH (19:30)
[2024-06-18] MEDS: INSULIN REGULAR, HUMAN 100 UNIT/ML 3 ML VIAL SQ PRN (19:36)
[2024-06-18] MEDS: ALBUTEROL HALF STRENGTH 1.25 MG/3 ML VIAL.NEB IH SCH (19:54)
[2024-06-18] MEDS: DOCUSATE SODIUM LIQ 100 MG/10 ML UDC GT SCH (21:01)
[2024-06-18] MEDS: ASCORBIC ACID 500 MG TABLET GT SCH (21:01)
[2024-06-18] MEDS: CHLORHEXIDINE GLUCONATE 15 ML UDC MM SCH (21:01)
[2024-06-18] MEDS: ALPRAZOLAM 0.5 MG TABLET GT SCH (21:01)
[2024-06-18] MEDS: NYSTATIN TOP POWDER 15 GM BOTTLE TP SCH (21:01)
[2024-06-18] MEDS: VITAMINS A AND D 56.7 GM TUBE TP SCH (21:02)
[2024-06-18] MEDS: THERAHONEY GEL 1.5 OZ TUBE TP SCH (21:02)
[2024-06-19] VITALS (27 sets, daily range): BP systolic 89–173; BP diastolic 44–159; TEMP 98–98.7; O2SAT 95–100
[2024-06-19] MEDS: VANCOMYCIN HCL 1.25 GM in IV D5W 250 ML IV SCH (04:01)
[2024-06-19 05:12] LABS: BASOPHILS % (AUTO) 0.2 % (0.0-2.0); EOSINOPHILS # (AUTO) 0.2 K/uL (0.0-0.7); EOSINOPHILS % (AUTO) 2.4 % (0.0-6.0); HEMATOCRIT 34 % (39-51); HEMOGLOBIN 11.2 g/dL (13.5-17.5); LYMPHOCYTES # (AUTO) 0.9 K/uL (0.8-4.8); LYMPHOCYTES % (AUTO) 9.4 % (20.0-44.0); MEAN CORPUSCULAR HEMOGLOBIN 31 PG (26.0-33.0); MEAN CORPUSCULAR HGB CONC 33 g/dl (31.0-36.0); MEAN CORPUSCULAR VOLUME 94 fL (80-96); MONOCYTES # (AUTO) 0.6 K/uL (0.1-1.30); MONOCYTES % (AUTO) 5.8 % (2.0-12.0); NEUTROPHILS # (AUTO) 7.9 K/uL (1.8-8.9); NEUTROPHILS % (AUTO) 82.2 % (43.0-81.0); PLATELET COUNT (AUTO) 279 K/uL (150-450); RED CELL DISTRIBUTION WIDTH 16.2 % (11.5-15.0); WHITE BLOOD COUNT (AUTO) 9.6 K/uL (4.3-11.0)
[2024-06-19 06:03] LABS: CALCIUM, SERUM 8.6 mg/dL (8.5-10.1); CREATININE 0.9 mg/dL (0.6-1.3); MAGNESIUM 2.2 mg/dL (1.8-2.4); PHOSPHORUS 3.6 mg/dL (2.5-4.9); POTASSIUM 3.9 mmol/L (3.5-5.1)
[2024-06-19 06:13] LABS: DIGOXIN 1.03 ng/mL (0.90-2.00)
[2024-06-19] MEDS ORDERED: hydrALAZINE HCL IV 20 MG VIAL IV PRN (07:00)
[2024-06-19] MEDS: FAMOTIDINE/PF INJ 20 MG/2 ML VIAL IV ONE ×2 (07:01→07:04)
[2024-06-19] MEDS: methylPREDNISolone SOD SUCC 125 MG/2ML VIAL IV ONE (07:01)
[2024-06-19] MEDS: diphenhydrAMINE HCL 50 MG/ML VIAL IV ONE (07:03)
[2024-06-19] MEDS: PANTOPRAZOLE 40 MG VIAL IV SCH (08:18)
[2024-06-19] MEDS: DILTIAZEM HCL 30 MG TABLET GT SCH (12:28)
[2024-06-19] MEDS: DIGOXIN 0.125 MG TABLET GT SCH (12:29)
[2024-06-20] VITALS (12 sets, daily range): BP systolic 91–122; BP diastolic 48–83; TEMP 97.4–97.8; O2SAT 98–100
[2024-06-20 05:05] LABS: CALCIUM, SERUM 9.3 mg/dL (8.5-10.1); CREATININE 1.4 mg/dL (0.6-1.3); POTASSIUM 4.6 mmol/L (3.5-5.1)
== END 2024-06-20 11:15 | DRG 166 ==
LOC: ICU 12:59 → UNDODISIN 06-20 11:15
PROVIDERS: ADMIT Nurse Practitioner Acute Care; ATTEND Internal Medicine
PROC: 5A1945Z Respiratory Ventilation, 24-96 Consecutive Hours (ICD-10-PCS; principal; 2024-06-18)
PROC: 0BW17FZ Revision of Tracheostomy Device in Trachea, Via Natural or Artificial Opening (ICD-10-PCS; 2024-06-19)
DX: J95.09 Other tracheostomy complication (principal); G93.41 Metabolic encephalopathy; J69.0 Pneumonitis due to inhalation of food and vomit; J96.21 Acute and chronic respiratory failure with hypoxia; I48.20 Chronic atrial fibrillation, unspecified; D68.59 Other primary thrombophilia; Z99.11 Dependence on respirator [ventilator] status; Y84.8 Other medical procedures as the cause of abnormal reaction of the patient, or of later complication, without mention of misadventure at the time of the procedure; Y92.9 Unspecified place or not applicable; Z86.73 Personal history of transient ischemic attack (TIA), and cerebral infarction without residual deficits; Z98.890 Other specified postprocedural states; E11.9 Type 2 diabetes mellitus without complications; K21.9 Gastro-esophageal reflux disease without esophagitis; Z79.01 Long term (current) use of anticoagulants; D63.8 Anemia in other chronic diseases classified elsewhere; Z74.09 Other reduced mobility; R13.10 Dysphagia, unspecified; Z79.51 Long term (current) use of inhaled steroids; Z79.899 Other long term (current) drug therapy; J44.9 Chronic obstructive pulmonary disease, unspecified; I50.9 Heart failure, unspecified
CPT/HCPCS: 31720; 36415; 71045-TC; 80048-TC; 80162-TC; 80202-TC; 82962-TC; 83735-TC; 84100-TC; 85025-TC; 87040-TC; 87081-TC; 87086-TC; 93970-TC; 94002-TC; 94003-TC; 94799-TC; 99082-TC; A4223; A7526; G0378; J1200; J1815; J2470; J2543; J2919; J3370; J3490; J7042; J7050; J7060

== ENCOUNTER 2024-06-19 06:07 | Inpatient (IN) | payer MEDICARE, OTHER ==
[~2024-06-19] VITALS: Ht 172.7 cm; Wt 78.5 kg
[~2024-06-19 06:07] MED LIST changes: +ALBU2.5V38 IH; +ALLA266C2 TP; +APIX2.5T GT; -APIX5TAB GT; -BACL20TA GT; +DIGO125T GT; -DIGO50SO2 GT; +DOCU50LI GT; -DOCU50LI NG; +FURO10SO GT; -FURO40TA5 PO; +IPRA0.2S49 IH; -IPRA0.2S9 NEB; -MAG30ORA GT; -MAGN400O6 GT; +NYST15PO4 TP; -ONDA-97 GT; +PETR113O TP; +THERA HONEY TP
[2024-06-20 14:48] VITALS: BP 111/77; TEMP 98.2; O2SAT 100
[2024-06-20] MEDS ORDERED: IPRATROPIUM NEB FS 0.5 MG/2.5 ML AMPUL.NEB NEB PRN (15:22)
[2024-06-20] MEDS ORDERED: PANTOPRAZOLE 40 MG/PACK PACK GT SCH (15:22)
[2024-06-20] MEDS ORDERED: HYDROGEN PEROXIDE 480 ML BOTTLE TP SCH (15:22)
[2024-06-20] MEDS ORDERED: ALBUTEROL HALF STRENGTH 1.25 MG/3 ML VIAL.NEB NEB PRN (15:22)
[2024-06-20] MEDS ORDERED: Z GUARD REMEDY 4 OZ OINT TP PRN (15:22)
[2024-06-20] MEDS ORDERED: BACLOFEN (10 MG) 10 MG TABLET GT SCH (15:22)
[2024-06-20] MEDS ORDERED: VITAMINS A AND D 56.7 GM TUBE TP SCH (15:22)
[2024-06-20] MEDS ORDERED: THERAHONEY GEL 1.5 OZ TUBE TP SCH (15:22)
[2024-06-20 15:57] VITALS: O2SAT 100
[2024-06-20] MEDS ORDERED: ALBUTEROL FS 2.5 MG/0.5 ML VIAL.NEB NEB PRN ×2 (16:00)
[2024-06-20] MEDS ORDERED: ONDANSETRON 4 MG TAB.RAPDIS GT PRN (16:00)
[2024-06-20] MEDS ORDERED: MAGNESIUM HYDROXIDE 30 ML UDC GT PRN (16:00)
[2024-06-20] MEDS ORDERED: MAG HYDROX/AL HYDROX/SIMETH 30 ML UDC GT PRN (16:00)
[2024-06-20] MEDS ORDERED: BLOOD SUGAR DIAGNOSTIC 1 EACH STRIP IN PRN (16:00)
[2024-06-20] MEDS: ASCORBIC ACID 500 MG TABLET GT SCH (16:15)
[2024-06-20] MEDS: OMEPRAZOLE 20 MG CAPSULE.DR GT SCH (16:15)
[2024-06-20] MEDS: APIXABAN 2.5 MG TABLET GT SCH (16:15)
[2024-06-20] MEDS: CHLORHEXIDINE GLUCONATE 15 ML UDC MM SCH ×2 (16:15→21:43)
[2024-06-20] MEDS: ALPRAZOLAM 0.5 MG TABLET GT SCH (16:15)
[2024-06-20] MEDS: JEVITY 1.2 CAL 1,000 ML BOTTLE GT PRN (16:24)
[2024-06-20 19:08] VITALS: BP 107/72; TEMP 97.9; O2SAT 100
[2024-06-20] MEDS: IPRATROPIUM NEB FS 0.5 MG/2.5 ML AMPUL.NEB NEB SCH (20:14)
[2024-06-20] MEDS: ALBUTEROL HALF STRENGTH 1.25 MG/3 ML VIAL.NEB NEB SCH (20:15)
[2024-06-20] MEDS: HYDROGEN PEROXIDE 480 ML BOTTLE TP SCH (20:15)
[2024-06-20 22:24] VITALS: O2SAT 100
[2024-06-20 22:25] VITALS: O2SAT 100
[2024-06-21] MEDS: INSULIN REGULAR, HUMAN 100 UNIT/ML 10 ML VIAL SQ PRN (01:31)
[2024-06-21] MEDS: OMEPRAZOLE 20 MG CAPSULE.DR GT SCH (05:17)
[2024-06-21] MEDS: INSULIN REGULAR, HUMAN 100 UNIT/ML 10 ML VIAL SQ SCH (05:41)
[2024-06-21] MEDS: BLOOD SUGAR DIAGNOSTIC 1 EACH STRIP IN SCH (05:41)
[2024-06-21] MEDS: ALPRAZOLAM 0.5 MG TABLET GT SCH (08:57)
[2024-06-21] MEDS: ASCORBIC ACID 500 MG TABLET GT SCH (08:57)
[2024-06-21] MEDS: FUROSEMIDE ORAL SOLN 10 MG/ML ML GT SCH (08:57)
[2024-06-21 08:59] VITALS: BP 127/74; TEMP 97.9; O2SAT 100
[2024-06-21 10:38] VITALS: O2SAT 100
[2024-06-21] MEDS: DIGOXIN 0.125 MG TABLET GT SCH (12:41)
[2024-06-21 19:05] VITALS: BP 109/75; TEMP 98.8; O2SAT 100
[2024-06-21] MEDS: THERAHONEY GEL 1.5 OZ TUBE TP SCH (21:01)
[2024-06-21] MEDS: BACLOFEN (10 MG) 10 MG TABLET PO SCH (21:02)
[2024-06-21 22:33] VITALS: O2SAT 100
[2024-06-22 08:00] VITALS: BP 117/68; TEMP 97.4; O2SAT 100
[2024-06-22 11:07] VITALS: O2SAT 100
[2024-06-22] MEDS: BACLOFEN (10 MG) 10 MG TABLET PO SCH (13:05)
[2024-06-22 19:25] VITALS: BP 104/70; TEMP 97.7; O2SAT 99
[2024-06-22 22:48] VITALS: O2SAT 100
[2024-06-23 08:00] VITALS: BP 122/82; TEMP 98; O2SAT 100
[2024-06-23 11:06] VITALS: O2SAT 100
[2024-06-23 20:00] VITALS: BP 102/74; TEMP 97.6; O2SAT 99
[2024-06-23 22:34] VITALS: O2SAT 99
[2024-06-24 08:00] VITALS: BP 104/62; TEMP 93.3; O2SAT 100
[2024-06-24 10:17] VITALS: O2SAT 100
[2024-06-24 20:00] VITALS: BP 103/70; TEMP 97.7; O2SAT 99
[2024-06-24 22:36] VITALS: O2SAT 100
[2024-06-25 04:21] VITALS: O2SAT 100
[2024-06-25 07:42] VITALS: BP 106/54; TEMP 97.9; O2SAT 100
[2024-06-25 10:52] VITALS: O2SAT 99
[2024-06-25 20:36] VITALS: BP 120/62; TEMP 97.5; O2SAT 99
[2024-06-25 22:08] VITALS: O2SAT 98
[2024-06-26 08:00] VITALS: BP 99/66; TEMP 97; O2SAT 100
[2024-06-26 21:08] VITALS: BP 99/57; TEMP 97.1; O2SAT 96
[2024-06-26 23:16] VITALS: O2SAT 100
[2024-06-27] MEDS: NYSTATIN TOP POWDER 15 GM BOTTLE TP SCH ×2 (10:45→21:29)
[2024-06-27 10:59] VITALS: O2SAT 99
[2024-06-27 14:28] VITALS: BP 124/67; TEMP 99; O2SAT 98
[2024-06-27 19:04] VITALS: BP 114/69; TEMP 99; O2SAT 100
[2024-06-27 20:06] VITALS: O2SAT 100
[2024-06-27 23:18] VITALS: O2SAT 100
[2024-06-28 07:40] VITALS: BP 112/54; TEMP 99; O2SAT 98
[2024-06-28 10:13] VITALS: O2SAT 99
[2024-06-28 10:14] VITALS: O2SAT 100
[2024-06-28 19:19] VITALS: BP 96/64; TEMP 97.6; O2SAT 98
[2024-06-28 23:44] VITALS: O2SAT 100
[2024-06-29 07:49] VITALS: BP 105/57; TEMP 98.2; O2SAT 100
[2024-06-29 10:12] VITALS: O2SAT 99
[2024-06-29 10:13] VITALS: O2SAT 100
[2024-06-29 18:59] VITALS: BP 102/64; TEMP 98.2; O2SAT 100
[2024-06-29 23:51] VITALS: O2SAT 100
[2024-06-30 08:18] VITALS: BP 111/74; TEMP 98.6; O2SAT 100
[2024-06-30 10:06] VITALS: O2SAT 100
[2024-06-30 19:21] VITALS: BP 109/58; TEMP 97.9; O2SAT 100
[2024-06-30 23:47] VITALS: O2SAT 100
[2024-07-01 07:47] VITALS: BP 135/72; TEMP 98.2; O2SAT 100
[2024-07-01 12:22] VITALS: O2SAT 100
[2024-07-01] MEDS: DOCUSATE SODIUM LIQ 100 MG/10 ML UDC GT PRN (17:04)
[2024-07-01 19:59] VITALS: BP 104/71; TEMP 98.1; O2SAT 100
[2024-07-01 22:19] VITALS: O2SAT 99
[2024-07-02 07:21] VITALS: BP 118/61; TEMP 97.3; O2SAT 96
[2024-07-02 11:04] VITALS: O2SAT 99
[2024-07-02 11:05] VITALS: O2SAT 99
[2024-07-02 18:53] VITALS: BP 101/59; TEMP 99.1; O2SAT 99
[2024-07-02 23:13] VITALS: O2SAT 99
[2024-07-03 07:21] VITALS: BP 102/79; TEMP 98.1; O2SAT 98
[2024-07-03 10:43] VITALS: O2SAT 99
[2024-07-03 21:04] VITALS: BP 114/74; TEMP 98.6; O2SAT 100
[2024-07-03 23:19] VITALS: O2SAT 100; O2SAT 99
[2024-07-04 08:21] VITALS: BP 96/73; TEMP 97.5; O2SAT 100
[2024-07-04 10:24] VITALS: O2SAT 100
[2024-07-04 11:40] VITALS: O2SAT 99
[2024-07-04 19:46] VITALS: BP 105/77; TEMP 97.6; O2SAT 100
[2024-07-04 23:24] VITALS: O2SAT 100
[2024-07-05 10:24] VITALS: O2SAT 100
[2024-07-05 21:01] VITALS: BP 101/66; TEMP 97.4; O2SAT 100
[2024-07-05 22:07] VITALS: O2SAT 99
[2024-07-06 08:00] VITALS: BP 105/66; TEMP 97.5; O2SAT 100
[2024-07-06 10:33] VITALS: O2SAT 100
[2024-07-06 21:31] VITALS: BP 99/63; TEMP 97.5; O2SAT 100
[2024-07-06 22:10] VITALS: O2SAT 100
[2024-07-07 08:00] VITALS: BP 95/68; TEMP 98.4; O2SAT 100
[2024-07-07 17:00] VITALS: O2SAT 100
[2024-07-07 19:30] VITALS: BP 102/62; TEMP 98.6; O2SAT 100
[2024-07-07 22:08] VITALS: O2SAT 100
[2024-07-08 08:00] VITALS: BP 101/60; TEMP 97; O2SAT 100
[2024-07-08 10:08] VITALS: O2SAT 100
[2024-07-08] MEDS: TUBERCULIN,PURIF.PROT.DERIV. 5 TU/0.1 ML VIAL ID SCH (18:17)
[2024-07-08 19:49] VITALS: BP 102/59; TEMP 97.5; O2SAT 100
[2024-07-08 22:23] VITALS: O2SAT 100
[2024-07-08 23:16] VITALS: O2SAT 100
[2024-07-09 08:08] VITALS: BP 102/59; TEMP 97.1; O2SAT 100
[2024-07-09] MEDS: APIXABAN 2.5 MG TABLET GT SCH (09:56)
[2024-07-09 10:27] VITALS: O2SAT 100
[2024-07-09] MEDS: LACTULOSE 10 G/15 ML UDC (PYXIS) GT PRN (13:19)
[2024-07-09 21:27] VITALS: BP 99/75; TEMP 97.6; O2SAT 97
[2024-07-09 23:58] VITALS: O2SAT 99
[2024-07-10 07:30] VITALS: BP 131/77; TEMP 99; O2SAT 100
[2024-07-10 21:07] VITALS: BP 100/58; TEMP 97.6; O2SAT 99
[2024-07-10 22:36] VITALS: O2SAT 100
[2024-07-10 22:37] VITALS: O2SAT 100
[2024-07-11] MEDS: BISACODYL SUPP (10 MG) 10 MG/SUPP.RECT SUPP.RECT RC PRN (06:42)
[2024-07-11 07:21] VITALS: BP 138/90; TEMP 98.6; O2SAT 98
[2024-07-11 10:40] VITALS: O2SAT 100
[2024-07-11 11:12] VITALS: O2SAT 100
[2024-07-11 21:10] VITALS: BP 100/71; TEMP 97.9; O2SAT 100
[2024-07-11 22:26] VITALS: O2SAT 100
[2024-07-12 07:43] VITALS: BP 94/64; TEMP 99.5; O2SAT 98
[2024-07-12 10:13] VITALS: O2SAT 100
[2024-07-12 11:02] VITALS: O2SAT 100
[2024-07-12 21:38] VITALS: BP 116/68; TEMP 97.5; O2SAT 100
[2024-07-12 22:27] VITALS: O2SAT 100
[2024-07-13 07:22] VITALS: BP 96/49; TEMP 97.9; O2SAT 100
[2024-07-13 10:32] VITALS: O2SAT 100
[2024-07-13 10:33] VITALS: O2SAT 100
[2024-07-13 19:18] VITALS: BP 101/63; TEMP 98.2; O2SAT 99
[2024-07-13 23:44] VITALS: O2SAT 100
[2024-07-14 07:38] VITALS: BP 99/76; TEMP 98.8; O2SAT 100
[2024-07-14 10:30] VITALS: O2SAT 100
[2024-07-14 19:04] VITALS: BP 99/61; TEMP 98.2; O2SAT 100
[2024-07-14 23:42] VITALS: O2SAT 100
[2024-07-15 08:00] VITALS: BP 119/68; TEMP 97.5; O2SAT 100
[2024-07-15 08:39] VITALS: O2SAT 100
[2024-07-15 10:21] VITALS: O2SAT 100
[2024-07-15 20:00] VITALS: BP 99/74; TEMP 97.9; O2SAT 100
[2024-07-15 22:08] VITALS: O2SAT 100
[2024-07-16 07:20] VITALS: BP 104/66; TEMP 97.4; O2SAT 96
[2024-07-16 10:03] VITALS: O2SAT 100
[2024-07-16 21:00] VITALS: BP 99/58; TEMP 99; O2SAT 99
[2024-07-16 23:54] VITALS: O2SAT 100
[2024-07-17 07:14] VITALS: BP 128/67; TEMP 97.5; O2SAT 98
[2024-07-17 10:20] VITALS: O2SAT 100
[2024-07-17 21:10] VITALS: BP 101/62; TEMP 97.2; O2SAT 100
[2024-07-17 23:46] VITALS: O2SAT 100
[2024-07-18 08:45] VITALS: BP 95/68; TEMP 97.9; O2SAT 100
[2024-07-18 10:00] VITALS: O2SAT 98
[2024-07-18 19:00] VITALS: BP 95/75; TEMP 97.9; O2SAT 100
[2024-07-18 22:10] VITALS: O2SAT 99
[2024-07-19 07:36] VITALS: BP 128/73; TEMP 98.6; O2SAT 100
[2024-07-19 10:21] VITALS: O2SAT 100; O2SAT 98
[2024-07-19 18:52] VITALS: BP 117/82; TEMP 99.1; O2SAT 100
[2024-07-19 23:50] VITALS: O2SAT 100
[2024-07-20 08:00] VITALS: BP 108/66; TEMP 98.4; O2SAT 100
[2024-07-20 19:46] VITALS: BP 99/67; TEMP 97.2; O2SAT 100
[2024-07-20 22:37] VITALS: O2SAT 100
[2024-07-20 22:38] VITALS: O2SAT 100
[2024-07-21 08:00] VITALS: BP 102/78; TEMP 98.2; O2SAT 99
[2024-07-21] MEDS: VITAMINS A AND D 56.7 GM TUBE TP SCH (09:00)
[2024-07-21 11:20] VITALS: O2SAT 100
[2024-07-21 19:45] VITALS: BP 116/74; TEMP 98.2; O2SAT 100
[2024-07-21 22:24] VITALS: O2SAT 100
[2024-07-22 07:47] VITALS: BP 107/63; TEMP 97.7; O2SAT 100
[2024-07-22 13:29] VITALS: O2SAT 100
[2024-07-22 14:00] VITALS: O2SAT 100
[2024-07-22 18:00] VITALS: O2SAT 100
[2024-07-22 20:01] VITALS: BP 122/81; TEMP 98.2; O2SAT 100
[2024-07-22 23:04] VITALS: O2SAT 100
[2024-07-23 08:19] VITALS: BP 111/59; TEMP 97.1; O2SAT 100
[2024-07-23 10:37] VITALS: O2SAT 100
[2024-07-23 10:50] VITALS: O2SAT 100
[2024-07-23 20:16] VITALS: BP 99/69; TEMP 97.1; O2SAT 100
[2024-07-23 22:40] VITALS: O2SAT 100
[2024-07-24 07:53] VITALS: BP 97/81; TEMP 97.7; O2SAT 100
[2024-07-24 10:08] VITALS: O2SAT 100
[2024-07-24 20:01] VITALS: BP 99/60; TEMP 99.8; O2SAT 100
[2024-07-24 22:30] VITALS: O2SAT 100
[2024-07-25 07:45] VITALS: BP 126/84; TEMP 97.7; O2SAT 97
[2024-07-25 10:50] VITALS: O2SAT 100
[2024-07-25 20:29] VITALS: BP 123/75; TEMP 98.2; O2SAT 98
[2024-07-25 23:57] VITALS: O2SAT 100
[2024-07-25 23:58] VITALS: O2SAT 100
[2024-07-26 07:39] VITALS: BP 130/80; TEMP 98.2; O2SAT 100
[2024-07-26 10:41] VITALS: O2SAT 100
[2024-07-26 11:46] VITALS: O2SAT 100
[2024-07-26 19:11] VITALS: BP 96/69; TEMP 98.1; O2SAT 100
[2024-07-26 23:56] VITALS: O2SAT 99
[2024-07-27 07:41] VITALS: BP 125/90; TEMP 98.1; O2SAT 98
[2024-07-27 10:01] VITALS: O2SAT 100
[2024-07-27 11:25] VITALS: O2SAT 100
[2024-07-27 19:12] VITALS: BP 104/75; TEMP 98.4; O2SAT 97
[2024-07-27 23:45] VITALS: O2SAT 100
[2024-07-28 07:46] VITALS: BP 136/83; TEMP 98; O2SAT 97
[2024-07-28 13:35] VITALS: O2SAT 100
[2024-07-28 19:44] VITALS: BP 98/60; TEMP 98.2; O2SAT 100
[2024-07-28 23:36] VITALS: O2SAT 100
[2024-07-29 07:19] VITALS: BP 136/66; TEMP 97.9; O2SAT 100
[2024-07-29 11:00] VITALS: O2SAT 100
[2024-07-29 20:00] VITALS: BP 112/73; TEMP 97.5; O2SAT 99
[2024-07-29 22:13] VITALS: O2SAT 100
[2024-07-30 07:23] VITALS: BP 103/71; TEMP 97.6; O2SAT 100
[2024-07-30 10:40] VITALS: O2SAT 100
[2024-07-30 20:00] VITALS: BP 101/77; TEMP 98.1; O2SAT 100
[2024-07-30 22:31] VITALS: O2SAT 100
[2024-07-30 22:32] VITALS: O2SAT 100
[2024-07-31 07:21] VITALS: BP 104/73; TEMP 98.2; O2SAT 100
[2024-07-31 10:15] VITALS: O2SAT 100
[2024-07-31 20:00] VITALS: BP 101/70; TEMP 98; O2SAT 99
[2024-07-31 23:27] VITALS: O2SAT 100
[2024-07-31 23:28] VITALS: O2SAT 100
[2024-08-01 08:43] VITALS: BP 95/62; TEMP 97.5; O2SAT 100
[2024-08-01 10:59] VITALS: O2SAT 100
[2024-08-01 11:43] VITALS: O2SAT 100
[2024-08-01 20:17] VITALS: BP 12/75; TEMP 98.2; O2SAT 10
[2024-08-01 22:38] VITALS: O2SAT 100
[2024-08-01 23:42] VITALS: O2SAT 100
[2024-08-02 08:36] VITALS: BP 107/58; TEMP 97.2; O2SAT 100
[2024-08-02 10:15] VITALS: O2SAT 100
[2024-08-02 20:33] VITALS: BP 100/83; TEMP 97.8; O2SAT 100
[2024-08-02 22:59] VITALS: O2SAT 100
[2024-08-02 23:10] VITALS: O2SAT 100
[2024-08-03 08:00] VITALS: BP 121/95; TEMP 98; O2SAT 99
[2024-08-03 10:44] VITALS: O2SAT 100
[2024-08-03 10:45] VITALS: O2SAT 100
[2024-08-03 19:40] VITALS: BP 102/69; TEMP 97.3; O2SAT 100
[2024-08-03 22:36] VITALS: O2SAT 100
[2024-08-03 22:37] VITALS: O2SAT 100
[2024-08-04 08:00] VITALS: BP 114/84; TEMP 98.1; O2SAT 100
[2024-08-04 10:46] VITALS: O2SAT 100
[2024-08-04 20:00] VITALS: BP 99/58; TEMP 98.1; O2SAT 99
[2024-08-04 23:20] VITALS: O2SAT 98
[2024-08-04 23:21] VITALS: O2SAT 98
[2024-08-05 08:00] VITALS: BP 100/66; TEMP 98.1; O2SAT 100
[2024-08-05 10:32] VITALS: O2SAT 100
[2024-08-05 20:00] VITALS: BP 99/73; TEMP 98; O2SAT 99
[2024-08-05 22:22] VITALS: O2SAT 100
[2024-08-06 08:09] VITALS: BP 99/61; TEMP 98; O2SAT 100
[2024-08-06] MEDS: APIXABAN 2.5 MG TABLET GT SCH (09:27)
[2024-08-06 10:05] VITALS: O2SAT 100
[2024-08-06 21:24] VITALS: BP 109/64; TEMP 97.2; O2SAT 100
[2024-08-06 22:10] VITALS: O2SAT 100
[2024-08-07 08:00] VITALS: BP 122/87; TEMP 98.6; O2SAT 100
[2024-08-07 10:24] VITALS: O2SAT 100
[2024-08-07 11:34] VITALS: O2SAT 100
[2024-08-07] MEDS: ACETAMINOPHEN 650 MG/20.3 ML UDC GT PRN (17:07)
[2024-08-07 20:00] VITALS: BP 126/72; TEMP 98.1; O2SAT 99
[2024-08-07] MEDS: NEOMY SULF/BACITRAC ZN/POLY 15 GM TUBE TP SCH (21:19)
[2024-08-07 22:10] VITALS: O2SAT 100
[2024-08-08 07:15] VITALS: BP 123/74; TEMP 98; O2SAT 100
[2024-08-08] MEDS: NYSTATIN TOP POWDER 15 GM BOTTLE TP SCH (09:00)
[2024-08-08 10:32] VITALS: O2SAT 100; O2SAT 99
[2024-08-08 19:05] VITALS: BP 96/65; TEMP 99.1; O2SAT 100
[2024-08-08 22:08] VITALS: O2SAT 100
[2024-08-09 07:07] VITALS: BP 123/60; TEMP 98.4; O2SAT 100
[2024-08-09 10:09] VITALS: O2SAT 100; O2SAT 99
[2024-08-09 20:14] VITALS: BP 113/52; TEMP 97.5; O2SAT 100
[2024-08-09 22:10] VITALS: O2SAT 100
[2024-08-10 07:35] VITALS: BP 112/65; TEMP 98.1; O2SAT 100
[2024-08-10 10:24] VITALS: O2SAT 99
[2024-08-10 10:56] VITALS: O2SAT 100
[2024-08-10 19:03] VITALS: BP 95/58; TEMP 98.8; O2SAT 100
[2024-08-10 23:48] VITALS: O2SAT 100
[2024-08-11 07:59] VITALS: BP 120/80; TEMP 98.6; O2SAT 100
[2024-08-11 10:20] VITALS: O2SAT 100
[2024-08-11 19:48] VITALS: BP 106/73; TEMP 98.6; O2SAT 100
[2024-08-11 23:43] VITALS: O2SAT 100
[2024-08-12 07:54] VITALS: BP 93/53; TEMP 98; O2SAT 100
[2024-08-12 10:49] VITALS: O2SAT 100
[2024-08-12 19:44] VITALS: BP 101/61; TEMP 98.1; O2SAT 100
[2024-08-12 22:12] VITALS: O2SAT 100
[2024-08-12 23:05] VITALS: O2SAT 100
[2024-08-13 07:50] VITALS: BP 104/61; TEMP 98.6; O2SAT 100
[2024-08-13 10:40] VITALS: O2SAT 100
[2024-08-13 20:10] VITALS: BP 99/69; TEMP 97.7; O2SAT 99
[2024-08-13 22:29] VITALS: O2SAT 100
[2024-08-14 07:41] VITALS: BP 104/59; TEMP 97.9; O2SAT 100
[2024-08-14 10:08] VITALS: O2SAT 100
[2024-08-14 10:55] VITALS: O2SAT 100
[2024-08-14 20:14] VITALS: BP 111/71; TEMP 97.9; O2SAT 100
[2024-08-14 22:21] VITALS: O2SAT 100
[2024-08-15 07:27] VITALS: BP 106/75; TEMP 98.6; O2SAT 98
[2024-08-15 07:32] VITALS: O2SAT 95
[2024-08-15 10:17] VITALS: O2SAT 100
[2024-08-15 11:56] VITALS: O2SAT 99
[2024-08-15 19:28] VITALS: BP 99/62; TEMP 97.7; O2SAT 99
[2024-08-15 22:51] VITALS: O2SAT 100
[2024-08-16 07:41] VITALS: BP 101/69; TEMP 98.2; O2SAT 100
[2024-08-16 11:12] VITALS: O2SAT 100
[2024-08-16 15:23] VITALS: O2SAT 100
[2024-08-16 20:22] VITALS: BP 98/62; TEMP 98; O2SAT 99
[2024-08-16 22:48] VITALS: O2SAT 100
[2024-08-17 07:06] VITALS: BP 100/56; TEMP 98.8; O2SAT 99
[2024-08-17 10:30] VITALS: O2SAT 99
[2024-08-17 19:50] VITALS: BP 137/82; TEMP 98.1; O2SAT 100
[2024-08-17 22:14] VITALS: O2SAT 100
[2024-08-17 22:19] VITALS: O2SAT 100
[2024-08-18 08:00] VITALS: BP 98/70; TEMP 99; O2SAT 100
[2024-08-18 10:11] VITALS: O2SAT 100
[2024-08-18 20:06] VITALS: BP 103/82; TEMP 99; O2SAT 99
[2024-08-18 22:35] VITALS: O2SAT 100
[2024-08-18 22:36] VITALS: O2SAT 100
[2024-08-19 07:28] VITALS: BP 100/60; TEMP 98.8; O2SAT 100
[2024-08-19 08:15] VITALS: O2SAT 100
[2024-08-19 10:12] VITALS: O2SAT 100
[2024-08-19 22:00] VITALS: BP 120/78; TEMP 98.6; O2SAT 100
[2024-08-19 22:19] VITALS: O2SAT 100
[2024-08-19 22:30] VITALS: O2SAT 100
[2024-08-20 08:00] VITALS: BP 106/63; TEMP 97.5; O2SAT 100
[2024-08-20 11:11] VITALS: O2SAT 100
[2024-08-20 22:18] VITALS: BP 102/64; TEMP 98.2; O2SAT 100
[2024-08-21 07:11] VITALS: BP 101/72; TEMP 98.8; O2SAT 98
[2024-08-21 10:39] VITALS: O2SAT 100
[2024-08-21 10:55] VITALS: O2SAT 100
[2024-08-21 20:55] VITALS: BP 110/56; TEMP 98.8; O2SAT 100
[2024-08-21 22:58] VITALS: O2SAT 100
[2024-08-21 22:59] VITALS: O2SAT 100
[2024-08-22 07:45] VITALS: BP 101/58; TEMP 98.1; O2SAT 99
[2024-08-22 10:46] VITALS: O2SAT 100
[2024-08-22 20:36] VITALS: BP 99/66; TEMP 97.9; O2SAT 100
[2024-08-22 22:26] VITALS: O2SAT 100
[2024-08-23 07:45] VITALS: BP 120/73; O2SAT 98
[2024-08-23 08:30] VITALS: TEMP 100.6
[2024-08-23 11:04] VITALS: O2SAT 100
[2024-08-23 12:00] VITALS: TEMP 99.3
[2024-08-23 15:16] LABS: PLATELET COUNT (AUTO) 247 K/uL (150-450); RED BLOOD CELL COUNT(AUTO) 3.91 MIL/uL (4.5-6.0); RED CELL DISTRIBUTION WIDTH 15.6 % (11.5-15.0); WHITE BLOOD COUNT (AUTO) 8.8 K/uL (4.3-11.0)
[2024-08-23 15:33] LABS: CALCIUM, SERUM 8.9 mg/dL (8.5-10.1); CREATININE 0.9 mg/dL (0.6-1.3); SODIUM SERUM 138.0 mmol/L (136-145); UREA NITROGEN, BLOOD 23.0 mg/dL (7-18)
[2024-08-23 20:13] VITALS: BP 107/62; TEMP 97.2; O2SAT 99
[2024-08-23] MEDS: VANCOMYCIN 1 GM in IV D5W 250ml IV SCH (21:16)
[2024-08-23 23:44] VITALS: O2SAT 100
[2024-08-24 07:19] VITALS: BP 101/73; TEMP 98.4; O2SAT 100
[2024-08-24 12:00] VITALS: O2SAT 100
[2024-08-24 19:32] VITALS: BP 101/72; TEMP 98.6; O2SAT 100
[2024-08-24 23:24] VITALS: O2SAT 100
[2024-08-25 07:34] VITALS: BP 116/64; TEMP 98.4; O2SAT 100
[2024-08-25 09:02] VITALS: O2SAT 100
[2024-08-25 09:03] LABS: CREATININE 0.9 mg/dL (0.6-1.3); UREA NITROGEN, BLOOD 23.0 mg/dL (7-18)
[2024-08-25 10:45] VITALS: O2SAT 100
[2024-08-25 19:33] VITALS: BP 105/63; TEMP 97.9; O2SAT 100
[2024-08-25] MEDS: VANCOMYCIN 1 GM in IV D5W 250ml IV SCH (20:15)
[2024-08-25 23:41] VITALS: O2SAT 99
[2024-08-26 08:17] VITALS: BP 98/64; TEMP 99; O2SAT 100
[2024-08-26 10:58] VITALS: O2SAT 100
[2024-08-26 11:15] VITALS: O2SAT 99
[2024-08-26 19:27] VITALS: BP 119/72; TEMP 97.7; O2SAT 100
[2024-08-26 22:35] VITALS: O2SAT 98
[2024-08-26 22:52] VITALS: O2SAT 100
[2024-08-27 07:07] VITALS: BP 124/54; TEMP 98.1; O2SAT 100
[2024-08-27 10:12] VITALS: O2SAT 100
[2024-08-27 10:13] VITALS: O2SAT 99
[2024-08-27] MEDS: POLYVINYL ALCOHOL 15 ML BOTTLE OP PRN (17:34)
[2024-08-27 19:20] VITALS: BP 101/64; TEMP 97.5; O2SAT 99
[2024-08-27 22:20] VITALS: O2SAT 100
[2024-08-28 07:33] VITALS: BP 104/57; TEMP 97.5; O2SAT 100
[2024-08-28 10:21] VITALS: O2SAT 100
[2024-08-28 11:17] VITALS: O2SAT 100
[2024-08-28 19:29] VITALS: BP 102/60; TEMP 98.8; O2SAT 100
[2024-08-28 23:24] VITALS: O2SAT 100
[2024-08-29 08:40] VITALS: BP 98/62; TEMP 98.1; O2SAT 100
[2024-08-29 10:24] VITALS: O2SAT 100
[2024-08-29 12:40] VITALS: O2SAT 100
[2024-08-29 19:20] VITALS: BP 101/67; TEMP 99.1; O2SAT 100
[2024-08-29 23:01] VITALS: O2SAT 99
[2024-08-30 08:07] VITALS: BP 98/56; TEMP 97.9; O2SAT 98
[2024-08-30 10:43] VITALS: O2SAT 100; O2SAT 96
[2024-08-30 19:05] VITALS: BP 102/73; TEMP 98.2; O2SAT 100
[2024-08-30 23:08] VITALS: O2SAT 100
[2024-08-31 10:18] VITALS: O2SAT 100
[2024-08-31 19:19] VITALS: BP 95/76; TEMP 97.9; O2SAT 100
[2024-08-31 22:07] VITALS: O2SAT 100
[2024-09-01 08:00] VITALS: BP 97/59; TEMP 97.9; O2SAT 99
[2024-09-01 10:30] VITALS: BP 100/60; TEMP 98.3; O2SAT 100
[2024-09-01 10:41] VITALS: O2SAT 100
[2024-09-01 11:37] VITALS: O2SAT 100
[2024-09-01 19:59] VITALS: BP 122/77; TEMP 98.8; O2SAT 100
[2024-09-01 23:15] VITALS: O2SAT 100
[2024-09-02 08:00] VITALS: BP 111/70; TEMP 98.4; O2SAT 99
[2024-09-02 12:00] VITALS: O2SAT 100
[2024-09-02 19:33] VITALS: BP 118/64; TEMP 98.2; O2SAT 100
[2024-09-02 22:17] VITALS: O2SAT 100
[2024-09-03 08:32] VITALS: BP 117/86; TEMP 97.2; O2SAT 100
[2024-09-03 10:30] VITALS: O2SAT 100
[2024-09-03 19:41] VITALS: BP 132/85; TEMP 98.2; O2SAT 100
[2024-09-03 23:32] VITALS: O2SAT 100
[2024-09-03 23:33] VITALS: O2SAT 100
[2024-09-04 07:23] VITALS: BP 114/87; TEMP 97.2; O2SAT 99
[2024-09-04 08:09] VITALS: BP 114/87; TEMP 97.2; O2SAT 99
[2024-09-04 10:07] VITALS: O2SAT 99
[2024-09-04 11:17] VITALS: O2SAT 100
[2024-09-04 19:43] VITALS: BP 108/88; TEMP 98; O2SAT 100
[2024-09-04 23:52] VITALS: O2SAT 100
[2024-09-05 07:43] VITALS: BP 116/70; TEMP 97.9; O2SAT 97
[2024-09-05 10:08] VITALS: O2SAT 99
[2024-09-05 19:11] VITALS: BP 96/63; TEMP 98.6; O2SAT 100
[2024-09-05 23:20] VITALS: O2SAT 100
[2024-09-06 10:22] VITALS: O2SAT 99
[2024-09-06 11:44] VITALS: O2SAT 100
[2024-09-06 19:03] VITALS: BP 113/64; TEMP 99; O2SAT 100
[2024-09-06 23:47] VITALS: O2SAT 100
[2024-09-07] MEDS: DOCUSATE SODIUM LIQ 100 MG/10 ML UDC GT PRN (05:12)
[2024-09-07 08:52] VITALS: BP 119/79; TEMP 98.2; O2SAT 99
[2024-09-07 12:03] VITALS: O2SAT 99
[2024-09-07 12:05] VITALS: O2SAT 99
[2024-09-07 19:29] VITALS: BP 99/53; TEMP 98.6; O2SAT 100
[2024-09-07 22:09] VITALS: O2SAT 99
[2024-09-08 07:32] VITALS: BP 104/73; TEMP 98.6; O2SAT 100
[2024-09-08 11:00] VITALS: O2SAT 100
[2024-09-08 18:57] VITALS: BP 110/69; TEMP 97.9; O2SAT 100
[2024-09-08] MEDS: NYSTATIN TOP POWDER 15 GM BOTTLE TP SCH (20:56)
[2024-09-08 23:11] VITALS: O2SAT 100
[2024-09-08 23:12] VITALS: O2SAT 100
[2024-09-09 07:39] VITALS: BP 99/62; TEMP 98.2; O2SAT 100
[2024-09-09 10:27] VITALS: O2SAT 100; O2SAT 99
[2024-09-09 20:15] VITALS: BP 113/72; TEMP 98; O2SAT 100
[2024-09-09 22:22] VITALS: O2SAT 100
[2024-09-09 22:23] VITALS: O2SAT 72
[2024-09-10 07:41] VITALS: BP 98/64; TEMP 97.4; O2SAT 98
[2024-09-10 10:50] VITALS: O2SAT 100; O2SAT 99
[2024-09-10 20:00] VITALS: BP 101/59; TEMP 98; O2SAT 99
[2024-09-10 22:24] VITALS: O2SAT 100
[2024-09-10 22:25] VITALS: O2SAT 100
[2024-09-11 07:26] VITALS: BP 111/70; TEMP 97.6; O2SAT 98
[2024-09-11 09:23] VITALS: O2SAT 100
[2024-09-11 12:19] VITALS: O2SAT 99
[2024-09-11 20:00] VITALS: BP 107/63; TEMP 97.5; O2SAT 99
[2024-09-11 22:51] VITALS: O2SAT 100
[2024-09-12 08:02] VITALS: BP 119/89; TEMP 98.6; O2SAT 100
[2024-09-12 10:24] VITALS: O2SAT 100
[2024-09-12 13:50] VITALS: O2SAT 99
[2024-09-12 19:25] VITALS: BP 97/70; TEMP 98.6; O2SAT 100
[2024-09-12 22:25] VITALS: O2SAT 100
[2024-09-13 09:06] VITALS: BP 118/71; TEMP 97.1; O2SAT 100
[2024-09-13 10:15] VITALS: O2SAT 100
[2024-09-13 11:27] VITALS: O2SAT 98
[2024-09-13 20:11] VITALS: BP 98/66; TEMP 97.5; O2SAT 98
[2024-09-13 23:33] VITALS: O2SAT 100
[2024-09-14 07:36] VITALS: BP 98/66; TEMP 98.1; O2SAT 99
[2024-09-14 10:43] VITALS: O2SAT 100
[2024-09-14 20:10] VITALS: BP 98/67; TEMP 98.4; O2SAT 100
[2024-09-14 22:32] VITALS: O2SAT 100
[2024-09-14 22:33] VITALS: O2SAT 100
[2024-09-15] VITALS (7 sets, daily range): BP systolic 108–126; BP diastolic 62–72; TEMP 98–98.1; O2SAT 99–100
[2024-09-16 07:38] VITALS: BP 106/60; TEMP 98.1; O2SAT 100
[2024-09-16 10:08] VITALS: O2SAT 100
[2024-09-16 20:00] VITALS: BP 103/60; TEMP 97.5; O2SAT 99
[2024-09-16 22:23] VITALS: O2SAT 100
[2024-09-16 22:24] VITALS: O2SAT 100
[2024-09-17 08:24] VITALS: BP 100/84; TEMP 97.9; O2SAT 100
[2024-09-17 10:31] VITALS: O2SAT 100
[2024-09-17 19:47] VITALS: BP 93/60; TEMP 97.7; O2SAT 100
[2024-09-17 22:19] VITALS: O2SAT 100
[2024-09-17 22:20] VITALS: O2SAT 100
[2024-09-18 08:01] VITALS: BP 125/68; TEMP 98.2; O2SAT 100
[2024-09-18 10:46] VITALS: O2SAT 100
[2024-09-18 20:00] VITALS: BP 125/80; TEMP 97.5; O2SAT 99
[2024-09-18 22:18] VITALS: O2SAT 100
[2024-09-19 09:54] VITALS: O2SAT 100
[2024-09-19 10:15] VITALS: O2SAT 100
[2024-09-19 14:55] VITALS: BP 104/61; TEMP 98.4; O2SAT 100
[2024-09-19 19:56] VITALS: BP 98/56; TEMP 97.6; O2SAT 100
[2024-09-19 22:42] VITALS: O2SAT 100
[2024-09-20 07:22] VITALS: BP 128/74; TEMP 97.7; O2SAT 100
[2024-09-20 10:50] VITALS: O2SAT 100
[2024-09-20 19:42] VITALS: BP 99/55; TEMP 98.8; O2SAT 100
[2024-09-20 23:35] VITALS: O2SAT 100
[2024-09-21 07:39] VITALS: BP 112/74; TEMP 97.9; O2SAT 100
[2024-09-21 10:25] VITALS: O2SAT 100
[2024-09-21 19:04] VITALS: BP 102/62; TEMP 98.2; O2SAT 100
[2024-09-22 00:30] VITALS: O2SAT 100
[2024-09-22 07:49] VITALS: BP 111/57; TEMP 97.9; O2SAT 100
[2024-09-22 10:18] VITALS: O2SAT 99
[2024-09-22 21:55] VITALS: BP 103/66; TEMP 97.9; O2SAT 100
[2024-09-22 23:53] VITALS: O2SAT 100
[2024-09-23 07:42] VITALS: BP 96/59; TEMP 98.8; O2SAT 100
[2024-09-23 10:30] VITALS: O2SAT 100
[2024-09-23 22:48] VITALS: O2SAT 100
[2024-09-23 23:10] VITALS: BP 111/86; TEMP 98.8; O2SAT 100
[2024-09-24 07:43] VITALS: BP 89/57; TEMP 98.1; O2SAT 100
[2024-09-24 08:29] VITALS: BP 102/62
[2024-09-24 10:20] VITALS: O2SAT 100
[2024-09-24 20:13] VITALS: BP 101/65; TEMP 98.1; O2SAT 100
[2024-09-24 22:11] VITALS: O2SAT 100
[2024-09-24 22:38] VITALS: O2SAT 100
[2024-09-25 07:48] VITALS: BP 105/63; TEMP 98.6; O2SAT 100
[2024-09-25 10:24] VITALS: O2SAT 100
[2024-09-25 11:32] VITALS: O2SAT 100
[2024-09-25 19:53] VITALS: BP 95/67; TEMP 97.5; O2SAT 99
[2024-09-25 23:17] VITALS: O2SAT 100
[2024-09-26 07:37] VITALS: BP 101/54; TEMP 97.7; O2SAT 100
[2024-09-26 10:47] VITALS: O2SAT 99
[2024-09-26 11:42] VITALS: O2SAT 100
[2024-09-26 19:53] VITALS: BP 105/76; TEMP 97.8; O2SAT 100
[2024-09-26] MEDS: NYSTATIN TOP POWDER 15 GM BOTTLE TP SCH (21:16)
[2024-09-26 22:20] VITALS: O2SAT 100
[2024-09-27 07:19] VITALS: BP 95/73; TEMP 96.6; O2SAT 100
[2024-09-27 10:17] VITALS: O2SAT 99
[2024-09-27 11:48] VITALS: O2SAT 100
[2024-09-27 20:13] VITALS: BP 104/62; TEMP 97.9; O2SAT 100
[2024-09-27 23:30] VITALS: O2SAT 100
[2024-09-28 07:55] VITALS: BP 103/76; TEMP 97.9; O2SAT 100
[2024-09-28 10:44] VITALS: O2SAT 99
[2024-09-28 11:49] VITALS: O2SAT 100
[2024-09-28 20:06] VITALS: BP 100/68; TEMP 97.6; O2SAT 99
[2024-09-28 22:38] VITALS: O2SAT 99
[2024-09-29 10:06] VITALS: O2SAT 99
[2024-09-29 11:07] VITALS: O2SAT 99
[2024-09-29] MEDS: BACLOFEN (10 MG) 10 MG TABLET GT SCH (12:56)
[2024-09-29 20:04] VITALS: BP 102/90; TEMP 98.2; O2SAT 100
[2024-09-29 22:09] VITALS: O2SAT 100
[2024-09-29 22:12] VITALS: O2SAT 100
[2024-09-30 08:30] VITALS: BP 113/67; TEMP 97.1; O2SAT 100
[2024-09-30 10:24] VITALS: O2SAT 100
[2024-09-30 20:15] VITALS: BP 103/66; TEMP 98.1; O2SAT 98
[2024-10-01 00:15] VITALS: O2SAT 100
[2024-10-01 07:18] VITALS: O2SAT 100
[2024-10-01 08:40] VITALS: BP 130/66; TEMP 97.9; O2SAT 100
[2024-10-01 11:01] VITALS: O2SAT 100
[2024-10-01 20:54] VITALS: BP 119/60; TEMP 97.9; O2SAT 100
[2024-10-01 22:43] VITALS: O2SAT 100
[2024-10-02 07:33] VITALS: BP 122/69; TEMP 97.4; O2SAT 100
[2024-10-02 11:17] VITALS: O2SAT 100
[2024-10-02 19:31] VITALS: BP 141/81; TEMP 98.2; O2SAT 100
[2024-10-02 23:08] VITALS: O2SAT 100
[2024-10-03 08:00] VITALS: BP 101/56; TEMP 97.9; O2SAT 100
[2024-10-03 10:24] VITALS: O2SAT 100
[2024-10-03 11:05] VITALS: O2SAT 100
[2024-10-03 19:22] VITALS: BP 112/70; TEMP 98.1; O2SAT 100
[2024-10-03 23:17] VITALS: O2SAT 100
[2024-10-04 07:47] VITALS: BP 122/82; TEMP 98.2; O2SAT 99
[2024-10-04 10:49] VITALS: O2SAT 100
[2024-10-04 19:50] VITALS: BP 115/80; TEMP 97.7; O2SAT 100
[2024-10-04] MEDS: NEOMY SULF/BACITRAC ZN/POLY 15 GM TUBE TP SCH (21:05)
[2024-10-04 23:33] VITALS: O2SAT 100
[2024-10-05 07:30] VITALS: BP 104/43; TEMP 98.6; O2SAT 100
[2024-10-05 08:45] VITALS: O2SAT 99
[2024-10-05 10:35] VITALS: O2SAT 100
[2024-10-05 19:48] VITALS: BP 106/77; TEMP 98.8; O2SAT 100
[2024-10-05 23:48] VITALS: O2SAT 100
[2024-10-06 07:55] VITALS: BP 111/84; TEMP 97.7; O2SAT 99
[2024-10-06 10:24] VITALS: O2SAT 99
[2024-10-06 11:09] VITALS: O2SAT 100
[2024-10-06 19:26] VITALS: BP 106/64; TEMP 97.9; O2SAT 100
[2024-10-07 00:31] VITALS: O2SAT 100
[2024-10-07 07:57] VITALS: BP 114/55; TEMP 99; O2SAT 100
[2024-10-07 10:37] VITALS: O2SAT 100
[2024-10-07 19:26] VITALS: BP 96/62; TEMP 98.6; O2SAT 100
[2024-10-07 22:26] VITALS: O2SAT 100
[2024-10-08 07:32] VITALS: O2SAT 97
[2024-10-08 07:33] VITALS: BP 98/60; TEMP 98.6; O2SAT 99
[2024-10-08 10:06] VITALS: O2SAT 100
[2024-10-08 19:42] VITALS: BP 108/75; TEMP 98.2; O2SAT 99
[2024-10-08 22:17] VITALS: O2SAT 100
[2024-10-09 08:21] VITALS: BP 103/55; TEMP 98.1; O2SAT 100
[2024-10-09 10:27] VITALS: O2SAT 100
[2024-10-09 20:00] VITALS: BP 98/66; TEMP 98.1; O2SAT 99
[2024-10-09 22:12] VITALS: O2SAT 100
[2024-10-10] VITALS (7 sets, daily range): BP systolic 105–123; BP diastolic 52–67; TEMP 97.9–99.3; O2SAT 100
[2024-10-11 07:53] VITALS: BP 115/82; TEMP 98.4; O2SAT 100
[2024-10-11 13:06] VITALS: O2SAT 100
[2024-10-11 16:10] VITALS: BP 102/62; TEMP 101.9; O2SAT 99
[2024-10-11 18:00] VITALS: TEMP 99.3
[2024-10-11 19:23] VITALS: BP 96/69; TEMP 99.5; O2SAT 100
[2024-10-11] MEDS: ONDANSETRON 4 MG TAB.RAPDIS GT ONE (20:00)
[2024-10-11 22:03] LABS: APPEARANCE,URINE CLEAR (CLEAR); BLOOD, URINE NEGATIVE Ery/uL (NEGATIVE); LEUKOCYTE ESTERASE ,URINE NEGATIVE (NEGATIVE); NITRITE, URINE NEGATIVE (NEGATIVE); UGLUCOSE NEGATIVE (NEGATIVE)
[2024-10-11 22:53] LABS: ADD URINE CULTURE NO; SQUAMOUS EPITHELIAL CELL,UR Moderate /HPF (None Seen)
[2024-10-11] MEDS: LEVOFLOXACIN (250MG) 250 MG TABLET GT SCH (22:55)
[2024-10-11] MEDS: IV D5/ 0.9% NACL 1,000 ML IV ONE (23:05)
[2024-10-11 23:47] VITALS: O2SAT 100
[2024-10-11 23:57] LABS: CALCIUM, SERUM 8.4 mg/dL (8.5-10.1); CREATININE 1.0 mg/dL (0.6-1.3); SODIUM SERUM 131.0 mmol/L (136-145); UREA NITROGEN, BLOOD 27.0 mg/dL (7-18)
[2024-10-12 05:31] VITALS: BP 94/59; TEMP 97.7; O2SAT 99
[2024-10-12 07:29] VITALS: BP 99/78; TEMP 97.7; O2SAT 97
[2024-10-12 07:30] LABS: PLATELET COUNT (AUTO) 202 K/uL (150-450); RED BLOOD CELL COUNT(AUTO) 3.52 MIL/uL (4.5-6.0); RED CELL DISTRIBUTION WIDTH 15.5 % (11.5-15.0); WHITE BLOOD COUNT (AUTO) 10.7 K/uL (4.3-11.0)
[2024-10-12] MEDS: IV D5/ 0.9% NACL 500 ML IV PRN (09:00)
[2024-10-12 10:28] LABS: BAND % (MANUAL) 1 % (0.0-5.0); LYMPHOCYTES % (MANUAL) 11 % (16-48); MONOCYTES % (MANUAL) 16 % (0-11.0); NEUTROPHILS % (MANUAL) 72 (42-76); PLATELET ESTIMATE ADEQUATE
[2024-10-12 11:06] VITALS: O2SAT 100
[2024-10-12 20:23] VITALS: BP 104/75; TEMP 98.2; O2SAT 100
[2024-10-12] MEDS: LEVOFLOXACIN 250 MG/10 ML GT SCH (21:18)
[2024-10-12 22:32] VITALS: O2SAT 98
[2024-10-13 07:36] VITALS: BP 108/70; TEMP 98.2; O2SAT 96
[2024-10-13 10:50] VITALS: O2SAT 100; O2SAT 98
[2024-10-13 20:28] VITALS: BP 104/62; TEMP 98.1; O2SAT 99
[2024-10-13 23:31] VITALS: O2SAT 98
[2024-10-13 23:32] VITALS: O2SAT 98
[2024-10-14 08:28] VITALS: BP 108/54; TEMP 99.1; O2SAT 100
[2024-10-14 10:57] VITALS: O2SAT 100; O2SAT 98
[2024-10-14 19:39] VITALS: BP 115/83; TEMP 97.5; O2SAT 100
[2024-10-14 22:17] VITALS: O2SAT 100; O2SAT 98
[2024-10-15 07:45] VITALS: BP 109/76; TEMP 98.1; O2SAT 100
[2024-10-15 10:30] VITALS: O2SAT 100; O2SAT 98
[2024-10-15 22:35] VITALS: O2SAT 100
[2024-10-16 07:50] VITALS: BP 102/68; TEMP 98.1; O2SAT 100
[2024-10-16 10:28] VITALS: O2SAT 100
[2024-10-16 11:31] VITALS: O2SAT 100
[2024-10-16 20:57] VITALS: BP 109/59; TEMP 97.9; O2SAT 98
[2024-10-16 23:00] VITALS: O2SAT 100
[2024-10-16 23:01] VITALS: O2SAT 100
[2024-10-17 07:43] VITALS: BP 101/59; TEMP 98.4; O2SAT 100
[2024-10-17 10:24] VITALS: O2SAT 100
[2024-10-17 12:04] VITALS: O2SAT 100
[2024-10-17 18:59] VITALS: BP 134/55; TEMP 98.6; O2SAT 100
[2024-10-17 23:51] VITALS: O2SAT 99
[2024-10-18 07:42] VITALS: BP 98/60; TEMP 98.1; O2SAT 100
[2024-10-18 10:37] VITALS: O2SAT 100
[2024-10-18 11:32] VITALS: O2SAT 99
[2024-10-18 19:08] VITALS: BP 107/69; TEMP 97.7; O2SAT 100
[2024-10-18 23:25] VITALS: O2SAT 100
[2024-10-19 07:29] VITALS: BP 118/70; TEMP 98.3; O2SAT 99
[2024-10-19 10:24] VITALS: O2SAT 99
[2024-10-19 10:53] VITALS: O2SAT 100
[2024-10-19 11:30] VITALS: RESP 20; O2SAT 100
[2024-10-19 19:15] VITALS: BP 99/61; TEMP 97.7; O2SAT 100
[2024-10-19 23:01] VITALS: O2SAT 100
[2024-10-20 07:51] VITALS: BP 124/84; TEMP 98.2; O2SAT 100
[2024-10-20 19:33] VITALS: BP 102/72; TEMP 97.5; O2SAT 100
[2024-10-20 22:08] VITALS: O2SAT 100
[2024-10-21 10:20] VITALS: O2SAT 100
[2024-10-21 11:28] VITALS: O2SAT 99
[2024-10-21 20:00] VITALS: BP 109/75; TEMP 97.5; O2SAT 99
[2024-10-21 23:39] VITALS: O2SAT 96
[2024-10-21 23:40] VITALS: O2SAT 99
[2024-10-22 07:51] VITALS: BP 136/79; TEMP 98.3; O2SAT 97
[2024-10-22 10:40] VITALS: O2SAT 100
[2024-10-22 20:00] VITALS: BP 99/59; TEMP 97.5; O2SAT 99
[2024-10-22 23:15] VITALS: O2SAT 100
[2024-10-23 07:40] VITALS: BP 108/68; TEMP 97.5; O2SAT 100
[2024-10-23 10:24] VITALS: O2SAT 100
[2024-10-23 11:07] VITALS: O2SAT 100
[2024-10-23 19:55] VITALS: BP 98/72; TEMP 97.6; O2SAT 95
[2024-10-23 20:00] VITALS: BP 104/64; TEMP 98; O2SAT 99
[2024-10-23 23:08] VITALS: O2SAT 100
[2024-10-24 07:23] VITALS: BP 116/80; TEMP 97.7; O2SAT 99
[2024-10-24 10:54] VITALS: O2SAT 99
[2024-10-24 20:01] VITALS: BP 99/63; TEMP 97.7; O2SAT 99
[2024-10-24 23:01] VITALS: O2SAT 100
[2024-10-25 10:40] VITALS: O2SAT 100
[2024-10-25 19:12] VITALS: BP 110/76; TEMP 98.8; O2SAT 100
[2024-10-25 23:35] VITALS: O2SAT 100
[2024-10-25 23:53] VITALS: BP 110/76; TEMP 98.8; O2SAT 100
[2024-10-26 07:20] VITALS: BP 116/73; TEMP 97.9; O2SAT 98
[2024-10-26 10:32] VITALS: O2SAT 100
[2024-10-26 20:33] VITALS: BP 108/72; TEMP 98.6; O2SAT 99
[2024-10-26 22:28] VITALS: O2SAT 98
[2024-10-26 22:29] VITALS: O2SAT 98
[2024-10-27 07:34] VITALS: BP 128/71; TEMP 98.6; O2SAT 99
[2024-10-27 10:10] VITALS: O2SAT 100; O2SAT 99
[2024-10-27 20:00] VITALS: BP 98/60; TEMP 99.1; O2SAT 99
[2024-10-27 22:12] VITALS: O2SAT 97
[2024-10-27 22:13] VITALS: O2SAT 97
[2024-10-28 08:00] VITALS: BP 112/64; TEMP 97.7; O2SAT 100
[2024-10-28 10:55] VITALS: O2SAT 100; O2SAT 99
[2024-10-28 20:00] VITALS: BP 99/57; TEMP 97.6; O2SAT 99
[2024-10-28 22:48] VITALS: O2SAT 98
[2024-10-28 23:51] VITALS: O2SAT 98
[2024-10-29 07:57] VITALS: BP 98/58; TEMP 97.7; O2SAT 98
[2024-10-29 10:40] VITALS: O2SAT 100
[2024-10-29 10:41] VITALS: O2SAT 100
[2024-10-29 20:11] VITALS: BP 110/57; TEMP 97.8; O2SAT 100
[2024-10-29 22:32] VITALS: O2SAT 100
[2024-10-29 22:33] VITALS: O2SAT 100
[2024-10-30 07:25] VITALS: BP 96/74; TEMP 98.1; O2SAT 100
[2024-10-30 10:12] VITALS: O2SAT 100
[2024-10-30 20:00] VITALS: BP 99/59; TEMP 97.5; O2SAT 99
[2024-10-31] VITALS (8 sets, daily range): BP systolic 105–129; BP diastolic 64–79; TEMP 97.5; O2SAT 99–100
[2024-11-01 07:32] VITALS: BP 105/61; TEMP 97.6; O2SAT 100
[2024-11-01 11:08] VITALS: O2SAT 100
[2024-11-01 20:16] VITALS: BP 131/76; TEMP 97.5; O2SAT 100
[2024-11-01 23:44] VITALS: O2SAT 100
[2024-11-02 07:39] VITALS: BP 103/74; TEMP 98.1; O2SAT 100
[2024-11-02 10:27] VITALS: O2SAT 100
[2024-11-02 11:37] VITALS: O2SAT 100
[2024-11-02 20:51] VITALS: BP 92/66; TEMP 97.7; O2SAT 98
[2024-11-02 23:49] VITALS: O2SAT 100
[2024-11-03 07:42] VITALS: BP 107/87; TEMP 98.6; O2SAT 100
[2024-11-03 10:29] VITALS: O2SAT 100
[2024-11-03 19:57] VITALS: BP 100/61; TEMP 97.7; O2SAT 100
[2024-11-03 23:46] VITALS: O2SAT 100
[2024-11-04 07:29] VITALS: BP 106/72; TEMP 98.8; O2SAT 100
[2024-11-04 10:15] VITALS: O2SAT 100
[2024-11-04 22:00] VITALS: BP 139/82; TEMP 97.9; O2SAT 99
[2024-11-04 22:48] VITALS: O2SAT 98
[2024-11-04 22:51] VITALS: O2SAT 98
[2024-11-05 08:57] VITALS: BP 104/64; TEMP 97.7; O2SAT 100
[2024-11-05 10:22] VITALS: O2SAT 100
[2024-11-05 19:46] VITALS: BP 100/60; TEMP 97.9; O2SAT 99
[2024-11-05 22:33] VITALS: O2SAT 99
[2024-11-05 22:34] VITALS: O2SAT 99
[2024-11-06 07:37] VITALS: BP 113/70; TEMP 97.9; O2SAT 100
[2024-11-06 10:24] VITALS: O2SAT 99
[2024-11-06 11:01] VITALS: O2SAT 100
[2024-11-06 19:34] VITALS: BP 107/62; TEMP 97.3; O2SAT 99
[2024-11-06 23:26] VITALS: O2SAT 100
[2024-11-07 07:36] VITALS: BP 125/79; TEMP 98.2; O2SAT 100
[2024-11-07 10:50] VITALS: O2SAT 99
[2024-11-07 15:37] VITALS: O2SAT 100
[2024-11-07 19:55] VITALS: BP 98/54; TEMP 98.2; O2SAT 97
[2024-11-08 00:02] VITALS: O2SAT 100
[2024-11-08 07:58] VITALS: BP 103/58; TEMP 97.9; O2SAT 100
[2024-11-08 10:27] VITALS: O2SAT 100
[2024-11-08 23:32] VITALS: O2SAT 100
[2024-11-09 07:40] VITALS: BP 107/70; TEMP 97.9; O2SAT 100
[2024-11-09 10:13] VITALS: O2SAT 100
[2024-11-09 20:31] VITALS: BP 98/61; TEMP 97.5; O2SAT 99
[2024-11-09 22:24] VITALS: O2SAT 100
[2024-11-09 22:25] VITALS: O2SAT 100
[2024-11-10 07:35] VITALS: BP 119/54; TEMP 97.5; O2SAT 100
[2024-11-10 10:35] VITALS: O2SAT 100
[2024-11-10 11:31] VITALS: O2SAT 100
[2024-11-10 20:06] VITALS: BP 119/73; TEMP 97.9; O2SAT 100
[2024-11-10 22:54] VITALS: O2SAT 100
[2024-11-10 22:55] VITALS: O2SAT 100
[2024-11-11 07:30] VITALS: BP 101/85; TEMP 97.9; O2SAT 100
[2024-11-11 10:11] VITALS: O2SAT 100
[2024-11-11 19:37] VITALS: BP 100/62; TEMP 98.8; O2SAT 96
[2024-11-11 22:15] VITALS: O2SAT 100
[2024-11-12 07:42] VITALS: BP 106/56; TEMP 98.2; O2SAT 100
[2024-11-12 10:54] VITALS: O2SAT 100
[2024-11-12 19:54] VITALS: BP 98/66; TEMP 98.1; O2SAT 100
[2024-11-12 20:00] VITALS: BP 98/66; TEMP 98.1; O2SAT 100
[2024-11-12 22:17] VITALS: O2SAT 100
[2024-11-13 07:25] VITALS: BP 103/71; TEMP 98.2; O2SAT 100
[2024-11-13 10:19] VITALS: O2SAT 100
[2024-11-13 20:04] VITALS: BP 99/68; TEMP 97.9; O2SAT 98
[2024-11-13 20:20] VITALS: O2SAT 99
[2024-11-14 01:52] VITALS: O2SAT 100
[2024-11-14 07:26] VITALS: BP 95/61; TEMP 97.9; O2SAT 98
[2024-11-14 12:15] VITALS: O2SAT 100
[2024-11-14 20:22] VITALS: BP 97/61; TEMP 98.2; O2SAT 100
[2024-11-14 23:22] VITALS: O2SAT 100
[2024-11-14 23:23] VITALS: O2SAT 100
[2024-11-15 07:59] VITALS: BP 98/59; TEMP 97.1; O2SAT 100
[2024-11-15 10:17] VITALS: O2SAT 100
[2024-11-15 19:34] VITALS: BP 116/70; TEMP 98.4; O2SAT 100
[2024-11-16 01:49] VITALS: O2SAT 100
[2024-11-16 07:10] VITALS: O2SAT 100
[2024-11-16 07:48] VITALS: BP 98/77; TEMP 98.4; O2SAT 98
[2024-11-16 11:41] VITALS: O2SAT 100
[2024-11-16 19:25] VITALS: BP 117/68; TEMP 98.6; O2SAT 100
[2024-11-16 23:26] VITALS: O2SAT 99
[2024-11-17 07:35] VITALS: BP 95/55; TEMP 97.9; O2SAT 100
[2024-11-17 10:04] VITALS: O2SAT 100
[2024-11-17 19:25] VITALS: BP 104/75; TEMP 98.1; O2SAT 100
[2024-11-17 23:23] VITALS: O2SAT 100
[2024-11-18 08:00] VITALS: BP 99/60; TEMP 98.4; O2SAT 99
[2024-11-18 10:35] VITALS: O2SAT 100
[2024-11-18 19:35] VITALS: BP 97/59; TEMP 97.3; O2SAT 100
[2024-11-18 23:26] VITALS: O2SAT 100
[2024-11-18 23:27] VITALS: O2SAT 100
[2024-11-19 08:07] VITALS: BP 115/76; TEMP 98.1; O2SAT 100
[2024-11-19 10:55] VITALS: O2SAT 100
[2024-11-19 11:39] VITALS: RESP 16; O2SAT 100
[2024-11-19 19:36] VITALS: BP 110/59; TEMP 98.4; O2SAT 100
[2024-11-19 22:48] VITALS: O2SAT 100
[2024-11-19 23:46] VITALS: O2SAT 100
[2024-11-20 08:00] VITALS: BP 103/60; TEMP 97.4; O2SAT 100
[2024-11-20 10:32] VITALS: O2SAT 100
[2024-11-20 11:31] VITALS: O2SAT 100
[2024-11-20 22:38] VITALS: BP 123/88; TEMP 97.7; O2SAT 99
[2024-11-20 22:42] VITALS: O2SAT 100
[2024-11-20 22:45] VITALS: O2SAT 100
[2024-11-21 08:34] VITALS: BP 114/58; TEMP 97.9; O2SAT 100
[2024-11-21 10:22] VITALS: O2SAT 100
[2024-11-21 19:03] VITALS: BP 102/60; TEMP 99.1; O2SAT 100
[2024-11-21 22:17] VITALS: O2SAT 100
[2024-11-22] MEDS: BACI/NEOM/POLY B OINT PKT 1 UDPKT PACKET TP SCH (09:00)
[2024-11-22 10:26] VITALS: O2SAT 100
[2024-11-22 19:01] VITALS: BP 143/87; TEMP 98.8; O2SAT 99
[2024-11-22 19:22] VITALS: BP 125/75; TEMP 97.7; O2SAT 100
[2024-11-22 23:28] VITALS: O2SAT 98
[2024-11-23 08:00] VITALS: BP 118/73; TEMP 98.6; O2SAT 100
[2024-11-23 10:46] VITALS: O2SAT 100
[2024-11-23 19:16] VITALS: BP 129/88; TEMP 99; O2SAT 99
[2024-11-23 22:37] VITALS: O2SAT 100
[2024-11-24 08:36] VITALS: BP 118/42; TEMP 97.7; O2SAT 98
[2024-11-24 11:26] VITALS: O2SAT 100
[2024-11-24 19:24] VITALS: BP 122/75; TEMP 98.2; O2SAT 99
[2024-11-24 22:25] VITALS: O2SAT 100
[2024-11-25 07:43] VITALS: BP 106/76; TEMP 98.6; O2SAT 100
[2024-11-25 10:20] VITALS: O2SAT 100
[2024-11-25 19:30] VITALS: BP 102/63; TEMP 98.1; O2SAT 98
[2024-11-25 22:39] VITALS: O2SAT 98
[2024-11-26 10:42] VITALS: O2SAT 100
[2024-11-26 19:39] VITALS: BP 115/80; TEMP 98.4; O2SAT 100
[2024-11-26 23:30] VITALS: O2SAT 100; O2SAT 99
[2024-11-27 07:38] VITALS: BP 110/74; TEMP 97.9; O2SAT 100
[2024-11-27 10:25] VITALS: O2SAT 100
[2024-11-27 20:01] VITALS: BP 105/60; TEMP 97.9; O2SAT 100
[2024-11-27 22:35] VITALS: O2SAT 100
[2024-11-27 22:38] VITALS: O2SAT 100
[2024-11-28 07:50] VITALS: BP 107/82; TEMP 97.9; O2SAT 100
[2024-11-28 10:40] VITALS: O2SAT 100
[2024-11-28 20:16] VITALS: BP 114/90; TEMP 98.4; O2SAT 100
[2024-11-28 23:47] VITALS: O2SAT 100
[2024-11-28 23:48] VITALS: O2SAT 100
[2024-11-29 07:47] VITALS: BP 116/76; TEMP 98.2; O2SAT 99
[2024-11-29 10:07] VITALS: O2SAT 100; O2SAT 99
[2024-11-29] MEDS ORDERED: ACETAMINOPHEN 650 MG/20 ML UDC- SA PATIENTS-FEVER ONLY GT PRN (13:00)
[2024-11-29 20:03] VITALS: BP 101/54; TEMP 97.9; O2SAT 99
[2024-11-29 23:40] VITALS: O2SAT 100
[2024-11-30 07:48] VITALS: BP 106/82; TEMP 98.6; O2SAT 99
[2024-11-30 10:04] VITALS: O2SAT 100
[2024-11-30 20:39] VITALS: BP 120/85; TEMP 99.1; O2SAT 98
[2024-11-30 23:33] VITALS: O2SAT 100
[2024-12-01 07:21] VITALS: BP 96/69; TEMP 98.8; O2SAT 98
[2024-12-01 10:56] VITALS: O2SAT 99
[2024-12-01 19:57] VITALS: BP 98/66; TEMP 98.2; O2SAT 99
[2024-12-01 23:22] VITALS: O2SAT 100
[2024-12-02 07:34] VITALS: BP 115/83; TEMP 97.9; O2SAT 100
[2024-12-02 09:25] VITALS: O2SAT 99
[2024-12-02 10:07] VITALS: O2SAT 100
[2024-12-02 20:01] VITALS: BP 109/70; TEMP 98.4; O2SAT 99
[2024-12-02 20:08] VITALS: BP 109/70; TEMP 98.4; O2SAT 99
[2024-12-02 22:04] VITALS: O2SAT 100
[2024-12-03 07:17] VITALS: BP 102/81; TEMP 97.8; O2SAT 98
[2024-12-03 09:26] VITALS: O2SAT 100
[2024-12-03 10:00] VITALS: BP 102/81; TEMP 97.8; O2SAT 100
[2024-12-03 10:28] VITALS: O2SAT 100
[2024-12-03 22:21] VITALS: O2SAT 100
[2024-12-04 07:23] VITALS: BP 104/65; TEMP 98.6; O2SAT 96
[2024-12-04 08:54] VITALS: O2SAT 100
[2024-12-04 10:17] VITALS: O2SAT 100
[2024-12-04 19:53] VITALS: BP 124/87; TEMP 98.1; O2SAT 96
[2024-12-04 22:14] VITALS: O2SAT 100
[2024-12-05 08:41] VITALS: BP 95/55; TEMP 98.6; O2SAT 100
[2024-12-05 10:06] VITALS: O2SAT 99
[2024-12-05 19:50] VITALS: BP 108/71; TEMP 98.6; O2SAT 100
[2024-12-05 23:21] VITALS: O2SAT 100
[2024-12-06 07:49] VITALS: BP 93/70; TEMP 98.2; O2SAT 100
[2024-12-06 10:21] VITALS: O2SAT 99
[2024-12-06 11:32] VITALS: O2SAT 99
[2024-12-06 19:54] VITALS: BP 99/63; TEMP 97.9; O2SAT 96
[2024-12-07] VITALS (7 sets, daily range): BP systolic 98–99; BP diastolic 48–70; TEMP 97.7–98; O2SAT 99–100
[2024-12-08 08:00] VITALS: BP 133/91; TEMP 97.1; O2SAT 99
[2024-12-08] MEDS: NEOMY SULF/BACITRAC ZN/POLY 15 GM TUBE TP SCH (09:20)
[2024-12-08 11:34] VITALS: O2SAT 100; O2SAT 99
[2024-12-08 22:06] VITALS: O2SAT 100
[2024-12-08 22:07] VITALS: O2SAT 100
[2024-12-09 08:00] VITALS: BP 100/76; TEMP 98.2; O2SAT 100
[2024-12-09 10:31] VITALS: O2SAT 100
[2024-12-09 22:14] VITALS: O2SAT 100; O2SAT 99
[2024-12-10 08:24] VITALS: BP 110/78; TEMP 97.9; O2SAT 100
[2024-12-10 10:04] VITALS: O2SAT 99
[2024-12-10 20:24] VITALS: BP 102/59; TEMP 97.9; O2SAT 100
[2024-12-10 22:49] VITALS: O2SAT 100
[2024-12-11 08:00] VITALS: BP 105/58; TEMP 98.4; O2SAT 100
[2024-12-11 10:18] VITALS: O2SAT 99
[2024-12-11 19:54] VITALS: BP 98/72; TEMP 97.7; O2SAT 100
[2024-12-12] VITALS (8 sets, daily range): BP systolic 115–150; BP diastolic 74–80; TEMP 98–98.1; O2SAT 99–100
[2024-12-13 07:03] VITALS: BP 115/74; TEMP 98.1; O2SAT 100
[2024-12-13 07:23] VITALS: BP 129/80; TEMP 98.1; O2SAT 100
[2024-12-13 10:12] VITALS: O2SAT 99
[2024-12-13 10:13] VITALS: O2SAT 100
[2024-12-13 19:47] VITALS: BP 97/76; TEMP 99.1; O2SAT 100
[2024-12-13 21:12] VITALS: O2SAT 100
[2024-12-14 01:52] VITALS: O2SAT 100
[2024-12-14 07:47] VITALS: BP 104/67; TEMP 98.6; O2SAT 100
[2024-12-14 10:26] VITALS: O2SAT 98
[2024-12-14 19:46] VITALS: BP 106/72; TEMP 98.6; O2SAT 99
[2024-12-14 23:34] VITALS: O2SAT 99
[2024-12-15 07:39] VITALS: BP 107/69; TEMP 99; O2SAT 98
[2024-12-15 10:00] VITALS: BP 107/69; TEMP 98.6
[2024-12-15 11:09] VITALS: O2SAT 97
[2024-12-15 19:59] VITALS: BP 105/57; TEMP 97.7; O2SAT 98
[2024-12-15 23:30] VITALS: O2SAT 100
[2024-12-16 07:39] VITALS: BP 113/52; TEMP 97.9; O2SAT 100
[2024-12-16 10:23] VITALS: O2SAT 100; O2SAT 97
[2024-12-16 21:18] VITALS: BP 114/85; TEMP 97.5; O2SAT 100
[2024-12-16 22:19] VITALS: O2SAT 100
[2024-12-17 08:28] VITALS: BP 94/58; TEMP 97.7; O2SAT 100
[2024-12-17 10:22] VITALS: O2SAT 100
[2024-12-17 20:35] VITALS: BP 120/79; TEMP 97.5; O2SAT 100
[2024-12-17 22:01] VITALS: O2SAT 100
[2024-12-17 22:02] VITALS: O2SAT 100
[2024-12-17 22:14] VITALS: BP 120/79; TEMP 97.5; O2SAT 100
[2024-12-18] VITALS (7 sets, daily range): BP systolic 94–125; BP diastolic 68–75; TEMP 98.1–98.6; O2SAT 100
[2024-12-19 07:26] VITALS: BP 103/79; TEMP 98.8; O2SAT 99
[2024-12-19 10:01] VITALS: O2SAT 100
[2024-12-19 10:51] VITALS: RESP 22; O2SAT 100
[2024-12-19 11:32] VITALS: O2SAT 100
[2024-12-19 20:00] VITALS: BP 103/65; TEMP 98.4; O2SAT 99
[2024-12-19 23:49] VITALS: O2SAT 100
[2024-12-20 07:43] VITALS: BP 89/59; TEMP 98.1; O2SAT 100
[2024-12-20 10:06] VITALS: O2SAT 100
[2024-12-20 19:53] VITALS: BP 98/58; TEMP 97.5; O2SAT 100
[2024-12-21] VITALS (8 sets, daily range): BP systolic 106–121; BP diastolic 63–67; TEMP 97.5–98.2; O2SAT 99–100
[2024-12-22 07:28] VITALS: BP 108/79; TEMP 97.9; O2SAT 99
[2024-12-22 10:34] VITALS: O2SAT 99
[2024-12-22 11:34] VITALS: O2SAT 99
[2024-12-22 19:44] VITALS: BP 99/61; TEMP 97.7; O2SAT 100
[2024-12-22 22:17] VITALS: O2SAT 100
[2024-12-22 22:23] VITALS: O2SAT 100
[2024-12-23 07:56] VITALS: BP_SYST 103; BP_SYST 89; BP_DIAS 69; TEMP 98.1; O2SAT 100
[2024-12-23 10:03] VITALS: O2SAT 99
[2024-12-23 20:02] VITALS: BP 121/78; TEMP 97.7; O2SAT 99
[2024-12-23 22:20] VITALS: O2SAT 99
[2024-12-24 07:44] VITALS: BP 109/69; TEMP 97.9; O2SAT 99
[2024-12-24 10:30] VITALS: O2SAT 100
[2024-12-24 20:42] VITALS: BP 116/85; TEMP 97.7; O2SAT 100
[2024-12-24 22:15] VITALS: O2SAT 100
[2024-12-24 22:31] VITALS: O2SAT 100
[2024-12-25 07:14] VITALS: BP 117/77; TEMP 97.6; O2SAT 100
[2024-12-25 10:26] VITALS: O2SAT 100
[2024-12-25 20:44] VITALS: BP 126/64; TEMP 98.1; O2SAT 98
[2024-12-25] MEDS: NYSTATIN TOP POWDER 15 GM BOTTLE TP SCH (20:54)
[2024-12-25 23:25] VITALS: O2SAT 100
[2024-12-26 07:04] VITALS: BP 106/67; TEMP 97.8; O2SAT 99
[2024-12-26 10:24] VITALS: O2SAT 100
[2024-12-26 11:15] VITALS: O2SAT 100
[2024-12-26 19:29] VITALS: BP 98/56; TEMP 97.6; O2SAT 100
[2024-12-26 20:00] VITALS: BP 98/56; TEMP 97.6; O2SAT 100
[2024-12-26 20:38] VITALS: O2SAT 100
[2024-12-27 02:09] VITALS: O2SAT 100
[2024-12-27 07:33] VITALS: BP 116/70; TEMP 97.7; O2SAT 99
[2024-12-27 08:00] LABS: CALCIUM, SERUM 8.6 mg/dL (8.5-10.1); CREATININE 0.7 mg/dL (0.6-1.3); PLATELET COUNT (AUTO) 255 K/uL (150-450); RED BLOOD CELL COUNT(AUTO) 4.11 MIL/uL (4.5-6.0); RED CELL DISTRIBUTION WIDTH 16.5 % (11.5-15.0); SODIUM SERUM 137.0 mmol/L (136-145); UREA NITROGEN, BLOOD 24.0 mg/dL (7-18); WHITE BLOOD COUNT (AUTO) 8.2 K/uL (4.3-11.0)
[2024-12-27 10:28] VITALS: O2SAT 100
[2024-12-27 21:00] VITALS: BP 99/71; TEMP 97.6; O2SAT 100
[2024-12-27 23:47] VITALS: O2SAT 100
[2024-12-28 07:35] VITALS: BP 97/56; TEMP 97.9; O2SAT 100
[2024-12-28 10:26] VITALS: O2SAT 100
[2024-12-28 19:36] VITALS: BP 105/76; TEMP 97.7; O2SAT 100
[2024-12-28 23:46] VITALS: O2SAT 100
[2024-12-29 07:55] VITALS: BP 97/64; TEMP 98.1; O2SAT 100
[2024-12-29 10:00] VITALS: O2SAT 100
[2024-12-29 20:15] VITALS: BP 110/56; TEMP 97.3; O2SAT 100
[2024-12-29 23:48] VITALS: O2SAT 100
[2024-12-30 07:32] VITALS: BP 113/55; TEMP 97.9; O2SAT 100
[2024-12-30 10:14] VITALS: O2SAT 100
[2024-12-30 19:35] VITALS: BP 102/54; TEMP 97.4; O2SAT 97
[2024-12-30 22:41] VITALS: O2SAT 98
[2024-12-31] VITALS (8 sets, daily range): BP systolic 93–106; BP diastolic 65–74; TEMP 97.8–98.4; O2SAT 100
[2025-01-01 09:07] VITALS: BP 109/60; TEMP 98.4; O2SAT 100
[2025-01-01 10:05] VITALS: O2SAT 99
[2025-01-01 19:36] VITALS: BP 97/80; TEMP 97.7; O2SAT 100
[2025-01-01 22:15] VITALS: O2SAT 100
[2025-01-02 08:07] VITALS: BP 116/69; TEMP 97.7; O2SAT 100
[2025-01-02 10:19] VITALS: O2SAT 100
[2025-01-02 20:34] VITALS: O2SAT 100
[2025-01-02 20:43] VITALS: BP 131/88; TEMP 97.5; O2SAT 100
[2025-01-02 23:44] VITALS: O2SAT 100
[2025-01-03 08:08] VITALS: BP 106/78; TEMP 98; O2SAT 100
[2025-01-03 10:09] VITALS: O2SAT 100
[2025-01-03 19:52] VITALS: BP 121/80; TEMP 97.9; O2SAT 100
[2025-01-03 23:44] VITALS: O2SAT 100
[2025-01-04 07:37] VITALS: BP 159/90; TEMP 98.1; O2SAT 100
[2025-01-04 11:09] VITALS: O2SAT 100
[2025-01-04 19:41] VITALS: BP 97/54; TEMP 97.9; O2SAT 100
[2025-01-04 21:59] VITALS: O2SAT 100
[2025-01-04 22:10] VITALS: O2SAT 100
[2025-01-05 07:31] VITALS: BP 104/52; TEMP 98.1; O2SAT 100
[2025-01-05 11:04] VITALS: O2SAT 100
[2025-01-05 19:45] VITALS: BP 111/66; TEMP 97.5; O2SAT 100
[2025-01-05 22:14] VITALS: O2SAT 100
[2025-01-05 22:15] VITALS: O2SAT 100
[2025-01-06 08:21] VITALS: BP 115/62; TEMP 97.7; O2SAT 100
[2025-01-06 10:45] VITALS: O2SAT 100
[2025-01-06 19:25] VITALS: BP 98/57; TEMP 97.8; O2SAT 100
[2025-01-06 22:49] VITALS: O2SAT 100
[2025-01-06 22:51] VITALS: O2SAT 100
[2025-01-07 07:40] VITALS: BP 105/69; TEMP 98.1; O2SAT 100
[2025-01-07 08:08] VITALS: BP 101/59; TEMP 98.9; O2SAT 99
[2025-01-07 11:05] VITALS: O2SAT 100
[2025-01-07 20:10] VITALS: BP 119/73; TEMP 97.4; O2SAT 100
[2025-01-07 23:52] VITALS: O2SAT 100
[2025-01-08 08:00] VITALS: BP 101/60; TEMP 98; O2SAT 99
[2025-01-08 10:41] VITALS: O2SAT 99
[2025-01-08 11:42] VITALS: O2SAT 99
[2025-01-08 20:10] VITALS: BP 102/79; TEMP 97.6; O2SAT 100
[2025-01-08 23:20] VITALS: O2SAT 100
[2025-01-09 07:16] VITALS: BP 124/76; TEMP 97.8; O2SAT 100
[2025-01-09 10:00] VITALS: BP 124/76; TEMP 98.3; O2SAT 100
[2025-01-09 10:50] VITALS: O2SAT 100
[2025-01-09 19:33] VITALS: BP 115/70; TEMP 98.6; O2SAT 100
[2025-01-09 20:32] VITALS: O2SAT 100
[2025-01-10 01:54] VITALS: O2SAT 100
[2025-01-10 08:42] VITALS: BP_SYST 101; BP_SYST 96; BP_DIAS 56; BP_DIAS 63; TEMP 98; TEMP 98.1; O2SAT 99
[2025-01-10 10:36] VITALS: O2SAT 100
[2025-01-10 19:39] VITALS: BP 124/63; TEMP 98.6; O2SAT 100
[2025-01-10 23:52] VITALS: O2SAT 100
[2025-01-11 01:45] VITALS: O2SAT 100
[2025-01-11 08:00] VITALS: BP 105/74; TEMP 97.7; O2SAT 99
[2025-01-11 10:28] VITALS: O2SAT 100
[2025-01-11 19:51] VITALS: BP 101/64; TEMP 99.3; O2SAT 100
[2025-01-11 23:21] VITALS: O2SAT 100
[2025-01-12 07:30] VITALS: BP 129/79; TEMP 97.9; O2SAT 99
[2025-01-12 10:41] VITALS: O2SAT 100
[2025-01-12 19:47] VITALS: BP 102/60; TEMP 98.4; O2SAT 100
[2025-01-12 23:48] VITALS: O2SAT 100
[2025-01-13 07:32] VITALS: BP 128/82; TEMP 97.9; O2SAT 100
[2025-01-13 10:15] VITALS: O2SAT 100
[2025-01-13 20:00] VITALS: BP 99/75; TEMP 98.1; O2SAT 99
[2025-01-13 22:48] VITALS: O2SAT 100
[2025-01-13 22:49] VITALS: O2SAT 100
[2025-01-14 07:34] VITALS: BP 103/73; TEMP 97.7; O2SAT 100
[2025-01-14 11:40] VITALS: O2SAT 100
[2025-01-14 20:00] VITALS: BP 102/63; TEMP 98.1; O2SAT 99
[2025-01-14 23:27] VITALS: O2SAT 100
[2025-01-15 07:27] VITALS: BP 102/69; TEMP 98.4; O2SAT 99
[2025-01-15 11:36] VITALS: O2SAT 99
[2025-01-15 20:27] VITALS: BP 105/70; TEMP 97.8; O2SAT 100
[2025-01-15 23:22] VITALS: O2SAT 100
[2025-01-16 07:33] VITALS: BP 105/80; TEMP 98.1; O2SAT 100
[2025-01-16 10:02] VITALS: O2SAT 99
[2025-01-16 19:46] VITALS: BP 100/70; TEMP 98.8; O2SAT 100
[2025-01-17 00:03] VITALS: O2SAT 100
[2025-01-17 07:50] VITALS: BP 98/70; TEMP 97.9; O2SAT 98
[2025-01-17 10:13] VITALS: O2SAT 100
[2025-01-17 19:13] VITALS: BP 97/57; TEMP 98.4; O2SAT 100
[2025-01-17 22:54] VITALS: O2SAT 100
[2025-01-18 07:09] VITALS: BP 109/78; TEMP 98.2; O2SAT 100
[2025-01-18 10:27] VITALS: O2SAT 100
[2025-01-18 11:31] VITALS: O2SAT 100
[2025-01-18 19:48] VITALS: BP 118/80; TEMP 98.6; O2SAT 100
[2025-01-18 23:18] VITALS: O2SAT 100
[2025-01-18 23:19] VITALS: O2SAT 100
[2025-01-19 07:31] VITALS: BP 113/67; TEMP 97.9; O2SAT 100
[2025-01-19 10:00] VITALS: O2SAT 100
[2025-01-19 11:10] VITALS: RESP 18; O2SAT 100
[2025-01-19 11:25] VITALS: O2SAT 100
[2025-01-19 20:00] VITALS: BP 108/63; TEMP 97.5; O2SAT 99
[2025-01-19 22:59] VITALS: O2SAT 100
[2025-01-20 07:30] VITALS: BP 110/83; TEMP 98.1; O2SAT 99
[2025-01-20 10:24] VITALS: O2SAT 100
[2025-01-20 20:00] VITALS: BP 99/78; TEMP 98.1; O2SAT 99
[2025-01-20 22:07] VITALS: O2SAT 100
[2025-01-20 22:12] VITALS: O2SAT 100
[2025-01-21 09:00] VITALS: BP 125/74; TEMP 98.6; O2SAT 100
[2025-01-21 10:40] VITALS: O2SAT 99
[2025-01-21 20:31] VITALS: BP 102/67; TEMP 98.1; O2SAT 100
[2025-01-21 23:13] VITALS: O2SAT 100
[2025-01-22 07:31] VITALS: BP 128/78; TEMP 98.6; O2SAT 100
[2025-01-22 10:09] VITALS: O2SAT 100
[2025-01-22 19:53] VITALS: O2SAT 100
[2025-01-22 20:00] VITALS: BP 98/59; TEMP 97.6; O2SAT 99
[2025-01-22 23:44] VITALS: O2SAT 100
[2025-01-23 07:18] VITALS: BP 109/79; TEMP 98.2; O2SAT 99
[2025-01-23 10:04] VITALS: O2SAT 99
[2025-01-23 19:42] VITALS: BP 97/64; TEMP 99; O2SAT 100
[2025-01-23 23:25] VITALS: O2SAT 100
[2025-01-23 23:26] VITALS: O2SAT 100
[2025-01-24 08:36] VITALS: BP 98/68; TEMP 98.6; O2SAT 97
[2025-01-24 10:35] VITALS: O2SAT 100; O2SAT 99
[2025-01-24 19:33] VITALS: BP 101/62; TEMP 99.1; O2SAT 100
[2025-01-24 23:45] VITALS: O2SAT 100
[2025-01-25 06:57] VITALS: BP 96/83; TEMP 97.6; O2SAT 100
[2025-01-25 10:24] VITALS: O2SAT 100
[2025-01-25 11:27] VITALS: O2SAT 99
[2025-01-25 19:42] VITALS: BP 98/54; TEMP 99.7; O2SAT 100
[2025-01-25 23:31] VITALS: O2SAT 98
[2025-01-26 07:48] VITALS: BP 126/81; TEMP 97.7; O2SAT 99
[2025-01-26 10:20] VITALS: O2SAT 100
[2025-01-26 19:41] VITALS: BP 97/61; TEMP 98.8; O2SAT 99
[2025-01-26 19:42] VITALS: BP 97/61; TEMP 98.8; O2SAT 99
[2025-01-26 22:25] VITALS: BP 97/61; TEMP 98.8; O2SAT 99
[2025-01-26 23:28] VITALS: O2SAT 100
[2025-01-27 07:47] VITALS: BP 98/66; TEMP 97.9; O2SAT 100
[2025-01-27 08:15] LABS: PLATELET COUNT (AUTO) 254 K/uL (150-450); RED BLOOD CELL COUNT(AUTO) 4.02 MIL/uL (4.5-6.0); RED CELL DISTRIBUTION WIDTH 15.5 % (11.5-15.0); WHITE BLOOD COUNT (AUTO) 8.3 K/uL (4.3-11.0)
[2025-01-27 08:29] LABS: CALCIUM, SERUM 8.5 mg/dL (8.5-10.1); CREATININE 0.8 mg/dL (0.6-1.3); SODIUM SERUM 139.0 mmol/L (136-145); UREA NITROGEN, BLOOD 23.0 mg/dL (7-18)
[2025-01-27 11:00] VITALS: O2SAT 100
[2025-01-27 20:00] VITALS: BP 110/66; TEMP 98; O2SAT 99
[2025-01-27 23:56] VITALS: O2SAT 100
[2025-01-28 07:15] VITALS: BP 121/72; TEMP 97.9; O2SAT 100
[2025-01-28 10:56] VITALS: O2SAT 100
[2025-01-28 20:00] VITALS: BP 106/75; TEMP 98.5; O2SAT 99
[2025-01-28 22:23] VITALS: O2SAT 99
[2025-01-28 22:24] VITALS: O2SAT 62
[2025-01-29 08:00] VITALS: BP 102/68; TEMP 97.6; O2SAT 100
[2025-01-29 10:41] VITALS: O2SAT 99
[2025-01-29 20:00] VITALS: BP 105/81; TEMP 97.9; O2SAT 99
[2025-01-29 23:09] VITALS: O2SAT 100
[2025-01-30 08:28] VITALS: BP 122/72; TEMP 97.9; O2SAT 100
[2025-01-30 10:20] VITALS: O2SAT 100; O2SAT 99
[2025-01-30 19:22] VITALS: BP 101/59; TEMP 98.2; O2SAT 100
[2025-01-30 23:09] VITALS: O2SAT 100
[2025-01-31 05:12] VITALS: O2SAT 100
[2025-01-31 08:00] VITALS: BP 98/58; TEMP 98.3; O2SAT 99
[2025-01-31 10:08] VITALS: O2SAT 100; O2SAT 99
[2025-01-31] MEDS: ONDANSETRON 4 MG TAB.RAPDIS GT PRN (18:29)
[2025-01-31] MEDS: BACI/NEOM/POLY B OINT PKT 1 UDPKT PACKET TP SCH (20:01)
[2025-01-31 21:13] VITALS: BP 98/64; TEMP 99; O2SAT 100
[2025-01-31 23:42] VITALS: O2SAT 100
[2025-02-01 08:00] VITALS: BP 98/67; TEMP 97.9; O2SAT 100
[2025-02-01 10:05] VITALS: O2SAT 100
[2025-02-01] MEDS: ALBUTEROL FS 2.5 MG/0.5 ML VIAL.NEB NEB PRN (15:55)
[2025-02-01] MEDS: IPRATROPIUM NEB FS 0.5 MG/2.5 ML AMPUL.NEB NEB PRN (15:55)
[2025-02-01] MEDS: ACETAMINOPHEN 650 MG/20 ML UDC- SA PATIENTS-PAIN ONLY GT PRN (16:27)
[2025-02-01 20:59] LABS: PLATELET COUNT (AUTO) 213 K/uL (150-450); RED BLOOD CELL COUNT(AUTO) 3.90 MIL/uL (4.5-6.0); RED CELL DISTRIBUTION WIDTH 16.0 % (11.5-15.0); WHITE BLOOD COUNT (AUTO) 10.7 K/uL (4.3-11.0)
[2025-02-01 21:17] LABS: ASPARTATE AMINOTRANSFERASE 59.0 U/L (15-37); CALCIUM, SERUM 8.2 mg/dL (8.5-10.1); CREATININE 0.9 mg/dL (0.6-1.3); SODIUM SERUM 136.0 mmol/L (136-145); TOTAL PROTEIN, SERUM 7.8 g/dL (6.4-8.2); UREA NITROGEN, BLOOD 26.0 mg/dL (7-18)
[2025-02-01 21:24] VITALS: BP 103/60; TEMP 99.8; O2SAT 100
[2025-02-01 22:23] VITALS: O2SAT 100
[2025-02-02 07:07] VITALS: BP 108/70; TEMP 99; O2SAT 100
[2025-02-02 10:15] VITALS: O2SAT 100; O2SAT 99
[2025-02-02 20:36] LABS: PLATELET COUNT (AUTO) 215 K/uL (150-450); RED BLOOD CELL COUNT(AUTO) 3.95 MIL/uL (4.5-6.0); RED CELL DISTRIBUTION WIDTH 16.0 % (11.5-15.0); WHITE BLOOD COUNT (AUTO) 13.7 K/uL (4.3-11.0)
[2025-02-02 20:50] LABS: CALCIUM, SERUM 8.3 mg/dL (8.5-10.1); CREATININE 0.8 mg/dL (0.6-1.3); SODIUM SERUM 136.0 mmol/L (136-145); UREA NITROGEN, BLOOD 23.0 mg/dL (7-18)
[2025-02-02 20:56] LABS: ASPARTATE AMINOTRANSFERASE 41.0 U/L (15-37); TOTAL PROTEIN, SERUM 8.1 g/dL (6.4-8.2)
[2025-02-02 22:00] VITALS: BP 98/56; TEMP 100; O2SAT 100
[2025-02-02] MEDS: PIPERACILLIN /TAZOBACTAM 4.5 G in IV D5W 50 ML IV ONE (22:00)
[2025-02-02 22:17] VITALS: O2SAT 100
[2025-02-03] MEDS ORDERED: PIPERACILLIN /TAZOBACTAM 4.5 G in IV D5W 50 ML IV ONE
[2025-02-03] MEDS: PIPERACILLIN /TAZOBACTAM 4.5 G in IV D5W 50 ML IV SCH ×2 (06:27→11:40)
[2025-02-03] MEDS ORDERED: IV NS 0.9% 1,000 ML IV PRN (06:30)
[2025-02-03 08:00] VITALS: BP 91/64; TEMP 98.1; O2SAT 99
[2025-02-03 10:27] VITALS: O2SAT 100; O2SAT 99
[2025-02-03 11:16] LABS: WHITE BLOOD COUNT (AUTO) 16.0 K/uL (4.3-11.0)
[2025-02-03 11:19] LABS: PLATELET COUNT (AUTO) 181 K/uL (150-450); RED BLOOD CELL COUNT(AUTO) 3.67 MIL/uL (4.5-6.0); RED CELL DISTRIBUTION WIDTH 16.7 % (11.5-15.0)
[2025-02-03 11:33] LABS: ASPARTATE AMINOTRANSFERASE 57.0 U/L (15-37); CALCIUM, SERUM 7.9 mg/dL (8.5-10.1); CREATININE 1.4 mg/dL (0.6-1.3); SODIUM SERUM 132.0 mmol/L (136-145); TOTAL PROTEIN, SERUM 7.5 g/dL (6.4-8.2); UREA NITROGEN, BLOOD 29.0 mg/dL (7-18)
[2025-02-03 12:01] LABS: EOSINOPHILS % (MANUAL) 1 % (0-4); LYMPHOCYTES % (MANUAL) 3 % (16-48); MONOCYTES % (MANUAL) 6 % (0-11.0); NEUTROPHILS % (MANUAL) 90 (42-76); PLATELET ESTIMATE ADEQUATE
[2025-02-03] MEDS ORDERED: ONDA-97 GT (16:23)
[2025-02-03] MEDS ORDERED: BACL10TA GT (16:23)
[2025-02-04] MEDS ORDERED: PANTOPRAZOLE 40 MG VIAL IV SCH (09:00)
== END 2025-02-03 12:00 | disposition short-term general hospital (02) | DRG 207 ==
LOC: SA 06-20 13:32 → UNDOLOA 02-03 13:50
PROVIDERS: ADMIT Internal Medicine; ATTEND Internal Medicine
PROC: 5A1955Z Respiratory Ventilation, Greater than 96 Consecutive Hours (ICD-10-PCS; principal; 2024-06-20)
DX: J96.10 Chronic respiratory failure, unspecified whether with hypoxia or hypercapnia (principal); G93.41 Metabolic encephalopathy; R40.3 Persistent vegetative state; D68.59 Other primary thrombophilia; E44.0 Moderate protein-calorie malnutrition; I48.20 Chronic atrial fibrillation, unspecified; Z99.11 Dependence on respirator [ventilator] status; G93.49 Other encephalopathy; J95.03 Malfunction of tracheostomy stoma; D63.8 Anemia in other chronic diseases classified elsewhere; E11.43 Type 2 diabetes mellitus with diabetic autonomic (poly)neuropathy; I69.398 Other sequelae of cerebral infarction; Z87.440 Personal history of urinary (tract) infections; E88.09 Other disorders of plasma-protein metabolism, not elsewhere classified; I50.9 Heart failure, unspecified; K21.9 Gastro-esophageal reflux disease without esophagitis; Z79.01 Long term (current) use of anticoagulants; Z93.1 Gastrostomy status; Z93.0 Tracheostomy status; J44.9 Chronic obstructive pulmonary disease, unspecified; K80.20 Calculus of gallbladder without cholecystitis without obstruction; R13.10 Dysphagia, unspecified
CPT/HCPCS: 31720; 36415; 71045-TC; 76705-TC; 80048-TC; 80053-TC; 80202-TC; 81001; 82565-TC; 82962-TC; 84520-TC; 85025-TC; 85027-TC; 86580-TC; 87040-TC; 87086-TC; 93970-TC; 94003-TC; 94640-TC; 94760-TC; 94761-TC; 94762-TC; 94799-TC; 97110-TC; 97530-TC; A4217; A4223; A4623; A6253; A7526; J1815; J2543; J3370; J7030; J7042; J7060; Q0162

== ENCOUNTER 2025-02-03 14:01 | Inpatient (IN) | payer MEDICARE, OTHER ==
[~2025-02-03] VITALS: Ht 170.2 cm; Wt 89.4 kg
[2025-02-03] VITALS (26 sets, daily range): BP systolic 88–121; BP diastolic 44–75; TEMP 97.5; O2SAT 99–100
[2025-02-03] MEDS ORDERED: PANTOPRAZOLE 40 MG VIAL ONE (15:02)
[2025-02-03] MEDS ORDERED: ONDANSETRON HCL/PF 4 MG/2 ML VIAL ONE (15:02)
[2025-02-03] MEDS: IV NS 0.9% 1,000 ML BAG IV ONE (15:08)
[2025-02-03] MEDS: ONDANSETRON HCL/PF 4 MG/2 ML VIAL IVP ONE (15:09)
[2025-02-03] MEDS: PANTOPRAZOLE 40 MG VIAL IV ONE (15:09)
[2025-02-03 15:43] LABS: PLATELET COUNT (AUTO) 158 K/uL (150-450); RED BLOOD CELL COUNT(AUTO) 3.53 MIL/uL (4.5-6.0); RED CELL DISTRIBUTION WIDTH 16.7 % (11.5-15.0); WHITE BLOOD COUNT (AUTO) 12.2 K/uL (4.3-11.0)
[2025-02-03 15:54] LABS: CALCIUM, SERUM 8.0 mg/dL (8.5-10.1); CREATININE 1.5 mg/dL (0.6-1.3); SODIUM SERUM 133 mmol/L (136-145); UREA NITROGEN, BLOOD 30 mg/dL (7-18)
[2025-02-03 15:54] LABS: APPEARANCE,URINE CLEAR (CLEAR); BLOOD, URINE TRACE-INTA Ery/uL (NEGATIVE); LEUKOCYTE ESTERASE ,URINE NEGATIVE (NEGATIVE); NITRITE, URINE NEGATIVE (NEGATIVE); UGLUCOSE NEGATIVE (NEGATIVE)
[2025-02-03 15:59] LABS: INR 1.32 (0.91-1.10)
[2025-02-03 16:00] LABS: ASPARTATE AMINOTRANSFERASE 36 U/L (15-37); TOTAL PROTEIN, SERUM 7.7 g/dL (6.4-8.2)
[2025-02-03 16:05] LABS: LACTIC ACID 2.0 mmol/L (0.4-2.0)
[2025-02-03 16:13] LABS: ADD URINE CULTURE NO; SQUAMOUS EPITHELIAL CELL,UR None Seen /HPF (None Seen)
[2025-02-03] MEDS ORDERED: ONDA-97 GT (16:23)
[2025-02-03] MEDS ORDERED: BACL10TA GT (16:23)
[2025-02-03 16:34] LABS: LYMPHOCYTES % (MANUAL) 1 % (16-48); MONOCYTES % (MANUAL) 5 % (0-11.0); NEUTROPHILS % (MANUAL) 94 (42-76); PLATELET ESTIMATE ADEQUATE
[2025-02-03] MEDS: PIPERACILLIN /TAZOBACTAM 3.375 G in IV D5W 50 ML IV ONE (16:49)
[2025-02-03] MEDS ORDERED: DOSING PER PHARMACY-VANCOMYCIN IV XX PRN (17:00)
[2025-02-03] MEDS ORDERED: DEXTROSE 50%-WATER 50 ML DISP.SYRIN IV PRN (17:00)
[2025-02-03] MEDS ORDERED: DOSING PER PHARMACY-CEFEPIME IVPB XX PRN (17:00)
[2025-02-03] MEDS ORDERED: ONDANSETRON HCL/PF 4 MG/2 ML VIAL IVP PRN (17:00)
[2025-02-03] MEDS ORDERED: NOREPINEPHRINE 8MG/250ML RTU 250 ML IV ONE (17:06)
[2025-02-03] MEDS: NOREPINEPHRINE 8 MG in IV NS 0.9% 250 ML IV ONE (17:18)
[2025-02-03] MEDS ORDERED: LACTULOSE 10 G/15 ML UDC (PYXIS) GT PRN (17:30)
[2025-02-03] MEDS ORDERED: BISACODYL SUPP (10 MG) 10 MG/SUPP.RECT SUPP.RECT RC PRN (17:30)
[2025-02-03] MEDS ORDERED: DOCUSATE SODIUM LIQ 100 MG/10 ML UDC GT PRN (17:30)
[2025-02-03] MEDS: VANCOMYCIN 750 MG in IV D5W 250 ML IV SCH (18:30)
[2025-02-03] MEDS: BLOOD SUGAR DIAGNOSTIC 1 EACH STRIP IN SCH (18:45)
[2025-02-03] MEDS: NOREPINEPHRINE 8 MG in IV D5W 242 ML IV PRN (19:17)
[2025-02-03] MEDS: IV NS 0.9% 1,000 ML IV PRN (19:29)
[2025-02-03] MEDS: JEVITY 1.2 CAL 1,000 ML BOTTLE GT SCH (20:56)
[2025-02-03] MEDS: CHLORHEXIDINE GLUCONATE 15 ML UDC MM SCH (21:07)
[2025-02-03] MEDS: ASCORBIC ACID 500 MG TABLET GT SCH (21:07)
[2025-02-03] MEDS: ALPRAZOLAM 0.5 MG TABLET GT SCH (21:07)
[2025-02-03] MEDS: PANTOPRAZOLE 40 MG VIAL IV SCH (21:11)
[2025-02-03] MEDS: CEFEPIME 2 GM in IV D5W 100 ML IV SCH (21:11)
[2025-02-03] MEDS: VITAMINS A AND D 56.7 GM TUBE TP SCH (21:34)
[2025-02-04] VITALS (85 sets, daily range): BP systolic 82–137; BP diastolic 50–84; TEMP 97–101.2; O2SAT 94–100
[2025-02-04 04:16] LABS: PLATELET COUNT (AUTO) 178 K/uL (150-450); RED BLOOD CELL COUNT(AUTO) 3.48 MIL/uL (4.5-6.0); RED CELL DISTRIBUTION WIDTH 16.9 % (11.5-15.0); WHITE BLOOD COUNT (AUTO) 12.2 K/uL (4.3-11.0)
[2025-02-04 04:32] LABS: CALCIUM, SERUM 7.8 mg/dL (8.5-10.1); CREATININE 1.4 mg/dL (0.6-1.3); PHOSPHORUS 3.1 mg/dL (2.5-4.9); SODIUM SERUM 138.0 mmol/L (136-145); UREA NITROGEN, BLOOD 28.0 mg/dL (7-18)
[2025-02-04] MEDS: VANCOMYCIN 750 MG in IV D5W 250 ML IV SCH (07:51)
[2025-02-04] MEDS: Z GUARD REMEDY 4 OZ OINT TP PRN (08:22)
[2025-02-04] MEDS: NEOMY SULF/BACITRAC ZN/POLY 15 GM TUBE TP SCH (09:52)
[2025-02-04] MEDS: POTASSIUM CL. PREMIX PERIPHER. 50 ML IV SCH (09:52)
[2025-02-04 10:38] LABS: ASPARTATE AMINOTRANSFERASE 31.0 U/L (15-37); TOTAL PROTEIN, SERUM 7.3 g/dL (6.4-8.2)
[2025-02-04] MEDS: DIGOXIN 0.125 MG TABLET GT SCH (12:41)
[2025-02-04] MEDS: ACETAMINOPHEN 650 MG/20.3 ML UDC GT PRN (20:27)
[2025-02-05] VITALS (91 sets, daily range): BP systolic 87–145; BP diastolic 46–96; TEMP 98.1–99.4; O2SAT 92–100
[2025-02-05] MEDS: INSULIN REGULAR, HUMAN 100 UNIT/ML 3 ML VIAL SQ PRN (00:17)
[2025-02-05 04:15] LABS: PLATELET COUNT (AUTO) 190 K/uL (150-450); RED BLOOD CELL COUNT(AUTO) 3.38 MIL/uL (4.5-6.0); RED CELL DISTRIBUTION WIDTH 16.4 % (11.5-15.0); WHITE BLOOD COUNT (AUTO) 13.6 K/uL (4.3-11.0)
[2025-02-05 04:30] LABS: ASPARTATE AMINOTRANSFERASE 25.0 U/L (15-37); CALCIUM, SERUM 8.1 mg/dL (8.5-10.1); SODIUM SERUM 140.0 mmol/L (136-145); TOTAL PROTEIN, SERUM 7.2 g/dL (6.4-8.2); UREA NITROGEN, BLOOD 21.0 mg/dL (7-18)
[2025-02-05 04:38] LABS: CREATININE 1.2 mg/dL (0.6-1.3)
[2025-02-05 08:07] LABS: HBSAG SCREEN Negative (Negative); HEPATITIS A AB, IgM Negative (Negative); HEPATITIS B CORE AB, IgM Negative (Negative)
[2025-02-05] MEDS: HYDROCORTISONE SOD SUCCINATE 100 MG/2 ML VIAL IV SCH (08:46)
[2025-02-05] MEDS: POTASSIUM CL. PREMIX PERIPHER. 50 ML IV SCH (09:34)
[2025-02-05] MEDS ORDERED: JEVITY 1.2 CAL 1,000 ML BOTTLE GT PRN (14:30)
[2025-02-05] MEDS ORDERED: VANCOMYCIN HCL 1.25 GM in IV D5W 250 ML IV SCH (20:00)
[2025-02-06] VITALS (53 sets, daily range): BP systolic 84–133; BP diastolic 53–93; TEMP 98.6–99.9; O2SAT 93–99
[2025-02-06 04:20] LABS: PLATELET COUNT (AUTO) 195 K/uL (150-450); RED BLOOD CELL COUNT(AUTO) 3.50 MIL/uL (4.5-6.0); RED CELL DISTRIBUTION WIDTH 16.5 % (11.5-15.0); WHITE BLOOD COUNT (AUTO) 15.1 K/uL (4.3-11.0)
[2025-02-06 05:36] LABS: CALCIUM, SERUM 8.1 mg/dL (8.5-10.1); CREATININE 1.6 mg/dL (0.6-1.3); SODIUM SERUM 139.0 mmol/L (136-145); UREA NITROGEN, BLOOD 25.0 mg/dL (7-18)
[2025-02-06] MEDS ORDERED: NOREPINEPHRINE 8 MG in IV D5W 242 ML IV PRN (08:30)
[2025-02-06 10:32] LABS: ASPARTATE AMINOTRANSFERASE 36.0 U/L (15-37); TOTAL PROTEIN, SERUM 7.4 g/dL (6.4-8.2)
[2025-02-06 12:39] LABS: APPEARANCE,URINE CLEAR (CLEAR); BLOOD, URINE 2+ Ery/uL (NEGATIVE); LEUKOCYTE ESTERASE ,URINE TRACE (NEGATIVE); NITRITE, URINE POSITIVE (NEGATIVE); UGLUCOSE TRACE mg/dL (NEGATIVE)
[2025-02-06 12:41] LABS: CREATININE, URINE 148.4 MG/DL (30.0-125.0); URINE SODIUM, RANDOM 5.0 mmol/l (40-220); URINE TOTAL PROTEIN 267.1 mg/dL (0-11.9)
[2025-02-06 12:53] LABS: ADD URINE CULTURE YES; SQUAMOUS EPITHELIAL CELL,UR 0-2 /HPF (None Seen)
[2025-02-06 13:16] LABS: EOSINOPHIL,URINE None Seen
[2025-02-07] VITALS (24 sets, daily range): BP systolic 93–148; BP diastolic 56–97; TEMP 97.9–102.5; O2SAT 91–100
[2025-02-07] MEDS: POLYVINYL ALCOHOL 15 ML BOTTLE EACHEYE PRN (04:13)
[2025-02-07 04:17] LABS: PLATELET COUNT (AUTO) 182 K/uL (150-450); RED BLOOD CELL COUNT(AUTO) 3.37 MIL/uL (4.5-6.0); RED CELL DISTRIBUTION WIDTH 16.6 % (11.5-15.0); WHITE BLOOD COUNT (AUTO) 9.8 K/uL (4.3-11.0)
[2025-02-07 04:44] LABS: CALCIUM, SERUM 8.2 mg/dL (8.5-10.1); CREATININE 1.7 mg/dL (0.6-1.3); SODIUM SERUM 142.0 mmol/L (136-145); UREA NITROGEN, BLOOD 35.0 mg/dL (7-18)
[2025-02-07 11:26] LABS: ASPARTATE AMINOTRANSFERASE 48.0 U/L (15-37); TOTAL PROTEIN, SERUM 7.1 g/dL (6.4-8.2)
[2025-02-07] MEDS: MEROPENEM 1 G in IV NS 0.9% 100 ML IV SCH (16:12)
[2025-02-08] VITALS (24 sets, daily range): BP systolic 102–147; BP diastolic 64–104; TEMP 97.7–99; O2SAT 94–99
[2025-02-08 04:37] LABS: PLATELET COUNT (AUTO) 279 K/uL (150-450); RED BLOOD CELL COUNT(AUTO) 3.70 MIL/uL (4.5-6.0); RED CELL DISTRIBUTION WIDTH 16.9 % (11.5-15.0); WHITE BLOOD COUNT (AUTO) 15.1 K/uL (4.3-11.0)
[2025-02-08 04:55] LABS: CALCIUM, SERUM 8.2 mg/dL (8.5-10.1); CREATININE 1.5 mg/dL (0.6-1.3); SODIUM SERUM 142.0 mmol/L (136-145); UREA NITROGEN, BLOOD 48.0 mg/dL (7-18)
[2025-02-08] MEDS: HYDROCORTISONE SOD SUCCINATE 100 MG/2 ML VIAL IV SCH (12:24)
[2025-02-08] MEDS: PANTOPRAZOLE 40 MG/PACK PACK GT SCH (21:28)
[2025-02-09] VITALS (65 sets, daily range): BP systolic 100–142; BP diastolic 59–110; TEMP 97.1–101.6; O2SAT 95–100
[2025-02-09] MEDS: ALBUTEROL FS 2.5 MG/3 ML VIAL.NEB NEB PRN (01:33)
[2025-02-09] MEDS: IPRATROPIUM NEB FS 0.5 MG/2.5 ML AMPUL.NEB NEB PRN (01:33)
[2025-02-09 04:55] LABS: PLATELET COUNT (AUTO) 221 K/uL (150-450); RED BLOOD CELL COUNT(AUTO) 3.46 MIL/uL (4.5-6.0); RED CELL DISTRIBUTION WIDTH 16.8 % (11.5-15.0); WHITE BLOOD COUNT (AUTO) 11.3 K/uL (4.3-11.0)
[2025-02-09 05:04] LABS: CALCIUM, SERUM 8.0 mg/dL (8.5-10.1); CREATININE 1.6 mg/dL (0.6-1.3); SODIUM SERUM 143.0 mmol/L (136-145); UREA NITROGEN, BLOOD 51.0 mg/dL (7-18)
[2025-02-09 05:55] LABS: LYMPHOCYTES % (MANUAL) 10 % (16-48); MONOCYTES % (MANUAL) 4 % (0-11.0); NEUTROPHILS % (MANUAL) 86 (42-76); PLATELET ESTIMATE ADEQUATE
[2025-02-09] MEDS ORDERED: DOSING PER PHARMACY-CEFEPIME IVPB XX PRN (12:00)
[2025-02-09] MEDS ORDERED: SODIUM BICARBONATE SYR 50 MEQ/50 ML DISP.SYRIN IV ONE (12:30)
[2025-02-09 13:11] LABS: ASPARTATE AMINOTRANSFERASE 26.0 U/L (15-37); TOTAL PROTEIN, SERUM 7.0 g/dL (6.4-8.2)
[2025-02-09] MEDS: CEFEPIME 2 GM in IV D5W 100 ML IV SCH (16:49)
[2025-02-10] VITALS (36 sets, daily range): BP systolic 103–141; BP diastolic 67–108; TEMP 97.5–98; O2SAT 97–100
[2025-02-10 05:05] LABS: PLATELET COUNT (AUTO) 234 K/uL (150-450); RED BLOOD CELL COUNT(AUTO) 3.49 MIL/uL (4.5-6.0); RED CELL DISTRIBUTION WIDTH 16.5 % (11.5-15.0); WHITE BLOOD COUNT (AUTO) 12.4 K/uL (4.3-11.0)
[2025-02-10 05:14] LABS: CALCIUM, SERUM 7.9 mg/dL (8.5-10.1); CREATININE 1.4 mg/dL (0.6-1.3); SODIUM SERUM 147.0 mmol/L (136-145); UREA NITROGEN, BLOOD 53.0 mg/dL (7-18)
[2025-02-10 10:48] LABS: ASPARTATE AMINOTRANSFERASE 36.0 U/L (15-37); TOTAL PROTEIN, SERUM 6.7 g/dL (6.4-8.2)
[2025-02-10] MEDS ORDERED: HYDROCORTISONE SOD SUCCINATE 100 MG/2 ML VIAL IV SCH (17:00)
== END 2025-02-10 14:27 | DRG 870 ==
LOC: ER 14:14 → ICU 16:36
PROVIDERS: ADMIT Nurse Practitioner Acute Care; ATTEND Nurse Practitioner Acute Care
PROC: 5A1955Z Respiratory Ventilation, Greater than 96 Consecutive Hours (ICD-10-PCS; principal; 2025-02-03)
PROC: 05HA33Z Insertion of Infusion Device into Left Brachial Vein, Percutaneous Approach (ICD-10-PCS; 2025-02-03)
DX: A41.9 Sepsis, unspecified organism (principal); G93.41 Metabolic encephalopathy; J15.9 Unspecified bacterial pneumonia; R65.21 Severe sepsis with septic shock; J96.20 Acute and chronic respiratory failure, unspecified whether with hypoxia or hypercapnia; I21.A1 Myocardial infarction type 2; N17.0 Acute kidney failure with tubular necrosis; R53.2 Functional quadriplegia; J15.1 Pneumonia due to Pseudomonas; Z16.13 Resistance to carbapenem; J44.0 Chronic obstructive pulmonary disease with (acute) lower respiratory infection; K92.2 Gastrointestinal hemorrhage, unspecified; E87.1 Hypo-osmolality and hyponatremia; E44.0 Moderate protein-calorie malnutrition; Z99.11 Dependence on respirator [ventilator] status; I48.20 Chronic atrial fibrillation, unspecified; I69.354 Hemiplegia and hemiparesis following cerebral infarction affecting left non-dominant side; D68.59 Other primary thrombophilia; K80.11 Calculus of gallbladder with chronic cholecystitis with obstruction; E27.40 Unspecified adrenocortical insufficiency; I50.30 Unspecified diastolic (congestive) heart failure; I11.0 Hypertensive heart disease with heart failure; B96.5 Pseudomonas (aeruginosa) (mallei) (pseudomallei) as the cause of diseases classified elsewhere; E86.1 Hypovolemia; K57.30 Diverticulosis of large intestine without perforation or abscess without bleeding; Z68.30 Body mass index [BMI] 30.0-30.9, adult; Z93.0 Tracheostomy status; Z93.1 Gastrostomy status; G35 Multiple sclerosis; I49.5 Sick sinus syndrome; G93.89 Other specified disorders of brain; K76.0 Fatty (change of) liver, not elsewhere classified; R13.10 Dysphagia, unspecified; D63.8 Anemia in other chronic diseases classified elsewhere; K21.9 Gastro-esophageal reflux disease without esophagitis; E11.9 Type 2 diabetes mellitus without complications; E86.0 Dehydration; E88.09 Other disorders of plasma-protein metabolism, not elsewhere classified; Z86.19 Personal history of other infectious and parasitic diseases; K76.89 Other specified diseases of liver
CPT/HCPCS: 31720; 36415; 70450-TC; 71045-TC; 76700-TC; 80048-TC; 80053-TC; 80076-TC; 80162-TC; 80202-TC; 81001; 82247-TC; 82248-TC; 82533; 82570-TC; 82962-TC; 83605-TC; 83735-TC; 84100-TC; 84300-TC; 84484-TC; 85025-TC; 85027-TC; 85730-TC; 86850; 86850-TC; 86860; 86870; 86880; 86900; 86901; 86905; 86906; 86970; 87040-TC; 87070-TC; 87081-TC; 87086-TC; 87186-TC; 87205-TC; 94002-TC; 94003-TC; 94799-TC; A4223; A6213; G0378; J0692; J1720; J1815; J2185; J2405; J2470; J2543; J3374; J3480; J7030; J7060

== ENCOUNTER 2025-02-10 14:29 | Inpatient (IN) | payer MEDICARE, OTHER ==
[~2025-02-10] VITALS: Ht 170.2 cm; Wt 78.5 kg
[~2025-02-10 14:29] MED LIST changes: -ALLA266C2 TP; -APIX2.5T GT; +BACL10TA GT; -NYST15PO4 TP; -OMEP20CA15 GT; +ONDA-97 GT; -THERA HONEY TP
[2025-02-10] MEDS ORDERED: IPRATROPIUM NEB FS 0.5 MG/2.5 ML AMPUL.NEB NEB PRN ×2 (17:49→17:51)
[2025-02-10] MEDS ORDERED: HYDROGEN PEROXIDE 480 ML BOTTLE TP PRN (18:00)
[2025-02-10] MEDS ORDERED: TUBERCULIN,PURIF.PROT.DERIV. 5 TU/0.1 ML VIAL ID SCH (18:02)
[2025-02-10] MEDS: FREE WATER VIA TUBE FEEDING GT SCH (18:18)
[2025-02-10] MEDS: JEVITY 1.2 CAL 1,000 ML BOTTLE GT PRN (18:18)
[2025-02-10] MEDS ORDERED: ACETAMINOPHEN 650 MG/20 ML UDC- SA PATIENTS-FEVER ONLY GT PRN (18:22)
[2025-02-10 18:23] VITALS: BP 110/53; TEMP 98; O2SAT 100
[2025-02-10] MEDS ORDERED: ALPRAZOLAM 0.5 MG TABLET GT SCH (18:23)
[2025-02-10] MEDS ORDERED: DOCUSATE SODIUM LIQ 100 MG/10 ML UDC GT PRN (18:34)
[2025-02-10] MEDS ORDERED: BLOOD SUGAR DIAGNOSTIC 1 EACH STRIP IN PRN (18:53)
[2025-02-10] MEDS ORDERED: DEXTROSE 50%-WATER 50 ML DISP.SYRIN IV PRN (19:00)
[2025-02-10] MEDS ORDERED: ONDANSETRON HCL/PF 4 MG/2 ML VIAL IVP PRN (19:30)
[2025-02-10] MEDS ORDERED: POLYVINYL ALCOHOL 15 ML BOTTLE EACHEYE PRN (19:30)
[2025-02-10] MEDS: IV NS 0.9% 1,000 ML IV SCH (19:30)
[2025-02-10] MEDS: IPRATROPIUM NEB FS 0.5 MG/2.5 ML AMPUL.NEB NEB SCH (19:54)
[2025-02-10] MEDS: ALBUTEROL HALF STRENGTH 1.25 MG/3 ML VIAL.NEB NEB SCH (19:54)
[2025-02-10] MEDS: HYDROGEN PEROXIDE 480 ML BOTTLE TP SCH (20:01)
[2025-02-10] MEDS: CHLORHEXIDINE GLUCONATE 15 ML UDC MM SCH (20:36)
[2025-02-10] MEDS: ASCORBIC ACID 500 MG TABLET GT SCH (20:36)
[2025-02-10] MEDS: ALPRAZOLAM 0.5 MG TABLET GT SCH (20:38)
[2025-02-10] MEDS: CEFEPIME 2 GM in IV D5W 100 ML IV SCH (20:52)
[2025-02-10 22:30] VITALS: BP 117/55; TEMP 98.2; O2SAT 100
[2025-02-10 22:44] VITALS: O2SAT 100
[2025-02-10 22:49] VITALS: O2SAT 100
[2025-02-11] VITALS (7 sets, daily range): BP systolic 111–128; BP diastolic 58–86; TEMP 97.3–98; O2SAT 98–100
[2025-02-11] MEDS: INSULIN REGULAR, HUMAN 100 UNIT/ML 10 ML VIAL SQ SCH
[2025-02-11] MEDS: OMEPRAZOLE 20 MG CAPSULE.DR GT SCH (04:53)
[2025-02-11 07:37] LABS: PLATELET COUNT (AUTO) 260 K/uL (150-450); RED BLOOD CELL COUNT(AUTO) 3.72 MIL/uL (4.5-6.0); RED CELL DISTRIBUTION WIDTH 17.0 % (11.5-15.0); WHITE BLOOD COUNT (AUTO) 12.2 K/uL (4.3-11.0)
[2025-02-11] MEDS: HYDROCORTISONE SOD SUCCINATE 100 MG/2 ML VIAL IV SCH (08:32)
[2025-02-11 10:01] LABS: ASPARTATE AMINOTRANSFERASE 47.0 U/L (15-37); CALCIUM, SERUM 7.7 mg/dL (8.5-10.1); CREATININE 1.2 mg/dL (0.6-1.3); SODIUM SERUM 146.0 mmol/L (136-145); TOTAL PROTEIN, SERUM 6.4 g/dL (6.4-8.2); UREA NITROGEN, BLOOD 51.0 mg/dL (7-18)
[2025-02-11] MEDS: DIGOXIN 0.125 MG TABLET GT SCH (12:06)
[2025-02-11 13:00] LABS: EOSINOPHILS % (MANUAL) 3 % (0-4); LYMPHOCYTES % (MANUAL) 14 % (16-48); MONOCYTES % (MANUAL) 9 % (0-11.0); NEUTROPHILS % (MANUAL) 74 (42-76); PLATELET ESTIMATE ADEQU
[2025-02-11] MEDS: IV NS 0.9% 1,000 ML IV PRN (20:05)
[2025-02-12 07:44] VITALS: BP 112/83; TEMP 97.4; O2SAT 100
[2025-02-12] MEDS ORDERED: THERAHONEY GEL 1.5 OZ TUBE TP PRN (09:30)
[2025-02-12 10:04] VITALS: O2SAT 99
[2025-02-12 10:47] VITALS: O2SAT 99
[2025-02-12] MEDS: THERAHONEY GEL 1.5 OZ TUBE TP SCH (11:04)
[2025-02-12] MEDS: HYDROCORTISONE SOD SUCCINATE 100 MG/2 ML VIAL IV SCH (12:10)
[2025-02-12] MEDS: BACLOFEN (10 MG) 10 MG TABLET GT SCH (13:13)
[2025-02-12 19:51] VITALS: BP 111/80; TEMP 97.3; O2SAT 100
[2025-02-12 23:26] VITALS: O2SAT 99
[2025-02-13] VITALS (7 sets, daily range): BP systolic 115–133; BP diastolic 59–85; TEMP 96.3–98.3; O2SAT 99–100
[2025-02-13] MEDS: ZINC OXIDE 30 GM TUBE TP SCH (09:03)
[2025-02-13] MEDS: Z GUARD REMEDY 4 OZ OINT TP SCH (09:03)
[2025-02-13 14:23] LABS: ASPARTATE AMINOTRANSFERASE 41.0 U/L (15-37); CALCIUM, SERUM 7.9 mg/dL (8.5-10.1); CREATININE 1.3 mg/dL (0.6-1.3); SODIUM SERUM 143.0 mmol/L (136-145); TOTAL PROTEIN, SERUM 6.9 g/dL (6.4-8.2); UREA NITROGEN, BLOOD 37.0 mg/dL (7-18)
[2025-02-13] MEDS: ACETAMINOPHEN 650 MG/20 ML UDC- SA PATIENTS-PAIN ONLY GT PRN (18:03)
[2025-02-13] MEDS: ALBUTEROL FS 2.5 MG/0.5 ML VIAL.NEB NEB PRN (18:56)
[2025-02-13] MEDS: IPRATROPIUM NEB FS 0.5 MG/2.5 ML AMPUL.NEB NEB PRN (18:56)
[2025-02-13] MEDS: NEOMY SULF/BACITRAC ZN/POLY 15 GM TUBE TP SCH (21:57)
[2025-02-13] MEDS: NYSTATIN TOP POWDER 15 GM BOTTLE TP SCH (21:57)
[2025-02-14] VITALS (7 sets, daily range): BP systolic 104–120; BP diastolic 72–76; TEMP 97.3–97.7; O2SAT 99–100
[2025-02-15 08:00] VITALS: BP 107/75; TEMP 98.3; O2SAT 99
[2025-02-15] MEDS ORDERED: FUROSEMIDE 40 MG TABLET GT SCH ×2 (09:00)
[2025-02-15] MEDS: FUROSEMIDE 10 MG/ML GT SCH (09:00)
[2025-02-15 10:57] VITALS: O2SAT 99
[2025-02-15 19:45] VITALS: BP 113/75; TEMP 98.6; O2SAT 100
[2025-02-15 20:08] VITALS: O2SAT 100
[2025-02-15] MEDS: LACTULOSE 10 G/15 ML UDC (PYXIS) GT PRN (21:00)
[2025-02-15 22:52] VITALS: O2SAT 98
[2025-02-16] MEDS: BISACODYL SUPP (10 MG) 10 MG/SUPP.RECT SUPP.RECT RC PRN (06:40)
[2025-02-16 08:00] VITALS: BP 112/79; TEMP 98; O2SAT 99
[2025-02-16 10:22] VITALS: O2SAT 99
[2025-02-16 10:23] VITALS: O2SAT 99
[2025-02-16 22:00] VITALS: BP 99/65; TEMP 97.9; O2SAT 98
[2025-02-16 23:32] VITALS: O2SAT 98
[2025-02-17 07:08] LABS: PLATELET COUNT (AUTO) 224 K/uL (150-450); RED BLOOD CELL COUNT(AUTO) 3.39 MIL/uL (4.5-6.0); RED CELL DISTRIBUTION WIDTH 19.1 % (11.5-15.0); WHITE BLOOD COUNT (AUTO) 9.1 K/uL (4.3-11.0)
[2025-02-17 07:29] LABS: CALCIUM, SERUM 8.2 mg/dL (8.5-10.1); CREATININE 1.0 mg/dL (0.6-1.3); SODIUM SERUM 142.0 mmol/L (136-145); UREA NITROGEN, BLOOD 28.0 mg/dL (7-18)
[2025-02-17 08:00] VITALS: BP 108/69; TEMP 98.2; O2SAT 100
[2025-02-17 10:10] VITALS: O2SAT 98; O2SAT 99
[2025-02-17 13:06] LABS: ASPARTATE AMINOTRANSFERASE 31.0 U/L (15-37); TOTAL PROTEIN, SERUM 6.5 g/dL (6.4-8.2)
[2025-02-17 19:42] VITALS: BP 128/67; TEMP 98.6; O2SAT 97
[2025-02-17 22:16] VITALS: O2SAT 98
[2025-02-18 08:23] VITALS: BP 108/58; TEMP 97.5; O2SAT 100
[2025-02-18 10:10] VITALS: O2SAT 98; O2SAT 99
[2025-02-18] MEDS ORDERED: DIATR MEGLU/DIATRIZOATE SODIUM 30 ML BOTTLE (GASTROGRAPHIN) ONE (11:38)
[2025-02-18 20:05] VITALS: BP 115/71; TEMP 98.2; O2SAT 99
[2025-02-18 22:21] VITALS: O2SAT 98
[2025-02-19 08:00] VITALS: BP 105/64; TEMP 97.3; O2SAT 99
[2025-02-19] MEDS ORDERED: TUBERCULIN,PURIF.PROT.DERIV. 5 TU/0.1 ML VIAL ID SCH (09:00)
[2025-02-19 10:05] VITALS: O2SAT 99
[2025-02-19 19:43] VITALS: O2SAT 100
[2025-02-19 20:10] VITALS: BP 110/62; TEMP 97.2; O2SAT 100
[2025-02-20 01:47] VITALS: O2SAT 100
[2025-02-20 10:34] VITALS: O2SAT 100
[2025-02-20 11:18] VITALS: BP 112/70; TEMP 97.5; O2SAT 100
[2025-02-20 19:50] VITALS: BP 104/73; TEMP 97.5; O2SAT 100
[2025-02-20 23:46] VITALS: O2SAT 100
[2025-02-20 23:47] VITALS: O2SAT 100
[2025-02-21 07:28] VITALS: BP 99/58; TEMP 97.3; O2SAT 99
[2025-02-21] MEDS: ZINC SULFATE 220 MG CAPSULE GT SCH (09:23)
[2025-02-21 10:54] VITALS: O2SAT 100
[2025-02-21 18:31] VITALS: BP 112/56; TEMP 97.7; O2SAT 100
[2025-02-21] MEDS: BLOOD SUGAR DIAGNOSTIC 1 EACH STRIP IN SCH (21:11)
[2025-02-21] MEDS: INSULIN REGULAR, HUMAN 100 UNIT/ML 10 ML VIAL SQ SCH (21:30)
[2025-02-21 23:52] VITALS: O2SAT 100
[2025-02-22 07:46] VITALS: BP 101/60; TEMP 97.9; O2SAT 99
[2025-02-22 10:07] VITALS: O2SAT 100
[2025-02-22 19:45] VITALS: BP 101/77; TEMP 98.4; O2SAT 100
[2025-02-22 23:33] VITALS: O2SAT 100
[2025-02-23 08:09] VITALS: BP 117/68; TEMP 97.9; O2SAT 100
[2025-02-23 10:04] VITALS: O2SAT 100
[2025-02-23 11:03] VITALS: O2SAT 100
[2025-02-23 20:03] VITALS: BP 116/80; TEMP 97.3; O2SAT 100
[2025-02-23 23:46] VITALS: O2SAT 100
[2025-02-24 07:54] VITALS: BP 119/75; TEMP 97.7; O2SAT 100
[2025-02-24 10:30] VITALS: O2SAT 100
[2025-02-24 19:24] VITALS: O2SAT 100
[2025-02-24 19:42] VITALS: BP 115/87; TEMP 97.8; O2SAT 99
[2025-02-24 22:22] LABS: CALCIUM, SERUM 8.5 mg/dL (8.5-10.1); CREATININE 0.9 mg/dL (0.6-1.3); SODIUM SERUM 138.0 mmol/L (136-145); UREA NITROGEN, BLOOD 23.0 mg/dL (7-18)
[2025-02-24 22:42] VITALS: O2SAT 100
[2025-02-25 07:23] VITALS: BP 115/58; TEMP 98.2; O2SAT 100
[2025-02-25 10:04] VITALS: O2SAT 100
[2025-02-25 11:03] VITALS: O2SAT 100
[2025-02-25 20:00] VITALS: BP 114/62; TEMP 97.5; O2SAT 99
[2025-02-25 23:00] VITALS: O2SAT 99
[2025-02-26 07:20] VITALS: BP 123/66; TEMP 97.6; O2SAT 99
[2025-02-26 10:19] VITALS: O2SAT 100
[2025-02-26 19:40] VITALS: BP 99/74; TEMP 97.7; O2SAT 100
[2025-02-26 23:29] VITALS: O2SAT 100
[2025-02-27 10:04] VITALS: O2SAT 98
[2025-02-27 20:00] VITALS: BP 98/62; TEMP 98.6; O2SAT 99
[2025-02-27 22:40] VITALS: O2SAT 100
[2025-02-28 08:49] VITALS: BP 98/57; TEMP 99.3; O2SAT 100
[2025-02-28 10:28] VITALS: O2SAT 97
[2025-02-28 19:36] VITALS: BP 100/59; TEMP 99.8; O2SAT 98
[2025-02-28 22:55] VITALS: O2SAT 98
[2025-03-01 07:19] VITALS: BP 114/65; TEMP 99.2; O2SAT 99
[2025-03-01 10:40] VITALS: O2SAT 98
[2025-03-01 19:46] VITALS: BP 101/62; TEMP 98.6; O2SAT 100
[2025-03-01 19:50] VITALS: O2SAT 98
[2025-03-01 22:48] VITALS: O2SAT 99
[2025-03-02 07:35] VITALS: BP 107/61; TEMP 99.3; O2SAT 100
[2025-03-02 10:12] VITALS: O2SAT 100
[2025-03-02 19:31] VITALS: O2SAT 96
[2025-03-02 19:33] VITALS: BP 100/65; TEMP 99.8; O2SAT 97
[2025-03-02 23:30] VITALS: O2SAT 100
[2025-03-03 07:19] VITALS: BP 131/69; TEMP 97.8; O2SAT 95
[2025-03-03 10:06] VITALS: O2SAT 99
[2025-03-03 19:35] VITALS: O2SAT 99
[2025-03-03 19:38] VITALS: BP 101/63; TEMP 99.5; O2SAT 99
[2025-03-03] MEDS: BACI/NEOM/POLY B OINT PKT 1 UDPKT PACKET TP SCH (20:39)
[2025-03-03 22:16] VITALS: O2SAT 99
[2025-03-04 11:05] VITALS: O2SAT 99
[2025-03-04 11:06] VITALS: O2SAT 98
[2025-03-04] MEDS ORDERED: NEOMY SULF/BACITRAC ZN/POLY 15 GM TUBE TP SCH (21:00)
[2025-07-08] MEDS ORDERED: TUBERCULIN,PURIF.PROT.DERIV. 5 TU/0.1 ML VIAL ID SCH (14:00)
== END 2025-03-04 10:00 | disposition short-term general hospital (02) | DRG 207 ==
LOC: SA 14:29 → UNDOLOA 03-04 09:25 → SA 03-04 16:33 → UNDOLOA 03-10 06:00 → UNDODISIN 03-10 08:00 → UNDOLOA 03-11 13:04
PROVIDERS: ADMIT Internal Medicine; ATTEND Internal Medicine
PROC: 5A1955Z Respiratory Ventilation, Greater than 96 Consecutive Hours (ICD-10-PCS; principal; 2025-02-10)
DX: J96.20 Acute and chronic respiratory failure, unspecified whether with hypoxia or hypercapnia (principal); I21.A1 Myocardial infarction type 2; A41.9 Sepsis, unspecified organism; N17.0 Acute kidney failure with tubular necrosis; J69.0 Pneumonitis due to inhalation of food and vomit; D68.59 Other primary thrombophilia; E44.0 Moderate protein-calorie malnutrition; G93.40 Encephalopathy, unspecified; I48.20 Chronic atrial fibrillation, unspecified; I50.32 Chronic diastolic (congestive) heart failure; R40.3 Persistent vegetative state; J44.0 Chronic obstructive pulmonary disease with (acute) lower respiratory infection; Z99.11 Dependence on respirator [ventilator] status; E86.0 Dehydration; D63.8 Anemia in other chronic diseases classified elsewhere; E11.9 Type 2 diabetes mellitus without complications; Z68.27 Body mass index [BMI] 27.0-27.9, adult; E88.09 Other disorders of plasma-protein metabolism, not elsewhere classified; I49.5 Sick sinus syndrome; Z87.01 Personal history of pneumonia (recurrent); E86.1 Hypovolemia; R13.10 Dysphagia, unspecified; K21.9 Gastro-esophageal reflux disease without esophagitis; K80.20 Calculus of gallbladder without cholecystitis without obstruction; Z86.19 Personal history of other infectious and parasitic diseases; I69.398 Other sequelae of cerebral infarction; Z93.0 Tracheostomy status; Z93.1 Gastrostomy status
CPT/HCPCS: 31720; 36415; 71045-TC; 74018; 80048-TC; 80053-TC; 80076-TC; 82962-TC; 83880; 85025-TC; 85027-TC; 86580-TC; 87070-TC; 87186-TC; 87205-TC; 94003-TC; 94760-TC; 94762-TC; 94799-TC; 97110-TC; 97530-TC; 99082-TC; A4223; A4623; A7526; J0692; J1720; J1815; J7030; J7060; Q9963

== ENCOUNTER 2025-03-04 09:34 | Inpatient (IN) | payer MEDICARE, OTHER ==
[~2025-03-04] VITALS: Ht 167.6 cm; Wt 97.5 kg
[2025-03-04] VITALS (36 sets, daily range): BP systolic 83–156; BP diastolic 53–123; TEMP 98.7–98.8; O2SAT 95–100
[2025-03-04] MEDS: AZITHROMYCIN 500 MG in IV D5W 250 ML IV ONE (10:00)
[2025-03-04] MEDS: IV NS 0.9% 1,000 ML BAG IV ONE (10:00)
[2025-03-04 10:10] LABS: PLATELET COUNT (AUTO) 225 K/uL (150-450); RED BLOOD CELL COUNT(AUTO) 3.36 MIL/uL (4.5-6.0); RED CELL DISTRIBUTION WIDTH 17.4 % (11.5-15.0); WHITE BLOOD COUNT (AUTO) 11.0 K/uL (4.3-11.0)
[2025-03-04 10:23] LABS: INR 1.21 (0.91-1.10)
[2025-03-04] MEDS: PIPERACILLIN /TAZOBACTAM 3.375 G in IV D5W 50 ML IV ONE (10:30)
[2025-03-04 10:33] LABS: CALCIUM, SERUM 8.2 mg/dL (8.5-10.1); CREATININE 1.2 mg/dL (0.6-1.3); SODIUM SERUM 131 mmol/L (136-145); UREA NITROGEN, BLOOD 28 mg/dL (7-18)
[2025-03-04 10:40] LABS: ASPARTATE AMINOTRANSFERASE 27 U/L (15-37); LACTIC ACID 5.5 mmol/L (0.4-2.0); TOTAL PROTEIN, SERUM 7.8 g/dL (6.4-8.2)
[2025-03-04] MEDS: ASPIRIN 300 MG/SUPP.RECT RC ONE (11:30)
[2025-03-04] MEDS: VANCOMYCIN 1 GM in IV D5W 250 ML IV ONE (11:38)
[2025-03-04] MEDS ORDERED: NOREPINEPHRINE 8MG/250ML RTU 250 ML IV ONE (12:12)
[2025-03-04] MEDS: NOREPINEPHRINE 8 MG in IV NS 0.9% 250 ML IV ONE (12:15)
[2025-03-04] MEDS ORDERED: ASPIRIN 300 MG/SUPP.RECT RC ONE (12:28)
[2025-03-04] MEDS ORDERED: ONDANSETRON HCL/PF 4 MG/2 ML VIAL IVP PRN (13:30)
[2025-03-04] MEDS ORDERED: LACTULOSE 10 G/15 ML UDC (PYXIS) GT PRN (13:30)
[2025-03-04] MEDS ORDERED: ALBUTEROL FS 2.5 MG/3 ML VIAL.NEB IH PRN (13:30)
[2025-03-04] MEDS ORDERED: MAG HYDROX/AL HYDROX/SIMETH 30 ML UDC PO PRN (13:30)
[2025-03-04] MEDS ORDERED: IV NS 0.9% 1,000 ML IV PRN (13:30)
[2025-03-04] MEDS ORDERED: IPRATROPIUM NEB FS 0.5 MG/2.5 ML AMPUL.NEB IH PRN (13:30)
[2025-03-04] MEDS ORDERED: DOCUSATE SODIUM LIQ 100 MG/10 ML UDC GT PRN (13:30)
[2025-03-04] MEDS ORDERED: DOSING PER PHARMACY-VANCOMYCIN IV XX PRN (13:30)
[2025-03-04] MEDS ORDERED: MAGNESIUM HYDROXIDE 30 ML UDC PO PRN (13:30)
[2025-03-04] MEDS ORDERED: POLYVINYL ALCOHOL 15 ML BOTTLE EACHEYE PRN (14:00)
[2025-03-04] MEDS: NOREPINEPHRINE 8 MG in IV NS 0.9% 242 ML IV PRN (15:05)
[2025-03-04] MEDS ORDERED: CEFEPIME 1 GM in IV D5W 50 ML IV SCH (17:00)
[2025-03-04] MEDS: CEFEPIME 2 GM in IV D5W 100 ML IV SCH (18:47)
[2025-03-04] MEDS: JEVITY 1.2 CAL 1,000 ML BOTTLE GT SCH (19:24)
[2025-03-04] MEDS: IPRATROPIUM NEB FS 0.5 MG/2.5 ML AMPUL.NEB IH SCH (20:07)
[2025-03-04] MEDS: BACLOFEN (10 MG) 10 MG TABLET GT SCH (20:59)
[2025-03-04] MEDS: ASCORBIC ACID 500 MG TABLET GT SCH (20:59)
[2025-03-04] MEDS: HYDROCORTISONE SOD SUCCINATE 100 MG/2 ML VIAL IV SCH (20:59)
[2025-03-04] MEDS: CHLORHEXIDINE GLUCONATE 15 ML UDC MM SCH (21:00)
[2025-03-04] MEDS ORDERED: MEROPENEM 500 MG in IV NS 0.9% 50 ML IV SCH (21:00)
[2025-03-04] MEDS: VANCOMYCIN 750 MG in IV D5W 250 ML IV SCH (22:00)
[2025-03-05] VITALS (92 sets, daily range): BP systolic 84–147; BP diastolic 50–100; TEMP 97.9–98.8; O2SAT 90–100
[2025-03-05 04:22] LABS: PLATELET COUNT (AUTO) 254 K/uL (150-450); RED BLOOD CELL COUNT(AUTO) 3.34 MIL/uL (4.5-6.0); RED CELL DISTRIBUTION WIDTH 17.6 % (11.5-15.0); WHITE BLOOD COUNT (AUTO) 15.8 K/uL (4.3-11.0)
[2025-03-05 04:40] LABS: ASPARTATE AMINOTRANSFERASE 28.0 U/L (15-37); CALCIUM, SERUM 8.5 mg/dL (8.5-10.1); CREATININE 1.3 mg/dL (0.6-1.3); PHOSPHORUS 2.7 mg/dL (2.5-4.9); SODIUM SERUM 132.0 mmol/L (136-145); TOTAL PROTEIN, SERUM 8.2 g/dL (6.4-8.2); UREA NITROGEN, BLOOD 25.0 mg/dL (7-18)
[2025-03-05] MEDS: CLOTRIMAZOLE/BETAMETASONE DIPROPIONATE 15 GM TUBE TP SCH (09:09)
[2025-03-05] MEDS: PANTOPRAZOLE 40 MG VIAL IV SCH (09:12)
[2025-03-05] MEDS: DIGOXIN 0.125 MG TABLET GT SCH (13:53)
[2025-03-05] MEDS: METRONIDAZOLE 500MG/ NS 100ML 500 MG in PREMIX 1 EA IV SCH (15:56)
[2025-03-05 16:54] LABS: APPEARANCE,URINE CLEAR (CLEAR); BLOOD, URINE 2+ Ery/uL (NEGATIVE); LEUKOCYTE ESTERASE ,URINE NEGATIVE (NEGATIVE); NITRITE, URINE NEGATIVE (NEGATIVE); UGLUCOSE NEGATIVE (NEGATIVE)
[2025-03-05 17:06] LABS: ADD URINE CULTURE NO; SQUAMOUS EPITHELIAL CELL,UR 0-2 /HPF (None Seen)
[2025-03-06] VITALS (79 sets, daily range): BP systolic 86–121; BP diastolic 48–79; TEMP 97.5–98.7; O2SAT 97–100
[2025-03-06 04:18] LABS: PLATELET COUNT (AUTO) 185 K/uL (150-450); RED BLOOD CELL COUNT(AUTO) 2.92 MIL/uL (4.5-6.0); RED CELL DISTRIBUTION WIDTH 17.4 % (11.5-15.0); WHITE BLOOD COUNT (AUTO) 9.4 K/uL (4.3-11.0)
[2025-03-06 04:23] LABS: CALCIUM, SERUM 8.5 mg/dL (8.5-10.1); CREATININE 1.2 mg/dL (0.6-1.3); SODIUM SERUM 140.0 mmol/L (136-145); UREA NITROGEN, BLOOD 26.0 mg/dL (7-18)
[2025-03-06 04:26] LABS: ASPARTATE AMINOTRANSFERASE 19.0 U/L (15-37); TOTAL PROTEIN, SERUM 7.4 g/dL (6.4-8.2)
[2025-03-06] MEDS: CEFEPIME 2 GM in IV D5W 100 ML IV SCH (13:12)
[2025-03-06] MEDS: VANCOMYCIN HCL 1.25 GM in IV D5W 250 ML IV SCH (14:04)
[2025-03-07] VITALS (28 sets, daily range): BP systolic 98–126; BP diastolic 63–88; TEMP 97.2–98.6; O2SAT 97–100
[2025-03-07 04:07] LABS: PLATELET COUNT (AUTO) 203 K/uL (150-450); RED BLOOD CELL COUNT(AUTO) 3.21 MIL/uL (4.5-6.0); RED CELL DISTRIBUTION WIDTH 16.9 % (11.5-15.0); WHITE BLOOD COUNT (AUTO) 9.9 K/uL (4.3-11.0)
[2025-03-07 04:16] LABS: CALCIUM, SERUM 8.0 mg/dL (8.5-10.1); CREATININE 1.1 mg/dL (0.6-1.3); SODIUM SERUM 139.0 mmol/L (136-145); UREA NITROGEN, BLOOD 31.0 mg/dL (7-18)
[2025-03-07 04:22] LABS: ASPARTATE AMINOTRANSFERASE 14.0 U/L (15-37); TOTAL PROTEIN, SERUM 7.7 g/dL (6.4-8.2)
[2025-03-07] MEDS: FREE WATER VIA TUBE FEEDING GT SCH ×2 (09:08→13:54)
[2025-03-07] MEDS: MEROPENEM 1 G in IV NS 0.9% 100 ML IV SCH (13:54)
[2025-03-08] VITALS: BP 104/76; TEMP 97.7; O2SAT 100
[2025-03-08 04:00] VITALS: BP 99/80; TEMP 97.1; O2SAT 100
[2025-03-08 06:13] LABS: PLATELET COUNT (AUTO) 216 K/uL (150-450); RED BLOOD CELL COUNT(AUTO) 3.33 MIL/uL (4.5-6.0); RED CELL DISTRIBUTION WIDTH 17.1 % (11.5-15.0); WHITE BLOOD COUNT (AUTO) 9.9 K/uL (4.3-11.0)
[2025-03-08 06:38] LABS: CALCIUM, SERUM 8.3 mg/dL (8.5-10.1); CREATININE 1.3 mg/dL (0.6-1.3); SODIUM SERUM 138.0 mmol/L (136-145); UREA NITROGEN, BLOOD 36.0 mg/dL (7-18)
[2025-03-08 06:50] LABS: ASPARTATE AMINOTRANSFERASE 15.0 U/L (15-37); TOTAL PROTEIN, SERUM 7.2 g/dL (6.4-8.2)
[2025-03-08 08:00] VITALS: BP 116/75; TEMP 97.5; O2SAT 100
[2025-03-08 12:00] VITALS: BP 118/72; TEMP 97.7; O2SAT 100
[2025-03-08 12:26] LABS: BASOPHILS % (MANUAL) 0 % (0.0-2.0); EOSINOPHILS % (MANUAL) 0 % (0-4); LYMPHOCYTES % (MANUAL) 9 % (16-48); MONOCYTES % (MANUAL) 3 % (0-11.0); NEUTROPHILS % (MANUAL) 88 (42-76)
[2025-03-08 12:27] LABS: PLATELET ESTIMATE ADEQUATE
[2025-03-08 16:00] VITALS: BP 108/72; TEMP 98.1; O2SAT 100
[2025-03-08 20:00] VITALS: BP 115/73; TEMP 97.7; O2SAT 100
[2025-03-08] MEDS: CEFTAZIDIME 2 G in IV D5W 100 ML IV SCH (20:01)
[2025-03-09] VITALS: BP 103/71; TEMP 97.4; O2SAT 97
[2025-03-09 04:00] VITALS: BP 110/76; TEMP 97.1; O2SAT 100
[2025-03-09 06:19] LABS: PLATELET COUNT (AUTO) 260 K/uL (150-450); RED BLOOD CELL COUNT(AUTO) 3.75 MIL/uL (4.5-6.0); RED CELL DISTRIBUTION WIDTH 16.8 % (11.5-15.0); WHITE BLOOD COUNT (AUTO) 13.5 K/uL (4.3-11.0)
[2025-03-09 06:27] LABS: CALCIUM, SERUM 8.1 mg/dL (8.5-10.1); CREATININE 1.2 mg/dL (0.6-1.3); SODIUM SERUM 139.0 mmol/L (136-145); UREA NITROGEN, BLOOD 43.0 mg/dL (7-18)
[2025-03-09 06:45] LABS: ASPARTATE AMINOTRANSFERASE 15.0 U/L (15-37); TOTAL PROTEIN, SERUM 7.3 g/dL (6.4-8.2)
[2025-03-09 08:00] VITALS: BP 119/70; TEMP 97.3; O2SAT 100
[2025-03-09] MEDS: CARBOXYMETHYLCELLULOSE SODIUM 1 EA TUBE EACHEYE PRN (08:44)
[2025-03-09] MEDS: PANTOPRAZOLE 40 MG/PACK PACK GT SCH (08:44)
[2025-03-09 09:23] LABS: ABG BASE EXCESS -3.2 mmol/L (-2.0-3.0); ABG OXYGEN SATURATION 97.7 % (94.0-98.0); ABG PCO2 33.0 mmHg (35.0-48.0); ABG PH 7.414 (7.350-7.450); ABG PO2 103.0 mmHg (83.0-108.0); ABG TOTAL HEMOGLOBIN 12.2 G/dL (13.5-17.5); FRACTIONATED INSPIRED OXYGEN 30.0 %; PEEP,BG 5 cm H2O; SET RATE, BG 16.0; SITE, ABG RIGHT RADIAL; VT, ABG 500 mL
[2025-03-09 12:00] VITALS: BP 126/82; TEMP 97.3; O2SAT 99
[2025-03-09] MEDS: MEROPENEM 1 G in IV NS 0.9% 100 ML IV SCH (13:30)
[2025-03-09 16:00] VITALS: BP 117/70; TEMP 97.7; O2SAT 100
[2025-03-09 20:00] VITALS: BP 104/74; TEMP 98.2; O2SAT 100
[2025-03-10] VITALS: BP 111/78; TEMP 98.8; O2SAT 99
[2025-03-10 04:00] VITALS: BP 105/71; TEMP 98.6; O2SAT 100
[2025-03-10 07:19] LABS: PLATELET COUNT (AUTO) 196 K/uL (150-450); RED BLOOD CELL COUNT(AUTO) 4.41 MIL/uL (4.5-6.0); RED CELL DISTRIBUTION WIDTH 18.4 % (11.5-15.0); WHITE BLOOD COUNT (AUTO) 16.8 K/uL (4.3-11.0)
[2025-03-10 08:00] VITALS: BP 121/75; TEMP 98.4; O2SAT 100
[2025-03-10 12:00] VITALS: BP 125/73; TEMP 98; O2SAT 100
[2025-03-10 12:02] LABS: CALCIUM, SERUM 8.2 mg/dL (8.5-10.1); CREATININE 1.1 mg/dL (0.6-1.3); SODIUM SERUM 137.0 mmol/L (136-145); UREA NITROGEN, BLOOD 42.0 mg/dL (7-18)
[2025-03-10 12:16] LABS: ASPARTATE AMINOTRANSFERASE 21.0 U/L (15-37); TOTAL PROTEIN, SERUM 7.1 g/dL (6.4-8.2)
[2025-03-10 16:00] VITALS: BP 118/83; TEMP 98.1; O2SAT 100
[2025-03-10] MEDS: FUROSEMIDE 40 MG TABLET GT STA (18:38)
[2025-03-10 20:00] VITALS: BP 115/66; TEMP 97.5; O2SAT 100
[2025-03-11] VITALS: BP 119/80; TEMP 97.8; O2SAT 100
[2025-03-11 04:00] VITALS: BP 123/50; TEMP 97.7; O2SAT 98
[2025-03-11 08:00] VITALS: BP 148/76; TEMP 97.5; O2SAT 96
[2025-03-11 09:05] LABS: PLATELET COUNT (AUTO) 272 K/uL (150-450); RED BLOOD CELL COUNT(AUTO) 4.50 MIL/uL (4.5-6.0); RED CELL DISTRIBUTION WIDTH 19.0 % (11.5-15.0); WHITE BLOOD COUNT (AUTO) 22.8 K/uL (4.3-11.0)
[2025-03-11] MEDS: HYDROCORTISONE SOD SUCCINATE 100 MG/2 ML VIAL IV SCH (09:14)
[2025-03-11 09:33] LABS: CALCIUM, SERUM 8.3 mg/dL (8.5-10.1); CREATININE 1.2 mg/dL (0.6-1.3); SODIUM SERUM 141.0 mmol/L (136-145); UREA NITROGEN, BLOOD 45.0 mg/dL (7-18)
[2025-03-11 09:40] LABS: ASPARTATE AMINOTRANSFERASE 25.0 U/L (15-37); TOTAL PROTEIN, SERUM 7.6 g/dL (6.4-8.2)
[2025-03-11 12:00] VITALS: BP 113/80; TEMP 97.6; O2SAT 95
[2025-03-11 13:28] LABS: LYMPHOCYTES % (MANUAL) 13 % (16-48); MONOCYTES % (MANUAL) 3 % (0-11.0); MYELOCYTES % 4 % (0-0); NEUTROPHILS % (MANUAL) 80 (42-76)
[2025-03-11 13:29] LABS: PLATELET ESTIMATE ADEQUATE
[2025-03-11] MEDS: LEVOFLOXACIN 500 MG /D5W 100ML 500 MG in PREMIX 1 EA IV SCH (14:12)
[2025-03-11 16:00] VITALS: BP 113/74; TEMP 98.3; O2SAT 96
[2025-03-11] MEDS ORDERED: IV NS 0.9% 250 ML IV ONE (16:44)
[2025-03-11] MEDS ORDERED: IOHEXOL-300 100 ML VIAL IV ONE (16:44)
[2025-03-11] MEDS: TWOCAL HN 1,000 ML LIQUID GT PRN (19:07)
[2025-03-11] MEDS ORDERED: FREE WATER VIA TUBE FEEDING GT PRN (19:30)
[2025-03-11 20:00] VITALS: BP 108/70; TEMP 97.5; O2SAT 98
[2025-03-12] VITALS: BP 110/59; TEMP 97.5; O2SAT 99
[2025-03-12 04:00] VITALS: BP 115/77; TEMP 97.3; O2SAT 100
[2025-03-12 08:00] VITALS: BP 110/77; TEMP 97.3; O2SAT 100
[2025-03-12 10:19] LABS: PLATELET COUNT (AUTO) 278 K/uL (150-450); RED BLOOD CELL COUNT(AUTO) 4.44 MIL/uL (4.5-6.0); RED CELL DISTRIBUTION WIDTH 18.5 % (11.5-15.0); WHITE BLOOD COUNT (AUTO) 13.7 K/uL (4.3-11.0)
[2025-03-12 10:59] LABS: ASPARTATE AMINOTRANSFERASE 26.0 U/L (15-37); CALCIUM, SERUM 8.3 mg/dL (8.5-10.1); CREATININE 1.1 mg/dL (0.6-1.3); PHOSPHORUS 3.8 mg/dL (2.5-4.9); SODIUM SERUM 141.0 mmol/L (136-145); TOTAL PROTEIN, SERUM 7.2 g/dL (6.4-8.2); UREA NITROGEN, BLOOD 43.0 mg/dL (7-18)
[2025-03-12 12:00] VITALS: BP 114/87; TEMP 98.1; O2SAT 98
[2025-03-12] MEDS ORDERED: FREE WATER VIA TUBE FEEDING GT SCH (15:00)
[2025-03-12 16:00] VITALS: BP 120/82; TEMP 98.2; O2SAT 99
[2025-03-12] MEDS: FREE WATER VIA TUBE FEEDING GT SCH (17:20)
[2025-03-12 20:00] VITALS: BP 106/69; TEMP 98.2; O2SAT 100
[2025-03-13] VITALS: BP 117/78; TEMP 98.1; O2SAT 100
[2025-03-13 04:00] VITALS: BP 135/91; TEMP 97.4; O2SAT 98
[2025-03-13 06:22] LABS: PLATELET COUNT (AUTO) 248 K/uL (150-450); RED BLOOD CELL COUNT(AUTO) 4.21 MIL/uL (4.5-6.0); RED CELL DISTRIBUTION WIDTH 18.9 % (11.5-15.0); WHITE BLOOD COUNT (AUTO) 15.5 K/uL (4.3-11.0)
[2025-03-13 06:45] LABS: CALCIUM, SERUM 8.4 mg/dL (8.5-10.1); CREATININE 1.0 mg/dL (0.6-1.3); PHOSPHORUS 3.2 mg/dL (2.5-4.9); SODIUM SERUM 142.0 mmol/L (136-145); UREA NITROGEN, BLOOD 36.0 mg/dL (7-18)
[2025-03-13 08:00] VITALS: BP 105/52; TEMP 98.2; O2SAT 100
[2025-03-13] MEDS: HYDROCORTISONE SOD SUCCINATE 100 MG/2 ML VIAL IV SCH (09:13)
[2025-03-13 12:00] VITALS: BP 127/83; TEMP 97.5; O2SAT 100
[2025-03-13] MEDS ORDERED: IOHEXOL-300 100 ML VIAL IV ONE (14:14)
[2025-03-13] MEDS ORDERED: IV NS 0.9% 250 ML IV ONE (14:15)
[2025-03-13 16:00] VITALS: BP 145/85; TEMP 98.1; O2SAT 100
[2025-03-13 20:00] VITALS: BP 135/86; TEMP 97.4; O2SAT 99
[2025-03-13] MEDS ORDERED: ACETAMINOPHEN 650 MG/20 ML UDC- SA PATIENTS-PAIN ONLY GT PRN (23:30)
[2025-03-13] MEDS ORDERED: ACETAMINOPHEN 160 MG/5 ML GT PRN (23:45)
[2025-03-13] MEDS: ACETAMINOPHEN 650 MG/20.3 ML UDC GT PRN (23:56)
[2025-03-14] VITALS (14 sets, daily range): BP systolic 93–176; BP diastolic 60–129; TEMP 97.2–98.6; O2SAT 96–100
[2025-03-14] MEDS: LORAZEPAM INJ 2 MG/ML VIAL IM ONE (02:39)
[2025-03-14 06:44] LABS: PLATELET COUNT (AUTO) 205 K/uL (150-450); RED BLOOD CELL COUNT(AUTO) 4.06 MIL/uL (4.5-6.0); RED CELL DISTRIBUTION WIDTH 18.9 % (11.5-15.0); WHITE BLOOD COUNT (AUTO) 16.7 K/uL (4.3-11.0)
[2025-03-14 06:53] LABS: ASPARTATE AMINOTRANSFERASE 25.0 U/L (15-37); CALCIUM, SERUM 8.2 mg/dL (8.5-10.1); CREATININE 1.1 mg/dL (0.6-1.3); PHOSPHORUS 2.9 mg/dL (2.5-4.9); SODIUM SERUM 141.0 mmol/L (136-145); TOTAL PROTEIN, SERUM 6.7 g/dL (6.4-8.2); UREA NITROGEN, BLOOD 33.0 mg/dL (7-18)
[2025-03-14 10:02] LABS: ABG BASE EXCESS -1.1 mmol/L (-2.0-3.0); ABG OXYGEN SATURATION 95.0 % (94.0-98.0); ABG PCO2 36.2 mmHg (35.0-48.0); ABG PH 7.420 (7.350-7.450); ABG PO2 78.9 mmHg (83.0-108.0); ABG TOTAL HEMOGLOBIN 13.5 G/dL (13.5-17.5); FLOW, BLOOD GAS 40.00 L/min (0.00-30.00); FRACTIONATED INSPIRED OXYGEN 30.0 %; PEEP,BG 5 cm H2O; SET RATE, BG 16.0; VT, ABG 500 mL
[2025-03-14] MEDS: LORAZEPAM INJ 2 MG/ML VIAL IV ONE (10:10)
[2025-03-14] MEDS: ALPRAZOLAM 0.5 MG TABLET GT SCH (21:14)
[2025-03-15] VITALS (10 sets, daily range): BP systolic 91–204; BP diastolic 56–128; TEMP 97.1–98; O2SAT 99–100
[2025-03-15 07:37] LABS: PLATELET COUNT (AUTO) 176 K/uL (150-450); RED BLOOD CELL COUNT(AUTO) 3.58 MIL/uL (4.5-6.0); RED CELL DISTRIBUTION WIDTH 19.2 % (11.5-15.0); WHITE BLOOD COUNT (AUTO) 13.6 K/uL (4.3-11.0)
[2025-03-15] MEDS: LORAZEPAM INJ 2 MG/ML VIAL IV ONE (08:28)
[2025-03-15 08:37] LABS: ABG BASE EXCESS -8.0 mmol/L (-2.0-3.0); ABG OXYGEN SATURATION 91.5 % (94.0-98.0); ABG PCO2 44.2 mmHg (35.0-48.0); ABG PH 7.251 (7.350-7.450); ABG PO2 77.6 mmHg (83.0-108.0); ABG TOTAL HEMOGLOBIN 14.1 G/dL (13.5-17.5); PEEP,BG 5 cm H2O; SET RATE, BG 16.0; SITE, ABG RIGHT RADIAL; VT, ABG 500 mL
[2025-03-15 08:52] LABS: CALCIUM, SERUM 8.3 mg/dL (8.5-10.1); CREATININE 1.2 mg/dL (0.6-1.3); PHOSPHORUS 3.1 mg/dL (2.5-4.9); SODIUM SERUM 142.0 mmol/L (136-145); UREA NITROGEN, BLOOD 40.0 mg/dL (7-18)
[2025-03-15 11:12] LABS: ABG BASE EXCESS 2.6 mmol/L (-2.0-3.0); ABG PCO2 40.0 mmHg (35.0-48.0); ABG PH 7.444 (7.350-7.450); ABG PO2 74.2 mmHg (83.0-108.0); ABG TOTAL HEMOGLOBIN 13.7 G/dL (13.5-17.5); PEEP,BG 5 cm H2O; SET RATE, BG 16.0; SITE, ABG RIGHT RADIAL; VT, ABG 550 mL
[2025-03-15] MEDS: LORAZEPAM INJ 2 MG/ML VIAL IV PRN (12:44)
[2025-03-15 13:24] LABS: ASPARTATE AMINOTRANSFERASE 40.0 U/L (15-37); TOTAL PROTEIN, SERUM 6.3 g/dL (6.4-8.2)
[2025-03-15] MEDS ORDERED: DIATR MEGLU/DIATRIZOATE SODIUM 30 ML BOTTLE (GASTROGRAPHIN) ONE (19:21)
[2025-03-15] MEDS: CEFTAZIDIME 2 G in IV D5W 100 ML IV SCH (21:06)
[2025-03-16] VITALS: BP_SYST 141; BP_SYST 145; BP_DIAS 93; BP_DIAS 95; TEMP 96.4; O2SAT 100
[2025-03-16 04:00] VITALS: BP 113/66; TEMP 96.1; O2SAT 100
[2025-03-16 08:00] VITALS: BP 150/87; TEMP 98.2; O2SAT 96
[2025-03-16 10:21] LABS: PLATELET COUNT (AUTO) 251 K/uL (150-450); RED BLOOD CELL COUNT(AUTO) 4.09 MIL/uL (4.5-6.0); RED CELL DISTRIBUTION WIDTH 19.0 % (11.5-15.0); WHITE BLOOD COUNT (AUTO) 12.6 K/uL (4.3-11.0)
[2025-03-16] MEDS: METOCLOPRAMIDE HCL 10 MG TABLET PO SCH (10:31)
[2025-03-16 10:44] LABS: ASPARTATE AMINOTRANSFERASE 39.0 U/L (15-37); CALCIUM, SERUM 8.4 mg/dL (8.5-10.1); CREATININE 1.5 mg/dL (0.6-1.3); PHOSPHORUS 3.7 mg/dL (2.5-4.9); SODIUM SERUM 139.0 mmol/L (136-145); TOTAL PROTEIN, SERUM 7.6 g/dL (6.4-8.2); UREA NITROGEN, BLOOD 48.0 mg/dL (7-18)
[2025-03-16 12:00] VITALS: BP 118/85; TEMP 98.2; O2SAT 95
[2025-03-16 16:00] VITALS: BP 129/97; TEMP 97.3; O2SAT 100
[2025-03-16 20:00] VITALS: BP 108/64; TEMP 97.2; O2SAT 100
[2025-03-17] VITALS: BP 133/87; TEMP 97.5; O2SAT 99
[2025-03-17 04:00] VITALS: BP 119/82; TEMP 97.5; O2SAT 97
[2025-03-17 06:16] LABS: PLATELET COUNT (AUTO) 185 K/uL (150-450); RED BLOOD CELL COUNT(AUTO) 3.85 MIL/uL (4.5-6.0); RED CELL DISTRIBUTION WIDTH 18.8 % (11.5-15.0); WHITE BLOOD COUNT (AUTO) 11.9 K/uL (4.3-11.0)
[2025-03-17 06:37] LABS: PHOSPHORUS 2.9 mg/dL (2.5-4.9)
[2025-03-17 06:40] LABS: ASPARTATE AMINOTRANSFERASE 30.0 U/L (15-37); CALCIUM, SERUM 8.2 mg/dL (8.5-10.1); CREATININE 1.3 mg/dL (0.6-1.3); SODIUM SERUM 140.0 mmol/L (136-145); TOTAL PROTEIN, SERUM 6.9 g/dL (6.4-8.2); UREA NITROGEN, BLOOD 53.0 mg/dL (7-18)
[2025-03-17 08:00] VITALS: BP 129/97; TEMP 97.3; O2SAT 100
[2025-03-17 12:00] VITALS: BP 120/83; TEMP 98.6; O2SAT 100
[2025-03-17 16:00] VITALS: BP 104/60; TEMP 98.6; O2SAT 100
[2025-03-17 20:00] VITALS: BP 155/78; TEMP 97.5; O2SAT 100
[2025-03-18] VITALS: BP 134/94; TEMP 97.7; O2SAT 100
[2025-03-18 04:00] VITALS: BP 146/93; TEMP 97.5; O2SAT 100
[2025-03-18 05:42] LABS: PLATELET COUNT (AUTO) 199 K/uL (150-450); RED BLOOD CELL COUNT(AUTO) 4.20 MIL/uL (4.5-6.0); RED CELL DISTRIBUTION WIDTH 18.6 % (11.5-15.0); WHITE BLOOD COUNT (AUTO) 9.3 K/uL (4.3-11.0)
[2025-03-18 05:54] LABS: ASPARTATE AMINOTRANSFERASE 31.0 U/L (15-37); CALCIUM, SERUM 8.6 mg/dL (8.5-10.1); CREATININE 1.4 mg/dL (0.6-1.3); PHOSPHORUS 3.6 mg/dL (2.5-4.9); SODIUM SERUM 140.0 mmol/L (136-145); TOTAL PROTEIN, SERUM 7.3 g/dL (6.4-8.2); UREA NITROGEN, BLOOD 55.0 mg/dL (7-18)
[2025-03-18 08:00] VITALS: BP 118/91; TEMP 97.5; O2SAT 100
[2025-03-18] MEDS: CLOTRIMAZOLE/BETAMETASONE DIPROPIONATE 15 GM TUBE TP SCH (09:43)
[2025-03-18 12:00] VITALS: BP 98/69; TEMP 97.7; O2SAT 100
[2025-03-18 16:00] VITALS: BP 126/92; TEMP 97.5; O2SAT 99
[2025-03-18 20:00] VITALS: BP 145/79; TEMP 98.9; O2SAT 97
[2025-03-19] VITALS (7 sets, daily range): BP systolic 125–140; BP diastolic 79–99; TEMP 97.5–98.2; O2SAT 99–100
[2025-03-19 05:56] LABS: PLATELET COUNT (AUTO) 161 K/uL (150-450); RED BLOOD CELL COUNT(AUTO) 3.93 MIL/uL (4.5-6.0); RED CELL DISTRIBUTION WIDTH 18.5 % (11.5-15.0); WHITE BLOOD COUNT (AUTO) 8.0 K/uL (4.3-11.0)
[2025-03-19 06:11] LABS: CALCIUM, SERUM 8.2 mg/dL (8.5-10.1); CREATININE 1.4 mg/dL (0.6-1.3); PHOSPHORUS 3.1 mg/dL (2.5-4.9); SODIUM SERUM 138.0 mmol/L (136-145); UREA NITROGEN, BLOOD 54.0 mg/dL (7-18)
[2025-03-19 06:14] LABS: ASPARTATE AMINOTRANSFERASE 30.0 U/L (15-37); TOTAL PROTEIN, SERUM 6.8 g/dL (6.4-8.2)
[2025-03-19] MEDS ORDERED: CEFT2VIA6 IJ (08:36)
[2025-03-19] MEDS: APIXABAN 5 MG TABLET PO SCH (16:36)
[2025-03-19] MEDS: Z GUARD REMEDY 4 OZ OINT TP PRN (16:36)
[2025-03-20] VITALS: BP 120/70; TEMP 97.3; O2SAT 100
[2025-03-20 04:00] VITALS: BP 115/82; TEMP 97.5; O2SAT 100
[2025-03-20 05:54] LABS: PLATELET COUNT (AUTO) 158 K/uL (150-450); RED BLOOD CELL COUNT(AUTO) 3.98 MIL/uL (4.5-6.0); RED CELL DISTRIBUTION WIDTH 18.4 % (11.5-15.0); WHITE BLOOD COUNT (AUTO) 9.6 K/uL (4.3-11.0)
[2025-03-20 06:02] LABS: CALCIUM, SERUM 8.5 mg/dL (8.5-10.1); CREATININE 1.2 mg/dL (0.6-1.3); PHOSPHORUS 3.2 mg/dL (2.5-4.9); SODIUM SERUM 139.0 mmol/L (136-145); UREA NITROGEN, BLOOD 49.0 mg/dL (7-18)
[2025-03-20 06:04] LABS: ASPARTATE AMINOTRANSFERASE 28.0 U/L (15-37); TOTAL PROTEIN, SERUM 6.7 g/dL (6.4-8.2)
[2025-03-20 08:00] VITALS: BP 118/81; TEMP 98.3; O2SAT 100
[2025-03-20 12:00] VITALS: BP 120/76; TEMP 98.1; O2SAT 100
[2025-03-20] MEDS ORDERED: APIX5TAB PO (14:16)
[2025-03-20 16:00] VITALS: BP 120/76; TEMP 98.1; O2SAT 100
== END 2025-03-20 18:00 | DRG 870 ==
LOC: ER 09:39 → ICU 13:40 → TELE1 03-07 17:20
PROVIDERS: ADMIT Nurse Practitioner Acute Care; ATTEND Nurse Practitioner Acute Care
PROC: 5A1955Z Respiratory Ventilation, Greater than 96 Consecutive Hours (ICD-10-PCS; principal; 2025-03-04)
DX: A41.50 Gram-negative sepsis, unspecified (principal); I21.A1 Myocardial infarction type 2; R65.21 Severe sepsis with septic shock; K75.0 Abscess of liver; I50.32 Chronic diastolic (congestive) heart failure; J96.10 Chronic respiratory failure, unspecified whether with hypoxia or hypercapnia; Z99.11 Dependence on respirator [ventilator] status; G93.40 Encephalopathy, unspecified; I48.20 Chronic atrial fibrillation, unspecified; E44.0 Moderate protein-calorie malnutrition; D68.59 Other primary thrombophilia; E27.40 Unspecified adrenocortical insufficiency; E87.1 Hypo-osmolality and hyponatremia; I11.0 Hypertensive heart disease with heart failure; Z20.822 Contact with and (suspected) exposure to COVID-19; Z86.73 Personal history of transient ischemic attack (TIA), and cerebral infarction without residual deficits; E11.9 Type 2 diabetes mellitus without complications; Z93.0 Tracheostomy status; Z93.1 Gastrostomy status; R13.10 Dysphagia, unspecified; J44.9 Chronic obstructive pulmonary disease, unspecified; K21.9 Gastro-esophageal reflux disease without esophagitis; Z87.09 Personal history of other diseases of the respiratory system; E88.09 Other disorders of plasma-protein metabolism, not elsewhere classified; M89.8X9 Other specified disorders of bone, unspecified site; Z87.440 Personal history of urinary (tract) infections; Z74.01 Bed confinement status; B96.20 Unspecified Escherichia coli [E. coli] as the cause of diseases classified elsewhere; D63.8 Anemia in other chronic diseases classified elsewhere; Z79.51 Long term (current) use of inhaled steroids; Z79.899 Other long term (current) drug therapy; K80.20 Calculus of gallbladder without cholecystitis without obstruction; Z86.19 Personal history of other infectious and parasitic diseases; R79.89 Other specified abnormal findings of blood chemistry; I49.5 Sick sinus syndrome; Z87.19 Personal history of other diseases of the digestive system; K57.30 Diverticulosis of large intestine without perforation or abscess without bleeding; K76.89 Other specified diseases of liver; Z79.01 Long term (current) use of anticoagulants; E80.6 Other disorders of bilirubin metabolism
CPT/HCPCS: 31720; 36415; 36600; 71045-TC; 74018; 74178; 76700-TC; 76705-TC; 80048-TC; 80053-TC; 80076-TC; 80202-TC; 81001; 82533; 82803-TC; 83605-TC; 83735-TC; 84100-TC; 84484-TC; 85025-TC; 85027-TC; 85730-TC; 87040-TC; 87070-TC; 87081-TC; 87086-TC; 87186-TC; 87205-TC; 93970-TC; 94003-TC; 94760-TC; 94762-TC; 94799-TC; 99082-TC; A4216; A4223; A4623; A6213; A7526; G0378; J0692; J0713; J1720; J1956; J2060; J2185; J2470; J2543; J2919; J3373; J3374; J3490; J7030; J7050; J7060; J8597; Q9963; Q9967

== ENCOUNTER 2025-03-20 15:24 | Inpatient (IN) | payer MEDICARE, OTHER ==
[~2025-03-20] VITALS: Ht 170.2 cm; Wt 84.4 kg
[~2025-03-20 15:24] MED LIST changes: -ALBU2.5V38 IH; +ALBU2.5V38 NEB; +APIX5TAB PO; +CEFT2VIA6 IJ; +IPRA0.2S49 NEB
[2025-03-20 19:43] VITALS: BP 119/75; TEMP 97.5; O2SAT 100
[2025-03-20] MEDS ORDERED: ACETAMINOPHEN 650 MG/20 ML UDC- SA PATIENTS-FEVER ONLY GT PRN (20:30)
[2025-03-20] MEDS ORDERED: ALBUTEROL FS 2.5 MG/3 ML VIAL.NEB NEB PRN (20:30)
[2025-03-20] MEDS ORDERED: IPRATROPIUM NEB FS 0.5 MG/2.5 ML AMPUL.NEB NEB PRN (20:30)
[2025-03-20] MEDS ORDERED: ONDANSETRON 4 MG TAB.RAPDIS GT PRN (20:30)
[2025-03-20] MEDS: HYDROGEN PEROXIDE 480 ML BOTTLE TP SCH (20:44)
[2025-03-20] MEDS: CEFTAZIDIME 2 G in IV D5W 100 ML IV SCH (21:00)
[2025-03-20] MEDS: ALPRAZOLAM 0.5 MG TABLET GT SCH (21:30)
[2025-03-20] MEDS: ASCORBIC ACID 500 MG TABLET PO SCH (21:30)
[2025-03-20] MEDS: BACLOFEN (10 MG) 10 MG TABLET PO SCH (21:30)
[2025-03-20] MEDS: CHLORHEXIDINE GLUCONATE 15 ML UDC MM SCH (21:30)
[2025-03-20 22:13] VITALS: O2SAT 100
[2025-03-21] VITALS (10 sets, daily range): BP systolic 108–140; BP diastolic 54–88; TEMP 97.3–98.8; O2SAT 98–100
[2025-03-21] MEDS: FREE WATER VIA TUBE FEEDING GT SCH (00:25)
[2025-03-21] MEDS: ALBUTEROL FS 2.5 MG/3 ML VIAL.NEB NEB SCH (01:56)
[2025-03-21] MEDS: IPRATROPIUM NEB FS 0.5 MG/2.5 ML AMPUL.NEB NEB SCH (01:56)
[2025-03-21] MEDS: FUROSEMIDE ORAL SOLN 10 MG/ML ML GT SCH (09:59)
[2025-03-21] MEDS: APIXABAN 5 MG TABLET PO SCH (09:59)
[2025-03-21] MEDS: DIGOXIN 0.125 MG TABLET GT SCH (12:36)
[2025-03-21] MEDS: TWOCAL HN 1,000 ML LIQUID GT PRN (17:54)
[2025-03-21] MEDS: Z GUARD REMEDY 4 OZ OINT TP SCH ×2 (20:56)
[2025-03-22] VITALS (9 sets, daily range): BP systolic 97–136; BP diastolic 55–79; TEMP 97.5–98.2; O2SAT 98–100
[2025-03-22] MEDS: NEOMY SULF/BACITRAC ZN/POLY 15 GM TUBE TP SCH (09:28)
[2025-03-23] VITALS (8 sets, daily range): BP systolic 90–125; BP diastolic 57–67; TEMP 97.3–98.8; O2SAT 97–100
[2025-03-23] MEDS: CEFTAZIDIME 2 G in IV D5W 100 ML IV SCH (13:39)
[2025-03-24 10:12] VITALS: O2SAT 97
[2025-03-24 11:18] VITALS: O2SAT 98
[2025-03-24 13:00] VITALS: BP 118/83; TEMP 98.2; O2SAT 97
[2025-03-24 17:00] VITALS: BP 110/71; TEMP 97.8; O2SAT 99
[2025-03-24 20:00] VITALS: BP 107/76; TEMP 98; O2SAT 99
[2025-03-24 22:17] VITALS: O2SAT 98
[2025-03-25] VITALS (7 sets, daily range): BP systolic 98–138; BP diastolic 61–71; TEMP 98.1–99; O2SAT 96–100
[2025-03-25] MEDS: LACTULOSE 10 G/15 ML UDC (PYXIS) GT PRN (09:49)
[2025-03-26 07:35] VITALS: BP 100/63; TEMP 97.9; O2SAT 97
[2025-03-26 11:50] VITALS: O2SAT 98
[2025-03-26 20:31] VITALS: BP 99/63; TEMP 97.7; O2SAT 99
[2025-03-26 23:18] VITALS: O2SAT 99
[2025-03-27 08:47] VITALS: BP 107/63; TEMP 97.7; O2SAT 98
[2025-03-27 10:12] VITALS: O2SAT 99
[2025-03-27 10:13] VITALS: O2SAT 99
[2025-03-27 20:00] VITALS: BP 108/72; TEMP 97.5; O2SAT 99
[2025-03-27] MEDS: BACLOFEN (10 MG) 10 MG TABLET GT SCH (20:54)
[2025-03-27] MEDS: ASCORBIC ACID 500 MG TABLET GT SCH (20:54)
[2025-03-27 22:49] VITALS: O2SAT 100; O2SAT 99
[2025-03-28] MEDS: APIXABAN 5 MG TABLET GT SCH (09:00)
[2025-03-28 10:17] VITALS: O2SAT 99
[2025-03-28 10:18] VITALS: O2SAT 99
[2025-03-28 19:30] VITALS: O2SAT 99
[2025-03-28 20:01] VITALS: BP 99/63; TEMP 98.6; O2SAT 100
[2025-03-28 22:47] VITALS: O2SAT 99
[2025-03-29 08:00] VITALS: BP 105/74; TEMP 99.1; O2SAT 99
[2025-03-29 10:06] VITALS: O2SAT 100; O2SAT 99
[2025-03-29] MEDS: APIXABAN 2.5 MG TABLET PO SCH (16:40)
[2025-03-29 19:39] VITALS: O2SAT 96
[2025-03-29 20:00] VITALS: BP 100/74; TEMP 98.1; O2SAT 99
[2025-03-29 23:13] VITALS: O2SAT 100
[2025-03-30] VITALS (10 sets, daily range): BP systolic 71–97; BP diastolic 44–59; TEMP 98.7–100.4; O2SAT 97–100
[2025-03-30 16:44] LABS: PLATELET COUNT (AUTO) 127 K/uL (150-450); RED BLOOD CELL COUNT(AUTO) 3.65 MIL/uL (4.5-6.0); RED CELL DISTRIBUTION WIDTH 19.4 % (11.5-15.0); WHITE BLOOD COUNT (AUTO) 10.4 K/uL (4.3-11.0)
[2025-03-30 17:01] LABS: CALCIUM, SERUM 8.3 mg/dL (8.5-10.1); CREATININE 1.6 mg/dL (0.6-1.3); SODIUM SERUM 135.0 mmol/L (136-145); UREA NITROGEN, BLOOD 41.0 mg/dL (7-18)
[2025-03-30] MEDS ORDERED: ALLA266C2 TP (19:04)
[2025-03-30] MEDS ORDERED: NEOM1OIN15 TP (19:04)
[2025-03-30] MEDS ORDERED: ALBU2.5V38 NEB (19:04)
[2025-03-30] MEDS ORDERED: NUT.237L25 GT (19:04)
[2025-03-30] MEDS ORDERED: APIX2.5T GT (19:04)
[2025-04-04] MEDS ORDERED: HYDR100V6 IV (09:39)
[2025-04-04] MEDS ORDERED: MERO1VIA23 IV (09:39)
[2025-04-04 19:39] VITALS: BP 120/53; TEMP 97.5; O2SAT 100
[2025-04-04 19:49] VITALS: O2SAT 99
[2025-04-04] MEDS: JEVITY 1.5 CAL LIQUID 1,000 ML BOTTLE GT PRN (20:00)
[2025-04-04] MEDS: HYDROCORTISONE SOD SUCCINATE 100 MG/2 ML VIAL IV SCH (21:00)
[2025-04-04] MEDS: MEROPENEM 1 G in IV NS 0.9% 100 ML IV SCH (21:00)
[2025-04-04 23:33] VITALS: O2SAT 100
[2025-04-05 08:07] VITALS: BP 101/63; TEMP 97.9; O2SAT 100
[2025-04-05] MEDS ORDERED: HYDROCORTISONE SOD SUCCINATE 100 MG/2 ML VIAL IV SCH ×2 (09:30→17:00)
[2025-04-05 10:14] VITALS: O2SAT 99
[2025-04-05 10:16] VITALS: O2SAT 98
[2025-04-05] MEDS: MEROPENEM 1 G in IV NS 0.9% 100 ML IV SCH (12:56)
[2025-04-05] MEDS: HYDROCORTISONE SOD SUCCINATE 100 MG/2 ML VIAL IV SCH (16:27)
[2025-04-05 19:50] VITALS: BP 102/68; TEMP 97.5; O2SAT 100
[2025-04-05 23:30] VITALS: O2SAT 100
[2025-04-06] MEDS: HYDROCORTISONE SOD SUCCINATE 100 MG/2 ML VIAL IV SCH (04:41)
[2025-04-06 07:44] VITALS: BP 102/65; TEMP 98.3; O2SAT 100
[2025-04-06 10:24] VITALS: O2SAT 100
[2025-04-06 19:26] VITALS: BP 119/81; TEMP 97.2; O2SAT 100
[2025-04-06 22:00] VITALS: BP 119/81; TEMP 97.2; O2SAT 100
[2025-04-06 23:48] VITALS: O2SAT 100
[2025-04-07] MEDS ORDERED: HYDROCORTISONE SOD SUCCINATE 100 MG/2 ML VIAL ONE (03:20)
[2025-04-07 08:00] VITALS: BP 117/77; TEMP 98.2; O2SAT 100
[2025-04-07 10:06] VITALS: O2SAT 100
[2025-04-07 17:47] LABS: PLATELET COUNT (AUTO) 192 K/uL (150-450); RED BLOOD CELL COUNT(AUTO) 3.25 MIL/uL (4.5-6.0); RED CELL DISTRIBUTION WIDTH 19.2 % (11.5-15.0); WHITE BLOOD COUNT (AUTO) 8.4 K/uL (4.3-11.0)
[2025-04-07 18:02] LABS: ASPARTATE AMINOTRANSFERASE 35.0 U/L (15-37); CALCIUM, SERUM 8.2 mg/dL (8.5-10.1); CREATININE 1.2 mg/dL (0.6-1.3); SODIUM SERUM 142.0 mmol/L (136-145); TOTAL PROTEIN, SERUM 6.4 g/dL (6.4-8.2); UREA NITROGEN, BLOOD 49.0 mg/dL (7-18)
[2025-04-07] MEDS ORDERED: HYDROCORTISONE SOD SUCCINATE 100 MG/2 ML VIAL IV ONE (18:20)
[2025-04-07 18:56] LABS: LYMPHOCYTES % (MANUAL) 11 % (16-48); NEUTROPHILS % (MANUAL) 84 (42-76)
[2025-04-07 18:57] LABS: MONOCYTES % (MANUAL) 5 % (0-11.0); PLATELET ESTIMATE ADEQUATE
[2025-04-07 19:28] VITALS: BP 126/86; TEMP 97.3; O2SAT 100
[2025-04-07 23:25] VITALS: O2SAT 100
[2025-04-08 08:45] VITALS: BP 117/62; TEMP 98.2; O2SAT 100
[2025-04-08 10:28] VITALS: O2SAT 99
[2025-04-08 20:08] VITALS: BP 124/83; TEMP 97.9; O2SAT 100
[2025-04-08 22:00] VITALS: BP 124/83; TEMP 97.9; O2SAT 100
[2025-04-08 23:20] VITALS: O2SAT 100
[2025-04-09 08:00] VITALS: BP 129/80; TEMP 98.2; O2SAT 100
[2025-04-09 10:10] VITALS: O2SAT 100
[2025-04-09 20:00] VITALS: BP 107/73; TEMP 98.4; O2SAT 99
[2025-04-09 23:26] VITALS: O2SAT 100
[2025-04-10 06:10] VITALS: BP 131/72; TEMP 97.7; O2SAT 99
[2025-04-10 07:15] LABS: PLATELET COUNT (AUTO) 204 K/uL (150-450); RED BLOOD CELL COUNT(AUTO) 3.60 MIL/uL (4.5-6.0); RED CELL DISTRIBUTION WIDTH 20.8 % (11.5-15.0); WHITE BLOOD COUNT (AUTO) 10.9 K/uL (4.3-11.0)
[2025-04-10 07:23] LABS: CALCIUM, SERUM 9.1 mg/dL (8.5-10.1); CREATININE 1.2 mg/dL (0.6-1.3); SODIUM SERUM 143.0 mmol/L (136-145); UREA NITROGEN, BLOOD 51.0 mg/dL (7-18)
[2025-04-10 08:45] VITALS: BP 113/85; TEMP 98.4; O2SAT 98
[2025-04-10 10:27] VITALS: O2SAT 100
[2025-04-10 20:00] VITALS: BP 116/90; TEMP 97.9; O2SAT 100
[2025-04-10 22:47] VITALS: O2SAT 100
[2025-04-11 08:40] VITALS: BP 107/78; TEMP 98.1; O2SAT 100
[2025-04-11 10:36] VITALS: O2SAT 100
[2025-04-11 10:37] VITALS: O2SAT 100
[2025-04-11 19:31] VITALS: O2SAT 100
[2025-04-11 19:42] VITALS: BP 101/83; TEMP 98.2; O2SAT 100
[2025-04-11 23:10] VITALS: O2SAT 100
[2025-04-12] MEDS: JEVITY 1.5 CAL LIQUID 1,000 ML BOTTLE GT PRN (05:00)
[2025-04-12 07:43] VITALS: BP 124/91; TEMP 97.3; O2SAT 99
[2025-04-12] MEDS: APIXABAN 2.5 MG TABLET PO SCH (09:21)
[2025-04-12 10:21] VITALS: O2SAT 100
[2025-04-12 19:33] VITALS: O2SAT 100
[2025-04-12 19:48] VITALS: BP 105/82; TEMP 97.3; O2SAT 100
[2025-04-12 23:20] VITALS: O2SAT 100
[2025-04-13 07:59] VITALS: BP 132/78; TEMP 97.5; O2SAT 100
[2025-04-13 09:30] LABS: ASPARTATE AMINOTRANSFERASE 33.0 U/L (15-37); CALCIUM, SERUM 8.4 mg/dL (8.5-10.1); CREATININE 1.1 mg/dL (0.6-1.3); SODIUM SERUM 147.0 mmol/L (136-145); TOTAL PROTEIN, SERUM 6.9 g/dL (6.4-8.2); UREA NITROGEN, BLOOD 51.0 mg/dL (7-18)
[2025-04-13 10:13] VITALS: O2SAT 100
[2025-04-13 10:17] VITALS: O2SAT 100
[2025-04-13 19:20] VITALS: O2SAT 100
[2025-04-13 19:25] VITALS: BP 116/85; TEMP 97.9; O2SAT 100
[2025-04-13 22:50] VITALS: O2SAT 100
[2025-04-14 07:46] VITALS: BP 118/75; TEMP 97.3; O2SAT 100
[2025-04-14 10:31] VITALS: O2SAT 100
[2025-04-14 19:24] VITALS: O2SAT 100
[2025-04-14] MEDS: DOCUSATE SODIUM LIQ 100 MG/10 ML UDC GT PRN (19:31)
[2025-04-14 19:36] VITALS: BP 113/75; TEMP 97.5; O2SAT 100
[2025-04-14 22:31] VITALS: O2SAT 100
[2025-04-15 10:11] VITALS: O2SAT 100
[2025-04-15 19:43] VITALS: BP 131/85; TEMP 97.3; O2SAT 100
[2025-04-15 23:17] VITALS: O2SAT 100
[2025-04-16 07:37] VITALS: BP 115/79; TEMP 98.3; O2SAT 100
[2025-04-16 10:19] VITALS: O2SAT 100
[2025-04-16] MEDS: ARTIFICIAL TEARS 15 ML BOTTLE OP PRN (18:25)
[2025-04-16 20:00] VITALS: BP 109/57; TEMP 98; O2SAT 99
[2025-04-16 23:15] VITALS: O2SAT 98
[2025-04-17 07:17] VITALS: BP 93/64; TEMP 97.5; O2SAT 100
[2025-04-17 10:39] VITALS: O2SAT 100
[2025-04-17] MEDS: ACETAMINOPHEN 650 MG/20 ML UDC- SA PATIENTS-PAIN ONLY GT PRN (16:29)
[2025-04-17 19:51] VITALS: BP 93/53; TEMP 98.1; O2SAT 99
[2025-04-17] MEDS ORDERED: CEFTRIAXONE 1 G in IV D5W 50 ML IV SCH (21:00)
[2025-04-17 23:40] VITALS: O2SAT 99
[2025-04-18 07:28] VITALS: BP 91/60; TEMP 97.3; O2SAT 100
[2025-04-18 10:12] VITALS: O2SAT 100
[2025-04-18 10:13] VITALS: O2SAT 100
[2025-04-18 19:25] VITALS: O2SAT 96
[2025-04-18 19:45] VITALS: BP 115/89; TEMP 98; O2SAT 97
[2025-04-18 23:26] VITALS: O2SAT 98
[2025-04-19 07:50] VITALS: BP 114/61; TEMP 98.8; O2SAT 96
[2025-04-19 11:30] VITALS: O2SAT 100
[2025-04-19 19:00] VITALS: BP 96/60; TEMP 97.3; O2SAT 97
[2025-04-19 23:13] VITALS: O2SAT 98
[2025-04-20 07:36] VITALS: BP 131/75; TEMP 97.6; O2SAT 99
[2025-04-20 10:12] VITALS: O2SAT 100
[2025-04-20 13:17] VITALS: RESP 16; O2SAT 98
[2025-04-20 19:40] VITALS: BP 134/81; TEMP 97.5; O2SAT 97
[2025-04-20 23:01] VITALS: O2SAT 97
[2025-04-21 07:35] VITALS: BP 115/77; TEMP 98.1; O2SAT 100
[2025-04-21 10:17] VITALS: O2SAT 100; O2SAT 97
[2025-04-21 19:13] VITALS: O2SAT 97
[2025-04-21 20:00] VITALS: BP 100/63; TEMP 97.5; O2SAT 99
[2025-04-21 23:14] VITALS: O2SAT 98
[2025-04-22 07:34] VITALS: BP 110/66; TEMP 97.5; O2SAT 100
[2025-04-22 14:23] VITALS: O2SAT 100
[2025-04-22 20:00] VITALS: BP 130/80; TEMP 97.5; O2SAT 99
[2025-04-22 22:01] VITALS: O2SAT 99
[2025-04-23 07:27] VITALS: BP 132/72; TEMP 97.3; O2SAT 99
[2025-04-23 10:08] VITALS: O2SAT 97
[2025-04-23 14:11] VITALS: O2SAT 100
[2025-04-23 19:48] VITALS: BP 120/67; TEMP 98.1; O2SAT 99
[2025-04-23 23:16] VITALS: O2SAT 100
[2025-04-24 07:27] VITALS: BP 98/64; TEMP 97.5; O2SAT 100
[2025-04-24] MEDS: HYDROCORTISONE SOD SUCCINATE 100 MG/2 ML VIAL IV SCH (09:00)
[2025-04-24 10:16] VITALS: O2SAT 100; O2SAT 99
[2025-04-24 19:28] VITALS: BP 129/67; TEMP 97.5; O2SAT 100
[2025-04-24 23:32] VITALS: O2SAT 100
[2025-04-25 07:24] VITALS: BP 106/62; TEMP 97.9; O2SAT 100
[2025-04-25 11:15] VITALS: O2SAT 100
[2025-04-25] MEDS: FLU VACC 2025-26(6MOS UP) 0.5 ML SYRINGE IM ONE (12:33)
[2025-04-25 19:29] VITALS: O2SAT 99
[2025-04-25 19:43] VITALS: BP 126/78; TEMP 97.7; O2SAT 100
[2025-04-25] MEDS: Z GUARD REMEDY 4 OZ OINT TP SCH (21:08)
[2025-04-25 23:37] VITALS: O2SAT 100
[2025-04-26 07:50] VITALS: BP 100/67; TEMP 97.5; O2SAT 100
[2025-04-26 10:38] VITALS: O2SAT 99
[2025-04-26 19:23] VITALS: O2SAT 100
[2025-04-26 19:33] VITALS: BP 119/65; TEMP 97.7; O2SAT 100
[2025-04-26 23:04] VITALS: O2SAT 100
[2025-04-27 07:35] VITALS: BP 103/60; TEMP 97.6; O2SAT 100
[2025-04-27] MEDS: HYDROCORTISONE SOD SUCCINATE 100 MG/2 ML VIAL IV SCH (09:59)
[2025-04-27 10:03] VITALS: O2SAT 99
[2025-04-27 19:15] VITALS: O2SAT 100
[2025-04-27 19:52] VITALS: BP 122/63; TEMP 97.7; O2SAT 100
[2025-04-27 23:08] VITALS: O2SAT 100
[2025-04-28 08:00] VITALS: BP 105/64; TEMP 97.5; O2SAT 100
[2025-04-28 10:03] VITALS: O2SAT 99
[2025-04-28 19:18] VITALS: O2SAT 100
[2025-04-28 20:00] VITALS: BP 126/73; TEMP 98.1; O2SAT 99
[2025-04-28 22:50] VITALS: O2SAT 100
[2025-04-29] MEDS: PROSOURCE / PROSTAT (PYXIS) 30 ML UDC GT SCH (09:57)
[2025-04-29 10:52] VITALS: O2SAT 100
[2025-04-29 22:00] VITALS: BP 123/75; TEMP 98.9; O2SAT 98
[2025-04-29 22:02] VITALS: O2SAT 100
[2025-04-30 07:53] VITALS: BP 103/58; TEMP 98.1; O2SAT 98
[2025-04-30 11:08] VITALS: O2SAT 100
[2025-04-30 20:00] VITALS: BP 121/67; TEMP 98.4; O2SAT 99
[2025-04-30 23:37] VITALS: O2SAT 100
[2025-05-01 07:27] VITALS: BP 134/82; TEMP 97.5; O2SAT 100
[2025-05-01 10:42] VITALS: O2SAT 100
[2025-05-01 19:34] VITALS: BP 112/63; TEMP 99.3; O2SAT 100
[2025-05-01 22:54] VITALS: O2SAT 99
[2025-05-02 08:28] VITALS: BP 98/60; TEMP 98.1; O2SAT 100
[2025-05-02 10:23] VITALS: O2SAT 100
[2025-05-02 19:25] VITALS: O2SAT 100
[2025-05-02 19:30] VITALS: BP 103/62; TEMP 98.6; O2SAT 100
[2025-05-02 22:37] VITALS: O2SAT 100
[2025-05-03] MEDS: JEVITY 1.5 CAL LIQUID 1,000 ML BOTTLE GT PRN (05:08)
[2025-05-03 08:47] VITALS: BP 103/58; TEMP 97.7; O2SAT 100
[2025-05-03 10:45] VITALS: O2SAT 100
[2025-05-03 19:46] VITALS: BP 105/71; TEMP 97.7; O2SAT 100
[2025-05-03 23:03] VITALS: O2SAT 100
[2025-05-04 07:30] VITALS: BP 98/59; TEMP 97.7; O2SAT 100
[2025-05-04 10:11] VITALS: O2SAT 100
[2025-05-04 22:58] VITALS: BP 121/77; TEMP 97.3; O2SAT 100
[2025-05-04 23:30] VITALS: O2SAT 99
[2025-05-05 10:12] VITALS: O2SAT 100
[2025-05-05] MEDS: COVID-19 VACC,MRNA(MODERNA) 100 MCG/0.5 ML IM ONE (15:15)
[2025-05-05 19:23] VITALS: O2SAT 100
[2025-05-05 22:10] VITALS: BP 104/65; TEMP 97.5; O2SAT 100
[2025-05-05 23:33] VITALS: O2SAT 100
[2025-05-06 07:29] VITALS: BP 109/62; TEMP 97.8; O2SAT 98
[2025-05-06 10:52] VITALS: O2SAT 100; O2SAT 98
[2025-05-06] MEDS: BISACODYL SUPP (10 MG) 10 MG/SUPP.RECT SUPP.RECT RC PRN (15:50)
[2025-05-06 22:04] VITALS: O2SAT 100
[2025-05-07 07:38] VITALS: BP 133/76; TEMP 97.9; O2SAT 100
[2025-05-07 13:10] VITALS: O2SAT 100
[2025-05-07 19:52] VITALS: BP 95/71; TEMP 98.1; O2SAT 100
[2025-05-07 22:48] VITALS: O2SAT 100
[2025-05-08 08:38] VITALS: BP 101/85; TEMP 98; O2SAT 100
[2025-05-08 10:07] VITALS: O2SAT 100
[2025-05-08 19:46] VITALS: BP 103/52; TEMP 97.5; O2SAT 96
[2025-05-08 23:34] VITALS: O2SAT 100
[2025-05-09] MEDS ORDERED: BACI/NEOM/POLY B OINT PKT 1 UDPKT PACKET TP SCH (05:30)
[2025-05-09 07:50] VITALS: BP 96/61; TEMP 98.1; O2SAT 98
[2025-05-09] MEDS: BACI/NEOM/POLY B OINT PKT 1 UDPKT PACKET TP SCH (09:48)
[2025-05-09 17:54] VITALS: O2SAT 100
[2025-05-09 20:58] VITALS: BP 109/67; TEMP 97.9; O2SAT 96
[2025-05-09 23:56] VITALS: O2SAT 100
[2025-05-10] VITALS (7 sets, daily range): BP systolic 90–108; BP diastolic 51–65; TEMP 97.9; O2SAT 98–100
[2025-05-10] MEDS: ERYTHROMYCIN ETHYLSUCCINATE 200 MG/5 ML SUSPENSION PO SCH
[2025-05-11 10:18] VITALS: O2SAT 100
[2025-05-11 10:55] VITALS: BP 108/78; TEMP 97.7; O2SAT 99
[2025-05-11 11:19] VITALS: O2SAT 99
[2025-05-11 19:24] VITALS: O2SAT 100
[2025-05-11 23:05] VITALS: BP 98/58; TEMP 97.5
[2025-05-11 23:35] VITALS: O2SAT 100
[2025-05-12 08:17] VITALS: BP 118/72; TEMP 97.9; O2SAT 96
[2025-05-12 10:07] VITALS: O2SAT 100
[2025-05-12 19:14] VITALS: O2SAT 100
[2025-05-12] MEDS: Z GUARD REMEDY 4 OZ OINT TP SCH (20:28)
[2025-05-12 22:00] VITALS: BP 101/68; TEMP 97.7; O2SAT 100
[2025-05-12 23:02] VITALS: O2SAT 100
[2025-05-13 07:50] VITALS: BP 110/64; TEMP 97.5; O2SAT 99
[2025-05-13 10:59] VITALS: O2SAT 100
[2025-05-13 22:00] VITALS: BP 102/61; TEMP 97.5; O2SAT 100
[2025-05-13 22:08] VITALS: O2SAT 100
[2025-05-14 07:40] VITALS: BP 102/64; TEMP 97.7; O2SAT 100
[2025-05-14 10:03] VITALS: O2SAT 100
[2025-05-14 19:58] VITALS: BP 100/56; TEMP 98.8; O2SAT 100
[2025-05-14 23:59] VITALS: O2SAT 98
[2025-05-15 07:31] VITALS: BP 99/58; TEMP 97.4; O2SAT 97
[2025-05-15 10:12] VITALS: O2SAT 100; O2SAT 99
[2025-05-15 19:53] VITALS: BP 95/56; TEMP 97.7; O2SAT 100
[2025-05-15 22:54] VITALS: O2SAT 100
[2025-05-16 07:43] VITALS: BP 102/61; TEMP 98.1; O2SAT 100
[2025-05-16 10:19] VITALS: O2SAT 100
[2025-05-16 10:22] VITALS: O2SAT 99
[2025-05-16 19:26] VITALS: O2SAT 100
[2025-05-16 19:57] VITALS: BP 98/57; TEMP 97.2; O2SAT 100
[2025-05-16 23:21] VITALS: O2SAT 100
[2025-05-17 07:40] VITALS: BP 101/50; TEMP 98.8; O2SAT 100
[2025-05-17 10:10] VITALS: O2SAT 100
[2025-05-17 19:53] VITALS: BP 96/53; TEMP 97.9; O2SAT 99
[2025-05-17 23:10] VITALS: O2SAT 100
[2025-05-18 07:42] VITALS: BP 101/57; TEMP 98.2; O2SAT 100
[2025-05-18 10:02] VITALS: O2SAT 100
[2025-05-18 22:48] VITALS: O2SAT 100
[2025-05-19 08:30] LABS: ASPARTATE AMINOTRANSFERASE 18.0 U/L (15-37); CALCIUM, SERUM 6.9 mg/dL (8.5-10.1); CREATININE 1.1 mg/dL (0.6-1.3); SODIUM SERUM 141.0 mmol/L (136-145); TOTAL PROTEIN, SERUM 7.0 g/dL (6.4-8.2); UREA NITROGEN, BLOOD 34.0 mg/dL (7-18)
[2025-05-19 08:33] LABS: PLATELET COUNT (AUTO) 207 K/uL (150-450); RED CELL DISTRIBUTION WIDTH 24.6 % (11.5-15.0); WHITE BLOOD COUNT (AUTO) 13.3 K/uL (4.3-11.0)
[2025-05-19 08:34] LABS: RED BLOOD CELL COUNT(AUTO) 1.29 MIL/uL (4.5-6.0)
[2025-05-19 09:12] VITALS: BP 96/82; TEMP 100.4; O2SAT 100
[2025-05-19 10:08] VITALS: O2SAT 100
[2025-05-19] MEDS ORDERED: ERYT400T83 GT (11:13)
[2025-05-19] MEDS ORDERED: [UNRECOGNIZED DRUG - REMARK] GT (11:13)
[2025-05-19] MEDS ORDERED: AMIN30LI25 GT (11:13)
[2025-05-19] MEDS ORDERED: LACT-96 (11:13)
[2025-05-19 12:05] LABS: BASOPHILS % (MANUAL) 0 % (0.0-2.0); EOSINOPHILS % (MANUAL) 0 % (0-4); LYMPHOCYTES % (MANUAL) 10 % (16-48); MONOCYTES % (MANUAL) 7 % (0-11.0); NEUTROPHILS % (MANUAL) 83 (42-76); PLATELET ESTIMATE ADEQUATE
[2025-05-22 19:52] VITALS: BP 110/62; TEMP 98.5; O2SAT 99
[2025-05-22 23:13] VITALS: O2SAT 100
[2025-05-23 07:39] VITALS: BP 103/79; TEMP 97.7; O2SAT 100
[2025-05-23 10:21] VITALS: O2SAT 100
[2025-05-23] MEDS: APIXABAN 2.5 MG TABLET GT SCH (17:00)
[2025-05-23] MEDS: ERYTHROMYCIN ETHYLSUCCINATE 200 MG/5 ML SUSPENSION GT SCH (18:20)
[2025-05-23 19:00] VITALS: BP 111/82; TEMP 97.3; O2SAT 100
[2025-05-23 19:20] VITALS: O2SAT 100
[2025-05-23 23:41] VITALS: O2SAT 100
[2025-05-24 08:15] VITALS: BP 96/95; TEMP 97.7; O2SAT 100
[2025-05-24 10:05] VITALS: O2SAT 100
[2025-05-24 19:27] VITALS: O2SAT 100
[2025-05-24 20:49] VITALS: BP 107/74; TEMP 97.7; O2SAT 100
[2025-05-24 23:18] VITALS: O2SAT 100
[2025-05-25 10:12] VITALS: O2SAT 100
[2025-05-25 10:50] VITALS: BP 122/72; TEMP 97.2; O2SAT 100
[2025-05-25] MEDS ORDERED: BACI/NEOM/POLY B OINT PKT 1 UDPKT PACKET TP PRN (16:19)
[2025-05-25 19:17] VITALS: O2SAT 100
[2025-05-25 19:34] VITALS: BP 115/71; TEMP 97.5; O2SAT 100
[2025-05-25 23:30] VITALS: O2SAT 100
[2025-05-26] MEDS: HYDROGEN PEROXIDE 480 ML BOTTLE TP PRN (08:16)
[2025-05-26 10:15] VITALS: O2SAT 100
[2025-05-26 19:14] VITALS: O2SAT 99
[2025-05-26 19:35] VITALS: BP 122/84; TEMP 97.5; O2SAT 99
[2025-05-26 23:36] VITALS: O2SAT 100
[2025-05-27] MEDS: MORPHINE SULFATE INJ 4 MG/ML DISP.SYRIN IV PRN (03:23)
[2025-05-27 07:51] VITALS: BP 103/67; TEMP 98.1; O2SAT 100
[2025-05-27 10:09] VITALS: O2SAT 99
[2025-05-27 19:45] VITALS: BP 108/62; TEMP 97.5; O2SAT 100
[2025-05-27 22:13] VITALS: O2SAT 100
[2025-05-28 08:20] VITALS: BP 90/60; TEMP 97.5; O2SAT 100
[2025-05-28 17:00] VITALS: O2SAT 99
[2025-05-28 21:04] VITALS: BP 102/61; TEMP 98.1; O2SAT 100
[2025-05-28 23:15] VITALS: O2SAT 100
[2025-05-29 07:53] VITALS: BP 100/57; TEMP 98.9; O2SAT 100
[2025-05-29 10:02] VITALS: O2SAT 100
[2025-05-29] MEDS: TWOCAL HN 1,000 ML LIQUID GT PRN (17:28)
[2025-05-29 20:05] VITALS: BP 119/69; TEMP 97.9; O2SAT 100
[2025-05-29 23:45] VITALS: O2SAT 100
[2025-05-30 10:12] VITALS: O2SAT 100
[2025-05-30 10:13] VITALS: O2SAT 100
[2025-05-30 13:24] VITALS: BP 105/58; TEMP 97.7; O2SAT 98
[2025-05-30] MEDS ORDERED: Z GUARD REMEDY 4 OZ OINT TP PRN (15:00)
[2025-05-30 19:30] VITALS: O2SAT 98
[2025-05-30] MEDS: Z GUARD REMEDY 4 OZ OINT TP SCH (20:42)
[2025-05-30 21:22] VITALS: BP 92/58; TEMP 99.7; O2SAT 100
[2025-05-30 23:17] VITALS: O2SAT 98
[2025-05-31 07:36] VITALS: BP 113/59; TEMP 97.9; O2SAT 98
[2025-05-31 10:03] VITALS: O2SAT 99
[2025-05-31] MEDS: ONDANSETRON HCL/PF 4 MG/2 ML VIAL IVP PRN (18:35)
[2025-05-31 20:00] VITALS: BP 79/49; TEMP 99.8; O2SAT 97
[2025-05-31 22:05] VITALS: O2SAT 97
[2025-06-01 05:51] VITALS: BP 84/54; O2SAT 100
[2025-06-01 07:59] VITALS: BP 82/39; TEMP 99.3; O2SAT 100
[2025-06-01 11:15] VITALS: O2SAT 99
[2025-06-01 11:16] VITALS: O2SAT 99
[2025-07-08] MEDS ORDERED: TUBERCULIN,PURIF.PROT.DERIV. 5 TU/0.1 ML VIAL ID SCH ×2 (18:00)
== END 2025-06-01 17:48 | DRG 207 ==
LOC: SA 18:28
PROVIDERS: ADMIT Internal Medicine; ATTEND Internal Medicine
PROC: 5A1955Z Respiratory Ventilation, Greater than 96 Consecutive Hours (ICD-10-PCS; principal; 2025-03-20)
DX: J96.21 Acute and chronic respiratory failure with hypoxia (principal); I21.A1 Myocardial infarction type 2; A41.51 Sepsis due to Escherichia coli [E. coli]; R65.21 Severe sepsis with septic shock; J69.0 Pneumonitis due to inhalation of food and vomit; J15.69 Pneumonia due to other Gram-negative bacteria; I26.99 Other pulmonary embolism without acute cor pulmonale; N17.0 Acute kidney failure with tubular necrosis; G92.8 Other toxic encephalopathy; G93.1 Anoxic brain damage, not elsewhere classified; N39.0 Urinary tract infection, site not specified; J95.01 Hemorrhage from tracheostomy stoma; Z99.11 Dependence on respirator [ventilator] status; Z79.01 Long term (current) use of anticoagulants; B96.89 Other specified bacterial agents as the cause of diseases classified elsewhere; E44.0 Moderate protein-calorie malnutrition; I50.32 Chronic diastolic (congestive) heart failure; I13.0 Hypertensive heart and chronic kidney disease with heart failure and stage 1 through stage 4 chronic kidney disease, or unspecified chronic kidney disease; D63.8 Anemia in other chronic diseases classified elsewhere; N18.9 Chronic kidney disease, unspecified; E11.22 Type 2 diabetes mellitus with diabetic chronic kidney disease; J44.9 Chronic obstructive pulmonary disease, unspecified; K76.9 Liver disease, unspecified; E27.40 Unspecified adrenocortical insufficiency; E87.0 Hyperosmolality and hypernatremia; D68.59 Other primary thrombophilia; J95.851 Ventilator associated pneumonia; E87.1 Hypo-osmolality and hyponatremia; Z16.24 Resistance to multiple antibiotics; I48.20 Chronic atrial fibrillation, unspecified; R13.10 Dysphagia, unspecified; I49.5 Sick sinus syndrome; K80.20 Calculus of gallbladder without cholecystitis without obstruction; Z79.51 Long term (current) use of inhaled steroids; Z79.899 Other long term (current) drug therapy; E80.6 Other disorders of bilirubin metabolism; Z86.73 Personal history of transient ischemic attack (TIA), and cerebral infarction without residual deficits; Y84.8 Other medical procedures as the cause of abnormal reaction of the patient, or of later complication, without mention of misadventure at the time of the procedure; Y92.9 Unspecified place or not applicable; Z87.19 Personal history of other diseases of the digestive system; Z74.09 Other reduced mobility; E88.09 Other disorders of plasma-protein metabolism, not elsewhere classified; B30.9 Viral conjunctivitis, unspecified; K21.9 Gastro-esophageal reflux disease without esophagitis; K76.89 Other specified diseases of liver; Z79.4 Long term (current) use of insulin; Z87.440 Personal history of urinary (tract) infections; M89.8X9 Other specified disorders of bone, unspecified site
CPT/HCPCS: 31720; 36415; 80048-TC; 80053-TC; 82140-TC; 85025-TC; 85027-TC; 87081-TC; 94002-TC; 94003-TC; 94760-TC; 94762-TC; 94799-TC; 97110-TC; 97530-TC; 99082-TC; A4217; A4223; A4623; A7526; G0008; J0696; J0713; J1720; J2185; J2270; J2405; J7030; J7060

== ENCOUNTER 2025-03-30 17:47 | Inpatient (IN) | payer MEDICARE, OTHER ==
[~2025-03-30] VITALS: Ht 172.7 cm; Wt 78.9 kg
[2025-03-30 18:49] LABS: PLATELET COUNT (AUTO) 136 K/uL (150-450); RED BLOOD CELL COUNT(AUTO) 3.45 MIL/uL (4.5-6.0); RED CELL DISTRIBUTION WIDTH 19.0 % (11.5-15.0); WHITE BLOOD COUNT (AUTO) 13.7 K/uL (4.3-11.0)
[2025-03-30 18:57] LABS: CALCIUM, SERUM 8.3 mg/dL (8.5-10.1); CREATININE 1.7 mg/dL (0.6-1.3); SODIUM SERUM 135 mmol/L (136-145); UREA NITROGEN, BLOOD 40 mg/dL (7-18)
[2025-03-30] MEDS: CEFEPIME 1 GM in IV D5W 50 ML IV ONE (19:00)
[2025-03-30 19:03] LABS: ASPARTATE AMINOTRANSFERASE 35 U/L (15-37); TOTAL PROTEIN, SERUM 7.1 g/dL (6.4-8.2)
[2025-03-30] MEDS ORDERED: APIX2.5T GT (19:04)
[2025-03-30] MEDS ORDERED: ALLA266C2 TP (19:04)
[2025-03-30] MEDS ORDERED: NUT.237L25 GT (19:04)
[2025-03-30] MEDS ORDERED: ALBU2.5V38 NEB (19:04)
[2025-03-30] MEDS ORDERED: NEOM1OIN15 TP (19:04)
[2025-03-30 19:08] LABS: LACTIC ACID 2.7 mmol/L (0.4-2.0)
[2025-03-30] MEDS: IV NS 0.9% 1,000 ML BAG IV ONE (19:10)
[2025-03-30 19:14] LABS: INR 1.36 (0.91-1.10)
[2025-03-30] MEDS ORDERED: NOREPINEPHRINE 8MG/250ML RTU 250 ML IV ONE (19:29)
[2025-03-30] MEDS: NOREPINEPHRINE 8 MG in IV NS 0.9% 250 ML IV ONE (19:37)
[2025-03-30] MEDS: VANCOMYCIN 1 GM in IV D5W 250 ML IV ONE (19:45)
[2025-03-30] MEDS ORDERED: ACETAMINOPHEN 650 MG/SUPP.RECT RC PRN (22:30)
[2025-03-30] MEDS ORDERED: NOREPINEPHRINE 8 MG in IV NS 0.9% 242 ML IV PRN (22:30)
[2025-03-30] MEDS ORDERED: Z GUARD REMEDY 4 OZ OINT TP PRN (22:30)
[2025-03-30] MEDS ORDERED: ONDANSETRON HCL/PF 4 MG/2 ML VIAL IVP PRN (22:30)
[2025-03-30] MEDS ORDERED: DOSING PER PHARMACY-VANCOMYCIN IV XX PRN (22:30)
[2025-03-30] MEDS ORDERED: MEROPENEM 1 G in IV NS 0.9% 100 ML IV ONE (23:00)
[2025-03-30 23:13] VITALS: BP 137/77; O2SAT 98
[2025-03-30 23:15] VITALS: BP 144/78; O2SAT 98
[2025-03-30] MEDS: NOREPINEPHRINE 8 MG in IV NS 0.9% 242 ML IV PRN (23:15)
[2025-03-30 23:17] VITALS: BP 141/98; O2SAT 98
[2025-03-30 23:30] VITALS: BP 115/63; O2SAT 98
[2025-03-30] MEDS ORDERED: MEROPENEM 1 G VIAL IV ONE (23:35)
[2025-03-30 23:45] VITALS: BP 73/48; O2SAT 98
[2025-03-30] MEDS: MEROPENEM 1 G in IV NS 0.9% 100 ML IV ONE (23:57)
[2025-03-30] MEDS: IV D5/0.45 NACL 1,000 ML IV PRN (23:57)
[2025-03-31] VITALS (89 sets, daily range): BP systolic 79–134; BP diastolic 48–87; TEMP 97–99.1; O2SAT 95–100
[2025-03-31] MEDS ORDERED: IPRATROPIUM NEB FS 0.5 MG/2.5 ML AMPUL.NEB NEB PRN
[2025-03-31] MEDS ORDERED: ALBUTEROL FS 2.5 MG/3 ML VIAL.NEB NEB PRN
[2025-03-31 00:11] LABS: APPEARANCE,URINE SLIGHTLY CLOUDY (CLEAR); BLOOD, URINE 3+ Ery/uL (NEGATIVE); LEUKOCYTE ESTERASE ,URINE NEGATIVE (NEGATIVE); NITRITE, URINE NEGATIVE (NEGATIVE); UGLUCOSE NEGATIVE (NEGATIVE)
[2025-03-31 00:37] LABS: ADD URINE CULTURE NO; SQUAMOUS EPITHELIAL CELL,UR Moderate /HPF (None Seen)
[2025-03-31 00:38] LABS: FINE GRANULAR CASTS,URINE Moderate /LPF (None Seen); URINE AMORPHOUS URATE Moderate /HPF (None Seen)
[2025-03-31] MEDS: BACLOFEN (10 MG) 10 MG TABLET GT SCH (04:23)
[2025-03-31 04:54] LABS: PLATELET COUNT (AUTO) 138 K/uL (150-450); RED BLOOD CELL COUNT(AUTO) 2.98 MIL/uL (4.5-6.0); RED CELL DISTRIBUTION WIDTH 18.9 % (11.5-15.0); WHITE BLOOD COUNT (AUTO) 19.5 K/uL (4.3-11.0)
[2025-03-31 05:10] LABS: ASPARTATE AMINOTRANSFERASE 30.0 U/L (15-37); CALCIUM, SERUM 7.6 mg/dL (8.5-10.1); CREATININE 1.7 mg/dL (0.6-1.3); PHOSPHORUS 3.2 mg/dL (2.5-4.9); SODIUM SERUM 135.0 mmol/L (136-145); TOTAL PROTEIN, SERUM 6.7 g/dL (6.4-8.2); UREA NITROGEN, BLOOD 41.0 mg/dL (7-18)
[2025-03-31] MEDS: ASCORBIC ACID 500 MG TABLET GT SCH (08:26)
[2025-03-31] MEDS: CHLORHEXIDINE GLUCONATE 15 ML UDC MM SCH (08:26)
[2025-03-31] MEDS: ALPRAZOLAM 0.5 MG TABLET GT SCH (08:27)
[2025-03-31] MEDS: PANTOPRAZOLE 40 MG VIAL IV SCH (08:27)
[2025-03-31] MEDS: VANCOMYCIN 500 MG in IV D5W 100ml IV SCH (08:27)
[2025-03-31] MEDS: HEPARIN SODIUM, PORCINE 5000 UNITS/1 ML VIAL SQ SCH (08:28)
[2025-03-31] MEDS: MEROPENEM 1 G in IV NS 0.9% 100 ML IV SCH (11:39)
[2025-03-31] MEDS ORDERED: DOSING PER PHARMACY-CEFEPIME IVPB XX PRN (13:00)
[2025-03-31] MEDS: DIGOXIN 0.125 MG TABLET GT SCH (13:12)
[2025-03-31] MEDS: CEFEPIME 2 GM in IV D5W 100 ML IV SCH (16:57)
[2025-03-31] MEDS ORDERED: APIXABAN 2.5 MG TABLET PO SCH (17:00)
[2025-03-31] MEDS: NOREPINEPHRINE 8MG/250ML RTU 250 ML IV ONE (20:15)
[2025-04-01] VITALS (87 sets, daily range): BP systolic 73–119; BP diastolic 41–76; TEMP 97.5–98.5; O2SAT 96–100
[2025-04-01 04:40] LABS: ASPARTATE AMINOTRANSFERASE 22.0 U/L (15-37); TOTAL PROTEIN, SERUM 6.4 g/dL (6.4-8.2)
[2025-04-01] MEDS: ENOXAPARIN SODIUM 80 MG/0.8 ML DISP.SYRIN SQ SCH (09:49)
[2025-04-01] MEDS: HYDROCORTISONE SOD SUCCINATE 100 MG/2 ML VIAL IV SCH (10:48)
[2025-04-01 14:02] LABS: CALCIUM, SERUM 7.6 mg/dL (8.5-10.1); CREATININE 1.5 mg/dL (0.6-1.3); SODIUM SERUM 141.0 mmol/L (136-145); UREA NITROGEN, BLOOD 38.0 mg/dL (7-18)
[2025-04-01] MEDS: POTASSIUM CHLORIDE 20 MEQ POWDER PACKET GT SCH (15:34)
[2025-04-01 16:00] LABS: CREATININE, URINE 24.7 MG/DL (30.0-125.0); URINE SODIUM, RANDOM 28.0 mmol/l (40-220); URINE TOTAL PROTEIN 77.9 mg/dL (0-11.9)
[2025-04-02] VITALS (57 sets, daily range): BP systolic 80–127; BP diastolic 49–107; TEMP 96.5–98; O2SAT 97–100
[2025-04-02 04:45] LABS: PLATELET COUNT (AUTO) 154 K/uL (150-450); RED BLOOD CELL COUNT(AUTO) 3.17 MIL/uL (4.5-6.0); RED CELL DISTRIBUTION WIDTH 18.9 % (11.5-15.0); WHITE BLOOD COUNT (AUTO) 11.7 K/uL (4.3-11.0)
[2025-04-02 04:57] LABS: PHOSPHORUS 3.8 mg/dL (2.5-4.9)
[2025-04-02 05:03] LABS: LACTIC ACID 1.2 mmol/L (0.4-2.0)
[2025-04-02 05:06] LABS: CREATINE KINASE, TOTAL 14.0 U/L (39-308)
[2025-04-02 05:07] LABS: ASPARTATE AMINOTRANSFERASE 16.0 U/L (15-37); CALCIUM, SERUM 7.7 mg/dL (8.5-10.1); CREATININE 1.4 mg/dL (0.6-1.3); SODIUM SERUM 138.0 mmol/L (136-145); TOTAL PROTEIN, SERUM 6.8 g/dL (6.4-8.2); UREA NITROGEN, BLOOD 38.0 mg/dL (7-18)
[2025-04-02] MEDS: POLYVINYL ALCOHOL/POVIDONE 0.4 ML DROPERETTE EACHEYE PRN (07:55)
[2025-04-02] MEDS: PANTOPRAZOLE 40 MG/PACK PACK GT SCH (08:51)
[2025-04-02] MEDS: MEROPENEM 1 G in IV NS 0.9% 100 ML IV SCH (09:18)
[2025-04-03] VITALS (21 sets, daily range): BP systolic 83–107; BP diastolic 52–83; TEMP 97–97.5; O2SAT 100
[2025-04-03 03:37] LABS: PLATELET COUNT (AUTO) 122 K/uL (150-450); RED BLOOD CELL COUNT(AUTO) 3.02 MIL/uL (4.5-6.0); RED CELL DISTRIBUTION WIDTH 18.6 % (11.5-15.0); WHITE BLOOD COUNT (AUTO) 7.0 K/uL (4.3-11.0)
[2025-04-03 03:48] LABS: ASPARTATE AMINOTRANSFERASE 19.0 U/L (15-37); CALCIUM, SERUM 7.8 mg/dL (8.5-10.1); CREATININE 1.5 mg/dL (0.6-1.3); PHOSPHORUS 3.9 mg/dL (2.5-4.9); SODIUM SERUM 139.0 mmol/L (136-145); TOTAL PROTEIN, SERUM 6.4 g/dL (6.4-8.2); UREA NITROGEN, BLOOD 39.0 mg/dL (7-18)
[2025-04-03 07:10] LABS: PTH, INTACT 213 pg/mL (15-65)
[2025-04-03] MEDS: PROSOURCE / PROSTAT (PYXIS) 30 ML UDC GT SCH (15:35)
[2025-04-03] MEDS: JEVITY 1.5 CAL LIQUID 1,000 ML BOTTLE GT PRN (16:29)
[2025-04-04] VITALS: BP 92/56; TEMP 97.5; O2SAT 100
[2025-04-04 04:00] VITALS: BP 90/60; TEMP 97.3; O2SAT 100
[2025-04-04 08:00] VITALS: BP 107/64; TEMP 98.3; O2SAT 99
[2025-04-04 08:52] LABS: ASPARTATE AMINOTRANSFERASE 29.0 U/L (15-37); CALCIUM, SERUM 7.8 mg/dL (8.5-10.1); CREATININE 1.6 mg/dL (0.6-1.3); PHOSPHORUS 4.1 mg/dL (2.5-4.9); SODIUM SERUM 135.0 mmol/L (136-145); TOTAL PROTEIN, SERUM 6.8 g/dL (6.4-8.2); UREA NITROGEN, BLOOD 43.0 mg/dL (7-18)
[2025-04-04] MEDS ORDERED: HYDR100V6 IV (09:39)
[2025-04-04] MEDS ORDERED: MERO1VIA23 IV (09:39)
[2025-04-04 11:40] LABS: PLATELET COUNT (AUTO) 139 K/uL (150-450); RED BLOOD CELL COUNT(AUTO) 4.08 MIL/uL (4.5-6.0); RED CELL DISTRIBUTION WIDTH 19.6 % (11.5-15.0); WHITE BLOOD COUNT (AUTO) 12.6 K/uL (4.3-11.0)
[2025-04-04 12:00] VITALS: BP 100/73; TEMP 98; O2SAT 97
[2025-04-04 13:15] LABS: BASOPHILS % (MANUAL) 0 % (0.0-2.0); EOSINOPHILS % (MANUAL) 0 % (0-4); LYMPHOCYTES % (MANUAL) 11 % (16-48); MONOCYTES % (MANUAL) 14 % (0-11.0); NEUTROPHILS % (MANUAL) 75 (42-76); PLATELET ESTIMATE DECREASED
[2025-04-04 16:00] VITALS: BP 105/67; TEMP 98.1; O2SAT 100
[2025-04-04] MEDS ORDERED: HYDROCORTISONE SOD SUCCINATE 100 MG/2 ML VIAL IV SCH (21:00)
== END 2025-04-04 16:45 | disposition short-term general hospital (02) | DRG 870 ==
LOC: ER 17:56 → ICU 21:33 → TELE-TD 04-03 17:58 → TELE1 04-04 09:53 → UNDODISIN 04-04 16:45
PROVIDERS: ADMIT Nurse Practitioner Family; ATTEND Internal Medicine
PROC: 5A1955Z Respiratory Ventilation, Greater than 96 Consecutive Hours (ICD-10-PCS; principal; 2025-03-30)
PROC: 02HV33Z Insertion of Infusion Device into Superior Vena Cava, Percutaneous Approach (ICD-10-PCS; 2025-03-30)
DX: A41.51 Sepsis due to Escherichia coli [E. coli] (principal); G93.41 Metabolic encephalopathy; I21.A1 Myocardial infarction type 2; R65.21 Severe sepsis with septic shock; J96.20 Acute and chronic respiratory failure, unspecified whether with hypoxia or hypercapnia; E44.0 Moderate protein-calorie malnutrition; I50.32 Chronic diastolic (congestive) heart failure; N17.9 Acute kidney failure, unspecified; I13.0 Hypertensive heart and chronic kidney disease with heart failure and stage 1 through stage 4 chronic kidney disease, or unspecified chronic kidney disease; Z99.11 Dependence on respirator [ventilator] status; J90 Pleural effusion, not elsewhere classified; I48.20 Chronic atrial fibrillation, unspecified; J98.11 Atelectasis; R18.8 Other ascites; D68.9 Coagulation defect, unspecified; E27.40 Unspecified adrenocortical insufficiency; E87.1 Hypo-osmolality and hyponatremia; Z16.12 Extended spectrum beta lactamase (ESBL) resistance; K80.20 Calculus of gallbladder without cholecystitis without obstruction; K76.89 Other specified diseases of liver; B96.89 Other specified bacterial agents as the cause of diseases classified elsewhere; N18.9 Chronic kidney disease, unspecified; Z86.73 Personal history of transient ischemic attack (TIA), and cerebral infarction without residual deficits; Z93.1 Gastrostomy status; Z93.0 Tracheostomy status; R13.10 Dysphagia, unspecified; Z98.890 Other specified postprocedural states; Z79.4 Long term (current) use of insulin; G35.D Multiple sclerosis, unspecified; Z79.01 Long term (current) use of anticoagulants; Z79.51 Long term (current) use of inhaled steroids; Z79.899 Other long term (current) drug therapy; Z87.440 Personal history of urinary (tract) infections; Z86.19 Personal history of other infectious and parasitic diseases; E11.22 Type 2 diabetes mellitus with diabetic chronic kidney disease; K76.9 Liver disease, unspecified; D64.9 Anemia, unspecified; E88.09 Other disorders of plasma-protein metabolism, not elsewhere classified; Z87.19 Personal history of other diseases of the digestive system; I49.5 Sick sinus syndrome; K57.30 Diverticulosis of large intestine without perforation or abscess without bleeding; D69.6 Thrombocytopenia, unspecified; N21.0 Calculus in bladder; E80.6 Other disorders of bilirubin metabolism
CPT/HCPCS: 31720; 36415; 71045-TC; 76705-TC; 76770-TC; 80048-TC; 80053-TC; 80076-TC; 80202-TC; 81001; 82533; 82550-TC; 82570-TC; 83605-TC; 83690-TC; 83735-TC; 83970; 84100-TC; 84155; 84165; 84300-TC; 84484-TC; 85025-TC; 85027-TC; 85730-TC; 87040-TC; 87081-TC; 87086-TC; 87186-TC; 93307-TC; 94003-TC; 94760-TC; 94799-TC; 99082-TC; A4223; A6213; G0378; J0692; J1644; J1650; J1720; J2185; J2470; J3373; J3490; J7030; J7050; J7060

== ENCOUNTER 2025-05-19 10:29 | Inpatient (IN) | payer MEDICARE, OTHER ==
[~2025-05-19] VITALS: Ht 170.2 cm; Wt 83.9 kg
[~2025-05-19 10:29] MED LIST changes: -ALBU1.257 IH; +ALLA266C2 TP; +APIX2.5T GT; -APIX5TAB PO; -CEFT2VIA6 IJ; +HYDR100V6 IV; -LACT-209 GT; +MERO1VIA23 IV; +NEOM1OIN15 TP; +NUT.237L25 GT; -PETR113O TP
[2025-05-19] MEDS ORDERED: IV NS 0.9% 250 ML IV ONE (10:56)
[2025-05-19] MEDS ORDERED: CT SWABBABLE VALVE TRANS SET 1 EA INFUS.SET MC ONE (10:56)
[2025-05-19] MEDS ORDERED: IOHEXOL-300 100 ML VIAL IV ONE (10:56)
[2025-05-19] MEDS: IV NS 0.9% 1,000 ML BAG IV ONE (11:00)
[2025-05-19 11:12] LABS: PLATELET COUNT (AUTO) 258 K/uL (150-450); RED CELL DISTRIBUTION WIDTH 25.1 % (11.5-15.0); WHITE BLOOD COUNT (AUTO) 14.9 K/uL (4.3-11.0)
[2025-05-19] MEDS ORDERED: LACT-96 (11:13)
[2025-05-19] MEDS ORDERED: AMIN30LI25 GT (11:13)
[2025-05-19] MEDS ORDERED: ERYT400T83 GT (11:13)
[2025-05-19] MEDS ORDERED: [UNRECOGNIZED DRUG - REMARK] GT (11:13)
[2025-05-19 11:15] LABS: RED BLOOD CELL COUNT(AUTO) 1.43 MIL/uL (4.5-6.0)
[2025-05-19 11:16] LABS: ABG BASE EXCESS 7.1 mmol/L (-2.0-3.0); ABG OXYGEN SATURATION 94.2 % (94.0-98.0); ABG PCO2 42.6 mmHg (35.0-48.0); ABG PH 7.483 (7.350-7.450); ABG PO2 79.4 mmHg (83.0-108.0); ABG TOTAL HEMOGLOBIN 4.9 G/dL (13.5-17.5); FRACTIONATED INSPIRED OXYGEN 40.0 %; PEEP,BG 5 cm H2O; SET RATE, BG 18.0; SITE, ABG LEFT RADIAL; VT, ABG 500 mL
[2025-05-19 11:19] LABS: CALCIUM, SERUM 7.3 mg/dL (8.5-10.1); CREATININE 1.2 mg/dL (0.6-1.3); SODIUM SERUM 147 mmol/L (136-145); UREA NITROGEN, BLOOD 34 mg/dL (7-18)
[2025-05-19 11:25] LABS: ASPARTATE AMINOTRANSFERASE 21 U/L (15-37); TOTAL PROTEIN, SERUM 7.7 g/dL (6.4-8.2)
[2025-05-19 11:27] LABS: INR 1.35 (0.91-1.10)
[2025-05-19 11:30] LABS: LACTIC ACID 2.7 mmol/L (0.4-2.0)
[2025-05-19] MEDS: CEFEPIME 1 GM in IV D5W 50 ML IV ONE (11:30)
[2025-05-19] MEDS: PANTOPRAZOLE 80 MG in IV NS 0.9% 100 ML IV ONE (12:00)
[2025-05-19] MEDS: VANCOMYCIN 1 GM in IV D5W 250 ML IV ONE (13:00)
[2025-05-19] MEDS ORDERED: NOREPINEPHRINE 8MG/250ML RTU 250 ML IV ONE (13:22)
[2025-05-19] MEDS: NOREPINEPHRINE 8 MG in IV NS 0.9% 250 ML IV ONE (13:33)
[2025-05-19] MEDS: PANTOPRAZOLE 80 MG in IV NS 0.9% 500 ML IV ONE (14:00)
[2025-05-19] MEDS ORDERED: MORPHINE SULFATE INJ 2 MG/ML DISP.SYRIN IV PRN (15:30)
[2025-05-19] MEDS ORDERED: ONDANSETRON HCL/PF 4 MG/2 ML VIAL IVP PRN (15:30)
[2025-05-19 17:18] LABS: PLATELET ESTIMATE ADEQUATE
[2025-05-19 20:00] VITALS: BP 82/48; TEMP 98.1; O2SAT 97
[2025-05-20] VITALS (8 sets, daily range): BP systolic 76–99; BP diastolic 45–58; TEMP 97.5–98.4; O2SAT 100
[2025-05-20] MEDS: IV NS 0.9% 1,000 ML IV PRN ×2 (03:48→19:02)
[2025-05-20] MEDS ORDERED: ACETAMINOPHEN 650 MG/SUPP.RECT RC PRN (14:30)
[2025-05-20 18:01] LABS: PLATELET COUNT (AUTO) 256 K/uL (150-450); RED BLOOD CELL COUNT(AUTO) 2.44 MIL/uL (4.5-6.0); RED CELL DISTRIBUTION WIDTH 19.6 % (11.5-15.0); WHITE BLOOD COUNT (AUTO) 12.2 K/uL (4.3-11.0)
[2025-05-20 18:07] LABS: CALCIUM, SERUM 6.9 mg/dL (8.5-10.1); CREATININE 1.1 mg/dL (0.6-1.3); SODIUM SERUM 144 mmol/L (136-145); UREA NITROGEN, BLOOD 31 mg/dL (7-18)
[2025-05-20 18:19] LABS: ASPARTATE AMINOTRANSFERASE 18 U/L (15-37); TOTAL PROTEIN, SERUM 7.2 g/dL (6.4-8.2)
[2025-05-21] VITALS: BP 104/62; TEMP 97.7; O2SAT 100
[2025-05-21 04:00] VITALS: BP 112/64; TEMP 97.7; O2SAT 100
[2025-05-21 08:00] VITALS: BP 126/82; TEMP 97.5; O2SAT 100
[2025-05-21] MEDS ORDERED: DOCUSATE SODIUM LIQ 100 MG/10 ML UDC GT PRN (08:30)
[2025-05-21] MEDS ORDERED: ALBUTEROL FS 2.5 MG/3 ML VIAL.NEB NEB PRN (08:30)
[2025-05-21] MEDS: ALPRAZOLAM 0.5 MG TABLET GT SCH (09:00)
[2025-05-21] MEDS: ASCORBIC ACID 500 MG TABLET GT SCH (09:00)
[2025-05-21 12:00] VITALS: BP 105/58; TEMP 97.3; O2SAT 100
[2025-05-21] MEDS: ERYTHROMYCIN ETHYLSUCCINATE 200 MG/5 ML SUSPENSION GT SCH (12:27)
[2025-05-21] MEDS: BACLOFEN (10 MG) 10 MG TABLET GT SCH (12:27)
[2025-05-21] MEDS: DIGOXIN 0.125 MG TABLET GT SCH (12:28)
[2025-05-21] MEDS: ALBUTEROL FS 2.5 MG/3 ML VIAL.NEB NEB SCH (13:55)
[2025-05-21] MEDS: IPRATROPIUM NEB FS 0.5 MG/2.5 ML AMPUL.NEB NEB SCH (13:55)
[2025-05-21 16:00] VITALS: BP 115/64; TEMP 97.5; O2SAT 100
[2025-05-21] MEDS: APIXABAN 2.5 MG TABLET PO SCH (17:10)
[2025-05-21] MEDS: JEVITY 1.5 CAL LIQUID 1,000 ML BOTTLE GT PRN (17:35)
[2025-05-21 20:00] VITALS: BP 100/64; TEMP 97.6; O2SAT 100
[2025-05-21 20:53] LABS: OCCULT BLOOD STOOL NEGATIVE (NEGATIVE)
[2025-05-22] VITALS: BP 96/65; TEMP 97.8; O2SAT 100
[2025-05-22 04:00] VITALS: BP 105/64; TEMP 97.7; O2SAT 100
[2025-05-22 07:22] LABS: PLATELET COUNT (AUTO) 303 K/uL (150-450); RED BLOOD CELL COUNT(AUTO) 2.63 MIL/uL (4.5-6.0); RED CELL DISTRIBUTION WIDTH 19.6 % (11.5-15.0); WHITE BLOOD COUNT (AUTO) 12.1 K/uL (4.3-11.0)
[2025-05-22 08:00] VITALS: BP 113/76; TEMP 97.6; O2SAT 100
[2025-05-22 12:20] VITALS: BP 92/52; TEMP 97.6; O2SAT 100
[2025-05-22] MEDS ORDERED: IV NS 0.9% 500 ML IV ONE (13:00)
[2025-05-22] MEDS: IV NS 0.9% 500 ML IV ONE (13:22)
[2025-05-22 16:00] VITALS: BP 99/68; TEMP 97.7; O2SAT 100
[2025-05-22] MEDS: SCOPOLAMINE PATCH 1 MG/72HR TD SCH (16:33)
== END 2025-05-22 18:24 | DRG 871 ==
LOC: ER 10:31 → TELE 15:29 → TELE1 17:40
PROVIDERS: ADMIT Nurse Practitioner Acute Care; ATTEND Internal Medicine
PROC: 5A1945Z Respiratory Ventilation, 24-96 Consecutive Hours (ICD-10-PCS; principal; 2025-05-19)
PROC: 30233N1 Transfusion of Nonautologous Red Blood Cells into Peripheral Vein, Percutaneous Approach (ICD-10-PCS; 2025-05-19)
DX: A41.9 Sepsis, unspecified organism (principal); G93.41 Metabolic encephalopathy; J96.20 Acute and chronic respiratory failure, unspecified whether with hypoxia or hypercapnia; R65.21 Severe sepsis with septic shock; I26.99 Other pulmonary embolism without acute cor pulmonale; J15.69 Pneumonia due to other Gram-negative bacteria; R57.8 Other shock; G93.1 Anoxic brain damage, not elsewhere classified; J95.851 Ventilator associated pneumonia; J44.0 Chronic obstructive pulmonary disease with (acute) lower respiratory infection; K92.2 Gastrointestinal hemorrhage, unspecified; Z99.11 Dependence on respirator [ventilator] status; Z93.0 Tracheostomy status; Z79.01 Long term (current) use of anticoagulants; E11.9 Type 2 diabetes mellitus without complications; D64.9 Anemia, unspecified; I11.0 Hypertensive heart disease with heart failure; K76.9 Liver disease, unspecified; E27.40 Unspecified adrenocortical insufficiency; Z51.5 Encounter for palliative care; Z93.1 Gastrostomy status; Z86.73 Personal history of transient ischemic attack (TIA), and cerebral infarction without residual deficits; Z66 Do not resuscitate; R13.10 Dysphagia, unspecified; I95.89 Other hypotension; Z98.890 Other specified postprocedural states; I25.10 Atherosclerotic heart disease of native coronary artery without angina pectoris; G35.D Multiple sclerosis, unspecified; Z79.51 Long term (current) use of inhaled steroids; Z79.899 Other long term (current) drug therapy; K21.9 Gastro-esophageal reflux disease without esophagitis; I48.91 Unspecified atrial fibrillation; K80.20 Calculus of gallbladder without cholecystitis without obstruction; I49.5 Sick sinus syndrome; Y95 Nosocomial condition; Z87.440 Personal history of urinary (tract) infections; Y84.9 Medical procedure, unspecified as the cause of abnormal reaction of the patient, or of later complication, without mention of misadventure at the time of the procedure; Y92.129 Unspecified place in nursing home as the place of occurrence of the external cause; E86.1 Hypovolemia; I50.9 Heart failure, unspecified
CPT/HCPCS: 31720; 36415; 71045-TC; 71260-TC; 80048-TC; 80053-TC; 80076-TC; 82272-TC; 82803-TC; 82962-TC; 83605-TC; 84484-TC; 85025-TC; 85027-TC; 85730-TC; 86850-TC; 87040-TC; 87081-TC; 93970-TC; 94003-TC; 94760-TC; 94762-TC; 94799-TC; A6213; A6403; G0378; J0692; J2470; J3373; J7030; J7040; J7050; J7060; P9016; Q9967